=== PATIENT | female | born 1935 | race Caucasian/White ===

== ENCOUNTER 2023-12-31 06:58 | Day surgery (SDC) | payer MEDICARE, SELFPAY ==
--- NOTE | 2023-12-30 | HP_ITS ---
PREOPERATIVE HISTORY AND PHYSICAL Date:? 12/30/2023 HISTORY:? Patient is an 88-year-old, white female with complaints of declining vision out of her right eye.? She states that she believes this has occurred over the last 2-3 years, gradually worsening.? It has affected her distance/near vision, and examples of this are items such as watching television and working on the computer.? She states it is constant in nature, and has difficulty at night time with headlights creating glare and halos. PAST OCULAR HISTORY:? 1.? 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 2.? History of central retinal vein occlusion right eye. PAST MEDICAL HISTORY: 1.? Recurrent UTIs. 2.? Obesity. 3.? Arthritis. 4.? Total knee replacements bilaterally. SOCIAL HISTORY:? Denies tobacco, alcohol or recreational drug abuse.? SYSTEMIC MEDICATIONS:? Include cholecalciferol, albuterol, tamsulosin. ALLERGIES:? Denies. REVIEW OF SYSTEMS:? No pertinent positives. PHYSICAL EXAM:? GENERAL:? She is awake, alert and oriented x3, well developed, well nourished, in no acute distress.? HEART:? Regular rate and rhythm. LUNGS:? Clear bilaterally. ABDOMEN:? Soft, non-tender, non-distended. EXTREMITIES:? No pitting edema. OPHTHALMIC EXAM:? Revealed a visual acuity of 20/100 in the right and 20/400 in the left.?? Pupils motility, muscle balance, confrontational visual marte within normal limits bilaterally.? Pressures were measured at 16 bilaterally.? Slit lamp exam revealed blepharitis with a severe decrease in tear film bilaterally.? Conjunctiva, cornea, anterior chamber and iris were within normal limits bilaterally.? Lens status demonstrated 2+ nuclear sclerosis, 3+ cortical changes and 2+ PSC bilaterally. FUNDUS EXAM:? Revealed a good view with good dilation bilaterally.? Optic discs, vessels, periphery and vitreous were within normal limits bilaterally.? Macula demonstrated RPE changes with atrophy and < > in the right eye, and a large area of RPE atrophy with < > in the left eye.? ASSESSMENT AND PLAN:? Visually significant cataract, right eye. After risks, benefits, alternatives, as well as expectations were delivered to the patient, she elected to go forward with cataract removal.? She understands the risks include but not limited to infection, bleeding, loss of vision, loss of the eye itself.? Secondly, she understands postoperatively she is likely to require spectacle correction for best visual acuity.? Finally, a complete ophthalmic exam was performed, and she shows macular degeneration that I understood to be limiting her vision; however, the cataracts at this time are felt to be significant enough to contribute as well. After understanding all the risks as well as expectations, she elected to go forward with procedure as listed above and will be doing so in the near future. ALFA
--- NOTE | 2023-12-31 | OP_ITS ---
OP Note OPERATION DATE: ??12/31/2023 SURGEON:? Ovidio Mitchell M.D. PREOPERATIVE DIAGNOSIS:? Nuclear sclerotic cataract right eye. POSTOPERATIVE DIAGNOSIS:? Nuclear sclerotic cataract right eye. PROCEDURE NAME:? Cataract extraction with intraocular lens placement for the right eye. ANESTHESIA:? Topical. ESTIMATED BLOOD LOSS:? Zero. COMPLICATIONS:? None. PROCEDURE:? The patient was brought to the Operating Room in supine position.? After proper identification, the right eye was prepped and draped in a sterile ophthalmic fashion.? A paracentesis created at the 11 o'clock position.? Approximately 1 cc of unpreserved Xylocaine was injected into the anterior chamber followed by Amvisc Plus.? Using a 2.6 mm Keratome blade, a clear corneal incision was created at the 9 o'clock limbus.? A cystotome was then used to begin a curvilinear capsulorrhexis that was continued for 360 degrees with the Utrata forceps.? BSS on a 26 gauge cannula was injected beneath the anterior capsule to hydrodissect as well as hydrodelineate the lens.? After ensuring mobility, phacoemulsification was performed in a [id number]-type fashion.? After all nuclear material had been removed from the eye, IA was introduced and all residual cortical material was cleaned up.? Additional Amvisc Plus was injected into the posterior bag and a lens model MX60, 20.0 diopters was injected and dialed into position.? After ensuring centration, IA was re- introduced into the anterior chamber and all residual Amvisc Plus removed from the eye.? BSS on a 30 gauge cannula was injected into the stroma of both the clear corneal incision as well as paracentesis to hydrate the wounds.? Additional BSS was injected into the anterior chamber to pressurize the eye at approximately 20 to 22 mmHg by finger tension.? 0.1 cc of antibiotic was injected into the anterior chamber and Weck-Yelena sponges were used to check the wounds to be watertight.? One drop of apraclonidine and one drop of prednisolone acetate were placed into the eye and a shield was placed over top. The patient was sent to the postoperative area in satisfactory condition to follow up the following day for postoperative care. ALFA
[2023-12-31] MEDS: PHENYLEPHRINE HCL 2.5% OP SOL 40 DROP/2 ML BOTTLE OP ×4 (07:19→07:45)
[2023-12-31] MEDS: DIAZEPAM 5 MG TABLET PO (07:19)
[2023-12-31] MEDS: TROPICAMIDE 1% OP SOL 300 DROP/15 ML BOTTLE OP ×4 (07:20→07:46)
[2023-12-31] MEDS: CYCLOPENTOLATE HCL 1% OP SOL 40 DROP/2 ML BOTTLE OP ×4 (07:20→07:46)
[2023-12-31] MEDS: BESIFLOXACIN HCL 100 DROP DROPS.SUSP OP ×4 (07:20→07:46)
[2023-12-31 07:34] VITALS: BP 140/90; PULSE 76; TEMP 36.3; O2SAT 95
[2023-12-31] MEDS: PROPARACAINE HCL 0.5% 300 DROP/15 ML BOTTLE OP (08:31)
[2023-12-31 08:36] VITALS: BP 154/95; PULSE 66; O2SAT 96
[2023-12-31] MEDS: HYALURONATE SODIUM 16 MG/ML SYRINGE OP (08:38)
[2023-12-31] MEDS: LIDOCAINE 2% JELLY 10 ML TOPICAL (08:38)
[2023-12-31] MEDS: APRACLONIDINE HCL 0.5% SOL 100 DROP/5 ML BOTTLE OP (08:38)
[2023-12-31] MEDS: LIDOCAINE HCL 1% PF 20 MG/2 ML VIAL INJ (08:39)
[2023-12-31] MEDS: PHENYLEPHRINE/KETOROLAC 1-0.3% ML VIAL 4 ML IRR (08:39)
[2023-12-31] MEDS: BETADINE POVIDONE-IODINE 5% OP SOL 30 ML BOTTLE OP (08:39)
[2023-12-31] MEDS: TETRACAINE HCL 0.5% OP SOL 80 DROP/4 ML BOTTLE OP (08:40)
[2023-12-31] MEDS: PREDNISOLONE ACETATE OP 1% SUSP 100 DROPS/5 ML 1 DROP OP (08:40)
[2023-12-31 08:41] VITALS: BP 156/85; PULSE 66; O2SAT 96
[2023-12-31] MEDS: CEFUROXIME SODIUM 750 MG, 0.9 % SODIUM CHLORIDE 16.3 ML OP (08:41)
== END 2023-12-31 09:03 | disposition home or self-care (01) ==
LOC: SURGOUT 07:01
PROVIDERS: Visit Provider Ophthalmology
PROC: (CPT 66984; principal; 2023-12-31 08:20)
DX: H25.11 Age-related nuclear cataract, right eye (principal)
CPT/HCPCS: 66984; V2630

== ENCOUNTER 2024-02-04 06:39 | Day surgery (SDC) | payer MEDICARE, SELFPAY ==
--- NOTE | 2024-02-03 | HP_ITS ---
PREOPERATIVE HISTORY AND PHYSICAL Date:? 02/03/2024 HISTORY:? The patient is an 88-year-old white female with complaints of declining vision out of her left eye.? She believes that the onset of this has been gradual over the last 1-2 years.? Affects of distance vision such as road signs and the television.? She also states having night time difficulty with glare and halos.? Additionally, she states having difficulty reading. PAST OCULAR HISTORY / PAST MEDICAL HISTORY / SOCIAL HISTORY / MEDICATIONS / ALLERGIES TO MEDICATIONS / REVIEW OF SYSTEMS / PHYSICAL EXAM:? Unchanged from previously dictated. ASSESSMENT AND PLAN:? Visually significant cataract, left eye.? After risks, benefits, alternatives, as well as expectations were delivered to the patient, she elected to go forward with cataract removal.? She understands the risks include but not limited to infection, bleeding, loss of vision, loss of the eye itself.? Secondly, she understands postoperatively she is likely to require spectacle correction for best visual acuity.? Finally, a complete ophthalmic exam was performed, there is not determined to be any other source of visual decline other than that of the cataract.? After understanding all the risks as well as expectations, she elected to go forward with the procedure as listed above and will be doing so in the near future. ALFA
[2024-02-04] MEDS: CYCLOPENTOLATE HCL 1% OP SOL 40 DROP/2 ML BOTTLE OP ×4 (06:58→07:27)
[2024-02-04] MEDS: TROPICAMIDE 1% OP SOL 300 DROP/15 ML BOTTLE OP ×4 (06:58→07:27)
[2024-02-04] MEDS: PHENYLEPHRINE HCL 2.5% OP SOL 40 DROP/2 ML BOTTLE OP ×4 (06:59→07:27)
[2024-02-04] MEDS: BESIFLOXACIN HCL 100 DROP DROPS.SUSP OP ×4 (07:00→07:27)
[2024-02-04] MEDS: DIAZEPAM 5 MG TABLET PO (07:03)
[2024-02-04 07:07] VITALS: BP 159/95; PULSE 71; TEMP 35.8; O2SAT 95
[2024-02-04] MEDS: PROPARACAINE HCL 0.5% 300 DROP/15 ML BOTTLE OP (07:33)
[2024-02-04] MEDS: BETADINE POVIDONE-IODINE 5% OP SOL 30 ML BOTTLE OP (07:34)
[2024-02-04 07:40] VITALS: BP 148/90; PULSE 64; O2SAT 97
[2024-02-04] MEDS: APRACLONIDINE HCL 0.5% SOL 100 DROP/5 ML BOTTLE OP (07:44)
[2024-02-04] MEDS: LIDOCAINE 2% JELLY 10 ML TOPICAL (07:44)
[2024-02-04] MEDS: HYALURONATE SODIUM 16 MG/ML SYRINGE OP (07:44)
--- NOTE | 2024-02-04 07:44 | OP_ITS ---
OP Note OPERATION DATE: ??02/04/2024 SURGEON:? Ovidio Mitchell M.D. PREOPERATIVE DIAGNOSIS:? Nuclear sclerotic cataract left eye. POSTOPERATIVE DIAGNOSIS:? Nuclear sclerotic cataract left eye. PROCEDURE:? Cataract extraction with intraocular lens placed for the left eye. ANESTHESIA:? Topical ESTIMATED BLOOD LOSS:? Zero. COMPLICATIONS:? None. PROCEDURE:? The patient was brought to the Operating Room in supine position.? After proper identification, the left eye was prepped and draped in a sterile ophthalmic fashion.? A paracentesis created at the 5 o'clock position.? Approximately 1 cc of unpreserved Xylocaine was injected into the anterior chamber followed by Amvisc Plus.? Using a 2.6 mm Keratome blade, a clear corneal incision was created at the 2 o'clock limbus.? A cystotome was then used to begin a curvilinear capsulorrhexis that was continued for 360 degrees with the Utrata forceps.? BSS on a 26 gauge cannula was injected beneath the anterior capsule to hydrodissect as well as hydrodelineate the lens.? After ensuring mobility, phacoemulsification was performed in a [id number]-type fashion.? After all nuclear material had been removed from the eye, IA was introduced and all residual cortical material was cleaned up.? Additional Amvisc Plus was injected into the posterior bag and a lens model MX60, 18.0 diopters was injected and dialed into position.? After ensuring centration, IA was reintroduced into the anterior chamber and all residual Amvisc Plus was removed from the eye.? BSS on a 30 gauge cannula was injected into the stroma of both the clear corneal incision as well as paracentesis to hydrate the wounds.? Additional BSS was injected into the anterior chamber to pressurize the eye at approximately 20 to 22 mmHg by finger tension.? 0.1 cc of antibiotic was injected into the anterior chamber.? Weck-Yelena sponges were used to check the wounds to be watertight.? One drop of apraclonidine and one drop of prednisolone acetate placed into the eye and a shield was placed over top. The patient was sent to the postoperative area in satisfactory condition to follow up the following day for postoperative care. ALFA
[2024-02-04] MEDS: LIDOCAINE HCL 1% PF 20 MG/2 ML VIAL INJ (07:45)
[2024-02-04] MEDS: PREDNISOLONE ACETATE OP 1% SUSP 100 DROPS/5 ML 1 DROP OP (07:45)
[2024-02-04] MEDS: TETRACAINE HCL 0.5% OP SOL 80 DROP/4 ML BOTTLE OP (07:45)
[2024-02-04] MEDS: PHENYLEPHRINE/KETOROLAC 1-0.3% ML VIAL 4 ML IRR (07:45)
[2024-02-04] MEDS: CEFUROXIME SODIUM 750 MG, 0.9 % SODIUM CHLORIDE 16.3 ML OP (07:46)
[2024-02-04 07:49] VITALS: BP 160/88; PULSE 68; O2SAT 98
== END 2024-02-04 08:07 | disposition home or self-care (01) ==
LOC: SURGOUT 06:40
PROVIDERS: Visit Provider Ophthalmology
PROC: (CPT 66984; principal; 2024-02-04 07:30)
DX: H25.12 Age-related nuclear cataract, left eye (principal)
CPT/HCPCS: 66984; J0697; V2630

== ENCOUNTER 2024-02-04 07:33 | Outpatient (OUT) | payer MEDICARE, SELFPAY | END 2024-02-04 07:34 | disposition home or self-care (01) | LOC: PST 07:33 | PROVIDERS: Visit Provider Ophthalmology | DX: Z01.818 Encounter for other preprocedural examination (principal); H25.12 Age-related nuclear cataract, left eye ==

== ENCOUNTER 2024-08-17 15:19 | Outpatient (OUT) | payer MEDICARE, SELFPAY | END 2024-08-17 15:20 | disposition home or self-care (01) | LOC: WC 15:20 | PROVIDERS: Visit Provider Physician Assistant | DX: L97.919 Non-pressure chronic ulcer of unspecified part of right lower leg with unspecified severity (principal) | CPT/HCPCS: G0463 ==

== ENCOUNTER 2024-08-24 13:10 | Outpatient (RCR) | payer MEDICARE, SELFPAY | END 2024-09-28 14:00 | disposition home or self-care (01) | LOC: PT 13:10 | PROVIDERS: Visit Provider Neurological Surgery | DX: M48.00 Spinal stenosis, site unspecified (principal) | CPT/HCPCS: 97010; 97012; 97110; 97112; 97162; G0283 ==

== ENCOUNTER 2024-09-07 15:39 | Outpatient (OUT) | payer MEDICARE, SELFPAY | END 2024-09-07 15:40 | disposition home or self-care (01) | LOC: WC 15:39 | PROVIDERS: Visit Provider Physician Assistant | DX: L97.918 Non-pressure chronic ulcer of unspecified part of right lower leg with other specified severity (principal); L97.919 Non-pressure chronic ulcer of unspecified part of right lower leg with unspecified severity | CPT/HCPCS: 11042 ==

== ENCOUNTER 2024-09-28 11:03 | Outpatient (OUT) | payer MEDICARE, SELFPAY | END 2024-09-28 11:04 | disposition home or self-care (01) | LOC: WC 11:03 | PROVIDERS: Visit Provider Physician Assistant | DX: L97.812 Non-pressure chronic ulcer of other part of right lower leg with fat layer exposed (principal) | CPT/HCPCS: G0463 ==

== ENCOUNTER 2024-10-19 13:38 | Outpatient (OUT) | payer MEDICARE, SELFPAY | END 2024-10-19 13:39 | disposition home or self-care (01) | LOC: WC 13:38 | PROVIDERS: Visit Provider Physician Assistant | DX: L97.812 Non-pressure chronic ulcer of other part of right lower leg with fat layer exposed (principal) | CPT/HCPCS: G0463 ==

== ENCOUNTER 2024-11-09 11:15 | Outpatient (OUT) | payer MEDICARE, SELFPAY | END 2024-11-09 11:16 | disposition home or self-care (01) | LOC: WC 11:15 | PROVIDERS: Visit Provider Physician Assistant | DX: L97.812 Non-pressure chronic ulcer of other part of right lower leg with fat layer exposed (principal) | CPT/HCPCS: G0463 ==

== ENCOUNTER 2024-11-23 16:00 | Outpatient (OUT) | payer MEDICARE, SELFPAY | END 2024-11-23 16:01 | disposition home or self-care (01) | LOC: WC 16:01 | PROVIDERS: Visit Provider Physician Assistant | DX: L97.812 Non-pressure chronic ulcer of other part of right lower leg with fat layer exposed (principal) | CPT/HCPCS: A6213; G0463 ==

== ENCOUNTER 2024-12-07 14:36 | Outpatient (OUT) | payer MEDICARE, SELFPAY | END 2024-12-07 14:37 | disposition home or self-care (01) | LOC: WC 14:36 | PROVIDERS: Visit Provider Physician Assistant | DX: L97.812 Non-pressure chronic ulcer of other part of right lower leg with fat layer exposed (principal) | CPT/HCPCS: G0463 ==

== ENCOUNTER 2025-02-18 12:54 | Outpatient (OUT) | payer MEDICARE, SELFPAY ==
--- NOTE | 2025-02-18 | XR_ITS ---
[facility] [place] [id number] Patient Name: JERRICA ROCK MRN: [id number] date: 1935 Sex: F Assigned Patient Location: [facility] Current Patient Location: [facility] Accession/Order Number: [id number] Exam Date: 02/18/2025 13:18 Report Date: 02/18/2025 13:19 At the request of: CORAZON PIEDRA Procedure: XR abdomen 1V KUB: CLINICAL INFORMATION: Kidney stone follow-up COMPARISON: CT abdomen and pelvis 07/22/2022 FINDINGS: No suspicious urinary tract calculus. No bowel obstruction or free air. Osseous structures demonstrate degenerative change. XR/XR abdomen 1V IMPRESSION: NO SUSPICIOUS OR URINARY TRACT CALCULUS. Impression dictated by: Samina Coreas Jr.ORacheal 02/18/2025 1:19 PM Dictation Location: [place] [id number] Electronically authenticated by: [id number] Y Date: 02/18/2025 13:19
--- OUTSIDE RECORDS SUMMARY | 2025-02-18 13:01 | XMS_ITS | CCD ---
Author Organization [facility] Inform ion Partnership [facility] Care Team Providers Care Commercial Helicopter Pilot Name Role Phone Hollie, Julius Unavailable Unavailable Family Physician Unavailable Unavailable Hanna vailable Hollie, Julius Unavailable Unavailable Hollie, Julius Unavailable Unavailable Family Physician Unavailable Unavailable Hanna vailable Hollie, Julius Unavailable Unavailable Yelena MICHELLE Primary Care Physician [phone] Jhon Cartwright Unavailable Andi Asher Unavailable Nazia Haney Unavailable DR YELENA MICHELLE Primary Care Unavailable ARIAN MEDINA Admitting Unavailable ARIAN MEDINA Attending Unavailable PAY, DR ALEXANDRA Consulting Unavailable SHAIKH Oscar MCCALL Consulting Unavailable BETH TURCIOS Consulting Unavailable HAYLEY DE DIOS Consulting Unavailable Unavailable Primary Care Provider UnavailYelena Mcguire MD Primary Care Provider [phone] YELENA MICHELLE Primary Care Unavailable RODY, ZAINULABEDIN Referring Unavailable YELENA MICHELLE Primary Care Unavailable ALY MONROE JR Admitting Unavailable ALY MONROE JR Attending Unavailable RODY, ZAINULABEDIN Attending Unavailable HENRY HARMON Consulting Unavailable RODY, ZAINULABEDIN Admitting Unavailable RODY, ZAINULABEDIN Consulting Unavailable MD Yelena Michelle Primary Care Provider MD Dallin Contreras II Attending Provider Dallin Contreras II Unavailable [phone] MD Yelena Michelle Primary Care Provider [phone] DO Avel Mcghee Attending Provider [phone] MD Roque Renee Attending Provider MD Regina Nick Referring Provider Yelena Michelle MD Primary Care Provider MICHAEL CRESPO Attending Unavailable MICHAEL CRESPO Attending Unavailable COLLEEN RAY Attending Unavailable COLLEEN RAY Attending Unavailable ORIANA MORRISON Attending Unavailable TANIKA WIN Referring Unavailable Yelena Michelle MD Primary Care Provider [phone] Matthew Bravo DO Attending Provider [phone] Regina Nick Attending Unavailabl e David-Malena, Regina Yaser Admitting Unavailabl e Yelena MICHELLE Attending Unavailable David-Malena, Regina He Attending Unavailabl e Al-Malena, Regina Yaser Referring Unavailabl e Al-Malena, Regina He Attending Unavailabl e David-Malena, Regina He Admitting Unavailabl Yelena Dupree MD Primary Care Provider Matthew Bravo DO Attending Provider Rex London MD Attending Provider [phone] Radha Waters Attending Unavailable Radha Waters Attending Unavailable Yelena MICHELLE Attending Unavailable Yelena MICHELLE Attending Unavailable Yelena MICHELLE Attending Unavailable Yelena Osorio Attending Unavailable Edmond Vidal Admitting Unavailable Edmond Vidal Attending Unavailable NONE, XXXX Referring Unavailable COLE FRANCIS Admitting Unavailab COLE Hdz Attending Unavailab Yelena Castelan Admitting Unavailable Yelena MICHELLE Attending Unavailable Radha Waters Attending Unavailable Yelena MICHELLE Attending Unavailable Yelena MICHELLE Admitting Unavailable Yelena Osorio Attending Unavailable Yelena MICHELLE Attending Unavailable Yelena Osorio Attending Unavailable Yelena MICHELLE Attending Unavailable Yelena MICHELLE Admitting Unavailable Rex London Attending Unavailable Rex London Admitting Unavailable Yelena Michelle Primary Care Unavailable Matthew Bravo Admitting Unavailable Yelena Michelle Primary Care Unavailable Matthew Bravo Attending Unavailable Yelena Michelle MD Primary Care Provider [phone] Yelena MICHELLE Attending Unavailable Yelena MICHELLE Attending Unavailable Yelena MICHELLE Attending Unavailable Yelena Osorio Attending Unavailable CORAZON FRANCIS Attending Unavailable Al-Maralfonso, Regina He Attending Unavailabl e COLE Vidal Admitting Unavailable COLE Vidal Attending Unavailable NONE, XXXX Referring Unavailable Al-Marrawi, Regina Yaser Attending Unavailabl e Al-Marrawi, Regina Yaser Referring Unavailabl e Al-Marrawi, Mhd Yaser Admitting Unavailabl e Al-Marrawi, Arelid Yaser Attending Unavailabl e Al-Marrawi, Arelid Yaser Admitting Unavailabl e Radha Waters Attending Unavailable Edmond Vidal Admitting Unavailable Edmond Vidal Attending Unavailable NONE, XXXX Referring Unavailable Edmond Vidal Admitting Unavailable Edmond Vidal Attending Unavailable Edmond Vidal Referring Unavailable Al-Maralfonso, Regina He Admitting Unavailabl e Al-Maralfonso, Regina He Attending Unavailabl Yelena Dupree Admitting Unavailable Yelena MICHELLE Attending Unavailable Yelena MICHELLE Attending Unavailable Yelena MICHELLE Attending Unavailable WAYNE, Yelena Howard Attending Unavailable WAYNE, Yelena Howard Attending Unavailable Yelena MICHELLE Attending Unavailable Al-Malena, Regina He Attending Unavailabl e Al-Marrawi, Regina He Admitting Unavailabl e Yelena MICHELLE Admitting Unavailable Yelena MICHELLE Attending Unavailable Yelena MICHELLE Attending Unavailable Yelena Michelle MD Primary Care Provider [phone] Rex London MD Attending Provider Matthew Bravo DO Attending Provider Amberly Ortega NP Attending Provider [phone] Yelena MICHELLE Attending Unavailable Yelena MICHELLE Admitting Unavailable David-Malena, Regian He Attending Unavailabl e Al-Marradevin, Regina He Admitting Unavailabl e CORAZON FRANCIS Attending Unavailable Medications Current Medications Medication Drug Class(es) Dates Sig (Normalized) Sig (Original) Acetaminophen (20 sources) Start: 07-23-2022 acetaminophen (TYLENOL) tablet 650 mg Start: 02-06-2022 Tylenol 8 Hour Caplet 650 mg oral tablet, extended release 1,300 mg = 2 tab(s), Oral, BID, Refills(s) 0 Start Date: 02/06/22 Status: Ordered Start: 10-30-2021 take 650 mg by mouth every four hours Tylenol 650 mg, Oral, q4hr, Refills(s) 0 Start Date: 10/30/21 Status: Ordered Start: 06-25-2020 End: 07-17-2020 take 2 tablets by mouth once as needed for pain Acetaminophen (Tylenol) 325 mg Tablet Discontinued 650 MG PO Once as needed for Pain June 25, 2020 1:00am July 17, 2020 12:31pm [id number] 200 actuat albuterol 0.09 mg/actuat metered dose inhaler (14 sources) beta2-Adrenergic Agonist Start: 06-10-2022 take 2 puff(s) by mouth every four hours as needed albuterol HFA 90 mcg/act inhaler INHALE 2 PUFFS BY MOUTH EVERY 4 HOURS NEEDED FOR 14 DAYS 06/10/2022 Active Start: 06-10-2022 take 2 puff(s) by in halation every four hours as needed Albuterol Sulfate HFA 108 (90 Base) MCG/ACT 2 puffs as needed Inhalation every 4 hours for 14 days May, Active alendronic acid 70 mg oral tablet (18 sources) Bisphosphonate Start: 09-23-2024 take 1 tablet by mouth every week Alendronate 70 mg tablet Active 70 MG PO every week September 23, 2024 1:00am Complies with drug therapy Start: 08-29-2024 take 6-8 [oz_av] by mouth once daily Fosamax 70 mg Tab 70 mg = 1 tab(s), Oral, q7day, Take 1 tablet once a week, with 6-8 oz plain water, at least 30 minutes before first food, beverage, or medication of the day. Remain in upright position for at least 30 min. after taking tablet., # 12 tab(s), Refills(s) 2, Pharmacy: [facility]/pharmacy #[id number], 162, cm, 08/29/24 11:15:00 EST, Height/Length Dosing, 82.1, kg, 08/29/24 11:15:00 EST, Weight Dosing Start Date: 08/29/24 Status: Ordered Quantity: 12.0 Unit: tab(s) Repeat number: 3 Indications: Monoclonal gammopathy; Personal history of malignant neoplasm of breast; Other specified disorders of bone density and structure, unspecified site; Start: 08-04-2023 Fosamax 70 mg Tab 70 mg = 1 tab(s), Oral, q7day, # 12 tab(s), Refills(s) 3, Pharmacy: [facility]/pharmacy #[id number], 162, cm, 08/03/23 9:39:00 EST, Height/Length Dosing, 84.7, kg, 08/03/23 9:39:00 EST, Weight Dosing Start Date: 08/04/23 Status: Ordered amoxicillin 500 mg / clavulanate 125 mg oral tablet (1 source) Penicillin-class Antibacterial Start: 07-23-2022 End: 07-28-2022 take 1 tablet by mouth once at bedtime amoxicillin-clavulanate (AUGMENTIN) 500-125 MG per tablet Take 1 tablet by mouth in the morning and at bedtime for 5 days 10 tablet 0 07/23/2022 07/28/2022 Active Areds 2 (17 sources) Start: 06-25-2020 take 1 tablet by mouth twice daily Areds 2 Active 1 TAB PO Twice daily June 25, 2020 1:00am Complies with drug therapy Start: 06-25-2020 take 1 tablet by koffi th twice daily Areds 2 Active 1 TAB PO Twice daily June 25, 2020 12:00am Start: 06-25-2020 take 1 tablet by koffi th twice daily Areds 2 Active 1 TAB PO Twice daily June 25, 2020 1:00am ascorbic acid 500 mg oral tablet (20 sources) Vitamin C Start: 10-16-2020 take 500 mg by mouth once daily Vitamin C 500 mg, Oral, Daily, Refills(s) 0, Prophylaxis Start Date: 10/16/20 Status: Ordered Vitamin C Active Aspir-81 81 MG (2 sources) take 1 tablet by mouth once daily Aspir-81 81 MG 1 tablet Orally Once a day Active aspirin 81 mg delayed release oral tablet (20 sources) Platelet Aggregation Inhibitor, Nonsteroidal Anti-inflammatory Drug Start: 10-03-2023 take 1 tablet by mouth once daily ASPIRIN 81 PO TAKE 1 TABLET BY MOUTH EVERY DAY 10/03/2023 Active Start: 10-03-2023 take 1 tablet by mouth once As pirin 81 mg tablet,delayed release (DR/EC) Active 81 MG PO Once December 12, 2024 2:30pm Complies with drug therapy Start: 07-10-2020 End: 12-12-2024 take 1 tablet by mouth twice daily Aspirin 81 mg Tablet,Delayed Release (Dr/Ec) Discontinued 81 MG PO Twice daily 40 July 17, 2020 1:00am December 12, 2024 2:31pm Start: 08-05-2017 End: 06-25-2020 take 1 tablet by mouth once daily Aspirin 81 mg Tablet,Chewable Discontinued 1 TAB PO Daily August 05, 2017 1:00am June 25, 2020 2:57pm azithromycin 500 mg oral tablet (2 sources) Macrolide Antimicrobial Start: 10-03-2023 End: 10-05-2023 take 1 tablet by mouth once daily azithromycin 500 mg oral tablet 500 mg = 1 tab(s), Oral, Daily, X 2 day(s), # 2 tab(s), Refills(s) 0, Pharmacy: [facility]/pharmacy #[id number], 162, cm, 09/30/23 16:48:00 EST, Height/Length Dosing, 88.7, kg, 09/30/23 16:48:00 EST, Weight Dosing Start Date: 10/03/23 Stop Date: 10/05/23 Status: Ordered Start: 06-10-2022 Azithromycin 2 50 MG 2 tablet on the first day, then 1 tablet daily for 4 days Orally Once a day for 5 day(s) May, Active B-12 (20 sources) Start: 01-02-2020 B-12 1,000 microgram, Oral, Daily, Refills(s) 0, Prophylaxis Start Date: 01/02/20 Status: Ordered benzonatate 100 mg oral capsule (1 source) Non-narcotic Antitussive Start: 06-10-2022 take 1 capsule by mouth every eight hours Tessalon Perles 100 MG 1 capsule as needed Orally Three times a day for 7 days May, Active Calcium (20 sources) Phosphate Binder, Calcium Start: 03-30-2015 Calcium 500+D 1 tab(s), Chewed, Daily, Refill(s) 0, Prophylaxis Start Date: 03/30/15 Status: Ordered calcium 200 MG t ablet 1 tab Oral Active Calcium + D Acti ve calcium carbonate 1250 mg / cholecalciferol 200 unt oral tablet (20 sources) Vitamin D Start: 08-24-2017 End: 07-17-2020 take 1 tablet by mouth once daily Calcium Carbonate-Vitamin D3 (Oyster Shell Calcium-Vit D3) 500 mg(1,250mg) -200 unit Tablet Active 1 TAB PO Daily July 17, 2020 1:00am Complies with drug therapy Calcium Carbonate-Vitamin D3 (Oyster Shell Calcium-Vit D3) 500 mg(1,250mg) -200 unit Tablet (7 sources) Start: 07-17-2020 take 1 tablet by mouth once daily Calcium Carbonate-Vitamin D3 (Oyster Shell Calcium-Vit D3) 500 mg(1,250mg) -200 unit Tablet Active 1 TAB PO Daily July 17, 2020 1:00am Calcium Plus Vitamin D3 (20 sources) Start: 04-10-2023 take 1 tablet by mouth twice daily Calcium Plus Vitamin D3 1 tab, Oral, BID, Refill(s) 0, Prophylaxis Start Date: 04/10/23 Status: Ordered Repeat number: 1 Start: 04-10-2023 take 1 tablet by koffi twice daily Calcium Plus Vitamin D3 1 tab, Oral, BID, Refill(s) 0, Prophylaxis Start Date: 04/10/23 Status: Ordered cefTRIAXone (ROCEPHIN) 1,000 mg in sterile water 10 mL IV syringe (1 source) Start: 07-23-2022 cefTRIAXone (ROCEPHIN) 1,000 mg in sterile water 10 mL IV syringe ciclopirox 7.7 mg/ml topical cream (8 sources) Start: 03-29-2024 ciclopirox (Lo prox) 0.77 % cream Indications: Erythema intertrigo Apply thin layer to affected area once a day, 30 day supply 30 g 11 03/29/2024 Active colesevelam hydrochloride 625 mg oral tablet (20 sources) Bile Acid Sequestrant Start: 09-23-2024 Coleseve cortes 625 mg tablet Active MG PO September 23, 2024 1:00am Start: 06-15-2024 take 3 tablets by mo [facility] twice daily Colesevelam 625 mg tablet Active 1875 MG PO Twice daily September 23, 2024 1:00am Complies with drug therapy cyclobenzaprine hydrochloride 10 mg oral tablet (1 source) Muscle Relaxant Start: 11-24-2021 End: 11-29-2021 take 1 tablet by mouth three times daily cyclobenzaprine 10 mg Tab 10 mg = 1 tab(s), Oral, TID, X 5 day(s), # 15 tab(s), Refills(s) 0, Pharmacy: [facility]/pharmacy #[id number], 165, cm, 11/24/21 8:54:00 EDT, Height/Length Dosing, 92.1, kg, 11/24/21 8:54:00 EDT, Weight Dosing Start Date: 11/24/21 Stop Date: 11/29/21 Status: Ordered diclofenac sodium 0.01 mg/mg topical gel (15 sources) Nonsteroidal Anti-inflammatory Drug Start: 11-27-2022 diclofenac sodium 1 % gel Apply topically 3 (three) times a day. 11/27/2022 Active Start: 10-30-2022 Voltaren 1 % A pply 1-2 grams to the affected area Externally 4-5 times a day for 30 days Oct, Active diphenhydrAMINE hydrochloride 25 mg oral capsule (20 sources) Histamine-1 Receptor Antagonist Start: 09-23-2024 take 1 capsule by mouth once daily at bedtime as needed Diphenhydramine Hcl (Benadryl) 25 mg capsule Active 25 MG PO Daily at bedtime as needed for insomnia September 23, 2024 1:00am Complies with drug therapy Start: 12-09-2018 take 25 mg by mouth once daily at bedtime Benadryl 25 mg, Oral, Once a day (at bedtime), takes OTC rx, Allergy symptoms Start Date: 12/09/18 Status: Ordered Repeat number: 1 Start: 08-24-2017 End: 07-17-2020 take 1 tablet by mouth every four to six hours as needed Diphenhydramine Hcl (Benadryl Allergy) 25 mg Tablet Discontinued 25 MG PO EVERY 4-6 HOURS as needed for Allergy Symptoms August 24, 2017 1:00am July 17, 2020 12:31pm diphenhydrAMINE (BENADryl) 25 MG capsule Take 25 mg by mouth as needed at bedtime. Active Benadryl Active 0.4 ml enoxaparin sodium 100 mg/ml prefilled syringe (1 source) Low Molecular Weight Heparin Start: 07-23-2022 enoxaparin (LOVENOX) injection 40 mg 12 hr guaiFENesin 600 mg extended release oral tablet (1 source) Start: 10-03-2023 End: 10-08-2023 take 2 tablets by mouth twice daily Mucinex 600 mg Tab-ER 1,200 mg = 2 tab(s), Oral, BID, X 5 day(s), # 20 tab(s), Refills(s) 0, Pharmacy: [facility]/pharmacy #[id number], 162, cm, 09/30/23 16:48:00 EST, Height/Length Dosing, 88.7, kg, 09/30/23 16:48:00 EST, Weight Dosing Start Date: 10/03/23 Stop Date: 10/08/23 Status: Ordered Handicap Parking Permit (7 sources) Start: 03-20-2023 Handicap Parking Permit Handicap Parking Permit, See Instructions, 1 EA, 0, One placard for 5 years., Supply Start Date: 03/20/23 Status: Ordered hydroCHLOROthiazide 25 mg / triamterene 37.5 mg oral tablet (20 sources) Potassium-spari ng Diuretic, Thiazide Diuretic Start: 11-22-2024 hydrochlorothiaz frantz-triamterene 25 mg-37.5 mg Tab See Instructions, 90 tab(s), Refill(s) 3, TAKE 1 TABLET BY MOUTH DAILY NEEDED FOR LEG SWELLING, [id number], 162, cm, 10/26/24 10:12:00 EDT, Height/Length Dosing, 80.5, kg, 10/26/24 10:12:00 EDT, Weight Dosing Start Date: 11/22/24 Status: Ordered Quantity: 90.0 Unit: tab(s) Repeat number: 1 Start: 05-07-2021 take 1 tablet by mouth once daily hydrochlorothiazide-triamterene 25 mg-37 .5 mg Tab 1 tab(s), Oral, Daily leg swelling, 30 tab(s), Refill(s) 5, [facility]/pharmacy #[id number], 162, cm, 04/05/24 13:53:00 EDT, Height/Length Dosing, 85.7, kg, 04/05/24 13:53:00 EDT, Weight Dosing Start Date: 04/05/24 Status: Ordered ibuprofen 800 mg oral tablet (20 sources) Nonsteroidal Anti-inflammatory Drug Start: 02-06-2022 take 800 mg by mouth every eight hours ibuprofen 800 mg, Oral, q8hr, Refills(s) 0 Start Date: 02/06/22 Status: Ordered Start: 08-24-2017 End: 06-25-2020 take 1 capsule by mouth every six hours as needed for pain Ibuprofen 200 mg Capsule Discontinued 200 MG PO Q6H as needed for Pain August 24, 2017 1:00am June 25, 2020 2:59pm letrozole 2.5 mg oral tablet (20 sources) Aromatase Inhibitor Start: 05-25-2023 End: 04-20-2025 take 1 tablet by mouth once daily Letrozole 2.5 mg tablet Active 2.5 MG PO Daily September 23, 2024 1:00am Complies with drug therapy lidocaine 0.05 mg/mg medicated patch (12 sources) Antiarrhythmic, Amide Local Anesthetic Start: 11-24-2021 Lidoderm 5% Patch 1 patch(es), Topical, Daily, 7 EA, Refill(s) 0, apply 12 hours on and 12 hours off daily, [facility]/pharmacy #[id number], 165, cm, 11/24/21 8:54:00 EDT, Height/Length Dosing, 92.1, kg, 11/24/21 8:54:00 EDT, Weight Dosing Start Date: 11/24/21 Status: Ordered Start: 11-24-2021 Lidoderm 5% Pa tch 1 patch(es), Topical, Daily, 7 EA, Refill(s) 0, apply 12 hours on and 12 hours off daily, [facility]/pharmacy #[id number], 165, cm, 11/24/21 8:54:00 EDT, Height/Length Dosing, 92.1, kg, 11/24/21 8:54:00 EDT, Weight Dosing Start Date: 11/24/21 Status: Ordered Loperamide (20 sources) Opioid Agonist Start: 07-15-2023 loperamide PRN as needed for loose stool, Refills(s) 0 Start Date: 07/15/23 Status: Ordered Repeat number: 1 Start: 07-15-2023 loperamide PRN as needed for loose stool, Refills(s) 0 Start Date: 07/15/23 Status: Ordered Start: 07-15-2023 loperamide Ref ills(s) 0 Start Date: 07/15/23 Status: Ordered Start: 04-29-2017 End: 07-17-2020 take 1 tablet by mouth every three hours as needed for diarrhea Loperamide 2 mg Tablet Discontinued 1 TAB PO Q3H as needed for Diarrhea April 29, 2017 12:00am July 17, 2020 12:31pm Start: 03-29-2015 take 2 mg by mouth t wice daily as needed Imodium A-D 2 mg, Oral, BID, PRN Loose stool, and prn, Refills(s) 0 Start Date: 03/29/15 Status: Ordered take 1 tablet by koffi th every six hours loperamide (Imodium A-D) 2 MG tablet Take 2 mg by mouth every 6 (six) hours. Active Loperamide / Simethicone (2 sources) Opioid Agonist Imodium Advanced 2-125 MG as directed Orally Active magnesium hydroxide 80 mg/ml oral suspension (1 source) Start: 07-23-2022 magnesium hydroxide (MILK OF MAGNESIA) 400 MG/5ML suspension 30 mL mecobalamin 1 mg chewable tablet (20 sources) Start: 05-25-2023 take 1 tablet by mouth once daily Mecobalamin (Vitamin B12) (B12 Active) 1,000 mcg Tablet,Chewable Active 1000 MCG PO Daily May 25, 2023 12:00am Complies with drug therapy Start: 06-25-2020 End: 07-17-2020 take 1 tablet by mouth once daily Mecobalamin (Vitamin B12) (B12 Active) 1,000 mcg Tablet,Chewable Discontinued 1000 MCG PO Daily June 25, 2020 1:00am July 17, 2020 12:31pm Start: 06-25-2020 End: 07-17-2020 take 1 tablet by mouth once daily Mecobalamin (Vitamin B12) (B12 Active) 1,000 mcg Tablet,Chewable Discontinued 1000 MCG PO Daily June 25, 2020 12:00am July 17, 2020 11:31am Start: 06-25-2020 End: 07-17-2020 take 1 tablet by mouth once daily Mecobalamin (Vitamin B12) (B12 Active) 1,000 mcg Tablet,Chewable Discontinued 1000 MCG PO Daily June 25, 2020 1:00am July 17, 2020 12:31pm Medrol Dosepack 4 mg Tab (1 source) Start: 11-24-2021 End: 11-30-2021 Medrol Dosepack 4 mg Tab = 1 packet(s), Oral, As Directed, as directed on package labeling, X 6 day(s), # 21 tab(s), Refills(s) 0, Pharmacy: [facility]/pharmacy #[id number], 165, cm, 11/24/21 8:54:00 EDT, Height/Length Dosing, 92.1, kg, 11/24/21 8:54:00 EDT, Weight Dosing Start Date: 11/24/21 Stop Date: 11/30/21 Status: Ordered methylPREDNISolone 4 mg oral tablet (5 sources) Corticosteroid Start: 10-30-2022 Medrol 4 MG as directed Orally as directed for 6 days Oct, Active Start: 06-10-2022 methylPREDNISo lone 4 MG as directed Orally for daily dose take half with breakfast, half with dinner for 6 days May, Active Start: 11-21-2015 Depo-Medrol 80 mg Oct, 80 mg 24 hr metoprolol succinate 50 mg extended release oral tablet (20 sources) beta-Adrenergic Dawood Start: 09-23-2024 take 1 tablet by mouth every twenty-four hours Metoprolol Succinate 50 mg tablet extended release 24 hr Active MG PO September 23, 2024 1:00am Start: 07-18-2024 take 1 tablet by koffi th once daily Metoprolol Succinate 50 mg tablet extended release 24 hr Active 50 MG PO Daily September 23, 2024 1:00am Complies with drug therapy Start: 12-16-2023 take 1 tablet by koffi th once daily Toprol XL 50 mg Tab-ER 50 mg = 1 tab(s), Oral, Daily, # 30 tab(s), Refills(s) 5, Pharmacy: [facility]/pharmacy #[id number], 162, cm, 12/16/23 13:49:00 EDT, Height/Length Dosing, 84.6, kg, 12/16/23 13:49:00 EDT, Weight Dosing Start Date: 12/16/23 Status: Ordered Start: 09-17-2023 End: 10-03-2023 take 1 tablet by mouth once daily Toprol XL 25 mg Tab-ER 25 mg = 1 tab(s), Oral, Daily, # 30 tab(s), Refills(s) 6, Pharmacy: [facility]/pharmacy #[id number], 162, cm, 09/17/23 13:16:00 EST, Height/Length Dosing, 88.7, kg, 09/17/23 13:16:00 EST, Weight Dosing Start Date: 09/17/23 Status: Ordered Start: 07-23-2022 metoprolol (LO PRESSOR) injection 5 mg Start: 07-23-2022 End: 08-22-2022 take 1 tablet by mouth twice daily metoprolol tartrate (LOPRESSOR) 25 MG tablet Take 1 tablet by mouth 2 times daily 60 tablet 0 07/23/2022 Active metroNIDAZOLE 500 mg oral tablet (2 sources) Nitroimidazole Antimicrobial take 1 tablet by mouth every eight hours metroNIDAZOLE 500 MG 1 tablet Orally Three times a day Active 24 hr mirabegron 25 mg extended release oral tablet (1 source) beta3-Adrenergic Agonist Start: End: take 1 tablet by mouth once daily Myrbetriq 25 mg oral tablet, extended release 25 mg = 1 tab(s), Oral, Daily, X 30 day(s), # 30 tab(s), Refills(s) 11, [id number], 165, cm, 10/27/22 14:19:00 EDT, Height/Length Dosing, 83, kg, 10/27/22 14:19:00 EDT, Weight Dosing Start Date: 10/27/22 Stop Date: 10/22/23 Status: Ordered Misc Medication (1 source) Start: Misc Medication See Instructions, AERDS one tablet BID Start Date: 10/30/21 Status: Ordered Multiple Vitamins-Minerals (ICAPS AREDS FORMULA PO) (13 sources) Multiple Vitamins-Minerals (ICAPS AREDS FORMULA PO) Take by mouth Daily. Active omeprazole 40 mg delayed release oral capsule (20 sources) Proton Pump Inhibitor Start: End: take 1 capsule by mouth before mealtime omeprazole (PriLOSEC) [address] capsule Take 40 mg by mouth in the morning. Take before meals. 12/25/2022 Active take 1 capsule by mouth once xochilt ly Omeprazole 40 MG TAKE 1 CAPSULE BY MOUTH EVERY DAY Oral for 90 Not-Taking ondansetron (ZOFRAN-ODT) disintegrating tablet 4 mg (1 source) Start: 07-23-2022 ondansetron (ZOFRAN-ODT) disintegrating tablet 4 mg pantoprazole 40 mg delayed release oral tablet (20 sources) Proton Pump Inhibitor Start: 06-15-2024 Pantoprazole 40 mg D R Tab Refills(s) 0 Start Date: 06/15/24 Status: Ordered Repeat number: 1 Start: 12-14-2023 End: 06-11-2024 take 1 tablet by mouth once daily Pantoprazole [address] Tab 40 mg = 1 tab(s), Oral, Daily, X 90 day(s), # 90 tab(s), Refills(s) 1, Pharmacy: [facility]/pharmacy #[id number], 162, cm, 12/14/23 14:01:00 EDT, Height/Length Dosing, 84.3, kg, 12/14/23 14:01:00 EDT, Weight Dosing Start Date: 12/14/23 Stop Date: 06/11/24 Status: Ordered Start: 07-15-2023 End: 10-13-2023 take 1 tablet by mouth once daily Pantoprazole [address] Tab 40 mg = 1 tab(s), Oral, Daily, X 90 day(s), # 90 tab(s), Refills(s) 0, Pharmacy: [facility]/pharmacy #[id number], 162, cm, 07/15/23 13:58:00 EST, Height/Length Dosing, 83.9, kg, 07/15/23 13:58:00 EST, Weight Dosing Start Date: 07/15/23 Stop Date: 10/13/23 Status: Ordered predniSONE 10 mg oral tablet (2 sources) Start: 10-03-2023 predniSONE 10 mg Tab = 1 -, Oral, As Directed, Take 3 tabs by mouth daily x3 days, then 2 tabs daily x3 days, then 1 tab daily x3 days., # 18 tab(s), Refills(s) 0, Pharmacy: [facility]/pharmacy #[id number], 162, cm, 09/30/23 16:48:00 EST, Height/Length Dosing, 88.7, kg, 09/30/23 16:48:00 EST, Weight Dosing Start Date: 10/03/23 Status: Ordered PreserVision AREDS 2 (20 sources) Start: 03-29-2015 take 1 capsule by mouth twice daily PreserVision AREDS 2 1 cap(s), Oral, BID, Refill(s) 0, Prophylaxis Start Date: 03/29/15 Status: Ordered PreserVision AREDS 2 oral capsule (20 sources) Start: 12-18-2022 take 1 tablet by mouth twice daily PreserVision AREDS 2 oral capsule 1 tab, Oral, BID, Prophylaxis Start Date: 12/18/22 Status: Ordered Start: 12-18-2022 take 1 tablet by koffi th twice daily PreserVision AREDS 2 oral capsule 1 tab, Oral, BID Start Date: 12/18/22 Status: Ordered Start: 12-18-2022 PreserVision A REDS 2 oral capsule See Instructions Start Date: 12/18/22 Status: Ordered Psyllium (20 sources) Start: 01-13-2023 take 1.7 g by mouth once daily Metamucil 1.7 gm, Oral, Daily, Refills(s) 0, Constipation Start Date: 01/13/23 Status: Ordered Repeat number: 1 Start: 01-13-2023 take 1.7 g by mouth once daily Metamucil 1.7 gm, Oral, Daily, Refills(s) 0, Constipation Start Date: 01/13/23 Status: Ordered Start: 01-13-2023 Metamucil Oral , Daily, Refills(s) 0 Start Date: 01/13/23 Status: Ordered Start: 01-13-2023 Metamucil Oral , Refills(s) 0 Start Date: 01/13/23 Status: Ordered psyllium (Metamu cil) 0.52 g capsule Take 0.52 g by mouth. Active risedronate sodium 35 mg oral tablet (1 source) Start: 08-03-2023 take 1 tablet by mouth every week Actonel 35 mg oral tablet 35 mg = 1 tab(s), Oral, qWeek, # 12 tab(s), Refills(s) 3, Pharmacy: [facility]/pharmacy #[id number], 162, cm, 08/03/23 9:39:00 EST, Height/Length Dosing, 84.7, kg, 08/03/23 9:39:00 EST, Weight Dosing Start Date: 08/03/23 Status: Ordered 5 ml sodium chloride 9 mg/ml injection (3 sources) Start: 07-23-2022 0.9 % sodium c hloride infusion Start: 07-23-2022 sodium chlorid e flush 0.9 % injection 5-40 mL sucralfate 1000 mg oral tablet (2 sources) Aluminum Complex take 1 tablet by mouth four times daily Sucralfate 1 GM TAKE 1 TABLET BY MOUTH FOUR TIMES A DAY Oral for 30 Active Vitamin B-1 (2 sources) Vitamin B-1 Acti ve Vitamin B12 1000 mcg Tab (1 source) Start: 10-26-2024 take 1 tablet by mouth once daily Vitamin B12 1000 mcg Tab 1,000 mcg = 1 tab(s), Oral, Daily Start Date: 10/26/24 Status: Ordered Repeat number: 1 Vitamin D 1000 UNIT (2 sources) take 1 tablet by mouth once daily Vitamin D 1000 UNIT 1 tablet Orally Once a day Active Vitamin D3 1000 intl units (25 mcg) Tab (20 sources) Start: 06-01-2023 take 1 tablet by mouth once daily Vitamin D3 1000 intl units (25 mcg) Tab 25 mcg = 1 tab(s), Oral, Daily Start Date: 06/01/23 Status: Ordered Repeat number: 1 Start: 06-01-2023 take 1 tablet by mouth once da kevan Vitamin D3 1000 intl units (25 mcg) Tab 25 mcg = 1 tab(s), Oral, Daily Start Date: 06/01/23 Status: Ordered Completed/Discontinued Medications Medication Drug Class(es) Dates Sig (Normalized) Sig (Original) acetaminophen 325 mg / oxyCODONE hydrochloride 5 mg oral tablet (20 sources) Opioid Agonist Start: 07-17-2020 End: 08-08-2024 take 1 tablet by mouth every six hours as needed for pain Oxycodone-Acetamino phen 5-325 mg Tablet Discontinued 1 TAB PO Q6H as needed for pain 7-10 28 July 17, 2020 August 08, 2024 3:14pm Start: 07-10-2020 End: 07-17-2020 take 1 tablet by mouth every four to six hours as needed for pain Oxycodone-Acetaminophen (Percocet) 5-325 mg tablet Discontinued 1 - 2 TAB PO EVERY 4-6 HOURS as needed for pain 40 7 July 10, 2020 July 17, 2020 12:31pm calcium chloride 0.0014 meq/ml / potassium chloride 0.004 meq/ml / sodium chloride 0.103 meq/ml / sodium lactate 0.028 meq/ml injectable solution (1 source) Start: 07-23-2022 End: 07-23-2022 lactated ringers infusion ceFAZolin 2000 mg in 20 mL SWFI IV Syringe IV syringe (1 source) Start: 07-23-2022 End: 07-23-2022 ceFAZolin 2000 mg in 20 mL SWFI IV Syringe IV syringe cephalexin 500 mg oral capsule (10 sources) Cephalosporin Antibacterial Start: 03-15-2024 End: 05-30-2024 take 1 capsule by mouth twice daily cephalexin (Keflex) 500 MG capsule Indications: Impetigo Take 1 capsule, by mouth, bid, 10 days 20 capsule 03/15/2024 05/30/2024 Discontinued (Therapy completed) Start: 02-14-2023 End: 02-19-2023 take 1 capsule by mouth four times daily Keflex 500 mg Cap 500 mg = 1 cap(s), Oral, QID, X 5 day(s), # 20 cap(s), Refills(s) 0, Pharmacy: [facility]/pharmacy #[id number], 160, cm, 02/14/23 10:51:00 EDT, Height/Length Dosing, 85.1, kg, 02/14/23 10:51:00 EDT, Weight Dosing Start Date: 02/14/23 Stop Date: 02/19/23 Status: Ordered cholecalciferol 0.025 mg oral capsule (20 sources) Vitamin D Start: 08-24-2017 End: 07-17-2020 take 1 capsule by mouth once daily Cholecalciferol (Vitamin D3) (Vitamin D3) 1,000 unit Capsule Discontinued 1000 UNITS PO Daily August 24, 2017 1:00am July 17, 2020 12:31pm take 1 tablet by mouth in the mo rning cholecalciferol (D3-5) 5,000 Units tablet Take 5,000 Units by mouth in the morning. Active docusate sodium 100 mg oral capsule (17 sources) Start: 07-10-2020 End: 07-17-2020 take 1 capsule by mouth twice daily Docusate Sodium (Dok) 100 mg Capsule Discontinued 100 MG PO Twice daily 0 July 10, 2020 1:00am July 17, 2020 12:31pm 4 ml furosemide 10 mg/ml injection (1 source) Loop Diuretic Start: 07-23-2022 End: 07-23-2022 furosemide (LASIX) injection 10 mg hyaluronate (18 sources) Start: 03-16-2017 Euflexxa 21 Au g, 2016 2 mL Start: 03-09-2017 Euflexxa 14 Au g, 2016 2 mL Start: 03-02-2017 Euflexxa 07 Au g, 2016 2 mL hydrOXYzine pamoate 50 mg oral capsule (20 sources) Antihistamine Start: 07-10-2020 End: 07-17-2020 take 1 capsule by mouth every three hours as needed for muscle spasms Hydroxyzine Pamoate 25 mg Capsule Discontinued 25 MG PO Q3H as needed for Muscle Spasm 0 July 10, 2020 1:00am July 17, 2020 12:31pm Start: 07-10-2020 End: 07-17-2020 take 1 capsule by mouth every three hours as needed for muscle spasms Hydroxyzine Pamoate 50 mg Capsule Discontinued 50 MG PO Q3H as needed for Muscle Spasm 0 July 10, 2020 1:00am July 17, 2020 12:31pm Hymovis (9 sources) Start: 05-17-2020 Hymovis Apr 24 mg Start: 05-09-2020 Hymovis Apr 24 mg 50 ml magnesium sulfate 40 mg/ml injection (2 sources) Start: 07-23-2022 End: 07-24-2022 magnesium sulfate 2000 mg in 50 mL IVPB premix metoprolol 1 mg/mL Inj (1 source) Start: 10-02-2023 End: 10-02-2023 inject 2.5 mg intravenously once metoprolol 1 mg/mL Inj 2.5 mg = 2.5 mL, Injection, IV Push, Once, Stop date 10/02/23 11:27:23 AM EST, Routine, Start date 10/02/23 11:00:00 AM EST, Hold for sbp 110 or less, 10/02/23 10:45:00 EST Start Date: 10/02/23 Stop Date: 10/02/23 Status: Completed mometasone furoate 1 mg/ml topical cream (20 sources) Corticosteroid Start: 10-02-2023 apply 15 g topically once mometasone Top 0.1% Crm 15 gram See Instructions, Refill(s) 0, APPLY POST RADIATION 1X A DAY Start Date: 10/02/23 Status: Ordered Start: 05-28-2023 mometasone (El cynthia) 0.1 % cream APPLY TO RADIATION SITE ONCE A DAY AFTER RADIATION TREATMENTS 05/28/2023 Active Start: 05-28-2023 End: 10-12-2024 Mometasone 0.1 % Cream Disco ntinued 1 APPLIC TOPICAL Daily 60 May 28, 2023 12:00am October 12, 2024 9:18am Apply to radiation site, once a day, AFTER radiation treatments. Multivitamin With Folic Acid (Thera) 400 mcg Tablet (17 sources) Start: 07-17-2020 End: 10-12-2024 take 1 tablet by mouth once daily Multivitamin With Folic Acid (Thera) 400 mcg Tablet Discontinued 1 TAB PO Daily July 17, 2020 1:00am October 12, 2024 9:19am Start: 07-17-2020 take 1 tablet by koffi once daily Multivitamin With Folic Acid (Thera) 400 mcg Tablet Active 1 TAB PO Daily July 17, 2020 12:00am Start: 07-17-2020 take 1 tablet by koffi th once daily Multivitamin With Folic Acid (Thera) 400 mcg Tablet Active 1 TAB PO Daily July 17, 2020 1:00am naproxen 500 mg oral tablet (20 sources) Nonsteroidal Anti-inflammatory Drug Start: 05-25-2023 End: 08-08-2024 Naproxen 500 mg Tablet Discontinued MG May 25, 2023 12:00am August 08, 2024 3:14pm Start: 05-25-2023 Naproxen Activ e MG TABLET May 25, 2023 12:00am Start: 12-18-2022 take 2 tablets by mo [facility] twice daily as needed for pain naproxen 250 mg Tab 500 mg = 2 tab(s), Oral, BID, PRN as needed for pain Start Date: 12/18/22 Status: Ordered Start: 12-05-2021 take 1 tablet by koffi th twice daily as needed for pain naproxen 500 mg Tab 500 mg = 1 tab(s), Oral, BID, PRN for pain, # 60 tab(s), Refills(s) 1, Pharmacy: [facility]/pharmacy #[id number], 165, cm, 12/05/21 11:48:00 EDT, Height/Length Dosing, 88, kg, 12/05/21 11:48:00 EDT, Weight Dosing Start Date: 12/05/21 Status: Ordered Start: 11-24-2021 take 1 tablet by koffi th twice daily as needed for pain naproxen 500 mg Tab 500 mg = 1 tab(s), Oral, BID, PRN for pain, # 20 tab(s), Refills(s) 0, Pharmacy: [facility]/pharmacy #[id number], 165, cm, 11/24/21 8:54:00 EDT, Height/Length Dosing, 92.1, kg, 11/24/21 8:54:00 EDT, Weight Dosing Start Date: 11/24/21 Status: Ordered take 1 tablet by koffi th in the morning naproxen sodium (Aleve) 220 MG tablet Take 220 mg by mouth in the morning and 220 mg in the evening. Take with meals. Active take 1 tablet by koffi th every twelve hours Naproxen 250 MG 1 tablet with food or milk Orally Twice a day Active 24 hr oxybutynin chloride 5 mg extended release oral tablet (20 sources) Cholinergic Muscarinic Antagonist Start: 10-28-2022 End: 05-30-2024 take 1 tablet by mouth every twenty-four hours in the morning oxybutynin XL (Ditropan-XL) 5 MG 24 hr tablet Take 5 mg by mouth in the morning. 10/28/2022 05/30/2024 Discontinued (Therapy completed) Start: 08-08-2022 take 1 tablet by koffi th once daily oxybutynin 5 mg ER Tab 5 mg = 1 tab(s), Oral, Daily, # 30 tab(s), Refills(s) 0, Pharmacy: [facility]/pharmacy #[id number], 165, cm, 10/27/22 14:19:00 EDT, Height/Length Dosing, 83, kg, 10/27/22 14:19:00 EDT, Weight Dosing Start Date: 10/28/22 Status: Ordered phenazopyridine hydrochloride 200 mg delayed release oral tablet (13 sources) Start: 09-18-2022 End: 05-30-2024 take 1 tablet by mouth three times daily as needed phenazopyridine (Pyridium) 200 MG tablet Take 200 mg by mouth 3 (three) times a day as needed. 09/18/2022 05/30/2024 Discontinued (Therapy completed) Start: 09-18-2022 take 1 tablet by koffi th three times daily as needed phenazopyridine 200 mg Tab 200 mg = 1 tab(s), Oral, TID, prn, # 6 tab(s), Refills(s) 0, Pharmacy: [facility]/pharmacy #[id number], 162, cm, 09/18/22 11:55:00 EST, Height/Length Dosing, 84.9, kg, 09/18/22 11:55:00 EST, Weight Dosing Start Date: 09/18/22 Status: Ordered microencapsulated potassium chloride 20 meq extended release oral tablet (2 sources) Start: 07-24-2022 End: 07-24-2022 potassium chloride (KLOR-CON M) extended release tablet 40 mEq Start: 07-23-2022 potassium chlo ride (KLOR-CON M) extended release tablet 40 mEq raNITIdine 75 mg oral tablet (20 sources) Histamine-2 Receptor Antagonist Start: 04-29-2017 End: 06-25-2020 take 1 tablet by mouth twice daily as needed Ranitidine Hcl 75 mg Tablet Discontinued 1 TAB PO Twice daily as needed for Acid Reflux April 29, 2017 12:00am June 25, 2020 3:00pm End: 05-30-2024 take 1 capsule by mouth in the morning raNITIdine (Zantac) 150 MG capsule Take 150 mg by mouth in the morning and 150 mg in the evening. 05/30/2024 Discontinued (Therapy completed) sulfamethoxazole 800 mg / trimethoprim 160 mg oral tablet (18 sources) Dihydrofolate Reductase Inhibitor Antibacterial, Sulfonamide Antimicrobial Start: 09-18-2022 End: 05-30-2024 take 1 tablet by mouth once in the morning, then take 1 tablet by mouth once at bedtime sulfamethoxazole-trimethoprim (Bactrim DS) 800-160 MG per tablet Take 1 tablet by mouth in the morning and 1 tablet before bedtime. 09/18/2022 05/30/2024 Discontinued (Therapy completed) Start: 09-18-2022 End: 09-23-2022 Bactrim D.S. 800 mg-160 mg T ab 1 tab(s), Oral, BID for 5 day(s), 10 tab(s), Refill(s) 0, [id number], 162, cm, 09/18/22 11:55:00 EST, Height/Length Dosing, 84.9, kg, 09/18/22 11:55:00 EST, Weight Dosing Start Date: 09/18/22 Stop Date: 09/23/22 Status: Ordered Start: 05-19-2022 Bactrim DS 800 mg-160 mg Tab 1 tab(s), Oral, BID, 14 tab(s), Refill(s) 1, [id number], 162.9, cm, 05/19/22 10:38:00 EDT, Height/Length Dosing, 87.9, kg, 05/19/22 10:38:00 EDT, Weight Dosing Start Date: 05/19/22 Status: Ordered Start: 05-19-2022 Bactrim DS 800 mg-160 mg Tab 1 tab(s), Oral, BID, 14 tab(s), Refill(s) 1, [id number], 162.9, cm, 05/19/22 10:38:00 EDT, Height/Length Dosing, 87.9, kg, 05/19/22 10:38:00 EDT, Weight Dosing Start Date: 05/19/22 Status: Ordered Start: 03-26-2022 End: 03-31-2022 Bactrim DS 800 mg-160 mg Tab 1 tab(s), Oral, BID for 5 day(s), 10 tab(s), Refill(s) 0, [id number], 162, cm, 03/26/22 12:16:00 EDT, Height/Length Dosing, 87, kg, 03/26/22 12:16:00 EDT, Weight Dosing Start Date: 03/26/22 Stop Date: 03/31/22 Status: Ordered tamsulosin hydrochloride 0.4 mg oral capsule (11 sources) alpha-Adrenergic Dawood Start: 09-05-2022 End: 05-30-2024 take 1 capsule by mouth every twenty-four hours in the morning tamsulosin (Flomax) 0.4 MG 24 hr capsule Take 0.4 mg by mouth in the morning. 09/05/2022 05/30/2024 Discontinued (Therapy completed) Start: 08-08-2022 take 1 capsule by mo uth once daily tamsulosin (FLOMAX) 0.4 MG capsule Take 1 capsule by mouth daily 30 capsule 0 08/08/2022 Active Triamcinolone (18 sources) Corticosteroid Start: 01-25-2019 Kenalog -40 mg Jan, 40 mg Start: 01-12-2018 Kenalog -40 mg Dec, 10 mg Start: 09-30-2016 Kenalog -40 mg Sep, 3 mL Tylenol 8 Hour Arthritis Pain (5 sources) Tylenol 8 Hour A rthritis Pain Not-Taking Vitamin D 1000 intl units Tab (20 sources) Start: 07-22-2018 take 1 tablet by mouth once daily Vitamin D 1000 intl units Tab 1,000 International_Unit = 1 tab(s), Oral, Daily, Prophylaxis Start Date: 07/22/18 Status: Ordered vitamin e 100 unt oral tablet (20 sources) Start: 09-19-2021 take 1 tablet by mouth once daily vitamin E 100 intl units oral tablet 100 International_Unit = 1 tab(s), Oral, Daily, Refills(s) 0 Start Date: 09/19/21 Status: Ordered Vitamin E Active Problems Active Problems Problem Classification Problem Date Documented Da te Episodic/Chronic Abdominal pain (3 sources) Upper abdominal pain, unspecified; Translations: [UPPER ABDOMINAL PAIN, UNSPECIFIED] Onset: 2 Episodic Acute bronchitis (1 source) Acute bronchitis; Translations: [Acute bronchitis, unspecified] Onset: 4 Episodic Administrative/social admission (17 sources) Other reduced mobility; Translations: [Impaired mobility and activities of daily living] 07-11-2020 Episodic Calculus of urinary tract (20 sources) Kidney stone; Translations: [Calculus of kidney] Onset: 2 Episodic Cancer of breast (20 sources) Malignant neoplasm of unspecified site of right female breast; Translations: [Infiltrating lobular carcinoma of right female breast] Onset: 3 Chronic Comment on above: right Cancer of breast (20 sources) History of malignant neoplasm of breast; Translations: [Personal history of malignant neoplasm of breast] Onset: 4 07-24-2023 Episodic Cardiac dysrhythmias (5 sources) Paroxysmal tachycardia; Translations: [Paroxysmal tachycardia, unspecified] Onset: 2 Chronic Cardiac dysrhythmias (20 sources) Palpitations; Translations: [Palpitations] Onset: 4 Episodic Cataract (13 sources) Bilateral age-related nuclear cataracts; Translations: [Age-related nuclear cataract, bilateral] Onset: 4 12-03-2023 Chronic Chronic kidney disease (20 sources) Chronic kidney disease stage 2; Translations: [Chronic kidney disease stage 3] Onset: 2 09-19-2021 Chronic Chronic ulcer of skin (2 sources) Superficial skin ulcer of lower limb; Translations: [Non-pressure chronic ulcer of unspecified part of right lower leg limited to breakdown of skin] 05-30-2024 Chronic Coagulation and hemorrhagic disorders (1 source) Thrombocytopenic disorder; Translations: [Thrombocytopenia, unspecified] Onset: 4 Chronic Conditions associated with dizziness or vertigo (1 source) Vertigo Onset: 8 Episodic Developmental disorders (13 sources) Word finding difficulty 09-18-2022 Chronic Diabetes mellitus without complication (20 sources) Hyperglycemia; Translations: [Hyperglycemia, unspecified] Onset: 2 09-17-2020 Episodic Diseases of white blood cells (17 sources) Leukocytosis; Translations: [Elevated white blood cell count, unspecified] 07-11-2020 Chronic Disorders of lipid metabolism (20 sources) Hyperlipidemia; Translations: [Hyperlipidemia, unspecified] Onset: 2 09-17-2020 Chronic Esophageal disorders (20 sources) Gastroesophageal reflux disease; Translations: [Gastroesophageal reflux disease without esophagitis] Onset: 3 06-29-2020 Chronic Essential hypertension (20 sources) Hypertensive disorder; Translations: [Essential hypertension] Onset: 2 09-17-2020 Chronic Comment on above: Linked per outpatien t [facility] policy. Fluid and electrolyte disorders (20 sources) Hypokalemia; Translations: [Dehydration] Onset: 4 09-17-2020 Episodic Gastroduodenal ulcer (except hemorrhage) (17 sources) Gastric ulcer; Translations: [Gastric ulcer, unspecified as acute or chronic, without hemorrhage or perforation] 07-11-2020 Chronic Gastroduodenal ulcer (except hemorrhage) (20 sources) H/O: peptic ulcer; Translations: [Personal history of peptic ulcer disease] Onset: 3 Episodic Genitourinary symptoms and ill-defined conditions (20 sources) Urge incontinence; Translations: [Urge incontinence of urine] Onset: 3 Chronic Genitourinary symptoms and ill-defined conditions (20 sources) Personal history of urinary (tract) infections; Translations: [Nocturia] Onset: 2 Episodic Heart valve disorders (20 sources) Heart murmur 09-13-2019 Episodic Hypertension with complications and secondary hypertension (2 sources) Chronic kidney disease due to hypertension; Translations: [Hypertensive chronic kidney disease with stage 1 through stage 4 chronic kidney disease, or unspecified chronic kidney disease] Onset: 4 Chronic Immunizations and screening for infectious disease (1 source) Vaccination given; Translations: [Encounter for immunization] Onset: 4 Episodic Influenza (2 sources) Influenza; Translations: [Influenza due to other identified influenza virus with other respiratory manifestations] Onset: 4 Episodic Malaise and fatigue (1 source) Asthenia; Translations: [Weakness] Onset: 4 Episodic Menopausal disorders (5 sources) Menopause ovarian failure 01-14-2024 Chronic Miscellaneous mental health disorders (13 sources) Confusional state 09-18-2022 Chronic Neoplasms of unspecified nature or uncertain behavior (1 source) Monoclonal gammopathy (clinical); Translations: [Monoclonal gammopathy] Onset: 5 Chronic Neoplasms of unspecified nature or uncertain behavior (2 sources) Neoplastic disease; Translations: [Neoplasm of unspecified behavior of bone, soft tissue, and skin] 07-12-2024 Episodic Nutritional deficiencies (20 sources) Vitamin D deficiency; Translations: [Vitamin D deficiency, unspecified] Onset: 2 09-17-2020 Chronic Open wounds of extremities (1 source) Open wound of lower leg; Translations: [Unspecified open wound, unspecified lower leg, initial encounter] Onset: 4 Episodic Osteoarthritis (20 sources) Bilateral osteoarthritis of knees; Translations: [Osteoarthritis of knee] Onset: 3 07-30-2020 Chronic Other acquired deformities (10 sources) Lumbar spondylolisthesis; Translations: [Spondylolisthesis, lumbar region] Episodic Other aftercare (5 sources) Surgical follow-up; Translations: [Encounter for removal of sutures] Episodic Other aftercare (1 source) nursing home (current) use of aspirin; Translations: [MEDICAL AIDE CURRENT USE OF ASPIRIN] Onset: 2 Episodic Other aftercare (1 source) Other intermediate manager (current) drug therapy; Translations: [OTH MEDICAL AIDE CURRENT DRUG THERAPY] Onset: 2 Episodic Other aftercare (4 sources) Follow-up status; Translations: [Encounter for follow-up examination after completed treatment for malignant neoplasm] Onset: 4 Episodic Other and unspecified benign neoplasm (20 sources) History of polyp of colon; Translations: [Personal history of colonic polyps] Onset: 2 Episodic Other bone disease and musculoskeletal deformities (20 sources) Osteopenia 12-09-2018 Episodic Other bone disease and musculoskeletal deformities (2 sources) Disorder of bone; Translations: [Other specified disorders of bone density and structure, unspecified site] Onset: 2 Episodic Other circulatory disease (20 sources) 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 Other circulatory disease (3 sources) Stricture of artery; Translations: [Stricture of artery] Onset: 3 Chronic Other connective tissue disease (20 sources) History of total knee arthroplasty; Translations: [Presence of artificial knee joint, bilateral] 07-10-2020 Chronic Other connective tissue disease (3 sources) Presence of artificial knee joint, bilateral Onset: 1 Resolved: 1 Chronic Other connective tissue disease (2 sources) History of bilateral total knee replacement; Translations: [Presence of artificial knee joint, bilateral] Chronic Other connective tissue disease (1 source) Pain in right lower limb; Translations: [Pain in right leg] Episodic Other diseases of kidney and ureters (1 source) Obstruction of ureter; Translations: [Crossing vessel and stricture of ureter without hydronephrosis] Episodic Other diseases of kidney and ureters (1 source) Crossing vessel and stricture of ureter without hydronephrosis; Translations: [Crossing vessel and stricture of ureter without hydronephrosis] Onset: 2 Episodic Other gastrointestinal disorders (7 sources) Alteration in bowel elimination 05-19-2022 Episodic Other gastrointestinal disorders (1 source) Altered bowel function; Translations: [Change in bowel habit] Onset: 2 Episodic Other gastrointestinal disorders (20 sources) Incontinence of feces; Translations: [Full incontinence of feces] Onset: 2 Episodic Other gastrointestinal disorders (9 sources) Digestive system finding; Translations: [Other specified symptoms and signs involving the digestive system and abdomen] Onset: 3 Episodic Other gastrointestinal disorders (20 sources) Irregular bowel habits 09-24-2022 Episodic Other gastrointestinal disorders (17 sources) Diarrhea; Translations: [Diarrhea, unspecified] 07-11-2020 Episodic Other gastrointestinal disorders (20 sources) Abnormal defecation 07-15-2023 Episodic Other gastrointestinal disorders (20 sources) Dysphagia 07-15-2023 Episodic Other gastrointestinal disorders (5 sources) Constipation by outlet obstruction; Translations: [Outlet dysfunction constipation] Onset: 4 Episodic Other liver diseases (2 sources) Enzyme level - finding; Translations: [Abnormal levels of other serum enzymes] Onset: 3 Episodic Other liver diseases (20 sources) Alkaline phosphatase raised 04-14-2023 Episodic Other lower respiratory disease (1 source) Unspecified acute lower respiratory infection Episodic Other lower respiratory disease (17 sources) Hypoxia; Translations: [Hypoxemia] 07-11-2020 Episodic Other nervous system disorders (19 sources) Chronic pain; Translations: [Other chronic pain] Onset: 2 Chronic Other nervous system disorders (20 sources) Other chronic pain; Translations: [Other chronic pain] Onset: 5 10-03-2024 Chronic Other nervous system disorders (1 source) Other acute postprocedural pain; Translations: [Other acute postprocedural pain] Onset: 3 Episodic Other nervous system disorders (2 sources) Disturbance in speech; Translations: [Other speech disturbances] Onset: 3 Episodic Other nervous system disorders (17 sources) Postoperative pain ; Translations: [Other acute postprocedural pain] 07-11-2020 Episodic Other nervous system disorders (20 sources) Unsteady when standing 10-15-2023 Episodic Other nervous system disorders (1 source) Incoordination; Translations: [Unspecified lack of coordination] Episodic Other non-traumatic joint disorders (10 sources) Knee pain; Translations: [Pain in left knee] Episodic Other non-traumatic joint disorders (5 sources) Pain in right hip joint; Translations: [Pain in right hip] Episodic Other nutritional; endocrine; and metabolic disorders (20 sources) Body mass index 30+ - obesity 07-30-2020 Chronic Other nutritional; endocrine; and metabolic disorders (20 sources) Obesity; Translations: [Other obesity] Onset: 2 Chronic Other nutritional; endocrine; and metabolic disorders (1 source) Obese class II; Translations: [Body mass index (BMI) 35.0-35.9, adult] Onset: 2 Chronic Other nutritional; endocrine; and metabolic disorders (15 sources) Obese class I; Translations: [Body mass index (BMI) 33.0-33.9, adult] Onset: 2 Chronic Other nutritional; endocrine; and metabolic disorders (3 sources) Disorder of protein metabolism; Translations: [Other disorders of plasma-protein metabolism, not elsewhere classified] Onset: 3 Chronic Other nutritional; endocrine; and metabolic disorders (20 sources) Hyperproteinemia 10-21-2022 Chronic Other nutritional; endocrine; and metabolic disorders (2 sources) Adult-onset obesity; Translations: [Other obesity not elsewhere classified] Onset: 4 Chronic Other screening for suspected conditions (not mental disorders or infectious disease) (20 sources) Procedure carried out on subject; Translations: [Encounter for screening for other disorder] Onset: 2 Episodic Other skin disorders (2 sources) Disorder of skin; Translations: [Disorder of the skin and subcutaneous tissue, unspecified] Onset: 4 Episodic Other skin disorders (20 sources) Mass of skin of right lower limb 02-29-2024 Episodic Other upper respiratory disease (20 sources) Hoarse 07-30-2020 Episodic Prolapse of female genital organs (20 sources) Cystocele; Translations: [Cystocele, unspecified] Onset: 3 Chronic Residual codes; unclassified (20 sources) Amnesia; Translations: [Other amnesia] Onset: 2 05-11-2019 Episodic Residual codes; unclassified (20 sources) Chronic back pain 05-21-2020 Episodic Residual codes; unclassified (20 sources) Swelling - edema - symptom 02-06-2020 Episodic Residual codes; unclassified (2 sources) Disorientated; Translations: [Disorientation, unspecified] Onset: 3 Episodic Residual codes; unclassified (17 sources) Patient encounter status; Translations: [Encounter for prophylactic measures, unspecified] 07-11-2020 Episodic Residual codes; unclassified (1 source) Menopause present; Translations: [Asymptomatic menopausal state] Onset: 4 Episodic Residual codes; unclassified (1 source) Edema; Translations: [Edema, unspecified] Onset: 4 Episodic Respiratory failure; insufficiency; arrest (adult) (2 sources) Acute respiratory failure; Translations: [Acute respiratory failure with hypoxia] Onset: 4 Episodic Retinal detachments; defects; vascular occlusion; and retinopathy (20 sources) Degenerative disorder of macula ; Translations: [Age related macular degeneration] Onset: 2 05-21-2020 Chronic Spondylosis; intervertebral disc disorders; other back problems (20 sources) Spondylosis; Translations: [Other spondylosis, lumbar region] Onset: 2 Resolved: 2 Chronic Spondylosis; intervertebral disc disorders; other back problems (20 sources) Spinal stenosis; Translations: [Low back pain] Onset: 2 Resolved: 2 02-09-2014 Episodic Unclassified (1 source) Unknown / UNK(Unknown) Onset: 8 Unclassified (20 sources) Long-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 Onset: 2 02-06-2022 Comment on above: Added secondary to c urrent Opioid Treatment Agreement Unclassified (1 source) CONTACT W/AND (SUSP) EXPOS COVID-19; Translations: [CONTACT W/AND (SUSP) EXPOS COVID-19] Onset: 2 Unclassified (5 sources) Patient encounter status 01-14-2024 Unclassified (1 source) Injury of right leg 10-26-2024 Urinary tract infections (20 sources) Urinary tract infectious disease; Translations: [Urinary tract infection, site not specified] Onset: 2 Episodic Past or Other Problems Problem Classification Problem Date Documented Date Episodic/Chronic Other acquired deformities (1 source) Spondylolisthesis, lumbar region Onset: 07-09-2021 Resolved: 07-09-2021 Episodic Other connective tissue disease (1 source) Other bursitis of knee, left knee Onset: 07-09-2021 Resolved: 07-09-2021 Episodic Other diseases of veins and lymphatics (2 sources) Disorder of vein of lower extremity; Translations: [Venous insufficiency (chronic) (peripheral)] 03-29-2024 Episodic Other inflammatory condition of skin (2 sources) Intertrigo; Translations: [Erythema intertrigo] 03-29-2024 Episodic Other non-traumatic joint disorders (2 sources) Pain in left knee Onset: 09-03-2021 Resolved: 09-03-2021 Episodic Skin and subcutaneous tissue infections (4 sources) Impetigo; Translations: [Impetigo, unspecified] 03-15-2024 Episodic Unclassified (5 sources) Wound finding; Translations: [Visit for wound check] Unclassified (1 source) Cough R05.9 Results Test Name Value Interpretation Reference Range [facility] 02-16 IgA Quant Duplicate Invalid Interpretation Code [facility] Comment on above: Performed By: #### 1 [id number] #### [facility] [address] [place] [address] IgG Quant Duplicate Invalid Interpretation Code [facility] Comment on above: Performed By: #### 1 [id number] #### [facility] [address] [place] [address] IgM Quant Duplicate Invalid Interpretation Code [facility] Comment on above: Performed By: #### 1 [id number] #### [facility] [address] [place] [address] Free K+L Lt Chains,Qn,Son Free Briggs Lt Chains,S 78.6 mg/L High 3.3-19.4 [facility] Comment on above: Performed By: #### 2 [id number] #### [facility] [address] [place] [address] Free Lambda Lt Chains,S 42.1 mg/L High 5.7-26.3 [facility] Comment on above: Performed By: #### 2 [id number] #### [facility] [address] [place] [address] Briggs/Lambda Ratio,S 1.87 High 0.26-1.65 [facility] Comment on above: Result Comment: Perf ormed at: [facility] [address] [place], [place] [id number] PhD Daniel Potter Performed By: #### 2 [id number] #### [facility] [address] [place] [address] YAJAIRA and PE, Serumon 02-15-20 25 Albumin [Mass/Vol] 3.2 g/dL Invalid Interpretation Code 2.9-4.4 [facility] Comment on above: Performed By: #### 1 [id number] #### [facility] [address] [place] [address] Albumin/Globulin [Mass ratio] 0.9 {ratio} Invalid Interpretation Code 0.7-1.7 [facility] Comment on above: Performed By: #### 1 [id number] #### [facility] [address] [place] [address] Alpha 1 Glob 0.3 gm/dL Invalid Interpretation Code 0.0-0.4 [facility] Comment on above: Performed By: #### 1 [id number] #### [facility] [address] [place] [address] Alpha 2 Glob 1.0 gm/dL Invalid Interpretation Code 0.4-1.0 [facility] Comment on above: Performed By: #### 1 [id number] #### [facility] [address] [place] [address] Beta Glob 1.2 gm/dL Invalid Interpretation Code 0.7-1.3 [facility] Comment on above: Performed By: #### 1 [id number] #### [facility] [address] [place] [address] Gamma Glob 1.4 gm/dL Invalid Interpretation Code 0.4-1.8 [facility] Comment on above: Performed By: #### 1 [id number] #### [facility] [address] [place] [address] Globulin (S) [Mass/Vol] 4.0 g/dL High 2.2-3.9 [facility] Comment on above: Performed By: #### 1 [id number] #### [facility] [address] [place] [address] IgA Quant 526 mg/dL High 64-422 [facility] Comment on above: Performed By: #### 1 [id number] #### [facility] [address] [place] [address] IgG Quant 1393 mg/dL Invalid Interpretation Code 586-1602 [facility] Comment on above: Performed By: #### 1 [id number] #### [facility] [address] [place] [address] IgM Quant 56 mg/dL Invalid Interpretation Code 26-217 [facility] Comment on above: Performed By: #### 1 [id number] #### [facility] [address] [place] [address] Immunofix. 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 PLEASE NOTE: Samples from patients receiving DARZALEX(R) (daratumumab) or SARCLISA(R)(isatuximab-irfc) treatment can appear as an IgG kappa and mask a complete response (CR). If this patient is receiving these therapies, this YAJAIRA assay interference can be removed by ordering test number [id number] Immunofixation, Daratumumab-Specific, Serum or [id number]- Immunofixation, Isatuximab-Specific, Serum and submitting a new sample for testing or by calling the lab to add this test to the current sample. Performed By: #### 1 [id number] #### [facility] [address] [place] [address] M-Fuad 0.5 gm/dL High Not Observed [facility] Comment on above: Performed By: #### 1 [id number] #### [facility] [address] [place] [address] Note Comment Invalid Interpretation Code [facility] Comment on above: Result Comment: Prot ein electrophoresis scan will follow via computer, mail, or newscast director delivery. Performed at: [facility] [address] [id number] PhD Daniel Potter Performed By: #### 1 [id number] #### [facility] [address] [place] [address] Protein [Mass/Vol] 7.2 g/dL Invalid Interpretation Code 6.0-8.5 [facility] Comment on above: Performed By: #### 1 [id number] #### [facility] [address] [place] [address] Immunoglobs. A/E/G/Mon 02-14 IgE Quant 337 International_Unit/mL Invali d Interpretation Code 6-495 [facility] Comment on above: Result Comment: Perf ormed at: [facility] [address] [id number] MD Sunny Brown Performed By: #### 1 [id number] #### [facility] [address] [place] [address] CBC w/ Auto Diffon 5 Basophil Absolute 0.1 E9/L Normal 0.0-0.2 [facility] Comment on above: Performed By: #### 2 [id number] #### [facility] [address] [place] [address] Basophils/100 WBC (Bld) 0.6 % Normal 0.0-2.0 [facility] Comment on above: Performed By: #### 2 [id number] #### [facility] [address] [place] [address] Eos Absolute 0.6 E9/L High 0.0-0.5 [facility] Comment on above: Performed By: #### 2 [id number] #### [facility] [address] [place] [address] Eosinophils/100 WBC (Bld) 6.7 % Normal 0.0-8.0 [facility] Comment on above: Performed By: #### 2 [id number] #### [facility] [address] [place] [address] Erythrocyte distribution width (RBC) [Ratio] 14.6 % High 10.9-14.2 [facility] Comment on above: Performed By: #### 2 [id number] #### [facility] [address] [place] [address] Hematocrit (Bld) [Volume fraction] 39.6 % Normal 34.0-46.0 [facility] Comment on above: Performed By: #### 2 [id number] #### [facility] [address] [place] [address] Hemoglobin (Bld) [Mass/Vol] 13.2 g/dL Normal 12.0-16.0 [facility] Comment on above: Performed By: #### 2 [id number] #### [facility] [address] [place] [address] Lymph Absolute 2.2 E9/L Normal 1.0-4.0 [facility] Comment on above: Performed By: #### 2 [id number] #### [facility] [address] [place] [address] Lymphocytes/100 WBC (Bld) 25.3 % Normal 14.0-50.0 [facility] Comment on above: Performed By: #### 2 [id number] #### [facility] [address] [place] [address] MCH (RBC) [Entitic mass] 28.4 pg Normal 27.0-34.0 [facility] Comment on above: Performed By: #### 2 [id number] #### [facility] [address] [place] [address] MCHC (RBC) [Mass/Vol] 33.2 g/dL Normal 31.4-36.0 [facility] Comment on above: Performed By: #### 2 [id number] #### [facility] [address] [place] [address] MCV (RBC) [Entitic vol] 85.6 fL Normal 80.0-100.0 [facility] Comment on above: Performed By: #### 2 [id number] #### [facility] [address] [place] [address] [place] Absolute 0.9 E9/L Normal 0.2-1.0 [facility] Comment on above: Performed By: #### 2 [id number] #### [facility] [address] [place] [address] Monocytes/100 WBC (Bld) 10.5 % Normal 4.0-14.0 [facility] Comment on above: Performed By: #### 2 [id number] #### [facility] [address] [place] [address] Neutro Absolute 5.0 E9/L Normal 2.0-7.5 [facility] Comment on above: Performed By: #### 2 [id number] #### [facility] [address] [place] [address] Neutro Auto 56.9 % Normal 36.0-75.0 [facility] Comment on above: Performed By: #### 2 [id number] #### [facility] [address] [place] [address] Platelet 288.0 E9/L Normal 150.0-500. 0 [facility] Comment on above: Performed By: #### 2 [id number] #### [facility] [address] [place] [address] Platelet mean volume (Bld) [Entitic vol] 10.1 fL Normal 6.4-10.8 [facility] Comment on above: Performed By: #### 2 [id number] #### [facility] [address] [place] [address] RBC 4.6 E12/L Normal 4.3-5.9 [facility] Comment on above: Performed By: #### 2 [id number] #### [facility] [address] [place] [address] WBC 8.8 E9/L Normal 4.0-11.0 [facility] Comment on above: Performed By: #### 2 [id number] #### [facility] [address] [place] [address] CMPon 02-09-2025 Albumin [Mass/Vol] 3.8 g/dL Normal 3.3-5.0 [facility] Comment on above: Performed By: #### 2 [id number] #### [facility] [address] [place] [address] Albumin/Globulin [Mass ratio] 1.0 {ratio} Low 1.1-2.2 [facility] Comment on above: Performed By: #### 2 [id number] #### [facility] [address] [place] [address] Alk Phos 112 Int._Unit/L High 21-98 [facility] Comment on above: Performed By: #### 2 [id number] #### [facility] [address] [place] [address] ALT 11 Int._Unit/L Normal 6-46 [facility] Comment on above: Performed By: #### 2 [id number] #### [facility] [address] [place] [address] Anion gap [Moles/Vol] 12 mmol/L Normal 6-16 [facility] Comment on above: Performed By: #### 2 [id number] #### [facility] [address] [place] [address] AST 18 Int._Unit/L Normal 5-43 [facility] Comment on above: Performed By: #### 2 [id number] #### [facility] [address] [place] [address] Bili Total 0.6 mg/dL Normal 0.0-1.1 [facility] Comment on above: Performed By: #### 2 [id number] #### [facility] [address] [place] [address] BUN/Creat Ratio 21 No Units High 10-20 [facility] Comment on above: Performed By: #### 2 [id number] #### [facility] [address] [place] [address] Calcium [Mass/Vol] 9.4 mg/dL Normal 8.9-11.1 [facility] Comment on above: Performed By: #### 2 [id number] #### [facility] [address] [place] [address] Chloride [Moles/Vol] 103 mmol/L Normal 101-111 [facility] Comment on above: Performed By: #### 2 [id number] #### [facility] [address] [place] [address] CO2 [Moles/Vol] 27 mmol/L Normal 21-31 [facility] Comment on above: Performed By: #### 2 [id number] #### [facility] [address] [place] [address] Creatinine [Mass/Vol] 1.2 mg/dL Normal 0.5-1.3 [facility] Comment on above: Performed By: #### 2 [id number] #### [facility] [address] [place] [address] Globulin (S) [Mass/Vol] 3.9 g/dL Normal 1.4-4.0 [facility] Comment on above: Performed By: #### 2 [id number] #### [facility] [address] [place] [address] Glucose [Mass/Vol] 101 mg/dL Normal 55-199 [facility] Comment on above: Performed By: #### 2 [id number] #### [facility] [address] [place] [address] Potassium [Moles/Vol] 3.4 mmol/L Low 3.5-5.3 [facility] Comment on above: Performed By: #### 2 [id number] #### [facility] [address] [place] [address] Protein [Mass/Vol] 7.7 g/dL Normal 6.0-7.8 [facility] Comment on above: Performed By: #### 2 [id number] #### [facility] [address] [place] [address] Sodium [Moles/Vol] 139 mmol/L Normal 135-145 [facility] Comment on above: Performed By: #### 2 [id number] #### [facility] [address] [place] [address] Urea nitrogen [Mass/Vol] 25 mg/dL High 5-21 [facility] Comment on above: Performed By: #### 2 [id number] #### [facility] [address] [place] [address] [id number] 02-09-2025 HbA1c (Bld) [Mass fraction] 5.9 % Normal <=5.9 [facility] Comment on above: Performed By: #### 7 [id number] #### [facility] [address] [place] [address] Lipid Panelon 02-09-2025 Cholesterol [Mass/Vol] 168 mg/dL Normal 120-200 [facility] Comment on above: Performed By: #### 2 [id number] #### [facility] [address] [place] [address] Cholesterol in HDL [Mass/Vol] 37 mg/dL Invalid Interpretation Code [facility] Comment on above: Result Comment: '>= 60 LOW RISK' '<= 40 HIGH RISK' Performed By: #### 2 [id number] #### [facility] [address] [place] [address] Cholesterol in LDL [Mass/Vol] 119 mg/dL Normal <=129 [facility] Comment on above: Performed By: #### 2 [id number] #### [facility] [address] [place] [address] Cholesterol in VLDL [Mass/Vol] 20 mg/dL Normal 7-40 [facility] Comment on above: Performed By: #### 2 [id number] #### [facility] [address] [place] [address] Triglyceride [Mass/Vol] 101 mg/dL Normal <=149 [facility] Comment on above: Performed By: #### 2 [id number] #### [facility] [address] [place] [address] Vitamin D 25 Hydroxyon 02-09 Vitamin D 25 Hydroxy 37.7 ng/mL Normal 30.0-100.0 [facility] Comment on above: Performed By: #### 5 [id number] #### [facility] [address] [place] [address] eGFRon 02-09-2025 eGFR 43 mL/min/1.73 m2 Low >=59 [facility] Comment on above: Performed By: #### 1 [id number] #### [facility] [address] [place] [address] Heart and Vascular Office/Cl inic Noteon 01-25-2025 Heart and Vascular Office/Clinic Note Heart and Vascular Office/Clinic Note Chief Complaint 6 month follow up HTN tachycardia History of Present Illness Patient is a 89-year-old female with past medical history history of hypertension, CKD, history of heart murmur, hyperlipidemia, hypertension, history of tachycardia. Lexiscan stress test from 10/2023 came back negative for ischemia or infarction and was a low risk study. Echo from 10/2023 showed normal EF of 55-60%, proximal septal thickening noted, mild mitral valve sclerosis, mild tricuspid regurgitation. Patient comes in for 6-month follow-up today. Reviewed prior PVRs lower extremities, Holter monitor, echo, nuc med stress test. At last visit, I saw patient which time she was continue with current medications. Patient reports that she has been compliant with this metoprolol 50 mg daily dose since last visit. Her heart rate in the office is 84 BPM today. Patient reports that she does have occasional heart palpitations that she gets anxious or stressed at times, which is not very often. She states that is the only time she feels her heart beating. Patient does not have any associated lightheadedness, shortness of breath with heart palpitations. Patient has well-controlled blood pressure in the office today. She is currently taking hydrochlorothiazide-triamter francesca 25-37.5 mg daily along with metoprolol 50 mg ER daily. BP is usually well controlled. Patient knows reports that she has some chest pain as there is on the right side of her chest and can sometimes radiate to the left. She states that this has occurred intermittently ever since she had lumpectomy for breast cancer. Patient reports that she does not feel like it is any significantly different. She states it does not always come on with activity. She did have a normal stress test in 10/2023 Patient denies shortness of breath, heart palpitations, dizziness/lightheadedness, and swelling in lower legs. REVIEWED PRIOR NOTE FROM 07/28/2024: Patient comes in for 6-week follow-up today. At last visit, I saw patient at which time PVRs of both lower extremities were ordered for patient. This test came back showing no significant stenosis in lower extremities bilaterally. Patient reports that she still does have this same wound on her right ankle. She does have a follow-up with wound clinic in the near future. Patient reports that she has been compliant with this metoprolol 50 mg daily dose since last visit. However, patient reports that she was out of the medication for a week or 2 prior to her visit with Dr. Michelle and at that visit, he felt some skipped heartbeats and heard a heart murmur. Her heart rate in the office is 72 BPM today. Patient reports that she does have occasional heart palpitations that she gets anxious or stressed at times, which is not very often. She states that is the only time she feels her heart beating. Patient does not have any associated lightheadedness, shortness of breath with heart palpitations. Patient has slightly elevated blood pressure in the office today. She is currently taking hydrochlorothiazide-triamter francesca 25-37.5 mg daily along with metoprolol 50 mg ER daily. BP is usually well controlled. Patient denies chest pain, shortness of breath, heart palpitations, dizziness/lightheadedness, and swelling in lower legs. Review of Systems ROS - Clinical Support GI Symptoms: None Cardiopulmonary Symptoms: Chest pain/pressure at rest PHQ Score Initial Depression Screen Score: 0 SCORE ROS - Provider Constitutional: no fever, no chills, no sweats, no weakness Respiratory: no shortness of breath, no cough Cardiovascular: no chest pain Neuro: no dizziness. no loss of consciousness Physical Exam Vitals & Measurements HR: 84(Peripheral) RR: 16 BP: 114/72 SpO2: 95% HT: 162 cm HT: 64 in WT: 80.8 kg WT: 178.133 lb BMI: 30.79 General: alert, no acute distress Cardiovascular: regular rate and rhythm, no murmur normal peripheral perfusion Respiratory: Lungs CTAB, respirations non labored Extremities: no edema left lower extremity. Trace edema right lower extremity. Neurological: oriented x 4, LOC appropriate for age, speech normal Skin: Warm, dry, intact- no rash or concerning lesions Cardiac Diagnostics (06/24/2024 10:33 EST US PVR Lower EXT Complete Bilat) IMPRESSION: NO EVIDENCE OF SIGNIFICANT ARTERIAL STENOTIC DISEASE INVOLVING THE RIGHT AND LEFT LEGS. [1] Holter monitor from 11/26/2023: PROCEDURE DETAILS: The patient was recorded for two days capturing an average heart rate of 91 beats per minute, minimum heart rate of 52 beats per minute, and maximum heart rate of 139 beats per minute. The patient was in tachycardia 21.7% of the time. There was no atrial fibrillation. There were ventricular premature beats, supraventricular premature beats, and premature ventricular contractions and couplets. CONCLUSIONS: Abnormal Holter for premature ventricular contractions and couplets. Clinical correlation suggested. [2] (11/10/2023 10:59 EDT Echo [facility] (more content not included)... Normal [facility] Comment on above: Result Comment: Elec tronically Signed By: Young GALVAN, Edmond Rojo\\.br\\Date and Time Signed: 01/25/25 12:46 EDT [facility] 01-18-20 [facility] Case Information Case Priority: None Programs: -- Referral Source: [employer] Referral Reason: Disease management Case Type: Chronic Care Management Risk Score: -- Case Status: Active (December 25, 2022) Date Assigned: December 11, 2022 Assigned By: Sofie Pop RN Date Enrolled: December 18, 2022 Assigned Primary Personnel: Sofie Pop RN Assigned Secondary Personnel: -- Case Physician: Yelena MICHELLE MD Problems Ongoing Back pain, 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 Breast cancer, right Chronic kidney disease, stage 3a Cystocele with rectocele DDD (degenerative disc disease), lumbar Dyssynergic defecation Edema Encounter for follow-up surveillance of breast cancer Fecal incontinence GERD (gastroesophageal reflux disease) Heart murmur History of colon polyps History of gastric ulcer History of kidney stones Hoarseness Hyperglycemia Hyperlipidemia Hypertension Leg wound, right Long-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 Macular degeneration Memory loss Osteoarthritis of knees, bilateral Osteopenia Recurrent UTI Skin lesion of right leg Tachycardia Tortuous aorta Unsteadiness Urge incontinence Vitamin D deficiency Historical Breast cancer Dysphagia Elevated alkaline phosphatase level Spinal stenosis NOS Procedure/Surgical History Lumpectomy of right breast (04/15/2023), Cystoscopic laser lithotripsy of ureteric calculus (09/05/2022), Cystoscopic insertion of ureteric stent (07/23/2022), Injection of nerve root of lumbar spine using fluoroscopic guidance (03/19/2022), Nerve blocks in lower limb (11/13/2021), Injection of nerve root of lumbar spine using fluoroscopic guidance (10/30/2021), Injection of facet joint using fluoroscopic guidance (12/26/2020), Esophagogastroduodenoscopy (11/07/2020), Knee replacement (07/09/2020), Colonoscopy (03/30/2015), Block, Cataract extraction and implantation of intraocular lens. Home Medications aspirin 81 mg Oral EC Tab, 81 mg= 1 tab(s), Oral, Daily Benadryl, 25 mg, Oral, Once a day (at bedtime) Calcium Plus Vitamin D3, 1 tab, Oral, BID Fosamax 70 mg Tab, 70 mg= 1 tab(s), Oral, q7day, 2 refills hydrochlorothiazide-triamter francesca 25 mg-37.5 mg Tab, See Instructions letrozole 2.5 mg Tab, 2.5 mg= 1 tab(s), Oral, Daily, 3 refills loperamide, PRN Metamucil, 1.7 gm, Oral, Daily Pantoprazole [address] Tab Toprol XL 50 mg Tab-ER, 50 mg= 1 tab(s), Oral, Daily, 11 refills Vitamin B12 1000 mcg Tab, 1000 mcg= 1 tab(s), Oral, Daily Vitamin D3 1000 intl units (25 mcg) Tab, 25 mcg= 1 tab(s), Oral, Daily Welchol 625 mg Tab, 1875 mg= 3 tab(s), Oral, BID, 5 refills Allergies No Known Allergies Social History Alcohol - Low Risk, 01/09/2021 Never., 07/13/2024 Current, Liquor, burbon or citizen of [place] whiskey, 3-5 times per week, 1 drinks/episode average. 1.00 drinks/episode maximum. Previous treatment: None. Alcohol use interferes with work or home: No. Drinks more than intended: No. Others hurt by drinking: No. Ready to change: No. Household alcohol concerns: No., 01/13/2023 Exercise Substance Abuse - Denies Substance Abuse, 09/07/2011 Never., 06/10/2024 Tobacco - Denies Tobacco Use, 09/07/2011 Never (less than 100 in lifetime) Tobacco Use:. Never Smokeless Tobacco Use:. Household tobacco concerns: No., 10/26/2024 Family History Acute myocardial infarction: Brother. COPD: Mother. Diabetes mellitus type 1: Brother. Heart failure: Brother. Primary malignant neoplasm of female breast: Aunt. Screenings and Assessments 02/10/23 10:07:00 Result Name Value Comment Phone Call Monitoring Consent Agreed to continue call Phone Verification Patient Information Full name, street address and date of verified CM Program Enrollment Provides verbal consent for enrollment CCM Program Enrollment Verbally agreed to receive CCM services CCM Written Consent Written consent obtained CCM Verbal Consent By Self 12/18/22 10:00:00 Result Name Value Comment HIPPA Verified Type of Contact Telephone CM Preferred Spoken Language Zimbabwean CM Preferred Written Language Zimbabwean Preferred Communication Mode Verbal Ability to Read/Write Able to read, Able to write Best Time to Visit or Contact 10-1 pm Best Day to Visit or Contact Thursday, Thursday, Appointment Reminders Phone Preferred Way to Send PHI Standard mail Able to Read Zimbabwean Able to read Zimbabwean Learning Style Pref Patient None Learning Style Pref Parent/Guardian None Teaching Method Printed materials Barriers to Learning None evident Cognitive Deficit No Response to Current Year Correct Response to Edvin (more content not included)... Normal [facility] 11-11-19 [facility] Case Information Case Priority: None Programs: -- Referral Source: [employer] Referral Reason: Disease management Case Type: Chronic Care Management Risk Score: -- Case Status: Active (December 25, 2022) Date Assigned: December 11, 2022 Assigned By: Sofie Pop RN Date Enrolled: December 18, 2022 Assigned Primary Personnel: Sofie Pop RN Assigned Secondary Personnel: -- Case Physician: WAYNE CHERY, Yelena Quach Ongoing Back pain, 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 Breast cancer, right Chronic kidney disease, stage 3a Cystocele with rectocele DDD (degenerative disc disease), lumbar Dyssynergic defecation Edema Encounter for follow-up surveillance of breast cancer Fecal incontinence GERD (gastroesophageal reflux disease) Heart murmur History of colon polyps History of gastric ulcer History of kidney stones Hoarseness Hyperglycemia Hyperlipidemia Hypertension Leg wound, right Long-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 Macular degeneration Memory loss Osteoarthritis of knees, bilateral Osteopenia Recurrent UTI Skin lesion of right leg Tachycardia Tortuous aorta Unsteadiness Urge incontinence Vitamin D deficiency Historical Breast cancer Dysphagia Elevated alkaline phosphatase level Spinal stenosis NOS Procedure/Surgical History Lumpectomy of right breast (04/15/2023), Cystoscopic laser lithotripsy of ureteric calculus (09/05/2022), Cystoscopic insertion of ureteric stent (07/23/2022), Injection of nerve root of lumbar spine using fluoroscopic guidance (03/19/2022), Nerve blocks in lower limb (11/13/2021), Injection of nerve root of lumbar spine using fluoroscopic guidance (10/30/2021), Injection of facet joint using fluoroscopic guidance (12/26/2020), Esophagogastroduodenoscopy (11/07/2020), Knee replacement (07/09/2020), Colonoscopy (03/30/2015), Block, Cataract extraction and implantation of intraocular lens. Home Medications aspirin 81 mg Oral EC Tab, 81 mg= 1 tab(s), Oral, Daily Benadryl, 25 mg, Oral, Once a day (at bedtime) Calcium Plus Vitamin D3, 1 tab, Oral, BID Fosamax 70 mg Tab, 70 mg= 1 tab(s), Oral, q7day, 2 refills hydrochlorothiazide-triamter francesca 25 mg-37.5 mg Tab, 1 tab(s), Oral, Daily, PRN, 5 refills letrozole 2.5 mg Tab, 2.5 mg= 1 tab(s), Oral, Daily, 3 refills loperamide, PRN Metamucil, 1.7 gm, Oral, Daily Pantoprazole [address] Tab Toprol XL 50 mg Tab-ER, 50 mg= 1 tab(s), Oral, Daily, 11 refills Vitamin B12 1000 mcg Tab, 1000 mcg= 1 tab(s), Oral, Daily Vitamin D3 1000 intl units (25 mcg) Tab, 25 mcg= 1 tab(s), Oral, Daily Welchol 625 mg Tab, 1875 mg= 3 tab(s), Oral, BID, 5 refills Allergies No Known Allergies Social History Alcohol - Low Risk, 01/09/2021 Never., 07/13/2024 Current, Liquor, burbon or citizen of [place] whiskey, 3-5 times per week, 1 drinks/episode average. 1.00 drinks/episode maximum. Previous treatment: None. Alcohol use interferes with work or home: No. Drinks more than intended: No. Others hurt by drinking: No. Ready to change: No. Household alcohol concerns: No., 01/13/2023 Exercise Substance Abuse - Denies Substance Abuse, 09/07/2011 Never., 06/10/2024 Tobacco - Denies Tobacco Use, 09/07/2011 Never (less than 100 in lifetime) Tobacco Use:. Never Smokeless Tobacco Use:. Household tobacco concerns: No., 10/26/2024 Family History Acute myocardial infarction: Brother. COPD: Mother. Diabetes mellitus type 1: Brother. Heart failure: Brother. Primary malignant neoplasm of female breast: Aunt. Screenings and Assessments 02/10/23 10:07:00 Result Name Value Comment Phone Call Monitoring Consent Agreed to continue call Phone Verification Patient Information Full name, street address and date of verified Program Enrollment Provides verbal consent for enrollment [facility] Program Enrollment Verbally agreed to receive [facility] services [facility] Written Consent Written consent obtained [facility] Verbal Consent By Self 12/18/22 10:00:00 Result Name Value Comment HIPPA Verified Type of Contact Telephone Preferred Spoken Language Zimbabwean Preferred Written Language Zimbabwean Preferred Communication Mode Verbal Ability to Read/Write Able to read, Able to write Best Time to Visit or Contact 10-1 pm Best Day to Visit or Contact Thursday, Thursday, Appointment Reminders Phone Preferred Way to Send PHI Standard mail Able to Read Zimbabwean Able to read Zimbabwean Learning Style Pref Patient None Learning Style Pref Parent/Guardian None Teaching Method Printed materials Barriers to Learning None evident Cognitive Deficit No Response to Current Year Correct (more content not included)... Normal [facility] Ambulatory Visit Summaryon 0 10-26-2024 Ambulatory Visit Summary Ambulatory Visit Summary JERRICA ROCK :1935 Visit Date:10/26/2024 Ambulatory Visit Instructions Your Diagnosis Hypertension Hyperlipidemia Hyperglycemia Chronic kidney disease, stage 3a Breast cancer, right Memory loss Vitamin D deficiency Back pain, chronic Adult BMI 30.0-30.9 kg/sq m Other obesity not elsewhere classified Leg wound, right GERD (gastroesophageal reflux disease) These Are Your Goals Hyperglycemia:Maintain Hem A1C below 5.9% 09/10/2022 - Progressing Interventions: Complete lab work as ordered - Progressing Eat a balanced diet - Progressing Maintain an active lifestyle - Progressing Review education material - Done Hypertension:Maintain BP within a therapeutic range Interventions: Maintain an active lifestyle - Progressing Monitor BP as needed - Progressing Monitor sodium intake - Progressing Review education material - Done Hyperlipidemia: Maintain lipid profile within a therapeutic range - Progressing Interventions: Avoid foods high in saturated fats/fried foods - Progressing Complete lab work as ordered - Progressing Increase fruits and vegetables in diet - Progressing Maintain an active lifestyle - Progressing Review education material - Done Vitamin D deficiency:Maintain therapeutic levels - Progressing Interventions: Complete lab work as ordered - Progressing Monitor for symptoms(Bone/muscle pain, frequent falls and broken bones by minor injuries - Progressing Perform low impact exercises daily - Progressing Review education material - Done Your Care Team Attending Physician - Yelena MICHELLE MD Primary Care Physician - Yelena MICHELLE MD This Is Your Medications List Contact prescribing physician if questions or concerns alendronate (Fosamax 70 mg Tab) aspirin (aspirin 81 mg Oral EC Tab) calcium-vitamin D (Calcium Plus Vitamin D3) cholecalciferol (Vitamin D3 1000 intl units (25 mcg) Tab) colesevelam (Welchol 625 mg Tab) cyanocobalamin (Vitamin B12 1000 mcg Tab) diphenhydrAMINE (Benadryl) hydrochlorothiazide-triamter francesca (hydrochlorothiazide-triamte iris 25 mg-37.5 mg Tab) letrozole (letrozole 2.5 mg Tab) loperamide metoprolol (Toprol XL 50 mg Tab-ER) pantoprazole (Pantoprazole [address] Tab) psyllium (Metamucil) Procedures Performed Lumpectomy of right breast (04/15/2023), Cystoscopic laser lithotripsy of ureteric calculus (09/05/2022), Cystoscopic insertion of ureteric stent (07/23/2022), Injection of nerve root of lumbar spine using fluoroscopic guidance (03/19/2022), Nerve blocks in lower limb (11/13/2021), Injection of nerve root of lumbar spine using fluoroscopic guidance (10/30/2021), Injection of facet joint using fluoroscopic guidance (12/26/2020), Esophagogastroduodenoscopy (11/07/2020), Knee replacement (07/09/2020), Colonoscopy (03/30/2015), Block, Cataract extraction and implantation of intraocular lens. Discharge Vitals Temperature (Oral) 36.4 ???C Heart Rate (Peripheral) 84 Blood Pressure 128/78 Height 162 cm Height 64 in Weight 80.5 kg Weight 177.472 lb BMI 30.67 What to do next Scheduled Follow-Up Appointments Thursday 2:30 PM EDT With: Where: [facility] [address] [place] [address]- Thursday 11:15 AM EDT With: Edmond Vidal PA-C Where: Cardiology Clinic Thursday 10:40 AM EDT With: Sandoval CHERY, trevor He Where: Oncology Thursday 11:00 AM EDT With: Yelena MICHELLE MD Where: [facility] [address] [place] [address]- Thursday 11:00 AM EDT With: Yelena Osorio MD Where: [facility] [place] [address], [address] [place] [address]- You Need to Schedule the Following Appointments Follow Up with WAYNE CHERY, Yelena Howard, MED When: In 4 months Where: [facility] [address] [place] [address]- You Need to Complete the Following CBC w/ Auto Diff, Blood, Routine collect, 10/26/24, Order for future visit, Lab Collect, Hypertension, Print Label By Order Location Comprehensive Metabolic Panel, Blood, Routine collect, 10/26/24, Order for future visit, Lab Collect, Hypertension, Print Label By Order Location HgbA1c, Blood, Routine collect, 10/26/24, Order for future visit, Lab Collect, Hyperglycemia, Print Label By Order Location Lipid Panel, Blood, Routine collect, 10/26/24, Order for future visit, Lab Collect, Hyperlipidemia, Print Label By Order Location Vitamin D 25 Hydroxy, Blood, Routine collect, 10/26/24, Order for future visit, Lab Collect, Chronic kidney disease, stage 3a, Print Label By Order Location Medications What How Much When Why Instructions Unchanged alendronate (Fosamax 70 mg Tab) 1 Tablets By Mouth Every 7 days MGUS (monoclonal gammopat (more content not included)... Normal [facility] Family Medicine Office/Clini c Noteon 10-26-2024 Family Medicine Office/Clinic Note Family Medicine Office/Clinic Note Chief Complaint Patient here for 4 month f/u on htn, gerd--had labs done. HPI Staff Last colonoscopy 01-13-2020 Last mammogram 02-17-2024 AWV scheduled 01-16-2025 History of Present Illness Here for med follow up. She has been feeling ok She does have chronic back pain and is going to [facility] and pain management. Plan is for another ablation. She has htn. She denies CP or SOB. She is going to wound clinic in [place] for a wound on her R leg Review of Systems PHQ Score Initial Depression Screen Score: 0 SCORE Physical Exam Vitals & Measurements T: 36.4 ???C(Oral) HR: 84(Peripheral) BP: 128/78 SpO2: 94% HT: 162 cm HT: 64 in WT: 80.5 kg WT: 177.472 lb BMI: 30.67 General: Well developed, well nourished, in no acute distress Eyes: Pupils equal, round, and reactive to light. Conjunctivae and sclerae normal, and extraocular movements intact Ears: _Mild [place] Nose: No deformity, discharge, inflammation, or lesions Mouth: MMM. Oropharynx and posterior pharynx without lesions or exudates. Tongue WNL Neck: _supple, no bruit Lungs: Normal respiratory effort and clear to auscultation Cardio: irregular rhythm, normal rate, 2/6 murmur Abdomen: Soft, non-distended, non-tender Musculoskeletal: No joint swelling or synovitis noted Extremity: Trace edema Neurologic: _no focal deficits, good recall of recent events. Occasional mild delay in word recall. Skin: _wound Medial R lower leg about 1cm in diameter. Mental Status: Alert and oriented x3. Normal mood and affec Assessment/Plan 1. Hypertension (I10: Essential (primary) hypertension) stay on metoprolol and Maxzide Ordered: CBC w/ Auto Diff Comprehensive Metabolic Panel 2. Hyperlipidemia (E78.5: Hyperlipidemia, unspecified) Chol: 178 mg/dL (06/21/24 11:03:00) HDL: 43 mg/dL (06/21/24 11:03:00) LDL Direct: 116 mg/dL (06/21/24 11:03:00) Tri mg/dL (06/21/24 11:03:00) VLDL: 28 mg/dL (06/21/24 11:03:00) Keep on diet Ordered: Lipid Panel 3. Hyperglycemia (R73.9: Hyperglycemia, unspecified) Hgb A1C %: 6.1 % High (06/21/24 11:03:00) Keep on diet Ordered: HgbA1c 4. Chronic kidney disease, stage 3a (N18.31: Chronic kidney disease, stage 3a) eGFR: 48 mL/min/1.73 m2 Low (10/21/24 10:27:00) Creatinine: 1.1 mg/dL (10/21/24 10:27:00) Ordered: Vitamin D 25 Hydroxy 5. Breast cancer, right (C50.911: Malignant neoplasm of unspecified site of right female breast) she is on letrozole sees surgery and oncology 6. Memory loss (R41.3: Other amnesia) mild 7. Vitamin D deficiency (E55.9: Vitamin D deficiency, unspecified) stay on D 3 8. Back pain, chronic (M54.9: Dorsalgia, unspecified) She has been to NS and pain management Plan is for an ablation. 9. Adult BMI 30.0-30.9 kg/sq m (Z68.30: Body mass index [BMI] 30.0-30.9, adult) The standard range for ages 18 and older is >=18.5 and < 25 kg/m2. Your BMI today was above this range, this falls in the overweight to obese category and there are medical benefits to weight loss. We can offer counselling, referral, and/or medical support in addressing this problem. Your BMI and weight management will be followed at subsequent visits. 10. Other obesity not elsewhere classified (E66.89: Other obesity not elsewhere classified) 11. Leg wound, right (S81.801A: Unspecified open wound, right lower leg, initial encounter) She is going to the wound clinic in [place]. 12. GERD (gastroesophageal reflux disease) (K21.9: Gastro-esophageal reflux disease without esophagitis) controlled on pantoprazole Follow-up With When Contact Information WAYNE CHERY, Yelena Howard, CHRISTIE In 4 months [facility] [address], [place] [address]- Additional Instructions: Patient Education Hypertension, Adult, [id number] Problem List/Past Medical History Ongoing Back pain, 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 Breast cancer, right Chronic kidney disease, stage 3a Cystocele with rectocele DDD (degenerative disc disease), lumbar Dyssynergic defecation Edema Encounter for follow-up surveillance of breast cancer Fecal incontinence GERD (gastroesophageal reflux disease) Heart murmur History of colon polyps History of gastric ulcer History of kidney stones Hoarseness Hyperglycemia Hyperlipidemia Hypertension Leg wound, right Long-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 Macular degeneration Memory loss Osteoarthritis of knees, bilateral Osteopenia Recurrent UTI Skin lesion of right leg Tachycardia Tortuous aorta Unsteadiness Urge incontinence Vitamin D deficiency Historical Breast cancer Dysphagia Elevated alkaline phosphatase level Spinal stenosis NOS Procedure/Surgical History Lumpectomy of right breast (04/15/2023), Cystoscopic laser lithotripsy of ureteric calculus (09/05/2022), Cystoscopic insertion of ureteric stent (07/23/2022), Injection of nerve root (more content not included)... Normal [facility] Comment on above: Result Comment: Elec tronically Signed By: WAYNE CHERY, Yelena Howard\\.br\\Date and Time Signed: 10/26/24 10:38 EDT [facility] [place] 10-23-2024 Parathyrin.intact [Mass/Vol] 37 pg/mL Invalid Interpretation Code 15-65 [facility] Comment on above: Result Comment: Perf ormed at: [facility] [address] [id number] PhD Daniel Potter Performed By: #### 1 [id number] #### [facility] [address] [place] [address] CBC w/ Auto Diffon 5 Basophils/100 WBC (Bld) 0.3 % Normal 0.0-2.0 [facility] Comment on above: Performed By: #### 2 [id number] #### [facility] [address] [place] [address] Basophils/Leukocyte s Auto (Bld) [Pure # fraction] 0.0 E9/L Normal 0.0-0.2 [facility] Comment on above: Performed By: #### 2 [id number] #### [facility] [address] [place] [address] Eosinophils (Bld) [#/Vol] 0.5 E9/L Normal 0.0-0.5 [facility] Comment on above: Performed By: #### 2 [id number] #### [facility] [address] [place] [address] Eosinophils/100 WBC (Bld) 3.5 % Normal 0.0-8.0 [facility] Comment on above: Performed By: #### 2 [id number] #### [facility] [address] [place] [address] Erythrocyte distribution width (RBC) [Ratio] 15.1 % High 10.9-14.2 [facility] Comment on above: Performed By: #### 2 [id number] #### [facility] [address] [place] [address] Hematocrit (Bld) [Volume fraction] 44.3 % Normal 34.0-46.0 [facility] Comment on above: Performed By: #### 2 [id number] #### [facility] [address] [place] [address] Hemoglobin (Bld) [Mass/Vol] 14.6 g/dL Normal 12.0-16.0 [facility] Comment on above: Performed By: #### 2 [id number] #### [facility] [address] [place] [address] Lymphocytes (Bld) [#/Vol] 2.7 E9/L Normal 1.0-4.0 [facility] Comment on above: Performed By: #### 2 [id number] #### [facility] [address] [place] [address] Lymphocytes/100 WBC (Bld) 19.1 % Normal 14.0-50.0 [facility] Comment on above: Performed By: #### 2 [id number] #### [facility] [address] [place] [address] MCH (RBC) [Entitic mass] 28.9 pg Normal 27.0-34.0 [facility] Comment on above: Performed By: #### 2 [id number] #### [facility] [address] [place] [address] MCHC (RBC) [Mass/Vol] 33.0 g/dL Normal 31.4-36.0 [facility] Comment on above: Performed By: #### 2 [id number] #### [facility] [address] [place] [address]888 MCV (RBC) [Entitic vol] 87.7 fL Normal 80.0-100.0 [facility] Comment on above: Performed By: #### 2 [id number] #### [facility] [address] [place] [address] Monocytes (Bld) [#/Vol] 1.1 E9/L High 0.2-1.0 [facility] Comment on above: Performed By: #### 2 [id number] #### [facility] [address] [place] [address] Neutrophils (Bld) [#/Vol] 10.0 E9/L High 2.0-7.5 [facility] Comment on above: Performed By: #### 2 [id number] #### [facility] [address] [place] [address] Neutrophils/100 WBC (Bld) 69.2 % Normal 36.0-75.0 [facility] Comment on above: Performed By: #### 2 [id number] #### [facility] [address] [place] [address] Platelet mean volume (Bld) [Entitic vol] 9.9 fL Normal 6.4-10.8 [facility] Comment on above: Performed By: #### 2 [id number] #### [facility] [address] [place] [address] Platelets (Bld) [#/Vol] 277.0 E9/L Normal 150.0-500. 0 [facility] Comment on above: Performed By: #### 2 [id number] #### [facility] [address] [place] [address] RBC (Bld) [#/Vol] 5.1 E12/L Normal 4.3-5.9 [facility] Comment on above: Performed By: #### 2 [id number] #### [facility] [address] [place] [address] WBC corrected for nucl RBC Auto (Bld) [#/Vol] 14.4 E9/L High 4.0-11.0 [facility] Comment on above: Performed By: #### 2 [id number] #### [facility] [address] [place] [address] CHEMISTRYOrdered By: SYSTEM SYSTEM on 10-21-2024 25-hydroxyvitamin D3 [Mass/Vol] 49.1 ng/mL Normal 30.0 - 100.0 ng/mL Remisol Chem Albumin [Mass/Vol] 4.2 g/dL Normal 3.3 - 5.0 gm/dL Remisol Chem Albumin/Globulin [Mass ratio] 1.1 {ratio} Normal 1.1 - 2.2 Rem[facility] Chem ALP [Catalytic activity/Vol] 108 [iU]/d High 21 - 98 Int._Unit/ L Remisol Chem ALT No additional P-5'-P [Catalytic activity/Vol] 11 [iU]/d Normal 6 - 46 Int._Unit/ L [facility] Anion gap [Moles/Vol] 13 mmol/L Normal 6 - 16 mEq/L [facility] Chem AST [Catalytic activity/Vol] 15 [iU]/d Normal 5 - 43 Int._Unit/ L [facility] Bilirubin [Mass/Vol] 0.7 mg/dL Normal 0.0 - 1.1 mg/dL Rem[facility] Chem Calcium [Mass/Vol] 9.4 mg/dL Normal 8.9 - 11. 1 mg/dL [facility] Chem Chloride [Moles/Vol] 105 mmol/L Normal 101 - 111 mmol/L [facility] CO2 [Moles/Vol] 25 mmol/L Normal 21 - 31 mmol/L [facility] Creatinine [Mass/Vol] 1.1 mg/dL Normal 0.5 - 1.3 mg/dL Remisol Chem eGFR 48 mL/min/1.73 m2 Low >=59mL/min /1.73 m2 Remisol Chem Globulin (S) [Mass/Vol] 3.9 g/dL Normal 1.4 - 4.0 gm/dL Rem[facility] Chem Glucose [Mass/Vol] 93 mg/dL Normal 55 - 199 mg/dL Rem[facility] Chem Potassium [Moles/Vol] 4.1 mmol/L Normal 3.5 - 5.3 mmol/L Remisol Chem Protein [Mass/Vol] 8.1 g/dL High 6.0 - 7.8 gm/dL Remisol Chem Sodium [Moles/Vol] 139 mmol/L Normal 135 - 145 mmol/L Remisol Chem Urea nitrogen [Mass/Vol] 27 mg/dL High 5 - 21 mg/dL Remisol Chem Urea nitrogen/Creatinine [Mass ratio] 24 mg/mg High 10 - 20 Remisol Chem CMPon 10-21-2024 Albumin [Mass/Vol] 4.2 g/dL Normal 3.3-5.0 [facility] Comment on above: Performed By: #### 2 [id number] #### [facility] [address] [place] [address] Albumin/Globulin (S) [Mass conc ratio] 1.1 Normal 1.1-2.2 [facility] Comment on above: Performed By: #### 2 [id number] #### [facility] [address] [place] [address] ALP [Catalytic activity/Vol] 108 Int._Unit/L High 21-98 [facility] Comment on above: Performed By: #### 2 [id number] #### [facility] [address] [place] [address] ALT No additional P-5'-P [Catalytic activity/Vol] 11 Int._Unit/L Normal 6-46 [facility] Comment on above: Performed By: #### 2 [id number] #### [facility] [address] [place] [address] Anion gap [Moles/Vol] 13 mmol/L Normal 6-16 [facility] Comment on above: Performed By: #### 2 [id number] #### [facility] [address] [place] [address] AST [Catalytic activity/Vol] 15 Int._Unit/L Normal 5-43 [facility] Comment on above: Performed By: #### 2 [id number] #### [facility] [address] [place] [address] Bilirubin [Mass/Vol] 0.7 mg/dL Normal 0.0-1.1 [facility] Comment on above: Performed By: #### 2 [id number] #### [facility] [address] [place] [address] Calcium [Mass/Vol] 9.4 mg/dL Normal 8.9-11.1 [facility] Comment on above: Performed By: #### 2 [id number] #### [facility] [address] [place] [address] Chloride [Moles/Vol] 105 mmol/L Normal 101-111 [facility] Comment on above: Performed By: #### 2 [id number] #### [facility] [address] [place] [address] CO2 [Moles/Vol] 25 mmol/L Normal 21-31 [facility] Comment on above: Performed By: #### 2 [id number] #### [facility] [address] [place] [address] Creatinine [Mass/Vol] 1.1 mg/dL Normal 0.5-1.3 [facility] Comment on above: Performed By: #### 2 [id number] #### [facility] [address] [place] [address] Globulin (S) [Mass/Vol] 3.9 g/dL Normal 1.4-4.0 [facility] Comment on above: Performed By: #### 2 [id number] #### [facility] [address] [place] [address] Glucose [Mass/Vol] 93 mg/dL Normal 55-199 [facility] Comment on above: Performed By: #### 2 [id number] #### [facility] [address] [place] [address] Potassium [Moles/Vol] 4.1 mmol/L Normal 3.5-5.3 [facility] Comment on above: Performed By: #### 2 [id number] #### [facility] [address] [place] [address] Protein [Mass/Vol] 8.1 g/dL High 6.0-7.8 [facility] Comment on above: Performed By: #### 2 [id number] #### [facility] [address] [place] [address] Sodium [Moles/Vol] 139 mmol/L Normal 135-145 [facility] Comment on above: Performed By: #### 2 [id number] #### [facility] [address] [place] [address] Urea nitrogen [Mass/Vol] 27 mg/dL High 5-21 [facility] Comment on above: Performed By: #### 2 [id number] #### [facility] [address] [place] [address] Urea nitrogen/Creatinine [Mass ratio] 24 No Units High 10-20 [facility] Comment on above: Performed By: #### 2 [id number] #### [facility] [address] [place] [address] General Surgery Office/Clini c Noteon 10-21-2024 General Surgery Office/Clinic Note General Surgery Office/Clinic Note Chief Complaint 6 month follow up HPI Staff Jerrica Pat is a an 88 y.o. 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 Last seen by general surgery April 11, 2024. Last mammogram January 2024 BI-RADS 2. Physical Exam Vitals & Measurements HR: 83(Peripheral) BP: 148/80 HT: 64 in HT: 162 cm WT: 80.5 kg WT: 177.472 lb BMI: 30.67 Left breast exam: Nipple areolar complex is within normal limits, there is no nipple retraction or nipple inversion. There is no nipple discharge noted on examination. There is no palpable mass noted on examination. There is no skin thickening or peau d'orange noted on examination. Right breast exam: Nipple areolar complex is within normal limits, there is no nipple retraction or nipple inversion. There is no nipple discharge noted on examination. There is no palpable mass noted on examination. There is no skin thickening or peau d'orange noted on examination. Right breast incision is clean dry intact and is healed well Lymph node: Bilateral axillary exam is within normal limits with no enlarged lymph nodes or masses noted on exam, no evidence of supraclavicular lymphadenopathy noted on examination Assessment/Plan 1. Encounter for follow-up surveillance of breast cancer (Z08: Encounter for follow-up examination after completed treatment for malignant neoplasm) Follow-up with repeat mammogram in 6 months Ordered: E&M of Est. Patient Low 20-29 Min 64100 2. Breast cancer, right (C50.911: Malignant neoplasm of unspecified site of right female breast) As above Ordered: E&M of Est. Patient Low 20-29 Min 67581 Personal history of malignant neoplasm of breast (Z85.3: Personal history of malignant neoplasm of breast) Portions of this record may have been created with voice recognition artificial intelligence software, specifically [employer], Language [employer] and or [employer]. Substitutions may have occurred due to the inherent limitations of voice recognition and artificial intelligence software. Follow-up No qualifying data available Problem List/Past Medical History Ongoing Back pain, 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 Breast cancer, right Chronic kidney disease, stage 3a Cystocele with rectocele DDD (degenerative disc disease), lumbar Dyssynergic defecation Edema Encounter for follow-up surveillance of breast cancer Fecal incontinence GERD (gastroesophageal reflux disease) Heart murmur History of colon polyps History of gastric ulcer History of kidney stones Hoarseness Hyperglycemia Hyperlipidemia Hypertension Long-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 Macular degeneration Memory loss Osteoarthritis of knees, bilateral Osteopenia Recurrent UTI Skin lesion of right leg Tachycardia Tortuous aorta Unsteadiness Urge incontinence Vitamin D deficiency Historical Breast cancer Dysphagia Elevated alkaline phosphatase level Spinal stenosis NOS Procedure/Surgical History Lumpectomy of right breast (04/15/2023), Cystoscopic laser lithotripsy of ureteric calculus (09/05/2022), Cystoscopic insertion of ureteric stent (07/23/2022), Injection of nerve root of lumbar spine using fluoroscopic guidance (03/19/2022), Nerve blocks in lower limb (11/13/2021), Injection of nerve root of lumbar spine using fluoroscopic guidance (10/30/2021), Injection of facet joint using fluoroscopic guidance (12/26/2020), Esophagogastroduodenoscopy (11/07/2020), Knee replacement (07/09/2020), Colonoscopy (03/30/2015), Block, Cataract extraction and implantation of intraocular lens. Medications aspirin 81 mg Oral EC Tab, 81 mg= 1 tab(s), Oral, Daily Benadryl, 25 mg, Oral, Once a day (at bedtime) Calcium Plus Vitamin D3, 1 tab, Oral, BID Fosamax 70 mg Tab, 70 mg= 1 tab(s), Oral, q7day, 2 refills hydrochlorothiazide-triamter francesca 25 mg-37.5 mg Tab, 1 tab(s), Oral, Daily, PRN, 5 refills letrozole 2.5 mg Tab, 2.5 mg= 1 tab(s), Oral, Daily, 3 refills loperamide, PRN Metamucil, 1.7 gm, Oral, Daily Pantoprazole [address] Tab Toprol XL 50 mg Tab-ER, 50 mg= 1 tab(s), Oral, Daily, 11 refills Vitamin D3 1000 intl units (25 mcg) Tab, 25 mcg= 1 tab(s), Oral, Daily Welchol 625 mg Tab, 1875 mg= 3 tab(s), Oral, BID, 5 refills Allergies No Known Allergies Social History Alcohol - Low Risk, 01/09/2021 Never., 07/13/2024 Current, Liquor, burbon or citizen of [place] whiskey, 3-5 times per week, 1 drinks/episode average. 1.00 drinks/episode maximum. Previous treatment: None. Alcohol use interferes with work or (more content not included)... Normal [facility] Comment on above: Result Comment: Elec tronically Signed By: Jo CHERY, Yelena Sybr\\Date and Time Signed: 10/21/24 11:32 EDT HEMATOLOGYOrdered By: SYSTEM SYSTEM on 10-21-2024 Basophils/100 WBC (Bld) 0.3 % Normal 0.0 - 2.0 % Remisol Heme Basophils/Leukocyte s Auto (Bld) [Pure # fraction] 0.0 E9/L Normal 0.0 - 0.2 E9/L Rem[facility] Heme Eosinophils (Bld) [#/Vol] 0.5 E9/L Normal 0.0 - 0.5 E9/L [facility] Eosinophils/100 WBC (Bld) 3.5 % Normal 0.0 - 8.0 % Remisol Heme Erythrocyte distribution width (RBC) [Ratio] 15.1 % High 10.9 - 14.2 % Remisol Heme Hematocrit (Bld) [Volume fraction] 44.3 % Normal 34.0 - 46.0 % Remisol Heme Hemoglobin (Bld) [Mass/Vol] 14.6 g/dL Normal 12.0 - 16.0 gm/dL Remisol Heme Lymphocytes (Bld) [#/Vol] 2.7 E9/L Normal 1.0 - 4.0 E9/L Rem[facility] Heme Lymphocytes/100 WBC (Bld) 19.1 % Normal 14.0 - 50.0 % Remisol Heme MCH (RBC) [Entitic mass] 28.9 pg Normal 27.0 - 34.0 pg Remisol Heme MCHC (RBC) [Mass/Vol] 33.0 g/dL Normal 31.4 - 36.0 gm/dL Remisol Heme MCV (RBC) [Entitic vol] 87.7 fL Normal 80.0 - 100.0 fL Remisol Heme Monocytes (Bld) [#/Vol] 1.1 E9/L High 0.2 - 1.0 E9/L Remisol Heme Monocytes/100 WBC (Bld) 7.9 % Normal 4.0 - 14.0 % Remisol Heme Neutrophils (Bld) [#/Vol] 10.0 E9/L High 2.0 - 7.5 E9/L Remisol Heme Neutrophils/100 WBC (Bld) 69.2 % Normal 36.0 - 75.0 % Remisol Heme Platelet mean volume (Bld) [Entitic vol] 9.9 fL Normal 6.4 - 10.8 fL Remisol Heme Platelets (Bld) [#/Vol] 277.0 E9/L Normal 150.0 - 500.0 E9/L Remisol Heme RBC (Bld) [#/Vol] 5.1 E12/L Normal 4.3 - 5.9 E12/L [facility] Heme WBC corrected for nucl RBC Auto (Bld) [#/Vol] 14.4 E9/L High 4.0 - 11.0 E9/L Remisol Heme Vitamin D 25 Hydroxyon 10-21 25-hydroxyvitamin D3 [Mass/Vol] 49.1 ng/mL Normal 30.0-100.0 [facility] Comment on above: Performed By: #### [id number] #### [facility] [address] [place] [address] eGFRon 10-21-2024 eGFR 48 mL/min/1.73 m2 Low >=59 [facility] Comment on above: Performed By: #### 1 [id number] #### [facility] [address] [place] [address] Population Health 09-21-19 25 [facility] Case Information Case Priority: None Programs: -- Referral Source: [employer] Referral Reason: Disease management Case Type: Chronic Care Management Risk Score: -- Case Status: Active (December 25, 2022) Date Assigned: December 11, 2022 Assigned By: Sofie Pop RN Date Enrolled: December 18, 2022 Assigned Primary Personnel: Sofie Pop RN Assigned Secondary Personnel: -- Case Physician: Yelena MICHELLE MD Ongoing Back pain, 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 Breast cancer, right Chronic kidney disease, stage 3a Cystocele with rectocele DDD (degenerative disc disease), lumbar Dyssynergic defecation Edema Encounter for follow-up surveillance of breast cancer Fecal incontinence GERD (gastroesophageal reflux disease) Heart murmur History of colon polyps History of gastric ulcer History of kidney stones Hoarseness Hyperglycemia Hyperlipidemia Hypertension Long-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 Macular degeneration Memory loss Osteoarthritis of knees, bilateral Osteopenia Recurrent UTI Skin lesion of right leg Tachycardia Tortuous aorta Unsteadiness Urge incontinence Vitamin D deficiency Historical Breast cancer Dysphagia Elevated alkaline phosphatase level Spinal stenosis NOS Procedure/Surgical History Lumpectomy of right breast (04/15/2023), Cystoscopic laser lithotripsy of ureteric calculus (09/05/2022), Cystoscopic insertion of ureteric stent (07/23/2022), Injection of nerve root of lumbar spine using fluoroscopic guidance (03/19/2022), Nerve blocks in lower limb (11/13/2021), Injection of nerve root of lumbar spine using fluoroscopic guidance (10/30/2021), Injection of facet joint using fluoroscopic guidance (12/26/2020), Esophagogastroduodenoscopy (11/07/2020), Knee replacement (07/09/2020), Colonoscopy (03/30/2015), Block, Cataract extraction and implantation of intraocular lens. Home Medications aspirin 81 mg Oral EC Tab, 81 mg= 1 tab(s), Oral, Daily Benadryl, 25 mg, Oral, Once a day (at bedtime) Calcium Plus Vitamin D3, 1 tab, Oral, BID Fosamax 70 mg Tab, 70 mg= 1 tab(s), Oral, q7day, 2 refills hydrochlorothiazide-triamter francesca 25 mg-37.5 mg Tab, 1 tab(s), Oral, Daily, PRN, 5 refills letrozole 2.5 mg Tab, 2.5 mg= 1 tab(s), Oral, Daily, 3 refills loperamide, PRN Metamucil, 1.7 gm, Oral, Daily Pantoprazole [address] Atkinson Toprol XL 50 mg Tab-ER, 50 mg= 1 tab(s), Oral, Daily, 11 refills Vitamin D3 1000 intl units (25 mcg) Tab, 25 mcg= 1 tab(s), Oral, Daily Welchol 625 mg Tab, 1875 mg= 3 tab(s), Oral, BID, 5 refills Allergies No Known Allergies Social History Alcohol - Low Risk, 01/09/2021 Never., 07/13/2024 Current, Liquor, burbon or citizen of [place] whiskey, 3-5 times per week, 1 drinks/episode average. 1.00 drinks/episode maximum. Previous treatment: None. Alcohol use interferes with work or home: No. Drinks more than intended: No. Others hurt by drinking: No. Ready to change: No. Household alcohol concerns: No., 01/13/2023 Exercise Substance Abuse - Denies Substance Abuse, 09/07/2011 Never., 06/10/2024 Tobacco - Denies Tobacco Use, 09/07/2011 Never (less than 100 in lifetime) Tobacco Use:. Never Smokeless Tobacco Use:. Household tobacco concerns: No., 09/09/2024 Family History Acute myocardial infarction: Brother. COPD: Mother. Diabetes mellitus type 1: Brother. Heart failure: Brother. Primary malignant neoplasm of female breast: Aunt. Screenings and Assessments 02/10/23 10:07:00 Result Name Value Comment Phone Call Monitoring Consent Agreed to continue call Phone Verification Patient Information Full name, street address and date of verified Program Enrollment Provides verbal consent for enrollment [facility] Program Enrollment Verbally agreed to receive [facility] services [facility] Written Consent Written consent obtained [facility] Verbal Consent By Self 12/18/22 10:00:00 Result Name Value Comment HIPPA Verified Type of Contact Telephone CM Preferred Spoken Language [place]an CM Preferred Written Language Zimbabwean Preferred Communication Mode Verbal Ability to Read/Write Able to read, Able to write Best Time to Visit or Contact 10-1 pm Best Day to Visit or Contact Thursday, Thursday, Appointment Reminders Phone Preferred Way to Send PHI Standard mail Able to Read Zimbabwean Able to read Zimbabwean Learning Style Pref Patient None Learning Style Pref Parent/Guardian None Teaching Method Printed materials Barriers to Learning None evident Cognitive Deficit No Response to Current Year Correct Response to Current Month Correct Response to Current Time C (more content not included)... Normal [facility] Ambulatory Visit Summaryon 0 09-09-2024 Ambulatory Visit Summary Ambulatory Visit Summary JERRICA ROCK :1935 Visit Date:09/09/2024 Ambulatory Visit Instructions Your Diagnosis Dyssynergic defecation Irregular bowel habits GERD (gastroesophageal reflux disease) History of colon polyps These Are Your Goals Hyperglycemia:Maintain Hem A1C below 5.9% 09/10/2022 - Progressing Interventions: Complete lab work as ordered - Progressing Eat a balanced diet - Progressing Maintain an active lifestyle - Progressing Review education material - Done Hypertension:Maintain BP within a therapeutic range Interventions: Maintain an active lifestyle - Progressing Monitor BP as needed - Progressing Monitor sodium intake - Progressing Review education material - Done Hyperlipidemia: Maintain lipid profile within a therapeutic range - Progressing Interventions: Avoid foods high in saturated fats/fried foods - Progressing Complete lab work as ordered - Progressing Increase fruits and vegetables in diet - Progressing Maintain an active lifestyle - Progressing Review education material - Done Vitamin D deficiency:Maintain therapeutic levels - Progressing Interventions: Complete lab work as ordered - Progressing Monitor for symptoms(Bone/muscle pain, frequent falls and broken bones by minor injuries - Progressing Perform low impact exercises daily - Progressing Review education material - Done Your Care Team Attending Physician - Jt CHERY, Radha Kim Primary Care Physician - WAYNE CHERY, Yelena Howard This Is Your Medications List Contact prescribing physician if questions or concerns alendronate (Fosamax 70 mg Tab) aspirin (aspirin 81 mg Oral EC Tab) calcium-vitamin D (Calcium Plus Vitamin D3) cholecalciferol (Vitamin D3 1000 intl units (25 mcg) Tab) colesevelam (Welchol 625 mg Tab) diphenhydrAMINE (Benadryl) hydrochlorothiazide-triamter francesca (hydrochlorothiazide-triamte iris 25 mg-37.5 mg Tab) letrozole (letrozole 2.5 mg Tab) loperamide metoprolol (Toprol XL 50 mg Tab-ER) pantoprazole (Pantoprazole [address] Tab) psyllium (Metamucil) Procedures Performed Lumpectomy of right breast (04/15/2023), Cystoscopic laser lithotripsy of ureteric calculus (09/05/2022), Cystoscopic insertion of ureteric stent (07/23/2022), Injection of nerve root of lumbar spine using fluoroscopic guidance (03/19/2022), Nerve blocks in lower limb (11/13/2021), Injection of nerve root of lumbar spine using fluoroscopic guidance (10/30/2021), Injection of facet joint using fluoroscopic guidance (12/26/2020), Esophagogastroduodenoscopy (11/07/2020), Knee replacement (07/09/2020), Colonoscopy (03/30/2015), Block, Cataract extraction and implantation of intraocular lens. Discharge Vitals Heart Rate (Peripheral) 75 Respiratory Rate 16 Blood Pressure 110/70 Height 162 cm Height 64 in What to do next Scheduled Follow-Up Appointments Thursday 10:40 AM EDT With: Jo CHERY, Yelena Seo Where: [facility] [place] [address] [place] [address]- Thursday 10:00 AM EDT With: Yelena MICHELLE MD Where: [facility] [address] [place] [address]- Thursday 2:30 PM EDT With: Where: [facility] [address] [place] [address]- Thursday 11:15 AM EDT With: Edmond Vidal PA-C Where: [facility] Thursday 10:40 AM EDT With: Sandoval CHERY, Regina He Where: [facility] Medications What How Much When Why Instructions Unchanged alendronate (Fosamax 70 mg Tab) 1 Tablets By Mouth Every 7 days MGUS (monoclonal gammopathy of unknown significance) HX: breast cancer Osteopenia Take 1 tablet once a week, with 6-8 oz plain water, at least 30 minutes before first food, beverage, or medication of the day. Remain in upright position for at least 30 min. after taking tablet. Contact prescribing physician if questions or concerns Unchanged aspirin (aspirin 81 mg Oral EC Tab) 1 Tablets By Mouth Every day Contact prescribing physician if questions or concerns Unchanged calcium-vitamin D (Calcium Plus Vitamin D3) 1 tab By Mouth 2 times a day Contact prescribing physician if questions or concerns Unchanged cholecalciferol (Vitamin D3 1000 intl units (25 mcg) Tab) 1 Tablets By Mouth Every day Contact prescribing physician if questions or concerns Unchanged colesevelam (Welchol 625 mg Tab) 3 Tablets By Mouth 2 times a day Dyssynergic defecation Irregular bowel habits GERD (gastroesophageal reflux disease) History of colon polyps Contact prescribing physician if questions or concerns Unchanged diphenhydrAMINE (Benadryl) 25 Milligram By Mouth Once a day (at bedtime) takes OTC rx Contact prescribing physician if questions or concerns Unchanged hydrochlorothiazide-triamter francesca (hydrochlorothiazide-triamte iris 25 mg-37.5 (more content not included)... Normal [facility] Gastroenterology Office/Clin ic Noteon 09-09-2024 Gastroenterology Office/Clinic Note Gastroenterology Office/Clinic Note Chief Complaint 8 week follow up HPI Staff EST, 88 year old female who presents today for a 8 week follow up. Bowels were moving well until about 3 weeks ago. She states it takes a lot of effort to have a BM She is having anal leakage even when she is constipated Last visit w/ Dr Waters History of Present Illness pt has issues with bowels for ages pt was taking Imodium as needed bad urge and might have issues with urge not going away greasy burger - spent all night in the bathroom Assessment/Plan 1. 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 Irregular bowel habits (R19.8: Other specified symptoms and signs involving the digestive system and abdomen) 3. GERD (gastroesophageal reflux disease) (K21.9: Gastro-esophageal reflux disease without esophagitis) 4. History of colon polyps (Z86.0100: Personal history of colon polyps, unspecified) Will start WelChol 1875 mg twice daily since symptoms are likely secondary to bile acid diarrhea If she does not respond, we will plan to start a course of rifaximin versus treat with pancreatic enzymes if stool elastase is low Might benefit from neuromodulators and low FODMAP diet in the future Continue PPI for now but might stop in the future since patient does not have significant symptoms No repeat colonoscopy per Dr. Gasca recommendations the past EGD w/ Dr Ga 11/07/20 Impression and Plan Normal EGD, the previously seen gastric ulcer has resolved completely Colonoscopy w/ Dr Ga 01/13/20 Impression and Plan 1. Flat polyp, 10 mm, in the ascending, with a mucous cap, removed completely with hot snare after submucosal lifting, 1 clip placed at the polypectomy site 2. Sessile polyp, 5 mmt, in the ascending, removed completely with cold snare 3. Sessile polyp, 5 mm, in the descending, removed completely with cold snare 4. Small nonbleeding internal hemorrhoids 5. Moderate diverticular disease throughout the colon Recommendations: Repeat colonoscopy:: None, Pending pathology results. Final Diagnosis (Verified) A: GASTRIC BODY ULCER, BIOPSY: ??? GASTRIC ULCER WITH MODERATE CHRONIC ACTIVE INFLAMMATION AND REGENERATIVE CHANGES. ??? NO INTESTINAL METAPLASIA OR DYSPLASIA. ??? NO H. PYLORI MICROORGANISMS IDENTIFIED WITH IMMUNOSTAIN. B: STOMACH, BIOPSY: ??? GASTRIC MUCOSA WITH MILD CHRONIC INFLAMMATION AND REGENERATIVE CHANGES. C: RECTUM, BIOPSY: ??? COLONIC MUCOSA WITHIN NORMAL LIMITS. D: ASCENDING COLON, BIOPSY: ??? COLONIC MUCOSA WITHIN NORMAL LIMITS. E: POLYPS, ASCENDING COLON, POLYPECTOMY: ??? TUBULAR ADENOMA. ??? HYPERPLASTIC POLYP. F. DESCENDING COLON POLYP, POLYPECTOMY: ??? TUBULAR ADENOMA. Review of Systems PHQ Score Initial Depression Screen Score: 0 SCORE All systems reviewed, negative except as mentioned above Physical Exam Vitals & Measurements HR: 75(Peripheral) RR: 16 BP: 110/70 HT: 64 in HT: 162 cm I have reviewed HPI staff note, most recent labs and imaging, I agree with the above documentation with the following additions/exceptions : used to have 1-2 BMs a day still with leakage now with difficulties evacuating stool General: alert, no acute distress HEENT: atraumatic normocephalic Cardiovascular: regular rate and rhythm, normal peripheral perfusion Respiratory: Lungs CTA, respirations non labored Extremities: no deformity, no trauma Abdomen: Benign, soft, nontender nondistended Assessment/Plan 1. 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 Irregular bowel habits (R19.8: Other specified symptoms and signs involving the digestive system and abdomen) 3. GERD (gastroesophageal reflux disease) (K21.9: Gastro-esophageal reflux disease without esophagitis) 4. History of colon polyps (Z86.0100: Personal history of colon polyps, unspecified) Continue all: 1875 mg twice daily Advised to increase the frequency of Imodium to 3 times a day before meals Advised to go to [facility] for biofeedback therapy but the patient declined Might benefit from rifaximin in the future or Viberzi Follow-up No qualifying data available Problem List/Past Medical History Ongoing Back pain, 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 Breast cancer, right Chronic kidney disease, stage 3a Cystocele with rectocele DDD (degenerative disc disease), lumbar Dyssynergic defecation Edema Encounter for follow-up surveillance of breast cancer Fecal incontinence GERD (gastroesophageal reflux disease) Heart murmur History of colon polyps History of gastric ulcer History of kidney stones Hoarseness Hyperglycemia Hyperlipidemia Hypertension Long-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 Macular degeneration Memory loss Osteoarthritis of knees, bilateral Osteopenia Recurrent UTI Skin lesion of right leg Tachycardia Tortuous aorta Unsteadiness Urge incontinence Vitamin D deficiency His (more content not included)... Normal [facility] Comment on above: Result Comment: Elec tronically Signed By: Jt CHERY, Radha Kim\\.br\\Date and Time Signed: 09/09/24 10:17 EST Ambulatory Visit Summaryon 0 08-29-2024 Ambulatory Visit Summary Ambulatory Visit Summary JERRICA ROCK Jo :1935 Visit Date:08/29/2024 Ambulatory Visit Instructions Your Diagnosis MGUS (monoclonal gammopathy of unknown significance) These Are Your Goals Hyperglycemia:Maintain Hem A1C below 5.9% 09/10/2022 - Progressing Interventions: Complete lab work as ordered - Progressing Eat a balanced diet - Progressing Maintain an active lifestyle - Progressing Review education material - Done Hypertension:Maintain BP within a therapeutic range - Progressing Interventions: Maintain an active lifestyle - Progressing Monitor BP as needed - Progressing Monitor sodium intake - Progressing Review education material - Done Hyperlipidemia: Maintain lipid profile within a therapeutic range - Progressing Interventions: Avoid foods high in saturated fats/fried foods - Progressing Complete lab work as ordered - Progressing Increase fruits and vegetables in diet - Progressing Maintain an active lifestyle - Progressing Review education material - Done Vitamin D deficiency:Maintain therapeutic levels - Progressing Interventions: Complete lab work as ordered - Progressing Monitor for symptoms(Bone/muscle pain, frequent falls and broken bones by minor injuries - Progressing Perform low impact exercises daily - Progressing Review education material - Done Your Care Team Attending Physician - Sandoval CHERY, Regina eH Primary Care Physician - Yelena MICHELLE MD Referring Physician - Sandoval CHERY, Regina He This Is Your Medications List aspirin (aspirin 81 mg Oral EC Tab) calcium-vitamin D (Calcium Plus Vitamin D3) cholecalciferol (Vitamin D3 1000 intl units (25 mcg) Tab) colesevelam (Welchol 625 mg Tab) diphenhydrAMINE (Benadryl) hydrochlorothiazide-triamter francesca (hydrochlorothiazide-triamte iris 25 mg-37.5 mg Tab) letrozole (letrozole 2.5 mg Tab) loperamide metoprolol (Toprol XL 50 mg Tab-ER) multivitamin with minerals (PreserVision AREDS 2 oral capsule) pantoprazole (Pantoprazole [address] Tab) psyllium (Metamucil) Procedures Performed Lumpectomy of right breast (04/15/2023), Cystoscopic laser lithotripsy of ureteric calculus (09/05/2022), Cystoscopic insertion of ureteric stent (07/23/2022), Injection of nerve root of lumbar spine using fluoroscopic guidance (03/19/2022), Nerve blocks in lower limb (11/13/2021), Injection of nerve root of lumbar spine using fluoroscopic guidance (10/30/2021), Injection of facet joint using fluoroscopic guidance (12/26/2020), Esophagogastroduodenoscopy (11/07/2020), Knee replacement (07/09/2020), Colonoscopy (03/30/2015), Block, Cataract extraction and implantation of intraocular lens. Discharge Vitals Temperature (Oral) 36.4 ???C Heart Rate (Peripheral) 74 Respiratory Rate 16 Blood Pressure 123/75 Height 162.0 cm Weight 82.1 kg Weight 82.1 kg BMI 31.28 What to do next Scheduled Follow-Up Appointments 2024 9:45 AM EST With: Jt CHERY, Radha Kim Where: [facility] [address] [place] [address] [place] [address]- Thursday 10:40 AM EDT With: Jo CHERY, Yelena Seo Where: [facility] [place] [address], [address] [place] [address]- Thursday 10:00 AM EDT With: Yelena MICHELLE MD Where: [facility] [address], [place] [address]- Thursday 2:30 PM EDT With: Where: [facility] [address], [place] [address]- Thursday 11:15 AM EDT With: Edmond Vidal PA-C Where: [facility] You Need to Complete the Following *Follow up with Dr. Hernandez in 6 m.o (Feb 2025)-Complete blood work 2 weeks prior to apt *Screening Mamm in January 2025 *Bone Density Screening April 2025 *Continue Femara daily, Calcium w/ Vit. D twice a day, Vit D 1000 units daily *Start Alendronate (Fosamax) 70 mg once a week(for bone strength) *Ask PCP about sleep study to rule out sleep apnea (symptoms of falling asleep sitting up) Medications What How Much When Why Instructions Unchanged aspirin (aspirin 81 mg Oral EC Tab) 1 Tablets By Mouth Every day Unchanged calcium-vitamin D (Calcium Plus Vitamin D3) 1 tab By Mouth 2 times a day Unchanged cholecalciferol (Vitamin D3 1000 intl units (25 mcg) Tab) 1 Tablets By Mouth Every day Unchanged colesevelam (Welchol 625 mg Tab) 3 Tablets By Mouth 2 times a day Dyssynergic defecation Irregular bowel habits GERD (gastroesophageal reflux disease) History of colon polyps Unchanged diphenhydrAMINE (Benadryl) 25 Milligram By Mouth Once a day (at bedtime) takes OTC rx Unchanged hydrochlorothiazide-triamter francesca (hydrochlorothiazide-triamte iris 25 mg-37.5 mg Tab) 1 Tablets By Mouth Every day as needed for leg swelling Edema Unchanged letrozol (more content not included)... Normal [facility] Ambulatory Visit Summary Ambulatory Visit Summary JERRICA ROCK :1935 Visit Date:08/29/2024 Ambulatory Visit Instructions Your Diagnosis MGUS (monoclonal gammopathy of unknown significance) These Are Your Goals Hyperglycemia:Maintain Hem A1C below 5.9% 09/10/2022 - Progressing Interventions: Complete lab work as ordered - Progressing Eat a balanced diet - Progressing Maintain an active lifestyle - Progressing Review education material - Done Hypertension:Maintain BP within a therapeutic range - Progressing Interventions: Maintain an active lifestyle - Progressing Monitor BP as needed - Progressing Monitor sodium intake - Progressing Review education material - Done Hyperlipidemia: Maintain lipid profile within a therapeutic range - Progressing Interventions: Avoid foods high in saturated fats/fried foods - Progressing Complete lab work as ordered - Progressing Increase fruits and vegetables in diet - Progressing Maintain an active lifestyle - Progressing Review education material - Done Vitamin D deficiency:Maintain therapeutic levels - Progressing Interventions: Complete lab work as ordered - Progressing Monitor for symptoms(Bone/muscle pain, frequent falls and broken bones by minor injuries - Progressing Perform low impact exercises daily - Progressing Review education material - Done Your Care Team Attending Physician - Sandoval CHERY, Regina He Primary Care Physician - Yelena MICHELLE MD Referring Physician - Sandoval CHERY, Regina He This Is Your Medications List aspirin (aspirin 81 mg Oral EC Tab) calcium-vitamin D (Calcium Plus Vitamin D3) cholecalciferol (Vitamin D3 1000 intl units (25 mcg) Tab) colesevelam (Welchol 625 mg Tab) diphenhydrAMINE (Benadryl) hydrochlorothiazide-triamter francesca (hydrochlorothiazide-triamte iris 25 mg-37.5 mg Tab) letrozole (letrozole 2.5 mg Tab) loperamide metoprolol (Toprol XL 50 mg Tab-ER) multivitamin with minerals (PreserVision AREDS 2 oral capsule) pantoprazole (Pantoprazole [address] Tab) psyllium (Metamucil) Procedures Performed Lumpectomy of right breast (04/15/2023), Cystoscopic laser lithotripsy of ureteric calculus (09/05/2022), Cystoscopic insertion of ureteric stent (07/23/2022), Injection of nerve root of lumbar spine using fluoroscopic guidance (03/19/2022), Nerve blocks in lower limb (11/13/2021), Injection of nerve root of lumbar spine using fluoroscopic guidance (10/30/2021), Injection of facet joint using fluoroscopic guidance (12/26/2020), Esophagogastroduodenoscopy (11/07/2020), Knee replacement (07/09/2020), Colonoscopy (03/30/2015), Block, Cataract extraction and implantation of intraocular lens. Discharge Vitals Temperature (Oral) 36.4 ???C Heart Rate (Peripheral) 74 Respiratory Rate 16 Blood Pressure 123/75 Height 162.0 cm Weight 82.1 kg Weight 82.1 kg BMI 31.28 What to do next Scheduled Follow-Up Appointments 2024 9:45 AM EST With: Jt CHERY, Radha Kim Where: [facility] [address] [facility] [address] [place] [address]- Thursday 10:40 AM EDT With: Yelena Osorio MD Where: [facility] [place] [address], [address] [place] [address]- Thursday 10:00 AM EDT With: Yelena MICHELLE MD Where: [facility] [address] [place] [address]- Thursday 2:30 PM EDT With: Where: [facility] [address] [place] [address]- Thursday 11:15 AM EDT With: Young GALVAN, Edmond Rojo Where: [facility] You Need to Complete the Following Screening Mamm in January 2025 Cont. Femara, Actonel, Calcium w/ vit D, & Vit. D 1000 unit Follow up w/ Dr. Hernandez in 6 m.o-Please complete blood work 2 weeks prior Medications What How Much When Why Instructions Unchanged aspirin (aspirin 81 mg Oral EC Tab) 1 Tablets By Mouth Every day Unchanged calcium-vitamin D (Calcium Plus Vitamin D3) 1 tab By Mouth 2 times a day Unchanged cholecalciferol (Vitamin D3 1000 intl units (25 mcg) Tab) 1 Tablets By Mouth Every day Unchanged colesevelam (Welchol 625 mg Tab) 3 Tablets By Mouth 2 times a day Dyssynergic defecation Irregular bowel habits GERD (gastroesophageal reflux disease) History of colon polyps Unchanged diphenhydrAMINE (Benadryl) 25 Milligram By Mouth Once a day (at bedtime) takes OTC rx Unchanged hydrochlorothiazide-triamter francesca (hydrochlorothiazide-triamte iris 25 mg-37.5 mg Tab) 1 Tablets By Mouth Every day as needed for leg swelling Edema Unchanged letrozole (letrozole 2.5 mg Tab) 1 Tablets By Mouth Every day Duration: 90 Days Unchanged loperamide As needed for as needed for loose stool Unchanged metoprolol (Toprol XL 50 mg Tab-ER) 1 Tablets By Mouth Every day Unchanged multivitami (more content not included)... [facility] Monoclonal Gammopathy of Undetermined Significance Monoclonal gammopathy of undetermined significance (MGUS) is a condition in which there is too much of a protein called monoclonal protein, or M protein, in the blood. MGUS can cause you to have too many cells in your blood and not enough space for healthy cells. This condition may not have any symptoms, but it may increase your risk of developing multiple myeloma or other blood disorders in the future. What are the causes? The cause of this condition is not known. Genetics and the environment may play a role. What increases the risk? You are more likely to develop this condition if: ??? You are . ??? You are age 50 or older. ??? You are male. ??? You have an autoimmune disease. ??? You have been exposed to radiation. ??? You have a family history of MGUS. What are the signs or symptoms? There are usually no symptoms of this condition. In rare cases, some people may have: ??? Numbness or tingling in the hands, lower legs, or feet. ??? Bone problems. ??? Frequent infections. How is this diagnosed? This condition may be diagnosed with tests that check for the M protein, such as: ??? A blood test. ??? A urine test. How is this treated? Treatment may involve monitoring your condition. This may include: ??? Having regular exams. This will allow your health care provider to monitor your health. ??? Having tests done regularly, such as: ? Blood tests to check for M protein in your body. ? Imaging tests, such as a CT scan. ? A bone marrow biopsy. This test involves taking a sample of bone marrow from your body so it can be checked under a microscope. Follow these instructions at home: ??? Take xzqu-ymk-ecsvhwe and prescription medicines only as told by your health care provider. ??? Keep all follow-up visits. Where to find more information ??? International Myeloma Foundation: myeloma.org Contact a health care provider if: ??? You have trouble swallowing. ??? You have pain in your back or ribs. ??? You have numbness or tingling in your hands, lower legs, or feet. ??? You have a fever. ??? You are bruising easily. Get help right away if: ??? You break a bone. ??? You have trouble breathing. Summary ??? Monoclonal gammopathy of undetermined significance (MGUS) is a condition in which there is too much of a protein called monoclonal protein, or M protein, in the blood. ??? This condition may be diagnosed with a blood test that checks for M protein. ??? Treatment for this condition may involve having tests done regularly. Tests may include blood tests, imaging tests, and a bone marrow biopsy. This information is not intended to replace advice given to you by your health care provider. Make sure you discuss any questions you have with your health care provider. Document Revised: 08/20/2022 Document Reviewed: 08/20/2022 [employer] Patient Education ? 2023 [employer] alendronate (a WOODY sienna joanne) Binosto Fosamax What is the most important information I should know about alendronate? You should not take alendronate if you have problems with your esophagus, or low levels of calcium in your blood. Do not take alendronate if you cannot sit upright or stand for at least 30 minutes after taking the medicine. Alendronate can cause serious problems in the stomach or esophagus. Stop using alendronate and call your doctor at once if you have chest pain, new or worsening heartburn, or pain when swallowing. Also call your doctor if you have muscle spasms, numbness or tingling (in hands and feet or around the mouth), new or unusual hip pain, or severe pain in your joints, bones, or muscles. What is alendronate? Alendronate is used to treat osteoporosis caused by menopause, steroid use, or gonadal failure. This medicine is for use when you have a high risk of bone fracture due to osteoporosis. Alendronate is also used to treat Paget's disease of bone. Alendronate may also be used for purposes not listed in this medication guide. What should I discuss with my healthcare provider before taking alendronate? You should not take alendronate if you are allergic to it, or if you have: ? low levels of calcium in your blood (hypocalcemia); or ??? problems with the muscles in your esophagus (the tube that connects your mouth and stomach). Do not take alendronate if you cannot sit upright or stand for at least 30 minutes. Alendronate can cause serious problems in the stomach or esophagus. You must stay upright for at least 30 minutes after taking this medicine. Tell your doctor if you have ever had: ? trouble swallowing; ??? problems with your stomach or digestion; ??? hypocalcemia; ??? a dental problem (you may need a dental exam before you begin taking alendronate); ??? kidney disease; or ??? any condition that makes it hard for your body to absorb nutrients from fo (more content not included)... Normal [facility] Monoclonal Gammopathy of Undetermined Significance Monoclonal gammopathy of undetermined significance (MGUS) is a condition in which there is too much of a protein called monoclonal protein, or M protein, in the blood. MGUS can cause you to have too many cells in your blood and not enough space for healthy cells. This condition may not have any symptoms, but it may increase your risk of developing multiple myeloma or other blood disorders in the future. What are the causes? The cause of this condition is not known. Genetics and the environment may play a role. What increases the risk? You are more likely to develop this condition if: ??? You are . ??? You are age 50 or older. ??? You are male. ??? You have an autoimmune disease. ??? You have been exposed to radiation. ??? You have a family history of MGUS. What are the signs or symptoms? There are usually no symptoms of this condition. In rare cases, some people may have: ??? Numbness or tingling in the hands, lower legs, or feet. ??? Bone problems. ??? Frequent infections. How is this diagnosed? This condition may be diagnosed with tests that check for the M protein, such as: ??? A blood test. ??? A urine test. How is this treated? Treatment may involve monitoring your condition. This may include: ??? Having regular exams. This will allow your health care provider to monitor your health. ??? Having tests done regularly, such as: ? Blood tests to check for M protein in your body. ? Imaging tests, such as a CT scan. ? A bone marrow biopsy. This test involves taking a sample of bone marrow from your body so it can be checked under a microscope. Follow these instructions at home: ??? Take arkh-ktc-iohhjza and prescription medicines only as told by your health care provider. ??? Keep all follow-up visits. Where to find more information ??? International Myeloma Foundation: myeloma.org Contact a health care provider if: ??? You have trouble swallowing. ??? You have pain in your back or ribs. ??? You have numbness or tingling in your hands, lower legs, or feet. ??? You have a fever. ??? You are bruising easily. Get help right away if: ??? You break a bone. ??? You have trouble breathing. Summary ??? Monoclonal gammopathy of undetermined significance (MGUS) is a condition in which there is too much of a protein called monoclonal protein, or M protein, in the blood. ??? This condition may be diagnosed with a blood test that checks for M protein. ??? Treatment for this condition may involve having tests done regularly. Tests may include blood tests, imaging tests, and a bone marrow biopsy. This information is not intended to replace advice given to you by your health care provider. Make sure you discuss any questions you have with your health care provider. Document Revised: 08/20/2022 Document Reviewed: 08/20/2022 [employer] Patient Education ? 2023 [employer] Normal [facility] Free K+L Lt Chains,Natalie,Son Immunoglobulin light chains.kappa.free (S) [Mass/Vol] 65.4 mg/L High 3.3-19.4 [facility] Comment on above: Performed By: #### 2 [id number] #### [facility] [address] [place] [address] Immunoglobulin light chains.kappa.free/I mmunoglobulin light chains.lambda.free (S) [Mass ratio] 2.06 High 0.26-1.65 [facility] Comment on above: Result Comment: Perf ormed at: [facility] [address] [id number] PhD Daniel Potter Performed By: #### 2 [id number] #### [facility] [address] [place] [address] Immunoglobulin light chains.lambda.free [Mass/Vol] 31.8 mg/L High 5.7-26.3 [facility] Comment on above: Performed By: #### 2 [id number] #### [facility] [address] [place] [address] YAJAIRA and PE, Serumon 08-26-19 25 Albumin [Mass/Vol] 3.3 g/dL Invalid Interpretation Code 2.9-4.4 [facility] Comment on above: Performed By: #### 1 [id number] #### [facility] [address] [place] [address] Albumin/Globulin [Mass ratio] 0.9 {ratio} Invalid Interpretation Code 0.7-1.7 [facility] Comment on above: Performed By: #### 1 [id number] #### [facility] [address] [place] [address] Alpha 1 globulin Elph [Mass/Vol] 0.3 g/dL Invalid Interpretation Code 0.0-0.4 [facility] Comment on above: Performed By: #### 1 [id number] #### [facility] [address] [place] [address] Alpha 2 globulin Elph [Mass/Vol] 1.0 g/dL Invalid Interpretation Code 0.4-1.0 [facility] Comment on above: Performed By: #### 1 [id number] #### [facility] [address] [place] [address] Beta globulin Elph [Mass/Vol] 1.3 g/dL Invalid Interpretation Code 0.7-1.3 [facility] Comment on above: Performed By: #### 1 [id number] #### [facility] [address] [place] [address] Gamma globulin Elph [Mass/Vol] 1.4 g/dL Invalid Interpretation Code 0.4-1.8 [facility] Comment on above: Performed By: #### 1 [id number] #### [facility] [address] [place] [address] Globulin (S) [Mass/Vol] 4.0 g/dL High 2.2-3.9 [facility] Comment on above: Performed By: #### 1 [id number] #### [facility] [address] [place] [address] IgA [Mass/Vol] 499 mg/dL High 64-422 [facility] Comment on above: Performed By: #### 1 [id number] #### [facility] [address] [place] [address] IgG [Mass/Vol] 1356 mg/dL Invalid Interpretation Code 586-1602 [facility] Comment on above: Performed By: #### 1 [id number] #### [facility] [address] [place] [address] IgM [Mass/Vol] 59 mg/dL Invalid Interpretation Code 26-217 [facility] Comment on above: Performed By: #### 1 [id number] #### [facility] [address] [place] [address] Interpretation IEP [Interp] Comment Abnormal [facility] Comment on above: Result Comment: 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 PLEASE NOTE: Samples from patients receiving DARZALEX(R) (daratumumab) or SARCLISA(R)(isatuximab-irfc) treatment can appear as an IgG kappa and mask a complete response (CR). If this patient is receiving these therapies, this YAJAIRA assay interference can be removed by ordering test number 461126- Immunofixation, Daratumumab-Specific, Serum or [id number]- Immunofixation, Isatuximab-Specific, Serum and submitting a new sample for testing or by calling the lab to add this test to the current sample. Performed By: #### 1 [id number] #### [facility] [address] [place] [address] Laboratory comment Francisco (Report) Comment Invalid Interpretation Code [facility] Comment on above: Result Comment: Prot ein electrophoresis scan will follow via computer, mail, or newscast director delivery. Performed at: [address] [id number] PhD Daniel Potter Performed By: #### 1 [id number] #### [facility] [address] [place] [address] Protein [Mass/Vol] 7.3 g/dL Invalid Interpretation Code 6.0-8.5 [facility] Comment on above: Performed By: #### 1 [id number] #### [facility] [address] [place] [address] Protein.monoclonal Elph [Mass/Vol] 0.7 gm/dL High Not Observed [facility] Comment on above: Performed By: #### 1 [id number] #### [facility] [address] [place] [address] CBC w/ Auto Diffon 5 Basophils/100 WBC (Bld) 0.7 % Normal 0.0-2.0 [facility] Comment on above: Performed By: #### 2 [id number] #### [facility] [address] [place] [address] Basophils/Leukocyte s Auto (Bld) [Pure # fraction] 0.1 E9/L Normal 0.0-0.2 [facility] Comment on above: Performed By: #### 2 [id number] #### [facility] [address] [place] [address] Eosinophils (Bld) [#/Vol] 0.3 E9/L Normal 0.0-0.5 [facility] Comment on above: Performed By: #### 2 [id number] #### [facility] [address] [place] [address] Eosinophils/100 WBC (Bld) 2.9 % Normal 0.0-8.0 [facility] Comment on above: Performed By: #### 2 [id number] #### [facility] [address] [place] [address] Erythrocyte distribution width (RBC) [Ratio] 14.6 % High 10.9-14.2 [facility] Comment on above: Performed By: #### 2 [id number] #### [facility] [address] [place] [address] Hematocrit (Bld) [Volume fraction] 44.1 % Normal 34.0-46.0 [facility] Comment on above: Performed By: #### 2 [id number] #### [facility] [address] [place] [address] Hemoglobin (Bld) [Mass/Vol] 15.0 g/dL Normal 12.0-16.0 [facility] Comment on above: Performed By: #### 2 [id number] #### [facility] [address] [place] [address] Lymphocytes (Bld) [#/Vol] 2.8 E9/L Normal 1.0-4.0 [facility] Comment on above: Performed By: #### 2 [id number] #### [facility] [address] [place] [address] Lymphocytes/100 WBC (Bld) 26.7 % Normal 14.0-50.0 [facility] Comment on above: Performed By: #### 2 [id number] #### [facility] [address] [place] [address] [place] [address] MCH (RBC) [Entitic mass] 29.2 pg Normal 27.0-34.0 [facility] Comment on above: Performed By: #### 2 [id number] #### [facility] [address] [place] [address] MCHC (RBC) [Mass/Vol] 34.1 g/dL Normal 31.4-36.0 [facility] Comment on above: Performed By: #### 2 [id number] #### [facility] [address] [place] [address] MCV (RBC) [Entitic vol] 85.7 fL Normal 80.0-100.0 [facility] Comment on above: Performed By: #### 2 [id number] #### [facility] [address] [place] [address] Monocytes (Bld) [#/Vol] 1.0 E9/L Normal 0.2-1.0 [facility] Comment on above: Performed By: #### 2 [id number] #### [facility] [address] [place] [address] Neutrophils (Bld) [#/Vol] 6.2 E9/L Normal 2.0-7.5 [facility] Comment on above: Performed By: #### 2 [id number] #### [facility] [address] [place] [address] Neutrophils/100 WBC (Bld) 60.3 % Normal 36.0-75.0 [facility] Comment on above: Performed By: #### 2 [id number] #### [facility] [address] [place] [address] Platelet 272.0 E9/L Normal 150.0-500. 0 [facility] Comment on above: Performed By: #### 2 [id number] #### [facility] [address] [place] [address] Platelet mean volume (Bld) [Entitic vol] 10.3 fL Normal 6.4-10.8 [facility] Comment on above: Performed By: #### 2 [id number] #### [facility] [address] [place] [address] RBC (Bld) [#/Vol] 5.1 E12/L Normal 4.3-5.9 [facility] Comment on above: Performed By: #### 2 [id number] #### [facility] [address] [place] [address] WBC corrected for nucl RBC Auto (Bld) [#/Vol] 10.3 E9/L Normal 4.0-11.0 [facility] Comment on above: Performed By: #### 2 [id number] #### [facility] [address] [place] [address] CHEMISTRYOrdered By: SYSTEM SYSTEM on 08-24-2024 Albumin [Mass/Vol] 4.1 g/dL Normal 3.3 - 5.0 gm/dL Rem[facility] Chem Albumin/Globulin [Mass ratio] 1.1 {ratio} Normal 1.1 - 2.2 [facility] Chem ALP [Catalytic activity/Vol] 128 [iU]/d High 21 - 98 Int._Unit/ L [facility] Chem ALT No additional P-5'-P [Catalytic activity/Vol] 13 [iU]/d Normal 6 - 46 Int._Unit/ L [facility] Chem Anion gap [Moles/Vol] 13 mmol/L Normal 6 - 16 mEq/L [facility] Chem AST [Catalytic activity/Vol] 19 [iU]/d Normal 5 - 43 Int._Unit/ L [facility] Chem Bilirubin [Mass/Vol] 0.8 mg/dL Normal 0.0 - 1.1 mg/dL [facility] Chem Calcium [Mass/Vol] 10.1 mg/dL Normal 8.9 - 11. 1 mg/dL [facility] Chloride [Moles/Vol] 107 mmol/L Normal 101 - 111 mmol/L [facility] Chem CO2 [Moles/Vol] 24 mmol/L Normal 21 - 31 mmol/L [facility] Creatinine [Mass/Vol] 1.1 mg/dL Normal 0.5 - 1.3 mg/dL [facility] Chem eGFR 48 mL/min/1.73 m2 Low >=59mL/min /1.73 m2 [facility] Chem Globulin (S) [Mass/Vol] 3.8 g/dL Normal 1.4 - 4.0 gm/dL [facility] Glucose [Mass/Vol] 119 mg/dL Normal 55 - 199 mg/dL [facility] Chem Potassium [Moles/Vol] 3.8 mmol/L Normal 3.5 - 5.3 mmol/L [facility] Chem Protein [Mass/Vol] 7.9 g/dL High 6.0 - 7.8 gm/dL [facility] Chem Sodium [Moles/Vol] 140 mmol/L Normal 135 - 145 mmol/L [facility] Chem Urea nitrogen [Mass/Vol] 20 mg/dL Normal 5 - 21 mg/dL [facility] Chem Urea nitrogen/Creatinine [Mass ratio] 18 mg/mg Normal 10 - 20 [facility] Chem CMPon 08-24-2024 Albumin [Mass/Vol] 4.1 g/dL Normal 3.3-5.0 [facility] Comment on above: Performed By: #### 2 [id number] #### [facility] [address] [place] [address] Albumin/Globulin (S) [Mass conc ratio] 1.1 Normal 1.1-2.2 [facility] Comment on above: Performed By: #### 2 [id number] #### [facility] [address] [place] [address] ALP [Catalytic activity/Vol] 128 Int._Unit/L High 21-98 [facility] Comment on above: Performed By: #### 2 [id number] #### [facility] [address] [place] [address] ALT No additional P-5'-P [Catalytic activity/Vol] 13 Int._Unit/L Normal 6-46 [facility] Comment on above: Performed By: #### 2 [id number] #### [facility] [address] [place] [address] Anion gap [Moles/Vol] 13 mmol/L Normal 6-16 [facility] Comment on above: Performed By: #### 2 [id number] #### [facility] [address] [place] [address] AST [Catalytic activity/Vol] 19 Int._Unit/L Normal 5-43 [facility] Comment on above: Performed By: #### 2 [id number] #### [facility] [address] [place] [address] Bilirubin [Mass/Vol] 0.8 mg/dL Normal 0.0-1.1 [facility] Comment on above: Performed By: #### 2 [id number] #### [facility] [address] [place] [address] Calcium [Mass/Vol] 10.1 mg/dL Normal 8.9-11.1 [facility] Comment on above: Performed By: #### 2 [id number] #### [facility] [address] [place] [address] Chloride [Moles/Vol] 107 mmol/L Normal 101-111 [facility] Comment on above: Performed By: #### 2 [id number] #### [facility] [address] [place] [address] CO2 [Moles/Vol] 24 mmol/L Normal 21-31 [facility] Comment on above: Performed By: #### 2 [id number] #### [facility] [address] [place] [address] Creatinine [Mass/Vol] 1.1 mg/dL Normal 0.5-1.3 [facility] Comment on above: Performed By: #### 2 [id number] #### [facility] [address] [place] [address] Globulin (S) [Mass/Vol] 3.8 g/dL Normal 1.4-4.0 [facility] Comment on above: Performed By: #### 2 [id number] #### [facility] [address] [place] [address] Glucose [Mass/Vol] 119 mg/dL Normal 55-199 [facility] Comment on above: Performed By: #### 2 [id number] #### [facility] [address] [place] [address] Potassium [Moles/Vol] 3.8 mmol/L Normal 3.5-5.3 [facility] Comment on above: Performed By: #### 2 [id number] #### [facility] [address] [place] [address] Protein [Mass/Vol] 7.9 g/dL High 6.0-7.8 [facility] Comment on above: Performed By: #### 2 [id number] #### [facility] [address] [place] [address] Sodium [Moles/Vol] 140 mmol/L Normal 135-145 [facility] Comment on above: Performed By: #### 2 [id number] #### [facility] [address] [place] [address] Urea nitrogen [Mass/Vol] 20 mg/dL Normal 5-21 [facility] Comment on above: Performed By: #### 2 [id number] #### [facility] [address] [place] [address] Urea nitrogen/Creatinine [Mass ratio] 18 No Units Normal 10-20 [facility] Comment on above: Performed By: #### 2 [id number] #### [facility] [address] [place] [address] HEMATOLOGYOrdered By: SYSTEM SYSTEM on 08-24-2024 Basophils/100 WBC (Bld) 0.7 % Normal 0.0 - 2.0 % [facility] Basophils/Leukocyte s Auto (Bld) [Pure # fraction] 0.1 E9/L Normal 0.0 - 0.2 E9/L [facility] Eosinophils (Bld) [#/Vol] 0.3 E9/L Normal 0.0 - 0.5 E9/L [facility] Eosinophils/100 WBC (Bld) 2.9 % Normal 0.0 - 8.0 % [facility] Erythrocyte distribution width (RBC) [Ratio] 14.6 % High 10.9 - 14.2 % [facility] Hematocrit (Bld) [Volume fraction] 44.1 % Normal 34.0 - 46.0 % [facility] Hemoglobin (Bld) [Mass/Vol] 15.0 g/dL Normal 12.0 - 16.0 gm/dL [facility] Lymphocytes (Bld) [#/Vol] 2.8 E9/L Normal 1.0 - 4.0 E9/L [facility] Lymphocytes/100 WBC (Bld) 26.7 % Normal 14.0 - 50.0 % [facility] MCH (RBC) [Entitic mass] 29.2 pg Normal 27.0 - 34.0 pg [facility] MCHC (RBC) [Mass/Vol] 34.1 g/dL Normal 31.4 - 36.0 gm/dL [facility] MCV (RBC) [Entitic vol] 85.7 fL Normal 80.0 - 100.0 fL [facility] Monocytes (Bld) [#/Vol] 1.0 E9/L Normal 0.2 - 1.0 E9/L [facility] Monocytes/100 WBC (Bld) 9.4 % Normal 4.0 - 14.0 % [facility] Neutrophils (Bld) [#/Vol] 6.2 E9/L Normal 2.0 - 7.5 E9/L [facility] Neutrophils/100 WBC (Bld) 60.3 % Normal 36.0 - 75.0 % [facility] Platelet 272.0 E9/L Normal 150.0 - 500.0 E9/L [facility] Platelet mean volume (Bld) [Entitic vol] 10.3 fL Normal 6.4 - 10.8 fL [facility] RBC (Bld) [#/Vol] 5.1 E12/L Normal 4.3 - 5.9 E12/L [facility] WBC corrected for nucl RBC Auto (Bld) [#/Vol] 10.3 E9/L Normal 4.0 - 11.0 E9/L [facility] eGFRon 08-24-2024 eGFR 48 mL/min/1.73 m2 Low >=59 [facility] Comment on above: Performed By: #### 1 [id number] #### [facility] [address] [place] [address] MR lumbar spine wo [facility] MR lumbar spine wo [facility] Main [address] [address] MRI Report Signed Patient: Jerrica Rock MR#: [id number] : 1935 Acct:[id number] Age/Sex: 88 / F ADM Date: 08/18/24 Loc: [facility] Room: Type: REG CLI Attending Dr: Matthew Bravo DO Copies to: Matthew Bravo DO Ordering Provider: Matthew Bravo DO Date of Service: 08/18/24 MR/MR lumbar spine wo con: M48.00 - Spinal stenosis, site unspecified MR lumbar spine wo con 08/18/2024 9:54 AM SIGNS AND SYMPTOMS: Chronic nonradiating low back pain with bilateral lower extremity weakness and heaviness PROTOCOL: Multiplanar multisequence MR images of the lumbar spine without IV contrast COMPARISON: 04/13/2023 FINDINGS: There is 3 mm of retrolisthesis of L2 upon L3. There is 3 mm of anterolisthesis of L3 upon L4. There is 5 mm of anterolisthesis of L4 upon L5. There is 4 mm of retrolisthesis of L5 upon S1. This is similar to the prior exam. There is preservation of vertebral body heights. There is severe disc height loss at L1-L2 and L5-S1 with moderate disc height loss throughout otherwise. There is Modic type II fatty endplate degenerative change at L1-L2, L3-L4, and L4-L5. There is accompanying Modic type I endplate edema at L3-L4 on the right. This extends into the right L4 pedicle and facet. Benign-appearing hemangiomas are present at T12 and L4. The conus terminates at the superior endplate of the L1 vertebral body level. No epidural or paraspinous fluid collection is appreciated. At T12-L1: There is endplate osteophyte formation with a focal right foraminal disc protrusion. There is facet hypertrophy right greater than left. There is mild spinal canal stenosis with moderate to severe right and mild left neural foraminal stenosis. This is similar to the prior exam. At L1-L2: There is a broad-based disc bulge with endplate osteophyte formation and facet hypertrophy. There is mild spinal canal stenosis with moderate bilateral neural foraminal narrowing. This is unchanged. At L2-L3: There is a broad-based disc bulge with facet hypertrophy and ligamentum flavum thickening. There is mild spinal canal stenosis with moderate bilateral neural foraminal narrowing. This is similar to the prior exam. At L3-L4: There is a circumferential disc bulge with facet hypertrophy, ligament flavum thickening, and a small right-sided facet effusion. There is mild spinal canal narrowing with moderate left and severe right neural foraminal stenosis. There is mass effect on the exiting right L3 nerve roots. This is similar to the prior exam. At L4-L5: There is a circumferential disc bulge with facet hypertrophy and ligament flavum thickening. There is mild to moderate spinal canal narrowing with moderate bilateral neural foraminal stenosis. This is similar to the prior exam. At L5-S1: There is a circumferential disc bulge with endplate osteophyte formation. There is facet hypertrophy. There is severe bilateral neural foraminal narrowing right greater than left with mass effect on the exiting L5 nerve roots bilaterally. This is similar to the prior exam. MR/MR lumbar spine wo con IMPRESSION: At L3-L4: There is a circumferential disc bulge with facet hypertrophy, ligament flavum thickening, and a small right-sided facet effusion. There is mild spinal canal narrowing with moderate left and severe right neural foraminal stenosis. There is mass effect on the exiting right L3 nerve roots. This is similar to the prior exam. At L5-S1: There is a circumferential disc bulge with endplate osteophyte formation. There is facet hypertrophy. There is severe bilateral neural foraminal narrowing right greater than left with mass effect on the exiting L5 nerve roots bilaterally. This is similar to the prior exam. Additional but lesser degrees of degenerative changes are noted throughout with multilevel listhesis. This is unchanged when compared to the prior exam. Impression dictated by: Tanika Isidro M.D.08/18/2024 3:41 PM Dictation Location: [place] [address] Transcribed By: [facility] 08/18/24 1541 Dictated By: Tanika Isidro II, MD 08/18/24 1525 Signed By: 08/18/24 1541 Normal [facility] Magnetic resonance imaging r eportOrdered By: Tanika Isidro on 08-18-2024 Study report [facility] [place] [address] MRI Report Signed Patient: Jerrica Rock MR#: [id number] : 1935 Acct:[id number] Age/Sex: 88 / F ADM Date: 5 Loc: [facility] Room: Type: REG CLI Attending Dr: Matthew Bravo DO Copies to: Matthew Bravo DO~ Ordering Provider: Matthew Bravo DO Date of Service: 08/18/24 MR/MR lumbar spine wo con: M48.00 - Spinal stenosis, site unspecified MR lumbar spine wo con 08/18/2024 9:54 AM SIGNS AND SYMPTOMS: Chronic nonradiating low back pain with bilateral lower extremity weakness and heaviness PROTOCOL: Multiplanar multisequence MR images of the lumbar spine without IV contrast COMPARISON: 04/13/2023 FINDINGS: There is 3 mm of retrolisthesis of L2 upon L3. There is 3 mm of anterolisthesis of L3 upon L4. There is 5 mm of anterolisthesis of L4 upon L5. There is 4 mm of retrolisthesis of L5 upon S1. This is similar to the prior exam. There is preservation of vertebral body heights. There is severe disc height loss at L1-L2 and L5-S1 with moderate disc height loss throughout otherwise. There is Modic type II fatty endplate degenerative change at L1-L2, L3-L4, and L4-L5. There is accompanying Modic type I endplate edema at L3-L4 onthe right. This extends into the right L4 pedicle and facet. Benign-appearing hemangiomas are present at T12 and L4. The conus terminates at the superior endplate of the L1 vertebral body level. No epidural or paraspinous fluid collection is appreciated. At T12-L1: There is endplate osteophyte formation with a focal right foraminal disc protrusion. There is facet hypertrophy right greater than left. There is mild spinal canal stenosis with moderate to severe right and mild left neural foraminal stenosis. This is similar to the prior exam. At L1-L2: There is a broad-based disc bulge with endplate osteophyte formation and facet hypertrophy. There is mild spinal canal stenosis with moderate bilateral neural foraminal narrowing. This is unchanged. At L2-L3: There is a broad-based disc bulge with facet hypertrophy and ligamentum flavum thickening. There is mild spinal canal stenosis with moderatebilateral neural foraminal narrowing. This is similar to the prior exam. At L3-L4: There is a circumferential disc bulge with facet hypertrophy, ligamentflavum thickening, and a small right-sided facet effusion. There is mild spinalcanal narrowing with moderate left and severe right neural foraminal stenosis. There is mass effect on the exiting right L3 nerve roots. This is similar to the prior exam. At L4-L5: There is a circumferential disc bulge with facet hypertrophy and ligament flavum thickening. There is mild to moderate spinal canal narrowing with moderate bilateral neural foraminal stenosis. This is similar to the priorexam. At L5-S1: There is a circumferential disc bulge with endplate osteophyte formation. There is facet hypertrophy. There is severe bilateral neural foraminal narrowing right greater than left with mass effect on the exiting L5 nerve roots bilaterally. This is similar to the prior exam. MR/MR lumbar spine wo con IMPRESSION: At L3-L4: There is a circumferential disc bulge with facet hypertrophy, ligamentflavum thickening, and a small right-sided facet effusion. There is mild spinalcanal narrowing with moderate left and severe right neural foraminal stenosis. There is mass effect on the exiting right L3 nerve roots. This is similar to the prior exam. At L5-S1: There is a circumferential disc bulge with endplate osteophyte formation. There is facet hypertrophy. There is severe bilateral neural foraminal narrowing right greater than left with mass effect on the exiting L5 nerve roots bilaterally. This is similar to the prior exam. Additional but lesser degrees of degenerative changes are noted throughout with multilevel listhesis. This is unchanged when compared to the prior exam. Impression dictated by: Tanika Isidro M.D.08/18/2024 3:41 PM Dictation Location: [place] [address] Transcribed By: [facility] 08/18/24 1541 Dictated By: Tanika Isidro II, MD 08/18/24 1525 Signed By: 08/18/24 1541 [facility] Work Phone: X-ray reportOrdered By: Tanika Isidro on 08-18-2024 Study report [facility] Main [place] [address] [place] [address] XRay Report Signed Patient: Jerrica Rock MR#: [id number] : 1935 Acct:[id number] Age/Sex: 88 / F ADM Date: 5 Loc: [facility] Room: Type: REG CLI Attending Dr: Matthew Bravo DO Copies to: Matthew Bravo DO~ Ordering Provider: Matthew Bravo DO Date of Service: 08/18/24 XR/XR lumbar spine 6V w bending: M48.00 - Spinal stenosis, site unspecified XR lumbar spine 6V w bending 08/18/2024 9:54 AM SIGNS AND SYMPTOMS: Back pain, bilateral lower extremity radiculopathy with difficulty walking PROTOCOLS: Frontal, lateral, and flexion-extension views of the lumbar spine COMPARISON: 04/13/2023 FINDINGS: There is 3 mm of retrolisthesis of L2 upon L3. There is 3 mm of anterolisthesisof L3 upon L4. There is 5 mm of anterolisthesis of L4 upon L5. There is 4 mm of retrolisthesis of L5 upon S1. This is similar to the prior exam. There is no pathologic movement on flexion or extension. There is preservation of vertebral body heights. There is severe disc height loss at L1-L2 and L5-S1 with moderate disc height loss throughout otherwise. Mild asymmetric degenerative changes are noted in the sacroiliac joints, right greater than left. Atherosclerotic changes are present in the thoracic aorta. XR/XR lumbar spine 6V w bending IMPRESSION: No acute bony injury. There is 3 mm of retrolisthesis of L2 upon L3. There is 3 mm of anterolisthesisof L3 upon L4. There is 5 mm of anterolisthesis of L4 upon L5. There is 4 mm of retrolisthesis of L5 upon S1. This is similar to the prior exam. There is no pathologic movement on flexion or extension. Degenerative changes are noted in the sacroiliac joints right greater than left. Impression dictated by: Tanika Isidro M.D.08/18/2024 3:50 PM Dictation Location: [place] [address] Transcribed By: [facility] 08/18/24 3223 Dictated By: Tanika Isidro II, MD 08/18/24 2252 Signed By: 08/18/24 1970 [facility] Work Phone: XR lumbar spine 6V w bending on 08-18-2024 XR lumbar spine 6V w bending [facility] Main [place] [address] [place] [address] XRay Report Signed Patient: Jerrica Rock MR#: [id number] : 1935 Acct:[id number] Age/Sex: 88 / F ADM Date: 08/18/24 [facility] Room: Type: [facility] CLI Attending Dr: Matthew Bravo DO Copies to: Matthew Bravo DO Ordering Provider: Matthew Bravo DO Date of Service: 08/18/24 XR/XR lumbar spine 6V w bending: M48.00 - Spinal stenosis, site unspecified XR lumbar spine 6V w bending 08/18/2024 9:54 AM SIGNS AND SYMPTOMS: Back pain, bilateral lower extremity radiculopathy with difficulty walking PROTOCOLS: Frontal, lateral, and flexion-extension views of the lumbar spine COMPARISON: 04/13/2023 FINDINGS: There is 3 mm of retrolisthesis of L2 upon L3. There is 3 mm of anterolisthesis of L3 upon L4. There is 5 mm of anterolisthesis of L4 upon L5. There is 4 mm of retrolisthesis of L5 upon S1. This is similar to the prior exam. There is no pathologic movement on flexion or extension. There is preservation of vertebral body heights. There is severe disc height loss at L1-L2 and L5-S1 with moderate disc height loss throughout otherwise. Mild asymmetric degenerative changes are noted in the sacroiliac joints, right greater than left. Atherosclerotic changes are present in the thoracic aorta. XR/XR lumbar spine 6V w bending IMPRESSION: No acute bony injury. There is 3 mm of retrolisthesis of L2 upon L3. There is 3 mm of anterolisthesis of L3 upon L4. There is 5 mm of anterolisthesis of L4 upon L5. There is 4 mm of retrolisthesis of L5 upon S1. This is similar to the prior exam. There is no pathologic movement on flexion or extension. Degenerative changes are noted in the sacroiliac joints right greater than left. Impression dictated by: Tanika Isidro M.D.08/18/2024 3:50 PM Dictation Location: [facility] Transcribed By: GISELLE 08/18/24 2580 Dictated By: Tanika Isidro II, MD 08/18/24 1541 Signed By: 08/18/24 6915 Normal [facility] Heart and Vascular Office/Cl in Noteon 07-28-2024 Heart and Vascular Office/Clinic Note Heart and Vascular Office/Clinic Note Chief Complaint Testing F/U History of Present Illness Patient is a 88-year-old female with past medical history history of hypertension, CKD, history of heart murmur, hyperlipidemia, hypertension, history of tachycardia. Lexiscan stress test from 10/2023 came back negative for ischemia or infarction and was a low risk study. Echo from 10/2023 showed normal EF of 55-60%, proximal septal thickening noted, mild mitral valve sclerosis, mild tricuspid regurgitation. Patient comes in for 6-week follow-up today. At last visit, I saw patient at which time PVRs of both lower extremities were ordered for patient. This test came back showing no significant stenosis in lower extremities bilaterally. Patient reports that she still does have this same wound on her right ankle. She does have a follow-up with wound clinic in the near future. Patient reports that she has been compliant with this metoprolol 50 mg daily dose since last visit. However, patient reports that she was out of the medication for a week or 2 prior to her visit with Dr. Michelle and at that visit, he felt some skipped heartbeats and heard a heart murmur. Her heart rate in the office is 72 BPM today. Patient reports that she does have occasional heart palpitations that she gets anxious or stressed at times, which is not very often. She states that is the only time she feels her heart beating. Patient does not have any associated lightheadedness, shortness of breath with heart palpitations. Patient has slightly elevated blood pressure in the office today. She is currently taking hydrochlorothiazide-triamter francesca 25-37.5 mg daily along with metoprolol 50 mg ER daily. BP is usually well controlled. Patient denies chest pain, shortness of breath, heart palpitations, dizziness/lightheadedness, and swelling in lower legs. NOTE FROM 06/16/2024: Patient comes in for 6-month follow-up today. At last visit, patient saw Dr. Goodwin at which time he increased patient's metoprolol from 25 mg ER daily to 50 mg ER daily. Patient reports that she has been compliant with this higher metoprolol dose since last visit. Her heart rate in the office is 82 BPM. Patient reports that she does have occasional heart palpitations that she gets anxious or stressed at times, which is not very often. She states that is the only time she feels her heart beating. Patient does not have any associated lightheadedness, shortness of breath with heart palpitations. Patient mentions that she has had a wound on her right inner lower leg for about 8 months now. She states that she hit it on the [employer] deck in 09/2023 and has not healed. Patient reports that she has been to dermatology a couple different times and they gave her a cream to apply to it, yet it is still there and painful to patient. Patient denies chest pain, shortness of breath, dizziness/lightheadedness, and swelling in lower legs. Review of Systems PHQ Score Initial Depression Screen Score: 0 SCORE ROS - Provider Constitutional: no fever, no chills, no sweats, no weakness Respiratory: no shortness of breath, no cough Cardiovascular: no chest pain Neuro: no dizziness. no loss of consciousness Physical Exam Vitals & Measurements HR: 72(Peripheral) RR: 18 BP: 140/82 SpO2: 96% HT: 64 in HT: 162 cm WT: 82.5 kg WT: 181.881 lb BMI: 31.44 General: alert, no acute distress Cardiovascular: regular rate and rhythm, no murmur normal peripheral perfusion Respiratory: Lungs CTAB, respirations non labored Extremities: Trace edema left lower extremity. Trace edema right lower extremity. Neurological: oriented x 4, LOC appropriate for age, speech normal Skin: Warm, dry, intact- no rash or concerning lesions Cardiac Diagnostics (06/24/2024 10:33 EST US PVR Lower EXT Complete Bilat) IMPRESSION: NO EVIDENCE OF SIGNIFICANT ARTERIAL STENOTIC DISEASE INVOLVING THE RIGHT AND LEFT LEGS. [1] Holter monitor from 11/26/2023: PROCEDURE DETAILS: The patient was recorded for two days capturing an average heart rate of 91 beats per minute, minimum heart rate of 52 beats per minute, and maximum heart rate of 139 beats per minute. The patient was in tachycardia 21.7% of the time. There was no atrial fibrillation. There were ventricular premature beats, supraventricular premature beats, and premature ventricular contractions and couplets. CONCLUSIONS: Abnormal Holter for premature ventricular contractions and couplets. Clinical correlation suggested. [2] (11/10/2023 10:59 EDT Echo Transthoracic Complete) Interpretation Summary Proximal septal thickening noted. Left ventricular systolic function is normal. Ejection Fraction = 55-60%. Grade I diastolic dysfunction, (abnormal relaxation pattern). Mild mitral valve sclerosis. There is mild tricuspid regurgitation. Mean PA pressure estimate is normal. (11/10/2023 15:22 EDT NM Myocardial Spect Rest/Stress 1 Day) NUCLEAR FINDINGS: Uptake of the tracer was homogeneous with no identifia (more content not included)... Normal [facility] Comment on above: Result Comment: Elec tronically Signed By: Young GALVAN, Edmond Rojo\\.felton\\Date and Time Signed: 07/28/24 11:29 EST Family Medicine Office/Clini c Noteon 07-18-2024 Family Medicine Office/Clinic Note Family Medicine Office/Clinic Note Chief Complaint Patient here with son (Mio) for referral to neurosurgeon d/t back pain--Dr. Asher. History of Present Illness Here for her chronic back pain. She wants to go back to Dr. Asher. He wants her to have an MRI. She has been out of her Toprol She does not note any palpitations. Review of Systems PHQ Score Initial Depression Screen Score: 0 SCORE Physical Exam Vitals & Measurements T: 36.3 ???C(Oral) HR: 122(Peripheral) BP: 116/78 SpO2: 96% HT: 64 in HT: 162 cm WT: 82.55 kg WT: 181.991 lb BMI: 31.45 General: Well developed, well nourished, in no acute distress Eyes: Pupils equal, round, and reactive to light. Conjunctivae and sclerae normal, and extraocular movements intact Ears: _Mild [place] Nose: No deformity, discharge, inflammation, or lesions Mouth: MMM. Oropharynx and posterior pharynx without lesions or exudates. Tongue WNL Neck: _supple, no bruit Lungs: Normal respiratory effort and clear to auscultation Cardio: irregular rhythm, tachycardic, 2/6 murmur Abdomen: Soft, non-distended, non-tender Musculoskeletal: No joint swelling or synovitis noted Extremity: Trace edema Neurologic: _no focal deficits, good recall of recent events. Occasional mild delay in word recall. Skin: _ Mental Status: Alert and oriented x3. Normal mood and affect Assessment/Plan 1. Back pain, chronic (M54.9: Dorsalgia, unspecified) will refer back to NS at her request Ordered: [facility] [place] External Ambulatory Referral MRI Spine Lumbar w/o Contrast 2. DDD (degenerative disc disease), lumbar (M51.369: Other intervertebral disc degeneration, lumbar region without mention of lumbar back pain or lower extremity pain) as above will get MRI per NS request They want it at [facility] Ordered: [facility] [place] External Ambulatory Referral MRI Spine Lumbar w/o Contrast 3. Adult BMI 31.0-31.9 kg/sq m (Z68.31: Body mass index [BMI] 31.0-31.9, adult) The standard range for ages 18 and older is >=18.5 and < 25 kg/m2. Your BMI today was above this range, this falls in the overweight to obese category and there are medical benefits to weight loss. We can offer counselling, referral, and/or medical support in addressing this problem. Your BMI and weight management will be followed at subsequent visits. 4. Other obesity not elsewhere classified (E66.89: Other obesity not elsewhere classified) 5. Tachycardia (R00.0: Tachycardia, unspecified) get back on Toprol Orders: metoprolol, 50 mg = 1 tab(s), Oral, Daily, # 30 tab(s), Refills(s) 11, Pharmacy: [facility]/pharmacy #[id number], 162, cm, 07/18/24 14:07:00 EST, Height/Length Dosing, 82.5, kg, 07/18/24 14:07:00 EST, Weight Dosing Follow-up With When Contact Information WAYNE CHERY, CHRISTIE Elizondo [facility] [address], [place] [address]- Additional Instructions: at regular appt but sooner if needed. Patient Education Back Exercises, [id number] Problem List/Past Medical History Ongoing Back pain, 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 Breast cancer, right Chronic kidney disease, stage 3a Cystocele with rectocele DDD (degenerative disc disease), lumbar Dyssynergic defecation Edema Encounter for follow-up surveillance of breast cancer Fecal incontinence GERD (gastroesophageal reflux disease) Heart murmur History of colon polyps History of gastric ulcer History of kidney stones Hoarseness Hyperglycemia Hyperlipidemia Hypertension Long-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 Macular degeneration Memory loss Osteoarthritis of knees, bilateral Osteopenia Recurrent UTI Skin lesion of right leg Tachycardia Tortuous aorta Unsteadiness Urge incontinence Vitamin D deficiency Historical Breast cancer Dysphagia Elevated alkaline phosphatase level Spinal stenosis NOS Procedure/Surgical History Lumpectomy of right breast (04/15/2023), Cystoscopic laser lithotripsy of ureteric calculus (09/05/2022), Cystoscopic insertion of ureteric stent (07/23/2022), Injection of nerve root of lumbar spine using fluoroscopic guidance (03/19/2022), Nerve blocks in lower limb (11/13/2021), Injection of nerve root of lumbar spine using fluoroscopic guidance (10/30/2021), Injection of facet joint using fluoroscopic guidance (12/26/2020), Esophagogastroduodenoscopy (11/07/2020), Knee replacement (07/09/2020), Colonoscopy (03/30/2015), Block, Cataract extraction and implantation of intraocular lens. Medications aspirin 81 mg Oral EC Tab, 81 mg= 1 tab(s), Oral, Daily Benadryl, 25 mg, Oral, Once a day (at bedtime) Calcium Plus Vitamin D3, 1 tab, Oral, BID hydrochlorothiazide-triamter francesca 25 mg-37.5 mg Tab, 1 tab(s), Oral, Daily, PRN, 5 refills letrozole 2.5 mg Tab, 2.5 mg= 1 tab(s), Oral, Daily, 3 refills loperamide, PRN Metamucil, 1.7 gm, Oral, Daily Pantoprazole [address] Tab PreserVision AREDS 2 oral capsule, 1 tab, Oral, BID Toprol XL 50 mg Tab-ER, 50 mg= 1 tab( (more content not included)... Normal [facility] Comment on above: Result Comment: Elec tronically Signed By: WAYNE CHERY, Yelena Howard\\.felton\\Date and Time Signed: 07/18/24 14:23 EST No Panel Informationon 07-12 Type of biopsy: amaro ential Informed consent: discussed and consent obtained Informed consent comment: The risks and benefits of the biopsy were discussed. Risks include but are not limited to bleeding, infection, scarring, pain, and nerve damage. An opportunity to ask questions prior to the procedure was permitted and all questions were answered. Patient was prepped and draped in usual sterile fashion: area cleansed with alcohol. Anesthesia: the lesion was anesthetized in a standard fashion Anesthetic: 1% lidocaine w/ epinephrine 1-100,000 buffered w/ 8.4% NaHCO3 Instrument used: DermaBlade Hemostasis achieved with: electrodesiccation Outcome: patient tolerated procedure well Outcome comment: The specimen was placed in a prelabeled formalin container to be sent for pathology Post-procedure details: sterile dressing applied and wound care instructions given Post-procedure details comment: Emphasized need to contact clinic for any signs of infection, uncontrollable bleeding, or complications. Dressing type: bandage Additional details: Photo taken yes Amount of lidocaine used: 0.5 cc [facility] [employer] No Panel InformationOrdered By: Radha Hernandez on 07-12-2024 [facility] [employer] [facility] Case Information Case Priority: None Programs: -- Referral Source: [employer] Referral Reason: Disease management Case Type: Chronic Care Management Risk Score: -- Case Status: Active (December 25, 2022) Date Assigned: December 11, 2022 Assigned By: Sofie Pop RN Date Enrolled: December 18, 2022 Assigned Primary Personnel: Sofie Pop RN Assigned Secondary Personnel: -- Case Physician: Yelena MICHELLE MD Ongoing Back pain, 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 Breast cancer, right Chronic kidney disease, stage 3a Cystocele with rectocele Dyssynergic defecation Edema Encounter for follow-up surveillance of breast cancer Fecal incontinence GERD (gastroesophageal reflux disease) Heart murmur History of colon polyps History of gastric ulcer History of kidney stones Hoarseness Hyperglycemia Hyperlipidemia Hypertension Long-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 Macular degeneration Memory loss Osteoarthritis of knees, bilateral Osteopenia Recurrent UTI Skin lesion of right leg Tachycardia Tortuous aorta Unsteadiness Urge incontinence Vitamin D deficiency Historical Breast cancer Dysphagia Elevated alkaline phosphatase level Spinal stenosis NOS Procedure/Surgical History Lumpectomy of right breast (04/15/2023), Cystoscopic laser lithotripsy of ureteric calculus (09/05/2022), Cystoscopic insertion of ureteric stent (07/23/2022), Injection of nerve root of lumbar spine using fluoroscopic guidance (03/19/2022), Nerve blocks in lower limb (11/13/2021), Injection of nerve root of lumbar spine using fluoroscopic guidance (10/30/2021), Injection of facet joint using fluoroscopic guidance (12/26/2020), Esophagogastroduodenoscopy (11/07/2020), Knee replacement (07/09/2020), Colonoscopy (03/30/2015), Block, Cataract extraction and implantation of intraocular lens. Home Medications aspirin 81 mg Oral EC Tab, 81 mg= 1 tab(s), Oral, Daily Benadryl, 25 mg, Oral, Once a day (at bedtime) Calcium Plus Vitamin D3, 1 tab, Oral, BID hydrochlorothiazide-triamter francesca 25 mg-37.5 mg Tab, 1 tab(s), Oral, Daily, PRN, 5 refills letrozole 2.5 mg Tab, 2.5 mg= 1 tab(s), Oral, Daily, 3 refills loperamide, PRN Metamucil, 1.7 gm, Oral, Daily Pantoprazole [address] Tab PreserVision AREDS 2 oral capsule, 1 tab, Oral, BID Toprol XL 50 mg Tab-ER, 50 mg= 1 tab(s), Oral, Daily, 5 refills Vitamin D3 1000 intl units (25 mcg) Tab, 25 mcg= 1 tab(s), Oral, Daily Welchol 625 mg Tab, 1875 mg= 3 tab(s), Oral, BID, 5 refills Allergies No Known Allergies Social History Alcohol - Low Risk, 01/09/2021 1-2 times per month., 06/10/2024 Current, Liquor, burbon or citizen of [place] whiskey, 3-5 times per week, 1 drinks/episode average. 1.00 drinks/episode maximum. Previous treatment: None. Alcohol use interferes with work or home: No. Drinks more than intended: No. Others hurt by drinking: No. Ready to change: No. Household alcohol concerns: No., 01/13/2023 Exercise Substance Abuse - Denies Substance Abuse, 09/07/2011 Never., 06/10/2024 Tobacco - Denies Tobacco Use, 09/07/2011 Never (less than 100 in lifetime) Tobacco Use:. Never Smokeless Tobacco Use:., 06/27/2024 Family History Acute myocardial infarction: Brother. COPD: Mother. Diabetes mellitus type 1: Brother. Heart failure: Brother. Primary malignant neoplasm of female breast: Aunt. Screenings and Assessments 02/10/23 10:07:00 Result Name Value Comment Phone Call Monitoring Consent Agreed to continue call Phone Verification Patient Information Full name, street address and date of verified CM Program Enrollment Provides verbal consent for enrollment CCM Program Enrollment Verbally agreed to receive CCM services CCM Written Consent Written consent obtained CCM Verbal Consent By Self 12/18/22 10:00:00 Result Name Value Comment HIPPA Verified Type of Contact Telephone CM Preferred Spoken Language [place]an CM Preferred Written Language [place]an Preferred Communication Mode Verbal Ability to Read/Write Able to read, Able to write Best Time to Visit or Contact 10-1 pm Best Day to Visit or Contact Thursday, Thursday, Appointment Reminders Phone Preferred Way to Send PHI Standard mail Able to Read [place]an Able to read Zimbabwean Learning Style Pref Patient None Learning Style Pref Parent/Guardian None Teaching Method Printed materials Barriers to Learning None evident Cognitive Deficit No Response to Current Year Correct Response to Current Month Correct Response to Current Time Correct Count Backward 20 to 1 Correct [facility] Test S (more content not included)... Normal [facility] US PVR Lower EXT Complete Bi laton 06-29-2024 US PVR Lower EXT Complete Bilat Exam Date/Time: 06/24/2024 10:33 EST Reason for Exam: long standing wound;Other (please specify) Report IMPRESSION: NO EVIDENCE OF SIGNIFICANT ARTERIAL STENOTIC DISEASE INVOLVING THE RIGHT AND LEFT LEGS. CLINICAL HISTORY: long standing wound. COMPARISON: None available. FINDINGS: On the right, the brachial systolic pressure is 129 the high thigh pressure is 152 , index 1.18 the low thigh pressure is 149 , index 1.16 the calf pressure is 156 , index 1.21 the posterior tibial ankle pressure is 163 , index 1.26 the dorsalis pedis ankle pressure is 169 , index 1.31 and the digit pressure is 136 , index 1.05 (with normal 0.7 or greater). The plethysmography waveforms are normal. On the left, the brachial systolic pressure is 127 the high thigh pressure is 164 , index 1.27 the low thigh pressure is 161 , index 1.25 the calf pressure is 196 , index 1.5 to the posterior tibial ankle pressure is 170 , index 1.32 the dorsalis pedis ankle pressure is 166 , index 1.29 and the digit pressure is 132 , index 1.02 (with normal 0.7 or greater). The plethysmography waveforms are normal. Ordering Provider: Edmond Vidal FINAL REPORT Dictated: 06/29/2024 12:26 pm Erich Feliciano MD Signed (Electronic Signature): 06/29/2024 12:26 pm Signed by: Erich Feliciano MD Transcribed by: SHILPA Technologist: ABHIJEET Pike [facility] Ambulatory Visit Summaryon 1 08-28-2023 Ambulatory Visit Summary Ambulatory Visit Summary JERRICA ROCK :1935 Visit Date:06/27/2024 Ambulatory Visit Instructions Your Diagnosis Hypertension Chronic kidney disease, stage 3a Hyperlipidemia Hyperglycemia Vitamin D deficiency Encounter for follow-up surveillance of breast cancer GERD (gastroesophageal reflux disease) Adult BMI 32.0-32.9 kg/sq m Other obesity not elsewhere classified Personal history of malignant neoplasm of breast Skin lesion of right leg Macular degeneration These Are Your Goals Hyperglycemia:Maintain Hem A1C below 5.9% 09/10/2022 - Progressing Interventions: Complete lab work as ordered - Progressing Eat a balanced diet - Progressing Maintain an active lifestyle - Progressing Review education material - Done Hypertension:Maintain BP within a therapeutic range Interventions: Maintain an active lifestyle - Progressing Monitor BP as needed - Progressing Monitor sodium intake - Progressing Review education material - Done Hyperlipidemia: Maintain lipid profile within a therapeutic range - Progressing Interventions: Avoid foods high in saturated fats/fried foods - Progressing Complete lab work as ordered - Progressing Increase fruits and vegetables in diet - Progressing Maintain an active lifestyle - Progressing Review education material - Done Vitamin D deficiency:Maintain therapeutic levels - Progressing Interventions: Complete lab work as ordered - Progressing Monitor for symptoms(Bone/muscle pain, frequent falls and broken bones by minor injuries - Progressing Perform low impact exercises daily - Progressing Review education material - Done Your Care Team Attending Physician - Yelena MICHELLE MD Primary Care Physician - Yelena MICHELLE MD This Is Your Medications List Contact prescribing physician if questions or concerns aspirin (aspirin 81 mg Oral EC Tab) calcium-vitamin D (Calcium Plus Vitamin D3) cholecalciferol (Vitamin D3 1000 intl units (25 mcg) Tab) colesevelam (Welchol 625 mg Tab) diphenhydrAMINE (Benadryl) hydrochlorothiazide-triamter francesca (hydrochlorothiazide-triamte iris 25 mg-37.5 mg Tab) letrozole (letrozole 2.5 mg Tab) loperamide metoprolol (Toprol XL 50 mg Tab-ER) multivitamin with minerals (PreserVision AREDS 2 oral capsule) pantoprazole (Pantoprazole [address] Tab) psyllium (Metamucil) Procedures Performed Lumpectomy of right breast (04/15/2023), Cystoscopic laser lithotripsy of ureteric calculus (09/05/2022), Cystoscopic insertion of ureteric stent (07/23/2022), Injection of nerve root of lumbar spine using fluoroscopic guidance (03/19/2022), Nerve blocks in lower limb (11/13/2021), Injection of nerve root of lumbar spine using fluoroscopic guidance (10/30/2021), Injection of facet joint using fluoroscopic guidance (12/26/2020), Esophagogastroduodenoscopy (11/07/2020), Knee replacement (07/09/2020), Colonoscopy (03/30/2015), Block, Cataract extraction and implantation of intraocular lens. Discharge Vitals Temperature (Oral) 36.5 ???C Heart Rate (Peripheral) 88 Blood Pressure 122/68 Height 162 cm Height 64 in Weight 84.45 kg Weight 186.18 lb BMI 32.18 What to do next Scheduled Follow-Up Appointments 2024 10:45 AM EST With: Edmond Vidal PA-C Where: [facility] 2024 9:45 AM EST With: Jt CHERY, Radha Kim Where: [facility] [address] [place] [address] [place] [id number]- Thursday 11:00 AM EST With: Sandoval CHERY, Regina He Where: [facility] Thursday 10:40 AM EDT With: Yelena Osorio MD Where: [facility] [place] [address], [address] [place] [address]- Thursday 2:30 PM EDT With: Where: [facility] [address] [place] [address]- You Need to Schedule the Following Appointments Follow Up with WAYNE CHERY, Yelena Howard, MED When: In 4 months Where: [facility] [address] [place] [address]- You Need to Complete the Following CBC w/ Auto Diff, Blood, Routine collect, 06/27/24, Order for future visit, Lab Collect, Hypertension, Not Required, Print Label By Order Location Comprehensive Metabolic Panel, Blood, Routine collect, 06/27/24, Order for future visit, Lab Collect, Hypertension Chronic kidney disease, stage 3a, Not Required, Print Label By Order Location PTH Intact, Blood, Routine collect, 06/27/24, Order for future visit, Lab Collect, Chronic kidney disease, stage 3a, Not Required, Print Label By Order Location Vitamin D 25 Hydroxy, Blood, Routine collect, 06/27/24, Order for future visit, Lab Collect, Vitamin D deficiency, Not Required, Print Label By Order Location Medications What How Much When Why Instructions Unchanged aspirin (aspirin 81 mg Oral (more content not included)... Normal [facility] Family Medicine Office/Clini c Noteon 06-27-2024 Family Medicine Office/Clinic Note Family Medicine Office/Clinic Note Chief Complaint Patient here for 4 month f/u on htn, gerd--had labs done. History of Present Illness Here for med follow up She has htn. She denies CP or SOB. She has GERD and is controlled on Pantoprazole She has breast cancer and follows with surgery and oncology. She has been going to derm for the wound on her leg still Review of Systems PHQ Score Initial Depression Screen Score: 0 SCORE Physical Exam Vitals & Measurements T: 36.5 ???C(Oral) HR: 88(Peripheral) BP: 122/68 SpO2: 97% HT: 64 in HT: 162 cm WT: 84.45 kg WT: 186.18 lb BMI: 32.18 General: Well developed, well nourished, in no acute distress Eyes: Pupils equal, round, and reactive to light. Conjunctivae and sclerae normal, and extraocular movements intact Ears: _Mild [place] Nose: No deformity, discharge, inflammation, or lesions Mouth: MMM. Oropharynx and posterior pharynx without lesions or exudates. Tongue WNL Neck: _supple, no bruit Lungs: Normal respiratory effort and clear to auscultation Cardio: irregular rhythm, normal rate, 2/6 murmur Abdomen: Soft, non-distended, non-tender Musculoskeletal: No joint swelling or synovitis noted Extremity: Trace edema Neurologic: _no focal deficits, good recall of recent events. Occasional mild delay in word recall. Skin: _wound Medial R lower leg Mental Status: Alert and oriented x3. Normal mood and affect Assessment/Plan 1. Hypertension (I10: Essential (primary) hypertension) stay on Maxzide, metoprolol Ordered: CBC w/ Auto Diff Comprehensive Metabolic Panel 2. Chronic kidney disease, stage 3a (N18.31: Chronic kidney disease, stage 3a) eGFR: 44 mL/min/1.73 m2 Low (06/21/24 11:03:00) Creatinine: 1.2 mg/dL (06/21/24 11:03:00) lab is stable Ordered: Comprehensive Metabolic Panel PTH Intact 3. Hyperlipidemia (E78.5: Hyperlipidemia, unspecified) Chol: 178 mg/dL (06/21/24 11:03:00) HDL: 43 mg/dL (06/21/24 11:03:00) LDL Direct: 116 mg/dL (06/21/24 11:03:00) Tri mg/dL (06/21/24 11:03:00) VLDL: 28 mg/dL (06/21/24 11:03:00) stay on Welchol- she is on it from GI for her bowels 4. Hyperglycemia (R73.9: Hyperglycemia, unspecified) Hgb A1C %: 6.1 % High (06/21/24 11:03:00) Keep on diet 5. Vitamin D deficiency (E55.9: Vitamin D deficiency, unspecified) Vitamin D 25 Hydroxy: 38.6 ng/mL (09/29/23 08:23:00) Ordered: Vitamin D 25 Hydroxy 6. Encounter for follow-up surveillance of breast cancer (Z08: Encounter for follow-up examination after completed treatment for malignant neoplasm) stay on Letrozole 7. GERD (gastroesophageal reflux disease) (K21.9: Gastro-esophageal reflux disease without esophagitis) stay on pantoprazole 8. Adult BMI 32.0-32.9 kg/sq m (Z68.32: Body mass index [BMI] 32.0-32.9, adult) The standard range for ages 18 and older is >=18.5 and < 25 kg/m2. Your BMI today was above this range, this falls in the overweight to obese category and there are medical benefits to weight loss. We can offer counselling, referral, and/or medical support in addressing this problem. Your BMI and weight management will be followed at subsequent visits. 9. Other obesity not elsewhere classified (E66.89: Other obesity not elsewhere classified) 10. Personal history of malignant neoplasm of breast (Z85.3: Personal history of malignant neoplasm of breast) 11. Skin lesion of right leg (L98.9: Disorder of the skin and subcutaneous tissue, unspecified) She has been to derm a few times 12. Macular degeneration (H35.30: Unspecified macular degeneration) Follow-up With When Contact Information WAYNE CHERY, CHRISTIE Elizondo In 4 months [facility] [address], [place] [address]- Additional Instructions: Patient Education Chronic Kidney Disease, Adult, [id number] Problem List/Past Medical History Ongoing Back pain, 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 Breast cancer, right Chronic kidney disease, stage 3a Cystocele with rectocele Dyssynergic defecation Edema Encounter for follow-up surveillance of breast cancer Fecal incontinence GERD (gastroesophageal reflux disease) Heart murmur History of colon polyps History of gastric ulcer History of kidney stones Hoarseness Hyperglycemia Hyperlipidemia Hypertension Long-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 Macular degeneration Memory loss Osteoarthritis of knees, bilateral Osteopenia Recurrent UTI Skin lesion of right leg Tachycardia Tortuous aorta Unsteadiness Urge incontinence Vitamin D deficiency Historical Breast cancer Dysphagia Elevated alkaline phosphatase level Spinal stenosis NOS Procedure/Surgical History Lumpectomy of right breast (04/15/2023), Cystoscopic laser lithotripsy of ureteric calculus (09/05/2022), Cystoscopic insertion of ureteric stent (07/23/2022), Injection of nerve root of lumbar spine using fluoroscopic guidance (03/19/2022), Nerve blocks in (more content not included)... Normal [facility] Comment on above: Result Comment: Elec tronically Signed By: WAYNE CHERY, Yelena Alicea\\Date and Time Signed: 06/27/24 12:01 EST CBC w/ Auto Diffon 4 Basophils/100 WBC (Bld) 0.3 % Normal 0.0-2.0 [facility] Comment on above: Performed By: #### 2 [id number] #### [facility] [address] [place] [id number] Basophils/Leukocyte s Auto (Bld) [Pure # fraction] 0.0 E9/L Normal 0.0-0.2 [facility] Comment on above: Performed By: #### 2 [id number] #### [facility] [address] [place] [address] Eosinophils (Bld) [#/Vol] 0.4 E9/L Normal 0.0-0.5 [facility] Comment on above: Performed By: #### 2 [id number] #### [facility] [address] [place] [address] Eosinophils/100 WBC (Bld) 4.5 % Normal 0.0-8.0 [facility] Comment on above: Performed By: #### 2 [id number] #### [facility] [address] [place] [address] Erythrocyte distribution width (RBC) [Ratio] 13.6 % Normal 10.9-14.2 [facility] [facility] Comment on above: Performed By: #### 2 [id number] #### [facility] [address] [place] [address] Hematocrit (Bld) [Volume fraction] 42.2 % Normal 34.0-46.0 [facility] Comment on above: Performed By: #### 2 [id number] #### [facility] [address] [place] [address] Hemoglobin (Bld) [Mass/Vol] 14.2 g/dL Normal 12.0-16.0 [facility] Comment on above: Performed By: #### 2 [id number] #### [facility] [address] [place] [address] Lymphocytes (Bld) [#/Vol] 2.5 E9/L Normal 1.0-4.0 [facility] Comment on above: Performed By: #### 2 [id number] #### [facility] [address] [place] [address] Lymphocytes/100 WBC (Bld) 27.5 % Normal 14.0-50.0 [facility] Comment on above: Performed By: #### 2 [id number] #### [facility] [address] [place] [address] MCH (RBC) [Entitic mass] 29.4 pg Normal 27.0-34.0 [facility] Comment on above: Performed By: #### 2 [id number] #### [facility] [address] [place] [address] MCHC (RBC) [Mass/Vol] 33.6 g/dL Normal 31.4-36.0 [facility] Comment on above: Performed By: #### 2 [id number] #### [facility] [address] [place] [address] MCV (RBC) [Entitic vol] 87.6 fL Normal 80.0-100.0 [facility] Comment on above: Performed By: #### 2 [id number] #### [facility] [address] [place] [address] Monocytes (Bld) [#/Vol] 0.8 E9/L Normal 0.2-1.0 [facility] Comment on above: Performed By: #### 2 [id number] #### [facility] [address] [place] [address] Neutrophils (Bld) [#/Vol] 5.4 E9/L Normal 2.0-7.5 [facility] Comment on above: Performed By: #### 2 [id number] #### [facility] [address] [place] [address] Neutrophils/100 WBC (Bld) 58.6 % Normal 36.0-75.0 [facility] Comment on above: Performed By: #### 2 [id number] #### [facility] [address] [place] [address] Platelet 255.0 E9/L Normal 150.0-500. 0 [facility] Comment on above: Performed By: #### 2 [id number] #### [facility] [address] [place] [address] Platelet mean volume (Bld) [Entitic vol] 9.7 fL Normal 6.4-10.8 [facility] Comment on above: Performed By: #### 2 [id number] #### [facility] [address] [place] [address] RBC (Bld) [#/Vol] 4.8 E12/L Normal 4.3-5.9 [facility] Comment on above: Performed By: #### 2 [id number] #### [facility] [address] [place] [address] WBC corrected for nucl RBC Auto (Bld) [#/Vol] 9.2 E9/L Normal 4.0-11.0 [facility] Comment on above: Performed By: #### 2 [id number] #### [facility] [address] [place] [address] CHEMISTRYOrdered By: SYSTEM SYSTEM on 06-21-2024 Albumin [Mass/Vol] 4.0 g/dL Normal 3.3 - 5.0 gm/dL [facility] Albumin/Globulin [Mass ratio] 1.1 {ratio} Normal 1.1 - 2.2 [facility] ALP [Catalytic activity/Vol] 107 [iU]/d High 21 - 98 Int._Unit/ L [facility] ALT No additional P-5'-P [Catalytic activity/Vol] 11 [iU]/d Normal 6 - 46 Int._Unit/ L [facility] Anion gap [Moles/Vol] 12 mmol/L Normal 6 - 16 mEq/L [facility] AST [Catalytic activity/Vol] 19 [iU]/d Normal 5 - 43 Int._Unit/ L [facility] Bilirubin [Mass/Vol] 0.6 mg/dL Normal 0.0 - 1.1 mg/dL [facility] Calcium [Mass/Vol] 9.6 mg/dL Normal 8.9 - 11. 1 mg/dL [facility] Chloride [Moles/Vol] 106 mmol/L Normal 101 - 111 mmol/L [facility] Cholesterol [Mass/Vol] 178 mg/dL Normal 120 - 200 mg/dL [facility] Cholesterol in HDL [Mass/Vol] 43 mg/dL Invalid Interpretation Code [facility] Comment on above: Result Comment: '>= 60 LOW RISK' '<= 40 HIGH RISK' Cholesterol in LDL [Mass/Vol] 116 mg/dL Normal <=129mg/dL [facility] Cholesterol in VLDL [Mass/Vol] 28 mg/dL Normal 7 - 40 mg/dL [facility] CO2 [Moles/Vol] 26 mmol/L Normal 21 - 31 mmol/L [facility] Creatinine [Mass/Vol] 1.2 mg/dL Normal 0.5 - 1.3 mg/dL [facility] eGFR 44 mL/min/1.73 m2 Low >=59mL/min /1.73 m2 [facility] Globulin (S) [Mass/Vol] 3.7 g/dL Normal 1.4 - 4.0 gm/dL [facility] Glucose [Mass/Vol] 100 mg/dL Normal 55 - 199 mg/dL [facility] Potassium [Moles/Vol] 3.9 mmol/L Normal 3.5 - 5.3 mmol/L [facility] Protein [Mass/Vol] 7.7 g/dL Normal 6.0 - 7.8 gm/dL [facility] Sodium [Moles/Vol] 140 mmol/L Normal 135 - 145 mmol/L [facility] Triglyceride [Mass/Vol] 138 mg/dL Normal <=149mg/dL [facility] Urea nitrogen [Mass/Vol] 24 mg/dL High 5 - 21 mg/dL [facility] Urea nitrogen/Creatinine [Mass ratio] 20 mg/mg Normal 10 - 20 [facility] CHEMISTRYOrdered By: Maxine East se on 06-21-2024 HbA1c (Bld) [Mass fraction] 6.1 % High <=5.9% [facility] [place] ChemAutoSS CMPon 06-21-2024 Albumin [Mass/Vol] 4.0 g/dL Normal 3.3-5.0 [facility] Comment on above: Performed By: #### 2 [id number] #### [facility] [address] [place] [address] Albumin/Globulin (S) [Mass conc ratio] 1.1 Normal 1.1-2.2 [facility] Comment on above: Performed By: #### 2 [id number] #### [facility] [address] [place] [address] ALP [Catalytic activity/Vol] 107 Int._Unit/L High 21-98 [facility] Comment on above: Performed By: #### 2 [id number] #### [facility] [address] [place] [address] ALT No additional P-5'-P [Catalytic activity/Vol] 11 Int._Unit/L Normal 6-46 [facility] Comment on above: Performed By: #### 2 [id number] #### [facility] [address] [place] [address] Anion gap [Moles/Vol] 12 mmol/L Normal 6-16 [facility] Comment on above: Performed By: #### 2 [id number] #### [facility] [address] [place] [address] AST [Catalytic activity/Vol] 19 Int._Unit/L Normal 5-43 [facility] Comment on above: Performed By: #### 2 [id number] #### [facility] [address] [place] [address] Bilirubin [Mass/Vol] 0.6 mg/dL Normal 0.0-1.1 [facility] Comment on above: Performed By: #### 2 [id number] #### [facility] [address] [place] [address] Calcium [Mass/Vol] 9.6 mg/dL Normal 8.9-11.1 [facility] Comment on above: Performed By: #### 2 [id number] #### [facility] [address] [place] [address] Chloride [Moles/Vol] 106 mmol/L Normal 101-111 [facility] Comment on above: Performed By: #### 2 [id number] #### [facility] [address] [place] [address] CO2 [Moles/Vol] 26 mmol/L Normal 21-31 [facility] Comment on above: Performed By: #### 2 [id number] #### [facility] [address] [place] [address] Creatinine [Mass/Vol] 1.2 mg/dL Normal 0.5-1.3 [facility] Comment on above: Performed By: #### 2 [id number] #### [facility] [address] [place] [address] Globulin (S) [Mass/Vol] 3.7 g/dL Normal 1.4-4.0 [facility] Comment on above: Performed By: #### 2 [id number] #### [facility] [address] [place] [address] Glucose [Mass/Vol] 100 mg/dL Normal 55-199 [facility] Comment on above: Performed By: #### 2 [id number] #### [facility] [address] [place] [address] Potassium [Moles/Vol] 3.9 mmol/L Normal 3.5-5.3 [facility] Comment on above: Performed By: #### 2 [id number] #### [facility] [address] [place] [address] Protein [Mass/Vol] 7.7 g/dL Normal 6.0-7.8 [facility] Comment on above: Performed By: #### 2 [id number] #### [facility] [address] [place] [address] Sodium [Moles/Vol] 140 mmol/L Normal 135-145 [facility] Comment on above: Performed By: #### 2 [id number] #### [facility] [address] [place] [address] Urea nitrogen [Mass/Vol] 24 mg/dL High 5-21 [facility] Comment on above: Performed By: #### 2 [id number] #### [facility] [address] [place] [address] Urea nitrogen/Creatinine [Mass ratio] 20 No Units Normal 10-20 [facility] Comment on above: Performed By: #### 2 [id number] #### [facility] [address] [place] [address] HEMATOLOGYOrdered By: SYSTEM SYSTEM on 06-21-2024 Basophils/100 WBC (Bld) 0.3 % Normal 0.0 - 2.0 % [facility] Basophils/Leukocyte s Auto (Bld) [Pure # fraction] 0.0 E9/L Normal 0.0 - 0.2 E9/L [facility] Eosinophils (Bld) [#/Vol] 0.4 E9/L Normal 0.0 - 0.5 E9/L [facility] Eosinophils/100 WBC (Bld) 4.5 % Normal 0.0 - 8.0 % [facility] Erythrocyte distribution width (RBC) [Ratio] 13.6 % Normal 10.9 - 14.2 % [facility] Hematocrit (Bld) [Volume fraction] 42.2 % Normal 34.0 - 46.0 % [facility] Hemoglobin (Bld) [Mass/Vol] 14.2 g/dL Normal 12.0 - 16.0 gm/dL [facility] Lymphocytes (Bld) [#/Vol] 2.5 E9/L Normal 1.0 - 4.0 E9/L [facility] Lymphocytes/100 WBC (Bld) 27.5 % Normal 14.0 - 50.0 % [facility] MCH (RBC) [Entitic mass] 29.4 pg Normal 27.0 - 34.0 pg [facility] MCHC (RBC) [Mass/Vol] 33.6 g/dL Normal 31.4 - 36.0 gm/dL [facility] MCV (RBC) [Entitic vol] 87.6 fL Normal 80.0 - 100.0 fL [facility] Monocytes (Bld) [#/Vol] 0.8 E9/L Normal 0.2 - 1.0 E9/L [facility] Monocytes/100 WBC (Bld) 9.1 % Normal 4.0 - 14.0 % [facility] Neutrophils (Bld) [#/Vol] 5.4 E9/L Normal 2.0 - 7.5 E9/L [facility] Neutrophils/100 WBC (Bld) 58.6 % Normal 36.0 - 75.0 % [facility] Platelet 255.0 E9/L Normal 150.0 - 500.0 E9/L [facility] Platelet mean volume (Bld) [Entitic vol] 9.7 fL Normal 6.4 - 10.8 fL [facility] RBC (Bld) [#/Vol] 4.8 E12/L Normal 4.3 - 5.9 E12/L [facility] WBC corrected for nucl RBC Auto (Bld) [#/Vol] 9.2 E9/L Normal 4.0 - 11.0 E9/L [facility] [id number] 06-21-2024 HbA1c (Bld) [Mass fraction] 6.1 % High <=5.9 [facility] Comment on above: Performed By: #### 7 [id number] #### [facility] [address] [place] [address] Lipid Panelon 06-21-2024 Cholesterol [Mass/Vol] 178 mg/dL Normal 120-200 [facility] Comment on above: Performed By: #### 2 [id number] #### [facility] [address] [place] [address] Cholesterol in HDL [Mass/Vol] 43 mg/dL Invalid Interpretation Code [facility] Comment on above: Result Comment: '>= 60 LOW RISK' '<= 40 HIGH RISK' Performed By: #### 2 [id number] #### [facility] [address] [place] [address] Cholesterol in LDL [Mass/Vol] 116 mg/dL Normal <=129 [facility] Comment on above: Performed By: #### 2 [id number] #### [facility] [address] [place] [address] Cholesterol in VLDL [Mass/Vol] 28 mg/dL Normal 7-40 [facility] Comment on above: Performed By: #### 2 [id number] #### [facility] [address] [place] [address] Triglyceride [Mass/Vol] 138 mg/dL Normal <=149 [facility] Comment on above: Performed By: #### 2 [id number] #### [facility] [address] [place] [address] eGFRon 06-21-2024 eGFR 44 mL/min/1.73 m2 Low >=59 [facility] Comment on above: Performed By: #### 1 [id number] #### [facility] [address] [place] [address] Heart and Vascular Office/Cl inic Noteon 06-16-2024 Heart and Vascular Office/Clinic Note Heart and Vascular Office/Clinic Note Chief Complaint 6 mo f/u htn History of Present Illness Patient is a 88-year-old female with past medical history history of hypertension, CKD, history of heart murmur, hyperlipidemia, hypertension, history of tachycardia. Lexiscan stress test from 10/2023 came back negative for ischemia or infarction and was a low risk study. Echo from 10/2023 showed normal EF of 55-60%, proximal septal thickening noted, mild mitral valve sclerosis, mild tricuspid regurgitation. Patient comes in for 6-month follow-up today. At last visit, patient saw Dr. Goodwin at which time he increased patient's metoprolol from 25 mg ER daily to 50 mg ER daily. Patient reports that she has been compliant with this higher metoprolol dose since last visit. Her heart rate in the office is 82 BPM. Patient reports that she does have occasional heart palpitations that she gets anxious or stressed at times, which is not very often. She states that is the only time she feels her heart beating. Patient does not have any associated lightheadedness, shortness of breath with heart palpitations. Patient mentions that she has had a wound on her right inner lower leg for about 8 months now. She states that she hit it on the mower deck in 09/2023 and has not healed. Patient reports that she has been to dermatology a couple different times and they gave her a cream to apply to it, yet it is still there and painful to patient. Patient denies chest pain, shortness of breath, dizziness/lightheadedness, and swelling in lower legs. Review of Systems PHQ Score Initial Depression Screen Score: 0 SCORE ROS - Provider Constitutional: no fever, no chills, no sweats, no weakness Respiratory: no shortness of breath, no cough Cardiovascular: no chest pain Neuro: no dizziness. no loss of consciousness Physical Exam Vitals & Measurements HR: 82(Peripheral) RR: 16 BP: 124/72 SpO2: 96% HT: 64 in HT: 162 cm WT: 83.9 kg WT: 184.968 lb BMI: 31.97 General: alert, no acute distress Cardiovascular: regular rate and rhythm, no murmur normal peripheral perfusion Respiratory: Lungs CTAB, respirations non labored Extremities: Trace edema left lower extremity. Trace edema right lower extremity. Patient has a small 1.5 cm in diameter wound on her right medial ankle. No current drainage, mild surrounding erythema. Does appear ulcerative at this time, although not deep .about 1-2 mm deep. Neurological: oriented x 4, LOC appropriate for age, speech normal Skin: Warm, dry, intact- no rash or concerning lesions Cardiac Diagnostics Holter monitor from 11/26/2023: PROCEDURE DETAILS: The patient was recorded for two days capturing an average heart rate of 91 beats per minute, minimum heart rate of 52 beats per minute, and maximum heart rate of 139 beats per minute. The patient was in tachycardia 21.7% of the time. There was no atrial fibrillation. There were ventricular premature beats, supraventricular premature beats, and premature ventricular contractions and couplets. CONCLUSIONS: Abnormal Holter for premature ventricular contractions and couplets. Clinical correlation suggested. [2] (11/10/2023 10:59 EDT Echo Transthoracic Complete) Interpretation Summary Proximal septal thickening noted. Left ventricular systolic function is normal. Ejection Fraction = 55-60%. Grade I diastolic dysfunction, (abnormal relaxation pattern). Mild mitral valve sclerosis. There is mild tricuspid regurgitation. Mean PA pressure estimate is normal. (11/10/2023 15:22 EDT NM Myocardial Spect Rest/Stress 1 Day) NUCLEAR FINDINGS: Uptake of the tracer was homogeneous with no identifiable ischemia or infarction. The TID ratio was 0.76. The ejection fraction was 62%. End-diastolic volume was 38 mL. CONCLUSIONS: Negative Lexiscan nuclear stress test, overall low-risk stress. [1] Assessment/Plan 1. Hypertension (I10: Essential (primary) hypertension) Patient has history of hypertension. Blood pressure is well-controlled the office today. Patient is currently taking HCTZ-triamterene 25-37.5 mg daily. This also has helped with her swelling to lower extremities. Patient is also taking metoprolol 50 mg ER daily which would affect her blood pressure. Continue with current medications 2. Tachycardia (R00.0: Tachycardia, unspecified) Patient has a history of tachycardia and was tachycardic for 21% of the time when she had her most recent heart monitor in 11/2023. Patient is currently taking metoprolol 50 mg ER daily and her heart rate is 82 bpm in the office today. Continue with current medication 3. Wound of lower extremity (S81.809A: Unspecified open wound, unspecified lower leg, initial encounter) Patient has a wound to her lower right extremity that has been there since 09/2023. Patient has had a little bit of swelling that has come down since the wound. Patient has seen dermatology and they have not been able to clear the wound. Want to check the patient's blood flow to lower ext (more content not included)... Normal [facility] Comment on above: Result Comment: Elec tronically Signed By: Young GALVAN, Edmond Rojo\\.br\\Date and Time Signed: 06/16/24 11:19 EST Gastroenterology Office/Clin ic Noteon 06-15-2024 Gastroenterology Office/Clinic Note Gastroenterology Office/Clinic Note Chief Complaint Urgency, orange stool, loose stool, leakage, constipation. HPI Staff This is a 88 year old female who presents today for a 6 month follow up. Any issues?? Yes - multiple- Seen KARON Munoz in the past and never improved. Leakage- wears pads, constipation, gas, loose stool, urgency and orange stools. Patient is house bound due too bowel issues. Imodium Last visit w/ Dr Waters Assessment/Plan 1. 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 taking metamucil 1 tablespoon daily Is currently having 1 formed BM every other day. Dr. Ga recommended no repeat colonoscopies. Continue kegel exercises. Continue fiber supplementation daily. 2. Irregular bowel habits (R19.8: Other specified symptoms and signs involving the digestive system and abdomen) Improved. 3. GERD (gastroesophageal reflux disease) (K21.9: Gastro-esophageal reflux disease without esophagitis) Hx. gastric ulcer. Controlled. 4. History of colon polyps (Z86.010: Personal history of colonic polyps) Dr. Ga recommended no repeat colonoscopies. EGD w/ Dr Ga 11/07/20 Impression and Plan Normal EGD, the previously seen gastric ulcer has resolved completely Colonoscopy w/ Dr Ga 01/13/20 Impression and Plan 1. Flat polyp, 10 mm, in the ascending, with a mucous cap, removed completely with hot snare after submucosal lifting, 1 clip placed at the polypectomy site 2. Sessile polyp, 5 mmt, in the ascending, removed completely with cold snare 3. Sessile polyp, 5 mm, in the descending, removed completely with cold snare 4. Small nonbleeding internal hemorrhoids 5. Moderate diverticular disease throughout the colon Recommendations: Repeat colonoscopy:: None, Pending pathology results. Final Diagnosis (Verified) A: GASTRIC BODY ULCER, BIOPSY: ??? GASTRIC ULCER WITH MODERATE CHRONIC ACTIVE INFLAMMATION AND REGENERATIVE CHANGES. ??? NO INTESTINAL METAPLASIA OR DYSPLASIA. ??? NO H. PYLORI MICROORGANISMS IDENTIFIED WITH IMMUNOSTAIN. B: STOMACH, BIOPSY: ??? GASTRIC MUCOSA WITH MILD CHRONIC INFLAMMATION AND REGENERATIVE CHANGES. C: RECTUM, BIOPSY: ??? COLONIC MUCOSA WITHIN NORMAL LIMITS. D: ASCENDING COLON, BIOPSY: ??? COLONIC MUCOSA WITHIN NORMAL LIMITS. E: POLYPS, ASCENDING COLON, POLYPECTOMY: ??? TUBULAR ADENOMA. ??? HYPERPLASTIC POLYP. F. DESCENDING COLON POLYP, POLYPECTOMY: ??? TUBULAR ADENOMA. Laboratory Results CBC CMP PT PTT Basophil Absolute: 0.1 E9/L (02/25/24) A/G Ratio: 1.1 (02/25/24) INR: 1.26 (09/30/23) PTT: 33.4 second(s) (09/30/23) Basophil Auto: 0.6 % (02/25/24) A/G Ratio: 1.2 (02/25/24) PT: 14.2 second(s) High (09/30/23) Eos Absolute: 0.6 E9/L High (02/25/24) AGAP: 12 mEq/L (02/25/24) Eos Auto: 7.1 % (02/25/24) Albumin Lvl: 4 gm/dL (02/25/24) Hct: 41.6 % (02/25/24) Alk Phos: 105 Int._Unit/L High (02/25/24) HGB: 14.1 gm/dL (02/25/24) ALT: 11 Int._Unit/L (02/25/24) Lymph Absolute: 2.7 E9/L (02/25/24) AST: 16 Int._Unit/L (02/25/24) Lymph Auto: 31.2 % (02/25/24) Bili Total: 0.5 mg/dL (02/25/24) MCH: 29.6 pg (02/25/24) BUN: 18 mg/dL (02/25/24) MCHC: 34 gm/dL (02/25/24) BUN/Creat Ratio: 18 (02/25/24) MCV: 87 fL (02/25/24) Calcium Lvl: 9.8 mg/dL (02/25/24) [place] Absolute: 0.8 E9/L (02/25/24) Chloride: 109 mmol/L (02/25/24) [place] Auto: 9.2 % (02/25/24) CO2: 23 mmol/L (02/25/24) MPV: 10.5 fL (02/25/24) Creatinine: 1 mg/dL (02/25/24) Neutro Absolute: 4.5 E9/L (02/25/24) Globulin: 3.4 (02/25/24) Neutro Auto: 51.9 % (02/25/24) Globulin: 3.3 gm/dL (02/25/24) Platelet: 209 E9/L (02/25/24) Glucose Lvl: 104 mg/dL (02/25/24) RBC: 4.8 E12/L (02/25/24) Potassium Lvl: 3.8 mmol/L (02/25/24) RDW: 14.5 % High (02/25/24) Sodium Lvl: 140 mmol/L (02/25/24) WBC: 8.8 E9/L (02/25/24) Total Protein: 7.3 gm/dL (02/25/24) Liver Studies Ferritin Lvl: 60 ng/mL (07/14/23) HCV Ab: Non Reactive (07/14/23) Hep A IgM: Negative (07/14/23) Hep B Core IgM: Negative (07/14/23) Hep Bs Ag: Negative (07/14/23) Iron: 122 mcg/dL (07/14/23) TIBC: 318 mcg/dL (07/14/23) Celiac Panel IgA Quant: duplicate (02/25/24) IgA Quant: 415 (02/25/24) History of Present Illness I have reviewed HPI staff note, most recent labs and imaging, I agree with the above documentation with the following additions/exceptions : pt has issues with bowels for ages pt was taking Imodium as needed bad urge and might have issues with urge not going away greasy burger - spent all night in the bathroom Review of Systems PHQ Score Initial Depression Screen Score: 0 SCORE All systems reviewed, negative except as mentioned above Physical Exam Vitals & Measurements HR: 84(Peripheral) BP: 116/72 HT: 64 in HT: 162 cm WT: 83.9 kg WT: 184.968 lb BMI: 31.97 General: alert, no acute distress HEENT: atraumatic normocephalic Cardiovascular (more content not included)... Normal [facility] Comment on above: Result Comment: Elec tronically Signed By: Jt CHERY, Radha Kim\\.br\\Date and Time Signed: 06/15/24 13:16 [facility] 05-06-20 [facility] Case Information Case Priority: None Programs: -- Referral Source: [employer] Referral Reason: Disease management Case Type: Chronic Care Management Risk Score: -- Case Status: Active (December 25, 2022) Date Assigned: December 11, 2022 Assigned By: Sofie Pop RN Date Enrolled: December 18, 2022 Assigned Primary Personnel: Sofie Pop RN Assigned Secondary Personnel: -- Case Physician: Yelena MICHELLE MD Ongoing Back pain, 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 Breast cancer, right Chronic kidney disease, stage 3a Cystocele with rectocele Dyssynergic defecation Edema Encounter for follow-up surveillance of breast cancer Fecal incontinence GERD (gastroesophageal reflux disease) Heart murmur History of colon polyps History of gastric ulcer History of kidney stones Hoarseness Hyperglycemia Hyperlipidemia Hypertension Long-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 Macular degeneration Memory loss Osteoarthritis of knees, bilateral Osteopenia Recurrent UTI Skin lesion of right leg Tachycardia Tortuous aorta Unsteadiness Urge incontinence Vitamin D deficiency Historical Breast cancer Dysphagia Elevated alkaline phosphatase level Spinal stenosis NOS Procedure/Surgical History Lumpectomy of right breast (04/15/2023), Cystoscopic laser lithotripsy of ureteric calculus (09/05/2022), Cystoscopic insertion of ureteric stent (07/23/2022), Injection of nerve root of lumbar spine using fluoroscopic guidance (03/19/2022), Nerve blocks in lower limb (11/13/2021), Injection of nerve root of lumbar spine using fluoroscopic guidance (10/30/2021), Injection of facet joint using fluoroscopic guidance (12/26/2020), Esophagogastroduodenoscopy (11/07/2020), Knee replacement (07/09/2020), Colonoscopy (03/30/2015), Block, Cataract extraction and implantation of intraocular lens. Home Medications aspirin 81 mg Oral EC Tab, 81 mg= 1 tab(s), Oral, Daily Benadryl, 25 mg, Oral, Once a day (at bedtime) Calcium Plus Vitamin D3, 1 tab, Oral, BID hydrochlorothiazide-triamter francesca 25 mg-37.5 mg Tab, 1 tab(s), Oral, Daily, PRN, 5 refills letrozole 2.5 mg Tab, 2.5 mg= 1 tab(s), Oral, Daily, 3 refills loperamide, PRN Metamucil, 1.7 gm, Oral, Daily Pantoprazole [address] Tab, 40 mg= 1 tab(s), Oral, Daily, 1 refills PreserVision AREDS 2 oral capsule, 1 tab, Oral, BID Toprol XL 50 mg Tab-ER, 50 mg= 1 tab(s), Oral, Daily, 5 refills Vitamin D3 1000 intl units (25 mcg) Tab, 25 mcg= 1 tab(s), Oral, Daily Allergies No Known Allergies Social History Alcohol - Low Risk, 01/09/2021 Current, 1-2 times per month, 04/10/2023 Current, Liquor, burbon or citizen of [place] whiskey, 3-5 times per week, 1 drinks/episode average. 1.00 drinks/episode maximum. Previous treatment: None. Alcohol use interferes with work or home: No. Drinks more than intended: No. Others hurt by drinking: No. Ready to change: No. Household alcohol concerns: No., 01/13/2023 Exercise Substance Abuse - Denies Substance Abuse, 09/07/2011 Household substance abuse concerns: No., 01/13/2023 Tobacco - Denies Tobacco Use, 09/07/2011 Never (less than 100 in lifetime) Tobacco Use:. Never Smokeless Tobacco Use:. Household tobacco concerns: No., 04/26/2024 Family History Acute myocardial infarction: Brother. COPD: Mother. Diabetes mellitus type 1: Brother. Heart failure: Brother. Primary malignant neoplasm of female breast: Aunt. Screenings and Assessments 02/10/23 10:07:00 Result Name Value Comment Phone Call Monitoring Consent Agreed to continue call Phone Verification Patient Information Full name, street address and date of verified Program Enrollment Provides verbal consent for enrollment CCM Program Enrollment Verbally agreed to receive [facility] services CCM Written Consent Written consent obtained CCM Verbal Consent By Self 12/18/22 10:00:00 Result Name Value Comment HIPPA Verified Type of Contact Telephone CM Preferred Spoken Language Zimbabwean CM Preferred Written Language Zimbabwean Preferred Communication Mode Verbal Ability to Read/Write Able to read, Able to write Best Time to Visit or Contact 10-1 pm Best Day to Visit or Contact Thursday, Thursday, Appointment Reminders Phone Preferred Way to Send PHI Standard mail Able to Read Zimbabwean Able to read Zimbabwean Learning Style Pref Patient None Learning Style Pref Parent/Guardian None Teaching Method Printed materials Barriers to Learning None evident Cognitive Deficit No Response to Current Year Correct Response to Current Month Correct Response to Current Time Correct C (more content not included)... 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 had 5 radiation treatments) and back pain. KUB done 04/25/24 Dysuria: no Incomplete bladder emptying: no, Pt. states she will sit a while to make sure she is empty, PVR 37mL Hematuria: no Frequency: 3-4x's a day, Pt. taking water pill due to legs swelling Urgency: yes Nocturia: 1-2x's Stream:strong steam Post void dripping: Wearing pads/ Depends: yes, Pt. wears pads and will use 1-2 a day Urge incontinence: yes Stress incontinence: yes Incontinence without Sensory Awareness: no Abdominal pain: no Flank pain: Pt. states always has back pain Review of Systems PHQ Score Initial Depression Screen Score: 0 SCORE no fever, chills, malaise, myalgia. no rash/lesions. no chest pain, palpitations, or SOB. no abdominal pain, nausea, vomiting. 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 Son lives with her. 1. History of kidney stones (Z87.442: Personal history of urinary calculi) S/p R HLL Aug [address]22 Dr Weldon. This was the pt's first stone event. No recent signs of stone passage. Consumes 6-8 cups of water a day. KUB 04/25/24 - no obvious stones. -Discussed stone prevention diet. Check KUB in 1 yr (not ordered today). Ordered: Complex E&M Add on G2211 E&M of Est. Patient Moderate 30-39 Min 21015 Urnls Dip Stick Auto w/o Microscopy POC 15942 2. Urge incontinence (N39.41: Urge incontinence) Myrbetriq rx'd Oct 2022 but it was cost prohibitive failed Oxybutynin 5mg ER PNE via Dr Darden Jan 2023 w success. Pt didn't move fwd w permanent placement of device. PVR 37ml today Continues to have bothersome UUI, YASMINE, nocturia x 3, severe urgency. Daytime frequency q3-4h. Does not wish to try any other tx options at this time. -Did recommend timed void q2h. Ordered: Complex E&M Add on G2211 E&M of Est. Patient Moderate 30-39 Min 02646 3. Fecal incontinence (R15.9: Full incontinence of feces) Chronic. Primary complaint. Follows w GI. Had some improvement w PFPT but says she's not able to keep up with it. Has upcoming appt w different GI and hoping they'll have some answers. Says FI is really keeping her in her home/limiting activity as she is so afraid to have an accident. Ordered: Complex E&M Add on G2211 E&M of Est. Patient Moderate 30-39 Min 82615 4. Recurrent UTI (N39.0: Urinary tract infection, site not specified) None in the past year. UA shows small leuks only. Denies current UTI sx. No indication to send for cx. Ordered: Complex E&M Add on G2211 E&M of Est. Patient Moderate 30-39 Min 14492 Rectocele (N81.6: Rectocele) Orders: XR Abdomen 1 View Offered 1 yr or 6 mo f/u, pt prefers the latter. Follow-up With When Contact Information PENNY GALVAN, CORAZON Jay, URL Within 6 months [address] [place] [address] [facility] (1) Additional Instructions: Patient Education Overactive Bladder, Adult Problem List/Past Medical History Ongoing Back pain, 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 Breast cancer, right Chronic kidney disease, stage 3a Cystocele with rectocele Dyssynergic defecation Edema Encounter for follow-up surveillance of breast cancer Fecal incontinence GERD (gastroesophageal reflux disease) Heart murmur History of colon polyps History of gastric ulcer History of kidney stones Hoarseness Hyperglycemia Hyperlipidemia Hypertension Long-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 Macular degeneration Memory loss Osteoarthritis of knees, bilateral Osteopenia Recurrent UTI Skin lesion of right leg Tachycardia Tortuous aorta Unsteadiness Urge incontinence Vitamin D deficiency Historical Breast cancer Dysphagia Elevated alkaline phosphatase level Spinal stenosis NOS Procedure/Surgical History Lumpectomy of right breast (04/15/2023), Cystoscopic laser lithotripsy of ureteric calculus (09/05/2022), Cystoscopic insertion of ureteric stent (07/23/2022), Injection of nerve root of lumbar spine using fluoroscopic guidance (03/19/2022), Nerve blocks in lower limb (11/13/2021), Injection of nerve root of lumbar spine using fluoroscopic guidance (10/30/2021), Injection of facet joint using fluoroscopic guidance (12/26/2020), Esophagogastroduodenoscopy (11/07/2020), (more content not included)... [facility] Comment on above: Result Comment: Elec tronically Signed By: CORAZON FRANCIS PA-C\\.br\\Date and Time Signed: 04/28/24 15:51 EDT XR Abdomen 1 Viewon 04-28-20 24 XR Abdomen 1 View Exam Date/Time: 04/25/2024 14:48 EDT Reason for Exam: N20.0;Kidney stone Report IMPRESSION: NO URINARY TRACT CALCULI IDENTIFIED BY RADIOGRAPHY. EXAMINATION: XR Abdomen 1 View HISTORY: Kidney stone TECHNIQUE: Frontal view of the abdomen and pelvis COMPARISON: None available FINDINGS: No calcifications identified over the bilateral renal shadows or expected course of the ureters. Nonobstructive bowel gas pattern. No evidence of free air. No acute osseous abnormality. Scoliosis and degenerative changes of the thoracolumbar spine. Degenerative changes of both hips. Ordering Provider: , FINAL REPORT Dictated: 04/28/2024 10:39 am Dallin Avila DO Signed (Electronic Signature): 04/28/2024 10:39 am Signed by: Dallin Avila DO Transcribed by: SHILPA Technologist: DAVINA Technical Comments Radiation Dose: Ka,r in mGy = na DAP = na [facility] Ambulatory Visit Summaryon 1 Ambulatory Visit Summary Ambulatory Visit Summary JERRICA ROCK :1935 Visit Date:04/26/2024 Ambulatory Visit Instructions Your Diagnosis History of kidney stones Your Care Team Attending Physician - CORAZON FRANCIS PA-C Primary Care Physician - Yelena MICHELLE MD This Is Your Medications List aspirin (aspirin 81 mg Oral EC Tab) calcium-vitamin D (Calcium Plus Vitamin D3) cholecalciferol (Vitamin D3 1000 intl units (25 mcg) Tab) diphenhydrAMINE (Benadryl) hydrochlorothiazide-triamter francesca (hydrochlorothiazide-triamte iris 25 mg-37.5 mg Tab) letrozole (letrozole 2.5 mg Tab) loperamide metoprolol (Toprol XL 50 mg Tab-ER) multivitamin with minerals (PreserVision AREDS 2 oral capsule) pantoprazole (Pantoprazole [address] Tab) psyllium (Metamucil) Procedures Performed Lumpectomy of right breast (04/15/2023), Cystoscopic laser lithotripsy of ureteric calculus (09/05/2022), Cystoscopic insertion of ureteric stent (07/23/2022), Injection of nerve root of lumbar spine using fluoroscopic guidance (03/19/2022), Nerve blocks in lower limb (11/13/2021), Injection of nerve root of lumbar spine using fluoroscopic guidance (10/30/2021), Injection of facet joint using fluoroscopic guidance (12/26/2020), Esophagogastroduodenoscopy (11/07/2020), Knee replacement (07/09/2020), Colonoscopy (03/30/2015), Block, Cataract extraction and implantation of intraocular lens. Discharge Vitals Heart Rate (Peripheral) 129 Respiratory Rate 19 Blood Pressure 127/84 Height 165 cm Height 65 in Weight 83 kg Weight 182.6 lb BMI 30.49 What to do next Scheduled Follow-Up Appointments Thursday 12:15 PM EST With: Jt CHERY, Radha Kim Where: [facility] [address] [facility] [address] [place] [address]23 10:45 AM EST With: Trever CHERY, Jan Haas Where: Cardiology Clinic Thursday 11:20 AM EST With: Yelena IMCHELLE MD Where: [facility] [address] [place] [address]- Thursday 11:00 AM EST With: Sandoval CHERY, Regina He Where: [facility] Thursday 10:40 AM EDT With: Yelena Osorio MD Where: [facility] [place] [address] [place] [address]- Thursday 2:30 PM EDT With: Where: [facility] [address] [place] [address]- Medications What How Much When Why Instructions Unchanged aspirin (aspirin 81 mg Oral EC Tab) 1 Tablets By Mouth Every day Unchanged calcium-vitamin D (Calcium Plus Vitamin D3) 1 tab By Mouth 2 times a day Unchanged cholecalciferol (Vitamin D3 1000 intl units (25 mcg) Tab) 1 Tablets By Mouth Every day Unchanged diphenhydrAMINE (Benadryl) 25 Milligram By Mouth Once a day (at bedtime) takes OTC rx Unchanged hydrochlorothiazide-triamter francesca (hydrochlorothiazide-triamte iris 25 mg-37.5 mg Tab) 1 Tablets By Mouth Every day as needed for leg swelling Edema Unchanged letrozole (letrozole 2.5 mg Tab) 1 Tablets By Mouth Every day Duration: 90 Days Unchanged loperamide As needed for as needed for loose stool Unchanged metoprolol (Toprol XL 50 mg Tab-ER) 1 Tablets By Mouth Every day Unchanged multivitamin with minerals (PreserVision AREDS 2 oral capsule) 1 tab By Mouth 2 times a day Unchanged pantoprazole (Pantoprazole [address] Tab) 1 Tablets By Mouth Every day GERD (gastroesophageal reflux disease) Duration: 90 Days Unchanged psyllium (Metamucil) 1.7 Gram By Mouth Every day Allergies No Known Allergies Problems Ongoing - Any problem that you are currently receiving treatment for. Back pain, 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 Breast cancer, right Chronic kidney disease, stage 3a Cystocele with rectocele Dyssynergic defecation Edema Encounter for follow-up surveillance of breast cancer Fecal incontinence GERD (gastroesophageal reflux disease) Heart murmur History of colon polyps History of gastric ulcer History of kidney stones Hoarseness Hyperglycemia Hyperlipidemia Hypertension Long-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 Macular degeneration Memory loss Osteoarthritis of knees, bilateral Osteopenia Recurrent UTI Skin lesion of right leg Tachycardia Tortuous aorta Unsteadiness Urge incontinence Vitamin D deficiency Historical - Any problem that you are no longer receiving treatment for. Breast cancer Dysphagia Elevated alkaline phosphatase level Spinal stenosis NOS Patient Survey You may receive a survey via text or e-mail asking about your office visit. Please share your experience with us by completing your survey. We appreciate your feedback and thank you for choosing us for your care. [facility] Reminderson 04-26-2024 Reminders Reminders From: Thelma Yanez To: EU - Administrative; Sent: 04/26/2024 11:36:37 EDT Show up: 07/27/2024 11:36:00 EST Subject: Ambulatory Reminder Due Date/Time: 10/25/2024 11:36:00 EDT Reminder/Recall Patient needs scheduled with STEPHANI in 6 months, no labs or imaging needed [facility] General Surgery Office/Clini c Noteon 04-11-2024 General Surgery Office/Clinic Note General Surgery Office/Clinic Note Chief Complaint 3 month follow up HPI Staff Jerrica Jamia is a an 88 y.o. female here for 3 month follow up She has a hx of right breast cancer-03/2023 s/p right breast lumpectomy done 04/15/2023 Oncotype done 05/13/2023 Denies breast changes Last mammogram done 02/17/2024 History of Present Illness 88-year-old female here for 3-month follow-up following right for grade 1 invasive lobular carcinoma. Needle localized lumpectomy for performed April 2023. Most recent mammogram was performed January 2024 it was a BI-RADS 2. Review of Systems PHQ Score Initial Depression Screen Score: 0 SCORE Physical Exam Vitals & Measurements HR: 72(Peripheral) BP: 176/80 HT: 64 in HT: 162 cm WT: 85.72 kg WT: 188.584 lb BMI: 32.66 Right breast exam incision is well-healed no mass skin abnormality abnormality nipple areolar complex peau d'orange or dimpling is noted, left breast exam normal Bilateral axillary exams normal Assessment/Plan 88-year-old female hormone positive breast cancer here for surveillance follow-up 1. Encounter for follow-up surveillance of breast cancer (Z08: Encounter for follow-up examination after completed treatment for malignant neoplasm) Follow-up 6 months continue hormone therapy per medical oncology 2. Breast cancer, right (C50.911: Malignant neoplasm of unspecified site of right female breast) As above Personal history of malignant neoplasm of breast (Z85.3: Personal history of malignant neoplasm of breast) Portions of this record may have been created with voice recognition artificial intelligence software, specifically [employer], Language Learning Class and or [employer]. Substitutions may have occurred due to the inherent limitations of voice recognition and artificial intelligence software. Follow-up No qualifying data available Problem List/Past Medical History Ongoing Back pain, 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 Breast cancer, right Chronic kidney disease, stage 3a Cystocele with rectocele Dyssynergic defecation Edema Encounter for follow-up surveillance of breast cancer Fecal incontinence GERD (gastroesophageal reflux disease) Heart murmur History of colon polyps History of gastric ulcer History of kidney stones Hoarseness Hyperglycemia Hyperlipidemia Hypertension Long-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 Macular degeneration Memory loss Osteoarthritis of knees, bilateral Osteopenia Recurrent UTI Skin lesion of right leg Tachycardia Tortuous aorta Unsteadiness Urge incontinence Vitamin D deficiency Historical Breast cancer Dysphagia Elevated alkaline phosphatase level Spinal stenosis NOS Procedure/Surgical History Lumpectomy of right breast (04/15/2023), Cystoscopic laser lithotripsy of ureteric calculus (09/05/2022), Cystoscopic insertion of ureteric stent (07/23/2022), Injection of nerve root of lumbar spine using fluoroscopic guidance (03/19/2022), Nerve blocks in lower limb (11/13/2021), Injection of nerve root of lumbar spine using fluoroscopic guidance (10/30/2021), Injection of facet joint using fluoroscopic guidance (12/26/2020), Esophagogastroduodenoscopy (11/07/2020), Knee replacement (07/09/2020), Colonoscopy (03/30/2015), Block, Cataract extraction and implantation of intraocular lens. Medications aspirin 81 mg Oral EC Tab, 81 mg= 1 tab(s), Oral, Daily Benadryl, 25 mg, Oral, Once a day (at bedtime) Calcium Plus Vitamin D3, 1 tab, Oral, BID hydrochlorothiazide-triamter francesca 25 mg-37.5 mg Tab, 1 tab(s), Oral, Daily, PRN, 5 refills loperamide, PRN Metamucil, 1.7 gm, Oral, Daily Pantoprazole [address] Tab, 40 mg= 1 tab(s), Oral, Daily, 1 refills PreserVision AREDS 2 oral capsule, 1 tab, Oral, BID Toprol XL 50 mg Tab-ER, 50 mg= 1 tab(s), Oral, Daily, 5 refills Vitamin D3 1000 intl units (25 mcg) Tab, 25 mcg= 1 tab(s), Oral, Daily Allergies No Known Allergies Social History Alcohol - Low Risk, 01/09/2021 Current, 1-2 times per month, 04/10/2023 Current, Liquor, burbon or citizen of [place] whiskey, 3-5 times per week, 1 drinks/episode average. 1.00 drinks/episode maximum. Previous treatment: None. Alcohol use interferes with work or home: No. Drinks more than intended: No. Others hurt by drinking: No. Ready to change: No. Household alcohol concerns: No., 01/13/2023 Exercise Substance Abuse - Denies Substance Abuse, 09/07/2011 Household substance abuse concerns: No., 01/13/2023 Tobacco - Denies Tobacco Use, 09/07/2011 Never (less than 100 in lifetime) Tobacco Use:. Never Smokeless Tobacco Use:. Household tobacco concerns: No., 04/05/2024 Family History Acute myocardial infarction: Brother. COPD: Mother. Diabetes mellitus type 1: Brother. Heart failure: Brother. Primary malignant neoplasm of female breast: Aunt. Immunizations Vaccine Date Status Comments influenza virus vaccine, inactivated 04/05/2024 Given influenza virus vaccine, (more content not included)... [facility] Comment on above: Result Comment: Elec tronically Signed By: Jo CHERY, Yelena Johnson\\Date and Time Signed: 04/11/24 14:36 EDT Ambulatory Visit Summaryon 0 04-05-2024 Ambulatory Visit Summary Ambulatory Visit Summary JERRICA ROCK :1935 Visit Date:04/05/2024 Ambulatory Visit Instructions Your Diagnosis Edema Adult BMI 32.0-32.9 kg/sq m Other obesity These Are Your Goals Hyperglycemia:Maintain Hem A1C below 5.9% 09/10/2022 - Progressing Interventions: Complete lab work as ordered - Progressing Eat a balanced diet - Progressing Maintain an active lifestyle - Progressing Review education material - Done Hypertension:Maintain BP within a therapeutic range Interventions: Maintain an active lifestyle - Progressing Monitor BP as needed - Progressing Monitor sodium intake - Progressing Review education material - Done Hyperlipidemia: Maintain lipid profile within a therapeutic range - Progressing Interventions: Avoid foods high in saturated fats/fried foods - Progressing Complete lab work as ordered - Progressing Increase fruits and vegetables in diet - Progressing Maintain an active lifestyle - Progressing Review education material - Done Vitamin D deficiency:Maintain therapeutic levels - Progressing Interventions: Complete lab work as ordered - Progressing Monitor for symptoms(Bone/muscle pain, frequent falls and broken bones by minor injuries - Progressing Perform low impact exercises daily - Progressing Review education material - Done Your Care Team Attending Physician - Yelena MICHELLE MD Primary Care Physician - Yelena MICHELLE MD This Is Your Medications List hydrochlorothiazide-triamter francesca (hydrochlorothiazide-triamte iris 25 mg-37.5 mg Tab) Contact prescribing physician if questions or concerns aspirin (aspirin 81 mg Oral EC Tab) calcium-vitamin D (Calcium Plus Vitamin D3) cholecalciferol (Vitamin D3 1000 intl units (25 mcg) Tab) diphenhydrAMINE (Benadryl) loperamide metoprolol (Toprol XL 50 mg Tab-ER) multivitamin with minerals (PreserVision AREDS 2 oral capsule) pantoprazole (Pantoprazole [address] Tab) psyllium (Metamucil) Procedures Performed Lumpectomy of right breast (04/15/2023), Cystoscopic laser lithotripsy of ureteric calculus (09/05/2022), Cystoscopic insertion of ureteric stent (07/23/2022), Injection of nerve root of lumbar spine using fluoroscopic guidance (03/19/2022), Nerve blocks in lower limb (11/13/2021), Injection of nerve root of lumbar spine using fluoroscopic guidance (10/30/2021), Injection of facet joint using fluoroscopic guidance (12/26/2020), Esophagogastroduodenoscopy (11/07/2020), Knee replacement (07/09/2020), Colonoscopy (03/30/2015), Block, Cataract extraction and implantation of intraocular lens. Discharge Vitals Temperature (Oral) 36.7 ?C Heart Rate (Peripheral) 80 Blood Pressure 144/78 Height 64 in Height 162 cm Weight 188.584 lb Weight 85.72 kg BMI 32.66 What to do next Scheduled Follow-Up Appointments Thursday 1:40 PM EDT With: Yelena Osorio MD Where: [facility] [place] [address] [place] [address]- Thursday 10:00 AM EDT With: CORAZON FRANCIS PA-C Where: [facility] [place] [facility] [address] [place] [address] [place] [address]- Thursday 12:15 PM EST With: Jt CHERY, Radha Kim Where: [facility] [address] [facility] [place] [address] [place] [address] 10:45 AM EST With: Trever CHERY, Jan Haas Where: [facility] Thursday 11:20 AM EST With: Yelena MICHELLE MD Where: [facility] [address] [place] [address]- Thursday 11:00 AM EST With: Sandoval CHERY, Regina He Where: [facility] Thursday 2:30 PM EDT With: Where: [facility] [address] [place] [address]- You Need to Schedule the Following Appointments Follow Up with WAYNE CHERY, Yelena Howard, MED When: Comments: at regular appt but sooner if needed. Where: [facility] [address] [place] [address]- Medications What How Much When Why Instructions New hydrochlorothiazide-triamter francesca (hydrochlorothiazide-triamte iris 25 mg-37.5 mg Tab) 1 Tablets By Mouth Every day as needed for leg swelling Edema Refills: 5 Pickup at [facility]/pharmacy #[id number] Unchanged aspirin (aspirin 81 mg Oral EC Tab) 1 Tablets By Mouth Every day Contact prescribing physician if questions or concerns Unchanged calcium-vitamin D (Calcium Plus Vitamin D3) 1 tab By Mouth 2 times a day Contact prescribing physician if questions or concerns Unchanged cholecalciferol (Vitamin D3 1000 intl units (25 mcg) Tab) 1 Tablets By Mouth Every day Contact prescribing physician if questions or concerns Unchanged diphenhydrAMINE (Benadryl) 25 Milligram By Mouth Once a day (at bedtime) takes OTC rx Contact p (more content not included)... [facility] Family Medicine Office/Clini c Noteon 04-05-2024 Family Medicine Office/Clinic Note Family Medicine Office/Clinic Note Chief Complaint Patient saw dermatology for lesion on right lower leg & given abx--finished a week ago. Concerned with swelling in lower legs & ankles. History of Present Illness Here with c/o swelling in both lower legs. Dermatology wanted her to get checked. She denies any CP or SOB. she has compression hose but does not wear them often. she has a sore on the R medial ankle Physical Exam Vitals & Measurements T: 36.7 ?C(Oral) HR: 80(Peripheral) BP: 144/78 SpO2: 95% HT: 64 in HT: 162 cm WT: 85.72 kg WT: 188.584 lb BMI: 32.66 General: Well developed, well nourished, in no acute distress Eyes: Pupils equal, round, and reactive to light. Conjunctivae and sclerae normal, and extraocular movements intact Ears: not assessed Nose: not addressed Mouth: MMM. Oropharynx and posterior pharynx without lesions or exudates. Tongue WNL Neck: _supple Lungs: Normal respiratory effort and clear to auscultation Cardio: Regular rate and rhythm, normal S1 and S2, no murmur, no rub Abdomen: Soft, non-distended, non-tender Musculoskeletal: not assessed Extremity: No clubbing, cyanosis or edema. Neurologic: _no focal deficits noted. Skin: _LLE has 1 cm scab above medial ankle, mild tenderness, mild redness. Mental Status: Alert and oriented x3. Normal mood and affect Assessment/Plan 1. Edema (R60.9: Edema, unspecified) will put on Maxzide prn use compression hose if able keep legs elevated when resting. Ordered: hydrochlorothiazide-triamter francesca, 1 tab(s), Oral, Daily leg swelling, 30 tab(s), Refill(s) 5, [facility]/pharmacy #[id number], 162, cm, 04/05/24 13:53:00 EDT, Height/Length Dosing, 85.7, kg, 04/05/24 13:53:00 EDT, Weight Dosing 2. Adult BMI 32.0-32.9 kg/sq m (Z68.32: Body mass index [BMI] 32.0-32.9, adult) The standard range for ages 18 and older is >=18.5 and < 25 kg/m2. Your BMI today was above this range, this falls in the overweight to obese category and there are medical benefits to weight loss. We can offer counselling, referral, and/or medical support in addressing this problem. Your BMI and weight management will be followed at subsequent visits. 3. Other obesity (E66.8: Other obesity) Follow-up With When Contact Information WAYNE CHERY, [facility] [address] [place] [address], [place] [address]- Additional Instructions: at regular appt but sooner if needed. Patient Education Edema, [id number] Problem List/Past Medical History Ongoing Back pain, 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 Breast cancer, right Chronic kidney disease, stage 3a Cystocele with rectocele Dyssynergic defecation Edema Encounter for follow-up surveillance of breast cancer Fecal incontinence GERD (gastroesophageal reflux disease) Heart murmur History of colon polyps History of gastric ulcer History of kidney stones Hoarseness Hyperglycemia Hyperlipidemia Hypertension Long-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 Macular degeneration Memory loss Osteoarthritis of knees, bilateral Osteopenia Recurrent UTI Skin lesion of right leg Tachycardia Tortuous aorta Unsteadiness Urge incontinence Vitamin D deficiency Historical Breast cancer Dysphagia Elevated alkaline phosphatase level Spinal stenosis NOS Procedure/Surgical History Lumpectomy of right breast (04/15/2023), Cystoscopic laser lithotripsy of ureteric calculus (09/05/2022), Cystoscopic insertion of ureteric stent (07/23/2022), Injection of nerve root of lumbar spine using fluoroscopic guidance (03/19/2022), Nerve blocks in lower limb (11/13/2021), Injection of nerve root of lumbar spine using fluoroscopic guidance (10/30/2021), Injection of facet joint using fluoroscopic guidance (12/26/2020), Esophagogastroduodenoscopy (11/07/2020), Knee replacement (07/09/2020), Colonoscopy (03/30/2015), Block, Cataract extraction and implantation of intraocular lens. Medications aspirin 81 mg Oral EC Tab, 81 mg= 1 tab(s), Oral, Daily Benadryl, 25 mg, Oral, Once a day (at bedtime) Calcium Plus Vitamin D3, 1 tab, Oral, BID hydrochlorothiazide-triamter francesca 25 mg-37.5 mg Tab, 1 tab(s), Oral, Daily, PRN, 5 refills loperamide, PRN Metamucil, 1.7 gm, Oral, Daily Pantoprazole [address] Tab, 40 mg= 1 tab(s), Oral, Daily, 1 refills PreserVision AREDS 2 oral capsule, 1 tab, Oral, BID Toprol XL 50 mg Tab-ER, 50 mg= 1 tab(s), Oral, Daily, 5 refills Vitamin D3 1000 intl units (25 mcg) Tab, 25 mcg= 1 tab(s), Oral, Daily Allergies No Known Allergies Social History Alcohol - Low Risk, 01/09/2021 Current, 1-2 times per month, 04/10/2023 Current, Liquor, burbon or citizen of [place] whiskey, 3-5 times per week, 1 drinks/episode average. 1.00 drinks/episode maximum. Previous treatment: None. Alcohol use interferes with work or home: No. Drinks more than intended: No. Others hurt by drinking: No. Ready to change: No. Household alcohol concerns: No., 01/13/2023 Exercise Subst (more content not included)... Normal [facility] Comment on above: Result Comment: Elec tronically Signed By: WAYNE CHERY, Yelena K\\.br\\Date and Time Signed: 04/05/24 14:14 EDT Immunoglobs. A/E/G/Mon 03-08 IgA Quant duplicate Invalid Interpretation Code [facility] Comment on above: Performed By: #### 1 [id number] #### [facility] [address] [place] [address] IgG Quant duplicate Invalid Interpretation Code [facility] Comment on above: Performed By: #### 1 [id number] #### [facility] [address] [place] [address] IgM Quant duplicate Invalid Interpretation Code [facility] Comment on above: Performed By: #### 1 [id number] #### [facility] [address] [place] [address] [facility] 03-08-20 [facility] Case Information Case Priority: None Programs: -- Referral Source: [employer] Referral Reason: Disease management Case Type: Chronic Care Management Risk Score: -- Case Status: Active (December 25, 2022) Date Assigned: December 11, 2022 Assigned By: Sofie Pop RN Date Enrolled: December 18, 2022 Assigned Primary Personnel: Sofie Pop RN Assigned Secondary Personnel: -- Case Physician: Yelena MICHELLE MD Ongoing Back pain, 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 Breast cancer, right Chronic kidney disease, stage 3a Cystocele with rectocele Dyssynergic defecation Edema Encounter for follow-up surveillance of breast cancer Fecal incontinence GERD (gastroesophageal reflux disease) Heart murmur History of colon polyps History of gastric ulcer History of kidney stones Hoarseness Hyperglycemia Hyperlipidemia Hypertension Long-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 Macular degeneration Memory loss Osteoarthritis of knees, bilateral Osteopenia Recurrent UTI Skin lesion of right leg Tachycardia Tortuous aorta Unsteadiness Urge incontinence Vitamin D deficiency Historical Breast cancer Dysphagia Elevated alkaline phosphatase level Spinal stenosis NOS Procedure/Surgical History Lumpectomy of right breast (04/15/2023), Cystoscopic laser lithotripsy of ureteric calculus (09/05/2022), Cystoscopic insertion of ureteric stent (07/23/2022), Injection of nerve root of lumbar spine using fluoroscopic guidance (03/19/2022), Nerve blocks in lower limb (11/13/2021), Injection of nerve root of lumbar spine using fluoroscopic guidance (10/30/2021), Injection of facet joint using fluoroscopic guidance (12/26/2020), Esophagogastroduodenoscopy (11/07/2020), Knee replacement (07/09/2020), Colonoscopy (03/30/2015), Block, Cataract extraction and implantation of intraocular lens. Home Medications aspirin 81 mg Oral EC Tab, 81 mg= 1 tab(s), Oral, Daily Benadryl, 25 mg, Oral, Once a day (at bedtime) Calcium Plus Vitamin D3, 1 tab, Oral, BID Femara 2.5 mg Tab, 2.5 mg= 1 tab(s), Oral, Daily, 1 refills loperamide, PRN Metamucil, 1.7 gm, Oral, Daily Pantoprazole [address] Tab, 40 mg= 1 tab(s), Oral, Daily, 1 refills PreserVision AREDS 2 oral capsule, 1 tab, Oral, BID Toprol XL 50 mg Tab-ER, 50 mg= 1 tab(s), Oral, Daily, 5 refills Vitamin D3 1000 intl units (25 mcg) Tab, 25 mcg= 1 tab(s), Oral, Daily Allergies No Known Allergies Social History Alcohol - Low Risk, 01/09/2021 Current, 1-2 times per month, 04/10/2023 Current, Liquor, burbon or citizen of [place] whiskey, 3-5 times per week, 1 drinks/episode average. 1.00 drinks/episode maximum. Previous treatment: None. Alcohol use interferes with work or home: No. Drinks more than intended: No. Others hurt by drinking: No. Ready to change: No. Household alcohol concerns: No., 01/13/2023 Exercise Substance Abuse - Denies Substance Abuse, 09/07/2011 Household substance abuse concerns: No., 01/13/2023 Tobacco - Denies Tobacco Use, 09/07/2011 Never (less than 100 in lifetime) Tobacco Use:. Never Smokeless Tobacco Use:. Household tobacco concerns: No., 02/29/2024 Family History Acute myocardial infarction: Brother. COPD: Mother. Diabetes mellitus type 1: Brother. Heart failure: Brother. Primary malignant neoplasm of female breast: Aunt. Screenings and Assessments 02/10/23 10:07:00 Result Name Value Comment Phone Call Monitoring Consent Agreed to continue call Phone Verification Patient Information Full name, street address and date of verified CM Program Enrollment Provides verbal consent for enrollment CCM Program Enrollment Verbally agreed to receive CCM services CCM Written Consent Written consent obtained CCM Verbal Consent By Self 12/18/22 10:00:00 Result Name Value Comment HIPPA Verified Type of Contact Telephone CM Preferred Spoken Language Zimbabwean CM Preferred Written Language Zimbabwean Preferred Communication Mode Verbal Ability to Read/Write Able to read, Able to write Best Time to Visit or Contact 10-1 pm Best Day to Visit or Contact Thursday, Thursday, Appointment Reminders Phone Preferred Way to Send PHI Standard mail Able to Read Zimbabwean Able to read Zimbabwean Learning Style Pref Patient None Learning Style Pref Parent/Guardian None Teaching Method Printed materials Barriers to Learning None evident Cognitive Deficit No Response to Current Year Correct Response to Current Month Correct Response to Current Time Correct Count Backward 20 to 1 Correct [facility] Test Score Indication None or no significant (more content not included)... Normal [facility] Free K+L Lt Chains,Qn,Son Immunoglobulin light chains.kappa.free (S) [Mass/Vol] 50.2 mg/L High 3.3-19.4 [facility] Comment on above: Performed By: #### 2 [id number] #### [facility] [address] [place] [address] Immunoglobulin light chains.kappa.free/I mmunoglobulin light chains.lambda.free (S) [Mass ratio] 1.77 High 0.26-1.65 [facility] Comment on above: Result Comment: Perf ormed at: [facility] [address] [id number] PhD Daniel Potter Performed By: #### 2 [id number] #### [facility] [address] [place] [address] Immunoglobulin light chains.lambda.free [Mass/Vol] 28.4 mg/L High 5.7-26.3 [facility] Comment on above: Performed By: #### 2 [id number] #### [facility] [address] [place] [address] YAJAIRA and PE, Serumon 03-01-20 24 Albumin [Mass/Vol] 3.5 g/dL Invalid Interpretation Code 2.9-4.4 [facility] Comment on above: Performed By: #### 1 [id number] #### [facility] [address] [place] [address] Albumin/Globulin [Mass ratio] 1.1 {ratio} Invalid Interpretation Code 0.7-1.7 [facility] Comment on above: Performed By: #### 1 [id number] #### [facility] [address] [place] [address] Alpha 1 globulin Elph [Mass/Vol] 0.3 g/dL Invalid Interpretation Code 0.0-0.4 [facility] Comment on above: Performed By: #### 1 [id number] #### [facility] [address] [place] [address] Alpha 2 globulin Elph [Mass/Vol] 0.9 g/dL Invalid Interpretation Code 0.4-1.0 [facility] Comment on above: Performed By: #### 1 [id number] #### [facility] [address] [place] [address] Beta globulin Elph [Mass/Vol] 1.1 g/dL Invalid Interpretation Code 0.7-1.3 [facility] Comment on above: Performed By: #### 1 [id number] #### [facility] [address] [place] [address] Gamma globulin Elph [Mass/Vol] 1.2 g/dL Invalid Interpretation Code 0.4-1.8 [facility] Comment on above: Performed By: #### 1 [id number] #### [facility] [address] [place] [address] Globulin (S) [Mass/Vol] 3.4 g/dL Invalid Interpretation Code 2.2-3.9 [facility] Comment on above: Performed By: #### 1 [id number] #### [facility] [address] [place] [address] IgA [Mass/Vol] 415 mg/dL Invalid Interpretation Code 64-422 [facility] Comment on above: Performed By: #### 1 [id number] #### [facility] [address] [place] [address] IgG [Mass/Vol] 1263 mg/dL Invalid Interpretation Code [id number] [facility] Comment on above: Performed By: #### 1 [id number] #### [facility] [address] [place] [address] IgM [Mass/Vol] 55 mg/dL Invalid Interpretation Code 26-217 [facility] Comment on above: Performed By: #### 1 [id number] #### [facility] [address] [place] [address] Interpretation IEP [Interp] Comment Abnormal [facility] Comment on above: Result Comment: 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 PLEASE NOTE: Samples from patients receiving DARZALEX(R) (daratumumab) or SARCLISA(R)(isatuximab-irfc) treatment can appear as an IgG kappa and mask a complete response (CR). If this patient is receiving these therapies, this YAJAIRA assay interference can be removed by ordering test number [id number]- Immunofixation, Daratumumab-Specific, Serum or [id number]- Immunofixation, Isatuximab-Specific, Serum and submitting a new sample for testing or by calling the lab to add this test to the current sample. Performed By: #### 1 [id number] #### [facility] [address] [place] [address] Laboratory comment Francisco (Report) Comment Invalid Interpretation Code [facility] Comment on above: Result Comment: Prot ein electrophoresis scan will follow via computer, mail, or newscast director delivery. Performed at: [address] [id number] PhD Daniel Potter Performed By: #### 1 [id number] #### [facility] [address] [place] [address] Protein [Mass/Vol] 6.9 g/dL Invalid Interpretation Code 6.0-8.5 [facility] Comment on above: Performed By: #### 1 [id number] #### [facility] [address] [place] [address] Protein.monoclonal Elph [Mass/Vol] 0.6 gm/dL High Not Observed [facility] Comment on above: Performed By: #### 1 [id number] #### [facility] [address] [place] [address] Immunoglobs. A/E/G/Mon 03-01 IgE Qn 234 International_Unit/mL Invali d Interpretation Code 6-823 [facility] Comment on above: Result Comment: Perf ormed at: [facility] [address] [id number] MD Sunny Brown Performed By: #### 1 [id number] #### [facility] [address] [place] [address] Ambulatory Visit Summaryon 0 02-29-2024 Ambulatory Visit Summary Ambulatory Visit Summary JERRICA ROCK Jo :1935 Visit Date:02/29/2024 Ambulatory Visit Instructions Your Diagnosis Benign hypertension with chronic kidney disease Chronic kidney disease, stage 3a Hyperlipidemia Hyperglycemia Memory loss Back pain, chronic Vitamin D deficiency GERD (gastroesophageal reflux disease) Adult BMI 33.0-33.9 kg/sq m Other obesity Macular degeneration Skin lesion of right leg These Are Your Goals Hyperglycemia:Maintain Hem A1C below 5.9% 09/10/2022 - Progressing Interventions: Complete lab work as ordered - Progressing Eat a balanced diet - Progressing Maintain an active lifestyle - Progressing Review education material - Done Hypertension:Maintain BP within a therapeutic range Interventions: Maintain an active lifestyle - Progressing Monitor BP as needed - Progressing Monitor sodium intake - Progressing Review education material - Done Hyperlipidemia: Maintain lipid profile within a therapeutic range - Progressing Interventions: Avoid foods high in saturated fats/fried foods - Progressing Complete lab work as ordered - Progressing Increase fruits and vegetables in diet - Progressing Maintain an active lifestyle - Progressing Review education material - Done Vitamin D deficiency:Maintain therapeutic levels - Progressing Interventions: Complete lab work as ordered - Progressing Monitor for symptoms(Bone/muscle pain, frequent falls and broken bones by minor injuries - Progressing Perform low impact exercises daily - Progressing Review education material - Done Your Care Team Attending Physician - Yelena MICHELLE MD Primary Care Physician - Yelena MICHELLE MD This Is Your Medications List Contact prescribing physician if questions or concerns aspirin (aspirin 81 mg Oral EC Tab) calcium-vitamin D (Calcium Plus Vitamin D3) cholecalciferol (Vitamin D3 1000 intl units (25 mcg) Tab) diphenhydrAMINE (Benadryl) letrozole (Femara 2.5 mg Tab) loperamide metoprolol (Toprol XL 50 mg Tab-ER) multivitamin with minerals (PreserVision AREDS 2 oral capsule) pantoprazole (Pantoprazole [address] Tab) psyllium (Metamucil) Procedures Performed Lumpectomy of right breast (04/15/2023), Cystoscopic laser lithotripsy of ureteric calculus (09/05/2022), Cystoscopic insertion of ureteric stent (07/23/2022), Injection of nerve root of lumbar spine using fluoroscopic guidance (03/19/2022), Nerve blocks in lower limb (11/13/2021), Injection of nerve root of lumbar spine using fluoroscopic guidance (10/30/2021), Injection of facet joint using fluoroscopic guidance (12/26/2020), Esophagogastroduodenoscopy (11/07/2020), Knee replacement (07/09/2020), Colonoscopy (03/30/2015), Block, Cataract extraction and implantation of intraocular lens. Discharge Vitals Temperature (Oral) 36.7 ?C Heart Rate (Peripheral) 80 Blood Pressure 138/84 Height 64 in Height 162 cm Weight 192.94 lb Weight 87.7 kg BMI 33.42 What to do next Scheduled Follow-Up Appointments Thursday 3:00 PM EDT With: Sandoval CHERY, Regina He Where: [facility] Thursday 1:40 PM EDT With: Yelena Osorio MD Where: [facility] [address], [address] [place] [address]- Thursday 10:00 AM EDT With: CORAZON FRANCIS PA-C Where: [facility] [place] [address] [place] [address]- Thursday 12:15 PM EST With: Jt CHERY, Radha Kim Where: [facility] [address] [place] [address]- 2023 10:45 AM EST With: Trever CHERY, Jan Haas Where: Cardiology Clinic Thursday 2:30 PM EDT With: Where: [facility] [address], [place] [address]- You Need to Schedule the Following Appointments Follow Up with WAYNE CHERY, CHRISTIE Elizondo When: In 4 months Where: [facility] [address], [place] [address]- You Need to Complete the Following CBC w/ Auto Diff, Blood, Routine collect, 02/29/24, Order for future visit, Lab Collect, Benign hypertension with chronic kidney disease, Not Required, Print Label By Order Location Comprehensive Metabolic Panel, Blood, Routine collect, 02/29/24, Order for future visit, Lab Collect, Chronic kidney disease, stage 3a Hyperlipidemia, Not Required, Print Label By Order Location HgbA1c, Blood, Routine collect, 02/29/24, Order for future visit, Lab Collect, Hyperglycemia, Required & Missing, Print Label By Order Location Lipid Panel, Blood, Routine collect, 02/29/24, Order for future visit, Lab Collect, Hyperlipidemia, Not Required, Print Label By Order Location Someone Will Contact You Regarding These Appointments [facility] [place] [place] External Am (more content not included)... Normal [facility] ED Pat Eduon 02-29-2024 [facility] ED [facility] Oncology Monoclonal Gammopathy of Undetermined Significance Monoclonal gammopathy of undetermined significance (MGUS) is a condition in which there is too much of a protein called monoclonal protein, or M protein, in the blood. MGUS can cause you to have too many cells in your blood and not enough space for healthy cells. This condition may not have any symptoms, but it may increase your risk of developing multiple myeloma or other blood disorders in the future. What are the causes? The cause of this condition is not known. Genetics and the environment may play a role. What increases the risk? You are more likely to develop this condition if: ? You are . ? You are age 50 or older. ? You are male. ? You have an autoimmune disease. ? You have been exposed to radiation. ? You have a family history of MGUS. What are the signs or symptoms? There are usually no symptoms of this condition. In rare cases, some people may have: ? Numbness or tingling in the hands, lower legs, or feet. ? Bone problems. ? Frequent infections. How is this diagnosed? This condition may be diagnosed with tests that check for the M protein, such as: ? A blood test. ? A urine test. How is this treated? Treatment may involve monitoring your condition. This may include: ? Having regular exams. This will allow your health care provider to monitor your health. ? Having tests done regularly, such as: ? Blood tests to check for M protein in your body. ? Imaging tests, such as a CT scan. ? A bone marrow biopsy. This test involves taking a sample of bone marrow from your body so it can be checked under a microscope. Follow these instructions at home: ? Take sboz-jtc-rzeyfmy and prescription medicines only as told by your health care provider. ? Keep all follow-up visits. Where to find more information ? International Myeloma Foundation: myeloma.org Contact a health care provider if: ? You have trouble swallowing. ? You have pain in your back or ribs. ? You have numbness or tingling in your hands, lower legs, or feet. ? You have a fever. ? You are bruising easily. Get help right away if: ? You break a bone. ? You have trouble breathing. Summary ? Monoclonal gammopathy of undetermined significance (MGUS) is a condition in which there is too much of a protein called monoclonal protein, or M protein, in the blood. ? This condition may be diagnosed with a blood test that checks for M protein. ? Treatment for this condition may involve having tests done regularly. Tests may include blood tests, imaging tests, and a bone marrow biopsy. This information is not intended to replace advice given to you by your health care provider. Make sure you discuss any questions you have with your health care provider. Document Revised: 08/20/2022 Document Reviewed: 08/20/2022 [employer] Patient Education ? 2022 [employer] Shahzad Hong [facility] Family Medicine Office/Clini c Noteon 02-29-2024 Family Medicine Office/Clinic Note Family Medicine Office/Clinic Note Chief Complaint Patient here for 3 month f/u on htn. C/o sore on right lower leg since September--scab keeps falling off but never heals. History of Present Illness Here for med follow up. She has been feeling ok. She has htn. She denies CP or SOB. She has a hx of breast cancer and sees surgery and oncology. She spends a long time complaining about her retina doctor. She states at the last appt she thinks they were about to give her the wrong medication. I asked her to talk with her usual ophtho Dr. Morrison. She has had a sore on her R lower leg that scabs up then comes off but keeps recurring. She states she cut it 4 months ago and it will not heal. Review of Systems PHQ Score Initial Depression Screen Score: 0 SCORE Physical Exam Vitals & Measurements T: 36.7 ?C(Oral) HR: 80(Peripheral) BP: 138/84 SpO2: 96% HT: 64 in HT: 162 cm WT: 87.7 kg WT: 192.94 lb BMI: 33.42 General: Well developed, well nourished, in no acute distress Eyes: Pupils equal, round, and reactive to light. Conjunctivae and sclerae normal, and extraocular movements intact Ears: _supple Nose: No deformity, discharge, inflammation, or lesions Mouth: MMM. Oropharynx and posterior pharynx without lesions or exudates. Tongue WNL Neck: _supple, no bruit Lungs: Normal respiratory effort and clear to auscultation Cardio: RRR, 2/6 murmur Abdomen: Soft, non-distended, non-tender Musculoskeletal: No joint swelling or synovitis noted Extremity: No clubbing, cyanosis or edema. Neurologic: CN 2-12 intact, no focal motor or sensory defects noted.Good recall of recent events. Skin: _R lower leg above her R medial ankle with 8 mm scab. Mild tenderness. Mental Status: Alert and oriented x3. Normal mood and affect Assessment/Plan 1. Benign hypertension with chronic kidney disease (I12.9: Hypertensive chronic kidney disease with stage 1 through stage 4 chronic kidney disease, or unspecified chronic kidney disease) stay on metoprolol Ordered: CBC w/ Auto Diff 2. Chronic kidney disease, stage 3a (N18.31: Chronic kidney disease, stage 3a) eGFR: 54 mL/min/1.73 m2 Low (02/25/24 11:19:00) Creatinine: 1 mg/dL (02/25/24 11:19:00) lab is stable Ordered: Comprehensive Metabolic Panel 3. Hyperlipidemia (E78.5: Hyperlipidemia, unspecified) Chol: 179 mg/dL (09/29/23 08:23:00) HDL: 43 mg/dL (09/29/23 08:23:00) LDL Direct: 117 mg/dL (09/29/23 08:23:00) Tri mg/dL (09/29/23 08:23:00) VLDL: 25 mg/dL (09/29/23 08:23:00) keep on diet Ordered: Comprehensive Metabolic Panel Lipid Panel 4. Hyperglycemia (R73.9: Hyperglycemia, unspecified) Hgb A1C %: 6 % High (09/29/23 08:23:00) Ordered: HgbA1c 5. Memory loss (R41.3: Other amnesia) mild will monitor 6. Back pain, chronic (M54.9: Dorsalgia, unspecified) no change 7. Vitamin D deficiency (E55.9: Vitamin D deficiency, unspecified) Vitamin D 25 Hydroxy: 38.6 ng/mL (09/29/23 08:23:00) 8. GERD (gastroesophageal reflux disease) (K21.9: Gastro-esophageal reflux disease without esophagitis) controlled on pantoprazole 9. Adult BMI 33.0-33.9 kg/sq m (Z68.33: Body mass index [BMI] 33.0-33.9, adult) The standard range for ages 18 and older is >=18.5 and < 25 kg/m2. Your BMI today was above this range, this falls in the overweight to obese category and there are medical benefits to weight loss. We can offer counselling, referral, and/or medical support in addressing this problem. Your BMI and weight management will be followed at subsequent visits. 10. Other obesity (E66.8: Other obesity) 11. 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 Morrison. 12. Skin lesion of right leg (L98.9: Disorder of the skin and subcutaneous tissue, unspecified) Ordered: [facility] [place] External Ambulatory Referral Orders: metoprolol, 25 mg = 1 tab(s), Oral, Daily, # 30 tab(s), Refills(s) 6, Pharmacy: [facility]/pharmacy #[id number], 162, cm, 09/17/23 13:16:00 EST, Height/Length Dosing, 88.7, kg, 09/17/23 13:16:00 EST, Weight Dosing Follow-up With When Contact Information WAYNE CHERY, CHRISTIE Elizondo In 4 months [facility] [place] Med [place] [address], [place] [address]- Additional Instructions: Patient Education Chronic Kidney Disease, Adult, [id number] Problem List/Past Medical History Ongoing Back pain, 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 Breast cancer, right Chronic kidney disease, stage 3a Cystocele with rectocele Dyssynergic defecation Edema Encounter for follow-up surveillance of breast cancer Fecal incontinence GERD (gastroesophageal reflux disease) Heart murmur History of colon polyps History of gastric ulcer History of kidney stones Hoarseness Hyperglycemia Hyperlipidemia Hypertension Long-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 Macular degeneration Memory loss Osteoarth (more content not included)... Normal [facility] Comment on above: Result Comment: Elec tronically Signed By: Yelena MICHELLE MD\\.br\\Date and Time Signed: 02/29/24 09:39 EDT CBC w/ Auto Diffon 4 Basophils/100 WBC (Bld) 0.6 % Normal 0.0-2.0 [facility] Comment on above: Performed By: #### 2 [id number] #### [facility] [address] [place] [address] Basophils/Leukocyte s Auto (Bld) [Pure # fraction] 0.1 E9/L Normal 0.0-0.2 [facility] Comment on above: Performed By: #### 2 [id number] #### [facility] [address] [place] [address] Eosinophils (Bld) [#/Vol] 0.6 E9/L High 0.0-0.5 [facility] Comment on above: Performed By: #### 2 [id number] #### [facility] [address] [place] [address] Eosinophils/100 WBC (Bld) 7.1 % Normal 0.0-8.0 [facility] Comment on above: Performed By: #### 2 [id number] #### [facility] [address] [place] [address] Erythrocyte distribution width (RBC) [Ratio] 14.5 % High 10.9-14.2 [facility] Comment on above: Performed By: #### 2 [id number] #### [facility] [address] [place] [address] Hematocrit (Bld) [Volume fraction] 41.6 % Normal 34.0-46.0 [facility] Comment on above: Performed By: #### 2 [id number] #### [facility] [address] [place] [address] Hemoglobin (Bld) [Mass/Vol] 14.1 g/dL Normal 12.0-16.0 [facility] Comment on above: Performed By: #### 2 [id number] #### [facility] [address] [place] [address] Lymphocytes (Bld) [#/Vol] 2.7 E9/L Normal 1.0-4.0 [facility] Comment on above: Performed By: #### 2 [id number] #### [facility] [address] [place] [address] Lymphocytes/100 WBC (Bld) 31.2 % Normal 14.0-50.0 [facility] Comment on above: Performed By: #### 2 [id number] #### [facility] [address] [place] [address] MCH (RBC) [Entitic mass] 29.6 pg Normal 27.0-34.0 [facility] Comment on above: Performed By: #### 2 [id number] #### [facility] [address] [place] [address] MCHC (RBC) [Mass/Vol] 34.0 g/dL Normal 31.4-36.0 [facility] Comment on above: Performed By: #### 2 [id number] #### [facility] [address] [place] [address] MCV (RBC) [Entitic vol] 87.0 fL Normal 80.0-100.0 [facility] Comment on above: Performed By: #### 2 [id number] #### [facility] [address] [place] [address] Monocytes (Bld) [#/Vol] 0.8 E9/L Normal 0.2-1.0 [facility] Comment on above: Performed By: #### 2 [id number] #### [facility] [address] [place] [address] Neutrophils (Bld) [#/Vol] 4.5 E9/L Normal 2.0-7.5 [facility] Comment on above: Performed By: #### 2 [id number] #### [facility] [address] [place] [address] Neutrophils/100 WBC (Bld) 51.9 % Normal 36.0-75.0 [facility] Comment on above: Performed By: #### 2 [id number] #### [facility] [address] [place] [address] Platelet 209.0 E9/L Normal 150.0-500. 0 [facility] Comment on above: Performed By: #### 2 [id number] #### [facility] [address] [place] [address] Platelet mean volume (Bld) [Entitic vol] 10.5 fL Normal 6.4-10.8 [facility] Comment on above: Performed By: #### 2 [id number] #### [facility] [address] [place] [address] RBC (Bld) [#/Vol] 4.8 E12/L Normal 4.3-5.9 [facility] Comment on above: Performed By: #### 2 [id number] #### [facility] [address] [place] [address] WBC corrected for nucl RBC Auto (Bld) [#/Vol] 8.8 E9/L Normal 4.0-11.0 [facility] Comment on above: Performed By: #### 2 [id number] #### [facility] [address] [place] [address] CMPon 02-25-2024 Albumin [Mass/Vol] 4.0 g/dL Normal 3.3-5.0 [facility] Comment on above: Performed By: #### 2 [id number] #### [facility] [address] [place] [address] Albumin/Globulin (S) [Mass conc ratio] 1.2 Normal 1.1-2.2 [facility] Comment on above: Performed By: #### 2 [id number] #### [facility] [address] [place] [address] ALP [Catalytic activity/Vol] 105 Int._Unit/L High 21-98 [facility] Comment on above: Performed By: #### 2 [id number] #### [facility] [address] [place] [address] ALT No additional P-5'-P [Catalytic activity/Vol] 11 Int._Unit/L Normal 6-46 [facility] Comment on above: Performed By: #### 2 198705 #### [facility] [address] [place] [address] Anion gap [Moles/Vol] 12 mmol/L Normal 6-16 [facility] Comment on above: Performed By: #### 2 555143 #### [facility] [address] [place] [address] AST [Catalytic activity/Vol] 16 Int._Unit/L Normal 5-43 [facility] Comment on above: Performed By: #### 2 158312 #### [facility] [address] [place] [address] Bilirubin [Mass/Vol] 0.5 mg/dL Normal 0.0-1.1 [facility] Comment on above: Performed By: #### 2 [id number] #### [facility] [address] [place] [address] Calcium [Mass/Vol] 9.8 mg/dL Normal 8.9-11.1 [facility] Comment on above: Performed By: #### 2 [id number] #### [facility] [address] [place] [address] Chloride [Moles/Vol] 109 mmol/L Normal 101-111 [facility] Comment on above: Performed By: #### 2 [id number] #### [facility] [address] [place] [address] CO2 [Moles/Vol] 23 mmol/L Normal 21-31 [facility] Comment on above: Performed By: #### 2 [id number] #### [facility] [address] [place] [address] Creatinine [Mass/Vol] 1.0 mg/dL Normal 0.5-1.3 [facility] Comment on above: Performed By: #### 2 048093 #### [facility] [address] [place] [address] Globulin (S) [Mass/Vol] 3.3 g/dL Normal 1.4-4.0 [facility] Comment on above: Performed By: #### 2 [id number] #### [facility] [address] [place] [address] Glucose [Mass/Vol] 104 mg/dL Normal 55-199 [facility] Comment on above: Performed By: #### 2 [id number] #### [facility] [address] [place] [address] Potassium [Moles/Vol] 3.8 mmol/L Normal 3.5-5.3 [facility] Comment on above: Performed By: #### 2 [id number] #### [facility] [address] [place] [address] Protein [Mass/Vol] 7.3 g/dL Normal 6.0-7.8 [facility] Comment on above: Performed By: #### 2 068738 #### [facility] [address] [place] [address] Sodium [Moles/Vol] 140 mmol/L Normal 135-145 [facility] Comment on above: Performed By: #### 2 482656 #### [facility] [address] [place] [address] Urea nitrogen [Mass/Vol] 18 mg/dL Normal 5-21 [facility] Comment on above: Performed By: #### 2 [id number] #### [facility] [address] [place] [address] Urea nitrogen/Creatinine [Mass ratio] 18 No Units Normal 10-20 [facility] Comment on above: Performed By: #### 2 [id number] #### [facility] [address] [place] [address] eGFRon 02-25-2024 eGFR 54 mL/min/1.73 m2 Low >=59 [facility] Comment on above: Order Comment: Order added by Discern Expert. Performed By: #### 1 [id number] #### [facility] [address] [place] [address] MA Mamm Diag w/CAD if perf a nd 3D Bilon 02-17-2024 MA Mamm Diag w/CAD if perf and 3D Azeem Exam Date/Time: 02/17/2024 10:32 EDT Reason for Exam: Z85.3;Breast Cancer, personal history of Report IMPRESSION: BIRADS 2 BENIGN FINDINGS, NORMAL INTERVAL FOLLOW-UP. CLINICAL HISTORY: Breast Cancer, personal history of, Z85.3. First mammogram since right lumpectomy in March 2023 for invasive lobular carcinoma, with 5 rounds of radiation. Also on letrozole. COMPARISON: Priors from 2022, 2021, 2019. RESULT: Digital mammography and 3D tomosynthesis of bilateral breasts was performed. Scattered areas of fibroglandular density. Interval postsurgical changes within the right breast upper outer quadrant from lumpectomy with increased density of the right upper quadrant likely postsurgical. Skin thickening from interval radiation. Coarse calcifications including vascular calcifications. Vascular calcifications: Present. CAD analysis was performed and used in the interpretation. Dense Breast: No Follow-up: 12 MONTH RECALL. Board Certified Radiologists. Accredited by the ACR and FDA. MAMMOGRAPHY IS VERY IMPORTANT TO YOUR HEALTH. THE [employer] GUIDELINES RECOMMEND THAT WOMEN 40 YEARS OF AGE AND OLDER SHOULD HAVE A MAMMOGRAM EVERY YEAR. A REMINDER LETTER WILL BE SENT AT THE APPROPRIATE TIME. THIS FACILITY UTILIZES A REMINDER SYSTEM TO ENSURE ALL PATIENTS RECEIVE REMINDER NOTIFICATIONS AT THE APPROPRIATE TIME BASED ON THE RECOMMENDATIONS OF THIS EXAM. THIS INCLUDES REMINDERS FOR ROUTINE SCREENING MAMMOGRAMS, DIAGNOSTIC MAMMOGRAMS IN WHICH THE PATIENT IS ASKED TO RETURN FOR ADDITIONAL VIEWS, OR OTHER BREAST IMAGING INTERVENTIONS WHEN APPROPRIATE. THE PATIENT WILL BE PLACED IN THE APPROPRIATE REMINDER SYSTEM INCLUDING A REMINDER AT THE APPROPRIATE TIME FOR ANY PENDING ADDITIONAL VIEWS. Report Ordering Provider: Regina Nick FINAL REPORT Dictated: 02/17/2024 10:54 am Aly Butler MD Signed (Electronic Signature): 02/17/2024 10:54 am Signed by: Aly Butler MD Transcribed by: SHILPA Technologist: KERRI Assessment: BI-RADS Category 2-Benign finding Recommendation: Normal interval follow-up Normal [facility] 02-04-20 [facility] Case Information Case Priority: None Programs: -- Referral Source: [employer] Referral Reason: Disease management Case Type: Chronic Care Management Risk Score: -- Case Status: Active (December 25, 2022) Date Assigned: December 11, 2022 Assigned By: Sofie Pop RN Date Enrolled: December 18, 2022 Assigned Primary Personnel: Sofie Pop RN Assigned Secondary Personnel: -- Case Physician: Yelena MICHELLE MD Problems Ongoing Abnormal CBC Back pain, 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 Breast cancer, right Chronic kidney disease, 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 Edema Encounter for annual wellness visit (AWV) in Medicare patient Encounter for follow-up surveillance of breast cancer Fecal incontinence GERD (gastroesophageal reflux disease) Heart murmur History of colon polyps History of gastric ulcer History of kidney stones Hoarseness Hyperglycemia Hyperlipidemia Hyperproteinemia Hypertension Irregular bowel habits Long-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 Macular degeneration Memory loss Nocturia Osteoarthritis of knees, bilateral Osteopenia Ovarian failure due to menopause Recurrent UTI Tachycardia Tortuous aorta Unsteadiness Urge incontinence Vitamin D deficiency Historical Breast cancer Dysphagia Elevated alkaline phosphatase level Spinal stenosis NOS Procedure/Surgical History Lumpectomy of right breast (04/15/2023), Cystoscopic laser lithotripsy of ureteric calculus (09/05/2022), Cystoscopic insertion of ureteric stent (07/23/2022), Injection of nerve root of lumbar spine using fluoroscopic guidance (03/19/2022), Nerve blocks in lower limb (11/13/2021), Injection of nerve root of lumbar spine using fluoroscopic guidance (10/30/2021), Injection of facet joint using fluoroscopic guidance (12/26/2020), Esophagogastroduodenoscopy (11/07/2020), Knee replacement (07/09/2020), Colonoscopy (03/30/2015), Block, Cataract extraction and implantation of intraocular lens. Home Medications aspirin 81 mg Oral EC Tab, 81 mg= 1 tab(s), Oral, Daily Benadryl, 25 mg, Oral, Once a day (at bedtime) Calcium Plus Vitamin D3, 1 tab, Oral, BID Femara 2.5 mg Tab, 2.5 mg= 1 tab(s), Oral, Daily, 1 refills loperamide, PRN Metamucil, 1.7 gm, Oral, Daily Pantoprazole [address] Tab, 40 mg= 1 tab(s), Oral, Daily, 1 refills PreserVision AREDS 2 oral capsule, 1 tab, Oral, BID Toprol XL 25 mg Tab-ER, 25 mg= 1 tab(s), Oral, Daily, 6 refills, Not taking: dosage increased to 50 mg tablet once a day Toprol XL 50 mg Tab-ER, 50 mg= 1 tab(s), Oral, Daily, 5 refills Vitamin D3 1000 intl units (25 mcg) Tab, 25 mcg= 1 tab(s), Oral, Daily Allergies No Known Allergies Social History Alcohol - Low Risk, 01/09/2021 Current, 1-2 times per month, 04/10/2023 Current, Liquor, burbon or citizen of [place] whiskey, 3-5 times per week, 1 drinks/episode average. 1.00 drinks/episode maximum. Previous treatment: None. Alcohol use interferes with work or home: No. Drinks more than intended: No. Others hurt by drinking: No. Ready to change: No. Household alcohol concerns: No., 01/13/2023 Exercise Substance Abuse - Denies Substance Abuse, 09/07/2011 Household substance abuse concerns: No., 01/13/2023 Tobacco - Denies Tobacco Use, 09/07/2011 Never (less than 100 in lifetime) Tobacco Use:. Never Smokeless Tobacco Use:. Household tobacco concerns: No., 01/11/2024 Family History Acute myocardial infarction: Brother. COPD: Mother. Diabetes mellitus type 1: Brother. Heart failure: Brother. Primary malignant neoplasm of female breast: Aunt. Screenings and Assessments 02/10/23 10:07:00 Result Name Value Comment Phone Call Monitoring Consent Agreed to continue call Phone Verification Patient Information Full name, street address and date of verified CM Program Enrollment Provides verbal consent for enrollment CCM Program Enrollment Verbally agreed to receive CCM services CCM Written Consent Written consent obtained CCM Verbal Consent By Self 12/18/22 10:00:00 Result Name Value Comment HIPPA Verified Type of Contact Telephone CM Preferred Spoken Language Zimbabwean CM Preferred Written Language [place]an Preferred Communication Mode Verbal Ability to Read/Write Able to read, Able to write Best Time to Visit or Contact 10-1 pm Best Day to Visit or Contact Thursday, Thursday, Appointment Reminders Phone Preferred Way to Send PHI Standard mail Able to Read Zimbabwean Able to read Zimbabwean Learning Style Pref Patient None Learning Style Pref Parent/Guardian None Teaching Method Printed materials Barriers to Learning None evident (more content not included)... Normal [facility] CHEMISTRYOrdered By: SYSTEM SYSTEM on 10-03-2023 Potassium [Moles/Vol] 4.4 mmol/L Normal 3.5 - 5.3 mmol/L [facility] CHEMISTRYOrdered By: SYSTEM SYSTEM on 10-02-2023 Anion gap [Moles/Vol] 11 mmol/L Normal 6 - 16 mEq/L [facility] Calcium [Mass/Vol] 8.6 mg/dL Low 8.9 - 11. 1 mg/dL [facility] Chloride [Moles/Vol] 110 mmol/L Normal 101 - 111 mmol/L [facility] CO2 [Moles/Vol] 23 mmol/L Normal 21 - 31 mmol/L [facility] Creatinine [Mass/Vol] 0.8 mg/dL Normal 0.5 - 1.3 mg/dL [facility] eGFR 71 mL/min/1.73 m2 Normal >=59mL/min /1.73 m2 [facility] Glucose [Mass/Vol] 93 mg/dL Normal 55 - 199 mg/dL [facility] Potassium [Moles/Vol] 3.6 mmol/L Normal 3.5 - 5.3 mmol/L [facility] Sodium [Moles/Vol] 140 mmol/L Normal 135 - 145 mmol/L [facility] Urea nitrogen [Mass/Vol] 24 mg/dL High 5 - 21 mg/dL [facility] Urea nitrogen/Creatinine [Mass ratio] 30 mg/mg High 10 - 20 [facility] CHEMISTRYOrdered By: SYSTEM SYSTEM on 10-01-2023 Anion gap [Moles/Vol] 12 mmol/L Normal 6 - 16 mEq/L [facility] Calcium [Mass/Vol] 8.9 mg/dL Normal 8.9 - 11. 1 mg/dL [facility] Chloride [Moles/Vol] 106 mmol/L Normal 101 - 111 mmol/L [facility] CO2 [Moles/Vol] 24 mmol/L Normal 21 - 31 mmol/L [facility] Creatinine [Mass/Vol] 1.0 mg/dL Normal 0.5 - 1.3 mg/dL [facility] CRP [Mass/Vol] 11.0 mg/dL High <=1.9mg/dL [facility] em eGFR 55 mL/min/1.73 m2 Low >=59mL/min /1.73 m2 [facility] Glucose [Mass/Vol] 97 mg/dL Normal 55 - 199 mg/dL [facility] Magnesium [Mass/Vol] 2.0 mg/dL Normal 1.3 - 2.4 mg/dL [facility] Potassium [Moles/Vol] 3.8 mmol/L Normal 3.5 - 5.3 mmol/L [facility] Sodium [Moles/Vol] 138 mmol/L Normal 135 - 145 mmol/L [facility] Total CK 92 [iU]/d Normal 14 - 261 Int._Unit/ L [facility] TSH Qn 2.33 m[IU]/L Normal 0.34 - 5.60 mcIU/mL [facility] Urea nitrogen [Mass/Vol] 26 mg/dL High 5 - 21 mg/dL [facility] Urea nitrogen/Creatinine [Mass ratio] 26 mg/mg High 10 - 20 [facility] Troponin 27.90 pg/mL High 10.10 - 27.10 pg/mL [facility] Comment on above: Interpretive Data: T he 95% CI (Confidence Interval) PPV (Positive Predictive Value) for myocardial infarction in females is 38 pg/mL, in males 51 pg/mL. The results should be used in conjunction with clinical conditions of myocardial infarction. (Access High Sensitivity Troponin I Instructions For Use, [employer], February 2018) Troponin 28.40 pg/mL High 10.10 - 27.10 pg/mL [facility] Comment on above: Interpretive Data: T he 95% CI (Confidence Interval) PPV (Positive Predictive Value) for myocardial infarction in females is 38 pg/mL, in males 51 pg/mL. The results should be used in conjunction with clinical conditions of myocardial infarction. (Access High Sensitivity Troponin I Instructions For Use, [employer], February 2018) HEMATOLOGYOrdered By: SYSTEM SYSTEM on 10-01-2023 Band form neutrophils/100 WBC (Bld) 1 % Normal 0 - 6 % [facility] Basophils (Bld) [#/Vol] 0.0 E9/L Normal 0.0 - 0.2 E9/L [facility] Basophils/100 WBC (Bld) 0.0 % Normal 0.0 - 2.0 % [facility] Basophils/100 WBC (Bld) 0.3 % Normal 0.0 - 2.0 % [facility] Basophils/Leukocyte s Auto (Bld) [Pure # fraction] 0.0 E9/L Normal 0.0 - 0.2 E9/L [facility] Erythrocyte distribution width (RBC) [Ratio] 15.8 % High 10.9 - 14.2 % [facility] Hematocrit (Bld) [Volume fraction] 42.0 % Normal 34.0 - 46.0 % [facility] Hemoglobin (Bld) [Mass/Vol] 13.7 g/dL Normal 12.0 - 16.0 gm/dL [facility] Lymphocytes (Bld) [#/Vol] 1.2 E9/L Normal 1.0 - 4.0 E9/L [facility] Lymphocytes (Bld) [#/Vol] 1.4 E9/L Normal 1.0 - 4.0 E9/L [facility] Lymphocytes/100 WBC (Bld) 19.0 % Normal 14.0 - 50.0 % [facility] Lymphocytes/100 WBC (Bld) 21.0 % Normal 14.0 - 50.0 % [facility] MCH (RBC) [Entitic mass] 28.3 pg Normal 27.0 - 34.0 pg [facility] MCHC (RBC) [Mass/Vol] 32.7 g/dL Normal 31.4 - 36.0 gm/dL [facility] MCV (RBC) [Entitic vol] 86.4 fL Normal 80.0 - 100.0 fL [facility] Monocytes (Bld) [#/Vol] 1.2 E9/L High 0.2 - 1.0 E9/L [facility] Monocytes (Bld) [#/Vol] 1.1 E9/L High 0.2 - 1.0 E9/L [facility] Monocytes/100 WBC (Bld) 19.0 % High 4.0 - 14.0 % [facility] Monocytes/100 WBC (Bld) 16.3 % High 4.0 - 14.0 % [facility] Neutrophils (Bld) [#/Vol] 4.0 E9/L Invalid Interpretation Code [facility] Neutrophils (Bld) [#/Vol] 4.1 E9/L Normal 2.0 - 7.5 E9/L [facility] Neutrophils/100 WBC (Bld) 62.4 % Normal 36.0 - 75.0 % [facility] Platelet mean volume (Bld) [Entitic vol] 10.5 fL Normal 6.4 - 10.8 fL [facility] Platelets (Bld) [#/Vol] 140.0 E9/L Low 150.0 - 500.0 E9/L [facility] RBC (Bld) [#/Vol] 4.9 E12/L Normal 4.3 - 5.9 E12/L [facility] RBC size Nom (Bld) NORMAL *NA* (10/01/23 6:27 AM) Invalid Interpretation Code [facility] Segmented neutrophils/100 WBC (Bld) 61 % Normal 50 - 70 % [facility] WBC corrected for nucl RBC Auto (Bld) [#/Vol] 6.5 E9/L Normal 4.0 - 11.0 E9/L [facility] HEMATOLOGYOrdered By: Fatoumata Garcia on 10-01-2023 Path Review Reactive monocytes s een.CPT [id number] Invalid Interpretation Code [facility] - Hematology and Cell countsOrdered By: SYSTEM SYSTEM on 10-01-2023 Eosinophils (Bld) [#/Vol] 0.0 E9/L Normal 0.0 - 0.5 E9/L [facility] Eosinophils/100 WBC (Bld) 0.0 % Normal 0.0 - 8.0 % [facility] CHEMISTRYOrdered By: SYSTEM SYSTEM on 09-30-2023 Anion gap [Moles/Vol] 14 mmol/L Normal 6 - 16 mEq/L [facility] Calcium [Mass/Vol] 8.9 mg/dL Normal 8.9 - 11. 1 mg/dL [facility] Chloride [Moles/Vol] 103 mmol/L Normal 101 - 111 mmol/L [facility] CO2 [Moles/Vol] 25 mmol/L Normal 21 - 31 mmol/L [facility] Creatinine [Mass/Vol] 1.1 mg/dL Normal 0.5 - 1.3 mg/dL [facility] eGFR 49 mL/min/1.73 m2 Low >=59mL/min /1.73 m2 [facility] Glucose [Mass/Vol] 113 mg/dL Normal 55 - 199 mg/dL [facility] Sodium [Moles/Vol] 138 mmol/L Normal 135 - 145 mmol/L [facility] Troponin 30.10 pg/mL High 10.10 - 27.10 pg/mL [facility] Comment on above: Interpretive Data: T he 95% CI (Confidence Interval) PPV (Positive Predictive Value) for myocardial infarction in females is 38 pg/mL, in males 51 pg/mL. The results should be used in conjunction with clinical conditions of myocardial infarction. (Access High Sensitivity Troponin I Instructions For Use, [employer] [place], February 2018) Urea nitrogen [Mass/Vol] 22 mg/dL High 5 - 21 mg/dL [facility] Urea nitrogen/Creatinine [Mass ratio] 20 mg/mg Normal 10 - 20 [facility] Lactic Acid Lvl 0.9 mmol/L Normal 0.5 - 2.2 mmol/L [facility] Albumin [Mass/Vol] 4.0 g/dL Normal 3.3 - 5.0 gm/dL [facility] Albumin/Globulin [Mass ratio] 1.1 {ratio} Normal 1.1 - 2.2 [facility] ALP [Catalytic activity/Vol] 98 [iU]/d Normal 21 - 98 Int._Unit/ L [facility] ALT No additional P-5'-P [Catalytic activity/Vol] 14 [iU]/d Normal 6 - 46 Int._Unit/ L [facility] AST [Catalytic activity/Vol] 21 [iU]/d Normal 5 - 43 Int._Unit/ L [facility] Bilirubin [Mass/Vol] 0.6 mg/dL Normal 0.0 - 1.1 mg/dL [facility] Globulin (S) [Mass/Vol] 3.8 g/dL Normal 1.4 - 4.0 gm/dL [facility] Magnesium [Mass/Vol] 1.9 mg/dL Normal 1.3 - 2.4 mg/dL [facility] Protein [Mass/Vol] 7.8 g/dL Normal 6.0 - 7.8 gm/dL [facility] CHEMISTRYOrdered By: Carlos watkins on 09-30-2023 Natriuretic peptide B (Bld) [Mass/Vol] 711 pg/mL High 5 - 80 pg/mL [facility] [place] HemeManSS CHEMISTRYOrdered By: Rafael ROP User on 09-30-2023 Glucose [Mass/Vol] 110 mg/dL High 55 - 99 mg/dL [facility] [place] POC Subsection POC Device SN [id number] Invalid Interpretation Code [facility] [place] POC Subsection POC User ID [id number] 1 Invalid Interpretation Code [facility] [place] POC Subsection POC Username CATHY CONNER Invalid Interpretation Code [facility] [place] POC Subsection COAGULATIONOrdered By: Spencer Alba on 09-30-2023 aPTT Coag (PPP) [Time] 33.4 s Normal 25.1 - 36.5 second(s) [facility] [place] Auto Coag Comment on above: Interpretive Data: P arameter 15 days - 4 weeks 1 - 5 months 6 - 11 months 1 - 5 years 6 - 10 years 11 - 17 years PTT Mean: 35.4 (27.6-45.6) Mean: 33.5 (24.8-40.7) Mean: 32.4 (25.1-40.7) Mean: 31.6 (24.0-39.2) Mean: 31.6 (26.9-38.7) Mean: 31.0 (24.6-38.4) Pediatric Reference ranges were obtained from a study by Mario Jacobo et al. prepared from 1437 samples obtained at 7 different centers using the same coagulation reagent and instrumentation as [facility] [facility] [place]. Currently there are no coagulation studies available worldwide for children to 14 days, and no normal ranges. Heparin therapeutic range (represented by Anti-Factor Xa activity of 0.2 - 0.4 U/mL) corresponds to PTT of 56.6 - 109.0 sec. INR Coag (PPP) [Relative time] 1.26 {INR} Invalid Interpretation Code [facility] [place] Auto Coag Comment on above: Interpretive Data: I NR results are specifically intended to assess patients stabilized on long-term Anticoagulation therapy suggested INR s Less Intensive Anticoagulation 2.0 3.0 Conventional Range 3.0 4.5 PT Coag (PPP) [Time] 14.2 s High 9.4 - 12.5 second(s) [facility] [place] Auto Coag Comment on above: Interpretive Data: 1 5 days - 4 weeks 1 - 5 months 6 -11 months 1 5 years 6 10 years 11 -17 years Mean: 11.2 (9.5 12.6) Mean: 11.0 (9.7 12.8) Mean: 11.0 (9.8 13.0) Mean: 11.3 (9.9 13.4) Mean: 11.7 (10.0 14.6) Mean: 11.8 (10.0 - 14.1) Pediatric Reference ranges were obtained from a study by Mario Jacobo et al. prepared from 1437 samples obtained at 7 different centers using the same coagulation reagent and instrumentation as [facility] [place]. Currently there are no coagulation studies available worldwide for children to 14 days, and no normal ranges. HEMATOLOGYOrdered By: SYSTEM SYSTEM on 09-30-2023 Basophils/100 WBC (Bld) 0.4 % Normal 0.0 - 2.0 % [facility] Basophils/Leukocyte s Auto (Bld) [Pure # fraction] 0.0 E9/L Normal 0.0 - 0.2 E9/L [facility] Eosinophils (Bld) [#/Vol] 0.0 E9/L Normal 0.0 - 0.5 E9/L [facility] Eosinophils/100 WBC (Bld) 0.0 % Normal 0.0 - 8.0 % [facility] Erythrocyte distribution width (RBC) [Ratio] 15.5 % High 10.9 - 14.2 % [facility] Hematocrit (Bld) [Volume fraction] 43.4 % Normal 34.0 - 46.0 % [facility] Hemoglobin (Bld) [Mass/Vol] 14.5 g/dL Normal 12.0 - 16.0 gm/dL [facility] Lymphocytes (Bld) [#/Vol] 1.3 E9/L Normal 1.0 - 4.0 E9/L [facility] Lymphocytes/100 WBC (Bld) 14.5 % Normal 14.0 - 50.0 % [facility] MCH (RBC) [Entitic mass] 28.7 pg Normal 27.0 - 34.0 pg [facility] MCHC (RBC) [Mass/Vol] 33.4 g/dL Normal 31.4 - 36.0 gm/dL [facility] MCV (RBC) [Entitic vol] 85.9 fL Normal 80.0 - 100.0 fL [facility] Monocytes (Bld) [#/Vol] 1.0 E9/L Normal 0.2 - 1.0 E9/L [facility] Monocytes/100 WBC (Bld) 10.7 % Normal 4.0 - 14.0 % [facility] Neutrophils (Bld) [#/Vol] 6.8 E9/L Normal 2.0 - 7.5 E9/L [facility] Neutrophils/100 WBC (Bld) 74.4 % Normal 36.0 - 75.0 % [facility] Platelet mean volume (Bld) [Entitic vol] 10.5 fL Normal 6.4 - 10.8 fL [facility] Platelets (Bld) [#/Vol] 152.0 E9/L Normal 150.0 - 500.0 E9/L [facility] RBC (Bld) [#/Vol] 5.1 E12/L Normal 4.3 - 5.9 E12/L [facility] WBC corrected for nucl RBC Auto (Bld) [#/Vol] 9.1 E9/L Normal 4.0 - 11.0 E9/L [facility] MICRO OTHER TESTSOrdered By: Spencer Alba on 09-30-2023 Influenzae A Ag Positive *ABN* (09/30/23 6:38 PM) Invalid Interpretation Code Negative [facility] [place] Duy Sero Influenzae B Ag Negative 1 (09/30/23 6:38 PM) Normal Negative [facility] Comment on above: Interpretive Data: T est sensitivity and specificity vary for age group, specimen type, antigen types, and prevalence of disease. Test results must be evaluated in conjunction with other clinical data available to the physician. Individuals who received nasally administered Influenza A vaccine may have positive test results up to 3 days after vaccination. Rapid COV Int NEG Ctl Pass (09/30/23 6:38 PM) Normal [facility] Rapid COV Int POS Ctl Pass (09/30/23 6:38 PM) Normal [facility] SARS-CoV+SARS-CoV-2 (COVID-19) Ag IA.rapid Ql (Resp) Not Detected 8 (09/30/23 6:38 PM) Normal Not Detected [facility] Comment on above: Interpretive Data: T he [employer] Veritor System for Rapid Detection of SARS-CoV-2 is a chromatographic digital immunoassay intended for the direct and qualitative detection of SARS-CoV-2 nucleocapsid antigens in nasal swabs from individuals who are suspected of COVID-19 by their healthcare provider within the first five days of the onset of symptoms. Negative results should be treated as presumptive, do not rule out SARS-CoV-2 infection and should not be used as the sole basis for treatment or patient management decisions, including infection control decisions. Negative results should be considered in the context of a patient s recent exposures, history and the presence of clinical signs and symptoms consistent with COVID-19, and confirmed with a molecular assay, if necessary, for patient management. For in vitro diagnostic use. In the [place], only for use under an Emergency Use Authorization. In the [place], this test has not been FDA cleared or approved; this test has been authorized by FDA under an EUA for use by authorized laboratories; use by laboratories certified under the CLIA, 42 U.S.C. 263a, that meet requirements to perform moderate, high, or waived complexity tests and at the Point of Care (POC), i.e., in patient care settings operating under a CLIA Certificate of Waiver, Certificate of Compliance, or Certificate of Accreditation. This test has been authorized only for the detection of proteins from SARS-CoV-2, not for any other viruses or pathogens; and, in the [place], this test is only authorized for the duration of the declaration that circumstances exist justifying the authorization of emergency use of in vitro diagnostics for detection and/or diagnosis of the virus that causes COVID-19 under Section 564(b)(1) of the Act, 21 U.S.C. 360bbb-3(b)(1), unless the authorization is terminated or revoked sooner. No Panel InformationOrdered By: [facility] on 09-30-2023 Blood Culture Charcoal No growth at 2 days. Final to follow at 7 days. [facility] Blood Culture Charcoal No growth at 2 days. Final to follow at 7 days. [facility] URINALYSISOrdered By: Spencer Alba on 09-30-2023 Bilirubin Ql (U) Negative (09/30/23 6:09 PM) Normal Negative [facility] UA Auto SS Clarity (U) Clear (09/30/23 6:09 PM) Normal Clear [facility] UA Auto SS Color (U) Yellow (09/30/23 6:09 PM) Normal Yellow [facility] UA Auto SS Epithelial cells.squamous LM.HPF (Urine sed) [#/Area] 3-4 /HPF Normal 0-2/HPF [facility] UA Auto SS Glucose Test strip (U) [Mass/Vol] Negative (09/30/23 6:09 PM) Normal Negative [facility] UA Auto SS Hemoglobin Ql (U) 1+ *ABN* (09/30/23 6:09 PM) Invalid Interpretation Code Negative [facility] UA Auto SS Ketones (U) [Mass/Vol] Trace *NA* (09/30/23 6:09 PM) Invalid Interpretation Code Negative [facility] UA Auto SS [place].plasma/Lith ium.RBC (Bld) [Mass ratio] 4-20 /HPF Normal 0-3/HPF [facility] UA Auto SS Mucus Ql (Urine sed) 2+ (09/30/23 6:09 PM) Normal [facility] UA Auto SS Nitrite Ql (U) Negative (09/30/23 6:09 PM) Normal Negative [facility] UA Auto SS pH (U) 6.0 *NA* (09/30/23 6:09 PM) Invalid Interpretation Code 5.0 - 9.0 [facility] [place] UA Auto SS Protein (U) [Mass/Vol] 3+ *ABN* (09/30/23 6:09 PM) Invalid Interpretation Code Negative [facility] [place] UA Auto SS Specific gravity (U) [Rel density] >=1.030 *NA* (09/30/23 6:09 PM) Invalid Interpretation Code 1.005 - 1.030 [facility] [place] UA Auto SS UA Spec Desc Clean Catch (09/30/23 6:09 PM) Normal [facility] [place] UA Auto SS Urobilinogen Qn (U) [id number] {Adrienne'U}/dL Normal 0.0 - 1.0 EU/dL [facility] [place] UA Auto SS WBC Auto Ql (U) Negative (09/30/23 6:09 PM) Normal Negative [facility] [place] UA Auto SS WBC LM.HPF (Urine sed) [#/Area] 0-5 /HPF Normal 0-5/HPF [facility] [place] UA Auto SS CHEMISTRYOrdered By: SYSTEM SYSTEM on 09-16-2023 Troponin 5.60 pg/mL Low 10.10 - 27.10 pg/mL [facility] Comment on above: Interpretive Data: T he 95% CI (Confidence Interval) PPV (Positive Predictive Value) for myocardial infarction in females is 38 pg/mL, in males 51 pg/mL. The results should be used in conjunction with clinical conditions of myocardial infarction. (Access High Sensitivity Troponin I Instructions For Use, [place], February 2018) Anion gap [Moles/Vol] 12 mmol/L Normal 6 - 16 mEq/L [facility] Calcium [Mass/Vol] 9.6 mg/dL Normal 8.9 - 11. 1 mg/dL [facility] Chloride [Moles/Vol] 107 mmol/L Normal 101 - 111 mmol/L [facility] CO2 [Moles/Vol] 28 mmol/L Normal 21 - 31 mmol/L [facility] Creatinine [Mass/Vol] 1.1 mg/dL Normal 0.5 - 1.3 mg/dL [facility] eGFR 49 mL/min/1.73 m2 Low >=59mL/min /1.73 m2 [facility] Glucose [Mass/Vol] 97 mg/dL Normal 55 - 199 mg/dL [facility] Potassium [Moles/Vol] 4.6 mmol/L Normal 3.5 - 5.3 mmol/L [facility] Sodium [Moles/Vol] 142 mmol/L Normal 135 - 145 mmol/L [facility] Troponin 5.90 pg/mL Low 10.10 - 27.10 pg/mL [facility] Comment on above: Interpretive Data: T he 95% CI (Confidence Interval) PPV (Positive Predictive Value) for myocardial infarction in females is 38 pg/mL, in males 51 pg/mL. The results should be used in conjunction with clinical conditions of myocardial infarction. (Access High Sensitivity Troponin I Instructions For Use, [place], February 2018) Urea nitrogen [Mass/Vol] 25 mg/dL High 5 - 21 mg/dL [facility] Urea nitrogen/Creatinine [Mass ratio] 23 mg/mg High 10 - 20 [facility] COAGULATIONOrdered By: Madai Wyman on 09-16-2023 aPTT Coag (PPP) [Time] 33.8 s Normal 25.1 - 36.5 second(s) [facility] [place] Auto Coag Comment on above: Interpretive Data: P rudy 15 days - 4 weeks 1 - 5 months 6 - 11 months 1 - 5 years 6 - 10 years 11 - 17 years PTT Mean: 35.4 (27.6-45.6) Mean: 33.5 (24.8-40.7) Mean: 32.4 (25.1-40.7) Mean: 31.6 (24.0-39.2) Mean: 31.6 (26.9-38.7) Mean: 31.0 (24.6-38.4) Pediatric Reference ranges were obtained from a study by Mario Jacobo et al. prepared from 1437 samples obtained at 7 different centers using the same coagulation reagent and instrumentation as [facility] [place]. Currently there are no coagulation studies available worldwide for children to 14 days, and no normal ranges. Heparin therapeutic range (represented by Anti-Factor Xa activity of 0.2 - 0.4 U/mL) corresponds to PTT of 56.6 - 109.0 sec. INR Coag (PPP) [Relative time] 1.01 {INR} Invalid Interpretation Code [facility] [place] Auto Coag Comment on above: Interpretive Data: I NR results are specifically intended to assess patients stabilized on long-term Anticoagulation therapy suggested INR s Less Intensive Anticoagulation 2.0 3.0 Conventional Range 3.0 4.5 PT Coag (PPP) [Time] 11.2 s Normal 9.4 - 12.5 second(s) [facility] [place] Auto Coag Comment on above: Interpretive Data: 1 5 days - 4 weeks 1 - 5 months 6 -11 months 1 5 years 6 10 years 11 -17 years Mean: 11.2 (9.5 12.6) Mean: 11.0 (9.7 12.8) Mean: 11.0 (9.8 13.0) Mean: 11.3 (9.9 13.4) Mean: 11.7 (10.0 14.6) Mean: 11.8 (10.0 - 14.1) Pediatric Reference ranges were obtained from a study by Mario Jacobo et al. prepared from 1437 samples obtained at 7 different centers using the same coagulation reagent and instrumentation as [facility] [place]. Currently there are no coagulation studies available worldwide for children to 14 days, and no normal ranges. HEMATOLOGYOrdered By: SYSTEM SYSTEM on 09-16-2023 Basophil Absolute 0.0 E9/L Normal 0.0 - 0.2 E9/L [facility] Basophils/100 WBC (Bld) 0.7 % Normal 0.0 - 2.0 % [facility] Eos Absolute 0.4 E9/L Normal 0.0 - 0.5 E9/L [facility] Eosinophils/100 WBC (Bld) 5.8 % Normal 0.0 - 8.0 % [facility] Erythrocyte distribution width (RBC) [Ratio] 15.2 % High 10.9 - 14.2 % [facility] Hematocrit (Bld) [Volume fraction] 42.0 % Normal 34.0 - 46.0 % [facility] Hemoglobin (Bld) [Mass/Vol] 14.0 g/dL Normal 12.0 - 16.0 gm/dL [facility] Lymph Absolute 2.2 E9/L Normal 1.0 - 4.0 E9/L [facility] Lymphocytes/100 WBC (Bld) 32.3 % Normal 14.0 - 50.0 % [facility] MCH (RBC) [Entitic mass] 28.7 pg Normal 27.0 - 34.0 pg [facility] MCHC (RBC) [Mass/Vol] 33.5 g/dL Normal 31.4 - 36.0 gm/dL [facility] MCV (RBC) [Entitic vol] 85.7 fL Normal 80.0 - 100.0 fL [facility] [place] Absolute 0.7 E9/L Normal 0.2 - 1.0 E9/L [facility] Monocytes/100 WBC (Bld) 10.7 % Normal 4.0 - 14.0 % [facility] Neutro Absolute 3.5 E9/L Normal 2.0 - 7.5 E9/L [facility] Neutro Auto 50.5 % Normal 36.0 - 75.0 % [facility] Platelet 196.0 E9/L Normal 150.0 - 500.0 E9/L [facility] Platelet mean volume (Bld) [Entitic vol] 9.5 fL Normal 6.4 - 10.8 fL [facility] RBC 4.9 E12/L Normal 4.3 - 5.9 E12/L [facility] WBC 6.9 E9/L Normal 4.0 - 11.0 E9/L [facility] CHEMISTRYOrdered By: SYSTEM SYSTEM on 07-29-2023 Albumin [Mass/Vol] 4.0 g/dL Normal 3.3 - 5.0 gm/dL [facility] Albumin/Globulin [Mass ratio] 1.1 {ratio} Normal 1.1 - 2.2 [facility] Alk Phos 100 [iU]/d High 21 - 98 Int._Unit/ L [facility] ALT 11 [iU]/d Normal 6 - 46 Int._Unit/ L [facility] AST 16 [iU]/d Normal 5 - 43 Int._Unit/ L [facility] Bili Direct 0.1 mg/dL Normal 0.0 - 0.4 mg/dL [facility] Bili Indirect 0.3 mg/dL Normal 0.1 - 0.9 mg/dL [facility] Bili Total 0.4 mg/dL Normal 0.0 - 1.1 mg/dL [facility] Globulin (S) [Mass/Vol] 3.5 g/dL Normal 1.4 - 4.0 gm/dL [facility] Protein [Mass/Vol] 7.5 g/dL Normal 6.0 - 7.8 gm/dL [facility] CHEMISTRYOrdered By: SYSTEM SYSTEM on 07-14-2023 Albumin [Mass/Vol] 3.8 g/dL Normal 3.3 - 5.0 gm/dL [facility] Albumin/Globulin [Mass ratio] 1.1 {ratio} Normal 1.1 - 2.2 [facility] Alk Phos 110 [iU]/d High 21 - 98 Int._Unit/ L [facility] ALT 13 [iU]/d Normal 6 - 46 Int._Unit/ L [facility] Anion gap [Moles/Vol] 11 mmol/L Normal 6 - 16 mEq/L [facility] AST 17 [iU]/d Normal 5 - 43 Int._Unit/ L [facility] Bili Total 0.5 mg/dL Normal 0.0 - 1.1 mg/dL [facility] Calcium [Mass/Vol] 9.6 mg/dL Normal 8.9 - 11. 1 mg/dL [facility] Chloride [Moles/Vol] 107 mmol/L Normal 101 - 111 mmol/L [facility] CO2 [Moles/Vol] 28 mmol/L Normal 21 - 31 mmol/L [facility] Creatinine [Mass/Vol] 1.0 mg/dL Normal 0.5 - 1.3 mg/dL [facility] eGFR 55 mL/min/1.73 m2 Low >=59mL/min /1.73 m2 [facility] Ferritin Lvl 60 ng/mL Normal 11 - 307 ng/mL [facility] Folate Lvl 18.3 ng/mL Normal >=6.7ng/mL [facility] Globulin (S) [Mass/Vol] 3.4 g/dL Normal 1.4 - 4.0 gm/dL [facility] Glucose [Mass/Vol] 87 mg/dL Normal 55 - 199 mg/dL [facility] Iron [Mass/Vol] 122 ug/dL Normal 35 - 153 mcg/dL [facility] Iron Sat 38 % Normal 20 - 50 % [facility] Potassium [Moles/Vol] 3.9 mmol/L Normal 3.5 - 5.3 mmol/L [facility] Protein [Mass/Vol] 7.2 g/dL Normal 6.0 - 7.8 gm/dL [facility] Sodium [Moles/Vol] 142 mmol/L Normal 135 - 145 mmol/L [facility] TIBC 318 ug/dL Normal 250 - 400 mcg/dL [facility] Transferrin [Mass/Vol] 227 mg/dL Normal 200 - 370 mg/dL [facility] Urea nitrogen [Mass/Vol] 19 mg/dL Normal 5 - 21 mg/dL [facility] Urea nitrogen/Creatinine [Mass ratio] 19 mg/mg Normal 10 - 20 [facility] HEMATOLOGYOrdered By: SYSTEM SYSTEM on 07-14-2023 Basophils/100 WBC (Bld) 0.6 % Normal 0.0 - 2.0 % [facility] HemeAutoSS Basophils/Leukocyte s Auto (Bld) [Pure # fraction] 0.0 E9/L Normal 0.0 - 0.2 E9/L [facility] HemeAutoSS Eosinophils/100 WBC (Bld) 4.8 % Normal 0.0 - 8.0 % [facility] HemeAutoSS Eosinophils/Leukocy yifan Auto (Bld) [Pure # fraction] 0.3 E9/L Normal 0.0 - 0.5 E9/L [facility] HemeAutoSS Lymphocytes/100 WBC (Bld) 29.2 % Normal 14.0 - 50.0 % [facility] HemeAutoSS Lymphocytes/Leukocy yifan Auto (Bld) [Pure # fraction] 1.8 E9/L Normal 1.0 - 4.0 E9/L [facility] HemeAutoSS Monocytes/100 WBC (Bld) 9.9 % Normal 4.0 - 14.0 % [facility] HemeAutoSS Monocytes/Leukocyte s Auto (Bld) [Pure # fraction] 0.6 E9/L Normal 0.2 - 1.0 E9/L [facility]eAutoSS Neutrophils/100 WBC (Bld) 55.5 % Normal 36.0 - 75.0 % [facility]eAutoSS Neutrophils/Leukocy yifan Auto (Bld) [Pure # fraction] 3.5 E9/L Normal 2.0 - 7.5 E9/L [facility] HemeAutoSS HEMATOLOGYOrdered By: Spencer Alba on 07-14-2023 Erythrocyte distribution width (RBC) [Ratio] 15.4 % High 10.9 - 14.2 % [facility]eAutoSS Hematocrit (Bld) [Volume fraction] 42.1 % Normal 34.0 - 46.0 % [facility]eAutoSS Hemoglobin (Bld) [Mass/Vol] 13.9 g/dL Normal 12.0 - 16.0 gm/dL [facility]eAutoSS MCH (RBC) [Entitic mass] 28.3 pg Normal 27.0 - 34.0 pg FT HemeAutoSS MCHC (RBC) [Mass/Vol] 33.1 g/dL Normal 31.4 - 36.0 gm/dL [facility] HemeAutoSS MCV (RBC) [Entitic vol] 85.4 fL Normal 80.0 - 100.0 fL [facility] HemeAutoSS Platelet mean volume (Bld) [Entitic vol] 10.5 fL Normal 6.4 - 10.8 fL [facility] HemeAutoSS Platelets (Bld) [#/Vol] 195.0 E9/L Normal 150.0 - 500.0 E9/L [facility] HemeAutoSS RBC (Bld) [#/Vol] 4.9 E12/L Normal 4.3 - 5.9 E12/L [facility] [place] HemeAutoSS WBC corrected for nucl RBC Auto (Bld) [#/Vol] 6.3 E9/L Normal 4.0 - 11.0 E9/L [facility] [place] HemeAutoSS Creatinine (Bld) [Mass/Vol]O rdered By: Avel Mcghee on 04-13-2023 Creatinine [Mass/Vol] 1.1 mg/dL 0.6-1.3 [facility] Comment on above: ER/ESD physician is notified/shown all ISTAT results.Critical values may be confirmed by laboratory testing ifdeemed necessary by ER attending doctor. No Panel InformationOrdered By: Avel Mcghee on 04-13-2023 Bedside Estimated GFR (eGFR) 48.936 [facility] CHEMISTRYOrdered By: SYSTEM SYSTEM on 03-03-2023 LDH [Catalytic activity/Vol] 123 [iU]/d Normal 93 - 218 Int._Unit/ L [facility] [place] Remisol HEMATOLOGYOrdered By: SYSTEM SYSTEM on 03-03-2023 Basophils/100 WBC (Bld) 0.6 % Normal 0.0 - 2.0 % [facility] HemeAutoSS Basophils/Leukocyte s Auto (Bld) [Pure # fraction] 0.1 E9/L Normal 0.0 - 0.2 E9/L [facility] [place] HemeAutoSS Eosinophils/100 WBC (Bld) 9.3 % High 0.0 - 8.0 % [facility] HemeAutoSS Eosinophils/Leukocy yifan Auto (Bld) [Pure # fraction] 0.8 E9/L High 0.0 - 0.5 E9/L [facility]eAutoSS Lymphocytes/100 WBC (Bld) 30.3 % Normal 14.0 - 50.0 % [facility] HemeAutoSS Lymphocytes/Leukocy yifan Auto (Bld) [Pure # fraction] 2.8 E9/L Normal 1.0 - 4.0 E9/L [facility]eAutoSS Monocytes/100 WBC (Bld) 10.1 % Normal 4.0 - 14.0 % [facility]eAutoSS Monocytes/Leukocyte s Auto (Bld) [Pure # fraction] 0.9 E9/L Normal 0.2 - 1.0 E9/L [facility]eAutoSS Neutrophils/100 WBC (Bld) 49.7 % Normal 36.0 - 75.0 % [facility]eAutoSS Neutrophils/Leukocy yifan Auto (Bld) [Pure # fraction] 4.5 E9/L Normal 2.0 - 7.5 E9/L [facility]SS HEMATOLOGYOrdered By: Deepa Miranda on 03-03-2023 Erythrocyte distribution width (RBC) [Ratio] 15.3 % High 10.9 - 14.2 % [facility]eAutoSS Hematocrit (Bld) [Volume fraction] 41.1 % Normal 34.0 - 46.0 % [facility]eAutoSS Hemoglobin (Bld) [Mass/Vol] 13.8 g/dL Normal 12.0 - 16.0 gm/dL [facility] MCH (RBC) [Entitic mass] 28.3 pg Normal 27.0 - 34.0 pg [facility]SS MCHC (RBC) [Mass/Vol] 33.5 g/dL Normal 31.4 - 36.0 gm/dL [facility] MCV (RBC) [Entitic vol] 84.3 fL Normal 80.0 - 100.0 fL [facility]eAutoSS Platelet mean volume (Bld) [Entitic vol] 10.9 fL High 6.4 - 10.8 fL [facility]eAutoSS Platelets (Bld) [#/Vol] 243.0 E9/L Normal 150.0 - 500.0 E9/L [facility] RBC (Bld) [#/Vol] 4.9 E12/L Normal 4.3 - 5.9 E12/L [facility]eAutoSS WBC corrected for nucl RBC Auto (Bld) [#/Vol] 9.2 E9/L Normal 4.0 - 11.0 E9/L [facility] [place] HemeAutoSS CHEMISTRYOrdered By: SYSTEM SYSTEM on 02-18-2023 Albumin [Mass/Vol] 3.5 g/dL Normal 3.3 - 5.0 gm/dL [facility] Remisol Albumin/Globulin [Mass ratio] 0.8 {ratio} Low 1.1 - 2.2 [facility] Remisol ALP [Catalytic activity/Vol] 122 [iU]/d High 21 - 98 Int._Unit/ L [facility] Remisol ALT No additional P-5'-P [Catalytic activity/Vol] 16 [iU]/d Normal 6 - 46 Int._Unit/ L [facility] Remisol Anion gap [Moles/Vol] 11 mmol/L Normal 6 - 16 mEq/L [facility] Remisol AST [Catalytic activity/Vol] 22 [iU]/d Normal 5 - 43 Int._Unit/ L [facility] Remisol Bilirubin [Mass/Vol] 0.5 mg/dL Normal 0.0 - 1.1 mg/dL [facility] Remisol Calcium [Mass/Vol] 9.3 mg/dL Normal 8.9 - 11. 1 mg/dL [facility] Remisol Chloride [Moles/Vol] 110 mmol/L Normal 101 - 111 mmol/L [facility] Remisol CO2 [Moles/Vol] 25 mmol/L Normal 21 - 31 mmol/L [facility] Remisol Creatinine [Mass/Vol] 0.9 mg/dL Normal 0.5 - 1.3 mg/dL [facility] Remisol GFR/1.73 sq M.predicted among non-blacks MDRD (S/P/Bld) [Vol rate/Area] 62 mL/min/1.73 m2 Normal >=59mL/min /1.73 m2 [facility] [place] Chem S Globulin (S) [Mass/Vol] 4.1 g/dL High 1.4 - 4.0 gm/dL [facility] Remisol Glucose [Mass/Vol] 102 mg/dL Normal 55 - 199 mg/dL [facility] Remisol Potassium [Moles/Vol] 4.3 mmol/L Normal 3.5 - 5.3 mmol/L [facility] Remisol Protein [Mass/Vol] 7.6 g/dL Normal 6.0 - 7.8 gm/dL [facility]isol Sodium [Moles/Vol] 142 mmol/L Normal 135 - 145 mmol/L [facility] [place] Remisol Urea nitrogen [Mass/Vol] 19 mg/dL Normal 5 - 21 mg/dL [facility] [place] Remisol Urea nitrogen/Creatinine [Mass ratio] 21 mg/mg High 10 - 20 [facility] [place] Remisol XR knee BI 3Von 10-30-2022 XR knee BI 3V [facility] [employer] Other XR knee BI 3V [facility] [employer] Other XR knee BI 3V [address] [place] [address] [employer] Other XR knee BI 3V [address] [employer] Other XR knee BI 3V [facility] Report [facility] Other XR knee BI 3V Signed [employer] Other XR knee BI 3V Patient: Chiquis Rock cia MR#: [id number] [facility] [employer] Other XR knee BI 3V 1190 [employer] Other XR knee BI 3V : 1935 Acct:[id number] [employer] Other XR knee BI 3V Age/Sex: 86 / F ADM Date: 10/30/22 [employer] Other XR knee BI 3V Loc: SOXD Room: Type : REG CLI [employer] Other XR knee BI 3V Attending Dr: Dallin Contreras II, MD [employer] Other XR knee BI 3V Copies to: Dallin Contreras MD [employer] Other XR knee BI 3V Ordering Provider: Santi Contreras MD [employer] Other XR knee BI 3V Date of Service: 10/30/22 [employer] Other XR knee BI 3V [id number]) XR/XR knee BI 3V - NOT FOR ER USE: History of total bilateral knee [employer] Other XR knee BI 3V replacement [employer] Other XR knee BI 3V ([id number]) XR/XR pelvis 1-2V: History of total bilateral knee replacement [employer] Other XR knee BI 3V AP PELVIS: Bilateral knee series 3views each [employer] Other XR knee BI 3V CLINICAL HISTORY: Bi lateral knee pain for 4 years [employer] Other XR knee BI 3V COMPARISON: None [employer] Other XR knee BI 3V Pelvis: Mild degener ative changes of both hips without acute bony process. [employer] Other XR knee BI 3V Bilateral knee serie s: Bilateral knee prostheses are in place without acute bony process or hardware [employer] Other XR knee BI 3V complication. 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 [employer] Other XR knee BI 3V Impression dictated by: Alfonso Martinez Jr. DRachealORacheal10/30/2022 2:00 PM [employer] Other XR knee BI 3V Dictation Location: [place] [id number] [employer] Other XR knee BI 3V Transcribed By: GISELLE 10/30/[address] [facility] [employer] Other XR knee BI 3V Dictated By: Alfonso Martinez Jr, DO 10/30/22 1358 [employer] Other XR knee BI 3V Signed By: [employer] Other XR knee BI 3V 10/30/22 1400 [facility] [id number] | [employer] Other [employer] ESon 09-05-2022 [employer] Radiology exam is complete. No Radiologist dictation. Please follow up with ordering provider. Final result Normal [facility] [id number] COMPLETEon [facility] Transthoracic Echocardiography Report (TTE) Patient Name SHWETA Date of Study 08/29/2022 JERRICA Osorio Date of 1935 Gender Female Age 86 year(s) Race Room Number Height: 65 inch, 165.1 cm Corporate ID [id number] Weight: 189 pounds, 85.7 kg # Patient Acct [id number] BSA: 1.93 m^2 BMI: 31.45 # kg/m^2 MR # [id number] 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 Procedure Date Date: 08/29/2022 Start: 10:06 AM Study Location: [facility] Indications:Hypertension and Tachycardia. History / Tech. Comments: Dx: tachycardia, HTN Patient Status: Outpatient Height: 65 inches Weight: 189 pounds BSA: 1.93 m^2 BMI: 31.45 kg/m^2 BP: 155/88 mmHg CONCLUSIONS Summary Global left ventricular systolic function appears preserved with an estimated ejection fraction of >60%. The left ventricular cavity size is within normal limits and the left ventricular wall thickness is mildly increased. No definite specific wall motion abnormalities were identified. No significant valvular abnormalities. Evidence of mild diastolic dysfunction is seen. No prior studies were available for comparison. Signature FINDINGS Left Atrium Left atrium is normal in size. Left Ventricle Global left ventricular systolic function appears preserved with an estimated ejection fraction of >60%. The left ventricular cavity size is within normal limits and the left ventricular wall thickness is mildly increased. No definite specific wall motion abnormalities were identified. Right Atrium Right atrium is normal in size. Right Ventricle Normal right ventricular size and function. Mitral Valve Normal mitral valve structure and function. Aortic Valve Normal aortic valve structure and function without stenosis or regurgitation. Tricuspid Valve Normal tricuspid valve structure with trivial tricuspid regurgitation. Pulmonic Valve The pulmonic valve is normal in structure. Pericardial Effusion No significant pericardial effusion is seen. Miscellaneous Evidence of mild diastolic dysfunction is seen. Normal aortic root dimension. M-mode / 2D Measurements & Calculations: LVIDd:3.48 cm(3.7 - 5.6 cm) Diastolic Volume:41.335 ml LVIDs:2.43 cm(2.2 - 4.0 cm) Systolic Volume:14.94 ml IVSd:1.23 cm(0.6 - 1.1 cm) Aortic Root:3.36 cm(2.0 - 3.7 cm) LVPWd:1.03 cm(0.6 - 1.1 cm) LA Dimension: 3.72 cm(1.9 - 4.0 cm) Fractional Shortenin.17 % LA volume/Index: 43.9 ml /23m^2 Calculated LVEF (%): 63.86 % AV Cusp Separation: 1.44 cm Mitral: Aortic Valve Area (P1/2-Time): 3.01 cm^2 Peak Velocity: 1.39 m/s Peak E-Wave: 0.53 m/s Mean Velocity: 1.03 m/s Peak A-Wave: 0.95 m/s Peak Gradient: 7.77 mmHg E/A Ratio: 0.56 Mean Gradient: 4.58 mmHg Peak Gradient: 1.12 mmHg Acceleration Time: 82.88 msec P1/2t: 73.17 msec AV VTI: 24.58 cm Tricuspid: Peak TR Velocity: 2.16 m/s Peak TR Gradient: 18.25769 mmHg Diastology / Tissue Doppler Lateral Wall E' velocity:0.10 m/s Lateral Wall E/E':5.71 [facility] Tony Damon MD - 08/29/2022 [facility] Transthoracic Echocardiography Report (TTE) Patient Name SHWETA Date of Study 08/29/2022 JERRICA Osorio Date of 1935 Gender Female Age 86 year(s) Race Room Number Height: 65 inch, 165.1 cm Corporate ID [id number] Weight: 189 pounds, 85.7 kg # Patient Acct [id number] BSA: 1.93 m^2 BMI: 31.45 # kg/m^2 MR # 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 Procedure Date Date: 08/29/2022 Start: 10:06 AM Study Location: [facility] Indications:Hypertension and Tachycardia. History / Tech. Comments: Dx: tachycardia, HTN Patient Status: Outpatient Height: 65 inches Weight: 189 pounds BSA: 1.93 m^2 BMI: 31.45 kg/m^2 BP: 155/88 mmHg CONCLUSIONS Summary Global left ventricular systolic function appears preserved with an estimated ejection fraction of >60%. The left ventricular cavity size is within normal limits and the left ventricular wall thickness is mildly increased. No definite specific wall motion abnormalities were identified. No significant valvular abnormalities. Evidence of mild diastolic dysfunction is seen. No prior studies were available for comparison. Signature - - - - FINDINGS Left Atrium Left atrium is normal in size. Left Ventricle Global left ventricular systolic function appears preserved with an estimated ejection fraction of >60%. The left ventricular cavity size is within normal limits and the left ventricular wall thickness is mildly increased. No definite specific wall motion abnormalities were identified. Right Atrium Right atrium is normal in size. Right Ventricle Normal right ventricular size and function. Mitral Valve Normal mitral valve structure and function. Aortic Valve Normal aortic valve structure and function without stenosis or regurgitation. Tricuspid Valve Normal tricuspid valve structure with trivial tricuspid regurgitation. Pulmonic Valve The pulmonic valve is normal in structure. Pericardial Effusion No significant pericardial effusion is seen. Miscellaneous Evidence of mild diastolic dysfunction is seen. Normal aortic root dimension. M-mode / 2D Measurements & Calculations: LVIDd:3.48 cm(3.7 - 5.6 cm) Diastolic Volume:41.335 ml LVIDs:2.43 cm(2.2 - 4.0 cm) Systolic Volume:14.94 ml IVSd:1.23 cm(0.6 - 1.1 cm) Aortic Root:3.36 cm(2.0 - 3.7 cm) LVPWd:1.03 cm(0.6 - 1.1 cm) LA Dimension: 3.72 cm(1.9 - 4.0 cm) Fractional Shortenin.17 % LA volume/Index: 43.9 ml /23m^2 Calculated LVEF (%): 63.86 % AV Cusp Separation: 1.44 cm Mitral: Aortic Valve Area (P1/2-Time): 3.01 cm^2 Peak Velocity: 1.39 m/s Peak E-Wave: 0.53 m/s Mean Velocity: 1.03 m/s Peak A-Wave: 0.95 m/s Peak Gradient: 7.77 mmHg E/A Ratio: 0.56 Mean Gradient: 4.58 mmHg Peak Gradient: 1.12 mmHg Acceleration Time: 82.88 msec P1/2t: 73.17 msec AV VTI: 24.58 cm Tricuspid: Peak TR Velocity: 2.16 m/s Peak TR Gradient: 18.64755 mmHg Diastology / Tissue Doppler Lateral Wall E' velocity:0.10 m/s Lateral Wall E/E':5.71 [facility] [employer] Work Phone: [id number] COMPLETEOrder ed By: Tony Damon on 08-29-2022 CARMEN D[employer] Work Phone: Cult,Urineon 07-25-2022 Cult,Urine Specimen Description .BLADDER URINE FROM CYSTOSCOPY Culture ESCHERICHIA COLI 50 to 100,000 CFU/ML Report Status FINAL 07/24/2022 SUSCEPTIBILITY Organism ESCHERICHIA COLI Method BIRD Ampicillin 4 SUSCEPTIBLE Aztreonam <=1 SUSCEPTIBLE Cefazolin <=4 SUSCEPTIBLE Cefazolin sensitivity results can be used to predict the effectiveness of oral cephalosporins (eg. Cephalexin) in uncomplicated Urinary Tract Infections due to E. coli, K. pneumoniae, and P. mirabilis Ceftriaxone <=1 SUSCEPTIBLE Ciprofloxacin <=0.25 SUSCEPTIBLE ESBL NEGATIVE Gentamicin <=1 SUSCEPTIBLE Nitrofurantoin <=16 SUSCEPTIBLE Tobramycin <=1 SUSCEPTIBLE Trimethoprim/Sulfa <=20 SUSCEPTIBLE Piperacillin/Tazobactam <=4 SUSCEPTIBLE Susceptible [facility] Comment on above: Performed By: #### U RC #### [facility] [address] [place] [address] Stock Handler: Rock eHrnandez MD Basic Metab w/rfx MGon 07-24 Anion gap [Moles/Vol] 12 mmol/L Normal 9-17 [facility] Comment on above: Performed By: #### B MPX, CDP, IPF ####[employer] [address] [place] [address] Lab Director: Rock Hernandez MD Calcium [Mass/Vol] 8.4 mg/dL Low 8.6-10.4 [facility] Comment on above: Performed By: #### B MPX, CDP, IPF ####[employer] [address] [place] [address] Lab Director: Rock Hernandez MD Chloride [Moles/Vol] 107 mmol/L Normal 98-107 [facility] Comment on above: Performed By: #### B MPX, CDP, IPF ####[employer] [address] [place] [address] Lab Director: Rock Hernandez MD CO2 [Moles/Vol] 21 mmol/L Normal 20-31 [facility] Comment on above: Performed By: #### B PHYLICIA ANDERSEN, IPF ####[facility] [address] [place] [address] Lab Director: Rock Hernandez MD Creatinine [Mass/Vol] 0.76 mg/dL Normal 0.50-0.90 [facility] Comment on above: Performed By: #### B MPX CDP, IPF ####[facility] [address] [place] [address] Lab Director: Rock Hernandez MD GFR/1.73 sq M.predicted among non-blacks MDRD (S/P/Bld) [Vol rate/Area] mL/min/{1.73_m2} Normal >60 [facility] Comment on above: Result Comment: Effective Apr 28, 2022 These results are not intended for use in patients <18 years of age. eGFR results are calculated without a race factor using the 2020 CKD-EPI equation. Careful clinical correlation is recommended, particularly when comparing to results calculated using previous equations. The CKD-EPI equation is less accurate in patients with extremes of muscle mass, extra-renal metabolism of creatine, excessive creatine ingestion, or following therapy that affects renal tubular secretion. Performed By: #### B PHYLICIA ANDERSEN, IPF ####[facility] [address] [place] [address] Lab Director: Rock Hernandez MD Glucose [Mass/Vol] 97 mg/dL Normal 70-99 [facility] Comment on above: Performed By: #### B ALFREDOX CDP, IPF ####[facility] [address] [place] [address] Lab Director: Rock Hernandez MD Potassium [Moles/Vol] 3.6 mmol/L Low 3.7-5.3 [facility] Comment on above: Performed By: #### B ALFREDOX CDP, IPF ####[facility] [address]yam[address] [place], [place] [id number] lab Director: Rock Hernandez MD Sodium [Moles/Vol] 140 mmol/L Normal 135-144 [facility] Comment on above: Performed By: #### B MPX, CDP, IPF ####[facility] [address] [place], [place] [id number] lab Director: Rock Hernandez MD Urea nitrogen [Mass/Vol] 16 mg/dL Normal 8-23 [facility] Comment on above: Performed By: #### B MPX, CDP, IPF ####[facility] [address] [place] [address] lab Director: Rock Hernandez MD Basic Metabolic Panel w/ Ref jud to MGon 07-24-2022 Anion gap [Moles/Vol] 12 mmol/L 9 - 17 mmol/L [facility] [employer] Calcium [Mass/Vol] 8.4 mg/dL Low 8.6 - 10. 4 mg/dL [facility] [employer] Chloride [Moles/Vol] 107 mmol/L 98 - 107 mmol/L [facility] [employer] CO2 [Moles/Vol] 21 mmol/L 20 - 31 mmol/L [facility]io[facility] Creatinine [Mass/Vol] 0.76 mg/dL 0.50 - 0.90 mg/dL [facility] GFR/1.73 sq M.predicted MDRD (S/P/Bld) [Vol rate/Area] - PINF [facility] Comment on above: Effective Apr 28, 2022 These results are not intended for use in patients <18 years of age. eGFR results are calculated without a race factor using the 2020 CKD-EPI equation. Careful clinical correlation is recommended, particularly when comparing to results calculated using previous equations. The CKD-EPI equation is less accurate in patients with extremes of muscle mass, extra-renal metabolism of creatine, excessive creatine ingestion, or following therapy that affects renal tubular secretion. Glucose [Mass/Vol] 97 mg/dL 70 - 99 mg/dL [facility] Interpretation and review of laboratory results Abnormal [facility] [employer] Potassium [Moles/Vol] 3.6 mmol/L Low 3.7 - 5.3 mmol/L [facility] Sodium [Moles/Vol] 140 mmol/L 135 - 144 mmol/L [facility] Urea nitrogen (BldV) [Mass/Vol] 16 mg/dL 8 - 23 mg/dL [facility] CBC with Auto Differentialon 07-24-2022 Absolute Eos # 0.17 [facility] Absolute Immature Granulocyte 0.[address] [facility] Absolute Lymph # 1.30 [facility] Absolute [place] # 1.11 [facility] Basophils (Bld) [#/Vol] 0.04 10*3/uL [facility] Basophils/100 WBC (Bld) 0 % 0 - 2 % [facility] Eosinophils/100 WBC (Bld) 1 % 1 - 4 % [facility] Hematocrit (Bld) [Volume fraction] 37.6 % 36.3 - 47.1 % [facility] Hemoglobin (Bld) [Mass/Vol] 12.0 g/dL 11.9 - 15.1 g/dL [facility] Immature granulocytes/100 WBC (Bld) 1 % High [address] [facility] Interpretation and review of laboratory results Abnormal [facility] Lymphocytes/100 WBC (Bld) 6 % Low 24 - 43 % [facility] MCH (RBC) [Entitic mass] 28.5 pg 25.2 - 33.[address] [facility] MCHC (RBC) [Mass/Vol] 31.9 g/dL 28.4 - 34.8 g/dL [facility] MCV (RBC) [Entitic vol] 89.3 fL 82.6 - 102.[address] [facility] Monocytes/100 WBC (Bld) 5 % 3 - 12 % [facility] NRBC Automated 0.0 0.0 per [address] [facility] Platelet distribution width (Bld) [Ratio] 15.3 % High 11.8 - 14.4 % [facility] Platelets (Bld) [#/Vol] See Reflexed IPF Result [facility] RBC (Bld) [#/Vol] 4.21 10*6/uL 3.95 - 5.11 m/uL [facility] RBC (Bld) [#/Vol] ANISOCYTOSIS PRESENT [facility] Segmented neutrophils/100 WBC (Bld) 87 % High 36 - 65 % [facility] Segs Absolute 18.[address] [facility] WBC (Bld) [#/Vol] 21.2 10*3/uL High [facility] CBC with Diffon 07-24-2022 Abs. Basophil 0.04 k/uL Normal 0.00-0.20 [facility] Comment on above: Performed By: #### B MPX, CDP, IPF ####[facility] [address] [place], [place] [address])[phone] Director: Rock Hernandez MD Abs.Imm.Granulocyte 0.17 k/uL Normal 0.00-0.30 [facility] Comment on above: Performed By: #### B MPX, CDP, IPF ####[facility] [address] [place], [place] [address])[phone] Director: Rock Hernandez MD Abs.Neutrophil (Seg) 18.43 k/uL High 1.50-8.10 [facility] Comment on above: Performed By: #### B MPX, CDP, IPF ####[facility] [address] [place], [place] [address])[phone] Director: Rock Hernandez MD Basophils/100 WBC (Bld) 0 % Normal 0-2 [facility] Comment on above: Performed By: #### B MPX, CDP, IPF ####[facility] [address] [place], [place] [address])[phone] Director: Rock Hernandez MD Eosinophils (Bld) [#/Vol] 0.17 10*3/uL Normal 0.00-0.44 [facility] Comment on above: Performed By: #### B MPX, CDP, IPF ####[facility] [address] [place], [place] [address])[phone] Director: Rock Hernandez MD Eosinophils/100 WBC (Bld) 1 % Normal 1-4 [facility] Comment on above: Performed By: #### B MPX, CDP, IPF ####[facility] [address] [place], [place] [phone])[phone] Director: Rock Hernandez MD Erythrocyte distribution width (RBC) [Ratio] 15.3 % High 11.8-14.4 [facility] Comment on above: Performed By: #### B MPX, CDP, IPF ####[facility] [address] [place], [place] [id number])[phone] Director: Rock Hernandez MD Hematocrit (Bld) [Volume fraction] 37.6 % Normal 36.3-47.1 [facility] Comment on above: Performed By: #### B MPX, CDP, IPF ####[facility] [address]cp[address] [place], [place] [address])[phone] Director: Rock Hernandez MD Hemoglobin (Bld) [Mass/Vol] 12.0 g/dL Normal 11.9-15.1 [facility] Comment on above: Performed By: #### B MPX, CDP, IPF ####[facility] [address]izj[address] [place], [place] [id number])[phone] Director: Rock Hernandez MD Immature granulocytes/100 WBC (Bld) 1 % High 0 [facility] Comment on above: Performed By: #### B MPX, CDP, IPF ####[facility] [address] [place], [place] [phone])[phone] Director: Rock Hernandez MD Lymphocytes (Bld) [#/Vol] 1.30 10*3/uL Normal 1.10-3.70 [facility] Comment on above: Performed By: #### B MPX, CDP, IPF ####[facility] [address] [place], [place] [id number])[phone] Director: Rock Hernandez MD Lymphocytes/100 WBC (Bld) 6 % Low 24-43 [facility] Comment on above: Performed By: #### B MPX, CDP, IPF ####[facility] [address] [place], [place] [phone])[phone] Director: Rock Hernandez MD MCH (RBC) [Entitic mass] 28.5 pg Normal 25.2-33.5 [facility] Comment on above: Performed By: #### B MPX, CDP, IPF ####[facility] [address] [place], [place] [phone])[phone] Director: Rock Hernandez MD MCHC (RBC) [Mass/Vol] 31.9 g/dL Normal 28.4-34.8 [facility] Comment on above: Performed By: #### B MPX, CDP, IPF ####[facility] [address] [place] [address] [phone])[phone] Director: Rock Hernandez MD MCV (RBC) [Entitic vol] 89.3 fL Normal 82.6-102.9 [facility] Comment on above: Performed By: #### B MPX, CDP, IPF ####[facility] [address] [place] [address] [phone] Director: Rock Hernandez MD Monocytes (Bld) [#/Vol] 1.11 10*3/uL Normal 0.10-1.20 [facility] Comment on above: Performed By: #### B MPX, CDP, IPF ####[facility] [address] [place], [place] [phone] Director: Rock Hernandez MD Monocytes/100 WBC (Bld) 5 % Normal 3-12 [facility] Comment on above: Performed By: #### B MPX, CDP, IPF ####[facility] [address] [place], [place] [phone] Director: Rock Hernandez MD Neutrophil (Seg) 87 % High 36-65 [facility] Comment on above: Performed By: #### B MPX, CDP, IPF ####[facility] [address] [place] [address] Lab Director: Rock Hernandez MD NRBC Automated 0.0 per 100 WBC Normal 0.0 [facility] Comment on above: Performed By: #### B MPX, CDP, IPF ####[facility] [address] [place] [address] Lab Director: Rock Hernandez MD Platelet Count See Reflexed IPF Result Normal 138-453 [facility] Comment on above: Performed By: #### B MPX, CDP, IPF ####[facility] [address] [place] [address] Lab Director: Rock Hernandez MD RBC (Bld) [#/Vol] 4.21 10*6/uL Normal 3.95-5.11 [facility] Comment on above: Performed By: #### B MPX, CDP, IPF ####[facility] [address] [place] [address] Lab Director: Rock Hernandez MD RBC morphology finding Nom (Bld) ANISOCYTOSIS PRESENT Normal [facility] Comment on above: Performed By: #### B MPX, CDP, IPF ####[facility] [address] [place] [address] Lab Director: Rock Hernandez MD WBC (Bld) [#/Vol] 21.2 10*3/uL High 3.5-11.3 [facility] Comment on above: Performed By: #### B MPX, CDP, IPF ####[facility] [address]ws[address] [place] [address] Lab Director: Rock Hernandez MD CULTURE URINEon 07-24-2022 CULTURE URINE Isolate 1 Escherichia coli >100,000 cfu/mL of ORGANISM 1 Escherichia coli ANTIBIOTIC M.I.C RX STATUS Ampicillin 4 S F Ampicillin/Sulbactam <=2 S F Piperacillin/Tazobactam <=4 S F Cefazolin <=4 S F Ceftazidime <=1 S F Ceftriaxone <=1 S F Ertapenem <=0.5 S F Imipenem <=0.25 S F Amikacin <=2 S F Gentamicin <=1 S F Tobramycin <=1 S F Ciprofloxacin <=0.25 S F Levofloxacin <=0.12 S F Nitrofurantoin <=16 S F Trimethoprim/Sulfamethoxazol e <=20 S F Normal [facility] Comment on above: Performed By: #### U RCX #### [facility] [address] [place] [address] Dr. Fatoumata Garcia Immature Platelet Fractionon 07-24-2022 Interpretation and review of laboratory results Abnormal [facility] Platelet, Fluorescence 130 Low [facility] [employer] Comment on above: ORDERED BY LAB Platelet, Immature Fraction 9.3 % 1.1 - 10.3 % [facility] [employer] Comment on above: ORDERED BY LAB [facility] [employer] PLT, Immature Fract.on 07-24 Platelet, Fluoresc. 130 k/uL Low 138-453 [facility] Comment on above: Result Comment: ORDE RED BY LAB Performed By: #### B MPX, CDP, IPF ####[facility] [address] [place], [place] [id number] Lab Director: Rock Hernandez MD PLT, Immature Fract. 9.3 % Normal 1.1-10.3 [facility] Comment on above: Result Comment: ORDE RED BY LAB Performed By: #### B MPX, CDP, IPF ####[employer] [address] [place], [place] [id number] lab Director: Rock Hernandez MD APTTon 07-23-2022 aPTT Coag (Bld) [Time] 25.8 s Normal 20.5-30.5 [facility] Comment on above: Result Comment: IV Heparin Therapy Range: 48.6-77.8 Performed By: #### P TT, PT, CP, MG, BNP #### [facility] [address] [place], [place] [id number] Stock Handler: Rock Hernandez MD aPTT Coag (Bld) [Time] 25.[address] [facility] Comment on above: IV Heparin Therapy Range: 48.6-77.8 Brain Natri. Peptideon 07-23 Natriuretic peptide B (Bld) [Mass/Vol] 4418 pg/mL High <300 [facility] Comment on above: Result Comment: An age-independent cutoff point of 300 pg/ml has a 98% negative predictive value excluding acute heart failure. Performed By: #### P TT, PT, CP, MG, BNP #### [address] [place], [place] [id number] Stock Handler: Rock Hernandez MD Brain Natriuretic Peptideon 07-23-2022 Interpretation and review of laboratory results Abnormal [facility] Natriuretic peptide B (Bld) [Mass/Vol] 4418 pg/mL High NINF - 300 pg/mL [facility] Comment on above: An age-independent cutoff point of 300 pg/ml has a 98% negative predictive value excluding acute heart failure. [facility] CBC AUTO DIFFon 07-23-2022 BASO # 0.1 103/ul Normal 0.0-0.[address] [facility] Comment on above: Performed By: #### C BC #### [facility] [address] [address] [address] Fatoumata Garcia Basophils/100 WBC (Bld) 0.3 % Normal 0.2-2.[address] [facility] Comment on above: Performed By: #### C BC #### [facility] [address] [address] [address] Fatoumata Garcia EO # 0.0 103/ul Normal 0.0-0.[address] [facility] Comment on above: Performed By: #### C BC #### [facility] [address] [address] [address] Fatoumata Garcia Eosinophils/100 WBC (Bld) 0.0 % Critically low 0.9-7.0 [facility] Comment on above: Performed By: #### C BC #### [facility] [address] [place] [address] Dr. Fatoumata Garcia Erythrocyte distribution width (RBC) [Ratio] 15.0 % Normal 11.0-15.0 [facility] Comment on above: Performed By: #### C BC #### [facility] [address] [place] [address] Dr. Fatoumata Garcia Hematocrit (Bld) [Volume fraction] 34.6 % Critically low 36.0-48.0 [facility] Comment on above: Performed By: #### C BC #### [facility] [address] [place] [address] Dr. Fatoumata Garcia Hemoglobin (Bld) [Mass/Vol] 11.4 g/dL Critically low 12.0-16.0 [facility] Comment on above: Performed By: #### C BC #### [facility] [address] [place] [address] Dr. Fatoumata Garcia IG # 0.59 10e3/ul Critically high 0.00-0.03 [facility] Comment on above: Performed By: #### C BC #### [facility] [address] [place] [address] Dr. Fatoumata Garcia IG % 1.6 % Critically high 0.0-0.5 [facility] [place] [facility] Comment on above: Performed By: #### C BC #### [facility] [address] [place] [address] Dr. Fatoumata Garcia LYMPH # 1.7 103/ul Normal 1.2-3.8 [facility] Comment on above: Performed By: #### C BC #### [facility] [address] [place] [address] Dr. Fatoumata Garcia Lymphocytes/100 WBC (Bld) 4.6 % Critically low 20.5-60.0 [facility] Comment on above: Performed By: #### C BC #### [facility] [address] [place] [address] Dr. Fatoumata Garcia MANUAL DIFF REQ NO Normal [facility] [place] [facility] Comment on above: Performed By: #### C BC #### [facility] [address] [address] [address] Fatoumata Garcia MCH (RBC) [Entitic mass] 28.9 pg Normal 26.7-34.0 [facility] Comment on above: Performed By: #### C BC #### [facility] [address] [address] [address] Fatoumata Garcia MCHC (RBC) [Mass/Vol] 32.9 g/dL Normal 29.9-35.2 [facility] Comment on above: Performed By: #### C BC #### [facility] [address] [address] [address] Fatoumata Garcia MCV (RBC) [Entitic vol] 87.6 fL Normal 81.0-99.[address] [facility] Comment on above: Performed By: #### C BC #### [facility] [address] [place] [address] Dr. Fatoumata Garcia MONO # 1.9 103/ul Critically high 0.3-0.8 [facility] Comment on above: Performed By: #### C BC #### [facility] [address] [place] [address] Dr. Fatoumata Garcia Monocytes/100 WBC (Bld) 5.1 % Normal 1.7-12.[address] [facility] Comment on above: Performed By: #### C BC #### [facility] [address] [address] [address] Fatoumata Garcia NEUT # 33.6 103/ul Critically high 1.4-6.5 [facility] Comment on above: Performed By: #### C BC #### [facility] [address] [address] [address] Fatoumata Garcia Neutrophils/100 WBC (Bld) 88.4 % Critically high 43.0-75.[address] [facility] Comment on above: Performed By: #### C BC #### [facility] [address] [place] [address] Dr. Fatoumata Garcia Platelet mean volume (Bld) [Entitic vol] 12.2 fL Normal 9.5-13.[address] [facility] Comment on above: Performed By: #### C BC #### [facility] [address] [place] [address] Dr. Fatoumata Garcia PLT 137 103/ul Critically low 150-450 [facility] Comment on above: Performed By: #### C BC #### [facility] [address] [place] [address] Dr. Fatoumata Garcia RBC 3.95 106/ul Critically low 4.20-5.40 [facility] Comment on above: Performed By: #### C BC #### [facility] [address] [place] [address] Dr. Fatoumata Garcia WBC 38.0 103/ul Critically high 4.0-11.0 [facility] Comment on above: Performed By: #### C BC #### [facility] [address] [place] [address] Dr. Fatoumata Garcia CBC W MANUAL DIFFon 07-23-20 22 ATYPICAL LYMPH # Normal [facility] Comment on above: Performed By: #### U RCX #### [facility] [address] [place] [address] Dr. Fatoumata Garcia ATYPICAL LYMPH % Normal [facility] Comment on above: Performed By: #### U RCX #### [facility] [address] [place] [address] Dr. Fatoumata Garcia BAND # 1.2 103/ul Critically high 0.0-0.3 [facility] Comment on above: Performed By: #### U RCX #### [facility] [address] [place] [address] Dr. Fatoumata Garcia BAND % 3 % Normal 0-[address] [facility] Comment on above: Performed By: #### U RCX #### [facility] [address] [place] [address] Dr. Fatoumata Garcia BASOM # 0.00 103/ul Normal 0.00-0.[address] [facility] Comment on above: Performed By: #### U RCX #### [facility] [address] [place] [address] Dr. Fatoumata Garcia BASOM % 0.0 % Critically low 0.2-2.0 [facility] Comment on above: Performed By: #### U RCX #### [facility] [address] [address] [address] Fatoumata Garcia BLAST # Normal [facility] Comment on above: Performed By: #### U RCX #### [facility] [address] [address] [address] Fatoumata Garcia BLAST % Normal [facility] Comment on above: Performed By: #### U RCX #### [facility] [address] [place] [address] Dr. Fatoumata Garcia CORRECTED WBC Normal 4.0-11.0 [facility] Comment on above: Performed By: #### U RCX #### [facility] [address] [place] [address] Dr. Fatoumata Garcia EOS # 0.39 103/ul Normal 0.00-0.70 [facility] Comment on above: Performed By: #### U RCX #### [facility] [address] [place] [address] Dr. Fatoumata Garcia EOS% 1.0 % Normal 0.9-7.0 [facility] Comment on above: Performed By: #### U RCX #### [facility] [address] [place] [address] Dr. Fatoumata Garcia HCT 34.8 % Critically low 36.0-48.0 [facility] Comment on above: Performed By: #### U RCX #### [facility] [address] [place] [address] Dr. Fatoumata Garcia HGB 11.4 g/dl Critically low 12.0-16.0 [facility] Comment on above: Performed By: #### U RCX #### [facility] [address] [place] [address] Dr. Fatoumata Garcia LYMPHM # 0.00 103/ul Critically low 1.20-3.80 [facility] Comment on above: Performed By: #### U RCX #### [facility] [address] [place] [address] Dr. Fatoumata Garcia LYMPHM% 0.0 % Critically low 20.5-60.0 [facility] Comment on above: Performed By: #### U RCX #### [facility] [address] [place] [address] Dr. Fatoumata Garcia MCH 28.7 pg Normal 26.7-34.[address] [facility] Comment on above: Performed By: #### U RCX #### [facility] [address] [place] [address] Dr. Fatoumata Garcia MCHC 32.8 g/dl Normal 29.9-35.2 [facility] Comment on above: Performed By: #### U RCX #### [facility] [address] [place] [address] Dr. Fatoumata Garcia MCV 87.7 fL Normal 81.0-99.0 [facility] Comment on above: Performed By: #### U RCX #### [facility] [address] [place] [address] Dr. Fatoumata Garcia METAMYELOCYTE # Normal [facility] Comment on above: Performed By: #### U RCX #### [facility] [address] [place] [address] Dr. Fatoumata Garcia METAMYELOCYTE % Normal [facility] Comment on above: Performed By: #### U RCX #### [facility] [address] [place] [address] Dr. Fatoumata Garcia MONOM# 1.18 103/ul Critically high 0.30-0.80 [facility] Comment on above: Performed By: #### U RCX #### [facility] [address] [place] [address] Dr. Fatoumata Garcia MONOM% 3.0 % Normal 1.7-12.[address] [facility] Comment on above: Performed By: #### U RCX #### [facility] [address] [place] [address] Dr. Fatoumata Garcia MPV 12.0 fL Normal 9.5-13.[address] [facility] Comment on above: Performed By: #### U RCX #### [facility] [address] [address] [address] Fatoumata Garcia MYELOCYTE # Normal [facility] Comment on above: Performed By: #### U RCX #### [facility] [address] [address] [address] Fatoumata Garcia MYELOCYTE % Normal [facility] Comment on above: Performed By: #### U RCX #### [facility] [address] [address] [address] Fatoumata Garcia NRBC Normal [facility] Comment on above: Performed By: #### U RCX #### [facility] [address] [address] [address] Fatoumata Garcia PLT 151 103/ul Normal 150-450 [facility] Comment on above: Performed By: #### U RCX #### [facility] [address] [address] [address] Fatoumata Garcia RBC 3.97 106/ul Critically low 4.20-5.40 [facility] Comment on above: Performed By: #### U RCX #### [facility] [address] [address] [address] Fatoumata Garcia RDW 14.9 % Normal 11.0-15.0 [facility] Comment on above: Performed By: #### U RCX #### [facility] [address] [address] [address] Fatoumata Garcia SEG # 36.64 103/ul Critically high 1.40-6.50 [facility] Comment on above: Performed By: #### U RCX #### [facility] [address] [address] [address] Fatoumata Garcia SEG % 93.0 % Critically high 43.0-75.0 [facility] Comment on above: Performed By: #### U RCX #### [facility] [address] [address] [address] Fatoumata Garcia WBC 39.4 103/ul Critically high 4.0-11.0 [facility] Comment on above: Performed By: #### U RCX #### [facility] [address] [place], [place] [address] Dr. Fatoumata Garcia CBC with Auto Differentialon 07-23-2022 Absolute Eos # 0.33 [facility] Absolute Immature Granulocyte 0.00 [facility] Absolute Lymph # 1.67 [facility] Absolute [place] # 2.00 High [facility] Basophils (Bld) [#/Vol] 0.00 10*3/uL [facility] Basophils/100 WBC (Bld) 0 % 0 - 2 % [facility] Eosinophils/100 WBC (Bld) 1 % 1 - 4 % [facility] Hematocrit (Bld) [Volume fraction] 36.4 % 36.3 - 47.1 % [facility] Hemoglobin (Bld) [Mass/Vol] 11.6 g/dL Low 11.9 - 15.1 g/dL [facility] Immature granulocytes/100 WBC (Bld) 0 % [address] [facility] Interpretation and review of laboratory results Abnormal [facility] Lymphocytes/100 WBC (Bld) 5 % Low 24 - 44 % [facility] MCH (RBC) [Entitic mass] 28.9 pg 25.2 - 33.[address] [facility] MCHC (RBC) [Mass/Vol] 31.9 g/dL 28.4 - 34.8 g/dL [facility] MCV (RBC) [Entitic vol] 90.5 fL 82.6 - 102.9 fL [facility] Monocytes/100 WBC (Bld) 6 % 1 - 7 % [facility] Morphology [place] (Bld) [Interp] ANISOCYTOSIS PRESENT [facility] NRBC Automated 0.0 0.0 per 100 WBC [facility] Platelet distribution width (Bld) [Ratio] 15.4 % High 11.8 - 14.4 % [facility] Platelets (Bld) [#/Vol] See Reflexed IPF Result [facility] RBC (Bld) [#/Vol] 4.02 10*6/uL 3.95 - 5.11 m/uL [facility] Segmented neutrophils/100 WBC (Bld) 88 % High 36 - 66 % [facility] Segs Absolute 29.[address] [facility] WBC (Bld) [#/Vol] 33.4 10*3/uL Critically high [facility] CBC with Diffon 07-23-2022 Abs. Basophil 0.00 k/uL Normal 0.0-0.2 [facility] Comment on above: Performed By: #### C DP, IPF #### [facility] [address] [place] [phone] Stock Handler: Rock Hernandez MD Abs.Imm.Granulocyte 0.00 k/uL Normal 0.00-0.30 [facility] Comment on above: Performed By: #### C DP, IPF #### [facility] [employer] [address] [place] [address] Stock Handler: Rock Hernandez MD Abs.Neutrophil (Seg) 29.40 k/uL High 1.8-7.7 [facility] Comment on above: Performed By: #### C DP, IPF #### [facility] [employer] [address] [place] [phone] Stock Handler: Rock Hernandez MD Basophils/100 WBC (Bld) 0 % Normal 0-2 [facility] Comment on above: Performed By: #### C DP, IPF #### [facility] [employer] [address] [place] [phone] Stock Handler: Rock Hernandez MD Eosinophils (Bld) [#/Vol] 0.33 10*3/uL Normal 0.0-0.4 [facility] Comment on above: Performed By: #### C DP, IPF #### [facility] [employer] [address] [place] [phone] Stock Handler: Rokc Hernandez MD Eosinophils/100 WBC (Bld) 1 % Normal 1-4 [facility] Comment on above: Performed By: #### C DP, IPF #### [address] [phone] Stock Handler: Rock Hernandez MD Immature granulocytes/100 WBC (Bld) 0 % Normal 0 [facility] Comment on above: Performed By: #### C DP, IPF #### [address] [phone] Stock Handler: Rock Hernandez MD Lymphocytes (Bld) [#/Vol] 1.67 10*3/uL Normal 1.0-4.8 [facility] Comment on above: Performed By: #### C DP, IPF #### [address] [phone] Stock Handler: Rock Hernandez MD Lymphocytes/100 WBC (Bld) 5 % Low 24-44 [facility] Comment on above: Performed By: #### C DP, IPF #### [address] [phone] Stock Handler: Rock Hernandez MD Monocytes (Bld) [#/Vol] 2.00 10*3/uL High 0.1-0.8 [facility] Comment on above: Performed By: #### C DP, IPF #### [address] [address] Stock Handler: Rock Hernandez MD Monocytes/100 WBC (Bld) 6 % Normal 1-7 [facility] Comment on above: Performed By: #### C DP, IPF #### [address] [phone] Stock Handler: Rock Hernandez MD Morphology [place] (Bld) [Interp] ANISOCYTOSIS PRESENT Normal [facility] Comment on above: Performed By: #### C DP, IPF #### [address] [phone] Stock Handler: Rock Hernandez MD Neutrophil (Seg) 88 % High 36-66 [facility] [place] [facility] Comment on above: Performed By: #### C DP, IPF #### [address] [phone] Stock Handler: Rock Hernandez MD Erythrocyte distribution width (RBC) [Ratio] 15.4 % High 11.8-14.4 [facility] Comment on above: Performed By: #### C DP, IPF #### [address] [address] Stock Handler: Rock Hernandez MD Hematocrit (Bld) [Volume fraction] 36.4 % Normal 36.3-47.1 [facility] Comment on above: Performed By: #### C DP, IPF #### [address] [phone] Stock Handler: Rock Hernandez MD Hemoglobin (Bld) [Mass/Vol] 11.6 g/dL Low 11.9-15.1 [facility] Comment on above: Performed By: #### C DP, IPF #### [address] [phone] Stock Handler: Rock Hernandez MD MCH (RBC) [Entitic mass] 28.9 pg Normal 25.2-33.5 [facility] Comment on above: Performed By: #### C DP, IPF #### [address] [phone] Stock Handler: Rock Hernandez MD MCHC (RBC) [Mass/Vol] 31.9 g/dL Normal 28.4-34.8 [facility] Comment on above: Performed By: #### C DP, IPF #### [address] [phone] Stock Handler: Rock Hernandez MD MCV (RBC) [Entitic vol] 90.5 fL Normal 82.6-102.9 [facility] Comment on above: Performed By: #### C DP, IPF #### [address] [phone] Stock Handler: Rock Hernandez MD NRBC Automated 0.0 per 100 WBC Normal 0.0 [facility] Comment on above: Performed By: #### C DP, IPF #### [address] [phone] Stock Handler: Rock Hernandez MD Platelet Count See Reflexed IPF Result Normal 138-453 [facility] Comment on above: Performed By: #### C DP, IPF #### [address] [phone] Stock Handler: Rock Hernandez MD RBC (Bld) [#/Vol] 4.02 10*6/uL Normal 3.95-5.11 [facility] Comment on above: Performed By: #### C DP, IPF #### [facility] [employer] [address] [place] [address] Stock Handler: Rock Hernandez MD WBC (Bld) [#/Vol] 33.4 10*3/uL Critically high 3.5-11.3 [facility] Comment on above: Performed By: #### C DP, IPF #### [address] [phone] Stock Handler: Rcok Hernandez MD Comp Metabolic Profon 2021 AST [Catalytic activity/Vol] 29 U/L Normal <32 [facility] Comment on above: Performed By: #### P TT, PT, CP, MG, BNP #### [address] [address] Stock Handler: Rock Hernandez MD Albumin [Mass/Vol] 3.0 g/dL Low 3.5-5.2 [facility] Comment on above: Performed By: #### P TT, PT, CP, MG, BNP #### [address] [address] Stock Handler: Rock Hernandez MD Albumin/Glob Ratio 1.0 Normal 1.0-2.5 [facility] Comment on above: Performed By: #### P TT, PT, CP, MG, BNP #### [address] [address] Stock Handler: Rock Hernandez MD Alkaline Phos 120 U/L High 35-104 [facility] Comment on above: Performed By: #### P TT, PT, CP, MG, BNP #### [address] [phone] Stock Handler: Rock Hernandez MD ALT [Catalytic activity/Vol] 17 U/L Normal 5-33 [facility] Comment on above: Performed By: #### P TT, PT, CP, MG, BNP #### [address] [phone] Stock Handler: Rock Hernandez MD Anion gap [Moles/Vol] 9 mmol/L Normal 9-17 [facility] Comment on above: Performed By: #### P TT, PT, CP, MG, BNP #### [address] [address] Stock Handler: Rock Hernandez MD Bilirubin [Mass/Vol] 0.4 mg/dL Normal 0.3-1.2 [facility] Comment on above: Performed By: #### P TT, PT, CP, MG, BNP #### [address] [address] Stock Handler: Rock Hernandez MD Calcium [Mass/Vol] 7.9 mg/dL Low 8.6-10.4 [facility] Comment on above: Performed By: #### P TT, PT, CP, MG, BNP #### [address] [phone] Stock Handler: Rock Hernandez MD Chloride [Moles/Vol] 109 mmol/L High 98-107 [facility] Comment on above: Performed By: #### P TT, PT, CP, MG, BNP #### [address] [phone] Stock Handler: Rock Hernandez MD CO2 [Moles/Vol] 21 mmol/L Normal 20-31 [facility] Comment on above: Performed By: #### P TT, PT, CP, MG, BNP #### [address] [phone] Stock Handler: Rock Hernandez MD Creatinine [Mass/Vol] 0.87 mg/dL Normal 0.50-0.90 [facility] Comment on above: Performed By: #### P TT, PT, CP, MG, BNP #### [address] [address] Stock Handler: Rock Hernandez MD GFR/1.73 sq M.predicted among non-blacks MDRD (S/P/Bld) [Vol rate/Area] mL/min/{1.73_m2} Normal >60 [facility] Comment on above: Result Comment: Effective Apr 28, 2022 These results are not intended for use in patients <18 years of age. eGFR results are calculated without a race factor using the 2020 CKD-EPI equation. Careful clinical correlation is recommended, particularly when comparing to results calculated using previous equations. The CKD-EPI equation is less accurate in patients with extremes of muscle mass, extra-renal metabolism of creatine, excessive creatine ingestion, or following therapy that affects renal tubular secretion. Performed By: #### P TT, PT, CP, MG, BNP #### [address] [phone] Stock Handler: Rock Hernandez MD Glucose [Mass/Vol] 94 mg/dL Normal 70-99 [facility] Comment on above: Performed By: #### P TT, PT, CP, MG, BNP #### [facility] [employer] [address] [place] [phone] Stock Handler: Rock Hernandez MD Potassium [Moles/Vol] 4.3 mmol/L Normal 3.7-5.3 [facility] Comment on above: Performed By: #### P TT, PT, CP, MG, BNP #### [facility] [employer] [address] [place] [phone] Stock Handler: Rock Hernandez MD Protein [Mass/Vol] 6.0 g/dL Low 6.4-8.3 [facility] Comment on above: Performed By: #### P TT, PT, CP, MG, BNP #### [facility] [employer] [address] [place] [phone] Stock Handler: Rock Hernandez MD Sodium [Moles/Vol] 139 mmol/L Normal 135-144 [facility] Comment on above: Performed By: #### P TT, PT, CP, MG, BNP #### [facility] [employer] [address] [place] [phone] Stock Handler: Rock Hernandez MD Urea nitrogen [Mass/Vol] 19 mg/dL Normal 8-23 [facility] Comment on above: Performed By: #### P TT, PT, CP, MG, BNP #### [facility] [employer] [address] [place] [phone] Stock Handler: Rock Hernandez MD Comprehensive Metabolic Pane [facility] 07-23-2022 Albumin [Mass/Vol] 3 g/dL Low 3.5 - 5.2 g/dL [facility] Albumin/Globulin [Mass ratio] 1.0 {ratio} 1.0 - 2.[address] [facility] ALP (Bld) [Catalytic activity/Vol] 120 U/L High 35 - 104 U/L [facility] ALT [Catalytic activity/Vol] 17 U/L 5 - 33 U/L [facility] Anion gap [Moles/Vol] 9 mmol/L 9 - 17 mmol/L [facility] AST [Catalytic activity/Vol] 29 U/L NINF - 32 U/L [facility] Bilirubin [Mass/Vol] 0.4 mg/dL 0.3 - 1.2 mg/dL [facility] Calcium [Mass/Vol] 7.9 mg/dL Low 8.6 - 10. 4 mg/dL [facility] Chloride [Moles/Vol] 109 mmol/L High 98 - 107 mmol/L [facility] CO2 [Moles/Vol] 21 mmol/L 20 - 31 mmol/L [facility] Creatinine [Mass/Vol] 0.87 mg/dL 0.50 - 0.90 mg/dL [facility] GFR/1.73 sq M.predicted MDRD (S/P/Bld) [Vol rate/Area] - PINF [facility] Comment on above: Effective Apr 28, 2022 These results are not intended for use in patients <18 years of age. eGFR results are calculated without a race factor using the 2020 CKD-EPI equation. Careful clinical correlation is recommended, particularly when comparing to results calculated using previous equations. The CKD-EPI equation is less accurate in patients with extremes of muscle mass, extra-renal metabolism of creatine, excessive creatine ingestion, or following therapy that affects renal tubular secretion. Glucose [Mass/Vol] 94 mg/dL 70 - 99 mg/dL [facility] Interpretation and review of laboratory results Abnormal [facility] Potassium [Moles/Vol] 4.3 mmol/L 3.7 - 5.3 mmol/L [facility] Protein [Mass/Vol] 6.0 g/dL Low 6.4 - 8.3 g/dL [facility] Sodium [Moles/Vol] 139 mmol/L 135 - 144 mmol/L [facility] Urea nitrogen (BldV) [Mass/Vol] 19 mg/dL 8 - 23 mg/dL [facility] FLUORO FOR SURGICAL PROCEDUR ESon 07-23-2022 FLUORO FOR SURGICAL PROCEDURES Radiology exam is complete. No Radiologist dictation. Please follow up with ordering provider. Final result Normal [facility] Radiology exam is co mplete. No Radiologist dictation. Please follow up with ordering provider. [facility]SOLID[facility] Immature Platelet Fractionon 07-23-2022 Platelet, Fluorescence Platelet clumps present, count appears decreased. [facility] LACTATE/LACTIC ACIDon 2021 Lactate [Moles/Vol] 1.8 mmol/L Normal 0.4-1.9 [facility] Comment on above: Performed By: #### L ACT #### [facility] [address] [address] [address] Fatoumata Garcia Lactate [Moles/Vol] 2.1 mmol/L Critically high 0.4-1.9 [facility] Comment on above: Performed By: #### L ACT #### [facility] [address] [address] [address] Fatoumata Garcia Magnesiumon 07-23-2022 Magnesium [Mass/Vol] 1.6 mg/dL Normal 1.6-2.6 [facility] Comment on above: Performed By: #### P TT, PT, CP, MG, BNP #### [facility] [employer] [address] [place], [place] [id number] Stock Handler: Rock Hernandez MD Magnesium [Mass/Vol] 1.6 mg/dL 1.6 - 2.6 mg/dL [facility] No Panel Informationon 07-[address] [facility] PH VENOUS BLOODon 07-23-2022 PCO2 VENOUS 41.6 mmHg Normal 40.0-52.0 [facility] Comment on above: Performed By: #### P HVEN #### [facility] [address] [address] [address] Fatoumata Garcia pH VENOUS 7.374 Normal 7.330-7.43 0 [facility] Comment on above: Performed By: #### P HVEN #### [facility] [address] [place] [address] Dr. Fatoumata Garcia PLT, Immature Fract.on 07-23 Platelet, Fluoresc. Platelet clumps pres ent, count appears decreased. Normal 138-453 [facility] Comment on above: Performed By: #### C DP, IPF #### [employer] [address] [id number] Stock Handler: Rock Hernandez MD PROF CHEM 8 (BAS METB)on Anion gap [Moles/Vol] 12.9 mmol/L Normal [facility] Comment on above: Performed By: #### U RCX #### [facility] [address] [address] [address] Fatoumata Garcia Calcium [Mass/Vol] 7.9 mg/dL Critically low 8.5-10.[address] [facility] Comment on above: Performed By: #### U RCX #### [facility] [address] [address] [address] Fatoumata Garcia Chloride [Moles/Vol] 106 mmol/L Normal 98-107 [facility] Comment on above: Performed By: #### U RCX #### [facility] [address] [address] [address] Fatoumata Garcia CO2 [Moles/Vol] 25.3 mmol/L Normal 21.0-32.0 [facility] Comment on above: Performed By: #### U RCX #### [facility] [address] [address] [address] Fatoumata Garcia Creatinine [Mass/Vol] 1.10 mg/dL Critically high 0.55-1.02 [facility] Comment on above: Performed By: #### U RCX #### [facility] [address] [address] [address] Fatoumata Garcia EGFR-AF NICARAGUAN 57 mL/min/1.73m2 Critically low >=60 [facility] Comment on above: Performed By: #### U RCX #### [facility] [address] [address] [address] Fatoumata Garcia EGFR-NON AF NICARAGUAN 47 mL/min/1.73m2 Critically low >=60 [facility] Comment on above: Performed By: #### U RCX #### [facility] [address] [address] [address] Fatoumata Garcia Glucose [Mass/Vol] 104 mg/dL Normal 74-106 [facility] Comment on above: Performed By: #### U RCX #### [facility] [address] [address] [address] Fatoumata Garcia Potassium [Moles/Vol] 4.2 mmol/L Normal 3.5-5.1 [facility] Comment on above: Performed By: #### U RCX #### [facility] [address] [address] [address] Fatoumata Garcia Sodium [Moles/Vol] 140 mmol/L Normal 136-145 [facility] Comment on above: Performed By: #### U RCX #### [facility] [address] [place] [address] Dr. Fatoumata Garcia Urea nitrogen [Mass/Vol] 22.0 mg/dL Critically high 7.0-18.0 [facility] Comment on above: Performed By: #### U RCX #### [facility] [address] [address] [address] Fatoumata Garcia Urea nitrogen/Creatinine [Mass ratio] 20.0 mg/mg Normal [facility] Comment on above: Performed By: #### U RCX #### [facility] [address] [place] [address] Dr. Fatoumata Garcia PTon 07-23-2022 INR Coag (PPP) [Relative time] 1.3 {INR} Normal [facility] Comment on above: Result Comment: Therapeutic Range: Moderate Anticoagulant Intensity: INR = 2.0-3.0 High Anticoagulant Intensity: INR = 2.5-3.5 Performed By: #### P TT, PT, CP, MG, BNP #### [facility] [employer] [address] [place] [id number] Stock Handler: Rock Hernandez MD PT Coag (PPP) [Time] 13.2 s High 9.1-12.3 [facility] Comment on above: Performed By: #### P TT, PT, CP, MG, BNP #### [employer] [address] [place] [address] Stock Handler: Rock Hernandez MD Protime-INRon 07-23-2022 INR Coag (Bld) [Relative time] 1.3 {INR} [facility] Comment on above: Therapeutic Range: Moderate Anticoagulant Intensity: INR = 2.0-3.0 High Anticoagulant Intensity: INR = 2.5-3.5 Interpretation and review of laboratory results Abnormal [facility] PT Coag (PPP) [Time] 13.[address] [facility] XR CHEST PORTABLEon 07-23-20 XR CHEST PORTABLE EXAMINATION: ONE XRAY VIEW OF THE CHEST 07/23/2022 10:26 am COMPARISON: None. HISTORY: ORDERING SYSTEM PROVIDED HISTORY: possible pneumonia TECHNOLOGIST PROVIDED HISTORY: possible pneumonia FINDINGS: Shallow inflation. The cardiomediastinal silhouette appears at the upper limits of normal. Linear opacities in the lung bases are noted. There is no consolidation, pneumothorax or evidence for edema. No evidence for effusion. No acute osseous abnormality is identified. IMPRESSION: Shallow inflation with findings favoring subsegmental atelectasis versus developing consolidation. Interpreted by: Javad Montoya MD Signed by: Javad Montoya MD 07/23/22 Final result Normal [facility] Shallow inflation wi th findings favoring subsegmental atelectasis versus developing consolidation. [facility] EXAMINATION: ONE XRAY VIEW OF THE CHEST 07/23/2022 10:26 am COMPARISON: None. HISTORY: ORDERING SYSTEM PROVIDED HISTORY: possible pneumonia TECHNOLOGIST PROVIDED HISTORY: possible pneumonia FINDINGS: Shallow inflation. The cardiomediastinal silhouette appears at the upper limits of normal. Linear opacities in the lung bases are noted. There is no consolidation, pneumothorax or evidence for edema. No evidence for effusion. No acute osseous abnormality is identified. [facility] Javad Montoya MD - 07/23/2022 EXAMINATION: ONE XRAY VIEW OF THE CHEST 07/23/2022 10:26 am COMPARISON: None. HISTORY: ORDERING SYSTEM PROVIDED HISTORY: possible pneumonia TECHNOLOGIST PROVIDED HISTORY: possible pneumonia FINDINGS: Shallow inflation. The cardiomediastinal silhouette appears at the upper limits of normal. Linear opacities in the lung bases are noted. There is no consolidation, pneumothorax or evidence for edema. No evidence for effusion. No acute osseous abnormality is identified. IMPRESSION: Shallow inflation with findings favoring subsegmental atelectasis versus developing consolidation. [facility] Work Phone: Radiology Study observation (narrative) [facility] Phone: XR CHEST PORTABLEOrdered By: Javad Montoya on 07-23-2022 [facility] Phone: CBC W MANUAL DIFFon 07-22-20 22 ATYPICAL LYMPH # Normal [facility] Comment on above: Performed By: #### U RCX #### [facility] [address] [place] [address] Dr. Fatoumata Garcia ATYPICAL LYMPH % Normal [facility] Comment on above: Performed By: #### U RCX #### [facility] [address] [place] [address] Dr. Fatoumata Garcia BAND # 0.2 103/ul Normal 0.0-0.[address] [facility] Comment on above: Performed By: #### U RCX #### [facility] [address] [place] [address] Dr. Fatoumata Garcia BAND % 4 % Normal 0-[address] [facility] Comment on above: Performed By: #### U RCX #### [facility] [address] [place] [address] Dr. Fatoumata Garcia BASOM # 0.00 103/ul Normal 0.00-0.[address] [facility] Comment on above: Performed By: #### U RCX #### [facility] [address] [place] [address] Dr. Fatoumata Garcia BASOM % 0.0 % Critically low 0.2-2.0 [facility] Comment on above: Performed By: #### U RCX #### [facility] [address] [place] [address] Dr. Fatoumata Garcia BLAST # Normal [facility] Comment on above: Performed By: #### U RCX #### [facility] [address] [place] [address] Dr. Fatoumata Garcia BLAST % Normal [facility] Comment on above: Performed By: #### U RCX #### [facility] [address] [address] [address] Fatoumata Garcia CORRECTED WBC Normal 4.0-11.0 [facility] Comment on above: Performed By: #### U RCX #### [facility] [address] [address] [address] Fatoumata Garcia EOS # 0.09 103/ul Normal 0.00-0.70 [facility] Comment on above: Performed By: #### U RCX #### [facility] [address] [address] [address] Fatoumata Garcia EOS% 2.0 % Normal 0.9-7.0 [facility] Comment on above: Performed By: #### U RCX #### [facility] [address] [place] [address] Dr. Fatoumata Garcia HCT 45.4 % Normal 36.0-48.0 [facility] Comment on above: Performed By: #### U RCX #### [facility] [address] [place] [address] Dr. Fatoumata Garcia HGB 14.5 g/dl Normal 12.0-16.0 [facility] Comment on above: Performed By: #### U RCX #### [facility] [address] [place] [address] Dr. Fatoumata Garcia LYMPHM # 0.35 103/ul Critically low 1.20-3.80 [facility] Comment on above: Performed By: #### U RCX #### [facility] [address] [address] [address] Fatoumata Garcia LYMPHM% 8.0 % Critically low 20.5-60.0 [facility] Comment on above: Performed By: #### U RCX #### [facility] [address] [address] [address] Fatoumata Garcia MCH 27.7 pg Normal 26.7-34.0 [facility] Comment on above: Performed By: #### U RCX #### [facility] [address] [address] [address] Fatoumata Garcia MCHC 31.9 g/dl Normal 29.9-35.2 [facility] Comment on above: Performed By: #### U RCX #### [facility] [address] [place] [address] Dr. Fatoumata Garcia MCV 86.8 fL Normal 81.0-99.0 [facility] Comment on above: Performed By: #### U RCX #### [facility] [address] [address] [address] Fatoumata Garcia METAMYELOCYTE # Normal [facility] Comment on above: Performed By: #### U RCX #### [facility] [address] [place] [address] Dr. Fatoumata Gracia METAMYELOCYTE % Normal [facility] Comment on above: Performed By: #### U RCX #### [facility] [address] [place] [address] Dr. Fatoumata Garcia MONOM# 0.04 103/ul Critically low 0.30-0.80 [facility] Comment on above: Performed By: #### U RCX #### [facility] [address] [place] [address] Dr. Fatoumata Garcia MONOM% 1.0 % Critically low 1.7-12.0 [facility] Comment on above: Performed By: #### U RCX #### [facility] [address] [address] [address] Fatoumata Garcia MPV 12.3 fL Normal 9.5-13.5 [facility] Comment on above: Performed By: #### U RCX #### [facility] [address] [place] [address] Dr. Fatoumata Garcia MYELOCYTE # Normal [facility] Comment on above: Performed By: #### U RCX #### [facility] [address] [place] [address] Dr. Fatoumata Garcia MYELOCYTE % Normal [facility] Comment on above: Performed By: #### U RCX #### [facility] [address] [address] [address] Fatoumata Garcia NRBC Normal [facility] Comment on above: Performed By: #### U RCX #### [facility] [address] [address] [address] Fatoumata Garcia PLT 134 103/ul Critically low 150-450 [facility] Comment on above: Performed By: #### U RCX #### [facility] [address] [address] [address] Fatoumata Garcia RBC 5.23 106/ul Normal 4.20-5.40 [facility] Comment on above: Performed By: #### U RCX #### [facility] [address] [address] [address] Fatoumata Garcia RDW 14.6 % Normal 11.0-15.0 [facility] Comment on above: Performed By: #### U RCX #### [facility] [address] [place] [address] Dr. Fatoumata Garcia SEG # 3.74 103/ul Normal 1.40-6.50 [facility] Comment on above: Performed By: #### U RCX #### [facility] [address] [place] [address] Dr. Fatoumata Garcia SEG % 85.0 % Critically high 43.0-75.0 [facility] Comment on above: Performed By: #### U RCX #### [facility] [address] [place] [address] Dr. Fatoumata Garcia WBC 4.4 103/ul Normal 4.0-11.0 [facility] Comment on above: Performed By: #### U RCX #### [facility] [address] [place] [address] ABD/PELV W CONon 07-22-20 CT ABD/PELV W CON CT ABDOMEN AND PELVI S WITH CONTRAST: INDICATION: UNSPECIFIED ABDOMINAL PAIN. COMPARISON: No previous abdomen and pelvis CT scans for comparison. There is a CT chest dated 10/09/2017 available for correlation.. TECHNIQUE:Multiple thin section transaxial slices were acquired through the abdomen and pelvis with intravenous contrast. Coronal and sagittal reconstructed images were reviewed. Oral contrastWas not administered. FINDINGS: LOWER CHEST: Peripheral patchy airspace densities are present within each lower lobe, lingula and right middle lobe. The imaging features are worrisome for an infectious process. This was not present on the older chest CT. LIVER: The liver is unremarkable. GALLBLADDER AND BILIARY SYSTEM: No obvious ductal dilation. No calcified stones. SPLEEN: The spleen is unremarkable. PANCREAS: The pancreas is unremarkable. ADRENAL GLANDS: The adrenal glands are unremarkable. KIDNEYS AND URETERS: There is moderate right-sided hydronephrosis and moderate right-sided proximal hydroureter secondary to a 5 mm sized distal right ureteral calculus. There is significant right-sided asymmetric perinephric fat stranding.There is no left-sided hydronephrosis. The left ureter is within normal limits. VASCULATURE: There is mild atherosclerotic plaque in the abdominal aorta without aneurysmal dilation. PERITONEUM/RETROPERITONEUM: Peritoneum/retroperitoneum is unremarkable. LYMPH NODES: No suspicious lymphadenopathy. GASTROINTESTINAL TRACT: The bowel is normal in caliber.There is chronic colonic diverticulosis of the colon without acute inflammation.The appendix is visualized and is not inflamed. BLADDER: The urinary bladder is unremarkable. REPRODUCTIVE SYSTEM: Reproductive system is unremarkable. BODY WALL: There is a tiny fat-containing umbilical hernia. 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 There is minimal anterolisthesis of L4-L5. IMPRESSION: 1. There is moderate right-sided hydronephrosis and proximal hydroureter secondary to a 5 mm sized distal right ureteral calculus. There is associated perinephric fat stranding of the right kidney. 2. There is patchy airspace disease present throughout each lower lobe, right middle lobe and lingula in the lung bases concerning for an infectious process. Electronically authenticated by: BETH TURCIOS Date: 2022-07-22 16:44 Normal [facility] Covid-19 PCR (CVDTB)on 06-27 SARS-CoV-2 (COVID-19) RNA JOANN+probe Ql (Unsp spec) Not detected Normal NOT DETECTED [facility] Comment on above: Result Comment: When diagnostic testing is negative, the possibility of a false negative should be considered in the context of a patient's recent exposures and the presence of clinical signs and symptoms consistent with SARS-CoV-2. This test is not yet approved or cleared by the [place] FDA. When there are no FDA-approved or cleared tests available, and other criteria are met, FDA can make tests available under an emergency access mechanism called an Emergency Use Authorization (EUA). The EUA for this test is supported by the Sr Vice President of Health and Human Service's declaration that circumstances exist to justify the emergency use of in vitro diagnostics for the detection and/or diagnosis of the virus that causes COVID-19. This EUA will remain in effect for the duration of the COVID-19 declaration justifying emergency of IVDs, unless it is terminated or revoked by the FDA (after which the test may no longer be used). Performed By: #### C VDTBH #### [facility] [address] [place] [address] Dr. Fatoumata Garcia ER URINE PROFILEon 2 Bilirubin Ql (U) Negative Normal NEGATIVE [facility] Comment on above: Performed By: #### U MICRO, ERUR #### [facility] [address] [place] [address] Dr. Fatoumata Garcia Clarity (U) SL CLOUDY Abnormal CLEAR [facility] Comment on above: Performed By: #### U MICRO, ERUR #### [facility] [address] [place] [address] Dr. Fatoumata Garcia Color (U) LT. YELLOW Normal YELLOW [facility] Comment on above: Performed By: #### U MICRO, ERUR #### [facility] [address] [place] [address] Dr. Fatoumata Garcia ERUAHD A micrscopic examina tion will be performed if indicated. Normal [facility] Comment on above: Performed By: #### U MICRO, ERUR #### [facility] [address] [place] [address] Dr. Fatoumata Garcia Glucose Ql (U) Negative Normal NEGATIVE [facility] Comment on above: Performed By: #### U MICRO, ERUR #### [facility] [address] [place] [address] Dr. Fatoumata Garcia Hemoglobin Ql (U) LARGE Abnormal NEGATIVE [facility] Comment on above: Performed By: #### U MICRO, ERUR #### [facility] [address] [place] [address] Dr. Fatoumata Garcia Ketones Ql (U) Negative Normal NEGATIVE [facility] Comment on above: Performed By: #### U MICRO, ERUR #### [facility] [address] [place] [address] Dr. Fatoumata Garcia LEUKOCYTES MODERATE Abnormal NEGATIVE [facility] Comment on above: Performed By: #### U MICRO, ERUR #### [facility] [address] [address] [address] Fatoumata Garcia Nitrite Ql (U) Positive Abnormal NEGATIVE [facility] Comment on above: Performed By: #### U MICRO, ERUR #### [facility] [address] [place] [address] Dr. Fatoumata Garcia pH (U) 6.0 [pH] Normal 5-9 [facility] Comment on above: Performed By: #### U MICRO, ERUR #### [facility] [address] [place] [address] Dr. Fatoumata Garcia Protein (U) [Mass/Vol] 30 mg/dL Abnormal NEGATIVE/ TRACE [facility] Comment on above: Performed By: #### U MICRO, ERUR #### [facility] [address] [place] [address] Dr. Fatoumata Garcia SPEC GRAVITY 1.020 Normal 1.005-<=1. 025 [facility] Comment on above: Performed By: #### U MICRO, ERUR #### [facility] [address] [place] [address] Dr. Fatoumata Garcia UR MICRO IND INDICATED Normal [facility] Comment on above: Performed By: #### U MICRO, ERUR #### [facility] [address] [place] [address] Dr. Fatoumata Garcia Urobilinogen Qn (U) 0.2 {Adrienne'U}/dL Normal 0.2 - 1. 0 [facility] Comment on above: Performed By: #### U MICRO, ERUR #### [facility] [address] [place] [address] Dr. Fatoumata Garcia LIPASEon 07-22-2022 Lipase [Catalytic activity/Vol] 82.0 U/L Normal 73.0-393.0 [facility] Comment on above: Performed By: #### C MP, LIPA #### [facility] [address] [place] [address] Dr. Fatoumata Garcia PROF 14(COMP METB)on 022 Albumin [Mass/Vol] 3.1 g/dL Critically low 3.4-5.0 [facility] Comment on above: Performed By: #### C MP, LIPA #### [facility] [address] [place] [address] Dr. Fatoumata Garcia Albumin/Globulin [Mass ratio] 0.8 {ratio} Normal [facility] Comment on above: Performed By: #### C MP, LIPA #### [facility] [address] [place] [address] Dr. Fatoumata Garcia ALP [Catalytic activity/Vol] 126 U/L Critically high 46-116 [facility] Comment on above: Performed By: #### C MP, LIPA #### [facility] [address] [place] [address] Dr. Fatoumata Garcia ALT [Catalytic activity/Vol] 16 U/L Normal 14-59 [facility] Comment on above: Performed By: #### C MP, LIPA #### [facility] [address] [place] [address] Dr. Fatoumata Garcia Anion gap [Moles/Vol] 14.4 mmol/L Normal [facility] Comment on above: Performed By: #### C MP, LIPA #### [facility] [address] [place] [address] Dr. Fatoumata Garcia AST [Catalytic activity/Vol] 22 U/L Normal 15-37 [facility] Comment on above: Performed By: #### C MP, LIPA #### [facility] [address] [place] [address] Dr. Fatoumata Garcia Bilirubin [Mass/Vol] 0.8 mg/dL Normal 0.2-1.0 [facility] Comment on above: Performed By: #### C MP, LIPA #### [facility] [address] [address] [address] Fatoumata Garcia Calcium [Mass/Vol] 8.5 mg/dL Normal 8.5-10.1 [facility] Comment on above: Performed By: #### C MP, LIPA #### [facility] [address] [address] [address] Fatoumata Garcia Chloride [Moles/Vol] 106 mmol/L Normal 98-[address] [facility] Comment on above: Performed By: #### C MP, LIPA #### [facility] [address] [address] [address] Fatoumata Garcia CO2 [Moles/Vol] 22.0 mmol/L Normal 21.0-32.0 [facility] Comment on above: Performed By: #### C MP, LIPA #### [facility] [address] [place] [address] Dr. Fatoumata Garcia Creatinine [Mass/Vol] 0.82 mg/dL Normal 0.55-1.[address] [facility] Comment on above: Performed By: #### C MP, LIPA #### [facility] [address] [place] [address] Dr. Fatoumata Garcia EGFR-AF NICARAGUAN >60 Normal >=60 [facility] Comment on above: Performed By: #### C MP, LIPA #### [facility] [address] [place] [address] Dr. Fatoumata Garcia EGFR-NON AF NICARAGUAN >60 Normal >=[address] [facility] Comment on above: Performed By: #### C MP, LIPA #### [facility] [address] [address] [address] Fatoumata Garcia Globulin (S) [Mass/Vol] 3.7 g/dL Normal [facility] Comment on above: Performed By: #### C MP, LIPA #### [facility] [address] [place] [address] Dr. Fatoumata Garcia Glucose [Mass/Vol] 100 mg/dL Normal 74-106 [facility] Comment on above: Performed By: #### C MP, LIPA #### [facility] [address] [address] [address] Fatoumata Garcia Potassium [Moles/Vol] 3.6 mmol/L Normal 3.5-5.[address] [facility] Comment on above: Performed By: #### C MP, LIPA #### [facility] [address] [place] [address] Dr. Fatoumata Garcia Protein [Mass/Vol] 6.8 g/dL Normal 6.4-8.2 [facility] Comment on above: Performed By: #### C MP, LIPA #### [facility] [address] [place] [address] Dr. Fatoumata Garcia Sodium [Moles/Vol] 139 mmol/L Normal 136-145 [facility] Comment on above: Performed By: #### C MP, LIPA #### [facility] [address] [place] [address] Dr. Fatoumata Garcia Urea nitrogen [Mass/Vol] 18.0 mg/dL Normal 7.0-18.0 [facility] Comment on above: Performed By: #### C MP, LIPA #### [facility] [address] [place] [address] Dr. Fatoumata Garcia Urea nitrogen/Creatinine [Mass ratio] 22.0 mg/mg Normal [facility] Comment on above: Performed By: #### C MP, LIPA #### [facility] [address] [place] [address] Dr. Fatoumata Garcia URINE MICROSCOPIC ONLYon BACTERIA LARGE Abnormal NONE SEEN The [facility] Comment on above: Performed By: #### U MICRO, ERUR #### [facility] [address] [place] [address] Dr. Fatoumata Garcia Bacteria identified Cx Nom (U) INDICATED Normal [facility] Comment on above: Performed By: #### U MICRO, ERUR #### [facility] [address] [place] [address] Dr. Fatoumata Garcia CAST NONE SEEN Normal NONE SEEN The [facility] Comment on above: Performed By: #### U MICRO, ERUR #### [facility] [address] [place], [place] [id number] Dr. Fatoumata Garcia Crystals LM Nom (Urine sed) NONE SEEN Normal NONE SEEN The [facility] Comment on above: Performed By: #### U MICRO, ERUR #### [facility] [address] [place] [address] Dr. Fatoumata Garcia Epithelial cells LM Ql (Urine sed) FEW Abnormal NONE SEEN /RARE [facility] Comment on above: Performed By: #### U MICRO, ERUR #### [facility] [address] [place] [address] Dr. Fatoumata Garcia MUCOUS NONE SEEN Normal NONE SEEN The [facility] Comment on above: Performed By: #### U MICRO, ERUR #### [facility] [address] [place] [address] Dr. Fatoumata Garcia RBC (U) [#/Vol] /uL Abnormal 0-2 The [facility] Comment on above: Performed By: #### U MICRO, ERUR #### [facility] [address] [place] [address] Dr. Fatoumata Garcia WBC 50-75 Abnormal NONE SEEN The [facility] Comment on above: Performed By: #### U MICRO, ERUR #### [facility] [address] [place] [address] Dr. Fatoumata Garcia Quick Fluon 06-10-2022 FLUAV Ab CF (S) [Titer] Negative [employer] [facility] [place] Other FLUBV Ab CF (S) [Titer] Negative [employer] Other SARS-CoV-2 (COVID-19) RNA NA A+probe Ql (Resp)on 06-10-2022 SARS-CoV-2 (COVID-19) RNA JOANN+probe Ql (Unsp spec) Negative [employer] [facility] [place] Other CHEMISTRYOrdered By: SYSTEM SYSTEM on 01-15-2022 Albumin [Mass/Vol] 3.6 g/dL Normal 3.3 - 5.0 gm/dL [facility] Albumin/Globulin [Mass ratio] 1.0 {ratio} Low 1.1 - 2.2 [facility] ALP [Catalytic activity/Vol] 89 [iU]/d Normal 21 - 98 Int._Unit/ L [facility] ALT No additional P-5'-P [Catalytic activity/Vol] 15 [iU]/d Normal 6 - 46 Int._Unit/ L [facility] Anion gap [Moles/Vol] 12 mmol/L Normal 6 - 16 mEq/L [facility] AST [Catalytic activity/Vol] 17 [iU]/d Normal 5 - 43 Int._Unit/ L [facility] Bilirubin [Mass/Vol] 0.4 mg/dL Normal 0.0 - 1.1 mg/dL [facility] Calcium [Mass/Vol] 9.1 mg/dL Normal 8.9 - 11. 1 mg/dL [facility] Chloride [Moles/Vol] 105 mmol/L Normal 101 - 111 mmol/L [facility] CO2 [Moles/Vol] 26 mmol/L Normal 21 - 31 mmol/L [facility] Creatinine [Mass/Vol] 0.8 mg/dL Normal 0.5 - 1.3 mg/dL [facility] Globulin (S) [Mass/Vol] 3.8 g/dL Normal 1.4 - 4.0 gm/dL [facility] Glucose [Mass/Vol] 100 mg/dL Normal 55 - 199 mg/dL [facility] Potassium [Moles/Vol] 3.8 mmol/L Normal 3.5 - 5.3 mmol/L [facility] Protein [Mass/Vol] 7.4 g/dL Normal 6.0 - 7.8 gm/dL [facility] Sodium [Moles/Vol] 139 mmol/L Normal 135 - 145 mmol/L [facility] Urea nitrogen [Mass/Vol] 20 mg/dL Normal 5 - 21 mg/dL [facility] Urea nitrogen/Creatinine [Mass ratio] 25 mg/mg High 10 - 20 [facility] HEMATOLOGYOrdered By: SYSTEM SYSTEM on 01-15-2022 Basophils/100 WBC (Bld) 0.6 % Normal 0.0 - 2.0 % [facility] Basophils/Leukocyte s Auto (Bld) [Pure # fraction] 0.0 E9/L Normal 0.0 - 0.2 E9/L [facility] Eosinophils/100 WBC (Bld) 2.9 % Normal 0.0 - 8.0 % [facility] Eosinophils/Leukocy yifan Auto (Bld) [Pure # fraction] 0.2 E9/L Normal 0.0 - 0.5 E9/L [facility] Lymphocytes/100 WBC (Bld) 26.8 % Normal 14.0 - 50.0 % [facility] Lymphocytes/Leukocy yifan Auto (Bld) [Pure # fraction] 2.1 E9/L Normal 1.0 - 4.0 E9/L [facility] Monocytes/100 WBC (Bld) 9.5 % Normal 4.0 - 14.0 % [facility] Monocytes/Leukocyte s Auto (Bld) [Pure # fraction] 0.7 E9/L Normal 0.2 - 1.0 E9/L [facility] Neutrophils/100 WBC (Bld) 60.2 % Normal 36.0 - 75.0 % [facility] Neutrophils/Leukocy yifan Auto (Bld) [Pure # fraction] 4.8 E9/L Normal 2.0 - 7.5 E9/L [facility] HEMATOLOGYOrdered By: Maxine daily on 01-15-2022 Erythrocyte distribution width (RBC) [Ratio] 15.1 % High 10.9 - 14.2 % [facility] Hematocrit (Bld) [Volume fraction] 39.6 % Normal 34.0 - 46.0 % [facility] Hemoglobin (Bld) [Mass/Vol] 13.3 g/dL Normal 12.0 - 16.0 gm/dL [facility] MCH (RBC) [Entitic mass] 29.9 pg Normal 27.0 - 34.0 pg [facility] MCHC (RBC) [Mass/Vol] 33.6 g/dL Normal 31.4 - 36.0 gm/dL [facility] MCV (RBC) [Entitic vol] 88.8 fL Normal 80.0 - 100.0 fL [facility] Platelet mean volume (Bld) [Entitic vol] 10.3 fL Normal 6.4 - 10.8 fL [facility] Platelets (Bld) [#/Vol] 251.0 E9/L Normal 150.0 - 500.0 E9/L [facility] RBC (Bld) [#/Vol] 4.4 E12/L Normal 4.3 - 5.9 E12/L [facility]eAutoSS WBC corrected for nucl RBC Auto (Bld) [#/Vol] 7.9 E9/L Normal 4.0 - 11.0 E9/L [facility] Audiology Evaluationon 06-03 Audiology Evaluation [facility]ERRICA [facility] [employer] [id number] [facility] : [address], [place] [address]Kdlxwejky EvaluationAudiology HPIDate of Iaxdxgg07/08/18Referring Keo Hale Diagnosis/ICD [id number] ComplaintThe patient is an 82 year old Female who presents with concerns regarding balance,dizziness and hearing loss. The patient reported history of dizziness and balanceconcerns, for which she had received medical care and vestibular rehabilitation at [facility] in [place]. She feels her symptoms have reduced, but are still persistent.The patient was referred for audiological evaluation in conjunction with today's officevisit with Dr. Browne.Audiology PMH/PSHPast Medical/Surgical HistoryReason For TestingDecreased Hearing, dizziness and balanceMedicationsMedication sPlease see chartAudiology Asmt/PlanAudiological FindingsAudiogramAudiometric testing indicated mild to severe sensorineural hearing loss bilaterally, withmoderate loss at 250Hz in the right ear. Word discrimination scores were excellentbilaterally. Tympanometric testing revealed normal middle ear pressure and staticcompliance bilaterally.Otoscopic ExamYesRight EarImpaction, removed by ENT prior to testingLeft EarImpaction, removed by ENT prior to testingReliabilityExcellentI mpressions/RecommendationsMi ld to severe sensorineural hearing loss bilaterally, with moderate loss at 250Hz in theright earExcellent word discrimination scoresNormal tympanogramsThe test results were discussed with the patient and she was returned to Dr. Browne forcompletion of her office visit.Test ReliabilityTest ReliabilityExcellentPatient/ Family EducationEducation TopicsResults of EvaluationEducation Given ToPatientOutcome of EducationVerbalizes UnderstandingBarriers to CareNoneCommentsMallory Pedersen M.A.Clinical AudiologistReport Date 06/03/18Electronically Signed Esig Date Esig Mallory HawthorneRacheal 06/03/18 1504 Normal [facility] Vital Signs Date Time Vital Sign Value Performing Clinician Nichole méndez 02-13-2025 11:12-0400 Body height 165.1 cm Yelena Michelle MD Work Phone: [facility] 02-13-2025 11:12-0400 Body mass index (BMI) [Ratio] 28.6 kg/m2 Yelena Michelle MD Work Phone: [facility] 02-13-2025 11:12-0400 Body weight 78.01 kg Yelena Michelle MD Work Phone: [facility] 02-13-2025 11:12-0400 Diastolic blood pressure 80 mm[Hg] Yelena Michelle MD Work Phone: [facility] 02-13-2025 11:12-0400 Heart rate 85 /min Yelena Michelle MD Work Phone: [facility] 02-13-2025 11:12-0400 SaO2% (BldA) [Mass fraction] 95 % Yelena Michelle MD Work Phone: [facility] 02-13-2025 11:12-0400 Systolic blood pressure 140 mm[Hg] Yelena Michelle MD Work Phone: [facility] 01-11-2025 11:17-0400 Body height 165.1 cm Yelena Michelle MD Work Phone: [facility] 01-11-2025 11:17-0400 Diastolic blood pressure 72 mm[Hg] Yelena Michelle MD Work Phone: [facility] 01-11-2025 11:17-0400 Heart rate 80 /min Yelena Michelle MD Work Phone: [facility] 01-11-2025 11:17-0400 SaO2% (BldA) [Mass fraction] 96 % Yelena Michelle MD Work Phone: [facility] 01-11-2025 11:17-0400 Systolic blood pressure 126 mm[Hg] Yelena Michelle MD Work Phone: [facility] 12-21-2024 10:20-0400 Body weight 79.83 kg Yelena Michelle MD Work Phone: [facility] 12-12-2024 14:27-0400 Body height 165.1 cm Yelena Michelle MD Work Phone: [phone] [place] [address] 12-12-2024 14:27-0400 Body mass index (BMI) [Ratio] 29.3 kg/m2 Yelena Michelle MD Work Phone: [phone] [place] [address] 12-12-2024 14:27-0400 Body weight 80 kg Yelena Michelle MD Work Phone: [phone] [place] [address] 12-12-2024 14:27-0400 Diastolic blood pressure 80 mm[Hg] Yelena Michelle MD Work Phone: [phone] [place] [address] 12-12-2024 14:27-0400 Heart rate 80 /min Yelena Michelle MD Work Phone: [facility] 12-12-2024 14:27-0400 Respiratory rate 18 /min Yelena Michelle MD Work Phone: [facility] 12-12-2024 14:27-0400 SaO2% (BldA) [Mass fraction] 96 % Yelena Michelle MD Work Phone: [facility] 12-12-2024 14:27-0400 Systolic blood pressure 130 mm[Hg] Yelena Michelle MD Work Phone: [facility] 11-09-2024 15:17-0400 Diastolic blood pressure 70 mm[Hg] Yelena Michelle MD Work Phone: [facility] 11-09-2024 15:17-0400 Heart rate 84 /min Yelena Michelle MD Work Phone: [facility] 11-09-2024 15:17-0400 SaO2% (BldA) [Mass fraction] 96 % Yelena Michelle MD Work Phone: [facility] 11-09-2024 15:17-0400 Systolic blood pressure 124 mm[Hg] Yelena Michelle MD Work Phone: [facility] 10-19-2024 14:46-0400 Body weight 80.28 kg Yelena Michelle MD Work Phone: [facility] 10-19-2024 14:46-0400 Diastolic blood pressure 80 mm[Hg] Yelena Michelle MD Work Phone: [facility] 10-19-2024 14:46-0400 Heart rate 100 /min Yelena Michelle MD Work Phone: [facility] 10-19-2024 14:46-0400 SaO2% (BldA) [Mass fraction] 94 % Yelena Michelle MD Work Phone: [facility] 10-19-2024 14:46-0400 Systolic blood pressure 150 mm[Hg] Yelena Michelle MD Work Phone: [facility] 10-12-2024 11:30-0400 Diastolic blood pressure 67 mm[Hg] Yelena Michelle MD Work Phone: [facility] 10-12-2024 11:30-0400 Heart rate 57 /min Yelena Michelle MD Work Phone: [facility] 10-12-2024 11:30-0400 Respiratory rate 20 /min Yelena Michelle MD Work Phone: [facility] 10-12-2024 11:30-0400 SaO2% (BldA) [Mass fraction] 94 % Yelena Michelle MD Work Phone: [facility] 10-12-2024 11:30-0400 Systolic blood pressure 164 mm[Hg] Yelena Michelle MD Work Phone: [facility] 10-12-2024 09:25-0400 Body height 165.1 cm Yelena Michelle MD Work Phone: [facility] 10-12-2024 09:25-0400 Body weight 81.64 kg Yelena Michelle MD Work Phone: [facility] 10-03-2024 14:14-0400 Body weight 81.64 kg Yelena Michelle MD Work Phone: [facility] 10-03-2024 14:14-0400 Diastolic blood pressure 70 mm[Hg] Yelena Michelle MD Work Phone: [facility] 10-03-2024 14:14-0400 Heart rate 132 /min Yelena Michelle MD Work Phone: [facility] 10-03-2024 14:14-0400 SaO2% (BldA) [Mass fraction] 96 % Yelena Michelle MD Work Phone: [facility] 10-03-2024 14:14-0400 Systolic blood pressure 118 mm[Hg] Yelena Michelle MD Work Phone: [facility] 09-23-2024 09:40-0500 Body height 165.1 cm Yelena Michelle MD Work Phone: [facility] 09-23-2024 09:40-0500 Body mass index (BMI) [Ratio] 29.9 kg/m2 Yelena Michelle MD Work Phone: [facility] 09-23-2024 09:40-0500 Body weight 81.64 kg Yelena Michelle MD Work Phone: [facility] 09-09-2024 09:21-0500 Blood Pressure Location Radha Waters [facility] 09-09-2024 09:21-0500 Diastolic blood pressure 70 mm[Hg] Radha Waters [facility] 09-09-2024 09:21-0500 Heart rate 75 /min Radha Waters [facility] 09-09-2024 09:21-0500 Respiratory rate 16 /min Mohamad Mouchli [facility] 09-09-2024 09:21-0500 Systolic blood pressure 110 mm[Hg] Mohamad Mouchli [facility] 08-29-2024 11:05-0500 Body temperature 97.52 [degF] Mhd Al-Marrawi [facility] 08-29-2024 11:05-0500 Diastolic blood pressure 75 mm[Hg] Mhd Al-Marrawi [facility] 08-29-2024 11:05-0500 Heart rate 74 /min d Al-Marrawi [facility] 08-29-2024 11:05-0500 Mean blood pressure 91 mm[Hg] d Al-Marrawi [facility] 08-29-2024 11:05-0500 Respiratory rate 16 /min Mhd Al-Marrawi [facility] 08-29-2024 11:05-0500 SaO2% (BldA) [Mass fraction] 95 % d Al-Marrawi [facility] 08-29-2024 11:05-0500 Systolic blood pressure 123 mm[Hg] d Ar-Marrawi [facility] 08-08-2024 14:10-0500 Body height 165.1 cm [facility] 08-08-2024 14:10-0500 Body mass index (BMI) [Ratio] 30.3 kg/m2 [facility] 08-08-2024 14:10-0500 Body weight 82.63 kg [facility] 07-28-2024 10:50-0500 Diastolic blood pressure 82 mm[Hg] Edmond Vidal [facility] 01-02-2025 10:50-0500 Mean blood pressure 101 mm[Hg] Edmond Vidal [facility] 07-28-2024 10:50-0500 Systolic blood pressure 140 mm[Hg] Edmond Vidal [facility] 07-28-2024 10:37-0500 Blood Pressure Location Edmond Vidal [facility] 07-28-2024 10:37-0500 Diastolic blood pressure 88 mm[Hg] Edmond Vidal [facility] 07-28-2024 10:37-0500 Heart rate 72 /min Edmond Vidal [facility] 07-28-2024 10:37-0500 Respiratory rate 18 /min Edmond Vidal [facility] 07-28-2024 10:37-0500 SaO2% (BldA) [Mass fraction] 96 % Edmond Vidal [facility] 07-28-2024 10:37-0500 Systolic blood pressure 150 mm[Hg] Edmond Vidal [facility] 07-18-2024 13:47-0500 Blood Pressure Location Yelena WAYNE [facility] 07-18-2024 13:47-0500 Body temperature 97.34 [degF] Yelena MICHELLE [facility] 07-18-2024 13:47-0500 Diastolic blood pressure 78 mm[Hg] Yelena MICHELLE [facility] 07-18-2024 13:47-0500 Heart rate 122 /min Yelena MICHELLE [facility] 07-18-2024 13:47-0500 SaO2% (BldA) [Mass fraction] 96 % Yelena MICHELLE [facility] 07-18-2024 13:47-0500 Systolic blood pressure 116 mm[Hg] Yelena MICHELLE [facility] 06-27-2024 11:18-0500 Blood Pressure Location Yelena MICHELLE [facility] 06-27-2024 11:18-0500 Body temperature 97.7 [degF] Yelena MICHELLE [facility] 06-27-2024 11:18-0500 Diastolic blood pressure 68 mm[Hg] Yelena MICHELLE [facility] 06-27-2024 11:18-0500 Heart rate 88 /min Yelena MICHELLE [facility] 06-27-2024 11:18-0500 SaO2% (BldA) [Mass fraction] 97 % Yelena MICHELLE [facility] 06-27-2024 11:18-0500 Systolic blood pressure 122 mm[Hg] Yelena MICHELLE [facility] 06-16-2024 10:32-0500 Blood Pressure Location Edmond Vidal [facility] 06-16-2024 10:32-0500 Diastolic blood pressure 72 mm[Hg] Edmond Vidal [facility] 06-16-2024 10:32-0500 Heart rate 82 /min Edmond Vidal [facility] 06-16-2024 10:32-0500 Respiratory rate 16 /min Edmond Vidal [facility] 06-16-2024 10:32-0500 SaO2% (BldA) [Mass fraction] 96 % Edmond Vidal [facility] 06-16-2024 10:32-0500 Systolic blood pressure 124 mm[Hg] Edmond Vidal [facility] 06-15-2024 12:37-0500 Blood Pressure Location Mohamad Mouchli [facility] 06-15-2024 12:37-0500 Diastolic blood pressure 72 mm[Hg] Mohamad Mouchli [facility] 06-15-2024 12:37-0500 Heart rate 84 /min Mohamad Mouchli [facility] 06-15-2024 12:37-0500 Systolic blood pressure 116 mm[Hg] Mohamad Mouchli [facility] 04-26-2024 10:01-0400 Blood Pressure Location CORAZON PENNY [facility] 04-26-2024 10:01-0400 Diastolic blood pressure 84 mm[Hg] CORAZON PENNY [facility] 04-26-2024 10:01-0400 Heart rate 129 /min CORAZON PENNY [facility] 04-26-2024 10:01-0400 Respiratory rate 19 /min CORAZON PENNY [facility] 04-26-2024 10:01-0400 Systolic blood pressure 127 mm[Hg] CORAZON PENNY [facility] 04-11-2024 13:44-0400 Diastolic blood pressure 80 mm[Hg] Yelena Osorio [facility] 04-11-2024 13:44-0400 Heart rate 72 /min Yelena Osorio [facility] 04-11-2024 13:44-0400 Systolic blood pressure 176 mm[Hg] Yelena Osorio [facility] 04-05-2024 13:56-0400 Diastolic blood pressure 78 mm[Hg] Yelena MICHELLE [facility] 04-05-2024 13:56-0400 Mean blood pressure 100 mm[Hg] Yelena MICHELLE [facility] 04-05-2024 13:56-0400 Systolic blood pressure 144 mm[Hg] Yelena MICHELLE [facility] 04-05-2024 13:36-0400 Blood Pressure Location Yelena MICHELLE [facility] 04-05-2024 13:36-0400 Body temperature 98.06 [degF] Yelena MICHELLE [facility] 04-05-2024 13:36-0400 Diastolic blood pressure 80 mm[Hg] Yelena MICHELLE [facility] 04-05-2024 13:36-0400 Heart rate 80 /min Yelena MICHELLE [facility] 04-05-2024 13:36-0400 SaO2% (BldA) [Mass fraction] 95 % Yelena MICHELLE [facility] 04-05-2024 13:36-0400 Systolic blood pressure 144 mm[Hg] Yelena MICHELLE [facility] 02-29-2024 15:03-0400 Body temperature 98.24 [degF] Mhd Al-Marrawi [facility] 02-29-2024 15:03-0400 Diastolic blood pressure 78 mm[Hg] Mhd Al-Marrawi [facility] 02-29-2024 15:03-0400 Heart rate 79 /min d Al-Marrawi [facility] 02-29-2024 15:03-0400 Mean blood pressure 92 mm[Hg] d Al-Marrawi [facility] 02-29-2024 15:03-0400 Respiratory rate 16 /min [facility] Al-Marrawi [facility] 02-29-2024 15:03-0400 SaO2% (BldA) [Mass fraction] 96 % [facility] Al-Marrawi [facility] 02-29-2024 15:03-0400 Systolic blood pressure 121 mm[Hg] [facility] Al-Marrawi [facility] 02-29-2024 09:15-0400 Diastolic blood pressure 84 mm[Hg] Yelena MICHELLE [facility] 02-29-2024 09:15-0400 Mean blood pressure 102 mm[Hg] Yelena MICHELLE [facility] 02-29-2024 09:15-0400 Systolic blood pressure 138 mm[Hg] Yelena MICHELLE [facility] 02-29-2024 09:02-0400 Blood Pressure Location Yelena MICHELLE [facility] 02-29-2024 09:02-0400 Body temperature 98.06 [degF] Yelena MICHELLE [facility] 02-29-2024 09:02-0400 Diastolic blood pressure 92 mm[Hg] Yelena MICHELLE [facility] 02-29-2024 09:02-0400 Heart rate 80 /min Yelena MICHELLE [facility] 02-29-2024 09:02-0400 SaO2% (BldA) [Mass fraction] 96 % Yelena MICHELLE [facility] 02-29-2024 09:02-0400 Systolic blood pressure 138 mm[Hg] Yelena MICHELLE [facility] 01-14-2024 11:07-0400 Blood Pressure Location Yelena MICHELLE [facility] 01-14-2024 11:07-0400 Diastolic blood pressure 70 mm[Hg] Yelena MICHELLE [facility] 01-14-2024 11:07-0400 Heart rate 73 /min Yelena MICHELLE [facility] 01-14-2024 11:07-0400 SaO2% (BldA) [Mass fraction] 97 % Yelena MICHELLE [facility] 01-14-2024 11:07-0400 Systolic blood pressure 128 mm[Hg] Yelena MICHELLE [facility] 01-11-2024 13:02-0400 Blood Pressure Location Yelena Osorio [facility] 01-11-2024 13:02-0400 Diastolic blood pressure 86 mm[Hg] Yelena Osorio [facility] 01-11-2024 13:02-0400 Heart rate 74 /min Yelena Osorio [facility] 01-11-2024 13:02-0400 Systolic blood pressure 136 mm[Hg] Yelena Osorio [facility] 12-16-2023 13:44-0400 Blood Pressure Location Jan Perera [facility] 12-16-2023 13:44-0400 Diastolic blood pressure 78 mm[Hg] Jan Perera [facility] 12-16-2023 13:44-0400 Heart rate 80 /min Jan Munozerson [facility] 12-16-2023 13:44-0400 SaO2% (BldA) [Mass fraction] 96 % Jan Munozerson [facility] 12-16-2023 13:44-0400 Systolic blood pressure 130 mm[Hg] Jan Perera [facility] 12-14-2023 13:50-0400 Blood Pressure Location Tammy Winstonz [facility] 12-14-2023 13:50-0400 Body temperature 96.8 [degF] Tammy Cantu [facility] 12-14-2023 13:50-0400 Diastolic blood pressure 73 mm[Hg] Tammy Cantu [facility] 12-14-2023 13:50-0400 Heart rate 75 /min Tammy Cantu [facility] 12-14-2023 13:50-0400 Systolic blood pressure 137 mm[Hg] Tammy Cantu [facility] 10-16-2023 13:24-0400 Diastolic blood pressure 72 mm[Hg] Jan Perera [facility] 10-16-2023 13:24-0400 Heart rate 80 /min Jan Perera [facility] 10-16-2023 13:24-0400 SaO2% (BldA) [Mass fraction] 96 % Jan Perera [facility] 10-16-2023 13:24-0400 Systolic blood pressure 126 mm[Hg] Jan Perera [facility] 10-12-2023 15:47-0400 Blood Pressure Location Yelena MICHELLE [facility] 10-12-2023 15:47-0400 Body temperature 98.06 [degF] Yelena MICHELLE [facility] 10-12-2023 15:47-0400 Diastolic blood pressure 78 mm[Hg] Yelena MICHELLE [facility] 10-12-2023 15:47-0400 Heart rate 60 /min Yelena MICHELLE [facility] 10-12-2023 15:47-0400 SaO2% (BldA) [Mass fraction] 96 % Yelena MICHELLE [facility] 10-12-2023 15:47-0400 Systolic blood pressure 126 mm[Hg] Yelena MICHELLE [facility] 10-09-2023 11:08-0400 Diastolic blood pressure 86 mm[Hg] Yelena Osorio [facility] 10-09-2023 11:08-0400 Mean blood pressure 108 mm[Hg] Yelena Osorio [facility] 10-09-2023 11:08-0400 Systolic blood pressure 151 mm[Hg] Yelena Osorio [facility] 10-09-2023 11:05-0400 Blood Pressure Location Yelena Osorio [facility] 10-09-2023 11:05-0400 Diastolic blood pressure 99 mm[Hg] Yelena Osorio [facility] 10-09-2023 11:05-0400 Heart rate 76 /min Yelena Yeboahy [facility] 10-09-2023 11:05-0400 Respiratory rate 16 /min Yelena Jamesurany [facility] 10-09-2023 11:05-0400 Systolic blood pressure 170 mm[Hg] Yelena Yeboahy [facility] 10-03-2023 16:18-0500 Hourly Rounding Chalo ENRIKE [facility] 10-03-2023 16:18-0500 Promise to Return Chalo ENRIKE [facility] 10-03-2023 15:50-0500 Heart rate 58 /min Chalo ENRIKE [facility] 10-03-2023 15:50-0500 Respiratory rate 18 /min Chalo ENRIKE [facility] 10-03-2023 15:47-0500 Hourly Rounding Chalo ENRIKE [facility] 10-03-2023 15:47-0500 Promise to Return Chalo ENRIKE [facility] 10-03-2023 15:43-0500 SaO2% (BldA) [Mass fraction] 95 % Chalo ENRIKE [facility] 10-03-2023 15:39-0500 Heart rate 69 /min Chalo ENRIKE [facility] 10-03-2023 15:39-0500 Respiratory rate 18 /min Chalo ENRIKE [facility] 10-03-2023 15:05-0500 Heart rate 61 /min Chalo ENRIKE [facility] 10-03-2023 15:05-0500 SaO2% (BldA) [Mass fraction] 95 % Chalobetty SUTHERLANDSLIN [facility] 10-03-2023 15:04-0500 Diastolic blood pressure 58 mm[Hg] Chalo ENRIKE [facility] 10-03-2023 15:04-0500 Mean blood pressure 73 mm[Hg] Chalobetty SUTHERLANDSLIN [facility] 10-03-2023 15:04-0500 Systolic blood pressure 102 mm[Hg] Chalo ENRIKE [facility] 10-03-2023 15:04-0500 Body temperature 97.52 [degF] Chalobetty SUTHERLANDSLIN [facility] 10-03-2023 14:40-0500 Hourly Rounding Chalo SUTHERLANDSLIN [facility] 10-03-2023 14:40-0500 Promise to Return Chalobetty SUTHERLANDSLIN [facility] 10-03-2023 12:13-0500 SaO2% (BldA) [Mass fraction] 92 % Chalo SUTHERLANDSLIN [facility] 10-03-2023 12:12-0500 Body temperature 97.34 [degF] Chalobetty SUTHERLANDSLIN [facility] 10-03-2023 12:10-0500 Diastolic blood pressure 77 mm[Hg] Chalo ENRIKE [facility] 10-03-2023 12:10-0500 Mean blood pressure 93 mm[Hg] Chalo ENRIKE [facility] 10-03-2023 12:10-0500 Systolic blood pressure 126 mm[Hg] Chalo ENRIKE [facility] 10-03-2023 11:54-0500 Respiratory rate 18 /min Chalo ENRIKE [facility] 10-03-2023 09:50-0500 Diastolic blood pressure 72 mm[Hg] Chalo ENRIKE [facility] 10-03-2023 09:50-0500 Heart rate 63 /min Chalo ENRIKE [facility] 10-03-2023 09:50-0500 Systolic blood pressure 134 mm[Hg] Chalo ENRIKE [facility] 10-03-2023 07:37-0500 Mean blood pressure 93 mm[Hg] Chalo ENRIKE [facility] 10-03-2023 07:37-0500 Body temperature 98.24 [degF] Chalo ENRIKE [facility] 10-02-2023 15:24-0500 Heart rate 90 /min Chalo ENRIKE [facility] 10-02-2023 11:17-0500 Heart rate 110 /min Chalo ENRIKE [facility] 10-02-2023 10:00-0500 Blood Pressure Location Chalo ENRIKE [facility] 10-02-2023 10:00-0500 Mean blood pressure 90 mm[Hg] Chalo ENRIKE [facility] 10-01-2023 09:11-0500 Heart rate 80 /min Chalo ENRIKE [facility] 10-01-2023 05:31-0500 Blood Pressure Location Chalo ENRIKE [facility] 10-01-2023 05:31-0500 Mean blood pressure 88 mm[Hg] Chalo ENRIKE [facility] 10-01-2023 04:31-0500 Heart rate 112 /min Chalo ENRIKE [facility] 09-30-2023 23:11-0500 Blood Pressure Location Chalo ENRIKE [facility] 09-30-2023 23:11-0500 Heart rate 135 /min Chalo ENRIKE [facility] 09-30-2023 22:00-0500 Mean blood pressure 100 mm[Hg] Cahlo ENRIKE [facility] 09-30-2023 22:00-0500 Respiratory rate 24 /min Chalo NERIKE [facility] 09-30-2023 21:00-0500 Respiratory rate 48 /min Chalo ENRIKE [facility] 09-30-2023 20:30-0500 Respiratory rate 52 /min Chalo ENRIKE [facility] 09-30-2023 17:00-0500 Mean blood pressure 98 mm[Hg] Chalo ENRIKE [facility] 09-30-2023 16:58-0500 gluc 110 mg/dL Chalo ENRIKE [facility] 09-30-2023 16:58-0500 gluc Chalo ENRIKE [facility] 09-30-2023 16:51-0500 Diastolic Blood Pressure Invasive 70 mm[Hg] Chalo ENRIKE [facility] 09-30-2023 16:51-0500 Systolic blood pressure 155 mm[Hg] Chalo ENRIKE [facility] 09-17-2023 13:18-0500 Diastolic blood pressure 86 mm[Hg] Yelena MICHELLE [facility] 09-17-2023 13:18-0500 Mean blood pressure 106 mm[Hg] Yelena MICHELLE [facility] 09-17-2023 13:18-0500 Systolic blood pressure 146 mm[Hg] Yelena MICHELLE [facility] 09-17-2023 13:06-0500 Blood Pressure Location Yelena MICHELLE [facility] 09-17-2023 13:06-0500 Body temperature 98.06 [degF] Yelena WAYNE [facility] 09-17-2023 13:06-0500 Diastolic blood pressure 88 mm[Hg] Yelena WAYNE [facility] 09-17-2023 13:06-0500 Heart rate 120 /min Yelena MICHELLE [facility] Comment on above: Result Comment: irregular 09-17-2023 13:06-0500 SaO2% (BldA) [Mass fraction] 97 % Yelena MICHELLE [facility] 09-17-2023 13:06-0500 Systolic blood pressure 144 mm[Hg] Yelena MICHELLE [facility] 09-16-2023 15:00-0500 Diastolic blood pressure 88 mm[Hg] Cale Hoover [facility] 09-16-2023 15:00-0500 Heart rate 77 /min Cale Hoover [facility] 09-16-2023 15:00-0500 Mean blood pressure 115 mm[Hg] Cale Hoover [facility] 09-16-2023 15:00-0500 Respiratory rate 20 /min Cale Kiko [facility] 09-16-2023 15:00-0500 SaO2% (BldA) [Mass fraction] 97 % Cale Kiko [facility] 09-16-2023 15:00-0500 Systolic blood pressure 169 mm[Hg] Cale Kiko [facility] 09-16-2023 14:30-0500 Diastolic blood pressure 87 mm[Hg] Cale Kiko [facility] 09-16-2023 14:30-0500 Heart rate 72 /min Cale Kiko [facility] 09-16-2023 14:30-0500 Mean blood pressure 116 mm[Hg] Cale Kiko [facility] 09-16-2023 14:30-0500 Respiratory rate 22 /min Cale Kiko [facility] 09-16-2023 14:30-0500 SaO2% (BldA) [Mass fraction] 93 % Cale Kiko [facility] 09-16-2023 14:30-0500 Systolic blood pressure 175 mm[Hg] Cale Kiko [facility] 09-16-2023 14:00-0500 Diastolic blood pressure 138 mm[Hg] Cale Kiko [facility] 09-16-2023 14:00-0500 Heart rate 73 /min Cale Kiko [facility] 09-16-2023 14:00-0500 Mean blood pressure 146 mm[Hg] Cale Kiko [facility] 09-16-2023 14:00-0500 Respiratory rate 24 /min Cale Hoover [facility] 09-16-2023 14:00-0500 Systolic blood pressure 162 mm[Hg] Cale Hoover [facility] 09-16-2023 11:01-0500 Body temperature 98.06 [degF] Cale Hoover [facility] 09-16-2023 11:01-0500 Heart rate 120 /min Cale Hoover [facility] 09-16-2023 11:01-0500 Respiratory rate 18 /min Cale Hoover [facility] 09-15-2023 14:25-0500 Diastolic blood pressure 80 mm[Hg] Tammy Pepe [facility] 09-15-2023 14:25-0500 Heart rate 78 /min Tammy Pepe [facility] 09-15-2023 14:25-0500 Mean blood pressure 110 mm[Hg] Tammy Pepe [facility] 09-15-2023 14:25-0500 Systolic blood pressure 170 mm[Hg] Tammy Pepe [facility] 09-15-2023 13:56-0500 Diastolic blood pressure 76 mm[Hg] Tammy Pepe [facility] 09-15-2023 13:56-0500 Mean blood pressure 114 mm[Hg] Tammy Pepe [facility] 09-15-2023 13:56-0500 Systolic blood pressure 190 mm[Hg] Tammy Pepe [facility] 09-15-2023 13:46-0500 Blood Pressure Location Tammy Pepe [facility] 09-15-2023 13:46-0500 Diastolic blood pressure 80 mm[Hg] Tammy Cantu [facility] 09-15-2023 13:46-0500 Heart rate 49 /min Tammy Cantu [facility] 09-15-2023 13:46-0500 Respiratory rate 16 /min Tammy Cantu [facility] 09-15-2023 13:46-0500 Systolic blood pressure 160 mm[Hg] Tammy Cantu [facility] 08-03-2023 09:34-0500 Body temperature 97.52 [degF] Mhd Al-Marrawi [facility] 08-03-2023 09:34-0500 Diastolic blood pressure 101 mm[Hg] Mhd Al-Marrawi [facility] 08-03-2023 09:34-0500 Heart rate 122 /min Mhd Al-Marrawi [facility] 08-03-2023 09:34-0500 Respiratory rate 18 /min Mhd Al-Marrawi [facility] 08-03-2023 09:34-0500 SaO2% (BldA) [Mass fraction] 95 % Mhd Al-Marrawi [facility] 08-03-2023 09:34-0500 Systolic blood pressure 147 mm[Hg] Mhd Al-Marrawi [facility] 06-01-2023 13:21-0500 Diastolic blood pressure 90 mm[Hg] Yelena MICHELLE [facility] 06-01-2023 13:21-0500 Mean blood pressure 105 mm[Hg] Yelena MICHELLE [facility] 06-01-2023 13:21-0500 Systolic blood pressure 136 mm[Hg] Yelena MICHELLE [facility] 06-01-2023 13:09-0500 Blood Pressure Location Yelena MICHELLE [facility] 06-01-2023 13:09-0500 Body temperature 97.88 [degF] Yelena MICHELLE [facility] 06-01-2023 13:09-0500 Diastolic blood pressure 92 mm[Hg] Yelena MICHELLE [facility] 06-01-2023 13:09-0500 Heart rate 128 /min Yelena MICHELLE [facility] 06-01-2023 13:09-0500 SaO2% (BldA) [Mass fraction] 95 % Yelena MICHELLE [facility] 06-01-2023 13:09-0500 Systolic blood pressure 136 mm[Hg] Yelena MICHELLE [facility] 05-25-2023 14:00-0400 Blood Pressure Location Mhd Al-Marrawi [facility] 05-25-2023 14:00-0400 Body temperature 96.98 [degF] Mhd Al-Marrawi [facility] 05-25-2023 14:00-0400 Diastolic blood pressure 90 mm[Hg] Mhd Al-Marrawi [facility] 05-25-2023 14:00-0400 Heart rate 50 /min Mhd Al-Marrawi [facility] 05-25-2023 14:00-0400 Respiratory rate 14 /min Mhd Al-Marrawi [facility] 05-25-2023 14:00-0400 Systolic blood pressure 140 mm[Hg] Mhd Al-Marrawi [facility] 05-25-2023 11:02-0400 Body height 165.1 cm MD Yelena Michelle Work Phone: [facility] 05-25-2023 11:02-0400 Body weight 86.18 kg MD Yelena Michelle Work Phone: [facility] 05-25-2023 11:02-0400 Diastolic blood pressure 74 mm[Hg] MD Yelena Michelle Work Phone: [facility] 05-25-2023 11:02-0400 Heart rate 90 /min MD Yelena Michelle Work Phone: [facility] 05-25-2023 11:02-0400 Respiratory rate 18 /min MD Yelena Michelle Work Phone: [facility] 05-25-2023 11:02-0400 SaO2% (BldA) [Mass fraction] 96 % Mhd Al-Marrawi [facility] 05-25-2023 11:02-0400 Systolic blood pressure 154 mm[Hg] MD Yelena Michelle Work Phone: [facility] 04-14-2023 09:24-0400 Blood Pressure Location Tammy Cantu [facility] 04-14-2023 09:24-0400 Body temperature 96.98 [degF] Tammy Cantu [facility] 04-14-2023 09:24-0400 Diastolic blood pressure 83 mm[Hg] Tammy Cantu [facility] 04-14-2023 09:24-0400 Heart rate 79 /min Tammy Cantu [facility] 04-14-2023 09:24-0400 Systolic blood pressure 121 mm[Hg] Tammy Cantu [facility] 04-10-2023 09:23-0400 Diastolic blood pressure 80 mm[Hg] Yelena Osorio [facility] 04-10-2023 09:23-0400 Heart rate 73 /min Yelena Yeboahy [facility] 04-10-2023 09:23-0400 Mean blood pressure 100 mm[Hg] Yelena Yeboahy [facility] 04-10-2023 09:23-0400 Systolic blood pressure 142 mm[Hg] Yelena Yeboahy [facility] 04-10-2023 09:23-0400 Blood Pressure Location Yelena Yeboahy [facility] 04-10-2023 09:22-0400 Heart rate 75 /min Yelena Jamesurany [facility] 04-10-2023 09:22-0400 SaO2% (BldA) [Mass fraction] 93 % Yelena Yeboahy [facility] 04-10-2023 09:21-0400 Respiratory rate 18 /min Yelena Yeboahy [facility] 04-10-2023 09:21-0400 Body temperature 97.52 [degF] Yelena Yeboahy [facility] 04-10-2023 09:21-0400 Blood Pressure Location Yelena Jamesurany [facility] 04-10-2023 09:21-0400 Diastolic blood pressure 86 mm[Hg] Yelena Yeboahy [facility] 04-10-2023 09:21-0400 Mean blood pressure 105 mm[Hg] Yelena Mourany [facility] 04-10-2023 09:21-0400 Systolic blood pressure 144 mm[Hg] Yelena Mourany [facility] 03-13-2023 11:44-0400 Diastolic blood pressure 80 mm[Hg] Yelena Mourany [facility] 03-13-2023 11:44-0400 Mean blood pressure 102 mm[Hg] Yelena Mourany [facility] 03-13-2023 11:44-0400 Systolic blood pressure 146 mm[Hg] Yelena Mourany [facility] 03-13-2023 11:40-0400 Blood Pressure Location Yelena Obinnay [facility] 03-13-2023 11:40-0400 Diastolic blood pressure 80 mm[Hg] Yelena Mourany [facility] 03-13-2023 11:40-0400 Heart rate 80 /min Yelena Jamesurany [facility] 03-13-2023 11:40-0400 Respiratory rate 16 /min Yelena Mourany [facility] 03-13-2023 11:40-0400 Systolic blood pressure 153 mm[Hg] Yelena Yeboahy [facility] 02-20-2023 12:07-0400 Blood Pressure Location Yelena MICHELLE [facility] 02-20-2023 12:07-0400 Body temperature 97.7 [degF] Yelena MICHELLE [facility] 02-20-2023 12:07-0400 Diastolic blood pressure 72 mm[Hg] Yelena MICHELLE [facility] 02-20-2023 12:07-0400 Heart rate 86 /min Yelena MICHELLE [facility] 02-20-2023 12:07-0400 SaO2% (BldA) [Mass fraction] 95 % Yelena MICHELLE [facility] 02-20-2023 12:07-0400 Systolic blood pressure 128 mm[Hg] Yelena MICHELLE [facility] 01-13-2023 11:06-0400 Blood Pressure Location Yelena MICHELLE [facility] 01-13-2023 11:06-0400 Body temperature 97.88 [degF] Yelena MICHELLE [facility] 01-13-2023 11:06-0400 Diastolic blood pressure 80 mm[Hg] Yelena MICHELLE [facility] 01-13-2023 11:06-0400 Heart rate 73 /min Yelena MICHELLE [facility] 01-13-2023 11:06-0400 SaO2% (BldA) [Mass fraction] 97 % Yelena MICHELLE [facility] 01-13-2023 11:06-0400 Systolic blood pressure 130 mm[Hg] Yelena MICHELLE [facility] 12-25-2022 10:43-0400 Blood Pressure Location Tammy Cantu [facility] 12-25-2022 10:43-0400 Body temperature 96.98 [degF] Tammy Cantu [facility] 12-25-2022 10:43-0400 Diastolic blood pressure 78 mm[Hg] Tammy Cantu [facility] 12-25-2022 10:43-0400 Heart rate 81 /min Tammy Cantu [facility] 12-25-2022 10:43-0400 Systolic blood pressure 123 mm[Hg] Tammy Cantu [facility] 12-02-2022 13:12-0400 Blood Pressure Location CORAZON PENNY [facility] 12-02-2022 13:12-0400 Diastolic blood pressure 70 mm[Hg] CORAZON PENNY [facility] 12-02-2022 13:12-0400 Heart rate 68 /min CORAZON PENNY [facility] 12-02-2022 13:12-0400 Respiratory rate 16 /min CORAZON PENNY [facility] 12-02-2022 13:12-0400 Systolic blood pressure 128 mm[Hg] CORAZON PENNY [facility] 11-27-2022 11:15-0400 Body height 166.37 cm Dallin Contreras II Other [employer] Other 11-27-2022 11:15-0400 Body mass index (BMI) [Ratio] 30.15 kg/m2 Dallin Sharmaisle II Other [employer] Other 11-27-2022 11:15-0400 Body weight 83.46 kg Dallin Contreras II Other [employer] Other 10-30-2022 11:30-0400 Body height 166.37 cm Dallin Contreras II Other [employer] Other 10-30-2022 11:30-0400 Body mass index (BMI) [Ratio] 30.15 kg/m2 Dallin Contreras II Other [employer] Other 10-30-2022 11:30-0400 Body weight 83.46 kg Dallin Contreras II Other [employer] Other 10-21-2022 11:55-0400 Blood Pressure Location Yelena MICHELLE [facility] 10-21-2022 11:55-0400 Body temperature 97.52 [degF] Yelena MICHELLE [facility] 10-21-2022 11:55-0400 Diastolic blood pressure 64 mm[Hg] Yelena WAYNE [facility] 10-21-2022 11:55-0400 Heart rate 84 /min Yelena MICHELLE [facility] 10-21-2022 11:55-0400 SaO2% (BldA) [Mass fraction] 96 % Yel[facility] MICHELLE [facility] [facility] 10-21-2022 11:55-0400 Systolic blood pressure 126 mm[Hg] Yelena MICHELLE [facility] 09-24-2022 10:25-0500 Blood Pressure Location Tammy Cantu [facility] 09-24-2022 10:25-0500 Body temperature 97.34 [degF] Tammy Cantu [facility] 09-24-2022 10:25-0500 Diastolic blood pressure 70 mm[Hg] Tammy Cantu [facility] 09-24-2022 10:25-0500 Heart rate 85 /min Tammy Cantu [facility] 09-24-2022 10:25-0500 Systolic blood pressure 114 mm[Hg] Tammy Cantu [facility] 09-18-2022 11:48-0500 Blood Pressure Location Yelena MICHELLE [facility] 09-18-2022 11:48-0500 Body temperature 97.7 [degF] Yelena MICHELLE [facility] 09-18-2022 11:48-0500 Diastolic blood pressure 70 mm[Hg] Yelena MICHELLE [facility] 09-18-2022 11:48-0500 Heart rate 90 /min Yelena MICHELLE [facility] 09-18-2022 11:48-0500 SaO2% (BldA) [Mass fraction] 97 % Yelena MICHELLE [facility] 09-18-2022 11:48-0500 Systolic blood pressure 132 mm[Hg] Yelena MICHELLE [facility] 07-24-2022 08:28-0500 Body temperature 98.2 [degF] Cristiane Chang DO Work Phone: [facility] 07-24-2022 08:28-0500 Diastolic blood pressure 86 mm[Hg] Cristiane Chang DO Work Phone: [facility] 07-24-2022 08:28-0500 Heart rate 87 /min Cristiane Chang DO Work Phone: [facility] 07-24-2022 08:28-0500 Respiratory rate 26 /min Cristiane Chang DO Work Phone: [facility] 07-24-2022 08:28-0500 SaO2% (BldA) [Mass fraction] 97 % Cristiane Chang DO Work Phone: [facility] [employer] 07-24-2022 08:28-0500 Systolic blood pressure 156 mm[Hg] Cristiane Chang DO Work Phone: [facility] [employer] 07-23-2022 09:59-0500 Body weight 85.73 kg Cristiane Chang DO Work Phone: [facility] 06-23-2022 09:07-0500 Blood Pressure Location Tammy Cantu [facility] 06-23-2022 09:07-0500 Body temperature 97.7 [degF] Tammy Cantu [facility] 06-23-2022 09:07-0500 Diastolic blood pressure 83 mm[Hg] Tammy Cantu [facility] 06-23-2022 09:07-0500 Heart rate 94 /min Tammy Cantu [facility] 06-23-2022 09:07-0500 Systolic blood pressure 136 mm[Hg] Tammy Cantu [facility] 06-10-2022 10:30-0500 Body height 166.37 cm Nazia Haney Other [employer] Other 06-10-2022 10:30-0500 Body mass index (BMI) [Ratio] 30.97 kg/m2 Nazia Haney Other [employer] Other 06-10-2022 10:30-0500 Body temperature 97.9 [degF] Nazia Haney Other [employer] Other 06-10-2022 10:30-0500 Body weight 85.73 kg Nazia Haney Other [employer] Other 06-10-2022 10:30-0500 Respiratory rate 18 /min Nazia Haney Other [employer] Other 06-10-2022 10:30-0500 SaO2% (BldA) [Mass fraction] 94 % Nazia Haney Other [employer] Other 04-17-2022 10:10-0400 Diastolic blood pressure 92 mm[Hg] Jeffrey Zumbar [facility] 04-17-2022 10:10-0400 Heart rate 70 /min Jeffrey Zumbar [facility] 04-17-2022 10:10-0400 Mean blood pressure 112 mm[Hg] Jeffrey Zumbar [facility] 04-17-2022 10:10-0400 Respiratory rate 14 /min Jeffrey Zumbar [facility] 04-17-2022 10:10-0400 Systolic blood pressure 152 mm[Hg] Jeffrey Zumbar [facility] 03-26-2022 12:17-0400 Diastolic blood pressure 82 mm[Hg] Yelena MICHELLE [facility] 03-26-2022 12:17-0400 Mean blood pressure 103 mm[Hg] Yelena MICHELLE [facility] 03-26-2022 12:17-0400 Systolic blood pressure 144 mm[Hg] Yelena MICHELLE [facility] 03-26-2022 12:03-0400 Blood Pressure Location Yelena MICHELLE [facility] 03-26-2022 12:03-0400 Body temperature 97.88 [degF] Yelena MICHELLE [facility] 03-26-2022 12:03-0400 Diastolic blood pressure 82 mm[Hg] Yelena MICHELLE [facility] 03-26-2022 12:03-0400 Heart rate 83 /min Yelena MICHELLE [facility] 03-26-2022 12:03-0400 SaO2% (BldA) [Mass fraction] 96 % Yelena MICHELLE [facility] 03-26-2022 12:03-0400 Systolic blood pressure 146 mm[Hg] Yelena MICHELLE [facility] 03-19-2022 14:23-0400 Diastolic blood pressure 61 mm[Hg] Jeffrey Zumbar [facility] 03-19-2022 14:23-0400 Heart rate 79 /min Jeffrey Zumbar [facility] 03-19-2022 14:23-0400 Mean blood pressure 76 mm[Hg] Jeffrey Zumbar [facility] 03-19-2022 14:23-0400 SaO2% (BldA) [Mass fraction] 96 % Jeffrey Zumbar [facility] 03-19-2022 14:23-0400 Systolic blood pressure 108 mm[Hg] Jeffrey Zumbar [facility] 03-19-2022 14:23-0400 Respiratory rate 16 /min Jeffrey Zumbar [facility] 03-19-2022 14:15-0400 Diastolic blood pressure 110 mm[Hg] Jeffrey Zumbar [facility] 03-19-2022 14:15-0400 Heart rate 83 /min Jeffrey Zumbar [facility] 03-19-2022 14:15-0400 Respiratory rate 14 /min Jeffrey Zumbar [facility] 03-19-2022 14:15-0400 SaO2% (BldA) [Mass fraction] 96 % Jeffrey Zumbar [facility] 03-19-2022 14:15-0400 Systolic blood pressure 192 mm[Hg] Jeffrey Zumbar [facility] 03-19-2022 13:44-0400 Body temperature 98.06 [degF] Jeffrey Zumbar [facility] 03-19-2022 13:44-0400 Diastolic blood pressure 92 mm[Hg] Jeffrey Zumbar [facility] 03-19-2022 13:44-0400 Heart rate 80 /min Jeffrey Zumbar [facility] 03-19-2022 13:44-0400 Mean blood pressure 112 mm[Hg] Jeffrey Zumbar [facility] 03-19-2022 13:44-0400 Respiratory rate 12 /min Jeffrey Zumbar [facility] 03-19-2022 13:44-0400 SaO2% (BldA) [Mass fraction] 95 % Jeffrey Zumbar [facility] 03-19-2022 13:44-0400 Systolic blood pressure 154 mm[Hg] Jeffrey Zumbar [facility] 02-06-2022 11:20-0400 Diastolic blood pressure 86 mm[Hg] Jeffrey Shawumbar [facility] 02-06-2022 11:20-0400 Heart rate 69 /min Jeffrey Gongoraar [facility] 02-06-2022 11:20-0400 Mean blood pressure 108 mm[Hg] Jeffrey Gongoraar [facility] 02-06-2022 11:20-0400 Respiratory rate 16 /min Jeffrey Chacon [facility] 02-06-2022 11:20-0400 Systolic blood pressure 153 mm[Hg] Jeffrey Gongoraar [facility] 01-21-2022 10:48-0400 Blood Pressure Location Yelena MICHELLE [facility] 01-21-2022 10:48-0400 Body temperature 97.88 [degF] Yelena MICHELLE [facility] 01-21-2022 10:48-0400 Diastolic blood pressure 78 mm[Hg] Yelena MICHELLE [facility] 01-21-2022 10:48-0400 Heart rate 75 /min Yelena MICHELLE [facility] 01-21-2022 10:48-0400 SaO2% (BldA) [Mass fraction] 95 % Yelena MICHELLE [facility] 01-21-2022 10:48-0400 Systolic blood pressure 132 mm[Hg] Yelena MICHELLE [facility] 01-17-2022 11:18-0400 Blood Pressure Location Yelena MICHELLE [facility] 01-17-2022 11:18-0400 Body temperature 97.7 [degF] Yelena MICHELLE [facility] 01-17-2022 11:18-0400 Diastolic blood pressure 74 mm[Hg] Yelena MICHELLE [facility] 01-17-2022 11:18-0400 Heart rate 78 /min Yelena MICHELLE [facility] 01-17-2022 11:18-0400 SaO2% (BldA) [Mass fraction] 96 % Yelena MICHELLE [facility] 01-17-2022 11:18-0400 Systolic blood pressure 134 mm[Hg] Yelena MICHELLE [facility] 12-12-2021 10:34-0400 Blood Pressure Location Yelena MICHELLE [facility] 12-12-2021 10:34-0400 Body temperature 97.7 [degF] Yelena MICHELLE [facility] 12-12-2021 10:34-0400 Diastolic blood pressure 80 mm[Hg] Yelena MICHELLE [facility] 12-12-2021 10:34-0400 Heart rate 89 /min Yelena MICHELLE [facility] 12-12-2021 10:34-0400 SaO2% (BldA) [Mass fraction] 97 % Yelena MICHELLE [facility] 12-12-2021 10:34-0400 Systolic blood pressure 130 mm[Hg] Yelena MICHELLE [facility] 12-05-2021 11:28-0400 Diastolic blood pressure 84 mm[Hg] Jeffrey Zumbar [facility] 12-05-2021 11:28-0400 Heart rate 78 /min Jeffrey Zumbar [facility] 12-05-2021 11:28-0400 Mean blood pressure 100 mm[Hg] Jeffrey Zumbar [facility] 12-05-2021 11:28-0400 Respiratory rate 20 /min Jeffrey Zumbar [facility] 12-05-2021 11:28-0400 Systolic blood pressure 133 mm[Hg] Jeffrey Zumbar [facility] 11-24-2021 08:48-0400 Body temperature 97.88 [degF] Cale Hoover [facility] 11-24-2021 08:48-0400 Diastolic blood pressure 82 mm[Hg] Cale Hoover [facility] 11-24-2021 08:48-0400 Heart rate 87 /min Cale Hoover [facility] 11-24-2021 08:48-0400 Respiratory rate 20 /min Cale Hoover [facility] 11-24-2021 08:48-0400 SaO2% (BldA) [Mass fraction] 97 % Cale Hoover [facility] 11-24-2021 08:48-0400 Systolic blood pressure 165 mm[Hg] Cale Hoover [facility] 11-13-2021 12:19-0400 Diastolic blood pressure 85 mm[Hg] Jeffrey Zumbar [facility] 11-13-2021 12:19-0400 Heart rate 70 /min Jeffery Zumbar [facility] 11-13-2021 12:19-0400 Mean blood pressure 112 mm[Hg] Jeffrey Zumbar [facility] 11-13-2021 12:19-0400 SaO2% (BldA) [Mass fraction] 97 % Jeffrey Zumbar [facility] 11-13-2021 12:19-0400 Systolic blood pressure 168 mm[Hg] Jeffrey Zumbar [facility] 11-13-2021 12:19-0400 Diastolic blood pressure 85 mm[Hg] Jeffrey Zumbar [facility] 11-13-2021 12:19-0400 Systolic blood pressure 168 mm[Hg] Jeffrey Zumbar [facility] 11-13-2021 12:17-0400 Diastolic blood pressure 102 mm[Hg] Jeffrey Zumbar [facility] 11-13-2021 12:17-0400 Heart rate 69 /min Jeffrey Zumbar [facility] 11-13-2021 12:17-0400 Mean blood pressure 123 mm[Hg] Jeffrey Zumbar [facility] 11-13-2021 12:17-0400 Systolic blood pressure 167 mm[Hg] Jeffrey Zumbar [facility] 11-13-2021 12:04-0400 Heart rate 73 /min Jeffrey Zumbar [facility] 11-13-2021 12:04-0400 Respiratory rate 16 /min Jeffrey Zumbar [facility] 11-13-2021 12:04-0400 SaO2% (BldA) [Mass fraction] 99 % Jeffrey Zumbar [facility] 11-13-2021 11:03-0400 Body temperature 97.88 [degF] Jeffrey Zumbar [facility] 11-13-2021 11:03-0400 Respiratory rate 16 /min Jeffrey Zumbar [facility] 11-13-2021 11:03-0400 SaO2% (BldA) [Mass fraction] 96 % Jeffrey Zumbar [facility] 10-30-2021 12:32-0400 Diastolic blood pressure 67 mm[Hg] Jeffrey Zumbar [facility] 10-30-2021 12:32-0400 Heart rate 60 /min Jeffrey Zumbar [facility] 10-30-2021 12:32-0400 Mean blood pressure 108 mm[Hg] Jeffrey Zumbar [facility] 10-30-2021 12:32-0400 SaO2% (BldA) [Mass fraction] 97 % Jeffrey Zumbar [facility] 10-30-2021 12:32-0400 Systolic blood pressure 192 mm[Hg] Jeffrey Zumbar [facility] 10-30-2021 12:12-0400 Diastolic blood pressure 89 mm[Hg] Jeffrey Zumbar [facility] 10-30-2021 12:12-0400 Heart rate 84 /min Jeffrey Zumbar [facility] 10-30-2021 12:12-0400 Respiratory rate 16 /min Jeffrey Zumbar [facility] 10-30-2021 12:12-0400 SaO2% (BldA) [Mass fraction] 95 % Jeffrey Zumbar [facility] 10-30-2021 12:12-0400 Systolic blood pressure 133 mm[Hg] Jeffrey Zumbar [facility] 10-30-2021 11:29-0400 Body temperature 97.7 [degF] Jeffrey Zumbar [facility] 10-30-2021 11:29-0400 Diastolic blood pressure 84 mm[Hg] Jeffrey Zumbar [facility] 10-30-2021 11:29-0400 Heart rate 78 /min Jeffrey Zumbar [facility] 10-30-2021 11:29-0400 Mean blood pressure 113 mm[Hg] Jeffrey Zumbar [facility] 10-30-2021 11:29-0400 Respiratory rate 16 /min Jeffrey Zumbar [facility] 10-30-2021 11:29-0400 SaO2% (BldA) [Mass fraction] 94 % Jeffrey Zumbar [facility] 10-30-2021 11:29-0400 Systolic blood pressure 170 mm[Hg] Jeffrey Zumbar [facility] 09-03-2021 16:20-0500 Body height 166.37 cm Andi Asher Other [employer] Other 09-03-2021 16:20-0500 Body mass index (BMI) [Ratio] 31.3 kg/m2 Andi Asher Other [employer] Other 09-03-2021 16:20-0500 Body weight 86.64 kg Andi Asher Other [employer] Other 07-09-2021 11:00-0500 Body height 166.37 cm Jhon Cartwright Other [employer] Other 07-09-2021 11:00-0500 Body mass index (BMI) [Ratio] 31.3 kg/m2 Jhon Chay Other [employer] Other 07-09-2021 11:00-0500 Body weight 86.64 kg Jhon Cartwright Other [employer] Other Encounters Encounter Date Encounter Type Care Provider Facility Start: 04-07-2025 ambulatory Yelena Moeller y:[facility] Start: 03-01-2025 ambulatory Yelena MICHELLE Facility: [facility] Start: 02-21-2025 ambulatory CORAZON Zafar ty:BOBBY Pickering Start: 02-13-2025 End: 02-13-2025 ambulatory Yelena Michelle MD Work Phone: [facility] Work Phone: Start: 02-13-2025 End: 02-13-2025 Patient encounter procedure Rex London MD -[facility] Work Phone: Start: 02-09-2025 End: 02-09-2025 ambulatory Regina Nick Facility:[facility] Start: 01-25-2025 ambulatory Edmond Viadl Facility :[facility] Start: 01-11-2025 End: 01-11-2025 Patient encounter procedure Amberly Ortega NP -[facility] Work Phone: Start: 12-27-2024 Non-patient / Non-visit Rex valadez MD -[facility] Work Phone: Start: 12-27-2024 End: 12-27-2024 ambulatory Yelena Michelle MD Work Phone: [facility] Work Phone: Start: 12-27-2024 End: 12-27-2024 Patient encounter procedure Yelena Michelle MD Work Phone: [facility] Physician [facility] Work Phone: Start: 12-25-2024 End: 01-17-2025 ambulatory Yelena MICHELLE Facility:[facility] Start: 12-25-2024 End: 01-17-2025 Off-Site Yelena MICHELLE [facility] Start: 12-21-2024 End: 12-21-2024 ambulatory Yelena Michelle MD Work Phone: [facility] Work Phone: Start: 12-21-2024 End: 12-21-2024 Patient encounter procedure Yelena Michelle MD Work Phone: [facility] Physician [facility] Work Phone: Start: 12-12-2024 End: 12-12-2024 Patient encounter procedure Yelena Michelle MD Work Phone: [facility] Physician [facility] Work Phone: Start: 12-06-2024 Non-patient / Non-visit Yelena mistry MD Work Phone: [facility] Work Phone: Start: 12-06-2024 End: 12-06-2024 ambulatory Yelena Michelle MD Work Phone: [facility] Work Phone: Start: 12-06-2024 End: 12-06-2024 Patient encounter procedure Yelena Michelle MD Work Phone: [facility] Work Phone: Start: 11-09-2024 End: 11-09-2024 ambulatory Yelena Michelle MD Work Phone: [facility] Work Phone: Start: 11-09-2024 End: 11-09-2024 Patient encounter procedure Yelena Michelle MD Work Phone: [facility] Physician [facility] Work Phone: Start: 11-01-2024 End: 11-01-2024 ambulatory Yelena Michelle MD Work Phone: [facility] Work Phone: Start: 11-01-2024 End: 11-01-2024 Patient encounter procedure Yelena Michelle MD Work Phone: [facility] Work Phone: Start: 11-01-2024 Non-patient / Non-visit Yelena mistry MD Work Phone: [facility] Work Phone: Start: 10-26-2024 End: 10-26-2024 ambulatory Yelena MICHELLE Facility:[facility] Start: 10-25-2024 End: 11-22-2024 ambulatory Yelena MICHELLE Facility:[facility] Start: 10-21-2024 End: 10-22-2024 ambulatory Yelena Osorio Facility:[facility] Start: 10-21-2024 End: 10-22-2024 Patient encounter procedure Yelena MICHELLE [facility] Start: 10-19-2024 End: 10-19-2024 ambulatory Yelena Michelle MD Work Phone: [facility] Work Phone: Start: 10-19-2024 End: 10-19-2024 Patient encounter procedure Yelena Michelle MD Work Phone: [facility] Physician [facility] Work Phone: Start: 10-14-2024 End: 10-14-2024 ambulatory Yelena Osorio Facility:[facility] Start: 10-12-2024 Non-patient / Non-visit Yelena mistry MD Work Phone: [facility] Work Phone: Start: 10-12-2024 End: 10-12-2024 Admission to same day surgery center Yelena Michelle MD Work Phone: [facility] Work Phone: Start: 10-12-2024 End: 10-12-2024 ambulatory Yelena Michelle MD Work Phone: [facility] Work Phone: Start: 10-03-2024 End: 10-03-2024 ambulatory Yelena Michelle MD Work Phone: [facility] Work Phone: Start: 10-03-2024 End: 10-03-2024 Patient encounter procedure Yelena Michelle MD Work Phone: [facility] Physician [facility] Work Phone: Start: 09-23-2024 End: 09-23-2024 ambulatory Yelena Michelle MD Work Phone: [facility] Work Phone: Start: 09-23-2024 End: 09-23-2024 Patient encounter procedure Yelena Michelle MD Work Phone: [facility] Physician [facility] Work Phone: Start: 09-09-2024 End: 09-09-2024 ambulatory Neerajd Alia. Jacobcody Facility:[facility] Start: 09-09-2024 End: 09-09-2024 Patient encounter procedure Radha Rojo. Jacobcody [facility] Start: 09-01-2024 End: 09-01-2024 ambulatory Neerajd AliaRacheal [facility]cody [facility] Start: 09-01-2024 End: 09-01-2024 Patient encounter procedure Radha Rojo. Jt [facility] Start: 08-29-2024 End: 08-29-2024 ambulatory Mhd Yaser Al-Marrawi Facility:[facility] Start: 08-29-2024 End: 08-29-2024 Patient encounter procedure Mhd Yaser Al-Marrawi [facility] Start: 08-27-2024 End: 09-22-2024 ambulatory Yelena MICHELLE Facility:[facility] Start: 08-27-2024 End: 09-22-2024 Off-Site Yelena MICHELLE [facility] Start: 08-24-2024 End: 08-24-2024 ambulatory Mhd Yaser Al-Marrawi Facility:[facility] Start: 08-24-2024 End: 08-24-2024 Patient encounter procedure Mhd Yaser Al-Marrawi [facility] Start: 08-18-2024 End: 08-18-2024 Patient encounter procedure Yelena Michelle MD Work Phone: [facility] [address] [facility] Work Phone: Start: 08-18-2024 End: 08-18-2024 ambulatory Yelena Michelle MD Work Phone: [facility] Work Phone: Start: 08-08-2024 End: 08-08-2024 ambulatory [facility] Work Phone: Start: 08-08-2024 End: 08-08-2024 Patient encounter procedure [facility] Physician [facility] Work Phone: Start: 07-28-2024 End: 07-28-2024 ambulatory Edmond Vidal Facility:[facility] Start: 07-28-2024 End: 07-28-2024 Patient encounter procedure Edmond Vidal [facility] Start: 07-18-2024 End: 07-18-2024 ambulatory Yelena MICHELLE Facility:[facility] Start: 07-18-2024 End: 07-18-2024 Patient encounter procedure Yelena MICHELLE [facility] Start: 07-12-2024 End: 07-12-2024 Bamboo flowsheet Michael Crespo MD Work Phone: [facility] Start: 07-12-2024 End: 07-12-2024 Bamboo flowsheet Michael Crespo MD Work Phone: [facility] Start: 07-12-2024 End: 07-12-2024 Patient encounter procedure Michael Crespo MD Work Phone: [facility] Comment on above: Neoplasm of unspecif ied behavior of bone, soft tissue, and skin (Primary Dx) Start: 07-12-2024 End: 07-12-2024 ambulatory MICHAEL CRESPO Not Available Start: 06-27-2024 End: 06-27-2024 ambulatory Yelena MICHELLE Facility:[facility] Start: 06-27-2024 End: 06-27-2024 Patient encounter procedure Yelena MICHELLE [facility] Start: 06-26-2024 End: 07-14-2024 ambulatory Yelena MICHELLE Facility:[facility] Start: 06-26-2024 End: 07-14-2024 Off-Site Yelena MICHELLE [facility] Start: 06-24-2024 End: 06-24-2024 ambulatory Edmond Vidal Facility:[facility] Start: 06-24-2024 End: 06-24-2024 Patient encounter procedure Edmond Vidal [facility] Start: 06-21-2024 End: 06-21-2024 ambulatory Yelena MICHELLE Facility:[facility] Start: 06-21-2024 End: 06-21-2024 Patient encounter procedure Yelena MICHELLE [facility] Start: 06-16-2024 End: 06-16-2024 ambulatory COLE Vidal Facility:[facility] Start: 06-16-2024 End: 06-16-2024 Patient encounter procedure Edmond Vidal [facility] Start: 06-15-2024 End: 06-15-2024 ambulatory Radha Waters Facility:[facility] Start: 06-15-2024 End: 06-15-2024 Patient encounter procedure Radha Waters [facility] Start: 05-30-2024 End: 05-30-2024 Bamboo flowswesley Crespo MD Work Phone: [facility] Start: 05-30-2024 End: 05-30-2024 Bamboo flowswesley Crespo MD Work Phone: [facility] Start: 05-30-2024 End: 05-30-2024 ambulatory MICHAEL CRESPO Not Available Start: 05-30-2024 End: 05-30-2024 Office outpatient visit 10 minutes Michael Crespo MD Work Phone: [facility] Comment on above: Leg ulcer, right, li mited to breakdown of skin ([facility]) (Primary Dx) Start: 04-26-2024 End: 04-26-2024 ambulatory CORAZON MARTINEZRY Facility:[facility] Start: 04-26-2024 End: 04-26-2024 Patient encounter procedure CORAZON FRANCIS [facility] Start: 04-26-2024 End: 05-23-2024 Off-Site Yelena MICHELLE [facility] Start: 04-25-2024 End: 05-23-2024 ambulatory Yelena MICHELLE Facility:[facility] Start: 04-25-2024 End: 04-25-2024 Patient encounter procedure CORAZON Pierre FRANCIS [facility] Start: 04-11-2024 End: 04-11-2024 ambulatory Yelena Osorio Facility:[facility] Start: 04-11-2024 End: 04-11-2024 Patient encounter procedure Yelena Osorio [facility] Start: 04-05-2024 End: 04-05-2024 ambulatory Yelena MICHELLE Facility:[facility] Start: 04-05-2024 End: 04-05-2024 Patient encounter procedure Yelena MICHELLE [facility] Start: 03-29-2024 End: 03-29-2024 Bamboo flowsheet Colleen Ray [employer] Work Phone: [facility] DERM Start: 03-29-2024 End: 03-29-2024 Bamboo flowsheet Colleen A Felter FINISHER PLATE-COMPUTER INSTRUCTOR Work Phone: [facility] Start: 03-29-2024 End: 03-29-2024 Office outpatient visit 15 minutes Colleen A Felter FINISHER PLATE-COMPUTER INSTRUCTOR Work Phone: [facility] Comment on above: Impetigo (Primary Dx ); Stasis dermatitis of both legs; Erythema intertrigo Start: 03-29-2024 End: 03-29-2024 ambulatory COLLEEN A FELTER Not Available Start: 03-15-2024 End: 03-15-2024 Bamboo flowsheet Colleen A Felter FINISHER PLATE-COMPUTER INSTRUCTOR Work Phone: [facility] Start: 03-15-2024 End: 03-18-2024 External Result Encounter Colleen A Felter FINISHER PLATE-COMPUTER INSTRUCTOR Work Phone: [facility] External Department Unsolicited Start: 03-15-2024 End: 03-18-2024 External Result Encounter Colleen A Felter FINISHER PLATE-COMPUTER INSTRUCTOR Work Phone: [facility] External Department Unsolicited Start: 03-15-2024 End: 03-15-2024 ambulatory COLLEEN A FELTER Not Available Start: 03-15-2024 End: 03-15-2024 Office outpatient new 45 minutes Colleen A Felter FINISHER PLATE-COMPUTER INSTRUCTOR Work Phone: [facility] Comment on above: Impetigo Start: 02-29-2024 End: 02-29-2024 ambulatory Mhd Ying Nick Facility:[facility] [place] Start: 02-29-2024 End: 02-29-2024 Patient encounter procedure Arelid Ying Nick [facility] Start: 02-29-2024 End: 02-29-2024 ambulatory Yelena MICHELLE Facility:[facility] Start: 02-29-2024 End: 02-29-2024 Patient encounter procedure Yelena MICHELLE [facility] Start: 02-25-2024 End: 02-25-2024 ambulatory Mhd Yaser Al-Marrawi Facility:[facility] [facility] Start: 02-25-2024 End: 03-22-2024 ambulatory Yelena MICHELLE Facility:[facility] Start: 02-25-2024 End: 03-22-2024 Off-Site Yelena MICHELLE [facility] Start: 02-17-2024 End: 02-17-2024 ambulatory Mhd Yaser Al-Marrawi Facility:[facility] [place] Start: 02-17-2024 End: 02-17-2024 Patient encounter procedure Mhd Yaser Al-Marrawi [facility] Start: 01-25-2024 End: 02-16-2024 ambulatory Yelena MICHELLE Facility:[facility] Start: 01-25-2024 End: 02-16-2024 Off-Site Yelena MICHELLE [facility] Start: 01-14-2024 End: 01-14-2024 Patient encounter procedure Yelena MICHELLE [facility] Start: 01-14-2024 End: 01-14-2024 Well adult monitoring check done Yelena MICHELLE [facility] Start: 01-11-2024 End: 01-11-2024 Patient encounter procedure Yelena Osorio [facility] Start: 12-26-2023 End: 01-18-2024 Off-Site Yelena MICHELLE [facility] Start: 12-16-2023 End: 12-16-2023 Patient encounter procedure Jan Perera [facility] Start: 12-14-2023 End: 12-14-2023 Patient encounter procedure Tammy Cantu [facility] Start: 12-03-2023 End: 12-04-2023 ambulatory ORIANA MORRISON Not Available Start: 11-25-2023 End: 12-25-2023 Off-Site Yelena MICHELLE [facility] Start: 11-10-2023 End: 11-10-2023 Patient encounter procedure Jan Perera [facility] Start: 11-04-2023 End: 02-25-2024 Coordination of care plan Yelena MICHELLE [facility] Start: 10-22-2023 End: 10-22-2023 Off-Site Yelena MICHELLE [facility] Start: 10-16-2023 End: 10-16-2023 Patient encounter procedure Jan Perera [facility] Start: 10-12-2023 End: 10-12-2023 Patient encounter procedure Yelena MICHELLE [facility] Start: 10-09-2023 End: 10-09-2023 Patient encounter procedure Yelena Osorio [facility] Start: 09-30-2023 End: 10-03-2023 Evaluation and management of inpatient Chalo RODRIGUEZLIN [facility] Start: 09-17-2023 End: 09-17-2023 Patient encounter procedure Yelena MICHELLE [facility] Start: 09-16-2023 End: 09-16-2023 Emergency department patient visit Cale Hoover [facility] Start: 09-15-2023 End: 09-15-2023 Patient encounter procedure Tammy Cantu [facility] Start: 08-27-2023 End: 09-22-2023 Off-Site Yelena MICHELLE [facility] Start: 08-03-2023 End: 08-03-2023 Patient encounter procedure Mhd Yaser Al-Maralfonso [facility] Start: 07-29-2023 End: 07-29-2023 Patient encounter procedure Mhd Yaser Al-Marrawi [facility] Start: 07-29-2023 End: 01-12-2024 Recurring Tammy Cantu [facility] Start: 07-27-2023 End: 08-21-2023 Off-Site Yelena MICHELLE [facility] Start: 07-14-2023 End: 07-14-2023 Patient encounter procedure Tammy Winstonz [facility] Start: 06-26-2023 End: 07-23-2023 Off-Site Yelena MICHELLE [facility] Start: 06-22-2023 End: 06-22-2023 Patient encounter procedure Tammy Cantu [facility] Start: 06-01-2023 End: 06-01-2023 Patient encounter procedure Yelena MICHELLE [facility] Start: 05-28-2023 End: 05-28-2023 ambulatory MD Yelena Michelle Work Phone: [facility] Work Phone: Start: 05-28-2023 End: 05-28-2023 Registered Recurring MD Yelena Michelle Work Phone: [facility] Work Phone: Start: 05-27-2023 End: 06-16-2023 Off-Site Yelena MICHELLE [facility] Start: 05-25-2023 End: 05-25-2023 Patient encounter procedure Mhd Yaser Al-Marrawi [facility] Start: 05-20-2023 End: 05-20-2023 Patient encounter procedure Mhd Yaser Al-Marrawi [facility] Start: 04-26-2023 End: 05-21-2023 Off-Site Yelena MICHELLE [facility] Start: 04-24-2023 End: 04-24-2023 Patient encounter procedure Yelena Osorio [facility] Start: 04-14-2023 End: 04-14-2023 Patient encounter procedure Tammy Cantu [facility] Start: 04-13-2023 End: 04-13-2023 ambulatory MD Yelena Michelle Work Phone: [facility] Work Phone: Start: 04-13-2023 End: 04-13-2023 Patient encounter procedure MD Yelena Michelle Work Phone: [facility] [place] Work Phone: Start: 04-10-2023 End: 04-10-2023 Patient encounter procedure Yelena Osorio [facility] Start: 03-27-2023 End: 04-20-2023 Off-Site Yelena MICHELLE [facility] Start: 03-13-2023 End: 03-13-2023 Patient encounter procedure Yelena Osorio [facility] Start: 03-09-2023 End: 03-09-2023 Patient encounter procedure Yelena MICHELLE [facility] Start: 03-05-2023 End: 03-05-2023 Patient encounter procedure Yelena Osorio [facility] Start: 03-03-2023 End: 03-03-2023 Patient encounter procedure Mhd Ying Nick [facility] Start: 02-20-2023 End: 02-20-2023 Patient encounter procedure Yelena MICHELLE [facility] Start: 02-19-2023 End: 02-19-2023 Patient encounter procedure Yelena MICHELLE [facility] Start: 02-18-2023 End: 02-18-2023 Patient encounter procedure Yelena MICHELLE [facility] Start: 02-05-2023 End: 02-05-2023 Patient encounter procedure SELF REFERRAL [facility] Start: 01-13-2023 End: 01-13-2023 Patient encounter procedure Yelena MICHELLE [facility] Start: 01-13-2023 End: 01-13-2023 Well adult monitoring check done Yelena MICHELLE [facility] Start: 12-25-2022 End: 12-25-2022 Patient encounter procedure Tammy Cantu [facility] Start: 12-25-2022 End: 01-23-2023 Off-Site Yelena MICHELLE [facility] Start: 12-02-2022 End: 12-02-2022 Patient encounter procedure CORAZON FRANCIS [facility] Start: 11-27-2022 End: 11-27-2022 ambulatory Dallin Ben II Other [employer] Other Start: 11-27-2022 Office outpatient vi sit 15 minutes Dallin Mcclain II [facility] Start: 11-24-2022 End: 12-23-2022 Off-Site Yelena MICHELLE [facility] Start: 10-30-2022 Office outpatient ne w 45 minutes Dallin Ben II [facility] Start: 10-30-2022 End: 10-30-2022 ambulatory MD Yelena Michelle Work Phone: [facility] Work Phone: Start: 10-30-2022 End: 10-30-2022 Patient encounter procedure MD Yelena Michelle Work Phone: [facility] [place] [facility] Start: 10-27-2022 End: 10-27-2022 Patient encounter procedure Chalo KOENIG [facility] Start: 10-21-2022 End: 10-21-2022 Patient encounter procedure Yelena MICHELLE [facility] Start: 09-24-2022 End: 09-24-2022 Patient encounter procedure Tammy Cantu [facility] Start: 09-18-2022 End: 09-18-2022 Lab Drop off Yelena MICHELLE [facility] Start: 09-18-2022 End: 09-18-2022 Patient encounter procedure Yelena MICHELLE [facility] Start: 09-05-2022 End: 09-05-2022 ambulatory YELENA SIERRA WAYNE [facility] Start: 08-29-2022 End: 08-30-2022 ambulatory [facility] Start: 08-29-2022 End: 08-29-2022 Subsequent hospital visit by physician [facility] Echo Room [facility] Echocardiography Comment on above: Primary hypertension ; Tachycardia, paroxysmal (HCC) Start: 07-23-2022 End: 07-24-2022 Evaluation and management of inpatient LUIS MANUEL SAM [facility] Start: 07-23-2022 End: 07-24-2022 Evaluation and management of inpatient Cristiane Chang DO Work Phone: [id number] Comment on above: Nephrolithiasis (Sonya inga Dx); Obstruction of right ureter; Primary hypertension; Tachycardia, paroxysmal (HCC) Start: 07-22-2022 End: 07-23-[address] YELENA MICHELLE Facility: Start: 07-02-2022 End: 07-02-2022 Patient encounter procedure Oriana Morrison [facility] Start: 06-23-2022 End: 06-23-2022 Patient encounter procedure Tammy Cantu [facility] Start: 06-10-2022 End: 06-10-2022 ambulatory Nazia Haney Other [employer] Other Start: 06-10-2022 Office outpatient vi sit 25 minutes Nazia Haney [facility] Start: 05-19-2022 End: 05-19-2022 Lab Drop off Yelena MICHELLE [facility] Start: 04-17-2022 End: 04-17-2022 Pain Management Jeffrey Zumbar [facility] Start: 03-26-2022 End: 03-26-2022 Lab Drop off Yelena MICHELLE [facility] Start: 03-26-2022 End: 03-26-2022 Patient encounter procedure Yelena MICHELLE [facility] Start: 03-19-2022 End: 03-19-2022 Pain Management Jeffrey Zumbar [facility] Start: 03-03-2022 End: 06-19-2022 Recurring Yelena MICHELLE [facility] Start: 02-06-2022 End: 02-19-2022 Pre-admission assessment Yelena MICHELLE [facility] Start: 02-06-2022 End: 02-06-2022 Pain Management Jeffrey Gongoraar [facility] Start: 01-21-2022 End: 01-21-2022 Patient encounter procedure Yelena MICHELLE [facility] Start: 01-21-2022 End: 01-21-2022 Well adult monitoring check done Yelena MICHELLE [facility] Start: 01-17-2022 End: 01-17-2022 Patient encounter procedure Yelena MICHELLE [facility] Start: 01-15-2022 End: 01-15-2022 Patient encounter procedure Yelena MICHELLE [facility] Start: 12-12-2021 End: 12-12-2021 Patient encounter procedure Yelena MICHELLE [facility] Start: 12-05-2021 End: 12-05-2021 Pain Management Jeffrey Valeriaumbar [facility] Start: 11-24-2021 End: 11-24-2021 Emergency department patient visit Cale Hoover [facility] Start: 11-13-2021 End: 11-13-2021 Pain Management Jeffrey Zumbar [facility] Start: 10-30-2021 End: 10-30-2021 Pain Management Jeffrey Zumbar [facility] Start: 09-03-2021 End: 09-03-2021 ambulatory Andi Asher Other [facility] [place] Other Start: 09-03-2021 Office outpatient vi sit 15 minutes Andi Asher [facility] Start: 07-09-2021 End: 07-09-2021 ambulatory Jhon Cartwright Other [facility] Other Start: 07-09-2021 Office outpatient vi sit 15 minutes Jhon Cartwright [facility] Start: 06-26-2018 Patient encounter procedure Julius Hollie Facility:[facility] Start: 06-03-2018 End: 06-25-2018 Patient encounter procedure [facility] Facility:[facility] Procedures Date Procedure Procedure Detail Performing Clinician Start: 10-12-2024 Injection of local anesthetic into sacroiliac joint Yelena Michelle MD Work Phone: Start: 08-18-2024 MR lumbar spine wo con Yelena Michelle MD Work Phone: Start: 08-18-2024 X-ray of lumbar spine, six views including bending views Yelena Michelle MD Work Phone: Start: 07-12-2024 SKIN / NAIL BIOPSY Michael Crespo MD Work Phone: Start: 03-15-2024 Cul bact xcpt urine blood/stool aerobic isol Colleen Ray FINISHER PLATE-COMPUTER INSTRUCTOR Work Phone: Start: 04-15-2023 Lumpectomy of right breast Yelena MICHELLE Start: 04-13-2023 MRI of lumbar spine with contrast MD Jairo Michelle Work Phone: Start: 10-30-2022 Pelvis X-ray MD Yelena Michelle Work Phone: Start: 10-30-2022 X-ray of both knees MD Yelena Michelle Work Phone: Start: 09-05-2022 Cystoscopic laser lithotripsy of ureteric calculus Chalo ARYA Start: 08-29-2022 Echo tthrc r-t 2d w/wom-mode compl spec&colr d Luis Manuel Sam MD Work Phone: Start: 07-24-2022 BASIC METABOLIC PANEL W/ REFLEX TO MG FOR LOW K Berlin Curran MD Work Phone: Start: 07-24-2022 Blood count complete auto&auto difrntl wbc Berlin Curran MD Work Phone: Start: 07-24-2022 IMMATURE PLATELET FRACTION Berlin mitchell MD Work Phone: Start: 07-23-2022 Ecg routine ecg w/least 12 lds w/i&r Luis Manuel Sam MD Work Phone: Start: 07-23-2022 Fluoroscopy during operation Tylor bermudez MD Work Phone: Start: 07-23-2022 Culture bacterial quanttative colony count urine Tylor Delcid MD Work Phone: Start: 07-23-2022 End: 07-23-2022 CYSTOSCOPY URETERAL STENT INSERTION Tylor Delcid MD Work Phone: Start: 07-23-2022 Ecg routine ecg w/least 12 lds w/i&r Cale Rutledge MD Work Phone: Start: 07-23-2022 Radiologic exam chest single view Taylor Woodruff DO Work Phone: Start: 07-23-2022 IMMATURE PLATELET FRACTION Andriy Herman tristin DO Work Phone: Start: 07-23-2022 End: 07-23-2022 Comprehensive metabolic panel Andriy Woodruff DO Work Phone: Start: 07-23-2022 Cystoscopic insertion of ureteric stent Chalo KOENIG Start: 03-19-2022 Injection of nerve root of lumbar spine using fluoroscopic guidance [employer] Comment on above: Right Sciatic nerve 90% relief x one thu Start: 11-13-2021 Local anesthetic nerve block in lower limb Jeffrey Pushkartar Comment on above: Bilateral Genicular nerve Block- 95% rel ief Start: 10-30-2021 Injection of nerve root of lumbar spine using fluoroscopic guidance [facility] Comment on above: bilat L5 TFESI- 80% relief for few weeks . Start: 12-26-2020 Injection of facet joint using fluoroscopic guidance [facility] Comment on above: L3-L5 80% relief Start: 11-07-2020 Esophagogastroduodenoscopy Jeffrey Wayne r Start: 07-09-2020 Arthroplasty of knee Jeffrey Neocraftsmikael Start: 03-30-2015 Colonoscopy Jeffrey Chacon Comment on above: due again 5 years. Cataract extraction and insertion of intraocular lens Yelena MICHELLE Comment on above: Right 01/07/24 History of operative procedure on knee Jhon Cartwright Other Obstruction (morphol ogic abnormality) Jeffrey Chacon Comment on above: B/l L3-5 MBB 80% relief for the first se veral hours Plan of Treatment Date Care Activity Detail Author Start: 03-01-2025 ambulatory Ambulatory Facility:[facility] Start: 10-12-2024 [facility] Start: 09-23-2024 Patient referral [facility] Work Phone: Start: 08-08-2024 Patient referral [facility] Work Phone: Start: 07-12-2024 End: 07-12-2024 Patient encounter procedure 07/12/2024 1:00 PM EST Office Visit [facility] [address] [place] [address] Michael Crespo MD [address] [place] [address] Arrived [facility] Comment on above: Arrived Start: 06-27-2024 End: 06-27-2024 Patient encounter procedure 06/27/2024 10:00 AM EST Office Visit [facility] [address] [place] [address] Michael Crespo MD [address] [place] [address] [facility] Start: 05-30-2024 End: 05-30-2024 Patient encounter procedure 05/30/2024 9:40 AM EST Office Visit [facility] [address] [place] [address] Felter, Colleen A, FINISHER PLATE-COMPUTER INSTRUCTOR [address] [place] [address] [facility] Start: 03-29-2024 End: 03-29-2024 Patient encounter procedure [facility] Comment on above: Arrived Start: 03-27-2024 Influenza vaccination Influenza Vaccine (#1) [facility] Start: 09-05-2022 End: 09-05-2022 Admission to same day surgery center 09/05/2022 Surgery IP Unit Aly Monroe Jr., MD [address] [place] [address] [id number] HOLMIUM LASER CYSTOSCOPY, LITHOTRIPSY, URETEROSCOPY, URETERAL STENT EXCHANGE [facility] Comment on above: HOLMIUM LASER CYSTOSCOPY, LITHOTRIPSY, U RETEROSCOPY, URETERAL STENT EXCHANGE Start: 09-05-2022 Subsequent hospital visit by physician 09/05/2022 Hospital Encounter IP Unit Aly Monroe Jr., MD [address] [place] [id number] [facility] Start: 09-05-2022 End: 09-05-2022 URETEROSCOPY STONE REMOVAL LASER URETEROSCOPY STONE REMOVAL LASER Right ureteral stone 09/05/2022 7:30 AM [facility] Start: 08-26-2022 Annual Wellness Visit (AWV) Annual Wellness Visit (AWV) [facility] Start: 07-31-2022 End: 07-24-2023 Basic metabolic 2000 panel - Serum or Plasma Basic Metabolic Panel Lab Routine Primary hypertension Expected: 07/31/2022 (Approximate), Expires: 07/24/[address] [facility] Work Phone: Comment on above: Expected: 07/31/2022 (Approximate), Expi res: 07/24/2023 Start: 03-27-2022 COVID-19 Vaccine (5 - Booster for Pfizer series) COVID-19 Vaccine (5 - Booster for Pfizer series) [facility] Start: 08-01-2022 Influenza vaccination Flu vaccine (#1) [facility] [employer] Start: 2001 Pneumococcal 65+ years Vaccine (1 - PCV) Pneumococcal 65+ years Vaccine (1 - PCV) [facility] [employer] Start: 12-20-1991 Screening for osteoporosis DEXA (modify frequency per FRAX score) [facility] [employer] Start: 1986 Shingles vaccine (1 of 2) Shingles vaccine (1 of 2) [facility] [employer] Start: 12-20-1955 DTaP/Tdap/Td vaccine (1 - Tdap) DTaP/Tdap/Td vaccine (1 - Tdap) [facility] [employer] Start: 1948 Depression Screen Depression Screen [facility] [employer] Start: 06-21-1937 COVID-19 Vaccine (#1) COVID-19 Vaccine (#1) [facility] [employer] Aerobic culture Aerobic culture Microbiology Timed Impetigo Release Upon Ordering for 1 Occurrences starting 03/15/2024 [employer] Work Phone: Comment on above: Release Upon Ordering for 1 Occurrences starting 03/15/2024 Aerobic culture Aerobic culture Microbiology Routine 03/15/2024 12:00 AM EDT [employer] Work Phone: Computed tomography for radiotherapy planning [facility] End: 07-23-2022 Culture, Urine [facility] [employer] Work Phone: Comment on above: One Time for 1 Occurrences starting 06/27 until 07/23/2022 Dermatopathology exam Dermatopat hology exam Pathology and Cytology Timed Neoplasm of unspecified behavior of bone, soft tissue, and skin Release Upon Ordering for 1 Occurrences starting 07/12/2024 [employer] Work Phone: Comment on above: Release Upon Ordering for 1 Occurrences starting 07/12/2024 End: 07-24-2023 ECHO 2D WO Color Doppler Complete ECHO 2D WO Color Doppler Complete Echocardiography Routine Primary hypertension Tachycardia, paroxysmal (HCC) 1 Occurrences starting 07/24/2022 until 07/24/2023 [facility]: Comment on above: 1 Occurrences starting 07/24/2022 until 07/24/2023 End: 08-29-2022 ECHO 2D WO Color Doppler Complete ECHO 2D WO Color Doppler Complete Echocardiography Routine Primary hypertension Tachycardia, paroxysmal (HCC) 1 Occurrences starting 08/29/2022 until 08/29/2022 [employer] Work Phone: Comment on above: 1 Occurrences starting 08/29/2022 until 08/29/2022 EKG 12 Lead EKG 12 Lead ECG STAT 07/23/2022 12:57 PM EST [employer] Work Phone: EKG 12 Lead EKG 12 Lead ECG Routine 07/23/2022 6:23 PM EST [employer] Work Phone: End: 07-24-2022 Home O2 eval (desaturation screen) Home O2 eval (desaturation screen) Respiratory Care Routine One Time for 1 Occurrences starting 07/24/2022 until 07/24/2022 [employer] Phone: Comment on above: One Time for 1 Occurrences starting 06/27 until 07/24/2022 MR Lumbar spine WO contrast [facility] Oxygen therapy [[facility] Data Set] Initiate Oxygen Therapy Protocol Respiratory Care Routine Daily until discontinued starting 07/23/2022 [employer] Work Phone: Comment on above: Daily until discontinued starting 2021 Patient Education [facility] Work Phone: Patient referral [facility] Work Phone: Spirometry panel Incentive carmel metry RT Respiratory Care Routine Every 2hr while awake until discontinued starting 07/24/2022 [employer] Work Phone: Comment on above: Every 2hr while awake until discontinued starting 07/24/2022 End: 07-23-2022 Urinalysis with Microscopic Urinalysis with Microscopic Lab STAT One Time for 1 Occurrences starting 07/23/2022 until 07/23/2022 [employer] Phone: Comment on above: One Time for 1 Occurrences starting 06/27 until 07/23/2022 XR Lumbar spine Views [facility] Immunizations Immunization Date Immunization Notes Care Provider Fa cility 04-05-2024 influenza, high dose seasonal, preservative-free; Translations: [Fluzone High Dose Vaccine] Yelena MICHELLE [facility] 05-19-2022 influenza, high dose seasonal, preservative-free Yelena MICHELLE [facility] 05-19-2022 influenza virus vaccine, unspecified formulation Colleen Ray FINISHER PLATE-COMPUTER INSTRUCTOR Work Phone: [facility] 01-30-2022 COVID-19 Comirnaty (Pfizer) Tri-Sucrose 12+ Yelena Michelle MD Work Phone: [facility] 01-30-2022 SARS-CoV-2 mRNA ([id number] crose) vaccine Jeffrey Zumbar [facility] 05-07-2021 influenza, high dose seasonal, preservative-free Jeffrey Zumbar [facility] 04-23-2021 SARS-CoV-2 (COVID-19) mRNA BNT-162b2 vax Jeffrey Zumbar [facility] 09-16-2020 SARS-CoV-2 (COVID-19) mRNA BNT-162b2 vax Jeffrey Zumbar [facility] Comment on above: Result Comment: dupl icate 09-16-2020 SARS-CoV-2 (COVID-19) mRNA-1273 vaccine Jeffrey Zumbar [facility] Comment on above: Result Comment: [facility] 08-26-2020 COVID-19 mRNA, Comirnaty (Pfizer) Yelena Michelle MD Work Phone: [facility] 08-26-2020 SARS-CoV-2 (COVID-19) mRNA-1273 vaccine Jeffrey Zumbar [facility] Comment on above: Result Comment: [facility] [place] 05-27-2020 influenza virus vaccine, unspecified formulation Yelena MICHELLE [facility] 05-21-2020 influenza, high dose seasonal, preservative-free [facility] [facility] 05-[facility]-2019 influenza, high dose seasonal, preservative-free Jeffrey Zumbar [facility] 02-04-2019 pneumococcal polysaccharide vaccine, 23 valent Jeffrey Zumbar [facility] Comment on above: Result Comment: Dupl icate 07-27-2018 pneumococcal polysaccharide vaccine, 23 valent Jeffrey Zumbar [facility] 05-17-2018 influenza virus vaccine, unspecified formulation Jeffrey Zumbar [facility] 05-17-2018 influenza, injectable, quadrivalent, preservative free Yelena Michelle MD Work Phone: [facility] 02-03-2018 pneumococcal conjugate vaccine, 13 valent Jeffrey Zumbar [facility] 05-27-2017 influenza virus vaccine, unspecified formulation Yelena MICHELLE [facility] 05-27-2017 influenza, seasonal, injectable, preservative free Jhon Cartwright Other [employer] Other 05-01-2017 influenza virus vaccine, unspecified formulation Yelena MICHELLE [facility] 05-01-2017 influenza, high dose seasonal, preservative-free Yelena Michelle MD Work Phone: [facility] NEGATED: Highlighted row has not occurred! 4 influenza virus vaccine, unspecified formulation Tammy Cantu [facility] NEGATED: Highlighted row has not occurred! 3 influenza virus vaccine, unspecified formulation Tammy Cantu [facility] NEGATED: Highlighted row has not occurred! 3 influenza virus vaccine, unspecified formulation Yelena Osorio [facility] NEGATED: Highlighted row has not occurred! 7 pneumococcal polysaccharide vaccine, 23 valent Patient Objection Jhon Cartwright Other [facility] Payers Date Payer Category Payer Self-pay [id number] 2024 Medicare [id number] 2023 Medicare [id number] 2022 Private Health Insurance 1.2 .840.602720.1.13.693.2.7.9 .[id number] 2022 Private Health Insurance CLI [id number] 1.2.840.440623.1.13.239.2.7.3 .[id number] 2017 Private Health Insurance [facility] [id number] 2004 Medicare [id number]. 1.13.693.2.7.9 .[id number] 1959 Medicare [id number] 2.16.840.1.032043.19 1936 Unknown [id number] 2.16.840.1.855784.3.579.2.593 1936 Unknown [id number] 2.16.840.1.605661.3.579.2.173 1936 Unknown [id number] 2.16.840.1.359973.3.579.2.175 1936 Unknown [id number] 2.16.840.1.713835.3.579.2.175 1936 Unknown [id number] 2.16.840.1.005738.3.579.2.125 9 1936 Unknown [id number] 2.16.840.1.995020.3.579.2.125 9 1936 Unknown [id number] 2.16.840.1.854987.3.579.2.125 9 1936 Unknown [id number] 2.16.840.1.886789.3.579.2.125 9 1936 Unknown [id number] 2.16.840.1.325165.3.579.2.125 9 1936 Unknown [id number] 2.16.840.1.700961.3.579.2. 1936 Unknown [id number] 2.16.840.1.395080.3.579.2. 1936 Unknown [id number] 2.16.840.1.548356.3.579.2. 1936 Unknown [id number] 2.16.840.1.134115.3.579.2. 1936 Unknown [id number] 2.16.840.1.314329.3.579.2. 1936 Unknown [id number] 2.16.840.1.437743.3.579.2. 1936 Unknown [id number] 2.16.840.1.115576.3.579.2. 1936 Unknown [id number] 2.16.840.1.135148.3.579.2. 1936 Unknown [id number] 2.16.840.1.403884.3.579.2. 1936 Unknown [id number] 2.16.840.1.706055.3.579.2. 1936 Unknown [id number] 2.16.840.1.411328.3.579.2 1936 Unknown [id number] 2.16.840.1.831474.3.579.2 1936 Unknown [id number] 2.16.840.1.720217.3.579.2 1936 Unknown [id number] 2.16.840.1.725635.3.579.2 1936 Unknown [id number] 2.16.840.1.464951.3.579.2 1936 Unknown [id number] 2.16.840.1.600913.3.579.2 1936 Unknown [id number] 2.16.840.1.941470.3.579.2 1936 Unknown [id number] 2.16.840.1.335508.3.579.2 1936 Unknown [id number] 2.16.840.1.608245.3.579.2 1936 Unknown [id number] 2.16.840.1.780260.3.579.2 1936 Unknown [id number] 2.16.840.1.689944.3.579.2 1936 Unknown [id number] 2.16.840.1.476155.3.579.2 1936 Unknown [id number] 2.16.840.1.610321.3.579.2 1936 Unknown [id number] 2.16.840.1.056627.3.579.2 1936 Unknown [id number] 2.16.840.1.585095.3.579.2. 1936 Unknown [id number] 2.16.840.1.422666.3.579.2 1936 Unknown [id number] 2.16.840.1.267998.3.579.2 1936 Unknown [id number] 2.16.840.1.709551.3.579.2 1936 Unknown [id number] 2.16.840.1.237323.3.579.2 1936 Unknown [id number] 2.16.840.1.067731.3.579.2 1936 Unknown [id number] 2.16.840.1.543879.3.579.2 1936 Unknown [id number] 2.16.840.1.399196.3.579. 1936 Unknown [id number] 2.16.840.1.190565.3.579.2 1936 Unknown [id number] 2.16.840.1.752311.3.579.2 1936 Unknown [id number] 2.16.840.1.557901.3.579.2 1936 Unknown [id number] 2.16.840.1.451651.3.579.2 1936 Unknown [id number] 2.16.840.1.776427.3.579.2 1936 Unknown [id number] 2.16.840.1.579602.3.579.2 1936 Unknown [id number] 2.16.840.1.847377.3.579.2 1936 Unknown [id number] 2.16.840.1.739248.3.579.2 Medicare [id number] Private Health Insurance [employer] [facility] M [id number] Unknown [id number] 2.16.840.1.506534.3.579.2.243 Unknown [id number] 2.16.840.1.019203.3.579.2.243 Unknown HCAP/HFA/FAP Active [id number] Unknown [id number] 2.16.840.1.266862.3.579.2.531 Unknown [id number] 2.16.840.1.282411.3.579.2.531 Social History Date Type Detail Facility Start: 09-19-2021 End: 02-13-2025 Tobacco smoking status Never smoked tobacco (finding) [employer] Other Comment on above: denies denies use Tobacco smoking status Never [facility] Comment on above: denies denies use Start: 12-17-2022 End: 02-11-2023 Sex Assigned At Female [employer] Other Start: 07-23-2022 End: 12-17-2022 Tobacco use and exposure Smokeless tobacco non-user [employer] Phone: Start: 07-24-2022 End: 08-08-2022 Alcohol intake Current drinker of alcohol (finding) [employer] Phone: Start: 07-24-2022 End: 02-11-2023 Alcohol intake [employer] Phone: Start: 07-23-2022 Alcohol Comment Drinks once i n a while [employer] Phone: Start: 1935 Sex Assigned At Not on file [employer] Phone: Start: 07-13-2022 End: 07-23-2022 Exposure to SARS-CoV-2 (event) Not sure [employer] Work Phone: Start: 1935 Sex Assigned At Female F [facility] Start: 03-15-2024 End: 03-29-2024 Alcoholic beverage intake Lifetime non-drinker (finding) [facility] How often to you hav e a drink containing alcohol? Monthly or less [facility] How many standard drinks containing alcohol do you have on a typical day? 1 or 2 [facility] How often do you hav e 6 or more drinks on 1 occasion? Less than monthly [facility] Start: 02-11-2023 Alcohol Comment caffeine intak e: 2-3 cups per day [facility] Start: 10-15-2018 End: 08-08-2024 Sex Female (finding) [facility] Sexual Orientation [facility] NEGATED: Highlighted rowStart: NINF History of tobacco use Passive smoker [facility] [employer] Work Phone: Medical Equipment Procedure Code Equipment Code Equipment Origin al Text Equipment Identifier Dates Arthroplasty, knee, bilateral, total Orthopaedic cement, non-medicated [id number] FDA Start: 07-09-2020 Arthroplasty, knee, bilateral, total Uncoated knee tibia prosthesis, metallic ()[id number] FDA Start: 07-09-2020 Arthroplasty, knee, bilateral, total Uncoated knee femur prosthesis, metallic ()[id number] FDA Start: 07-09-2020 Arthroplasty, knee, bilateral, total Uncoated knee femur prosthesis, metallic ()[id number] FDA Start: 07-09-2020 Arthroplasty, knee, bilateral, total Tibial insert ()[id number] FDA Start: 07-09-2020 Arthroplasty, knee, bilateral, total Tibial insert ()[id number] FDA Start: 07-09-2020 Arthroplasty, knee, bilateral, total Uncoated knee tibia prosthesis, metallic ()[id number] FDA Start: 07-09-2020 Arthroplasty, knee, bilateral, total Polyethylene patella prosthesis ()[id number] FDA Start: 07-09-2020 Arthroplasty, knee, bilateral, total Polyethylene patella prosthesis ()[id number] FDA Start: 07-09-2020 Stent Uret L26cm Od4.8fr Hydr+ Dbl Pgtl Flx Tapr Tip Thrd - [id number] Start: 07-23-2022 Goals Date Patient Goal Desired Activity /State 12-18-2022 Functional Status Date Assessment Result Facility 09-09-2024 Functional Status N/A [facility] 07-28-2024 Functional Status N/A [facility] 07-18-2024 Functional Status N/A [facility] 06-27-2024 Functional Status N/A [facility] 06-16-2024 Functional Status N/A [facility] 06-15-2024 Functional Status N/A [facility] 04-26-2024 Functional Status N/A [facility] 04-05-2024 Functional Status N/A [facility] 02-29-2024 Functional Status N/A [facility] 01-14-2024 Functional Status N/A [facility] 12-16-2023 Functional Status No [facility] 12-14-2023 Functional Status N/A [facility] 10-16-2023 Functional Status N/A [facility] 10-12-2023 Functional Status N/A [facility] 10-09-2023 Functional Status N/A [facility] 09-30-2023 Functional Status N/A [facility] 09-30-2023 Functional Status [facility] 09-17-2023 Functional Status N/A [facility] 09-16-2023 Functional Status N/A [facility] 09-15-2023 Functional Status N/A [facility] 06-01-2023 Functional Status N/A [facility] 04-14-2023 Functional Status N/A [facility] 04-10-2023 Functional Status No [facility] 03-13-2023 Functional Status N/A [facility] 02-20-2023 Functional Status N/A [facility] 01-13-2023 Functional Status N/A [facility] 12-25-2022 Functional Status N/A [facility] 12-02-2022 Functional Status N/A [facility] 10-27-2022 Functional Status N/A [facility] 10-21-2022 Functional Status N/A [facility] 09-24-2022 Functional Status N/A [facility] 09-18-2022 Functional Status N/A [facility] 06-23-2022 Functional Status N/A [facility] 04-17-2022 Functional Status N/A [facility] 03-26-2022 Functional Status N/A [facility] 03-19-2022 Functional Status N/A [facility] 02-06-2022 Functional Status N/A [facility] 01-21-2022 Functional Status N/A [facility] 01-17-2022 Functional Status N/A [facility] Clinical Notes 06-26-2020 to 12-12-2024 Note Date & Type Note Facility 12-12-2024 Evaluation note Diagnosis Onset Date Resolution Lumbosacral spondylosis acute M ay 2024 2:27pm Other chronic pain acute December 122024 2:27pm Sacroiliitis acute December 12 2:27pm Lumbosacral spondylosis acute M ay 2024 10:18am Lumbosacral spondylosis acute J une 2024 10:58am Other chronic pain acute December 252024 10:58am Sacroiliitis acute January 11 10:58am Lumbar radiculopathy acute February 13, 2025 11:01am Lumbosacral spondylosis acute J aliza2024 11:01am Neurogenic claudication due to lumbar spinal stenosis acute February 13, 2025 11:01am Other chronic pain acute January 252024 11:01am Sacroiliitis acute February 13 11:01am [facility] Work Phone: 1(611) 703-711904-02-2025 NotePatient Education Cardiovascular Hypertension, Adult Hypertension is another name for high blood pressure. High blood pressure forces your heart to workharder to pump blood. This can cause problems over time. There are two numbers in a blood pressure reading. There is a top number (systolic) over a bottom number (diastolic). It is best to have a blood pressure that is below 120/80. What are the causes? The cause of this condition is not known. Some other conditions can lead to high blood pressure. What increases the risk? Some lifestyle factors can make you more likely to develop high blood pressure: ??? Smoking. ??? Not getting enough exercise or physical activity. ??? Being overweight. ??? Having too much fat, sugar, calories, or salt (sodium) in your diet. ??? Drinking too much alcohol. Other risk factors include: ??? Having any of these conditions: ? Heart disease. ? Diabetes. ? High cholesterol. ? Kidney disease. ? Obstructive sleep apnea. ??? Having a family history of high blood pressure and high cholesterol. ??? Age. The risk increases with age. ??? Stress. What are the signs or symptoms? High blood pressure may not cause symptoms. Very high blood pressure (hypertensive crisis) may cause: ??? Headache. ??? Fast or uneven heartbeats (palpitations). ??? Shortness of breath. ??? Nosebleed. ??? Vomiting or feeling like you may vomit (nauseous). ??? Changes in how you see. ??? Very bad chest pain. ??? Feeling dizzy. ??? Seizures. How is this treated? This condition is treated by making healthy lifestyle changes, such as: ? Eating healthy foods. ? Exercising more. ? Drinking less alcohol. ??? Your doctor may prescribe medicine if lifestyle changes do not help enough and if: ? Your top number is above 130. ? Your bottom number is above 80. ??? Your personal target blood pressure may vary. Follow these instructions at home: Eating and drinking ??? If told, follow the DASH eating plan. To follow this plan: ? Fill one half of your plate at each meal with fruits and vegetables. ? Fill one fourth of your plate at each meal with whole grains. Whole grains include whole-wheat pasta, brown rice, and whole-grain bread. ? Eat or drink low-fat dairy products, such as skim milk or low-fat yogurt. ? Fill one fourth of your plate at each meal with low-fat (lean) proteins. Low- fat proteins includefish, chicken without skin, eggs, beans, and tofu. ? Avoid fatty meat, cured and processed meat, or chicken with skin. ? Avoid pre-made or processed food. ??? Limit the amount of salt in your diet to less than 1,500 mg each day. ??? Do not drink alcohol if: ? Your doctor tells you not to drink. ? You are , may be , or are planning to become . ??? If you drink alcohol: ? Limit how much you have to: ? 0?1 drink a day for women. ? 0?2 drinks a day for men. ? Know how much alcohol is in your drink. In the [place] one drink equals one 12 oz bottle of beer (355 mL), one 5 oz glass of wine (148 mL), or one 1? oz glass of hard liquor (44 mL). Lifestyle ??? Work with your doctor to stay at a healthy weight or to lose weight. Ask your doctor what the best weight is for you. ??? Get at least 30 minutes of exercise that causes your heart to beat faster (aerobic exercise) most days of the week. This may include walking, swimming, or biking. ??? Get at least 30 minutes of exercise that strengthens your muscles (resistance exercise) at least 3 days a week. This may include lifting weights or doing Pilates. ??? Do not smoke or use any products that contain nicotine or tobacco. If you need help quitting, ask your doctor. ??? Check your blood pressure at home as told by your doctor. ??? Keep all follow-up visits. Medicines ??? Take wnfg-ogz-btephiv and prescription medicines only as told by your doctor. Follow directionscarefully. ??? Do not skip doses of blood pressure medicine. The medicine does not work as well if you skip doses. Skipping doses also puts you at risk for problems. ??? Ask your doctor about side effects or reactions to medicines that you should watch for. Contact a doctor if: ??? You think you are having a reaction to the medicine you are taking. ??? You have headaches that keep coming back. ??? You feel dizzy. ??? You have swelling in your ankles. ??? You have trouble with your vision. Get help right away if: ??? You get a very bad headache. ??? You start to feel mixed up (confused). ??? You feel weak or numb. ??? You feel faint. ??? You have very bad pain in your: ? Chest. ? Belly (abdomen). ??? You vomit more than once. ??? You have trouble breathing. These symptoms may be an emergency. Get help right away. Call 911. ??? Do not wait to see if the symptoms will go away. ??? Do not drive yourself to the hospital. Summary ??? Hypertension is a (more content not included)...[facility] 10-12-2024 [place] [address] Pain Management Procedure Note Signed Patient: Jerrica Rock MR#: [id number] : 1935 Acct:[id number] Age/Sex: 88 / F Adm Date: 5 Loc: Room: Type: [facility] Attending Dr: Rex London MD Copies to: MD Rex Nguyen MD~ Pain Procedure PROCEDURE PERFORMED BY: Rex London PROCEDURE DATE: 10/12/2024 PREPROCEDURE DIAGNOSIS: Bilateral sacroiliitis. Lumbosacral spondylosis. Chronic pain. POSTPROCEDURE DIAGNOSIS: Bilateral sacroiliitis. Lumbosacral spondylosis. Chronic pain. PROCEDURE: Bilateral sacroiliac joint injection under fluoroscopic guidance. COMPLICATIONS: None. ANESTHESIA: Local. CLINICAL NOTE: The patient has a history of low back pain. The patient requests the injection in an attempt to improve the pain. The risks, benefits, and alternatives of theprocedure were explained to the patient. The patient wishes to proceed. PROCEDURE NOTE: The patient was brought to the procedure room and placed in the prone position. The skin was prepped and draped with ChloraPrep and sterile towels. 6 mL of 1% lidocaine, in divided doses, were injected through a 27-gauge needle for local anesthesia. 23-gauge spinal needle was guided to the left sacroiliac joint under fluoroscopic guidance. Contrast dye was used to confirm proper needle position in the sacroiliac joint. After negative aspiration, 30 mg of triamcinolone and 2 mL of 0.25% bupivacaine were injected through the needle. The same steps were repeated to the right sacroiliac joint. The needles were removed and band-aids were applied. Patient tolerated the procedure well and wastransferred to recovery in a stable condition. PLAN: The patient was instructed to call the clinic in 1 week to inform us of any progress. The patient was encouraged to call at any time with any questions or concerns. Documented By: Rex London MD 10/12/24 1108 Signed By: 10/12/24 1227 [facility]03-10-2025 Evaluation note* Diagnosis Onset Date Resolution Status Admit Date Lumbosacral spondylosis acute M arch 2024 1:52pm Other chronic pain acute October 03, 2024 1:52pm Sacroiliitis acute October 03, 2024 1:52pm Lumbosacral spondylosis acute M arch 2024 2:38pm Other chronic pain acute October 19, 2024 2:38pm Sacroiliitis acute October 19, 2024 2:38pm Lumbosacral spondylosis acute A pril 2024 2:47pm Other chronic pain acute November 09, 2024 2:47pm Sacroiliitis acute November 09, 2024 2:47pm Lumbosacral spondylosis acute M ay 2024 2:27pm Other chronic pain acute December 122024 2:27pm Sacroiliitis acute December 12 2:27pm [facility] Work Phone: 1(385) 579-297703-10-2025 Evaluation note* Diagnosis Onset Date Resolution Status Admit Date Lumbosacral spondylosis acute M arch 2024 1:52pm Other chronic pain acute October 03, 2024 1:52pm Sacroiliitis acute October 03, 2024 1:52pm Lumbosacral spondylosis acute M arch 2024 2:38pm Other chronic pain acute October 19, 2024 2:38pm Sacroiliitis acute October 19, 2024 2:38pm Lumbosacral spondylosis acute A pril 2024 2:47pm Other chronic pain acute November 09, 2024 2:47pm Sacroiliitis acute November 09, 2024 2:47pm Lumbosacral spondylosis acute M ay 2024 2:27pm Other chronic pain acute December 122024 2:27pm Sacroiliitis acute December 12 2:27pm Lumbosacral spondylosis acute ay 2024 10:18am [facility] Work Phone: 1(935) 594-129902-28-2025 Evaluation note* Diagnosis Onset Date Resolution Status Admit Date Lumbar back pain acute September 23, 2024 9:30am Lumbosacral spondylosis acute M arch 2024 1:52pm Other chronic pain acute October 03, 2024 1:52pm Sacroiliitis acute October 03, 2024 1:52pm Lumbosacral spondylosis acute M arch 2024 2:38pm Other chronic pain acute October 19, 2024 2:38pm Sacroiliitis acute October 19, 2024 2:38pm Lumbosacral spondylosis acute A pril 2024 2:47pm Other chronic pain acute November 09, 2024 2:47pm Sacroiliitis acute November 09, 2024 2:47pm [facility] Work Phone: 1(878) 396-709702-03-2025 Hospital Discharge instructions Patient Education 08/29/2024 11:39:37 Monoclonal Gammopathy of Undetermined Significance Monoclonal Gammopathy of Undetermined Significance Monoclonal gammopathy of undetermined significance (MGUS) is a condition in which there is too muchof a protein called monoclonal protein, or M protein, in the blood. MGUS can cause you to have too many cells in your blood and not enough space for healthy cells. This condition may not have any symptoms, but it may increase your risk of developing multiple myeloma or other blood disorders in the future. What are the causes? The cause of this condition is not known. Genetics and the environment may play a role. What increases the risk? You are more likely to develop this condition if: You are . You are age 50 or older. You are male. You have an autoimmune disease. You have been exposed to radiation. You have a family history of MGUS. What are the signs or symptoms? There are usually no symptoms of this condition. In rare cases, some people may have: Numbness or tingling in the hands, lower legs, or feet. Bone problems. Frequent infections. How is this diagnosed? This condition may be diagnosed with tests that check for the M protein, such as: A blood test. A urine test. How is this treated? Treatment may involve monitoring your condition. This may include: Having regular exams. This will allow your health care provider to monitor your health. Having tests done regularly, such as: ?Blood tests to check for M protein in your body. ?Imaging tests, such as a CT scan. ?A bone marrow biopsy. This test involves taking a sample of bone marrow from your body so it can be checked under a microscope. Follow these instructions at home: Take ojxu-hky-eujiwhi and prescription medicines only as told by your health care provider. Keep all follow-up visits. Where to find more information [employer]: [email or web address].org Contact a health care provider if: You have trouble swallowing. You have pain in your back or ribs. You have numbness or tingling in your hands, lower legs, or feet. You have a fever. You are bruising easily. Get help right away if: You break a bone. You have trouble breathing. Summary Monoclonal gammopathy of undetermined significance (MGUS) is a condition in which there is too muchof a protein called monoclonal protein, or M protein, in the blood. This condition may be diagnosed with a blood test that checks for M protein. Treatment for this condition may involve having tests done regularly. Tests may include blood tests, imaging tests, and a bone marrow biopsy. This information is not intended to replace advice given to you by your health care provider. Make sure you discuss any questions you have with your health care provider. Document Revised: 08/20/2022 Document Reviewed: 08/20/2022 [place] Patient Education 2023 [employer]. Follow Up Care 02/29/2024 16:21:33 With:Sandoval CHERY, CHRISTIE Cornelius, ONC Address: When: Unknown Comments:Screening mammogram in January 2025.Labs CBCD, CMP and myeloma labs in 6 months.RTC in 6 months. [facility] 02-03-2025 NoteOncology Progress Note Chief Complaint Follow up on MGUS and lab results, no questions or concerns today. Oncological History/ROS/PE/Assessment and Plan Diagnoses 1. Right breast multifocal invasive lobular carcinoma (right breast mass at 9:00), ER 95%, WV 60-70%, Her2 was 1+ by IHC Ki 67 <1%. 2. 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 3. Osteopenia Oncological History/ROS/PE/Assessment and Plan History of Present Illness Jerrica is a 87-year-old nice lady was referred by Dr. Yelena Michelle to our oncology clinic to be evaluated for abnormal mammogram in the right side with suspicious BI-RADS 4 abnormalities or lesion at 9:00 on the right breast. She saw general surgery 03/03/23 and was scheduled for core biopsy of the right breast. She denied any previous history of breast cancer in the past however she has a historyof gastric cancer many years ago. On the other hand Dr. Michelle referred her to our hematology clinic for paraproteinemia with positive serum protein immunofixation and urine protein immunofixation both for IgG kappa. She denies any new bone pain. No prior history of MGUS or multiple myeloma. 03/17/23: She is here for 3 weeks follow up for results of the myeloma labs, skeletal bone survey and for 03/05/23 right breast core biopsy results. Skeletal bone survey was negative for lytic lesions. Myeloma labs confirmed Elevated K and L light chains with elevated K/L ration and elevated IgA level. Breastcore biopsy done on 03/05/23 revealed: Final Diagnosis RIGHT BREAST NODULE, 9 O'CLOCK, ULTRASOUND-GUIDED CORE BIOPSY: ??? INVASIVE LOBULAR CARCINOMA, GRADE 1. ??? ATYPICAL LOBULAR HYPERPLASIA. Note: Invasive carcinoma cells are negative for beta-catenin and E-cadherin, compatible with rendered diagnosis. Clinical Information Right breast nodule 9:00 Pre-Op Diagnosis: Right breast nodule 9:00 Procedure: US guided core biopsy right breast Specimen(s) Received Right breast nodule 9:00 Gross Description Received in formalin labeled with patient name, number, and right breast nodule 9 o'clock are approximately 15 light yellow almodovar pink core biopsies measuring from 0.8 cm up to 1.9 cm long and up to 0.3 cm in diameter measuring in aggregate 3.5 x 3.4 x 0.5 cm. The core biopsies are submitted in cassettes 1-4. Also received in the container are fragments of light yellow almodovar soft tissue measuring in aggregate 2.7 x 1 x 0.2 cm. These fragments are submitted in cassette #5, total of 5 cassettes. Specimen collected at 10:32 and placed in 10% neutral buffered formalin at 10:41 and fixed approximately 8 hrs. (DC) Microscopic Description Microscopic examination performed unless gross only specified. Invasive carcinoma involves most of the biopsy fragments, which measure up to 1.9 cm in length and 3.5 cm in aggregate. Histologic grade of invasive carcinoma: Tubule formation score: 3 Nuclear pleomorphism score: 1 Mitotic count score: 1 Kirby Grade: 1 , total score 5 Supplemental IHC report : Estrogen receptor: Positive ( >95 % of tumor cells, strong intensity) Progesterone receptor: Positive ( 60-70% of tumor cells, strong intensity) Ki-67 index of invasive tumor cells: <1 % HER 2 at lab shola by IHC 1+. 05/04/23: She underwent right breast lumpectomy on 04/15/23 and surgical path results revealed: Procedure: Right breast needle localized lumpectomy Post-Op Diagnosis: Invasive cancer Diagnosis Comment (Verified) A: Breast Invasive Carcinoma - Resection Specimen Procedure: Needle Guided Lumpectomy Specimen Laterality: Right Tumor Tumor Site: Not specified Histologic Type: Invasive lobular carcinoma Histologic Type Comment: Infiltrative; usual type Histologic Grade ([place] Histologic Score): Glandular (Acinar) / Tubular Differentiation: Score 2 Nuclear Pleomorphism: Score 1 Mitotic Rate: Score 1 Overall Grade: Grade 1 (scores of 3, 4 or 5) Tumor Size: 25 Millimeters (mm) Tumor Focality: Multiple foci of invasive carcinoma Number of Foci: At least 10 Sizes of Individual Foci in Millimeters (mm): 1 to 25 mm Ductal Carcinoma In Situ (DCIS): Not identified Lobular Carcinoma In Situ (LCIS): Not identified Lymphatic and / or Vascular Invasion: Not identified Dermal Lymphovascular Invasion: No skin present Microcalcifications: Present in non-neoplastic tissue Treatment Effect in the Breast: No known presurgical therapy Margins Margin Status for Invasive Carcinoma: All margins negative for invasive carcinoma Distance from Invasive Carcinoma to Closest Margin: 2 mm Closest Margin(s) to Invasive Carcinoma: Superior Margin Comment: Tumor closely approximates (1-2mm) the superior margin in the lumpectomy specimen. The tumor distribution within the specimen is multifocal and random. The distance to other margins is greater but the tumor distribution is random, with normal breast tissue between tumor foci. In theextra margin tissue( (more content not included)...[facility]01-13-2025 Evaluation note* Diagnosis Onset Date Resolution Status Admit Date Lumbar back pain acute August 08, 2024 1:55pm [facility] Work Phone: 1(702) 494-444201-13-2025 Evaluation note* Diagnosis Onset Date Resolution Status Admit Date Lumbar back pain acute August 08, 2024 1:55pm Lumbar back pain acute September 23, 2024 9:30am Lumbosacral spondylosis acute 2024 1:52pm Other chronic pain acute October 03, 2024 1:52pm Sacroiliitis acute October 03, 2024 1:52pm [facility] [place] Work Phone: 1(780) 888-958001-13-2025 Evaluation note* Diagnosis Onset Date Resolution Status Admit Date Lumbar back pain acute August 08, 2024 1:55pm Lumbar back pain acute September 23, 2024 9:30am Lumbosacral spondylosis acute M arch 2024 1:52pm Other chronic pain acute October 03, 2024 1:52pm Sacroiliitis acute October 03, 2024 1:52pm Lumbosacral spondylosis acute M arch 2024 2:38pm Other chronic pain acute October 19, 2024 2:38pm Sacroiliitis acute October 19, 2024 2:38pm [facility] Work Phone: 1(120) 598-844912-23-2024 Hospital Discharge instructions Patient Education 07/18/2024 14:22:08 Back Exercises, [id number] Back Exercises These exercises help to make your trunk and back strong. They also help to keep the lower back flexible. Doing these exercises can help to prevent or lessen pain in your lower back. If you have back pain, try to do these exercises 2 3 times each day or as told by your doctor. As you get better, do the exercises once each day. Repeat the exercises more often as told by your doctor. To stop back pain from coming back, do the exercises once each day, or as told by your doctor. Do exercises exactly as told by your doctor. Stop right away if you feel sudden pain or your pain gets worse. Exercises Single knee to chest Do these steps 3 5 times in a row for each le.Lie on your back on a firm bed or the floor with your legs stretched out. 2.Bring one knee to your chest. 3.Grab your knee or thigh with both hands and hold it in place. 4.Pull on your knee until you feel a gentle stretch in your lower back or butt. 5.Keep doing the stretch for 10 30 seconds. 6.Slowly let go of your leg and straighten it. Pelvic tilt Do these steps 5 10 times in a row: 1.Lie on your back on a firm bed or the floor with your legs stretched out. 2.Bend your knees so they point up to the ceiling. Your feet should be flat on the floor. 3.Tighten your lower belly (abdomen) muscles to press your lower back against the floor. This will make your tailbone point up to the ceiling instead of pointing down to your feet or the floor. 4.Stay in this position for 5 10 seconds while you gently tighten your muscles and breathe evenly. Cat cow Do these steps until your lower back bends more easily: 1.Get on your hands and knees on a firm bed or the floor. Keep your hands under your shoulders, andkeep your knees under your hips. You may put padding under your knees. 2.Let your head hang down toward your chest. Tighten (contract) the muscles in your belly. Point your tailbone toward the floor so your lower back becomes rounded like the back of a cat. 3.Stay in this position for 5 seconds. 4.Slowly lift your head. Let the muscles of your belly relax. Point your tailbone up toward the ceiling so your back forms a sagging arch like the back of a cow. 5.Stay in this position for 5 seconds. Press-ups Do these steps 5 10 times in a row: 1.Lie on your belly (face-down) on a firm bed or the floor. 2.Place your hands near your head, about shoulder-width apart. 3.While you keep your back relaxed and keep your hips on the floor, slowly straighten your arms to raise the top half of your body and lift your shoulders. Do not use your back muscles. You may change where you place your hands to make yourself more comfortable. 4.Stay in this position for 5 seconds. Keep your back relaxed. 5.Slowly return to lying flat on the floor. Bridges Do these steps 10 times in a row: 1.Lie on your back on a firm bed or the floor. 2.Bend your knees so they point up to the ceiling. Your feet should be flat on the floor. Your armsshould be flat at your sides, next to your body. 3.Tighten your butt muscles and lift your butt off the floor until your waist is almost as high as your knees. If you do not feel the muscles working in your butt and the back of your thighs, slide your feet 1 2 inches (2.5 5 cm) farther away from your butt. 4.Stay in this position for 3 5 seconds. 5.Slowly lower your butt to the floor, and let your butt muscles relax. If this exercise is too easy, try doing it with your arms crossed over your chest. Belly crunches Do these steps 5 10 times in a row: 1.Lie on your back on a firm bed or the floor with your legs stretched out. 2.Bend your knees so they point up to the ceiling. Your feet should be flat on the floor. 3.Cross your arms over your chest. 4.Tip your chin a little bit toward your chest, but do not bend your neck. 5.Tighten your belly muscles and slowly raise your chest just enough to lift your shoulder blades atiny bit off the floor. Avoid raising your body higher than that because it can put too much stresson your lower back. 6.Slowly lower your chest and your head to the floor. Back lifts Do these steps 5 10 times in a row: 1.Lie on your belly (face-down) with your arms at your sides, and rest your forehead on the floor. 2.Tighten the muscles in your legs and your butt. 3.Slowly lift your chest off the floor while you keep your hips on the floor. Keep the back of yourhead in line with the curve in your back. Look at the floor while you do this. 4.Stay in this position for 3 5 seconds. 5.Slowly lower your chest and your face to the floor. Contact a doctor if: Your back pain gets a lot worse when you do an exercise. Your back pain does not get better within 2 hours after you exercise. If you have any of these problems, stop doing the exercises. Do not do them again unless your doctor says it is okay. Get help right away if: You have sudden, very bad back pain. If this happens, stop doing the exercises. Do not do them again unless your doctor says it is okay. This information is not intended to replace advice given to you by your health care provider. Make sure you discuss any questions you have with your health care provider. Document Revised: 09/25/2021 Document Reviewed: 09/25/2021 [place] Patient Education 2023 [employer]. Follow Up Care 07/13/2024 11:52:38 With:WAYNE CHERY, Yelena Howard, [facility] Address: [facility] [address], [place] [address]- When: Unknown Comments:at regular appt but sooner if needed. [facility] 12-23-2024 NotePatient Education Orthopedics Back Exercises These exercises help to make your trunk and back strong. They also help to keep the lower back flexible. Doing these exercises can help to prevent or lessen pain in your lower back. ??? If you have back pain, try to do these exercises 2?3 times each day or as told by your doctor. ??? As you get better, do the exercises once each day. Repeat the exercises more often as told by your doctor. ??? To stop back pain from coming back, do the exercises once each day, or as told by your doctor. Do exercises exactly as told by your doctor. Stop right away if you feel sudden pain or your pain gets worse. Exercises Single knee to chest Do these steps 3?5 times in a row for each le. Lie on your back on a firm bed or the floor with your legs stretched out. 2. Bring one knee to your chest. 3. Grab your knee or thigh with both hands and hold it in place. 4. Pull on your knee until you feel a gentle stretch in your lower back or butt. 5. Keep doing the stretch for 10?30 seconds. 6. Slowly let go of your leg and straighten it. Pelvic tilt Do these steps 5?10 times in a row: 1. Lie on your back on a firm bed or the floor with your legs stretched out. 2. Bend your knees so they point up to the ceiling. Your feet should be flat on the floor. 3. Tighten your lower belly (abdomen) muscles to press your lower back against the floor. This willmake your tailbone point up to the ceiling instead of pointing down to your feet or the floor. 4. Stay in this position for 5?10 seconds while you gently tighten your muscles and breathe evenly. Cat?cow Do these steps until your lower back bends more easily: 1. Get on your hands and knees on a firm bed or the floor. Keep your hands under your shoulders, and keep your knees under your hips. You may put padding under your knees. 2. Let your head hang down toward your chest. Tighten (contract) the muscles in your belly. Point your tailbone toward the floor so your lower back becomes rounded like the back of a cat. 3. Stay in this position for 5 seconds. 4. Slowly lift your head. Let the muscles of your belly relax. Point your tailbone up toward the ceiling so your back forms a sagging arch like the back of a cow. 5. Stay in this position for 5 seconds. Press-ups Do these steps 5?10 times in a row: 1. Lie on your belly (face-down) on a firm bed or the floor. 2. Place your hands near your head, about shoulder-width apart. 3. While you keep your back relaxed and keep your hips on the floor, slowly straighten your arms toraise the top half of your body and lift your shoulders. Do not use your back muscles. You may change where you place your hands to make yourself more comfortable. 4. Stay in this position for 5 seconds. Keep your back relaxed. 5. Slowly return to lying flat on the floor. Bridges Do these steps 10 times in a row: 1. Lie on your back on a firm bed or the floor. 2. Bend your knees so they point up to the ceiling. Your feet should be flat on the floor. Your arms should be flat at your sides, next to your body. 3. Tighten your butt muscles and lift your butt off the floor until your waist is almost as high asyour knees. If you do not feel the muscles working in your butt and the back of your thighs, slide your feet 1?2 inches (2.5?5 cm) farther away from your butt. 4. Stay in this position for 3?5 seconds. 5. Slowly lower your butt to the floor, and let your butt muscles relax. If this exercise is too easy, try doing it with your arms crossed over your chest. Belly crunches Do these steps 5?10 times in a row: 1. Lie on your back on a firm bed or the floor with your legs stretched out. 2. Bend your knees so they point up to the ceiling. Your feet should be flat on the floor. 3. Cross your arms over your chest. 4. Tip your chin a little bit toward your chest, but do not bend your neck. 5. Tighten your belly muscles and slowly raise your chest just enough to lift your shoulder blades a tiny bit off the floor. Avoid raising your body higher than that because it can put too much stress on your lower back. 6. Slowly lower your chest and your head to the floor. Back lifts Do these steps 5?10 times in a row: 1. Lie on your belly (face-down) with your arms at your sides, and rest your forehead on the floor. 2. Tighten the muscles in your legs and your butt. 3. Slowly lift your chest off the floor while you keep your hips on the floor. Keep the back of your head in line with the curve in your back. Look at the floor while you do this. 4. Stay in this position for 3?5 seconds. 5. Slowly lower your chest and your face to the floor. Contact a doctor if: ??? Your back pain gets a lot worse when you do an exercise. ??? Your back pain does not get better within 2 hours after you exercise. If you have any of these pro (more content not included)...[facility]12-17-2024 History of Present illness Narrative* Michael Crespo MD - 07/12/2024 1:00 PM EST Images from the original note were not included. Follow up Diagnosis: Open wound after trauma Location: right medial lower leg Last visit: 2 months ago Symptoms: still sore, it's healing but still oozing a little Current treatment: daily wound care All pertinent medical history, medications, and allergies were reviewed. General Exam: alert, oriented to person, place, and time, normal affect, well appearing Unaccompanied A focused exam completed based on patient reported problems, see below: 1. Neoplasm of unspecified behavior of bone, soft tissue, and skin Right Lower Leg - Anterior Nonhealing ulcer with fibrinous base Lesion biopsy Type of biopsy: tangential Informed consent: discussed and consent obtained Informed consent comment: The risks and benefits of the biopsy were discussed. Risks include but are not limited to bleeding, infection, scarring, pain, and nerve damage. An opportunity to ask questions prior to the procedure was permitted and all questions were answered. Patient was prepped and draped in usual sterile fashion: area cleansed with alcohol. Anesthesia: the lesion was anesthetized in a standard fashion Anesthetic: 1% lidocaine w/ epinephrine 1-100,000 buffered w/ 8.4% NaHCO3 Instrument used: DermaBlade Hemostasis achieved with: electrodesiccation Outcome: patient tolerated procedure well Outcome comment: The specimen was placed in a prelabeled formalin container to be sent for pathology Post-procedure details: sterile dressing applied and wound care instructions given Post-procedure details comment: Emphasized need to contact clinic for any signs of infection, uncontrollable bleeding, or complications. Dressing type: bandage Additional details: Photo taken yes Amount of lidocaine used: 0.5 cc Specimen A - Dermatopathology exam Differential Diagnosis: non healing ulcer - favor traumatic ulcer with stasis derm, doubt SCC Check Margins: No Size of lesion: 1.5 x 1.0 cm If biopsy comes back benign, refer patient to wound clinic. Next Visit: pending biopsy results documented in this encounterSaint Louis University [id number] Hospital Discharge instructions Patient Education 06/27/2024 11:42:47 Chronic Kidney Disease, Adult, [id number] Chronic Kidney Disease, Adult Chronic kidney disease is when lasting damage happens to the kidneys slowly over a long time. The kidneys help to: Make pee (urine). Make hormones. Keep the right amount of fluids and chemicals in the body. Most often, this disease does not go away. You must take steps to help keep the kidney damage from getting worse. If steps are not taken, the kidneys might stop working forever. What are the causes? Diabetes. High blood pressure. Diseases that affect the heart and blood vessels. Other kidney diseases. Diseases of the body's disease-fighting system. A problem with the flow of pee. Infections of the organs that make pee, store it, and take it out of the body. Swelling or irritation of your blood vessels. What increases the risk? Getting older. Having someone in your family who has kidney disease or kidney failure. Having a disease caused by genes. Taking medicines often that harm the kidneys. Being near or having contact with harmful substances. Being very overweight. Using tobacco now or in the past. What are the signs or symptoms? Feeling very tired. Having a swollen face, legs, ankles, or feet. Feeling like you may vomit or vomiting. Not feeling hungry. Being confused or not able to focus. Twitches and cramps in the leg muscles or other muscles. Dry, itchy skin. A taste of metal in your mouth. Making less pee, or making more pee. Shortness of breath. Trouble sleeping. You may also become anemic or get weak bones. Anemic means there is not enough red blood cells or hemoglobin in your blood. You may get symptoms slowly. You may not notice them until the kidney damage gets very bad. How is this treated? Often, there is no cure for this disease. Treatment can help with symptoms and help keep the disease from getting worse. You may need to: Avoid alcohol. Avoid foods that are high in salt, potassium, phosphorous, and protein. Take medicines for symptoms and to help control other conditions. Have dialysis. This treatment gets harmful waste out of your body. Treat other problems that cause your kidney disease or make it worse. Follow these instructions at home: Medicines Take [id number] and prescription medicines only as told by your doctor. Do not take any new medicines, vitamins, or supplements unless your doctor says it is okay. Lifestyle Do not smoke or use any products that contain nicotine or tobacco. If you need help quitting, ask your doctor. If you drink alcohol: ?Limit how much you use to: ?0 1 drink a day for women who are not . ?0 2 drinks a day for men. ?Know how much alcohol is in your drink. In the [place] one drink equals one 12 oz bottle of beer (355 mL), one 5 oz glass of wine (148 mL), or one 1 oz glass of hard liquor (44 mL). Stay at a healthy weight. If you need help losing weight, ask your doctor. General instructions Follow instructions from your doctor about what you cannot eat or drink. Track your blood pressure at home. Tell your doctor about any changes. If you have diabetes, track your blood sugar. Exercise at least 30 minutes a day, 5 days a week. Keep your shots (vaccinations) up to date. Keep all follow-up visits. Where to find more information [place] [employer]: www.aakp.org National Kidney Foundation: www.kidney.org [employer]: www.akfinc.org Life Options: www.lifeoptions.org Kidney School: www.kidneyschool.org Contact a doctor if: Your symptoms get worse. You get new symptoms. Get help right away if: You get symptoms of end-stage kidney disease. These include: ?Headaches. ?Losing feeling in your hands or feet. ?Easy bruising. ?Having hiccups often. ?Chest pain. ?Shortness of breath. ?Lack of menstrual periods, in women. You have a fever. You make less pee than normal. You have pain or you bleed when you pee or poop. These symptoms may be an emergency. Get help right away. Call your local emergency services (911 inthe [place] Do not wait to see if the symptoms will go away. Do not drive yourself to the hospital. Summary Chronic kidney disease is when lasting damage happens to the kidneys slowly over a long time. Causes of this disease include diabetes and high blood pressure. Often, there is no cure for this disease. Treatment can help symptoms and help keep the disease from getting worse. Treatment may involve lifestyle changes, medicines, and dialysis. This information is not intended to replace advice given to you by your health care provider. Make sure you discuss any questions you have with your health care provider. Document Revised: 10/17/2020 Document Reviewed: 10/17/2020 [place] Patient Education 2023 [employer]. Follow Up Care 02/29/2024 09:46:40 With:WAYNE CHERY, Yelena Howard, CHRISTIE Address: [address], [place] [address]- When:Within 4 Month(s) [facility] 12-02-2024 NotePatient Education Nephrology Chronic Kidney Disease, Adult Chronic kidney disease is when lasting damage happens to the kidneys slowly over a long time. The kidneys help to: ??? Make pee (urine). ??? Make hormones. ??? Keep the right amount of fluids and chemicals in the body. Most often, this disease does not go away. You must take steps to help keep the kidney damage from getting worse. If steps are not taken, the kidneys might stop working forever. What are the causes? Diabetes. ??? High blood pressure. ??? Diseases that affect the heart and blood vessels. ??? Other kidney diseases. ??? Diseases of the body's disease-fighting system. ??? A problem with the flow of pee. ??? Infections of the organs that make pee, store it, and take it out of the body. ??? Swelling or irritation of your blood vessels. What increases the risk? Getting older. ??? Having someone in your family who has kidney disease or kidney failure. ??? Having a disease caused by genes. ??? Taking medicines often that harm the kidneys. ??? Being near or having contact with harmful substances. ??? Being very overweight. ??? Using tobacco now or in the past. What are the signs or symptoms? Feeling very tired. ??? Having a swollen face, legs, ankles, or feet. ??? Feeling like you may vomit or vomiting. ??? Not feeling hungry. ??? Being confused or not able to focus. ??? Twitches and cramps in the leg muscles or other muscles. ??? Dry, itchy skin. ??? A taste of metal in your mouth. ??? Making less pee, or making more pee. ??? Shortness of breath. ??? Trouble sleeping. You may also become anemic or get weak bones. Anemic means there is not enough red blood cells or hemoglobin in your blood. You may get symptoms slowly. You may not notice them until the kidney damage gets very bad. How is this treated? Often, there is no cure for this disease. Treatment can help with symptoms and help keep the disease from getting worse. You may need to: ??? Avoid alcohol. ??? Avoid foods that are high in salt, potassium, phosphorous, and protein. ??? Take medicines for symptoms and to help control other conditions. ??? Have dialysis. This treatment gets harmful waste out of your body. ??? Treat other problems that cause your kidney disease or make it worse. Follow these instructions at home: Medicines ??? Take spzw-kcc-uhbvtxj and prescription medicines only as told by your doctor. ??? Do not take any new medicines, vitamins, or supplements unless your doctor says it is okay. Lifestyle ??? Do not smoke or use any products that contain nicotine or tobacco. If you need help quitting, ask your doctor. ??? If you drink alcohol: ? Limit how much you use to: ? 0?1 drink a day for women who are not . ? 0?2 drinks a day for men. ? Know how much alcohol is in your drink. In the [place] one drink equals one 12 oz bottle of beer (355 mL), one 5 oz glass of wine (148 mL), or one 1? oz glass of hard liquor (44 mL). ??? Stay at a healthy weight. If you need help losing weight, ask your doctor. General instructions ??? Follow instructions from your doctor about what you cannot eat or drink. ??? Track your blood pressure at home. Tell your doctor about any changes. ??? If you have diabetes, track your blood sugar. ??? Exercise at least 30 minutes a day, 5 days a week. ??? Keep your shots (vaccinations) up to date. ??? Keep all follow-up visits. Where to find more information ??? [place] [employer]: www.aakp.org ??? National Kidney Foundation: www.kidney.org ??? [place]: www.akfinc.org ??? Life Options: www.lifeoptions.org ??? Kidney School: www.kidneyschool.org Contact a doctor if: ??? Your symptoms get worse. ??? You get new symptoms. Get help right away if: ??? You get symptoms of end-stage kidney disease. These include: ? Headaches. ? Losing feeling in your hands or feet. ? Easy bruising. ? Having hiccups often. ? Chest pain. ? Shortness of breath. ? Lack of menstrual periods, in women. ??? You have a fever. ??? You make less pee than normal. ??? You have pain or you bleed when you pee or poop. These symptoms may be an emergency. Get help right away. Call your local emergency services (911 int [place] ??? Do not wait to see if the symptoms will go away. ??? Do not drive yourself to the hospital. Summary ??? Chronic kidney disease is when lasting damage happens to the kidneys slowly over a long time. ??? Causes of this disease include diabetes and high blood pressure. ??? Often, there is no cure for this disease. Treatment can help symptoms and help keep the diseasefrom getting worse. ??? Treatment may involve lifestyle changes, medicines, and dialysis. This information is not intended to replace advice given to you by your (more content not included)...[facility]11-04-2024 History of Present illness Narrative* Michael Crespo MD - 05/30/2024 10:00 AM EST Images from the original note were not included. Follow up Diagnosis: Open wound after trauma Location: right medial lower leg Last visit: 2 months ago Symptoms: scabbed, sore Current treatment: Peroxide occasionally, was on Keflex 500 bid for 10 days in March. Whizzer Operator advised patient to wear compression stockings, but patient feels this irritated the skin more. All pertinent medical history, medications, and allergies were reviewed. General Exam: alert, oriented to person, place, and time, normal affect, well appearing Unaccompanied A focused exam completed based on patient reported problems, see below: 1. Leg ulcer, right, limited to breakdown of skin (CMS/HCC) Right Lower Leg - Anterior Wound with mild erythema surrounding site, hemorrhagic crust, no signs of infection Wound check/care today. See note: Wound Care Location: Right lower leg anterior Wound Care: Cleansed the site with Vashe wound wash, petroleum ointment was applied and covered with a sterile bandage Wound Debridement: Non-viable tissue was removed from the wound bed (without anesthesia) Instructions: Instructed to continue daily wound care Gentle debridement done today. Recommend open wound care daily to area and will recheck in 4-6 weeks. Reviewed signs/symptoms of infection, notify office if these occur. Biopsy in reserve if failing to improve. Next Visit: 4 weeks documented in this encounterSaint Louis University [id number] NotePatient Education Obstetrics and Gynecology Overactive Bladder, Adult Overactive bladder is a condition in which a person has a sudden and frequent need to urinate. A person might also leak urine if he or she cannot get to the bathroom fast enough (urinary incontinence). Sometimes, symptoms can interfere with work or social activities. What are the causes? Overactive bladder is associated with poor nerve signals between your bladder and your brain. Your bladder may get the signal to empty before it is full. You may also have very sensitive muscles thatmake your bladder squeeze too soon. This condition may also be caused by other factors, such as: ? Medical conditions: ? Urinary tract infection. ? Infection of nearby tissues. ? Prostate enlargement. ? Bladder stones, inflammation, or tumors. ? Diabetes. ? Muscle or nerve weakness, especially from these conditions: ? A spinal cord injury. ? Stroke. ? Multiple sclerosis. ? Parkinson's disease. ? Other causes: ? Surgery on the uterus or urethra. ? Drinking too much caffeine or alcohol. ? Certain medicines, especially those that eliminate extra fluid in the body (diuretics). ? Constipation. What increases the risk? You may be at greater risk for overactive bladder if you: ? Are an older adult. ? Smoke. ? Are going through menopause. ? Have prostate problems. ? Have a neurological disease, such as stroke, dementia, Parkinson's disease, or multiple sclerosis(MS). ? Eat or drink alcohol, spicy food, caffeine, and other things that irritate the bladder. ? Are overweight or obese. What are the signs or symptoms? Symptoms of this condition include a sudden, strong urge to urinate. Other symptoms include: ? Leaking urine. ? Urinating 8 or more times a day. ? Waking up to urinate 2 or more times overnight. How is this diagnosed? This condition may be diagnosed based on: ? Your symptoms and medical history. ? A physical exam. ? Blood or urine tests to check for possible causes, such as infection. You may also need to see a health care provider who specializes in urinary tract problems. This is called a urologist. How is this treated? Treatment for overactive bladder depends on the cause of your condition and whether it is mild or severe. Treatment may include: ? Bladder training, such as: ? Learning to control the urge to urinate by following a schedule to urinate at regular intervals. ? Doing Kegel exercises to strengthen the pelvic floor muscles that support your bladder. ? Special devices, such as: ? Biofeedback. This uses sensors to help you become aware of your body's signals. ? Electrical stimulation. This uses electrodes placed inside the body (implanted) or outside the body. These electrodes send gentle pulses of electricity to strengthen the nerves or muscles that control the bladder. ? Women may use a plastic device, called a pessary, that fits into the vagina and supports the bladder. ? Medicines, such as: ? Antibiotics to treat bladder infection. ? Antispasmodics to stop the bladder from releasing urine at the wrong time. ? Tricyclic antidepressants to relax bladder muscles. ? Injections of botulinum toxin type A directly into the bladder tissue to relax bladder muscles. ? Surgery, such as: ? A device may be implanted to help manage the nerve signals that control urination. ? An electrode may be implanted to stimulate electrical signals in the bladder. ? A procedure may be done to change the shape of the bladder. This is done only in very severe cases. Follow these instructions at home: Eating and drinking ? Make diet or lifestyle changes recommended by your health care provider. These may include: ? Drinking fluids throughout the day and not only with meals. ? Cutting down on caffeine or alcohol. ? Eating a healthy and balanced diet to prevent constipation. This may include: ? Choosing foods that are high in fiber, such as beans, whole grains, and fresh fruits and vegetables. ? Limiting foods that are high in fat and processed sugars, such as fried and sweet foods. Lifestyle ? Lose weight if needed. ? Do not use any products that contain nicotine or tobacco. These include cigarettes, chewing tobacco, and vaping devices, such as e-cigarettes. If you need help quitting, ask your health care provider. General instructions ? Take cqzv-bii-avueeoe and prescription medicines only as told by your health care provider. ? If you were prescribed an antibiotic medicine, take it as told by your health care provider. Do not stop taking the antibiotic even if you start to feel better. ? Use any implants or pessary as told by your health care provider. ? If needed, wear pads to absorb urine leakage. ? Keep a log to track how much and when you drink, and when you need to urinate. This will help your health care (more content not included)...[facility]09-10-2024 Hospital Discharge instructions Patient Education 04/05/2024 14:12:30 Edema, Frnh-zs-Fihg Edema Edema is when you have too much fluid in your body or under your skin. Edema may make your legs, feet, and ankles swell. Swelling often happens in looser tissues, such as around your eyes. This is a common condition. It gets more common as you get older. There are many possible causes of edema. These include: Eating too much salt (sodium). Being on your feet or sitting for a long time. Certain medical conditions, such as: ?. ?Heart failure. ?Liver disease. ?Kidney disease. ?Cancer. Hot weather may make edema worse. Edema is usually painless. Your skin may look swollen or shiny. Follow these instructions at home: Medicines Take uyyk-mqn-xdoehzr and prescription medicines only as told by your doctor. Your doctor may prescribe a medicine to help your body get rid of extra water (diuretic). Take thismedicine if you are told to take it. Eating and drinking Eat a low-salt (low-sodium) diet as told by your doctor. Sometimes, eating less salt may reduce swelling. Depending on the cause of your swelling, you may need to limit how much fluid you drink (fluid restriction). General instructions Raise the injured area above the level of your heart while you are sitting or lying down. Do not sit still or stand for a long time. Do not wear tight clothes. Do not wear garters on your upper legs. Exercise your legs. This can help the swelling go down. Wear compression stockings as told by your doctor. It is important that these are the right size. These should be prescribed by your doctor to prevent possible injuries. If elastic bandages or wraps are recommended, use them as told by your doctor. Contact a doctor if: Treatment is not working. You have heart, liver, or kidney disease and have symptoms of edema. You have sudden and unexplained weight gain. Get help right away if: You have shortness of breath or chest pain. You cannot breathe when you lie down. You have pain, redness, or warmth in the swollen areas. You have heart, liver, or kidney disease and get edema all of a sudden. You have a fever and your symptoms get worse all of a sudden. These symptoms may be an emergency. Get help right away. Call 911. Do not wait to see if the symptoms will go away. Do not drive yourself to the hospital. Summary Edema is when you have too much fluid in your body or under your skin. Edema may make your legs, feet, and ankles swell. Swelling often happens in looser tissues, such asaround your eyes. Raise the injured area above the level of your heart while you are sitting or lying down. Follow your doctor's instructions about diet and how much fluid you can drink. This information is not intended to replace advice given to you by your health care provider. Make sure you discuss any questions you have with your health care provider. Document Revised: 03/17/2022 Document Reviewed: 03/17/2022 [place] Patient Education 2023 [employer]. Follow Up Care 03/31/2024 11:36:56 With:WAYNE CHERY, Yelena Howard, [facility] Address: [facility] [address], [place] [address]- When: Unknown Comments:at regular appt but sooner if needed. [facility] 09-10-2024 NotePatient Education Obstetrics and Gynecology Edema Edema is when you have too much fluid in your body or under your skin. Edema may make your legs, feet, and ankles swell. Swelling often happens in looser tissues, such as around your eyes. This is a common condition. It gets more common as you get older. There are many possible causes of edema. These include: ? Eating too much salt (sodium). ? Being on your feet or sitting for a long time. ? Certain medical conditions, such as: ? . ? Heart failure. ? Liver disease. ? Kidney disease. ? Cancer. Hot weather may make edema worse. Edema is usually painless. Your skin may look swollen or shiny. Follow these instructions at home: Medicines ? Take bqut-sfr-bazwciq and prescription medicines only as told by your doctor. ? Your doctor may prescribe a medicine to help your body get rid of extra water (diuretic). Take this medicine if you are told to take it. Eating and drinking ? Eat a low-salt (low-sodium) diet as told by your doctor. Sometimes, eating less salt may reduce swelling. ? Depending on the cause of your swelling, you may need to limit how much fluid you drink (fluid restriction). General instructions ? Raise the injured area above the level of your heart while you are sitting or lying down. ? Do not sit still or stand for a long time. ? Do not wear tight clothes. Do not wear garters on your upper legs. ? Exercise your legs. This can help the swelling go down. ? Wear compression stockings as told by your doctor. It is important that these are the right size.These should be prescribed by your doctor to prevent possible injuries. ? If elastic bandages or wraps are recommended, use them as told by your doctor. Contact a doctor if: ? Treatment is not working. ? You have heart, liver, or kidney disease and have symptoms of edema. ? You have sudden and unexplained weight gain. Get help right away if: ? You have shortness of breath or chest pain. ? You cannot breathe when you lie down. ? You have pain, redness, or warmth in the swollen areas. ? You have heart, liver, or kidney disease and get edema all of a sudden. ? You have a fever and your symptoms get worse all of a sudden. These symptoms may be an emergency. Get help right away. Call 911. ? Do not wait to see if the symptoms will go away. ? Do not drive yourself to the hospital. Summary ? Edema is when you have too much fluid in your body or under your skin. ? Edema may make your legs, feet, and ankles swell. Swelling often happens in looser tissues, such as around your eyes. ? Raise the injured area above the level of your heart while you are sitting or lying down. ? Follow your doctor's instructions about diet and how much fluid you can drink. This information is not intended to replace advice given to you by your health care provider. Make sure you discuss any questions you have with your health care provider. Document Revised: 03/17/2022 Document Reviewed: 03/17/2022 [place] Patient Education ? 2023 [employer].[facility] 03-29-2024 History of Present illness Narrative* Colleen Ray, FINISHER PLATE-COMPUTER INSTRUCTOR - 03/29/2024 9:20 AM EDT Images from the original note were not included. Follow up Diagnosis: Impetigo Location: right medial lower leg Last visit: 2 weeks ago Symptoms: it's still painful and red and when I put hydrogen peroxide on it, it still bubbles up Status: still there Procedure performed: culture (negative) Date of procedure: 03/15/2024 Treatments tried and failed: Neosporin Current treatment: Keflex 500 mg bid x 10 days, pt instructed to clean wound with H202 daily All pertinent medical history, medications, and allergies were reviewed. General Exam: alert , oriented to person, place, and time , normal affect, well appearing Unaccompanied A focused exam completed based on patient reported problems, see below: 1. Impetigo Right Lower Leg - Anterior No signs of infection today Recommend patient continue wound care using saline wash, apply vaseline and then a bandage. Follow up in 2 months, will consider biopsy if no improvement. Related Medications cephalexin (Keflex) 500 MG capsule Take 1 capsule, by mouth, bid, 10 days 2. Stasis dermatitis of both legs Left Lower Leg - Anterior, Right Lower Leg - Anterior [place] scaly plaques in areas of edema +3 pitting edema of right lower leg. +1 Pitting edema on left lower leg The patient was informed that stasis dermatitis is a chronic rash on the lower legs due to swellingoften caused by poor circulation. The patient was instructed to keep the legs elevated when seated,avoid standing for long periods of time, and to wear compression stockings. Recommend patient follow up with PCP to determine cause of swelling. 3. Erythema intertrigo Left Inframammary Fold, Right Inframammary Fold [place] moist plaques. Flaring today Discussed that intertrigo is a chronic condition that can be controlled but not cured. Recommend keeping areas as dry as possible to avoid flares. Ciclopirox cream bid when flared, hold when clear. Related Medications ciclopirox (Loprox) 0.77 % cream Apply thin layer to affected area once a day, 30 day supply Next Visit: 2 months documented in this encounterSaint Louis University [id number] History of Present illness Narrative* ANETTE Mcneil - 03/15/2024 8:55 AM EDT Images from the original note were not included. Lesions: Location: Right medial lower leg Duration: September 2023, occurred after injury Quality: painful Modifying factors: swelling in her lower legs Associated symptoms: non-healing Treatments: Neosporin New patient All pertinent medical history, medications, and allergies were reviewed. General Exam: alert , oriented to person, place, and time , normal affect, well appearing Unaccompanied A focused exam completed based on patient reported problems, see below: 1. Impetigo Right medial lower leg Hemorrhagic crust with yellow drainage and moderate surrounding erythema Instructed patient to elevate legs through out the day and informed compression stockings would be helpful during wound healing. Instructed to cleanse wound daily H2O2 and apply bandage. Reviewed proper use of prescribed medication will call with results in 2-3 days and informed it may be necessaryto change antibiotic. Specimen 1 - Aerobic culture Account Name: Modesto Hamm NPI: Colleen Woodsonluis [id number] Related Medications cephalexin (Keflex) 500 MG capsule Take 1 capsule, by mouth, bid, 10 days Next Visit: 10 days documented in this encounterSaint Louis University [id number] Hospital Discharge instructions Patient Education 02/29/2024 15:57:38 Monoclonal Gammopathy of Undetermined Significance Monoclonal Gammopathy of Undetermined Significance Monoclonal gammopathy of undetermined significance (MGUS) is a condition in which there is too muchof a protein called monoclonal protein, or M protein, in the blood. MGUS can cause you to have too many cells in your blood and not enough space for healthy cells. This condition may not have any symptoms, but it may increase your risk of developing multiple myeloma or other blood disorders in the future. What are the causes? The cause of this condition is not known. Genetics and the environment may play a role. What increases the risk? You are more likely to develop this condition if: You are . You are age 50 or older. You are male. You have an autoimmune disease. You have been exposed to radiation. You have a family history of MGUS. What are the signs or symptoms? There are usually no symptoms of this condition. In rare cases, some people may have: Numbness or tingling in the hands, lower legs, or feet. Bone problems. Frequent infections. How is this diagnosed? This condition may be diagnosed with tests that check for the M protein, such as: A blood test. A urine test. How is this treated? Treatment may involve monitoring your condition. This may include: Having regular exams. This will allow your health care provider to monitor your health. Having tests done regularly, such as: ?Blood tests to check for M protein in your body. ?Imaging tests, such as a CT scan. ?A bone marrow biopsy. This test involves taking a sample of bone marrow from your body so it can be checked under a microscope. Follow these instructions at home: Take mvoe-hfg-koviexm and prescription medicines only as told by your health care provider. Keep all follow-up visits. Where to find more information International Myeloma Foundation: myeloma.org Contact a health care provider if: You have trouble swallowing. You have pain in your back or ribs. You have numbness or tingling in your hands, lower legs, or feet. You have a fever. You are bruising easily. Get help right away if: You break a bone. You have trouble breathing. Summary Monoclonal gammopathy of undetermined significance (MGUS) is a condition in which there is too muchof a protein called monoclonal protein, or M protein, in the blood. This condition may be diagnosed with a blood test that checks for M protein. Treatment for this condition may involve having tests done regularly. Tests may include blood tests, imaging tests, and a bone marrow biopsy. This information is not intended to replace advice given to you by your health care provider. Make sure you discuss any questions you have with your health care provider. Document Revised: 08/20/2022 Document Reviewed: 08/20/2022 [place] Patient Education 2022 [employer]. Follow Up Care 08/03/2023 10:46:18 With:Sandoval CHERY, CHRISTIE Cornelius, ONC Address: When: Unknown Comments:Continue Femara 2.5 mg once daily.Continue calcium plus vitamin D twice daily.Continue vitamin D 1000 unit daily in addition to the calcium and vitamin D.Continue Actonel 25 mg once a week. CBCD, CMPand myeloma labs in 6 months.RTC in 6 months. [facility] 08-05-2024 NoteOncology Progress Note Chief Complaint Follow up on Breast Ca, no questions or concerns at this time. Diagnoses 1. Right breast multifocal invasive lobular carcinoma (right breast mass at 9:00), ER 95%, W[place] 60-70%, Her2 was 1+ by IHC Ki 67 <1%. 2. 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 3. Osteopenia Oncological History/ROS/PE/Assessment and Plan History of Present Illness Jerrica is a 87-year-old nice lady was referred by Dr. Yelena Michelle to our oncology clinic to be evaluated for abnormal mammogram in the right side with suspicious BI-RADS 4 abnormalities or lesion at 9:00 on the right breast. She saw general surgery 03/03/23 and was scheduled for core biopsy of the right breast. She denied any previous history of breast cancer in the past however she has a historyof gastric cancer many years ago. On the other hand Dr. Michelle referred her to our hematology clinic for paraproteinemia with positive serum protein immunofixation and urine protein immunofixation both for IgG kappa. She denies any new bone pain. No prior history of MGUS or multiple myeloma. 03/17/23: She is here for 3 weeks follow up for results of the myeloma labs, skeletal bone survey and for 03/05/23 right breast core biopsy results. Skeletal bone survey was negative for lytic lesions. Myeloma labs confirmed Elevated K and L light chains with elevated K/L ration and elevated IgA level. Breastcore biopsy done on 03/05/23 revealed: Final Diagnosis RIGHT BREAST NODULE, 9 O'CLOCK, ULTRASOUND-GUIDED CORE BIOPSY: ? INVASIVE LOBULAR CARCINOMA, GRADE 1. ? ATYPICAL LOBULAR HYPERPLASIA. Note: Invasive carcinoma cells are negative for beta-catenin and E-cadherin, compatible with rendered diagnosis. Clinical Information Right breast nodule 9:00 Pre-Op Diagnosis: Right breast nodule 9:00 Procedure: US guided core biopsy right breast Specimen(s) Received Right breast nodule 9:00 Gross Description Received in formalin labeled with patient name, number, and right breast nodule 9 o'clock are approximately 15 light yellow almodovar pink core biopsies measuring from 0.8 cm up to 1.9 cm long and up to 0.3 cm in diameter measuring in aggregate 3.5 x 3.4 x 0.5 cm. The core biopsies are submitted in cassettes 1-4. Also received in the container are fragments of light yellow almodovar soft tissue measuring in aggregate 2.7 x 1 x 0.2 cm. These fragments are submitted in cassette #5, total of 5 cassettes. Specimen collected at 10:32 and placed in 10% neutral buffered formalin at 10:41 and fixed approximately 8 hrs. (DC) Microscopic Description Microscopic examination performed unless gross only specified. Invasive carcinoma involves most of the biopsy fragments, which measure up to 1.9 cm in length and 3.5 cm in aggregate. Histologic grade of invasive carcinoma: Tubule formation score: 3 Nuclear pleomorphism score: 1 Mitotic count score: 1 [place] Grade: 1 , total score 5 Supplemental IHC report : Estrogen receptor: Positive ( >95 % of tumor cells, strong intensity) Progesterone receptor: Positive ( 60-70% of tumor cells, strong intensity) Ki-67 index of invasive tumor cells: <1 % HER 2 at lab shola by IHC 1+. 05/04/23: She underwent right breast lumpectomy on 04/15/23 and surgical path results revealed: Procedure: Right breast needle localized lumpectomy Post-Op Diagnosis: Invasive cancer Diagnosis Comment (Verified) A: Breast Invasive Carcinoma - Resection Specimen Procedure: Needle Guided Lumpectomy Specimen Laterality: Right Tumor Tumor Site: Not specified Histologic Type: Invasive lobular carcinoma Histologic Type Comment: Infiltrative; usual type Histologic Grade (Salem Histologic Score): Glandular (Acinar) / Tubular Differentiation: Score 2 Nuclear Pleomorphism: Score 1 Mitotic Rate: Score 1 Overall Grade: Grade 1 (scores of 3, 4 or 5) Tumor Size: 25 Millimeters (mm) Tumor Focality: Multiple foci of invasive carcinoma Number of Foci: At least 10 Sizes of Individual Foci in Millimeters (mm): 1 to 25 mm Ductal Carcinoma In Situ (DCIS): Not identified Lobular Carcinoma In Situ (LCIS): Not identified Lymphatic and / or Vascular Invasion: Not identified Dermal Lymphovascular Invasion: No skin present Microcalcifications: Present in non-neoplastic tissue Treatment Effect in the Breast: No known presurgical therapy Margins Margin Status for Invasive Carcinoma: All margins negative for invasive carcinoma Distance from Invasive Carcinoma to Closest Margin: 2 mm Closest Margin(s) to Invasive Carcinoma: Superior Margin Comment: Tumor closely approximates (1-2mm) the superior margin in the lumpectomy specimen. The tumor distribution within the specimen is multifocal and random. The distance to other margins is greater but the tumor distribution is random, with normal breast tissue between tumor foci. In theextra margin tissue(Specimen B ) there is no identified tumor. Case final ma (more content not included)...[facility]08-05-2024 Hospital Discharge instructions Patient Education 02/29/2024 09:29:37 Chronic Kidney Disease, Adult, Yzih-ne-Zigk Chronic Kidney Disease, Adult Chronic kidney disease is when lasting damage happens to the kidneys slowly over a long time. The kidneys help to: Make pee (urine). Make hormones. Keep the right amount of fluids and chemicals in the body. Most often, this disease does not go away. You must take steps to help keep the kidney damage from getting worse. If steps are not taken, the kidneys might stop working forever. What are the causes? Diabetes. High blood pressure. Diseases that affect the heart and blood vessels. Other kidney diseases. Diseases of the body's disease-fighting system. A problem with the flow of pee. Infections of the organs that make pee, store it, and take it out of the body. Swelling or irritation of your blood vessels. What increases the risk? Getting older. Having someone in your family who has kidney disease or kidney failure. Having a disease caused by genes. Taking medicines often that harm the kidneys. Being near or having contact with harmful substances. Being very overweight. Using tobacco now or in the past. What are the signs or symptoms? Feeling very tired. Having a swollen face, legs, ankles, or feet. Feeling like you may vomit or vomiting. Not feeling hungry. Being confused or not able to focus. Twitches and cramps in the leg muscles or other muscles. Dry, itchy skin. A taste of metal in your mouth. Making less pee, or making more pee. Shortness of breath. Trouble sleeping. You may also become anemic or get weak bones. Anemic means there is not enough red blood cells or hemoglobin in your blood. You may get symptoms slowly. You may not notice them until the kidney damage gets very bad. How is this treated? Often, there is no cure for this disease. Treatment can help with symptoms and help keep the disease from getting worse. You may need to: Avoid alcohol. Avoid foods that are high in salt, potassium, phosphorous, and protein. Take medicines for symptoms and to help control other conditions. Have dialysis. This treatment gets harmful waste out of your body. Treat other problems that cause your kidney disease or make it worse. Follow these instructions at home: Medicines Take rafz-kuq-wfpdeqj and prescription medicines only as told by your doctor. Do not take any new medicines, vitamins, or supplements unless your doctor says it is okay. Lifestyle Do not smoke or use any products that contain nicotine or tobacco. If you need help quitting, ask your doctor. If you drink alcohol: ?Limit how much you use to: ?0 1 drink a day for women who are not . ?0 2 drinks a day for men. ?Know how much alcohol is in your drink. In the [place] one drink equals one 12 oz bottle of beer (355 mL), one 5 oz glass of wine (148 mL), or one 1 oz glass of hard liquor (44 mL). Stay at a healthy weight. If you need help losing weight, ask your doctor. General instructions Follow instructions from your doctor about what you cannot eat or drink. Track your blood pressure at home. Tell your doctor about any changes. If you have diabetes, track your blood sugar. Exercise at least 30 minutes a day, 5 days a week. Keep your shots (vaccinations) up to date. Keep all follow-up visits. Where to find more information [place] [employer]: www.aakp.org National Kidney Foundation: www.kidney.org [place]: www.akfinc.org Life Options: www.lifeoptions.org Kidney School: www.kidneyschool.org Contact a doctor if: Your symptoms get worse. You get new symptoms. Get help right away if: You get symptoms of end-stage kidney disease. These include: ?Headaches. ?Losing feeling in your hands or feet. ?Easy bruising. ?Having hiccups often. ?Chest pain. ?Shortness of breath. ?Lack of menstrual periods, in women. You have a fever. You make less pee than normal. You have pain or you bleed when you pee or poop. These symptoms may be an emergency. Get help right away. Call your local emergency services (911 int [place] Do not wait to see if the symptoms will go away. Do not drive yourself to the hospital. Summary Chronic kidney disease is when lasting damage happens to the kidneys slowly over a long time. Causes of this disease include diabetes and high blood pressure. Often, there is no cure for this disease. Treatment can help symptoms and help keep the disease from getting worse. Treatment may involve lifestyle changes, medicines, and dialysis. This information is not intended to replace advice given to you by your health care provider. Make sure you discuss any questions you have with your health care provider. Document Revised: 10/17/2020 Document Reviewed: 10/17/2020 [employer] Patient Education 2022 [employer] Follow Up Care 10/12/2023 16:28:58 With:WAYNE CHERY, Yelena Howard, [facility] Address: [facility] [address] [place] [address]- When:Within 4 Month(s) [facility] 08-05-2024 NotePatient Education Nephrology Chronic Kidney Disease, Adult Chronic kidney disease is when lasting damage happens to the kidneys slowly over a long time. The kidneys help to: ? Make pee (urine). ? Make hormones. ? Keep the right amount of fluids and chemicals in the body. Most often, this disease does not go away. You must take steps to help keep the kidney damage from getting worse. If steps are not taken, the kidneys might stop working forever. What are the causes? ? Diabetes. ? High blood pressure. ? Diseases that affect the heart and blood vessels. ? Other kidney diseases. ? Diseases of the body's disease-fighting system. ? A problem with the flow of pee. ? Infections of the organs that make pee, store it, and take it out of the body. ? Swelling or irritation of your blood vessels. What increases the risk? ? Getting older. ? Having someone in your family who has kidney disease or kidney failure. ? Having a disease caused by genes. ? Taking medicines often that harm the kidneys. ? Being near or having contact with harmful substances. ? Being very overweight. ? Using tobacco now or in the past. What are the signs or symptoms? ? Feeling very tired. ? Having a swollen face, legs, ankles, or feet. ? Feeling like you may vomit or vomiting. ? Not feeling hungry. ? Being confused or not able to focus. ? Twitches and cramps in the leg muscles or other muscles. ? Dry, itchy skin. ? A taste of metal in your mouth. ? Making less pee, or making more pee. ? Shortness of breath. ? Trouble sleeping. You may also become anemic or get weak bones. Anemic means there is not enough red blood cells or hemoglobin in your blood. You may get symptoms slowly. You may not notice them until the kidney damage gets very bad. How is this treated? Often, there is no cure for this disease. Treatment can help with symptoms and help keep the disease from getting worse. You may need to: ? Avoid alcohol. ? Avoid foods that are high in salt, potassium, phosphorous, and protein. ? Take medicines for symptoms and to help control other conditions. ? Have dialysis. This treatment gets harmful waste out of your body. ? Treat other problems that cause your kidney disease or make it worse. Follow these instructions at home: Medicines ? Take reyu-yhc-etoyevq and prescription medicines only as told by your doctor. ? Do not take any new medicines, vitamins, or supplements unless your doctor says it is okay. Lifestyle ? Do not smoke or use any products that contain nicotine or tobacco. If you need help quitting, askyour doctor. ? If you drink alcohol: ? Limit how much you use to: ? 0?1 drink a day for women who are not . ? 0?2 drinks a day for men. ? Know how much alcohol is in your drink. In the [place] one drink equals one 12 oz bottle of beer (355 mL), one 5 oz glass of wine (148 mL), or one 1? oz glass of hard liquor (44 mL). ? Stay at a healthy weight. If you need help losing weight, ask your doctor. General instructions ? Follow instructions from your doctor about what you cannot eat or drink. ? Track your blood pressure at home. Tell your doctor about any changes. ? If you have diabetes, track your blood sugar. ? Exercise at least 30 minutes a day, 5 days a week. ? Keep your shots (vaccinations) up to date. ? Keep all follow-up visits. Where to find more information ? [place] [employer] Patients: www.aakp.org ? National Kidney Foundation: www.kidney.org ? [place] [employer]: www.akfinc.org ? Life Options: www.lifeoptions.org ? Kidney School: www.kidneyschool.org Contact a doctor if: ? Your symptoms get worse. ? You get new symptoms. Get help right away if: ? You get symptoms of end-stage kidney disease. These include: ? Headaches. ? Losing feeling in your hands or feet. ? Easy bruising. ? Having hiccups often. ? Chest pain. ? Shortness of breath. ? Lack of menstrual periods, in women. ? You have a fever. ? You make less pee than normal. ? You have pain or you bleed when you pee or poop. These symptoms may be an emergency. Get help right away. Call your local emergency services (911 int [place] ? Do not wait to see if the symptoms will go away. ? Do not drive yourself to the hospital. Summary ? Chronic kidney disease is when lasting damage happens to the kidneys slowly over a long time. ? Causes of this disease include diabetes and high blood pressure. ? Often, there is no cure for this disease. Treatment can help symptoms and help keep the disease from getting worse. ? Treatment may involve lifestyle changes, medicines, and dialysis. This information is not intended to replace advice given to you by your health care provider. Make sure you discuss any questions you have with your health care provider. Document Revised: 10/17 (more content not included)...[facility]06-20-2024 Hospital Discharge instructions Patient Education 01/14/2024 18:15:08 Preventive Care 65 Years and Older, Female Preventive Care 65 Years and Older, Female Preventive care refers to lifestyle choices and visits with your health care provider that can promote health and wellness. Preventive care visits are also called wellness exams. What can I expect for my preventive care visit? Counseling Your health care provider may ask you questions about your: Medical history, including: ?Past medical problems. ?Family medical history. ? and menstrual history. ?History of falls. Current health, including: ?Memory and ability to understand (cognition). ?Emotional well-being. ?Home life and relationship well-being. ?Sexual activity and sexual health. Lifestyle, including: ?Alcohol, nicotine or tobacco, and drug use. ?Access to firearms. ?Diet, exercise, and sleep habits. ?Work and work environment. ?Sunscreen use. ?Safety issues such as seatbelt and bike helmet use. Physical exam Your health care provider will check your: Height and weight. These may be used to calculate your BMI (body mass index). BMI is a measurement that tells if you are at a healthy weight. Waist circumference. This measures the distance around your waistline. This measurement also tells if you are at a healthy weight and may help predict your risk of certain diseases, such as type 2 diabetes and high blood pressure. Heart rate and blood pressure. Body temperature. Skin for abnormal spots. What immunizations do I need? Vaccines are usually given at various ages, according to a schedule. Your health care provider willrecommend vaccines for you based on your age, medical history, and lifestyle or other factors, suchas travel or where you work. What tests do I need? Screening Your health care provider may recommend screening tests for certain conditions. This may include: Lipid and cholesterol levels. Hepatitis C test. Hepatitis B test. HIV (human immunodeficiency virus) test. STI (sexually transmitted infection) testing, if you are at risk. Lung cancer screening. Colorectal cancer screening. Diabetes screening. This is done by checking your blood sugar (glucose) after you have not eaten for a while (fasting). Mammogram. Talk with your health care provider about how often you should have regular mammograms. BRCA-related cancer screening. This may be done if you have a family history of breast, ovarian, tubal, or peritoneal cancers. Bone density scan. This is done to screen for osteoporosis. Talk with your health care provider about your test results, treatment options, and if necessary, the need for more tests. Follow these instructions at home: Eating and drinking Eat a diet that includes fresh fruits and vegetables, whole grains, lean protein, and low-fat dairyproducts. Limit your intake of foods with high amounts of sugar, saturated fats, and salt. Take vitamin and mineral supplements as recommended by your health care provider. Do not drink alcohol if your health care provider tells you not to drink. If you drink alcohol: ?Limit how much you have to 0 1 drink a day. ?Know how much alcohol is in your drink. In the [place] one drink equals one 12 oz bottle of beer (355 mL), one 5 oz glass of wine (148 mL), or one 1 oz glass of hard liquor (44 mL). Lifestyle [place] your teeth every morning and night with fluoride toothpaste. Floss one time each day. Exercise for at least 30 minutes 5 or more days each week. Do not use any products that contain nicotine or tobacco. These products include cigarettes, chewing tobacco, and vaping devices, such as e-cigarettes. If you need help quitting, ask your health careprovider. Do not use drugs. If you are sexually active, practice safe sex. Use a condom or other form of protection in order toprevent STIs. Take aspirin only as told by your health care provider. Make sure that you understand how much to take and what form to take. Work with your health care provider to find out whether it is safe and beneficial for you to take aspirin daily. Ask your health care provider if you need to take a cholesterol-lowering medicine (statin). Find healthy ways to manage stress, such as: ?Meditation, yoga, or listening to music. ?Journaling. ?Talking to a trusted person. ?Spending time with friends and family. Minimize exposure to UV radiation to reduce your risk of skin cancer. Safety Always wear your seat belt while driving or riding in a vehicle. Do not drive: ?If you have been drinking alcohol. Do not ride with someone who has been drinking. ?When you are tired or distracted. ?While texting. ?If you have been using any mind-altering substances or drugs. Wear a helmet and other protective equipment during sports activities. If you have firearms in your house, make sure you follow all gun safety procedures. What's next? Visit your health care provider once a year for an annual wellness visit. Ask your health care provider how often you should have your eyes and teeth checked. Stay up to date on all vaccines. This information is not intended to replace advice given to you by your health care provider. Make sure you discuss any questions you have with your health care provider. Document Revised: 01/08/2022 Document Reviewed: 01/08/2022 [employer] Patient Education 2022 [employer]. 01/14/2024 18:15:02 Food Basics for Chronic Kidney Disease Food Basics for Chronic Kidney Disease Chronic kidney disease (CKD) is when your kidneys are not working well. They cannot remove waste, fluids, and other substances from your blood the way they should. These substances can build up, which can worsen kidney damage and affect how your body works. Eating certain foods can lead to a buildup of these substances. Changing your diet can help prevent more kidney damage. Diet changes may also delay dialysis or even keep you from needing it. What nutrients should I limit? Work with your treatment team and a food expert (dietitian) to make a meal plan that's right for you. Foods you can eat and foods you should limit or avoid will depend on the stage of your kidney disease and any other health conditions you have. The items listed below are not a complete list. Talk with your dietitian to learn what is best for you. Potassium Potassium affects how steadily your heart beats. Too much potassium in your blood can cause an irregular heartbeat or even a heart attack. You may need to limit foods that are high in potassium, such as: Liquid milk and soy milk. Salt substitutes that contain potassium. Fruits like bananas, apricots, nectarines, melon, prunes, raisins, kiwi, and oranges. Vegetables, such as potatoes, sweet potatoes, yams, tomatoes, leafy greens, beets, avocado, pumpkin, and winter squash. Beans, like plaza beans. Nuts. Phosphorus Phosphorus is a mineral found in your bones. You need a balance between calcium and phosphorus to build and maintain healthy bones. Too much added phosphorus from the foods you eat can pull calcium from your bones. Losing calcium can make your bones weak and more likely to break. Too much phosphorus can also make your skin itch. You may need to limit foods that are high in phosphorus or that have added phosphorus, such as: Liquid milk and dairy products. Dark-colored sodas or soft drinks. Bran cereals and oatmeal. Protein Protein helps you make and keep muscle. Protein also helps to repair your body's cells and tissues.One of the natural breakdown products of protein is a waste product called urea. When your kidneys are not working well, they cannot remove types of waste like urea. Reducing protein in your diet canhelp keep urea from building up in your blood. Depending on your stage of kidney disease, you may need to eat smaller portions of foods that are high in protein. Sources of animal protein include: Meat (all types). Fish and seafood. Poultry. Eggs. Dairy. Other protein foods include: Beans and legumes. Nuts and nut butter. Soy, like tofu. Sodium Salt (sodium) helps to keep a healthy balance of fluids in your body. Too much salt can increase your blood pressure, which can harm your heart and lungs. Extra salt can also cause your body to keep too much fluid, making your kidneys work harder. You may need to limit or avoid foods that are high in salt, such as: Salt seasonings. Soy and teriyaki sauce. Packaged, precooked, cured, or processed meats, such as sausages or meat loaves. Sardines. Salted crackers and snack foods. Fast food. Canned soups and most canned foods. Pickled foods. Vegetable juice. Boxed mixes or rfsso-uw-nhs boxed meals and side dishes. Bottled dressings, sauces, and marinades. Talk with your dietitian about how much potassium, phosphorus, protein, and salt you may have each day. Helpful tips Read food labels Check the amount of salt in foods. Limit foods that have salt or sodium listed among the first fiveingredients. Try to eat low-salt foods. Check the ingredient list for added phosphorus or potassium. Phos in an ingredient is a sign thatphosphorus has been added. Do not buy foods that are calcium-enriched or that have calcium added to them (are fortified). Buy canned vegetables and beans that say no salt added and rinse them before eating. Lifestyle Limit the amount of protein you eat from animal sources each day. Focus on protein from plant sources, like tofu and dried beans, peas, and lentils. Do not add salt to food when cooking or before eating. Do not eat star fruit. It can be toxic for people with kidney problems. Talk with your health care provider before taking any vitamin or mineral supplements. If told by your health care provider, track how much liquid you drink so you can avoid drinking toomuch. You may need to include foods you eat that are made mostly from water, like gelatin, ice cream, soups, and juicy fruits and vegetables. If you have diabetes: If you have diabetes (diabetes mellitus) and CKD, you need to keep your blood sugar (glucose) in the target range recommended by your health care provider. Follow your diabetes management plan. This may include: Checking your blood glucose regularly. Taking medicines by mouth, or taking insulin, or both. Exercising for at least 30 minutes on 5 or more days each week, or as told by your health care provider. Tracking how many servings of carbohydrates you eat at each meal. Not using orange juice to treat low blood sugars. Instead, use apple juice, cranberry juice, or clear soda. You may be given guidelines on what foods and nutrients you may eat, and how much you can have eachday. This depends on your stage of kidney disease and whether you have high blood pressure (hypertension). Follow the meal plan your dietitian gives you. To learn more: National Prole of Diabetes and Digestive and Kidney Diseases: niddk.nih.gov National Kidney Foundation: kidney.org Summary Chronic kidney disease (CKD) is when your kidneys are not working well. They cannot remove waste, fluids, and other substances from your blood the way they should. These substances can build up, which can worsen kidney damage and affect how your body works. Changing your diet can help prevent more kidney damage. Diet changes may also delay dialysis or even keep you from needing it. Diet changes are different for each person with CKD. Work with a dietitian to set up a meal plan that is right for you. This information is not intended to replace advice given to you by your health care provider. Make sure you discuss any questions you have with your health care provider. Document Revised: 10/31/2022 Document Reviewed: 11/05/2020 [place] Patient Education 2022 [employer]. 01/14/2024 18:14:49 BMI for Adults BMI for Adults What is BMI? Body mass index (BMI) is a number that is calculated from a person's weight and height. BMI can help estimate how much of a person's weight is composed of fat. BMI does not measure body fat directly.Rather, it is an alternative to procedures that directly measure body fat, which can be difficult and expensive. BMI can help identify people who may be at higher risk for certain medical problems. What are BMI measurements used for? BMI is used as a screening tool to identify possible weight problems. It helps determine whether a person is obese, overweight, a healthy weight, or underweight. BMI is useful for: Identifying a weight problem that may be related to a medical condition or may increase the risk for medical problems. Promoting changes, such as changes in diet and exercise, to help reach a healthy weight. BMI screening can be repeated to see if these changes are working. How is BMI calculated? BMI involves measuring your weight in relation to your height. Both height and weight are measured,and the BMI is calculated from those numbers. This can be done either in [place] ([place] or metric measurements. Note that charts and online BMI calculators are available to help you find your BMI quickly and easily without having to do these calculations yourself. To calculate your BMI in [place] ([place] measurements: 1.Measure your weight in pounds (lb). 2.Multiply the number of pounds by 703. For example, for a person who weighs 180 lb, multiply that number by 703, which equals 126,540. 3.Measure your height in inches. Then multiply that number by itself to get a measurement called inches squared. For example, for a person who is 70 inches tall, the inches squared measurement is 70 inches x 70inches, which equals 4,900 inches squared. 4.Divide the total from step 2 (number of lb x 703) by the total from step 3 (inches squared): 126,540 4,900 = 25.8. This is your BMI. To calculate your BMI in metric measurements: 1.Measure your weight in kilograms (kg). 2.Measure your height in meters (m). Then multiply that number by itself to get a measurement called meters squared. For example, for a person who is 1.75 m tall, the meters squared measurement is 1.75 m x 1.75 m, which is equal to 3.1 meters squared. 3.Divide the number of kilograms (your weight) by the meters squared number. In this example: 70 3.1 = 22.6. This is your BMI. What do the results mean? BMI charts are used to identify whether you are underweight, normal weight, overweight, or obese. The following guidelines will be used: Underweight: BMI less than 18.5. Normal weight: BMI between 18.5 and 24.9. Overweight: BMI between 25 and 29.9. Obese: BMI of 30 or above. Keep these notes in mind: Weight includes both fat and muscle, so someone with a muscular build, such as an athlete, may havea BMI that is higher than 24.9. In cases like these, BMI is not an accurate measure of body fat. To determine if excess body fat is the cause of a BMI of 25 or higher, further assessments may needto be done by a health care provider. BMI is usually interpreted in the same way for men and women. Where to find more information For more information about BMI, including tools to quickly calculate your BMI, go to these websites: Centers for Disease Control and Prevention: www.cdc.gov [place] [employer]: www.heart.org National Heart, Lung, and Blood Prole: www.nhlbi.nih.gov Summary Body mass index (BMI) is a number that is calculated from a person's weight and height. BMI may help estimate how much of a person's weight is composed of fat. BMI can help identify thosewho may be at higher risk for certain medical problems. BMI can be measured using [place] measurements or metric measurements. BMI charts are used to identify whether you are underweight, normal weight, overweight, or obese. This information is not intended to replace advice given to you by your health care provider. Make sure you discuss any questions you have with your health care provider. Document Revised: 04/04/2020 Document Reviewed: 02/10/2020 [place] Patient Education 2022 [employer]. 01/14/2024 18:14:48 Bone Health Bone Health Bones protect organs, store calcium, anchor muscles, and support the whole body. Keeping your bonesstrong is important, especially as you get older. You can take actions to help keep your bones strong and healthy. Why is keeping my bones healthy important? Keeping your bones healthy is important because your body constantly replaces bone cells. Cells getold, and new cells take their place. As we age, we lose bone cells because the body may not be ableto make enough new cells to replace the old cells. The amount of bone cells and bone tissue you have is referred to as bone mass. The higher your bone mass, the stronger your bones. The aging process leads to an overall loss of bone mass in the body, which can increase the likelihood of: Broken bones. A condition in which the bones become weak and brittle (osteoporosis). A large decline in bone mass occurs in older adults. In women, it occurs about the time of menopause. What actions can I take to keep my bones healthy? Good health habits are important for maintaining healthy bones. This includes eating nutritious foods and exercising regularly. To have healthy bones, you need to get enough of the right minerals andvitamins. Most nutrition experts recommend getting these nutrients from the foods that you eat. In some cases, taking supplements may also be recommended. Doing certain types of exercise is also important for bone health. What are the nutritional recommendations for healthy bones? Eating a well-balanced diet with plenty of calcium and vitamin D will help to protect your bones. Nutritional recommendations vary from person to person. Ask your health care provider what is healthyfor you. Here are some general guidelines. Get enough calcium Calcium is the most important (essential) mineral for bone health. Most people can get enough calcium from their diet, but supplements may be recommended for people who are at risk for osteoporosis. Good sources of calcium include: Dairy products, such as low-fat or nonfat milk, cheese, and yogurt. Dark green leafy vegetables, such as bok johnny and broccoli. Foods that have calcium added to them (are fortified). Foods that may be fortified with calcium include orange juice, cereal, bread, soy beverages, and tofu products. Nuts, such as almonds. Follow these recommended amounts for daily calcium intake: Infants, 0 6 months: 200 mg. Infants, 6 12 months: 260 mg. Children, age 1 3: 700 mg. Children, age 4 8: 1,000 mg. Children, age 9 13: 1,300 mg. Teens, age 14 18: 1,300 mg. Adults, age 19 50: 1,000 mg. Adults, age 51 70: ?Men: 1,000 mg. ?Women: 1,200 mg. Adults, age 71 or older: 1,200 mg. and females: ?Teens: 1,300 mg. ?Adults: 1,000 mg. Get enough vitamin D Vitamin D is the most essential vitamin for bone health. It helps the body absorb calcium. Sunlightstimulates the skin to make vitamin D, so be sure to get enough sunlight. If you live in a cold climate or you do not get outside often, your health care provider may recommend that you take vitamin D supplements. Good sources of vitamin D in your diet include: Egg yolks. Saltwater fish. Milk and cereal fortified with vitamin D. Follow these recommended amounts for daily vitamin D intake: Infants, 0 12 months: 400 international units (IU). Children and teens, age 1 18: 600 international units. Adults, age 59 or younger: 600 international units. Adults, age 60 or older: 600 1,000 international units. Get other important nutrients Other nutrients that are important for bone health include: Phosphorus. This mineral is found in meat, poultry, dairy foods, nuts, and legumes. The recommendeddaily intake for adult men and adult women is 700 mg. Magnesium. This mineral is found in seeds, nuts, dark green vegetables, and legumes. The recommended daily intake for adult men is 400 420 mg. For adult women, it is 310 320 mg. Vitamin K. This vitamin is found in green leafy vegetables. The recommended daily intake is 120 mcgfor adult men and 90 mcg for adult women. What type of physical activity is best for building and maintaining healthy bones? Weight-bearing and strength-building activities are important for building and maintaining healthy bones. Weight-bearing activities cause muscles and bones to work against gravity. Strength-building activities increase the strength of the muscles that support bones. Weight-bearing and muscle-building activities include: Walking and hiking. Jogging and running. Dancing. Gym exercises. Lifting weights. Tennis and racquetball. Climbing stairs. Aerobics. Adults should get at least 30 minutes of moderate physical activity on most days. Children should get at least 60 minutes of moderate physical activity on most days. Ask your health care provider what type of exercise is best for you. How can I find out if my bone mass is low? Bone mass can be measured with an X-ray test called a bone mineral density (BMD) test. This test isrecommended for all women who are age 65 or older. It may also be recommended for: Men who are age 70 or older. People who are at risk for osteoporosis because of: ?Having a long-term disease that weakens bones, such as kidney disease or rheumatoid arthritis. ?Having menopause earlier than normal. ?Taking medicine that weakens bones, such as steroids, thyroid hormones, or hormone treatment for breast cancer or prostate cancer. ?Smoking. ?Drinking three or more alcoholic drinks a day. ?Being underweight. ?Sedentary lifestyle. If you find that you have a low bone mass, you may be able to prevent osteoporosis or further bone loss by changing your diet and lifestyle. Where can I find more information? Bone Health & Osteoporosis Foundation: www.nof.org/patients National Institutes of Health: www.bones.nih.gov International Osteoporosis Foundation: www.iofbonehealth.org Summary The aging process leads to an overall loss of bone mass in the body, which can increase the likelihood of broken bones and osteoporosis. Eating a well-balanced diet with plenty of calcium and vitamin D will help to protect your bones. Weight-bearing and strength-building activities are also important for building and maintaining strong bones. Bone mass can be measured with an X-ray test called a bone mineral density (BMD) test. This information is not intended to replace advice given to you by your health care provider. Make sure you discuss any questions you have with your health care provider. Document Revised: 12/25/2021 Document Reviewed: 12/25/2021 [employer] Patient Education 2022 [employer]. 01/14/2024 18:14:39 DASH Eating Plan DASH Eating Plan DASH stands for Dietary Approaches to Stop Hypertension. The DASH eating plan is a healthy eating plan that has been shown to: Reduce high blood pressure (hypertension). Reduce your risk for type 2 diabetes, heart disease, and stroke. Help with weight loss. What are tips for following this plan? Reading food labels Check food labels for the amount of salt (sodium) per serving. Choose foods with less than 5 percent of the Daily Value of sodium. Generally, foods with less than 300 milligrams (mg) of sodium per serving fit into this eating plan. To find whole grains, look for the word whole as the first word in the ingredient list. Shopping Buy products labeled as low-sodium or no salt added. Buy fresh foods. Avoid canned foods and pre-made or frozen meals. Cooking Avoid adding salt when cooking. Use salt-free seasonings or herbs instead of table salt or sea salt. Check with your health care provider or pharmacist before using salt substitutes. Do not grace foods. Cook foods using healthy methods such as baking, boiling, grilling, roasting, andbroiling instead. Cook with heart-healthy oils, such as olive, canola, avocado, soybean, or sunflower oil. Meal planning Eat a balanced diet that includes: ?4 or more servings of fruits and 4 or more servings of vegetables each day. Try to fill one-half of your plate with fruits and vegetables. ?6 8 servings of whole grains each day. ?Less than 6 oz (170 g) of lean meat, poultry, or fish each day. A 3-oz (85-g) serving of meat is about the same size as a deck of cards. One egg equals 1 oz (28 g). ?2 3 servings of low-fat dairy each day. One serving is 1 cup (237 mL). ?1 serving of nuts, seeds, or beans 5 times each week. ?2 3 servings of heart-healthy fats. Healthy fats called omega-3 fatty acids are found in foods such as walnuts, flaxseeds, fortified milks, and eggs. These fats are also found in cold-water fish, such as sardines, salmon, and mackerel. Limit how much you eat of: ?Canned or prepackaged foods. ?Food that is high in trans fat, such as some fried foods. ?Food that is high in saturated fat, such as fatty meat. ?Desserts and other sweets, sugary drinks, and other foods with added sugar. ?Full-fat dairy products. Do not salt foods before eating. Do not eat more than 4 egg yolks a week. Try to eat at least 2 vegetarian meals a week. Eat more home-cooked food and less restaurant, buffet, and fast food. Lifestyle When eating at a restaurant, ask that your food be prepared with less salt or no salt, if possible. If you drink alcohol: ?Limit how much you use to: ?0 1 drink a day for women who are not . ?0 2 drinks a day for men. ?Be aware of how much alcohol is in your drink. In the [place] one drink equals one 12 oz bottle of beer (355 mL), one 5 oz glass of wine (148 mL), or one 1 oz glass of hard liquor (44 mL). General information Avoid eating more than 2,300 mg of salt a day. If you have hypertension, you may need to reduce your sodium intake to 1,500 mg a day. Work with your health care provider to maintain a healthy body weight or to lose weight. Ask what an ideal weight is for you. Get at least 30 minutes of exercise that causes your heart to beat faster (aerobic exercise) most days of the week. Activities may include walking, swimming, or biking. Work with your health care provider or dietitian to adjust your eating plan to your individual calorie needs. What foods should I eat? Fruits All fresh, dried, or frozen fruit. Canned fruit in natural juice (without added sugar). Vegetables Fresh or frozen vegetables (raw, steamed, roasted, or grilled). Low-sodium or reduced-sodium tomatoand vegetable juice. Low-sodium or reduced-sodium tomato sauce and tomato paste. Low-sodium or reduced-sodium canned vegetables. Grains Whole-grain or whole-wheat bread. Whole-grain or whole-wheat pasta. Brown rice. Oatmeal. Quinoa. Bulgur. Whole-grain and low-sodium cereals. Aaliyah bread. Low- fat, low-sodium crackers. Whole-wheat flour tortillas. Meats and other proteins Skinless chicken or turkey. Ground chicken or turkey. Pork with fat trimmed off. Fish and seafood. Egg whites. Dried beans, peas, or lentils. Unsalted nuts, nut butters, and seeds. Unsalted canned beans. Lean cuts of beef with fat trimmed off. Low-sodium, lean precooked or cured meat, such as sausages or meat loaves. Dairy Low-fat (1%) or fat-free (skim) milk. Reduced-fat, low-fat, or fat-free cheeses. Nonfat, low-sodiumricotta or cottage cheese. Low-fat or nonfat yogurt. Low-fat, low-sodium cheese. Fats and oils Soft margarine without trans fats. Vegetable oil. Reduced-fat, low-fat, or light mayonnaise and salad dressings (reduced-sodium). Canola, safflower, olive, avocado, soybean, and sunflower oils. Avocado. Seasonings and condiments Herbs. Spices. Seasoning mixes without salt. Other foods Unsalted popcorn and pretzels. Fat-free sweets. The items listed above may not be a complete list of foods and beverages you can eat. Contact a dietitian for more information. What foods should I avoid? Fruits Canned fruit in a light or heavy syrup. Fried fruit. Fruit in cream or butter sauce. Vegetables Creamed or fried vegetables. Vegetables in a cheese sauce. Regular canned vegetables (not low-sodium or reduced-sodium). Regular canned tomato sauce and paste (not low-sodium or reduced-sodium). Regular tomato and vegetable juice (not low-sodium or reduced-sodium). Pickles. Olives. Grains Baked goods made with fat, such as croissants, muffins, or some breads. Dry pasta or rice meal packs. Meats and other proteins Fatty cuts of meat. Ribs. Fried meat. Davis. Bologna, salami, and other precooked or cured meats, such as sausages or meat loaves. Fat from the back of a pig (fatback). Bratwurst. Salted nuts and seeds. Canned beans with added salt. Canned or smoked fish. Whole eggs or egg yolks. Chicken or turkey with skin. Dairy Whole or 2% milk, cream, and [id number]. Whole or full-fat cream cheese. Whole-fat or sweetened yogurt. Full-fat cheese. Nondairy creamers. Whipped toppings. Processed cheese and cheese spreads. Fats and oils Butter. Stick margarine. Lard. Shortening. Ghee. Davis fat. Tropical oils, such as coconut, palm kernel, or palm oil. Seasonings and condiments Onion salt, garlic salt, seasoned salt, table salt, and sea salt. Worcestershire sauce. Tartar sauce. Barbecue sauce. Teriyaki sauce. Soy sauce, including reduced-sodium. Steak sauce. Canned and packaged gravies. Fish sauce. Oyster sauce. Cocktail sauce. Store-bought horseradish. Ketchup. Mustard. Meat flavorings and tenderizers. Bouillon cubes. Hot sauces. Pre-made or packaged marinades. Pre-made or packaged taco seasonings. Relishes. Regular salad dressings. Other foods Salted popcorn and pretzels. The items listed above may not be a complete list of foods and beverages you should avoid. Contact a dietitian for more information. Where to find more information National Heart, Lung, and Blood Prole: www.nhlbi.nih.gov [place] [employer]: www.heart.org Academy of Nutrition and Dietetics: www.eatright.org National Kidney Foundation: www.kidney.org Summary The DASH eating plan is a healthy eating plan that has been shown to reduce high blood pressure (hypertension). It may also reduce your risk for type 2 diabetes, heart disease, and stroke. When on the DASH eating plan, aim to eat more fresh fruits and vegetables, whole grains, lean proteins, low-fat dairy, and heart-healthy fats. With the DASH eating plan, you should limit salt (sodium) intake to 2,300 mg a day. If you have hypertension, you may need to reduce your sodium intake to 1,500 mg a day. Work with your health care provider or dietitian to adjust your eating plan to your individual calorie needs. This information is not intended to replace advice given to you by your health care provider. Make sure you discuss any questions you have with your health care provider. Document Revised: 06/15/2020 Document Reviewed: 06/15/2020 [employer] Patient Education 2022 [employer]. [facility] 05-20-2024 Hospital Discharge instructions Patient Education 12/14/2023 14:02:32 Food Choices for Gastroesophageal Reflux Disease, Adult Food Choices for Gastroesophageal Reflux Disease, Adult When you have gastroesophageal reflux disease (GERD), the foods you eat and your eating habits are very important. Choosing the right foods can help ease the discomfort of GERD. Consider working witha dietitian to help you make healthy food choices. What are tips for following this plan? Reading food labels Look for foods that are low in saturated fat. Foods that have less than 5% of daily value (DV) of fat and 0 g of trans fats may help with your symptoms. Cooking Cook foods using methods other than frying. This may include baking, steaming, grilling, or broiling. These are all methods that do not need a lot of fat for cooking. To add flavor, try to use herbs that are low in spice and acidity. Meal planning Choose healthy foods that are low in fat, such as fruits, vegetables, whole grains, low-fat dairy products, lean meats, fish, and poultry. Eat frequent, small meals instead of three large meals each day. Eat your meals slowly, in a relaxed setting. Avoid bending over or lying down until 2 3 hours after eating. Limit high-fat foods such as fatty meats or fried foods. Limit your intake of fatty foods, such as oils, butter, and shortening. Avoid the following as told by your health care provider: ?Foods that cause symptoms. These may be different for different people. Keep a food diary to keep track of foods that cause symptoms. ?Alcohol. ?Drinking large amounts of liquid with meals. ?Eating meals during the 2 3 hours before bed. Lifestyle Maintain a healthy weight. Ask your health care provider what weight is healthy for you. If you need to lose weight, work with your health care provider to do so safely. Exercise for at least 30 minutes on 5 or more days each week, or as told by your health care provider. Avoid wearing clothes that fit tightly around your waist and chest. Do not use any products that contain nicotine or tobacco. These products include cigarettes, chewing tobacco, and vaping devices, such as e-cigarettes. If you need help quitting, ask your health careprovider. Sleep with the head of your bed raised. Use a wedge under the mattress or blocks under the bed frame to raise the head of the bed. Chew sugar-free gum after mealtimes. What foods should I eat? Eat a healthy, well-balanced diet of fruits, vegetables, whole grains, low-fat dairy products, leanmeats, fish, and poultry. Each person is different. Foods that may trigger symptoms in one person may not trigger any symptoms in another person. Work with your health care provider to identify foodsthat are safe for you. The items listed above may not be a complete list of recommended foods and beverages. Contact a dietitian for more information. What foods should I avoid? Limiting some of these foods may help manage the symptoms of GERD. Everyone is different. Consult adietitian or your health care provider to help you identify the exact foods to avoid, if any. Fruits Any fruits prepared with added fat. Any fruits that cause symptoms. For some people this may include citrus fruits, such as oranges, grapefruit, pineapple, and alvarez. Vegetables Deep-fried vegetables. [place] fries. Any vegetables prepared with added fat. Any vegetables that cause symptoms. For some people, this may include tomatoes and tomato products, chili peppers, onions and garlic, and horseradish. Grains Pastries or quick breads with added fat. Meats and other proteins High-fat meats, such as fatty beef or pork, hot dogs, ribs, ham, sausage, salami, and daivs. Fried meat or protein, including fried fish and fried chicken. Nuts and nut butters, in large amounts. Dairy Whole milk and chocolate milk. Sour cream. Cream. Ice cream. Cream cheese. Milkshakes. Fats and oils Butter. Margarine. Shortening. Ghee. Beverages Coffee and tea, with or without caffeine. Carbonated beverages. Sodas. Energy drinks. Fruit juice made with acidic fruits, such as orange or grapefruit. Tomato juice. Alcoholic drinks. Sweets and desserts Chocolate and cocoa. Donuts. Seasonings and condiments Pepper. Peppermint and spearmint. Added salt. Any condiments, herbs, or seasonings that cause symptoms. For some people, this may include adames, hot sauce, or vinegar-based salad dressings. The items listed above may not be a complete list of foods and beverages to avoid. Contact a dietitian for more information. Questions to ask your health care provider Diet and lifestyle changes are usually the first steps that are taken to manage symptoms of GERD. If diet and lifestyle changes do not improve your symptoms, talk with your health care provider abouttaking medicines. Where to find more information [employer]: aboutgerd.org Summary When you have gastroesophageal reflux disease (GERD), food and lifestyle choices may be very helpful in easing the discomfort of GERD. Eat frequent, small meals instead of three large meals each day. Eat your meals slowly, in a relaxed setting. Avoid bending over or lying down until 2 3 hours after eating. Limit high-fat foods such as fatty meats or fried foods. This information is not intended to replace advice given to you by your health care provider. Make sure you discuss any questions you have with your health care provider. Document Revised: 01/21/2021 Document Reviewed: 01/21/2021 [place] Patient Education 2022 [employer]. Follow Up Care 09/15/2023 14:40:26 With:Tammy Cantu CNP Address: When:6 months Comments:Patient to follow-up with Dr. Waters or Dr. Robles. [facility] 03-18-2024 Hospital Discharge instructions Patient Education 10/12/2023 16:17:32 Influenza, Adult, Wtyv-sg-Qhsq Influenza, Adult Influenza is also called the flu. It is an infection in the lungs, nose, and throat (respiratory tract). It spreads easily from person to person (is contagious). The flu causes symptoms that are like a cold, along with high fever and body aches. What are the causes? This condition is caused by the influenza virus. You can get the virus by: Breathing in droplets that are in the air after a person infected with the flu coughed or sneezed. Touching something that has the virus on it and then touching your mouth, nose, or eyes. What increases the risk? Certain things may make you more likely to get the flu. These include: Not washing your hands often. Having close contact with many people during cold and flu season. Touching your mouth, eyes, or nose without first washing your hands. Not getting a flu shot every year. You may have a higher risk for the flu, and serious problems, such as a lung infection (pneumonia),if you: Are older than 65. Are . Have a weakened disease-fighting system (immune system) because of a disease or because you are taking certain medicines. Have a long-term (chronic) condition, such as: ?Heart, kidney, or lung disease. ?Diabetes. ?Asthma. Have a liver disorder. Are very overweight (morbidly obese). Have anemia. What are the signs or symptoms? Symptoms usually begin suddenly and last 4 14 days. They may include: Fever and chills. Headaches, body aches, or muscle aches. Sore throat. Cough. Runny or stuffy (congested) nose. Feeling discomfort in your chest. Not wanting to eat as much as normal. Feeling weak or tired. Feeling dizzy. Feeling sick to your stomach or throwing up. How is this treated? If the flu is found early, you can be treated with antiviral medicine. This can help to reduce how bad the illness is and how long it lasts. This may be given by mouth or through an IV tube. Taking care of yourself at home can help your symptoms get better. Your doctor may want you to: Take nswj-vnh-reimqnu medicines. Drink plenty of fluids. The flu often goes away on its own. If you have very bad symptoms or other problems, you may be treated in a hospital. Follow these instructions at home: Activity Rest as needed. Get plenty of sleep. Stay home from work or school as told by your doctor. ?Do not leave home until you do not have a fever for 24 hours without taking medicine. ?Leave home only to go to your doctor. Eating and drinking Take an ORS (oral rehydration solution). This is a drink that is sold at pharmacies and stores. Drink enough fluid to keep your pee pale yellow. Drink clear fluids in small amounts as you are able. Clear fluids include: ?Water. ?Ice chips. ?Fruit juice mixed with water. ?Low-calorie sports drinks. Eat bland foods that are easy to digest. Eat small amounts as you are able. These foods include: ?Bananas. ?Applesauce. ?Rice. ?Lean meats. ?[place]. ?Crackers. Do not eat or drink: ?Fluids that have a lot of sugar or caffeine. ?Alcohol. ?Spicy or fatty foods. General instructions Take xwwp-yms-kixqjjt and prescription medicines only as told by your doctor. Use a cool mist humidifier to add moisture to the air in your home. This can make it easier for youto breathe. ?When using a cool mist humidifier, clean it daily. Empty water and replace with clean water. Cover your mouth and nose when you cough or sneeze. Wash your hands with soap and water often and for at least 20 seconds. This is also important afteryou cough or sneeze. If you cannot use soap and water, use alcohol-based hand phlebotomy coordinator. Keep all follow-up visits. How is this prevented? Get a flu shot every year. You may get the flu shot in late summer, fall, or winter. Ask your doctor when you should get your flu shot. Avoid contact with people who are sick during fall and winter. This is cold and flu season. Contact a doctor if: You get new symptoms. You have: ?Chest pain. ?Watery poop (diarrhea). ?A fever. Your cough gets worse. You start to have more mucus. You feel sick to your stomach. You throw up. Get help right away if you: Have shortness of breath. Have trouble breathing. Have skin or nails that turn a bluish color. Have very bad pain or stiffness in your neck. Get a sudden headache. Get sudden pain in your face or ear. Cannot eat or drink without throwing up. These symptoms may represent a serious problem that is an emergency. Get medical help right away. Call your local emergency services (911 in the [place] Do not wait to see if the symptoms will go away. Do not drive yourself to the hospital. Summary Influenza is also called the flu. It is an infection in the lungs, nose, and throat. It spreads easily from person to person. Take cjzp-sul-jcniwtl and prescription medicines only as told by your doctor. Getting a flu shot every year is the best way to not get the flu. This information is not intended to replace advice given to you by your health care provider. Make sure you discuss any questions you have with your health care provider. Document Revised: 03/01/2021 Document Reviewed: 03/01/2021 [employer] Patient Education 2022 [employer]. Follow Up Care 10/02/2023 09:44:17 With:WAYNE CHERY, Yelena Howard, MED Address: [facility] [address], [place] [address]- When:Within 3 Month(s) [facility] 03-09-2024 Hospital Discharge instructions Patient Education 10/03/2023 13:16:46 Acute Respiratory Failure, Adult Acute Respiratory Failure, Adult Acute respiratory failure is when one or both of these things happen: Oxygen cannot pass from the lungs into the blood, causing the blood oxygen level to drop. Loss of blood oxygen means tissues and organs may not work well. A gas called carbon dioxide cannot pass from the blood into the lungs so the body can get rid of it. The buildup of carbon dioxide can damage the tissues and organs in the body. Acute respiratory failure happens fast. It is an emergency and needs to be treated right away. What are the causes? Common causes of respiratory failure that may cause low oxygen levels include: Trauma to the lung, chest, or ribs, or to the tissues around the lung. Lung conditions, such as pneumonia, asthma, or blood clots in the lungs (pulmonary embolism). Breathing in harmful chemicals, smoke, water, or vomit. A widespread infection (sepsis). Heart attack. Common causes of respiratory failure that cause a buildup of carbon dioxide include: Stroke. A spinal cord injury. Drug or alcohol overdose. Sepsis. The heart stopping all of a sudden (cardiac arrest). What increases the risk? This condition is more likely to develop in people who have: Known lung conditions, such as asthma or chronic obstructive pulmonary disease (COPD). A condition that damages or weakens the muscles, nerves, bones, or tissues that are involved in breathing, such as myasthenia gravis or Guillain Nicole syndrome. A health problem that blocks the unconscious reflex that is involved in breathing, such as hypothyroidism or sleep apnea. What are the signs or symptoms? Symptoms may depend on the cause and on the levels of oxygen and carbon dioxide in your blood. Trouble breathing is the main symptom of acute respiratory failure. Other symptoms may include: Fast breathing. Making high-pitched whistling sounds when you breathe (wheezing) and grunting. Confusion or changes in behavior. Feeling tired, sleeping more than normal, or being hard to wake. Skin, lips, or fingernails that look blue (cyanosis). Feeling restless or anxious. Fast or irregular heartbeats (palpitations). How is this diagnosed? This condition may be diagnosed based on: Your medical history and a physical exam. Your health care provider will listen to your heart and lungs to check for abnormal sounds. Tests to confirm the diagnosis and find the cause of respiratory failure. Tests may include: ?Measuring the amount of oxygen in your blood (pulse oximetry). This involves placing a small device on your finger, earlobe, or toe. ?Blood tests to measure levels of blood oxygen and carbon dioxide. ?Chest X-ray. How is this treated? Treatment for this condition usually takes place in a hospital intensive care unit (ICU). Treatmentdepends on the cause of the condition. Treatment may include one or more of these: Oxygen given through your nose or a face mask. A device to help you breathe, such as a continuous positive airway pressure (CPAP) machine or bilevel positive airway pressure (BIPAP) machine. The device gives you oxygen and pressure. Other breathing treatments, fluids, and medicines. A breathing machine called a ventilator. This gives you oxygen and pressure to help you breathe. A tube is put into your mouth and windpipe (trachea) and connects to the ventilator. Tracheostomy placement, if you are on a ventilator for a long time. A tracheostomy is a breathing tube put through your neck into your trachea. Follow these instructions at home: Medicines Take ruln-trt-pxfaxwp and prescription medicines only as told by your health care provider. If you were prescribed antibiotics, take them as told by your health care provider. Do not stop using the antibiotic even if you start to feel better. General instructions Return to your normal activities as told by your health care provider. Ask your health care provider what activities are safe for you. Do not use any products that contain nicotine or tobacco. These products include cigarettes, chewing tobacco, and vaping devices, such as e-cigarettes. If you need help quitting, ask your health careprovider. Keep all follow-up visits. Contact a health care provider if: Your symptoms do not improve or they get worse. Get help right away if: You are having trouble breathing. You lose consciousness. Your heart starts beating very fast. Your fingers, lips, or other areas of your body turn blue. You are confused. These symptoms may be an emergency. Get help right away. Call 911. Do not wait to see if the symptoms will go away. Do not drive yourself to the hospital. Summary Acute respiratory failure is a condition that develops fast and needs to be treated right away. The main symptom of this condition is trouble breathing. Treatment for this condition usually takes place in a hospital intensive care unit (ICU). Treatmentmay include oxygen, fluids, and medicines. A machine may be used to help you breathe, such as a ventilator. Contact a health care provider if your symptoms do not improve or if they get worse. This information is not intended to replace advice given to you by your health care provider. Make sure you discuss any questions you have with your health care provider. Document Revised: 09/19/2022 Document Reviewed: 09/19/2022 [place] Patient Education 2022 [employer]. 10/03/2023 13:16:46 Acute Bronchitis, Adult Acute Bronchitis, Adult Acute bronchitis is sudden inflammation of the main airways (bronchi) that come off the windpipe (trachea) in the lungs. The swelling causes the airways to get smaller and make more mucus than normal. This can make it hard to breathe and can cause coughing or noisy breathing (wheezing). Acute bronchitis may last several weeks. The cough may last longer. Allergies, asthma, and exposureto smoke may make the condition worse. What are the causes? This condition can be caused by germs and by substances that irritate the lungs, including: Cold and flu viruses. The most common cause of this condition is the virus that causes the common cold. Bacteria. This is less common. Breathing in substances that irritate the lungs, including: ?Smoke from cigarettes and other forms of tobacco. ?Dust and pollen. ?Fumes from household cleaning products, gases, or burned fuel. ?Indoor or outdoor air pollution. What increases the risk? The following factors may make you more likely to develop this condition: A weak body's defense system, also called the immune system. A condition that affects your lungs and breathing, such as asthma. What are the signs or symptoms? Common symptoms of this condition include: Coughing. This may bring up clear, yellow, or green mucus from your lungs (sputum). Wheezing. Runny or stuffy nose. Having too much mucus in your lungs (chest congestion). Shortness of breath. Aches and pains, including sore throat or chest. How is this diagnosed? This condition is usually diagnosed based on: Your symptoms and medical history. A physical exam. You may also have other tests, including tests to rule out other conditions, such as pneumonia. These tests include: A test of lung function. Test of a mucus sample to look for the presence of bacteria. Tests to check the oxygen level in your blood. Blood tests. Chest X-ray. How is this treated? Most cases of acute bronchitis clear up over time without treatment. Your health care provider may recommend: Drinking more fluids to help thin your mucus so it is easier to cough up. Taking inhaled medicine (inhaler) to improve air flow in and out of your lungs. Using a vaporizer or a humidifier. These are machines that add water to the air to help you breathebetter. Taking a medicine that thins mucus and clears congestion (expectorant). Taking a medicine that prevents or stops coughing (cough suppressant). It is not common to take an antibiotic medicine for this condition. Follow these instructions at home: Take gzsp-hlw-oqlyjgq and prescription medicines only as told by your health care provider. Use an inhaler, vaporizer, or humidifier as told by your health care provider. Take two teaspoons (10 mL) of honey at bedtime to lessen coughing at night. Drink enough fluid to keep your urine pale yellow. Do not use any products that contain nicotine or tobacco. These products include cigarettes, chewing tobacco, and vaping devices, such as e-cigarettes. If you need help quitting, ask your health careprovider. Get plenty of rest. Return to your normal activities as told by your health care provider. Ask your health care provider what activities are safe for you. Keep all follow-up visits. This is important. How is this prevented? To lower your risk of getting this condition again: Wash your hands often with soap and water for at least 20 seconds. If soap and water are not available, use hand phlebotomy coordinator. Avoid contact with people who have cold symptoms. Try not to touch your mouth, nose, or eyes with your hands. Avoid breathing in smoke or chemical fumes. Breathing smoke or chemical fumes will make your condition worse. Get the flu shot every year. Contact a health care provider if: Your symptoms do not improve after 2 weeks. You have trouble coughing up the mucus. Your cough keeps you awake at night. You have a fever. Get help right away if you: Cough up blood. Feel pain in your chest. Have severe shortness of breath. Faint or keep feeling like you are going to faint. Have a severe headache. Have a fever or chills that get worse. These symptoms may represent a serious problem that is an emergency. Do not wait to see if the symptoms will go away. Get medical help right away. Call your local emergency services (911 in the [place] Do not drive yourself to the hospital. Summary Acute bronchitis is inflammation of the main airways (bronchi) that come off the windpipe (trachea)in the lungs. The swelling causes the airways to get smaller and make more mucus than normal. Drinking more fluids can help thin your mucus so it is easier to cough up. Take yzzi-lgg-kywgfuc and prescription medicines only as told by your health care provider. Do not use any products that contain nicotine or tobacco. These products include cigarettes, chewing tobacco, and vaping devices, such as e-cigarettes. If you need help quitting, ask your health careprovider. Contact a health care provider if your symptoms do not improve after 2 weeks. This information is not intended to replace advice given to you by your health care provider. Make sure you discuss any questions you have with your health care provider. Document Revised: 10/23/2022 Document Reviewed: 11/13/2021 [place] Patient Education 2022 [employer]. 10/03/2023 13:16:46 Influenza, Adult Influenza, Adult Influenza, also called the flu, is a viral infection that mainly affects the respiratory tract. This includes the lungs, nose, and throat. The flu spreads easily from person to person (is contagious). It causes common cold symptoms, along with high fever and body aches. What are the causes? This condition is caused by the influenza virus. You can get the virus by: Breathing in droplets that are in the air from an infected person's cough or sneeze. Touching something that has the virus on it (has been contaminated) and then touching your mouth, nose, or eyes. What increases the risk? The following factors may make you more likely to get the flu: Not washing or sanitizing your hands often. Having close contact with many people during cold and flu season. Touching your mouth, eyes, or nose without first washing or sanitizing your hands. Not getting an annual flu shot. You may have a higher risk for the flu, including serious problems, such as a lung infection (pneumonia), if you: Are older than 65. Are . Have a weakened disease-fighting system (immune system). This includes people who have HIV or AIDS,are on chemotherapy, or are taking medicines that reduce (suppress) the immune system. Have a long-term (chronic) illness, such as heart disease, kidney disease, diabetes, or lung disease. Have a liver disorder. Are severely overweight (morbidly obese). Have anemia. Have asthma. What are the signs or symptoms? Symptoms of this condition usually begin suddenly and last 4 14 days. These may include: Fever and chills. Headaches, body aches, or muscle aches. Sore throat. Cough. Runny or stuffy (congested) nose. Chest discomfort. Poor appetite. Weakness or fatigue. Dizziness. Nausea or vomiting. How is this diagnosed? This condition may be diagnosed based on: Your symptoms and medical history. A physical exam. Swabbing your nose or throat and testing the fluid for the influenza virus. How is this treated? If the flu is diagnosed early, you can be treated with antiviral medicine that is given by mouth (orally) or through an IV. This can help reduce how severe the illness is and how long it lasts. Taking care of yourself at home can help relieve symptoms. Your health care provider may recommend: Taking dloz-cry-ycyfcfh medicines. Drinking plenty of fluids. In many cases, the flu goes away on its own. If you have severe symptoms or complications, you may be treated in a hospital. Follow these instructions at home: Activity Rest as needed and get plenty of sleep. Stay home from work or school as told by your health care provider. Unless you are visiting your health care provider, avoid leaving home until your fever has been gone for 24 hours without taking medicine. Eating and drinking Take an oral rehydration solution (ORS). This is a drink that is sold at pharmacies and retail stores. Drink enough fluid to keep your urine pale yellow. Drink clear fluids in small amounts as you are able. Clear fluids include water, ice chips, fruit juice mixed with water, and low-calorie sports drinks. Eat bland, yend-vu-ghyfew foods in small amounts as you are able. These foods include bananas, applesauce, rice, lean meats, toast, and crackers. Avoid drinking fluids that contain a lot of sugar or caffeine, such as energy drinks, regular sports drinks, and soda. Avoid alcohol. Avoid spicy or fatty foods. General instructions Take yaef-lrt-hmxodyz and prescription medicines only as told by your health care provider. Use a cool mist humidifier to add humidity to the air in your home. This can make it easier to breathe. ?When using a cool mist humidifier, clean it daily. Empty the water and replace it with clean water. Cover your mouth and nose when you cough or sneeze. Wash your hands with soap and water often and for at least 20 seconds, especially after you cough or sneeze. If soap and water are not available, use alcohol-based hand phlebotomy coordinator. Keep all follow-up visits. This is important. How is this prevented? Get an annual flu shot. This is usually available in late summer, fall, or winter. Ask your health care provider when you should get your flu shot. Avoid contact with people who are sick during cold and flu season. This is generally fall and winter. Contact a health care provider if: You develop new symptoms. You have: ?Chest pain. ?Diarrhea. ?A fever. Your cough gets worse. You produce more mucus. You feel nauseous or you vomit. Get help right away if you: Develop shortness of breath or have difficulty breathing. Have skin or nails that turn a bluish color. Have severe pain or stiffness in your neck. Develop a sudden headache or sudden pain in your face or ear. Cannot eat or drink without vomiting. These symptoms may represent a serious problem that is an emergency. Do not wait to see if the symptoms will go away. Get medical help right away. Call your local emergency services (911 in the [place] Do not drive yourself to the hospital. Summary Influenza, also called the flu, is a viral infection that primarily affects your respiratory tract. Symptoms of the flu usually begin suddenly and last 4 14 days. Getting an annual flu shot is the best way to prevent getting the flu. Stay home from work or school as told by your health care provider. Unless you are visiting your health care provider, avoid leaving home until your fever has been gone for 24 hours without taking medicine. Keep all follow-up visits. This is important. This information is not intended to replace advice given to you by your health care provider. Make sure you discuss any questions you have with your health care provider. Document Revised: 03/01/2021 Document Reviewed: 03/01/2021 [place] Patient Education 2022 [employer]. Follow Up Care 09/30/2023 16:42:57 With:Yelena MICHELLE Address: [address], [place] [address]- Business (1) When:10/12/2023 15:40:00 [facility]03-08-2024 Evaluation + Plan noteExtracted from: Title:APSO Note Author:Lorena FALCON ate:10/02/23 1. Acute hypoxic respiratory failure (J96.01: Acute respiratory failure with hypoxia) POA 85% on RA in ED -Denies home 02 use - currently on 3L -No ABG obtained in ED -COVID - neg -Supplemental 02 -Tx. as below -10/01: Desat study: no home 02 needs but HR 144 - see below 2. Acute bronchitis (J20.9: Acute bronchitis, unspecified) No wheezing this a.m. -Burst pred 40mg daily x 5 -IV azithro - 09/29 - for anti-inflamm properties -Med nebs, flutter, mucinex, supplemental 02 -Sputum cx. - pending 3. Influenza A (J10.1: Influenza due to other identified influenza virus with other respiratory manifestations) Symptoms 1-2 wks - outside of tamiflu tx. window -Supportive care - see above -See above 4. Elevated troponin (R79.89: Other specified abnormal findings of blood chemistry) Max trop 31 c/w HR of 130 range - denies CP, unclear significance - downtrending -Asa, metoprolol 5. Dehydration (E86.0: Dehydration) Resolved - pt. taking po this a.m. -1L to date - off at present -Trend labs 6. Thrombocytopenia (D69.6: Thrombocytopenia, unspecified) Baseline hgb. level - 150 -200 range - downtrending -Hold lovenox -No acute bleeding noted, hemodynamically stable -Trend labs 7. Weakness (R53.1: Weakness) Generalized weakness 2/2 above -Tx. as above -PT - OPPT 8. Atrial arrhythmia (I49.8: Other specified cardiac arrhythmias) Nursing concern for Afib HR 144 -> 12 lead ECG reviewed SA w/ 1st degree AVB and PAC -IV metoprolol x 1 dose -Resume po metoprolol 9. Chronic kidney disease (N18.9: Chronic kidney disease, unspecified) CKD stage III, Baseline Cr 1.0 -1.1 -UA - no infectious process -Renal US & PVR - if Cr worsens -Consult nephrology - if Cr worsens -Trend BMP -Avoid nephrotoxic medications as much as possible 10. Radiculopathy of lumbar region (M54.16: Radiculopathy, lumbar region) -Supportive care 11. Chronic GERD, (K21.9: Gastro-esophageal reflux disease without esophagitis)GERD (gastroesophageal reflux disease) -PPI Ordered: pantoprazole, 40 mg = 1 tab(s), Tab-DR, Oral, Daily, Routine, Start date 10/03/23 9:00:00 EST 12. History of cancer of right breast (Z85.3: Personal history of malignant neoplasm of breast) -Letrozole 13. Obesity (E66.9: Obesity, unspecified) BMI 30 -Educated on need for lifestyle modifications with goal of weight loss as obesity has a negative impact on co-morbid conditions. 14. Encounter for deep vein thrombosis (DVT) prophylaxis (Z29.9: Encounter for prophylactic measures, unspecified) -Hold lovenox 2/2 downtrending plt. count -SCDs, early ambulation Orders: azithromycin, 500 mg = 2 tab(s), Tab, Oral, Daily for 10 day(s), Stop date 10/12/23 9:08:00 EDT, NOW, Start date 10/02/23 9:09:00 EST, 10/02/23 9:09:00 EST calcium-vitamin D, 1 tab(s), Tab, Oral, BID, Routine, Start date 10/02/23 21:00:00 EST cholecalciferol, 25 mcg = 1 tab(s), Tab, Oral, Daily, Routine, Start date 10/03/23 9:00:00 EST, 10/02/23 12:02:00 EST enoxaparin, 40 mg = 0.4 mL, Injection, SubCutaneous, Daily for 30 day(s), Stop date 10/31/23 8:59:00 EDT, Routine, Start date 10/01/23 9:00:00 EST, 10/01/23 4:46:00 EST letrozole, 2.5 mg = 1 tab(s), Tab, Oral, Daily, Routine, Start date 10/03/23 9:00:00 EST, 10/02/23 12:02:00 EST metoprolol, 2.5 mg = 2.5 mL, Injection, IV Push, Once, Stop date 10/02/23 11:00:00 EST, Routine, Start date 10/02/23 11:00:00 EST, Hold for sbp 110 or less multivitamin with minerals, 1 tab(s), Tab, Oral, BID, Routine, Start date 10/02/23 21:00:00 EST potassium chloride, 20 mEq = 1 tab(s), Tab-ER, Oral, Once, Stop date 10/02/23 13:00:00 EST, Routine, Start date 10/02/23 13:00:00 EST, 10/02/23 12:51:00 EST Basic Metabolic Panel Communication Order Physician to Nursing Discharge Patient ECG 12 Lead Adult eGFR Extra Lav Tube Incentive Spirometry Oxygen Desaturation Study -Plan discussed w/ patient, nursing staff and CRM. This report was transcribed using voice recognition software. Every effort was made to ensure accuracy, however, inadvertently computerized medical appointment scheduler mistakes may be present. Extracted from: Title:APSO Note Author:Lorena FALCON ate:10/01/23 Awaiting med rec for all dx. - nrsng aware. 1. Acute hypoxic respiratory failure (J96.01: Acute respiratory failure with hypoxia) POA 85% on RA in ED -Denies home 02 use - currently on 3L -No ABG obtained in ED -COVID - neg -Supplemental 02 -Tx. as below 2. Acute bronchitis (J20.9: Acute bronchitis, unspecified) + wheezing this a.m. -Burst pred 40mg daily x 5 -IV azithro - 09/29 - for anti-inflamm properties -Med nebs, flutter, mucinex, supplemental 02 -Sputum cx. - pending 3. Influenza A (J10.1: Influenza due to other identified influenza virus with other respiratory manifestations) Symptoms 1-2 wks - outside of tamiflu tx. window -Supportive care - see above -See above 4. Elevated troponin (R79.89: Other specified abnormal findings of blood chemistry) Max trop 31 c/w HR of 130 range - denies CP, unclear significance - downtrending -Asa, -Awaiting med rec for all dx. 5. Dehydration (E86.0: Dehydration) Resolved - pt. taking po this a.m. -1L to date - off at present -Trend labs 6. Thrombocytopenia (D69.6: Thrombocytopenia, unspecified) Baseline hgb. level - 150 -200 range - downtrending -Hold lovenox -No acute bleeding noted, hemodynamically stable -Trend labs 7. Weakness (R53.1: Weakness) Generalized weakness 2/2 above -Tx. as above -PT/OT - pending 8. Atrial arrhythmia (I49.8: Other specified cardiac arrhythmias) -Awaiting med rec 9. Chronic kidney disease (N18.9: Chronic kidney disease, unspecified) CKD stage III, Baseline Cr 1.0 -1.1 -UA - no infectious process -Renal US & PVR - if Cr worsens -Consult nephrology - if Cr worsens -Trend BMP -Avoid nephrotoxic medications as much as possible 10. Radiculopathy of lumbar region (M54.16: Radiculopathy, lumbar region) -Supportive care 11. Chronic GERD (K21.9: Gastro-esophageal reflux disease without esophagitis) -PPI 12. History of cancer of right breast (Z85.3: Personal history of malignant neoplasm of breast) -Letrozole 13. Obesity (E66.9: Obesity, unspecified) BMI 30 -Educated on need for lifestyle modifications with goal of weight loss as obesity has a negative impact on co-morbid conditions. 14. Encounter for deep vein thrombosis (DVT) prophylaxis (Z29.9: Encounter for prophylactic measures, unspecified) -Hold lovenox 2/2 downtrending plt. count -SCDs, early ambulation Orders: aspirin, 81 mg = 1 tab(s), Tab-EC, Oral, Daily, Routine, Start date 10/02/23 9:00:00 EST, 10/01/23 9:08:00 EST azithromycin + Sodium Chloride 0.9% intravenous solution 250 mL, 500 mg = 1 EA, Injection, IV Piggyback, Daily, Routine, Start date 10/01/23 9:00:00 EST, 250 mL/hr, Infuse over 60 minute(s) guaifenesin, 1,200 mg = 2 tab(s), Tab-ER, Oral, BID, Routine, Start date 10/01/23 21:00:00 EST, 10/01/23 9:04:00 EST predniSONE, 40 mg = 2 tab(s), Tab, Oral, Daily for 5 day(s), Stop date 10/06/23 8:59:00 EDT, Routine, Start date 10/01/23 9:00:00 EST, 10/01/23 7:34:00 EST Below the Knee Intermittent Pneumatic Compression Device Communication Order Physician to Nursing Incentive Spirometry Physical Therapy Evaluate Patient, Develop a Plan of Care and Implement Plan Sputum Culture -Plan discussed w/ patient, nursing staff and CRM. This report was transcribed using voice recognition software. Every effort was made to ensure accuracy, however, inadvertently computerized medical appointment scheduler mistakes may be present. Extracted from: Title:Admission H & P Author:Chalo CALVERT DO Date:10/01/23 1. Acute hypoxic respiratory failure (J96.01: Acute respiratory failure with hypoxia) Secondary to below. Patient will be provided supplemental O2 will treat symptomatically for below Ordered: Initial Hospital Care/Day Moderate 55 Minutes 76211 2. Acute bronchitis (J20.9: Acute bronchitis, unspecified) Will hold on steroids for now but may reconsider if she does not have improvement in her respiratory status. She did not appear acutely distressed she did have a mild elevation in fasting blood sugar and though the chart suggest that history of diabetes she denies use of steroids theoretically could send to her weakness below but again if her respiratory status declines or does not improve on an acceptable timeframe may reconsider. For now we will continue albuterol treatments, Mucinex Ordered: guaifenesin, 1,200 mg = 2 tab(s), Tab-ER, Oral, BID, Routine, Start date 10/01/23 9:00:00 EST, 10/01/23 4:19:00 EST C-Reactive Protein Initial Hospital Care/Day Moderate 55 Minutes [id number] 3. Influenza A (J10.1: Influenza due to other identified influenza virus with other respiratory manifestations) Patient states she has been symptomatic for at least 1 if not 2 weeks. She does state 2 weeks ago that her son was real sick with a respiratory illness. She is beyond 48 to 72 hours do not feel she would benefit from Tamiflu consistent with that she has had weakness and myalgias stating she had mostly been bedridden. She has become dehydrated, she missed only mild shortness of breath note above, she had nausea with minimal vomiting Ordered: Initial Hospital Care/Day Moderate 55 Minutes [id number] 4. Weakness (R53.1: Weakness) Suspect due to dehydration in addition to acute inflammatory process associated with above. Be complete we will check thyroid function studies check CPK for weakness as well as inflammatory markers. As she recovers will consider consultation of physical and Occupational Therapy if nursing suggest her main significantly weakened. She was implying that within the past 2 days she was able to get up to go to the bathroom questioning improvement. Reported received from the emergency harbor department manager who received report from the daytime emergency harbor department manager was of weakness and cough for 2 days though when asking patient on 2 separate occasions she states she has been symptomatic for 1 if not 2 weeks. It is noted from reviewing the emergency room documents not offered during the interview that patient had a fall. CT of the head, cervical spine plain films lumbar spine demonstrated no acute traumatic injury Ordered: C-Reactive Protein Creatine Kinase Initial Hospital Care/Day Moderate 55 Minutes [id number] TSH With T4fr Reflex 5. Elevated troponin (R79.89: Other specified abnormal findings of blood chemistry) Troponin was minimally elevated but is flat. She denies any suspicious ischemic symptoms Ordered: Initial Hospital Care/Day Moderate 55 Minutes [id number] 6. Atrial arrhythmia (I49.8: Other specified cardiac arrhythmias) EKG demonstrates sinus tachycardia with supraventricular ectopic complexes in a bigeminal pattern. 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 Metoprolol was recently added as patient was having palpitations and noted to have arrhythmia when at the remote advisor office. Will monitor on telemetry as potassium is less than 4 we will give potassium supplementation. Will gently hydrate to assist with heart rate Ordered: Initial Hospital Care/Day Moderate 55 Minutes [id number] TSH With T4fr Reflex 7. Dehydration (E86.0: Dehydration) Patient is prerenal and does admit to decreased appetite I believe this is contributing to her weakness as well. Will hydrate but do so conservatively with her advanced age and elevation in BNP though I do not feel she is volume overloaded Ordered: Initial Hospital Care/Day Moderate 55 Minutes 96550 8. Chronic kidney disease (N18.9: Chronic kidney disease, unspecified) Stage III. Patient does have a GFR estimated approximately 49 to low 50s Ordered: Initial Hospital Care/Day Moderate 55 Minutes [id number] 9. Chronic GERD (K21.9: Gastro-esophageal reflux disease without esophagitis) Patient had a prior history of gastric ulcer. Awaiting reconciliation of home meds Ordered: Initial Hospital Care/Day Moderate 55 Minutes 98621 10. Radiculopathy of lumbar region (M54.16: Radiculopathy, lumbar region) No acute bony injury was noted in the emergency department Ordered: Initial Hospital Care/Day Moderate 55 Minutes [id number] 11. History of cancer of right breast (Z85.3: Personal history of malignant neoplasm of breast) Followed by oncology she had 5 cycles of radiation treatment she states the lumpectomy as well Ordered: Initial Hospital Care/Day Moderate 55 Minutes 93217 12. Obesity (E66.9: Obesity, unspecified) Ordered: Initial Hospital Care/Day Moderate 55 Minutes [id number] 13. Encounter for deep vein thrombosis (DVT) prophylaxis (Z29.9: Encounter for prophylactic measures, unspecified) Heparin subcutaneous Ordered: Initial Hospital Care/Day Moderate 55 Minutes [id number] Orders: acetaminophen, 650 mg = 2 tab(s), Tab, Oral, q6hr PRN Pain, Routine, Start date 10/01/23 4:21:00 EST, 10/01/23 4:21:00 EST enoxaparin, 30 mg = 0.3 mL, Injection, SubCutaneous, Daily for 30 day(s), Stop date 10/31/23 8:59:00 EDT, Routine, Start date 10/01/23 9:00:00 EST, 10/01/23 4:21:00 EST levalbuterol, 0.63 mg = 3 mL, Soln-Inh, Inhalation, QID, Routine, Start date 10/01/23 8:00:00 EST, 10/01/23 4:22:00 EST ondansetron, 4 mg = 2 mL, Injection, IV Push, q6hr PRN Nausea, Routine, Start date 10/01/23 4:21:00 EST, 10/01/23 4:21:00 EST Sodium Chloride 0.9% intravenous solution 1,000 mL, 1,000 mL, IV, 50 mL/hr, Routine, Start date 10/01/23 4:21:00 EST, 20 hour(s), Total volume (mL): 1,000, 88.7 kg, 2, m2 Ambulate with Assistance Basic Metabolic Panel Cardiac Monitoring CBC w/ Auto Diff Continuous Pulse Oximetry Magnesium Level Notify Provider Vital Signs Notify Provider Vital Signs Oxygen Protocol Place in Status Regular Diet Resuscitation Status - Full Vital Signs Weight Is admitted as general inpatient with the anticipation she will require greater than 2 midnight stay Addendum by Haylie CALVERT DO on October 01, 2023 04:24:58 EST Note I had been advised by patient's RN that patient is unfamiliar with the medications await conversations with family in the a.m. Extracted from: Title:ED Note Author:Edmond CHERY, Miguelangel Date: 4 1. Acute bronchitis (J20.9: Acute bronchitis, unspecified) 2. Nausea in adult (R11.0: Nausea) 3. Dehydration (E86.0: Dehydration) 4. Acute hypoxic respiratory failure (J96.01: Acute respiratory failure with hypoxia) 5. Elevated troponin (R79.89: Other specified abnormal findings of blood chemistry) 6. Weakness (R53.1: Weakness) 7. Influenza A (J10.1: Influenza due to other identified influenza virus with other respiratory manifestations) Orders: albuterol-ipratropium, 3 mL, Soln-Inh, Inhalation, Once, Stop date 09/30/23 20:40:00 EST, STAT, Start date 09/30/23 20:40:00 EST ED Physician consult Hospitalist for continued care Future Appointments Appointment Date:10/09/2023 11:00:00 AM Scheduled Provider:Yelena Osorio MD Location:[facility] Appointment Type:[place] [id number] Appointment Date:10/09/2023 01:00:00 PM Scheduled Provider: Location:.[place] [place] Appointment Type:PT 45 (FT) Appointment Date:10/12/2023 03:40:00 PM Scheduled Provider:Yelena MICHELLE MD Location:[facility] Appointment Type: Hospital Follow Up w/TCM Appointment Date:10/14/2023 09:15:00 AM Scheduled [facility]:PT Re-Eval 45 (FT) Appointment Date:10/16/2023 01:30:00 PM Scheduled Provider:[facility] [place] [facility] Type:Cardiology New Patient (FT) Appointment Date:10/22/2023 10:00:00 AM Scheduled Provider: Location:[facility] Appointment Type:Chronic Care Dietary Appointment Date:11/04/2023 09:15:00 AM Scheduled Provider: [facility] Type:PT 45 (FT) Appointment Date:11/11/2023 09:30:00 AM Scheduled Provider: Location:.[place] [place] Appointment Type:PT Re-Eval 60 (FT) Appointment Date:11/18/2023 09:30:00 AM Scheduled Provider: Location[facility] Appointment Type:PT 60 (FT) Appointment Date:11/25/2023 09:30:00 AM Scheduled Provider: [facility]:PT 60 (FT) Appointment Date:12/02/2023 09:30:00 AM Scheduled Provider: [facility] Type:PT 60 (FT) Appointment Date:12/09/2023 09:30:00 AM Scheduled Provider: [facility] Type:PT Re-Eval 60 (FT) Appointment Date:12/14/2023 01:40:00 PM Scheduled Provider:Tammy Cantu CNP Location:[facility] [place] [facility] Appointment Type:[facility] Follow Up Appointment Date:12/16/2023 11:30:00 AM Scheduled Provider: Location:.[place] [place] Appointment Type:PT 60 (FT) Appointment Date:12/23/2023 11:30:00 AM Scheduled Provider: [facility] [place] [facility] Type:PT Re-Eval 60 (FT) Appointment Date:01/14/2024 11:00:00 AM Scheduled Provider: Location:[facility] Appointment Type: Medicare Wellness Subsequent Appointment Date:02/29/2024 10:00:00 AM Scheduled Provider:Regina Nick MD Location:.ONCOLOGY Appointment Type:ONC Office Visit 30 (FT) Appointment Date:04/26/2024 10:00:00 AM Scheduled Provider:CORAZON FRANCIS PA-C Location:[facility] [place] [facility]ez[facility] Appointment Type:URO Office Visit Diagnostic Tests Pending * Sputum Culture 10/01/23 Future Scheduled Tests Laboratory* Fecal WBC Lactoferrin 09/15/23 * Giardia lamblia, Direct Detection EIA 09/15/23 * YAJAIRA and PE, Serum 02/16/24 * Immunoglobs. A/E/G/M 02/16/24 * O & P Exam, Routine 09/15/23 * Clostridium Difficile PCR 09/15/23 * Free K+L Lt Chains,Qn,S 02/16/24 * Enteric Panel by PCR 09/15/23 * CBC w/ Auto Diff 02/16/24 * Comprehensive Metabolic Panel 02/16/24 * Hepatic Function Panel 07/15/23 * Hepatic Function Panel 09/15/23 Radiology* XR Abdomen 1 View 04/21/23 * MA Mamm Diag w/CAD if perf and 3D RT 03/13/23 * MA Mamm Diag w/CAD if perf and 3D Azeem 02/16/24 [facility]02-22-2024 Hospital Discharge instructions Patient Education 09/17/2023 13:36:58 Hypertension, Adult, Srup-np-Pees Hypertension, Adult Hypertension is another name for high blood pressure. High blood pressure forces your heart to workharder to pump blood. This can cause problems over time. There are two numbers in a blood pressure reading. There is a top number (systolic) over a bottom number (diastolic). It is best to have a blood pressure that is below 120/80. What are the causes? The cause of this condition is not known. Some other conditions can lead to high blood pressure. What increases the risk? Some lifestyle factors can make you more likely to develop high blood pressure: Smoking. Not getting enough exercise or physical activity. Being overweight. Having too much fat, sugar, calories, or salt (sodium) in your diet. Drinking too much alcohol. Other risk factors include: Having any of these conditions: ?Heart disease. ?Diabetes. ? High cholesterol. ?Kidney disease. ?Obstructive sleep apnea. Having a family history of high blood pressure and high cholesterol. Age. The risk increases with age. Stress. What are the signs or symptoms? High blood pressure may not cause symptoms. Very high blood pressure (hypertensive crisis) may cause: Headache. Fast or uneven heartbeats (palpitations). Shortness of breath. Nosebleed. Vomiting or feeling like you may vomit (nauseous). Changes in how you see. Very bad chest pain. Feeling dizzy. Seizures. How is this treated? This condition is treated by making healthy lifestyle changes, such as: ?Eating healthy foods. ?Exercising more. ?Drinking less alcohol. Your doctor may prescribe medicine if lifestyle changes do not help enough and if: ?Your top number is above 130. ?Your bottom number is above 80. Your personal target blood pressure may vary. Follow these instructions at home: Eating and drinking If told, follow the DASH eating plan. To follow this plan: ?Fill one half of your plate at each meal with fruits and vegetables. ?Fill one fourth of your plate at each meal with whole grains. Whole grains include whole-wheat pasta, brown rice, and whole-grain bread. ?Eat or drink low-fat dairy products, such as skim milk or low-fat yogurt. ?Fill one fourth of your plate at each meal with low-fat (lean) proteins. Low- fat proteins include fish, chicken without skin, eggs, beans, and tofu. ?Avoid fatty meat, cured and processed meat, or chicken with skin. ?Avoid pre-made or processed food. Limit the amount of salt in your diet to less than 1,500 mg each day. Do not drink alcohol if: ?Your doctor tells you not to drink. ?You are , may be , or are planning to become . If you drink alcohol: ?Limit how much you have to: ?0 1 drink a day for women. ?0 2 drinks a day for men. ?Know how much alcohol is in your drink. In the [place] one drink equals one 12 oz bottle of beer (355 mL), one 5 oz glass of wine (148 mL), or one 1 oz glass of hard liquor (44 mL). Lifestyle Work with your doctor to stay at a healthy weight or to lose weight. Ask your doctor what the best weight is for you. Get at least 30 minutes of exercise that causes your heart to beat faster (aerobic exercise) most days of the week. This may include walking, swimming, or biking. Get at least 30 minutes of exercise that strengthens your muscles (resistance exercise) at least 3 days a week. This may include lifting weights or doing Pilates. Do not smoke or use any products that contain nicotine or tobacco. If you need help quitting, ask your doctor. Check your blood pressure at home as told by your doctor. Keep all follow-up visits. Medicines Take [id number]-dlv-[id number] and prescription medicines only as told by your doctor. Follow directions carefully. Do not skip doses of blood pressure medicine. The medicine does not work as well if you skip doses.Skipping doses also puts you at risk for problems. Ask your doctor about side effects or reactions to medicines that you should watch for. Contact a doctor if: You think you are having a reaction to the medicine you are taking. You have headaches that keep coming back. You feel dizzy. You have swelling in your ankles. You have trouble with your vision. Get help right away if: You get a very bad headache. You start to feel mixed up (confused). You feel weak or numb. You feel faint. You have very bad pain in your: ?Chest. ?Belly (abdomen). You vomit more than once. You have trouble breathing. These symptoms may be an emergency. Get help right away. Call 911. Do not wait to see if the symptoms will go away. Do not drive yourself to the hospital. Summary Hypertension is another name for high blood pressure. High blood pressure forces your heart to work harder to pump blood. For most people, a normal blood pressure is less than 120/80. Making healthy choices can help lower blood pressure. If your blood pressure does not get lower with healthy choices, you may need to take medicine. This information is not intended to replace advice given to you by your health care provider. Make sure you discuss any questions you have with your health care provider. Document Revised: 05/01/2022 Document Reviewed: 05/01/2022 [place] Patient Education 2022 [employer]. Follow Up Care 09/16/2023 16:09:46 With:WAYNE CHERY, Yelena Howard, MED Address: [place] [id number] [id number], [place] [address]- When: Unknown Comments:at regular appt but sooner if needed. [facility] 02-21-2024 Hospital Discharge instructions Patient Education 09/16/2023 14:45:31 Palpitations Palpitations Palpitations are feelings that your heartbeat is irregular or is faster than normal. It may feel like your heart is fluttering or skipping a beat. Palpitations may be caused by many things, includingsmoking, caffeine, alcohol, stress, and certain medicines or drugs. Most causes of palpitations arenot serious. However, some palpitations can be a sign of a serious problem. Further tests and a thorough medicalhistory will be done to find the cause of your palpitations. Your provider may order tests such as an ECG, labs, an echocardiogram, or an ambulatory continuous ECG monitor. Follow these instructions at home: Pay attention to any changes in your symptoms. Let your health care provider know about them. Take these actions to help manage your symptoms: Eating and drinking Follow instructions from your health care provider about eating or drinking restrictions. You may need to avoid foods and drinks that may cause palpitations. These may include: Caffeinated coffee, tea, soft drinks, and energy drinks. Chocolate. Alcohol. Diet pills. Lifestyle Take steps to reduce your stress and anxiety. Things that can help you relax include: ?Yoga. ?Mind-body activities, such as deep breathing, meditation, or using words and images to create positive thoughts (guided imagery). ?Physical activity, such as swimming, jogging, or walking. Tell your health care provider if your palpitations increase with activity. If you have chest pain or shortness of breath with activity, do not continue the activity until you are seen by your health care provider. ?Biofeedback. This is a method that helps you learn to use your mind to control things in your body, such as your heartbeat. Get plenty of rest and sleep. Keep a regular bed time. Do not use drugs, including cocaine or ecstasy. Do not use marijuana. Do not use any products that contain nicotine or tobacco. These products include cigarettes, chewing tobacco, and vaping devices, such as e-cigarettes. If you need help quitting, ask your health careprovider. General instructions Take jpfz-ptc-rogqvck and prescription medicines only as told by your health care provider. Keep all follow-up visits. This is important. These may include visits for further testing if palpitations do not go away or get worse. Contact a health care provider if: You continue to have a fast or irregular heartbeat for a long period of time. You notice that your palpitations occur more often. Get help right away if: You have chest pain or shortness of breath. You have a severe headache. You feel dizzy or you faint. These symptoms may represent a serious problem that is an emergency. Do not wait to see if the symptoms will go away. Get medical help right away. Call your local emergency services (911 in the [place] Do not drive yourself to the hospital. Summary Palpitations are feelings that your heartbeat is irregular or is faster than normal. It may feel like your heart is fluttering or skipping a beat. Palpitations may be caused by many things, including smoking, caffeine, alcohol, stress, certain medicines, and drugs. Further tests and a thorough medical history may be done to find the cause of your palpitations. Get help right away if you faint or have chest pain, shortness of breath, severe headache, or dizziness. This information is not intended to replace advice given to you by your health care provider. Make sure you discuss any questions you have with your health care provider. Document Revised: 12/04/2021 Document Reviewed: 12/04/2021 [place] Patient Education 2022 [employer]. Follow Up Care 09/16/2023 10:58:11 With:Jan Perera Address:Unknown When:09/19/2023 14:45:15 Comments:Obtain Holter monitor and follow-up with Dr. Goodwin. With:Yelena MICHELLE Address: [facility] [address] [place] [id number] [facility] (1) When:09/19/2023 14:44:50 Comments:Call the office of your primary care doctor to arrange for follow-up within the above-stated timeframe. Follow-up with your primary care doctor about this ED visit. You should review your labs, imaging, and diagnoses from this ED visit with your primary care physician. There are occasionally non-emergent findings that require additional follow-up after your ED visit. If you were prescribed medications you should discuss possible side-effects and drug interactions with your pharmacist. Call 911 or go to the nearest Emergency Department if you develop any new or worsening symptoms. [id number] immediate medical attention if you develop: worsening chest pain, new chest pain, nausea, vomiting, weakness, numbness, tingling, excessive sweating, shortness of breath, difficulty breathing, loss of motion in your arms or legs, or any new or worsening symptoms. [facility]02-21-2024 Evaluation + Plan noteExtracted from: Title:ED Note Author:Cale Hoover DO Date: Palpitations (R00.2: Palpita tions) Orders: Sodium Chloride 0.9% intravenous solution, 500 mL, Soln-IV, IV, Once, Stop date 09/16/23 11:14:00 EST, STAT, Start date 09/16/23 11:14:00 EST, 500 mL/hr, Infuse over 1, hour(s) ECG 12 Lead Adult ED Cardiac Monitoring Future Appointments Appointment Date:09/17/2023 01:00:00 PM Scheduled Provider:Yelena MICHELLE MD Location:[facility] Appointment Type: ER/Hospital Follow Up Appointment Date:09/18/2023 02:30:00 PM Scheduled Provider:[facility] [place] [facility] Type:Cardiology New Patient (FT) Appointment Date:09/23/2023 10:30:00 AM Scheduled Provider: [facility] [place] [facility] Type:PT Re-Eval 60 (FT) Appointment Date:09/30/2023 11:00:00 AM Scheduled Provider:Yelena MICHELLE MD Location:[facility] Appointment Type:FM Open Appointment Date:10/09/2023 11:00:00 AM Scheduled Provider:Yelena Osorio MD Location:[facility] Appointment Type:GS Established 15 Appointment Date:10/22/2023 10:00:00 AM Scheduled Provider: Location:[facility] Appointment Type:Chronic Care Dietary Appointment Date:12/14/2023 01:40:00 PM Scheduled Provider:Tammy Cantu CNP Location:[facility] [place] [facility] Appointment Type:BADH Follow Up Appointment Date:01/14/2024 11:00:00 AM Scheduled Provider: Location:[facility] Appointment Type:FM Medicare Wellness Subsequent Appointment Date:02/29/2024 10:00:00 AM Scheduled Provider:Regina Nick MD Location:.ONCOLOGY Appointment Type:ONC Office Visit 30 (FT) Appointment Date:04/26/2024 10:00:00 AM Scheduled Provider:CORAZON FRANCIS PA-C Location:[facility] EU Raheel Appointment Type:URO Office Visit Future Scheduled Tests Laboratory* Fecal WBC Lactoferrin 09/15/23 * HgbA1c 06/01/23 * Giardia lamblia, Direct Detection EIA 09/15/23 * YAJAIRA and PE, Serum 02/16/24 * Immunoglobs. A/E/G/M 02/16/24 * O & P Exam, Routine 09/15/23 * Clostridium Difficile PCR 09/15/23 * Free K+L Lt Chains,Qn,S 02/16/24 * Enteric Panel by PCR 09/15/23 * Vitamin D 25 Hydroxy 06/01/23 * CBC w/ Auto Diff 02/16/24 * CBC w/ Auto Diff 06/01/23 * Comprehensive Metabolic Panel 02/16/24 * Comprehensive Metabolic Panel 06/01/23 * Hepatic Function Panel 07/15/23 * Hepatic Function Panel 09/15/23 * Lipid Panel 06/01/23 Radiology* XR Abdomen 1 View 04/21/23 * MA Mamm Diag w/CAD if perf and 3D RT 03/13/23 * MA Mamm Diag w/CAD if perf and 3D Azeem 02/16/24 [facility]02-20-2024 Hospital Discharge instructions Patient Education 09/15/2023 13:59:31 Food Choices for Gastroesophageal Reflux Disease, Adult Food Choices for Gastroesophageal Reflux Disease, Adult When you have gastroesophageal reflux disease (GERD), the foods you eat and your eating habits are very important. Choosing the right foods can help ease the discomfort of GERD. Consider working witha dietitian to help you make healthy food choices. What are tips for following this plan? Reading food labels Look for foods that are low in saturated fat. Foods that have less than 5% of daily value (DV) of fat and 0 g of trans fats may help with your symptoms. Cooking Cook foods using methods other than frying. This may include baking, steaming, grilling, or broiling. These are all methods that do not need a lot of fat for cooking. To add flavor, try to use herbs that are low in spice and acidity. Meal planning Choose healthy foods that are low in fat, such as fruits, vegetables, whole grains, low-fat dairy products, lean meats, fish, and poultry. Eat frequent, small meals instead of three large meals each day. Eat your meals slowly, in a relaxed setting. Avoid bending over or lying down until 2 3 hours after eating. Limit high-fat foods such as fatty meats or fried foods. Limit your intake of fatty foods, such as oils, butter, and shortening. Avoid the following as told by your health care provider: ?Foods that cause symptoms. These may be different for different people. Keep a food diary to keep track of foods that cause symptoms. ?Alcohol. ?Drinking large amounts of liquid with meals. ?Eating meals during the 2 3 hours before bed. Lifestyle Maintain a healthy weight. Ask your health care provider what weight is healthy for you. If you need to lose weight, work with your health care provider to do so safely. Exercise for at least 30 minutes on 5 or more days each week, or as told by your health care provider. Avoid wearing clothes that fit tightly around your waist and chest. Do not use any products that contain nicotine or tobacco. These products include cigarettes, chewing tobacco, and vaping devices, such as e-cigarettes. If you need help quitting, ask your health careprovider. Sleep with the head of your bed raised. Use a wedge under the mattress or blocks under the bed frame to raise the head of the bed. Chew sugar-free gum after mealtimes. What foods should I eat? Eat a healthy, well-balanced diet of fruits, vegetables, whole grains, low-fat dairy products, leanmeats, fish, and poultry. Each person is different. Foods that may trigger symptoms in one person may not trigger any symptoms in another person. Work with your health care provider to identify foodsthat are safe for you. The items listed above may not be a complete list of recommended foods and beverages. Contact a dietitian for more information. What foods should I avoid? Limiting some of these foods may help manage the symptoms of GERD. Everyone is different. Consult adietitian or your health care provider to help you identify the exact foods to avoid, if any. Fruits Any fruits prepared with added fat. Any fruits that cause symptoms. For some people this may include citrus fruits, such as oranges, grapefruit, pineapple, and alvarez. Vegetables Deep-fried vegetables. Kittitian fries. Any vegetables prepared with added fat. Any vegetables that cause symptoms. For some people, this may include tomatoes and tomato products, chili peppers, onions and garlic, and horseradish. Grains Pastries or quick breads with added fat. Meats and other proteins High-fat meats, such as fatty beef or pork, hot dogs, ribs, ham, sausage, salami, and davis. Fried meat or protein, including fried fish and fried chicken. Nuts and nut butters, in large amounts. Dairy Whole milk and chocolate milk. Sour cream. Cream. Ice cream. Cream cheese. Milkshakes. Fats and oils Butter. Margarine. Shortening. Ghee. Beverages Coffee and tea, with or without caffeine. Carbonated beverages. Sodas. Energy drinks. Fruit juice made with acidic fruits, such as orange or grapefruit. Tomato juice. Alcoholic drinks. Sweets and desserts Chocolate and cocoa. Donuts. Seasonings and condiments Pepper. Peppermint and spearmint. Added salt. Any condiments, herbs, or seasonings that cause symptoms. For some people, this may include adames, hot sauce, or vinegar-based salad dressings. The items listed above may not be a complete list of foods and beverages to avoid. Contact a dietitian for more information. Questions to ask your health care provider Diet and lifestyle changes are usually the first steps that are taken to manage symptoms of GERD. If diet and lifestyle changes do not improve your symptoms, talk with your health care provider abouttaking medicines. Where to find more information [employer] G[employer]intestinal [employer]: aboutgerd.org Summary When you have gastroesophageal reflux disease (GERD), food and lifestyle choices may be very helpful in easing the discomfort of GERD. Eat frequent, small meals instead of three large meals each day. Eat your meals slowly, in a relaxed setting. Avoid bending over or lying down until 2 3 hours after eating. Limit high-fat foods such as fatty meats or fried foods. This information is not intended to replace advice given to you by your health care provider. Make sure you discuss any questions you have with your health care provider. Document Revised: 01/21/2021 Document Reviewed: 01/21/2021 [employer] Patient Education 2022 [employer]. Follow Up Care 07/15/2023 14:44:45 With:Tammy Cantu CNP Address: When:3 months [facility] 11-06-2023 Hospital Discharge instructions Patient Education 06/01/2023 13:35:09 Vitamin D Deficiency Vitamin D Deficiency Vitamin D deficiency is when your body does not have enough vitamin D. Vitamin D is important to your body because: It helps the body maintain calcium and phosphorus levels. These are important minerals. It plays a role in bone health. It reduces inflammation. It improves the body's defense system (immune system). If vitamin D deficiency is severe, it can cause a condition in which your bones become soft. In adults, this condition is called osteomalacia. In children, this condition is called rickets. What are the causes? This condition may be caused by: Not eating enough foods that contain vitamin D. Not getting enough natural sun exposure. Having certain digestive system diseases that make it difficult for your body to absorb vitamin D. These diseases include Crohn's disease, long-term (chronic) pancreatitis, and cystic fibrosis. Having had a surgery in which a part of the stomach or a part of the small intestine was removed. What increases the risk? You are more likely to develop this condition if you: Are an older adult. Do not spend much time outdoors. Live in a long-term care facility. Have dark skin. Take certain medicines, such as steroid medicines or certain seizure medicines. Are overweight or obese. Have chronic kidney or liver disease. What are the signs or symptoms? In mild cases of vitamin D deficiency, there may not be any symptoms. If the condition is severe, symptoms may include: Bone pain. Muscle pain. Not being able to walk normally (abnormal gait). Broken bones caused by a minor injury. Joint pain. How is this diagnosed? This condition may be diagnosed with blood tests. Imaging tests such as X-rays may also be done to look for changes in the bone. How is this treated? Treatment may include taking supplements as told by your health care provider. Your health care provider will tell you what dose is best for you. Supplements may include: Vitamin D. Calcium. Follow these instructions at home: Eating and drinking Eat foods that contain vitamin D, such as: Dairy products, cereals, or juices that have vitamin D added to them (are fortified). Check the label. Fish, such as salmon or trout. Eggs. The vitamin D is in the yolk. Mushrooms that were treated with UV light. Beef liver. The items listed above may not be a complete list of foods and beverages you can eat and drink. Contact a dietitian for more information. General instructions Take pfjk-nix-qfjqhob and prescription medicines only as told by your health care provider. Take supplements only as told by your health care provider. Get regular, safe exposure to natural sunlight. Do not use a tanning bed. Maintain a healthy weight. Lose weight if needed. Keep all follow-up visits. This is important. How is this prevented? You can get vitamin D by: Eating foods that naturally contain vitamin D. Eating or drinking products that have been fortified with vitamin D, such as cereals, juices, and dairy products, including milk. Taking a vitamin D supplement or a multivitamin that contains vitamin D. Being in the sun. Your body naturally makes vitamin D when your skin is exposed to sunlight. Your body changes the sunlight into a form of the vitamin that it can use. Contact a health care provider if: Your symptoms do not go away. You feel nauseous or you vomit. You have fewer bowel movements than usual or are constipated. Summary Vitamin D deficiency is when your body does not have enough vitamin D. Vitamin D helps to keep your bones healthy. Vitamin D deficiency is primarily treated by taking supplements. Your health care provider will suggest what dose is best for you. You can get vitamin D by eating foods that contain vitamin D, by being in the sun, and by taking a vitamin D supplement or a multivitamin that contains vitamin D. This information is not intended to replace advice given to you by your health care provider. Make sure you discuss any questions you have with your health care provider. Document Revised: 04/18/2022 Document Reviewed: 04/18/2022 [place] Patient Education 2022 [employer]. Follow Up Care 02/20/2023 12:51:52 With:WAYNE CHERY, Yelena Howard, MED Address: [facility] [address], [place] [address]- When:Within 4 Month(s) [facility] 10-30-2023 Consult note Author Roque Renee [facility] May 25, 2023 4:21pm Note Date/Time May 25, 2023 1 1:03am [facility] at [address] [address] Rad Onc Consult Note - OP Signed Patient: Jerrica Rock MR#: [id number] : 1935 Acct:[id number] Age/Sex: 87 / F Type: REG RCR Copies to: MD Regina Lua MD, MD~ Assessment & Plan (1) Breast cancer, right breast Plan: CT simulation for -partial breast irradiation, plan for 30 Garvin in 5 fractions delivered every other day. Assessment: 87-year-old female now presenting with pT2Nx invasive lobular carcinoma, grade 1, status postlumpectomy with pathology showing 2.5 cm 7 multiple foci of invasive lobular, clear margins, strongly ER/WV positive HER2 negative. I have asked to place her on the list for tumor board. It appears Oncotype DX was sentand returned to 8. She has been recommended for endocrine therapy. We had a long discussion with she and her son who accompanies her today. Patient was counseled on her favorable histology we discussed the importance of endocrine therapy. We reviewed the results of the PRIME II trial which looked at women with less than 3 cm ER positive tumors showing an ipsilateral breast recurrence rate of approximately 4% without radiation and 1% with radiation. Patient is a candidate for partial breast radiation to a dose of 30 Garvin in 5 fractions. She is uncertain of her tolerance of endocrine therapy and is overall quite healthy with expected longevity of greater than 10 years. Despiteoffering endocrine therapy alone she would like to proceed with radiation. I provided a general overview of radiation treatment planning and delivery. We discussed the need for immobilization and CT simulation. Short and long-term side effects were reviewed in detail and her questions were answered. She was consented to receive care. HPI Date of Service: 05/25/23 HPI: 87-year-old female who presented with an abnormal screening mammogram. February 05, 2023 screening mammogram showed a focal asymmetry upper outer quadrant of the right breast. February 19, 2023 diagnostic mammogram 5 mm diameter nodular mass with irregular margins and surrounding architectural distortion in the posterior lateral right breast. There were no calcifications noted. Ultrasound showed at 9:00 of focalhypoechoic lesion with ill-defined margin measuring 6 mm. This was corresponding to the mammographic abnormality. March 03, 2023 patient was evaluated by general surgery and scheduled for core biopsy. 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 March 05, 2023 patient underwent a core biopsy of the upper outer quadrant right breast which showed invasive lobular carcinoma grade 1 with atypical lobular hyperplasia. Strongly ER/WV positive HER2 1+ Ki-67 less than 1%. April 22, 2023 she underwent a right breast lumpectomy confirming grade 1 invasive lobular carcinoma. Primary measured 2.5 cm. There were least 10 foci oftumor. Multifocal tumor distributed present in 7 of 12 tissue blocks. Inked margins of excision free of tumor. pT2Nx Oncotype returned 8 Patient presents today with her son. She has been offered endocrine therapy with medical oncology. [facility] - Medical History Medical History: Medical History (Last Reviewed 07/11/20 @ 19:36 by AMELIA Boyle) Frequent loose stools Gastric ulcer Macular degeneration Osteoarthritis Spinal stenosis - Surgical History Surgical History: Surgical History (Last Reviewed 07/11/20 @ 19:36 by AMELIA Boyle) H/O colonoscopy - Family History Family History: Family History (Last Reviewed 07/11/20 @ 19:36 by AMELIA Boyle) Brother COPD (chronic obstructive pulmonary disease) Heart problem Mother COPD (chronic obstructive pulmonary disease) Brother Heart problem Father Brain tumor Grandparent Diabetes Family/Other Diabetes - Social History Smoking Status: Never smoker Substance Use Type: None Substance Abuse Comment: 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 Social History Comments: Son Aly currently living with pt to assist with pre and post op Home Medications & Allergies Allergies No Known Allergies Allergy (Verified 06/25/20 13:57) Home Medications Areds 2 1 tab PO BID Macular Degeneration 06/25/20 [History Confirmed 07/10/20] aspirin 81 mg tablet,delayed release 81 mg PO BID 20 days #40 tabs 07/17/20 [Rx] calcium carbonate 500 mg-vitamin D3 5 mcg (200 unit) tablet (Oyster Shell Calcium-Vitamin D3) 1 tab PO DAILY 30 days #30 tabs 07/17/20 [Rx] multivitamin with folic acid 400 mcg tablet (Thera) 1 tab PO DAILY 30 days #30 tabs 07/17/20 [Rx] oxycodone-acetaminophen 5 mg-325 mg tablet 1 tab PO Q6H PRN pain 7-10 7 days #28 tabs 07/17/20 [Rx] mecobalamin (vitamin B12) 1,000 mcg chewable tablet (B12 Active) mcg PO 05/25/23 [History] naproxen 500 mg tablet mg 05/25/23 [History] Subjective ROS: I reviewed the 12-point Review of Systems with the patient as per our standard questionnaire. Objective Pain: 0/10 Karnofsky Performance Scale: 90%: Can perform normal activity, minor signs of disease Physical Exam: Physical exam: KPS 90 General: Alert and oriented, no acute distress. HEENT: Normocephalic, extraocular movements intact Chest: Normal work of breathing on room air Breast: Treated breast shows surgical incisions healing well. No palpable mass or abnormality. Contralateral breast within normal limits. Lymph: No palpable cervical, supraclavicular, axillary lymphadenopathy bilaterally. Abdomen: Nonacute MSK: Extremities within normal limits Dictated By: Roque Renee MD DD/ [id number] Signed By: <Electronically signed by Roque Renee MD> 05/25/23 1621 [facility] Work Phone: [phone]) 382-484610-09-2023 Hospital Discharge instructions Follow Up Care 05/04/2023 15:32:33 With:Regina Nick Address: [facility] [facility] [address] [place] [phone] Business (1) When: Unknown Comments:start Calcium 500 mg bid and Vitamin D 2000 units daily now.Start Femara 2.5 mg once daily for 5 years.LFTs about 08/10/2023.RTC in 8 weeks for above results. [facility]09-19-2023 Hospital Discharge instructions Patient Education 04/14/2023 09:07:30 Fecal Incontinence Fecal Incontinence Fecal incontinence, also called accidental bowel leakage, is not being able to control your bowels.This condition happens because the nerves or muscles around the anus do not work the way they should. This affects their ability to hold stool (feces). What are the causes? This condition may be caused by: Damage to the muscles at the end of the rectum (sphincter). Damage to the nerves that control bowel movements. Diarrhea. Chronic constipation. Pelvic floor dysfunction. This means the muscles in the pelvis do not work well. Loss of bowel storage capacity. This occurs when the rectum can no longer stretch in size in order to store feces. Inflammatory bowel disease (IBD), such as Crohn's disease. Irritable bowel syndrome (IBS). What increases the risk? You are more likely to develop this condition if you: Were born with bowels or a pelvis that did not form correctly. Have had rectal surgery. Have had radiation treatment for certain cancers. Have been , had a vaginal delivery, or had surgery that damaged the pelvic floor muscles. Had a complicated childbirth, spinal cord injury, or other trauma that caused nerve damage. Have a condition that can affect nerve function, such as diabetes, Parkinson's disease, or multiplesclerosis. Have a condition where the rectum drops down into the anus or vagina (prolapse). Are 65 years of age or older. What are the signs or symptoms? The main symptom of this condition is not being able to control your bowels. You also might not be able to get to the bathroom before a bowel movement. How is this diagnosed? This condition is diagnosed with a medical history and physical exam. You may also have other tests, including: Blood tests. Urine tests. A rectal exam. Ultrasound. MRI. Colonoscopy. This is an exam that looks at your large intestine (colon). Anal manometry. This is a test that measures the strength of the anal sphincter. Anal electromyogram (EMG). This is a test that uses small electrodes to check for nerve damage. How is this treated? Treatment for this condition depends on the cause and severity. Treatment may also focus on addressing any underlying causes of this condition. Treatment may include: Medicines. This may include medicines to: ?Prevent diarrhea. ?Help with constipation (bulk-forming laxatives). ?Treat any underlying conditions. Biofeedback therapy. This can help to retrain muscles that are affected. Fiber supplements. These can help manage your bowel movements. Nerve stimulation. Injectable gel to promote tissue growth and better muscle control. Surgery. You may need: ?Sphincter repair surgery. ?Diversion surgery. This procedure lets feces pass out of your body through a hole in your abdomen. Follow these instructions at home: Eating and drinking Follow instructions from your health care provider about any eating or drinking restrictions. ?Work with a dietitian to come up with a healthy diet that will help you avoid the foods that can make your condition worse. ?Keep a diet diary to find out which foods or drinks could be making your condition worse. Drink enough fluid to keep your urine pale yellow. Lifestyle Do not use any products that contain nicotine or tobacco, such as cigarettes and e-cigarettes. If you need help quitting, ask your health care provider. This may help your condition. If you are overweight, talk with your health care provider about how to safely lose weight. This may help your condition. Increase your physical activity as told by your health care provider. This may help your condition.Always talk with your health care provider before starting a new exercise program. Carry a change of clothes and supplies to clean up quickly if you have an episode of fecal incontinence. Consider joining a fecal incontinence support group. You can find a support group online or in yourlocal community. General instructions Take qlcu-knl-tcaibwz and prescription medicines only as told by your health care provider. This includes any supplements. Apply a moisture barrier, such as petroleum jelly, to your rectum. This protects the skin from irritation caused by ongoing leaking or diarrhea. Tell your health care provider if you are upset or depressed about your condition. Keep all follow-up visits as told by your health care provider. This is important. Where to find more information [employer] Gastrointestinal Disorders: iffgd.org [employer]: patients.gi.org Contact a health care provider if: You have a fever. You have redness, swelling, or pain around your rectum. Your pain is getting worse or you lose feeling in your rectal area. You have blood in your stool. You feel sad or hopeless. You avoid social or work situations. Get help right away if: You stop having bowel movements. You cannot eat or drink without vomiting. You have rectal bleeding that does not stop. You have severe pain that is getting worse. You have symptoms of dehydration, including: ?Sleepiness or fatigue. ?Producing little or no urine, tears, or sweat. ?Dizziness. ?Dry mouth. ?Unusual irritability. ?Headache. ?Inability to think clearly. Summary Fecal incontinence, also called accidental bowel leakage, is not being able to control your bowels.This condition happens because the nerves or muscles around the anus do not work the way they should. Treatment varies depending on the cause and severity of your condition. Treatment may also focus onaddressing any underlying causes of this condition. Follow instructions from your health care provider about any eating or drinking restrictions, lifestyle changes, and skin care. Take mbux-wyf-dzpcrdf and prescription medicines only as told by your health care provider. This includes any supplements. Tell your health care provider if your symptoms worsen or if you are upset or depressed about your condition. This information is not intended to replace advice given to you by your health care provider. Make sure you discuss any questions you have with your health care provider. Document Revised: 01/21/2022 Document Reviewed: 01/22/2022 [place] Patient Education 2022 [employer]. Follow Up Care 12/25/2022 11:27:18 With:Tammy Cantu CNP Address: When:3 months [facility] 08-01-2023 Hospital Discharge instructions Follow Up Care 02/24/2023 16:24:50 With:Regina Nick Address: [facility] [address] [place] [address] [phone] Business (1) When: Unknown Comments:Patient saw general surgery this morning and will undergo right breast core biopsy on March 05, 2023.We will obtain a skeletal bone survey and also obtain free light chains and serum protein electrophoresis for M protein measurement.Return in 2 weeks for the results. [facility]07-28-2023 Hospital Discharge instructions Patient Education 02/20/2023 12:46:50 Gastroesophageal Reflux Disease, Adult, Zftm-ld-Cest Gastroesophageal Reflux Disease, Adult Gastroesophageal reflux (AKYLA) happens when acid from the stomach flows up into the tube that connects the mouth and the stomach (esophagus). Normally, food travels down the esophagus and stays in thestomach to be digested. With KAYLA, food and stomach acid sometimes move back up into the esophagus. You may have a disease called gastroesophageal reflux disease (GERD) if the reflux: Happens often. Causes frequent or very bad symptoms. Causes problems such as damage to the esophagus. When this happens, the esophagus becomes sore and swollen. Over time, GERD can make small holes (ulcers) in the lining of the esophagus. What are the causes? This condition is caused by a problem with the muscle between the esophagus and the stomach. When this muscle is weak or not normal, it does not close properly to keep food and acid from coming back up from the stomach. The muscle can be weak because of: Tobacco use. . Having a certain type of hernia (hiatal hernia). Alcohol use. Certain foods and drinks, such as coffee, chocolate, onions, and peppermint. What increases the risk? Being overweight. Having a disease that affects your connective tissue. Taking NSAIDs, such a ibuprofen. What are the signs or symptoms? Heartburn. Difficult or painful swallowing. The feeling of having a lump in the throat. A bitter taste in the mouth. Bad breath. Having a lot of saliva. Having an upset or bloated stomach. Burping. Chest pain. Different conditions can cause chest pain. Make sure you see your doctor if you have chest pain. Shortness of breath or wheezing. A long-term cough or a cough at night. Wearing away of the surface of teeth (tooth enamel). Weight loss. How is this treated? Making changes to your diet. Taking medicine. Having surgery. Treatment will depend on how bad your symptoms are. Follow these instructions at home: Eating and drinking Follow a diet as told by your doctor. You may need to avoid foods and drinks such as: ?Coffee and tea, with or without caffeine. ?Drinks that contain alcohol. ?Energy drinks and sports drinks. ?Bubbly (carbonated) drinks or sodas. ?Chocolate and cocoa. ?Peppermint and mint flavorings. ?Garlic and onions. ?Horseradish. ?Spicy and acidic foods. These include peppers, chili powder, adames powder, vinegar, hot sauces, and BBQ sauce. ?[place] fruit juices and citrus fruits, such as oranges, alvarez, and limes. ?Tomato-based foods. These include red sauce, chili, salsa, and pizza with red sauce. ?Fried and fatty foods. These include donuts, [place] fries, potato chips, and high-fat dressings. ?High-fat meats. These include hot dogs, rib eye steak, sausage, ham, and davis. ?High-fat dairy items, such as whole milk, butter, and cream cheese. Eat small meals often. Avoid eating large meals. Avoid drinking large amounts of liquid with your meals. Avoid eating meals during the 2 3 hours before bedtime. Avoid lying down right after you eat. Do not exercise right after you eat. Lifestyle Do not smoke or use any products that contain nicotine or tobacco. If you need help quitting, ask your doctor. Try to lower your stress. If you need help doing this, ask your doctor. If you are overweight, lose an amount of weight that is healthy for you. Ask your doctor about a safe weight loss goal. General instructions Pay attention to any changes in your symptoms. Take gzxh-meo-lsrplcj and prescription medicines only as told by your doctor. Do not take aspirin, ibuprofen, or other NSAIDs unless your doctor says it is okay. Wear loose clothes. Do not wear anything tight around your waist. Raise (elevate) the head of your bed about 6 inches (15 cm). You may need to use a wedge to do this. Avoid bending over if this makes your symptoms worse. Keep all follow-up visits. Contact a doctor if: You have new symptoms. You lose weight and you do not know why. You have trouble swallowing or it hurts to swallow. You have wheezing or a cough that keeps happening. You have a hoarse voice. Your symptoms do not get better with treatment. Get help right away if: You have sudden pain in your arms, neck, jaw, teeth, or back. You suddenly feel sweaty, dizzy, or light-headed. You have chest pain or shortness of breath. You vomit and the vomit is green, yellow, or black, or it looks like blood or coffee grounds. You faint. Your poop (stool) is red, bloody, or black. You cannot swallow, drink, or eat. These symptoms may represent a serious problem that is an emergency. Do not wait to see if the symptoms will go away. Get medical help right away. Call your local emergency services (911 in the [place] Do not drive yourself to the hospital. Summary If a person has gastroesophageal reflux disease (GERD), food and stomach acid move back up into theesophagus and cause symptoms or problems such as damage to the esophagus. Treatment will depend on how bad your symptoms are. Follow a diet as told by your doctor. Take all medicines only as told by your doctor. This information is not intended to replace advice given to you by your health care provider. Make sure you discuss any questions you have with your health care provider. Document Revised: 01/21/2021 Document Reviewed: 01/21/2021 [place] Patient Education 2022 [employer]. Follow Up Care 10/21/2022 12:25:15 With:WAYNE CHERY, Yelena Howard, MED Address: [address] [place] [address]- When:Within 4 Month(s) [facility] 06-20-2023 Hospital Discharge instructions Patient Education 01/13/2023 14:00:01 Hyperglycemia Hyperglycemia Hyperglycemia occurs when the level of sugar (glucose) in the blood is too high. Glucose is a type of sugar that provides the body's main source of energy. Certain hormones (insulin and glucagon) control the level of glucose in the blood. Insulin lowers blood glucose, and glucagon increases blood glucose. Hyperglycemia can result from not having enough insulin in the bloodstream, or from the bodynot responding normally to insulin. Hyperglycemia occurs most often in people who have diabetes (diabetes mellitus), but it can happen in people who do not have diabetes. It can develop quickly, and it can be life-threatening if it causes you to become severely dehydrated (diabetic ketoacidosis or hyperglycemic hyperosmolar state). Severe hyperglycemia is a medical emergency. For most people with diabetes, a blood glucose level above 240 mg/dL is considered hyperglycemia. What are the causes? If you have diabetes, hyperglycemia may be caused by: Medicines that increase blood glucose or affect your diabetes control. Getting less physical activity. Eating more than planned. Being sick or injured, having an infection, or having surgery. Stress. Not giving yourself enough insulin (if you are taking insulin). If you have undiagnosed diabetes, this may be the reason you have hyperglycemia. If you do not have diabetes, hyperglycemia may be caused by: Certain medicines, including: ?Steroid medicines. ?Beta-blockers. ?Epinephrine. ?Thiazide diuretics. Stress. Having a serious illness, an infection, or surgery. Diseases of the pancreas. What increases the risk? Hyperglycemia is more likely to develop in people who have risk factors for diabetes, such as: Having a family member with diabetes. Certain conditions in which the body's disease-fighting system (immune system) attacks itself (autoimmune disorders). Being overweight or obese. Having an inactive (sedentary) lifestyle. Having been diagnosed with insulin resistance. Having a history of prediabetes, gestational diabetes, or polycystic ovarian syndrome (PCOS). What are the signs or symptoms? Hyperglycemia may not cause any symptoms. If you do have symptoms, they may include: Increased thirst. Needing to urinate more often than usual. Hunger. Feeling very tired. Blurry vision. Other symptoms may develop if hyperglycemia gets worse, such as: Dry mouth. Abdominal pain. Loss of appetite. Fruity-smelling breath. Weakness. Unexpected weight loss. Tingling or numbness in the hands or feet. Headache. Cuts or bruises that are slow to heal. How is this diagnosed? Hyperglycemia is diagnosed with a blood test to measure your blood glucose level. This blood test is usually done while you are having symptoms. Your health care provider may also do a physical exam and review your medical history. You may have more tests to determine the cause of your hyperglycemia, such as: A fasting blood glucose (FBG) test. You will not be allowed to eat (you will fast) for at least 8 hours before a blood sample is taken. An A1C blood test. This provides information about blood glucose control over the previous 2 3 months. An oral glucose tolerance test (OGTT). This measures your blood glucose at two times: ?After fasting. This is your baseline blood glucose level. ?2 hours after drinking a beverage that contains glucose. How is this treated? Treatment depends on the cause of your hyperglycemia. Treatment may include: Taking medicine to regulate your blood glucose levels. If you take insulin or other diabetes medicines, your medicine or dosage may be adjusted. Lifestyle changes, such as exercising more, eating healthier foods, or losing weight. Treating an illness or infection. Checking your blood glucose more often. Stopping or reducing steroid medicines. If your hyperglycemia becomes severe and it results in diabetic ketoacidosis or hyperglycemic hyperosmolar state, you must be hospitalized and given IV fluids and IV insulin. Follow these instructions at home: General instructions Take sbbq-xzv-eqiajux and prescription medicines only as told by your health care provider. Do not use any products that contain nicotine or tobacco. These products include cigarettes, chewing tobacco, and vaping devices, such as e-cigarettes. If you need help quitting, ask your health careprovider. If you drink alcohol: ?Limit how much you have to: ?0 1 drink a day for women who are not . ?0 2 drinks a day for men. ?Know how much alcohol is in a drink. In the [place] one drink equals one 12 oz bottle of beer (355 mL), one 5 oz glass of wine (148 mL), or one 1 oz glass of hard liquor (44 mL). Learn to manage stress. If you need help with this, ask your health care provider. Do exercises as told by your health care provider. Keep all follow-up visits. This is important. Eating and drinking Maintain a healthy weight. Stay hydrated, especially when you exercise, get sick, or spend time in hot temperatures. Drink enough fluid to keep your urine pale yellow. If you have diabetes: Know the symptoms of hyperglycemia. Follow your diabetes management plan as told by your health care provider. Make sure you: ?Take your insulin and medicines as told. ?Follow your exercise plan. ?Follow your meal plan. Eat on time, and do not skip meals. ?Check your blood glucose as often as told. Make sure to check your blood glucose before and after exercise. If you exercise longer or in a different way, check your blood glucose more often. ?Follow your sick day plan whenever you cannot eat or drink normally. Make this plan in advance with your health care provider. Share your diabetes management plan with people in your workplace, school, and household. Check your urine for ketones when you are ill and as told by your health care provider. Carry a medical alert card or wear medical alert jewelry. Where to find more information [place] [employer]: www.diabetes.org Contact a health care provider if: Your blood glucose is at or above 240 mg/dL (13.3 mmol/L) for 2 days in a row. You have problems keeping your blood glucose in your target range. You have frequent episodes of hyperglycemia. You have signs of illness, such as nausea, vomiting, or fever. Get help right away if: Your blood glucose monitor reads high even when you are taking insulin. You have trouble breathing. You have a change in how you think, feel, or act (mental status). You have nausea or vomiting that does not go away. These symptoms may represent a serious problem that is an emergency. Do not wait to see if the symptoms will go away. Get medical help right away. Call your local emergency services (911 in the [place] Do not drive yourself to the hospital. Summary Hyperglycemia occurs when the level of sugar (glucose) in the blood is too high. Hyperglycemia can happen with or without diabetes, and severe hyperglycemia can be life-threatening. Hyperglycemia is diagnosed with a blood test to measure your blood glucose level. This blood test is usually done while you are having symptoms. Your health care provider may also do a physical exam and review your medical history. If you have diabetes, follow your diabetes management plan as told by your health care provider. Contact your health care provider if you have problems keeping your blood glucose in your target range. This information is not intended to replace advice given to you by your health care provider. Make sure you discuss any questions you have with your health care provider. Document Revised: 04/26/2021 Document Reviewed: 04/26/2021 [place] Patient Education 2022 [employer]. 01/13/2023 13:59:45 Understanding Your Risk for Falls Understanding Your Risk for Falls Each year, millions of people have serious injuries from falls. It is important to understand your risk for falling. Talk with your health care provider about your risk and what you can do to lower it. There are actions you can take at home to lower your risk and prevent falls. If you do have a serious fall, make sure to tell your health care provider. Falling once raises your risk of falling again. How can falls affect me? Serious injuries from falls are common. These include: Broken bones, such as hip fractures. Head injuries, such as traumatic brain injuries (TBI) or concussion. A fear of falling can cause you to avoid activities and stay at home. This can make your muscles weaker and actually raise your risk for a fall. What can increase my risk? There are a number of risk factors that increase your risk for falling. The more risk factors you have, the higher your risk of falling. Serious injuries from a fall happen most often to people olderthan age 65. Children and young adults ages 15 29 are also at higher risk. Common risk factors include: Weakness in the lower body. Lack (deficiency) of vitamin D. Being generally weak or confused due to long-term (chronic) illness. Dizziness or balance problems. Poor vision. Medicines that cause dizziness or drowsiness. These can include medicines for your blood pressure, heart, anxiety, insomnia, or edema, as well as pain medicines and muscle relaxants. Other risk factors include: Drinking alcohol. Having had a fall in the past. Having depression. Having foot pain or wearing improper footwear. Working at a dangerous job. Having any of the following in your home: ?Tripping hazards, such as floor clutter or loose rugs. ?Poor lighting. ?Pets. Having dementia or memory loss. What actions can I take to lower my risk of falling? Physical activity Maintain physical fitness. Do strength and balance exercises. Consider taking a regular class to build strength and balance. Yoga and govind chi are good options. Vision Have your eyes checked every year and your vision prescription updated as needed. Walking aids and footwear Wear nonskid shoes. Do not wear high heels. Do not walk around the house in socks or slippers. Use a cane or walker as told by your health care provider. Home safety Attach secure railings on both sides of your stairs. Install grab bars for your tub, shower, and toilet. Use a bath mat in your tub or shower. Use good lighting in all rooms. Keep a flashlight near your bed. Make sure there is a clear path from your bed to the bathroom. Use night-lights. Do not use throw rugs. Make sure all carpeting is taped or tacked down securely. Remove all clutter from walkways and stairways, including extension cords. Repair uneven or broken steps. Avoid walking on icy or slippery surfaces. Walk on the grass instead of on icy or slick sidewalks. Use ice melt to get rid of ice on walkways. Use a cordless phone. Questions to ask your health care provider Can you help me check my risk for a fall? Do any of my medicines make me more likely to fall? Should I take a vitamin D supplement? What exercises can I do to improve my strength and balance? Should I make an appointment to have my vision checked? Do I need a bone density test to check for weak bones or osteoporosis? Would it help to use a cane or a walker? Where to find more information Centers for Disease Control and Prevention, [employer]: www.cdc.gov Community-Based Fall Prevention Programs: www.cdc.gov [employer]: www.denys.nih.gov Contact a health care provider if: You fall at home. You are afraid of falling at home. You feel weak, drowsy, or dizzy. Summary Serious injuries from a fall happen most often to people older than age 65. Children and young adults ages 15 29 are also at higher risk. Talk with your health care provider about your risks for falling and how to lower those risks. Taking certain precautions at home can lower your risk for falling. If you fall, always tell your health care provider. This information is not intended to replace advice given to you by your health care provider. Make sure you discuss any questions you have with your health care provider. Document Revised: 02/13/2021 Document Reviewed: 02/13/2021 [place] Patient Education 2022 [employer]. 01/13/2023 13:59:34 DASH Eating Plan DASH Eating Plan DASH stands for Dietary Approaches to Stop Hypertension. The DASH eating plan is a healthy eating plan that has been shown to: Reduce high blood pressure (hypertension). Reduce your risk for type 2 diabetes, heart disease, and stroke. Help with weight loss. What are tips for following this plan? Reading food labels Check food labels for the amount of salt (sodium) per serving. Choose foods with less than 5 percent of the Daily Value of sodium. Generally, foods with less than 300 milligrams (mg) of sodium per serving fit into this eating plan. To find whole grains, look for the word whole as the first word in the ingredient list. Shopping Buy products labeled as low-sodium or no salt added. Buy fresh foods. Avoid canned foods and pre-made or frozen meals. Cooking Avoid adding salt when cooking. Use salt-free seasonings or herbs instead of table salt or sea salt. Check with your health care provider or pharmacist before using salt substitutes. Do not grace foods. Cook foods using healthy methods such as baking, boiling, grilling, roasting, andbroiling instead. Cook with heart-healthy oils, such as olive, canola, avocado, soybean, or sunflower oil. Meal planning Eat a balanced diet that includes: ?4 or more servings of fruits and 4 or more servings of vegetables each day. Try to fill one-half of your plate with fruits and vegetables. ?6 8 servings of whole grains each day. ?Less than 6 oz (170 g) of lean meat, poultry, or fish each day. A 3-oz (85-g) serving of meat is about the same size as a deck of cards. One egg equals 1 oz (28 g). ?2 3 servings of low-fat dairy each day. One serving is 1 cup (237 mL). ?1 serving of nuts, seeds, or beans 5 times each week. ?2 3 servings of heart-healthy fats. Healthy fats called omega-3 fatty acids are found in foods such as walnuts, flaxseeds, fortified milks, and eggs. These fats are also found in cold-water fish, such as sardines, salmon, and mackerel. Limit how much you eat of: ?Canned or prepackaged foods. ?Food that is high in trans fat, such as some fried foods. ?Food that is high in saturated fat, such as fatty meat. ?Desserts and other sweets, sugary drinks, and other foods with added sugar. ?Full-fat dairy products. Do not salt foods before eating. Do not eat more than 4 egg yolks a week. Try to eat at least 2 vegetarian meals a week. Eat more home-cooked food and less restaurant, buffet, and fast food. Lifestyle When eating at a restaurant, ask that your food be prepared with less salt or no salt, if possible. If you drink alcohol: ?Limit how much you use to: ?0 1 drink a day for women who are not . ?0 2 drinks a day for men. ?Be aware of how much alcohol is in your drink. In the [place] one drink equals one 12 oz bottle of beer (355 mL), one 5 oz glass of wine (148 mL), or one 1 oz glass of hard liquor (44 mL). General information Avoid eating more than 2,300 mg of salt a day. If you have hypertension, you may need to reduce your sodium intake to 1,500 mg a day. Work with your health care provider to maintain a healthy body weight or to lose weight. Ask what an ideal weight is for you. Get at least 30 minutes of exercise that causes your heart to beat faster (aerobic exercise) most days of the week. Activities may include walking, swimming, or biking. Work with your health care provider or dietitian to adjust your eating plan to your individual calorie needs. What foods should I eat? Fruits All fresh, dried, or frozen fruit. Canned fruit in natural juice (without added sugar). Vegetables Fresh or frozen vegetables (raw, steamed, roasted, or grilled). Low-sodium or reduced-sodium tomatoand vegetable juice. Low-sodium or reduced-sodium tomato sauce and tomato paste. Low-sodium or reduced-sodium canned vegetables. Grains Whole-grain or whole-wheat bread. Whole-grain or whole-wheat pasta. Brown rice. Oatmeal. Quinoa. Bulgur. Whole-grain and low-sodium cereals. Aaliyah bread. Low- fat, low-sodium crackers. Whole-wheat flour tortillas. Meats and other proteins Skinless chicken or turkey. Ground chicken or turkey. Pork with fat trimmed off. Fish and seafood. Egg whites. Dried beans, peas, or lentils. Unsalted nuts, nut butters, and seeds. Unsalted canned beans. Lean cuts of beef with fat trimmed off. Low-sodium, lean precooked or cured meat, such as sausages or meat loaves. Dairy Low-fat (1%) or fat-free (skim) milk. Reduced-fat, low-fat, or fat-free cheeses. Nonfat, low-sodiumricotta or cottage cheese. Low-fat or nonfat yogurt. Low-fat, low-sodium cheese. Fats and oils Soft margarine without trans fats. Vegetable oil. Reduced-fat, low-fat, or light mayonnaise and salad dressings (reduced-sodium). Canola, safflower, olive, avocado, soybean, and sunflower oils. Avocado. Seasonings and condiments Herbs. Spices. Seasoning mixes without salt. Other foods Unsalted popcorn and pretzels. Fat-free sweets. The items listed above may not be a complete list of foods and beverages you can eat. Contact a dietitian for more information. What foods should I avoid? Fruits Canned fruit in a light or heavy syrup. Fried fruit. Fruit in cream or butter sauce. Vegetables Creamed or fried vegetables. Vegetables in a cheese sauce. Regular canned vegetables (not low-sodium or reduced-sodium). Regular canned tomato sauce and paste (not low-sodium or reduced-sodium). Regular tomato and vegetable juice (not low-sodium or reduced-sodium). Pickles. Olives. Grains Baked goods made with fat, such as croissants, muffins, or some breads. Dry pasta or rice meal packs. Meats and other proteins Fatty cuts of meat. Ribs. Fried meat. Davis. Bologna, salami, and other precooked or cured meats, such as sausages or meat loaves. Fat from the back of a pig (fatback). Bratwurst. Salted nuts and seeds. Canned beans with added salt. Canned or smoked fish. Whole eggs or egg yolks. Chicken or turkey with skin. Dairy Whole or 2% milk, cream, and utln-dcx-rheo. Whole or full-fat cream cheese. Whole-fat or sweetened yogurt. Full-fat cheese. Nondairy creamers. Whipped toppings. Processed cheese and cheese spreads. Fats and oils Butter. Stick margarine. Lard. Shortening. Ghee. Davis fat. Tropical oils, such as coconut, palm kernel, or palm oil. Seasonings and condiments Onion salt, garlic salt, seasoned salt, table salt, and sea salt. Worcestershire sauce. Tartar sauce. Barbecue sauce. Teriyaki sauce. Soy sauce, including reduced-sodium. Steak sauce. Canned and packaged gravies. Fish sauce. Oyster sauce. Cocktail sauce. Store-bought horseradish. Ketchup. Mustard. Meat flavorings and tenderizers. Bouillon cubes. Hot sauces. Pre-made or packaged marinades. Pre-made or packaged taco seasonings. Relishes. Regular salad dressings. Other foods Salted popcorn and pretzels. The items listed above may not be a complete list of foods and beverages you should avoid. Contact a dietitian for more information. Where to find more information National Heart, Lung, and Blood Prole: www.nhlbi.nih.gov [place] [employer]: www.heart.org Academy of Nutrition and Dietetics: www.eatright.org National Kidney Foundation: www.kidney.org Summary The DASH eating plan is a healthy eating plan that has been shown to reduce high blood pressure (hypertension). It may also reduce your risk for type 2 diabetes, heart disease, and stroke. When on the DASH eating plan, aim to eat more fresh fruits and vegetables, whole grains, lean proteins, low-fat dairy, and heart-healthy fats. With the DASH eating plan, you should limit salt (sodium) intake to 2,300 mg a day. If you have hypertension, you may need to reduce your sodium intake to 1,500 mg a day. Work with your health care provider or dietitian to adjust your eating plan to your individual calorie needs. This information is not intended to replace advice given to you by your health care provider. Make sure you discuss any questions you have with your health care provider. Document Revised: 06/15/2020 Document Reviewed: 06/15/2020 [place] Patient Education 2022 [employer]. 01/13/2023 13:59:31 BMI for Adults BMI for Adults What is BMI? Body mass index (BMI) is a number that is calculated from a person's weight and height. BMI can help estimate how much of a person's weight is composed of fat. BMI does not measure body fat directly.Rather, it is an alternative to procedures that directly measure body fat, which can be difficult and expensive. BMI can help identify people who may be at higher risk for certain medical problems. What are BMI measurements used for? BMI is used as a screening tool to identify possible weight problems. It helps determine whether a person is obese, overweight, a healthy weight, or underweight. BMI is useful for: Identifying a weight problem that may be related to a medical condition or may increase the risk for medical problems. Promoting changes, such as changes in diet and exercise, to help reach a healthy weight. BMI screening can be repeated to see if these changes are working. How is BMI calculated? BMI involves measuring your weight in relation to your height. Both height and weight are measured,and the BMI is calculated from those numbers. This can be done either in [place] ([place] or metric measurements. Note that charts and online BMI calculators are available to help you find your BMI quickly and easily without having to do these calculations yourself. To calculate your BMI in [place] ([place] measurements: 1.Measure your weight in pounds (lb). 2.Multiply the number of pounds by 703. For example, for a person who weighs 180 lb, multiply that number by 703, which equals 126,540. 3.Measure your height in inches. Then multiply that number by itself to get a measurement called inches squared. For example, for a person who is 70 inches tall, the inches squared measurement is 70 inches x 70inches, which equals 4,900 inches squared. 4.Divide the total from step 2 (number of lb x 703) by the total from step 3 (inches squared): 126,540 4,900 = 25.8. This is your BMI. To calculate your BMI in metric measurements: 1.Measure your weight in kilograms (kg). 2.Measure your height in meters (m). Then multiply that number by itself to get a measurement called meters squared. For example, for a person who is 1.75 m tall, the meters squared measurement is 1.75 m x 1.75 m, which is equal to 3.1 meters squared. 3.Divide the number of kilograms (your weight) by the meters squared number. In this example: 70 3.1 = 22.6. This is your BMI. What do the results mean? BMI charts are used to identify whether you are underweight, normal weight, overweight, or obese. The following guidelines will be used: Underweight: BMI less than 18.5. Normal weight: BMI between 18.5 and 24.9. Overweight: BMI between 25 and 29.9. Obese: BMI of 30 or above. Keep these notes in mind: Weight includes both fat and muscle, so someone with a muscular build, such as an athlete, may havea BMI that is higher than 24.9. In cases like these, BMI is not an accurate measure of body fat. To determine if excess body fat is the cause of a BMI of 25 or higher, further assessments may needto be done by a health care provider. BMI is usually interpreted in the same way for men and women. Where to find more information For more information about BMI, including tools to quickly calculate your BMI, go to these websites: Centers for Disease Control and Prevention: www.cdc.gov [place] [employer]: www.heart.org National Heart, Lung, and Blood Prole: www.nhlbi.nih.gov Summary Body mass index (BMI) is a number that is calculated from a person's weight and height. BMI may help estimate how much of a person's weight is composed of fat. BMI can help identify thosewho may be at higher risk for certain medical problems. BMI can be measured using [place] measurements or metric measurements. BMI charts are used to identify whether you are underweight, normal weight, overweight, or obese. This information is not intended to replace advice given to you by your health care provider. Make sure you discuss any questions you have with your health care provider. Document Revised: 04/04/2020 Document Reviewed: 02/10/2020 [place] Patient Education 2022 [employer]. [facility] 06-01-2023 Hospital Discharge instructions Patient Education 12/25/2022 11:22:03 Fecal Incontinence Fecal Incontinence Fecal incontinence, also called accidental bowel leakage, is not being able to control your bowels.This condition happens because the nerves or muscles around the anus do not work the way they should. This affects their ability to hold stool (feces). What are the causes? This condition may be caused by: Damage to the muscles at the end of the rectum (sphincter). Damage to the nerves that control bowel movements. Diarrhea. Chronic constipation. Pelvic floor dysfunction. This means the muscles in the pelvis do not work well. Loss of bowel storage capacity. This occurs when the rectum can no longer stretch in size in order to store feces. Inflammatory bowel disease (IBD), such as Crohn's disease. Irritable bowel syndrome (IBS). What increases the risk? You are more likely to develop this condition if you: Were born with bowels or a pelvis that did not form correctly. Have had rectal surgery. Have had radiation treatment for certain cancers. Have been , had a vaginal delivery, or had surgery that damaged the pelvic floor muscles. Had a complicated childbirth, spinal cord injury, or other trauma that caused nerve damage. Have a condition that can affect nerve function, such as diabetes, Parkinson's disease, or multiplesclerosis. Have a condition where the rectum drops down into the anus or vagina (prolapse). Are 65 years of age or older. What are the signs or symptoms? The main symptom of this condition is not being able to control your bowels. You also might not be able to get to the bathroom before a bowel movement. How is this diagnosed? This condition is diagnosed with a medical history and physical exam. You may also have other tests, including: Blood tests. Urine tests. A rectal exam. Ultrasound. MRI. Colonoscopy. This is an exam that looks at your large intestine (colon). Anal manometry. This is a test that measures the strength of the anal sphincter. Anal electromyogram (EMG). This is a test that uses small electrodes to check for nerve damage. How is this treated? Treatment for this condition depends on the cause and severity. Treatment may also focus on addressing any underlying causes of this condition. Treatment may include: Medicines. This may include medicines to: ?Prevent diarrhea. ?Help with constipation (bulk-forming laxatives). ?Treat any underlying conditions. Biofeedback therapy. This can help to retrain muscles that are affected. Fiber supplements. These can help manage your bowel movements. Nerve stimulation. Injectable gel to promote tissue growth and better muscle control. Surgery. You may need: ?Sphincter repair surgery. ?Diversion surgery. This procedure lets feces pass out of your body through a hole in your abdomen. Follow these instructions at home: Eating and drinking Follow instructions from your health care provider about any eating or drinking restrictions. ?Work with a dietitian to come up with a healthy diet that will help you avoid the foods that can make your condition worse. ?Keep a diet diary to find out which foods or drinks could be making your condition worse. Drink enough fluid to keep your urine pale yellow. Lifestyle Do not use any products that contain nicotine or tobacco, such as cigarettes and e-cigarettes. If you need help quitting, ask your health care provider. This may help your condition. If you are overweight, talk with your health care provider about how to safely lose weight. This may help your condition. Increase your physical activity as told by your health care provider. This may help your condition.Always talk with your health care provider before starting a new exercise program. Carry a change of clothes and supplies to clean up quickly if you have an episode of fecal incontinence. Consider joining a fecal incontinence support group. You can find a support group online or in yourcal community. General instructions Take iikj-nor-zmbinmh and prescription medicines only as told by your health care provider. This includes any supplements. Apply a moisture barrier, such as petroleum jelly, to your rectum. This protects the skin from irritation caused by ongoing leaking or diarrhea. Tell your health care provider if you are upset or depressed about your condition. Keep all follow-up visits as told by your health care provider. This is important. Where to find more information International Foundation for Functional Gastrointestinal Disorders: iffgd.org [place] [employer]: patients.gi.org Contact a health care provider if: You have a fever. You have redness, swelling, or pain around your rectum. Your pain is getting worse or you lose feeling in your rectal area. You have blood in your stool. You feel sad or hopeless. You avoid social or work situations. Get help right away if: You stop having bowel movements. You cannot eat or drink without vomiting. You have rectal bleeding that does not stop. You have severe pain that is getting worse. You have symptoms of dehydration, including: ?Sleepiness or fatigue. ?Producing little or no urine, tears, or sweat. ?Dizziness. ?Dry mouth. ?Unusual irritability. ?Headache. ?Inability to think clearly. Summary Fecal incontinence, also called accidental bowel leakage, is not being able to control your bowels.This condition happens because the nerves or muscles around the anus do not work the way they should. Treatment varies depending on the cause and severity of your condition. Treatment may also focus onaddressing any underlying causes of this condition. Follow instructions from your health care provider about any eating or drinking restrictions, lifestyle changes, and skin care. Take ritg-wug-xneiucj and prescription medicines only as told by your health care provider. This includes any supplements. Tell your health care provider if your symptoms worsen or if you are upset or depressed about your condition. This information is not intended to replace advice given to you by your health care provider. Make sure you discuss any questions you have with your health care provider. Document Revised: 01/21/2022 Document Reviewed: 01/22/2022 [place] Patient Education 2022 [employer]. Follow Up Care 09/24/2022 10:56:30 With:Tammy Cantu CNP Address: When:3 months [facility] 05-09-2023 Hospital Discharge instructions Patient Education 12/02/2022 14:11:12 Pelvic Organ Prolapse Pelvic Organ Prolapse Pelvic organ prolapse is a condition in women that involves the stretching, bulging, or dropping ofpelvic organs into an abnormal position, past the opening of the vagina. It happens when the muscles and tissues that surround and support pelvic structures become weak or stretched. Pelvic organ prolapse can involve the: Vagina (vaginal prolapse). Uterus (uterine prolapse). Bladder (cystocele). Rectum (rectocele). Intestines (enterocele). When organs other than the vagina are involved, they often bulge into the vagina or protrude from the vagina, depending on how severe the prolapse is. What are the causes? This condition may be caused by: , labor, and childbirth. Past pelvic surgery. Lower levels of the hormone estrogen due to menopause. Consistently lifting more than 50 lb (23 kg). Obesity. Long-term difficulty passing stool (chronic constipation). Long-term, or chronic, cough. Fluid buildup in the abdomen due to certain conditions. What are the signs or symptoms? Symptoms of this condition include: Leaking a little urine (loss of bladder control) when you cough, sneeze, strain, and exercise (stress incontinence). This may be worse immediately after childbirth. It may gradually improve over time. Feeling pressure in your pelvis or vagina. This pressure may increase when you cough or when you are passing stool. A bulge that protrudes from the opening of your vagina. Difficulty passing urine or stool. Pain in your lower back. Pain or discomfort during sex, or decreased interest in sex. Repeated bladder infections (urinary tract infections). Difficulty inserting a tampon. In some people, this condition causes no symptoms. How is this diagnosed? This condition may be diagnosed based on a vaginal and rectal exam. During the exam, you may be asked to cough and strain while you are lying down, sitting, and standing up. Your health care providerwill determine if other tests are required, such as bladder function tests. How is this treated? Treatment for this condition may depend on your symptoms. Treatment may include: Lifestyle changes, such as drinking plenty of fluids and eating foods that are high in fiber. Emptying your bladder at scheduled times (bladder training therapy). This can help reduce or avoid urinary incontinence. Estrogen. This may help mild prolapse by increasing the strength and tone of pelvic floor muscles. Kegel exercises. These may help mild cases of prolapse by strengthening and tightening the muscles of the pelvic floor. A soft, flexible device that helps support the vaginal isaacs and keep pelvic organs in place (pessary). This is inserted into your vagina by your health care provider. Surgery. This is often the only form of treatment for severe prolapse. Follow these instructions at home: Eating and drinking Avoid drinking beverages that contain caffeine or alcohol. Increase your intake of high-fiber foods to decrease constipation and straining during bowel movements. Activity Lose weight if recommended by your health care provider. Avoid heavy lifting and straining with exercise and work. Do not hold your breath when you perform mild to moderate lifting and exercise activities. Limit your activities as directed by your health care provider. Do Kegel exercises as directed by your health care provider. To do this: ?Squeeze your pelvic floor muscles tight. You should feel a tight lift in your rectal area and a tightness in your vaginal area. Keep your stomach, buttocks, and legs relaxed. ?Hold the muscles tight for up to 10 seconds. Then relax your muscles. ?Repeat this exercise 50 times a day, or as much as told by your health care provider. Continue to do this exercise for at least 4 6 weeks, or for as long as told by your health care provider. General instructions Take azwi-jvx-grbadwd and prescription medicines only as told by your health care provider. Wear a sanitary pad or adult diapers if you have urinary incontinence. If you have a pessary, take care of it as told by your health care provider. Keep all follow-up visits. This is important. Contact a health care provider if you: Have symptoms that interfere with your daily activities or sex life. Need medicine to help with the discomfort. Notice bleeding from your vagina that is not related to your menstrual period. Have a fever. Have pain or bleeding when you urinate. Have bleeding when you pass stool. Pass urine when you have sex. Have chronic constipation. Have a pessary that falls out. Have a foul-smelling vaginal discharge. Have an unusual, low pain in your abdomen. Get help right away if you: Cannot pass urine. Summary Pelvic organ prolapse is the stretching, bulging, or dropping of pelvic organs into an abnormal position. It happens when the muscles and tissues that surround and support pelvic structures become weak or stretched. When organs other than the vagina are involved, they often bulge into the vagina or protrude from it, depending on how severe the prolapse is. In most cases, this condition needs to be treated only if it produces symptoms. Treatment may include lifestyle changes, estrogen, Kegel exercises, pessary insertion, or surgery. Avoid heavy lifting and straining with exercise and work. Do not hold your breath when you perform mild to moderate lifting and exercise activities. Limit your activities as directed by your health care provider. This information is not intended to replace advice given to you by your health care provider. Make sure you discuss any questions you have with your health care provider. Document Revised: 01/07/2021 Document Reviewed: 01/07/2021 [place] Patient Education 2022 [employer]. 12/02/2022 14:11:09 How to Use a Vaginal Pessary How to Use a Vaginal Pessary A vaginal pessary is a removable device that is placed into your vagina to support pelvic organs that droop. These organs include your uterus, bladder, and rectum. When your pelvic organs drop down into your vagina, it causes a condition called pelvic organ prolapse (POP). A pessary may be an alternative to surgery for women with POP. It may help women who leak urine when they strain or exercise (stress incontinence). This is a symptom of POP. A vaginal pessary may also be a temporary treatment for stress incontinence during . There are several types of pessaries. All types are usually made of silicone. You can insert and remove some on your own. Other types must be inserted and removed by your health care provider at office visits. The reason you are using a pessary and the severity of your condition will determine which one is best for you. It is also important to find the right size. A pessary that is too small may fall out. A pessary that is too large may cause pain or discomfort. Your health care provider will do a physical exam to find the correct size and fit for your pessary. It may take several appointments to find the best fitfor you. If you can be fit with the type of pessary that you can insert, remove, and clean yourself, your health care provider will teach you how to use your pessary at home. You may have checkups every few months. If you have the type of pessary that needs to be inserted and removed by your health care provider, you will have appointments every few months to have the pessary removed, cleaned, and replaced. What are the risks? When properly fitted and cared for, risks of using a vaginal pessary can be small. However, there can be problems that may include: Vaginal discharge. Vaginal bleeding. A bad smell coming from your vagina. Scraping of the skin inside your vagina. How to use your pessary Follow your health care provider's instructions for using a pessary. These instructions may vary, depending on the type of pessary you have. To insert a pessary: 1.Wash your hands with soap and water for at least 20 seconds. 2.Squeeze or fold the pessary in half and lubricate the tip with a water-based lubricant. 3.Insert the pessary into your vagina. It will unfold and provide support. To remove the pessary, gently tug it out of your vagina. You can remove the pessary every night or after several days. You can also remove it to have sex. How to care for your pessary If you have a pessary that you can remove: Clean your pessary with soap and water. Rinse well. Dry it completely before inserting it back into your vagina. Follow these instructions at home: Take sjcc-lvk-[id number] and prescription medicines only as told by your health care provider. Your health care provider may prescribe an estrogen cream to moisten your vagina. Keep all follow-up visits. This is important. Contact a health care provider if: You feel any pain or discomfort when your pessary is in place. You continue to have stress incontinence. You have trouble keeping your pessary from falling out. You have an unusual vaginal discharge that is blood-tinged or smells bad. Summary A vaginal pessary is a removable device that is placed into your vagina to support pelvic organs that droop. This condition is called pelvic organ prolapse (POP). There are several types of pessaries. Some you can insert and remove on your own. Others must be inserted and removed by your health care provider. The best type for you depends on the reason you are using a pessary and the severity of your condition. It is also important to find the right size. If you can use the type that you insert and remove on your own, your health care provider will teach you how to use it and schedule checkups every few months. If you have the type that needs to be inserted and removed by your health care provider, you will have regular appointments to have your pessary removed, cleaned, and replaced. This information is not intended to replace advice given to you by your health care provider. Make sure you discuss any questions you have with your health care provider. Document Revised: 01/10/2021 Document Reviewed: 01/10/2021 [place] Patient Education 2022 [employer]. 12/02/2022 14:11:07 Pelvic Floor Dysfunction, Female Pelvic Floor Dysfunction, Female Pelvic floor dysfunction (PFD) is a condition that results when the group of muscles and connectivetissues that support the organs in the pelvis (pelvic floor muscles) do not work well. These muscles and their connections form a sling that supports the colon and bladder. In women, they also support the uterus. PFD causes pelvic floor muscles to be too weak, too tight, or both. In PFD, muscle movements are not coordinated. This may cause bowel or bladder problems. It may also cause pain. What are the causes? This condition may be caused by an injury to the pelvic area or by a weakening of pelvic muscles. This often results from and childbirth or other types of strain. In many cases, the exact cause is not known. What increases the risk? The following factors may make you more likely to develop this condition: Having chronic bladder tissue inflammation (interstitial cystitis). Being an older person. Being overweight. History of radiation treatment for cancer in the pelvic region. Previous pelvic surgery, such as removal of the uterus (hysterectomy). What are the signs or symptoms? Symptoms of this condition vary and may include: Bladder symptoms, such as: ?Trouble starting urination and emptying the bladder. ?Frequent urinary tract infections. ?Leaking urine when coughing, laughing, or exercising (stress incontinence). ?Having to pass urine urgently or frequently. ?Pain when passing urine. Bowel symptoms, such as: ?Constipation. ?Urgent or frequent bowel movements. ?Incomplete bowel movements. ?Painful bowel movements. ?Leaking stool or gas. Unexplained genital or rectal pain. Genital or rectal muscle spasms. Low back pain. Other symptoms may include: A heavy, full, or aching feeling in the vagina. A bulge that protrudes into the vagina. Pain during or after sex. How is this diagnosed? This condition may be diagnosed based on: Your symptoms and medical history. A physical exam. During the exam, your health care provider may check your pelvic muscles for tightness, spasm, pain, or weakness. This may include a rectal exam and a pelvic exam. In some cases, you may have diagnostic tests, such as: Electrical muscle function tests. Urine flow testing. X-ray tests of bowel function. Ultrasound of the pelvic organs. How is this treated? Treatment for this condition depends on the symptoms. Treatment options include: Physical therapy. This may include Kegel exercises to help relax or strengthen the pelvic floor muscles. Biofeedback. This type of therapy provides feedback on how tight your pelvic floor muscles are so that you can learn to control them. Internal or external massage therapy. A treatment that involves electrical stimulation of the pelvic floor muscles to help control pain (transcutaneous electrical nerve stimulation, or TENS). Sound wave therapy (ultrasound) to reduce muscle spasms. Medicines, such as: ?Muscle relaxants. ?Bladder control medicines. Surgery to reconstruct or support pelvic floor muscles may be an option if other treatments do not help. Follow these instructions at home: Activity Do your usual activities as told by your health care provider. Ask your health care provider if youshould modify any activities. Do pelvic floor strengthening or relaxing exercises at home as told by your physical therapist. Lifestyle Maintain a healthy weight. Eat foods that are high in fiber, such as beans, whole grains, and fresh fruits and vegetables. Limit foods that are high in fat and processed sugars, such as fried or sweet foods. Manage stress with relaxation techniques such as yoga or meditation. General instructions If you have problems with leakage: ?Use absorbable pads or wear padded underwear. ?Wash frequently with mild soap. ?Keep your genital and anal area as clean and dry as possible. ?Ask your health care provider if you should try a barrier cream to prevent skin irritation. Take warm baths to relieve pelvic muscle tension or spasms. Take vohg-kvw-yaxfxib and prescription medicines only as told by your health care provider. Keep all follow-up visits. How is this prevented? The cause of PFD is not always known, but there are a few things you can do to reduce the risk of developing this condition, including: Staying at a healthy weight. Getting regular exercise. Managing stress. Contact a health care provider if: Your symptoms are not improving with home care. You have signs or symptoms of PFD that get worse at home. You develop new signs or symptoms. You have signs of a urinary tract infection, such as: ?Fever. ?Chills. ?Increased urinary frequency. ?A burning feeling when urinating. You have not had a bowel movement in 3 days (constipation). Summary Pelvic floor dysfunction results when the muscles and connective tissues in your pelvic floor do not work well. These muscles and their connections form a sling that supports your colon and bladder. In women, they also support the uterus. PFD may be caused by an injury to the pelvic area or by a weakening of pelvic muscles. PFD causes pelvic floor muscles to be too weak, too tight, or a combination of both. Symptoms may vary from person to person. In most cases, PFD can be treated with physical therapies and medicines. Surgery may be an option if other treatments do not help. This information is not intended to replace advice given to you by your health care provider. Make sure you discuss any questions you have with your health care provider. Document Revised: 11/20/2021 Document Reviewed: 11/20/2021 [place] Patient Education 2022 [employer]. 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 I explained that her x-rays overall look good. Her physical exam overall looks good with her stability and motion. I also explained that she does have some hip arthritis and if there was referred pain into the knees from the hips that I would not have anticipated 100% relief with the Voltaren gel. As a result, at this point time I do not think there is anything further to work-up from a hip referred pain standpoint. I ultimately recommended continue Voltaren gel use considering she gets 100% relief. If she needs more in the future I am happy to refill it. Also happy to discuss her knee pain further in the future if she has an issue. 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 A significant amount of time was spent discussing her prior orthopedic care for her knees. I explained to her that overall I think her x-rays look good and I do not appreciate any acute abnormalities on x-ray. Furthermore, I do not appreciate any acute abnormalities on her physical exam. At this point in time with her vague global knee pain symptoms I recommended Voltaren gel, continue naproxen use, Tylenol, and I prescribed her a Medrol Dosepak to try and calm down any inflammation in the knees. I will plan to see her back in 4 weeks to check on her progress. If she still having pain at that time we can certainly did a little deeper for other issues with the knees. [facility] [employer] Other 04-03-2023 Hospital Discharge instructions Patient Education 10/27/2022 08:57:42 Dietary Guidelines to Help Prevent Kidney Stones Dietary Guidelines to Help Prevent Kidney Stones Kidney stones are deposits of minerals and salts that form inside your kidneys. Your risk of developing kidney stones may be greater depending on your diet, your lifestyle, the medicines you take, and whether you have certain medical conditions. Most people can reduce their chances of developing kidney stones by following the instructions below. Depending on your overall health and the type of kidney stones you tend to develop, your dietitian may give you more specific instructions. What are tips for following this plan? Reading food labels Choose foods with no salt added or low-salt labels. Limit your sodium intake to less than 1500 mg per day. Choose foods with calcium for each meal and snack. Try to eat about 300 mg of calcium at each meal.Foods that contain 200 500 mg of calcium per serving include: ?8 oz (237 ml) of milk, fortified nondairy milk, and fortified fruit juice. ?8 oz (237 ml) of kefir, yogurt, and soy yogurt. ?4 oz (118 ml) of tofu. ?1 oz of cheese. ?1 cup (300 g) of dried figs. ?1 cup (91 g) of cooked broccoli. ?1 3 oz can of sardines or mackerel. Most people need 1000 to 1500 mg of calcium each day. Talk to your dietitian about how much calciumis recommended for you. Shopping Buy plenty of fresh fruits and vegetables. Most people do not need to avoid fruits and vegetables, even if they contain nutrients that may contribute to kidney stones. When shopping for convenience foods, choose: ?Whole pieces of fruit. ?Premade salads with dressing on the side. ?Low-fat fruit and yogurt smoothies. Avoid buying frozen meals or prepared deli foods. Look for foods with live cultures, such as yogurt and kefir. Cooking Do not add salt to food when cooking. Place a salt shaker on the table and allow each person to addhis or her own salt to taste. Use vegetable protein, such as beans, textured vegetable protein (TVP), or tofu instead of meat in pasta, casseroles, and soups. Meal planning Eat less salt, if told by your dietitian. To do this: ?Avoid eating processed or premade food. ?Avoid eating fast food. Eat less animal protein, including cheese, meat, poultry, or fish, if told by your dietitian. To dothis: ?Limit the number of times you have meat, poultry, fish, or cheese each week. Eat a diet free of meat at least 2 days a week. ?Eat only one serving each day of meat, poultry, fish, or seafood. ?When you prepare animal protein, cut pieces into small portion sizes. For most meat and fish, one serving is about the size of one deck of cards. Eat at least 5 servings of fresh fruits and vegetables each day. To do this: ?Keep fruits and vegetables on hand for snacks. ?Eat 1 piece of fruit or a handful of berries with breakfast. ?Have a salad and fruit at lunch. ?Have two kinds of vegetables at dinner. Limit foods that are high in a substance called oxalate. These include: ?Spinach. ?Rhubarb. ?Beets. ?Potato chips and [place] fries. ?Nuts. If you regularly take a diuretic medicine, make sure to eat at least 1 2 fruits or vegetables high in potassium each day. These include: ?Avocado. ?Banana. ?[place], prune, carrot, or tomato juice. ?Baked potato. ?Cabbage. ?Beans and split peas. General instructions Drink enough fluid to keep your urine clear or pale yellow. This is the most important thing you can do. Talk to your health care provider and dietitian about taking daily supplements. Depending on your health and the cause of your kidney stones, you may be advised: ?Not to take supplements with vitamin C. ?To take a calcium supplement. ?To take a daily probiotic supplement. ?To take other supplements such as magnesium, fish oil, or vitamin B6. Take all medicines and supplements as told by your health care provider. Limit alcohol intake to no more than 1 drink a day for non women and 2 drinks a day for men. One drink equals 12 oz of beer, 5 oz of wine, or 1 oz of hard liquor. Lose weight if told by your health care provider. Work with your dietitian to find strategies and an eating plan that works best for you. What foods are not recommended? Limit your intake of the following foods, or as told by your dietitian. Talk to your dietitian about specific foods you should avoid based on the type of kidney stones and your overall health. Grains Breads. Bagels. Rolls. Baked goods. Salted crackers. Cereal. Pasta. Vegetables Spinach. Rhubarb. Beets. Canned vegetables. Pickles. Olives. Meats and other protein foods Nuts. Nut butters. Large portions of meat, poultry, or fish. Salted or cured meats. Deli meats. Hotdogs. Sausages. Dairy Cheese. Beverages Regular soft drinks. Regular vegetable juice. Seasonings and other foods Seasoning blends with salt. Salad dressings. Canned soups. Soy sauce. Ketchup. Barbecue sauce. Canned pasta sauce. Casseroles. Pizza. Lasagna. Frozen meals. Potato chips. [place] fries. Summary You can reduce your risk of kidney stones by making changes to your diet. The most important thing you can do is drink enough fluid. You should drink enough fluid to keep your urine clear or pale yellow. Ask your health care provider or dietitian how much protein from animal sources you should eat eachday, and also how much salt and calcium you should have each day. This information is not intended to replace advice given to you by your health care provider. Make sure you discuss any questions you have with your health care provider. Document Released: 11/07/2011 Document Revised: 11/02/2019 Document Reviewed: 06/23/2017 [place] Patient Education 2020 [employer]. Follow Up Care 09/23/2022 11:47:44 With:ARYA CHERY, Chalo Hancock, URL Address: [facility] [address], [place] [address]- When: Unknown [facility] Hospital Discharge instructions Patient Education 10/21/2022 12:12:17 Prediabetes Eating Plan Prediabetes Eating Plan Prediabetes is a condition that causes blood sugar (glucose) levels to be higher than normal. This increases the risk for developing diabetes. In order to prevent diabetes from developing, your health care provider may recommend a diet and other lifestyle changes to help you: Control your blood glucose levels. Improve your cholesterol levels. Manage your blood pressure. Your health care provider may recommend working with a diet and child nutrition assistant (dietitian) tomake a meal plan that is best for you. What are tips for following this plan? Lifestyle Set weight loss goals with the help of your health care team. It is recommended that most people with prediabetes lose 7% of their current body weight. Exercise for at least 30 minutes at least 5 days a week. Attend a support group or seek ongoing support from a mental health counselor. Take dbdp-fgb-[id number] and prescription medicines only as told by your health care provider. Reading food labels Read food labels to check the amount of fat, salt (sodium), and sugar in prepackaged foods. Avoid foods that have: ?Saturated fats. ?Trans fats. ?Added sugars. Avoid foods that have more than 300 milligrams (mg) of sodium per serving. Limit your daily sodium intake to less than 2,300 mg each day. Shopping Avoid buying pre-made and processed foods. Cooking Cook with olive oil. Do not use butter, lard, or ghee. Bake, broil, grill, or boil foods. Avoid frying. Meal planning Work with your dietitian to develop an eating plan that is right for you. This may include: ?Tracking how many calories you take in. Use a food diary, notebook, or mobile application to trackwhat you eat at each meal. ?Using the glycemic index (GI) to plan your meals. The index tells you how quickly a food will raise your blood glucose. Choose low-GI foods. These foods take a longer time to raise blood glucose. Consider following a Mediterranean diet. This diet includes: ?Several servings each day of fresh fruits and vegetables. ?Eating fish at least twice a week. ?Several servings each day of whole grains, beans, nuts, and seeds. ?Using olive oil instead of other fats. ?Moderate alcohol consumption. ?Eating small amounts of red meat and whole-fat dairy. If you have high blood pressure, you may need to limit your sodium intake or follow a diet such as the DASH eating plan. DASH is an eating plan that aims to lower high blood pressure. What foods are recommended? The items listed below may not be a complete list. Talk with your dietitian about what dietary choices are best for you. Grains Whole grains, such as whole-wheat or whole-grain breads, crackers, cereals, and pasta. Unsweetened oatmeal. Bulgur. Barley. Quinoa. Brown rice. [place] or whole- wheat flour tortillas or taco shells. Vegetables Lettuce. Spinach. Peas. Beets. Cauliflower. Cabbage. Broccoli. Carrots. Tomatoes. Squash. Eggplant.Herbs. Peppers. Onions. Cucumbers. [place] sprouts. Fruits Berries. Bananas. Apples. Oranges. Grapes. Papaya. [place]. Pomegranate. Kiwi. Grapefruit. Cherries. Meats and other protein foods Seafood. Poultry without skin. Lean cuts of pork and beef. Tofu. Eggs. Nuts. Beans. Dairy Low-fat or fat-free dairy products, such as yogurt, cottage cheese, and cheese. Beverages Water. Tea. Coffee. Sugar-free or diet soda. [place] water. Lowfat or no-fat milk. Milk alternatives, such as soy or almond milk. Fats and oils [place] oil. Canola oil. [place] oil. Grapeseed oil. Avocado. Walnuts. Sweets and desserts Sugar-free or low-fat pudding. Sugar-free or low-fat ice cream and other frozen treats. Seasoning and other foods Herbs. Sodium-free spices. Mustard. Relish. Low-fat, low-sugar ketchup. Low-fat, low-sugar barbecuesauce. Low-fat or fat-free mayonnaise. What foods are not recommended? The items listed below may not be a complete list. Talk with your dietitian about what dietary choices are best for you. Grains Refined white flour and flour products, such as bread, pasta, snack foods, and cereals. Vegetables Canned vegetables. Frozen vegetables with butter or cream sauce. Fruits Fruits canned with syrup. Meats and other protein foods Fatty cuts of meat. Poultry with skin. Breaded or fried meat. Processed meats. Dairy Full-fat yogurt, cheese, or milk. Beverages Sweetened drinks, such as sweet iced tea and soda. Fats and oils Butter. Lard. Ghee. Sweets and desserts Baked goods, such as cake, cupcakes, pastries, cookies, and cheesecake. Seasoning and other foods Spice mixes with added salt. Ketchup. Barbecue sauce. Mayonnaise. Summary To prevent diabetes from developing, you may need to make diet and other lifestyle changes to help control blood sugar, improve cholesterol levels, and manage your blood pressure. Set weight loss goals with the help of your health care team. It is recommended that most people with prediabetes lose 7 percent of their current body weight. Consider following a Mediterranean diet that includes plenty of fresh fruits and vegetables, whole grains, beans, nuts, seeds, fish, lean meat, low-fat dairy, and healthy oils. This information is not intended to replace advice given to you by your health care provider. Make sure you discuss any questions you have with your health care provider. Document Released: 11/27/2015 Document Revised: 11/04/2019 Document Reviewed: 09/16/2017 [employer] Patient Education 2020 [employer] Follow Up Care 09/18/2022 12:34:04 With:WAYNE CHERY, Yelena Howard, [facility] Address: [facility] [address], [place] [address]- When:Within 4 Month(s) [facility] 03-01-2023 Hospital Discharge instructions Patient Education 09/24/2022 10:19:15 High-Fiber Diet High-Fiber Diet Fiber, also called dietary fiber, is a type of carbohydrate that is found in fruits, vegetables, whole grains, and beans. A high-fiber diet can have many health benefits. Your health care provider may recommend a high-fiber diet to help: Prevent constipation. Fiber can make your bowel movements more regular. Lower your cholesterol. Relieve the following conditions: ?Swelling of veins in the anus (hemorrhoids). ?Swelling and irritation (inflammation) of specific areas of the digestive tract (uncomplicated diverticulosis). ?A problem of the large intestine (colon) that sometimes causes pain and diarrhea (irritable bowel syndrome, IBS). Prevent overeating as part of a weight-loss plan. Prevent heart disease, type 2 diabetes, and certain cancers. What is my plan? The recommended daily fiber intake in grams (g) includes: 38 g for men age 50 or younger. 30 g for men over age 50. 25 g for women age 50 or younger. 21 g for women over age 50. You can get the recommended daily intake of dietary fiber by: Eating a variety of fruits, vegetables, grains, and beans. Taking a fiber supplement, if it is not possible to get enough fiber through your diet. What do I need to know about a high-fiber diet? It is better to get fiber through food sources rather than from fiber supplements. There is not a lot of research about how effective supplements are. Always check the fiber content on the nutrition facts label of any prepackaged food. Look for foodsthat contain 5 g of fiber or more per serving. Talk with a diet and child nutrition assistant (dietitian) if you have questions about specific foods that are recommended or not recommended for your medical condition, especially if those foods are not listed below. Gradually increase how much fiber you consume. If you increase your intake of dietary fiber too quickly, you may have bloating, cramping, or gas. Drink plenty of water. Water helps you to digest fiber. What are tips for following this plan? Eat a wide variety of high-fiber foods. Make sure that half of the grains that you eat each day are whole grains. Eat breads and cereals that are made with whole-grain flour instead of refined flour or white flour. Eat brown rice, bulgur wheat, or millet instead of white rice. Start the day with a breakfast that is high in fiber, such as a cereal that contains 5 g of fiber or more per serving. Use beans in place of meat in soups, salads, and pasta dishes. Eat high-fiber snacks, such as berries, raw vegetables, nuts, and popcorn. Choose whole fruits and vegetables instead of processed forms like juice or sauce. What foods can I eat? Fruits Berries. Pears. Apples. Oranges. Avocado. Prunes and raisins. Dried figs. Vegetables Sweet potatoes. Spinach. Kale. Artichokes. Cabbage. Broccoli. Cauliflower. Green peas. Carrots. Squash. Grains Whole-grain breads. Multigrain cereal. Oats and oatmeal. Brown rice. Barley. Bulgur wheat. Millet. Quinoa. Bran muffins. Popcorn. [place] wafer crackers. Meats and other proteins [place], kidney, and carmen beans. Soybeans. Split peas. Lentils. Nuts and seeds. Dairy Fiber-fortified yogurt. Beverages Fiber-fortified soy milk. Fiber-fortified orange juice. Other foods Fiber bars. The items listed above may not be a complete list of recommended foods and beverages. Contact a dietitian for more options. What foods are not recommended? Fruits Fruit juice. Cooked, strained fruit. Vegetables Fried potatoes. Canned vegetables. Well-cooked vegetables. Grains White bread. Pasta made with refined flour. White rice. Meats and other proteins Fatty cuts of meat. Fried chicken or fried fish. Dairy Milk. Yogurt. Cream cheese. Sour cream. Fats and oils [place]. Beverages Soft drinks. Other foods Cakes and pastries. The items listed above may not be a complete list of foods and beverages to avoid. Contact a dietitian for more information. Summary Fiber is a type of carbohydrate. It is found in fruits, vegetables, whole grains, and beans. There are many health benefits of eating a high-fiber diet, such as preventing constipation, lowering blood cholesterol, helping with weight loss, and reducing your risk of heart disease, diabetes, and certain cancers. Gradually increase your intake of fiber. Increasing too fast can result in cramping, bloating, and gas. Drink plenty of water while you increase your fiber. The best sources of fiber include whole fruits and vegetables, whole grains, nuts, seeds, and beans. This information is not intended to replace advice given to you by your health care provider. Make sure you discuss any questions you have with your health care provider. Document Released: 07/13/2006 Document Revised: 05/17/2018 Document Reviewed: 05/17/2018 [place] Patient Education 2020 [employer]. Follow Up Care 06/23/2022 09:45:29 With:Tammy Cantu CNP Address: When:3 months [facility] 02-23-2023 Hospital Discharge instructions Patient Education 09/18/2022 12:21:37 Hypertension, Adult, Ucar-ec-Euat Hypertension, Adult Hypertension is another name for high blood pressure. High blood pressure forces your heart to workharder to pump blood. This can cause problems over time. There are two numbers in a blood pressure reading. There is a top number (systolic) over a bottom number (diastolic). It is best to have a blood pressure that is below 120/80. Healthy choices can help lower your blood pressure, or you may need medicine to help lower it. What are the causes? The cause of this condition is not known. Some conditions may be related to high blood pressure. What increases the risk? Smoking. Having type 2 diabetes mellitus, high cholesterol, or both. Not getting enough exercise or physical activity. Being overweight. Having too much fat, sugar, calories, or salt (sodium) in your diet. Drinking too much alcohol. Having long-term (chronic) kidney disease. Having a family history of high blood pressure. Age. Risk increases with age. Race. You may be at higher risk if you are . Gender. Men are at higher risk than women before age 45. After age 65, women are at higher risk than men. Having obstructive sleep apnea. Stress. What are the signs or symptoms? High blood pressure may not cause symptoms. Very high blood pressure (hypertensive crisis) may cause: ?Headache. ?Feelings of worry or nervousness (anxiety). ?Shortness of breath. ?Nosebleed. ?A feeling of being sick to your stomach (nausea). ?Throwing up (vomiting). ?Changes in how you see. ?Very bad chest pain. ?Seizures. How is this treated? This condition is treated by making healthy lifestyle changes, such as: ?Eating healthy foods. ?Exercising more. ?Drinking less alcohol. Your health care provider may prescribe medicine if lifestyle changes are not enough to get your blood pressure under control, and if: ?Your top number is above 130. ?Your bottom number is above 80. Your personal target blood pressure may vary. Follow these instructions at home: Eating and drinking If told, follow the DASH eating plan. To follow this plan: ?Fill one half of your plate at each meal with fruits and vegetables. ?Fill one fourth of your plate at each meal with whole grains. Whole grains include whole-wheat pasta, brown rice, and whole-grain bread. ?Eat or drink low-fat dairy products, such as skim milk or low-fat yogurt. ?Fill one fourth of your plate at each meal with low-fat (lean) proteins. Low- fat proteins include fish, chicken without skin, eggs, beans, and tofu. ?Avoid fatty meat, cured and processed meat, or chicken with skin. ?Avoid pre-made or processed food. Eat less than 1,500 mg of salt each day. Do not drink alcohol if: ?Your doctor tells you not to drink. ?You are , may be , or are planning to become . If you drink alcohol: ?Limit how much you use to: ?0 1 drink a day for women. ?0 2 drinks a day for men. ?Be aware of how much alcohol is in your drink. In the [place] one drink equals one 12 oz bottle of beer (355 mL), one 5 oz glass of wine (148 mL), or one 1 oz glass of hard liquor (44 mL). Lifestyle Work with your doctor to stay at a healthy weight or to lose weight. Ask your doctor what the best weight is for you. Get at least 30 minutes of exercise most days of the week. This may include walking, swimming, or biking. Get at least 30 minutes of exercise that strengthens your muscles (resistance exercise) at least 3 days a week. This may include lifting weights or doing Pilates. Do not use any products that contain nicotine or tobacco, such as cigarettes, e- cigarettes, and chewing tobacco. If you need help quitting, ask your doctor. Check your blood pressure at home as told by your doctor. Keep all follow-up visits as told by your doctor. This is important. Medicines Take jdim-vik-olfqtoa and prescription medicines only as told by your doctor. Follow directions carefully. Do not skip doses of blood pressure medicine. The medicine does not work as well if you skip doses.Skipping doses also puts you at risk for problems. Ask your doctor about side effects or reactions to medicines that you should watch for. Contact a doctor if you: Think you are having a reaction to the medicine you are taking. Have headaches that keep coming back (recurring). Feel dizzy. Have swelling in your ankles. Have trouble with your vision. Get help right away if you: Get a very bad headache. Start to feel mixed up (confused). Feel weak or numb. Feel faint. Have very bad pain in your: ?Chest. ?Belly (abdomen). Throw up more than once. Have trouble breathing. Summary Hypertension is another name for high blood pressure. High blood pressure forces your heart to work harder to pump blood. For most people, a normal blood pressure is less than 120/80. Making healthy choices can help lower blood pressure. If your blood pressure does not get lower with healthy choices, you may need to take medicine. This information is not intended to replace advice given to you by your health care provider. Make sure you discuss any questions you have with your health care provider. Document Released: 12/29/2008 Document Revised: 03/23/2019 Document Reviewed: 03/23/2019 [place] Patient Education 2020 [employer]. Follow Up Care 05/19/2022 11:31:30 With:WAYNE CHERY, Yelena Howard, MED Address: [facility] [address], [place] [address]- When:Within 1 Month(s) [facility] 02-03-2023 History of Present illness Narrative* Tati Work - 08/29/2022 10:00 AM EST Explained policies and procedure of an echocardiogram/Doppler study. documented in this encounterBON [facility] [employer] Phone: 1(150) 380-194812-29-2022 History of Present illness Narrative* Gama Reyes RCP - 07/24/2022 9:46 AM EST 07/24/22 0942 Resting (Room Air) SpO2 95 HR 82 Resting (On O2) SpO2 95 HR 76 During Walk (Room Air) SpO2 94 HR 91 Rate of Dyspnea 0 After Walk Does the Patient Qualify for Home O2 No Does the Patient Need Portable Oxygen Tanks No * Luis Manuel Sam MD - 07/24/2022 8:09 AM EST Images from the original note were not included. [facility] Office: [phone] Tab Hamm DO, Cain Heredia DO, Jeovany Kevin DO, Lalito Meyers DO, Leslie Urbina MD, Chante Marrero MD, Toan Damon MD, Kimberlyn Durand MD, Sebas Cha MD, Magdy Fox MD, Deric SnellDO, Luis Manuel Sam MD, Carmela Le DO, Kristopher Lock MD, Sandro Leavitt MD, Blair Hamm DO, Eloina Velez MD, Mario Taylor MD, Michel Jung DO, Jing Colon MD, Cassia Escoto MD, Yenni Haines MD, Angelica Cooper MD, Avel Bella DO, Michael Mcgovern MD, Michel Jimenez MD, Melissa Morales CNP, Lili Riggs CNP, Nazia Hand CNP, Aly Narayanan, KARON, Toyin Gleason, YOSSI, Amelia Browne, KARON, Michelle Presley, KARON, Dominga Bull, KARON, Jackelin Blackwell CNP, Nena Blanco, KARON, Javad Briscoe PA-C, Kathi Montiel, ANTOINETTE, Indira Fernandez CNP, Maureen Ulloa, KARON [facility] IN-PATIENT SERVICE [facility] Progress Note 07/24/2022 8:09 AM Name: Jerrica Rock Acct: [id number] Room: [address] [place] [address] Day: 1 Admit Date: 07/23/2022 9:53 AM PCP: No primary care provider on file. Code Status: Full Code Subjective: C/C: Chief Complaint Patient presents with Dysuria Transfer from [place] for urology consult, has kidney stone Back Pain Interval History Status: not changed. Patient seen and examined, urinating well, received 1 dose lasix. Patient didn't sleep very well. Tachycardia improved Brief History: 86-year-old female past medical history of arthritis, hypertension [facility] with flank pain found to have renal stone with concern for sepsis. At [facility] facility patient was noted to be hypotensive received 30 mils per kilogram fluid bolus and was transferred to [facility] for further care. Patient was urgently taken to the OR underwent cystoscopy with ureteral stent insertion on the right side with urology. Patient on rocephin and given lopresor for metoprolol BID for HTN. Patient tells me that she is currently in the process of making [place] dinner as her family has just arrived from [place]. Is requesting prompt discharge. Review of Systems: Review of Systems Constitutional: Negative for activity change, appetite change, chills and fever. HENT: Negative for congestion, ear pain, facial swelling and mouth sores. Eyes: Negative for discharge and itching. Respiratory: Negative for apnea and chest tightness. Cardiovascular: Negative for chest pain and leg swelling. Gastrointestinal: Negative for abdominal distention, abdominal pain, constipation and diarrhea. Endocrine: Negative for cold intolerance, polyphagia and polyuria. Genitourinary: Positive for frequency. Negative for difficulty urinating, dysuria and flank pain. Musculoskeletal: Negative for arthralgias, back pain and joint swelling. Skin: Negative for color change and wound. Neurological: Negative for dizziness, seizures, light-headedness and headaches. Psychiatric/Behavioral: Negative for agitation, behavioral problems and self-injury. Medications: Allergies: No Known Allergies Current Meds: Scheduled Meds: potassium chloride 40 mEq Oral Once magnesium sulfate 2,000 mg IntraVENous Once sodium chloride flush 5-40 mL IntraVENous 2 times per day enoxaparin 40 mg SubCUTAneous Daily cefTRIAXone (ROCEPHIN) IV 1,000 mg IntraVENous Q24H metoprolol tartrate 25 mg Oral BID Continuous Infusions: sodium chloride PRN Meds: sodium chloride flush, sodium chloride, ondansetron OR ondansetron, magnesium hydroxide, acetaminophen OR acetaminophen, potassium chloride OR potassium alternative oral replacement OR potassium chloride, magnesium sulfate Data: Past Medical History: has a past medical history of Arthritis. Social History: reports that she has never smoked. She has never been exposed to tobacco smoke. Shehas never used smokeless tobacco. She reports current alcohol use of about 1.0 standard drink per week. She reports that she does not use drugs. Family History: History reviewed. No pertinent family history. Vitals: BP 138/69 Pulse 77 Temp 98.2 F (36.8 C) (Axillary) Resp 25 Wt 189 lb (85.7 kg) SpO2 95% Temp (24hrs), Av F (36.7 C), Min:96.8 F (36 C), Max:99.1 F (37.3 C) No results for input(s): POCGLU in the last 72 hours. I/O (24Hr): Intake/Output Summary (Last 24 hours) at 07/24/2022 0809 Last data filed at 07/23/2022 1400 Gross per 24 hour Intake 81.25 ml Output 50 ml Net 31.25 ml Labs: Hematology: Recent Labs 07/23/22 1011 07/23/22 1012 07/24/22 0434 WBC -- 33.4* 21.2* RBC -- 4.02 4.21 HGB -- 11.6* 12.0 HCT -- 36.4 37.6 MCV -- 90.5 89.3 MCH -- 28.9 28.5 MCHC -- 31.9 31.9 RDW -- 15.4* 15.3* PLT -- See Reflexed IPF Result See Reflexed IPF Result INR 1.3 -- -- Chemistry: Recent Labs 07/23/22 1011 07/24/22 0434 NA 139 140 K 4.3 3.6* CL 109* 107 CO2 21 21 GLUCOSE 94 97 BUN 19 16 CREATININE 0.87 0.76 MG 1.6 -- ANIONGAP 9 12 LABGLOM >60 >60 CALCIUM 7.9* 8.4* PROBNP 4,418* -- Recent Labs 07/23/22 1011 PROT 6.0* LABALBU 3.0* AST 29 ALT 17 ALKPHOS 120* BILITOT 0.4 ABG:No results found for: POCPH, PHART, PH, POCPCO2, IDC0KWH, PCO2, POCPO2, PO2ART, PO2, POCHCO3, UPD5UON, HCO3, NBEA, PBEA, BEART, BE, THGBART, THB, EAS1TCW, ITFE3YJQ, F1FDBTVB, O2SAT, FIO2 No results found for: SPECIAL No results found for: CULTURE Radiology: XR CHEST PORTABLE Result Date: 07/23/2022 Shallow inflation with findings favoring subsegmental atelectasis versus developing consolidation. Physical Examination: Physical Exam Constitutional: Appearance: Normal appearance. HENT: Head: Normocephalic and atraumatic. Right Ear: External ear normal. Left Ear: External ear normal. Nose: Nose normal. Mouth/Throat: Mouth: Mucous membranes are moist. Eyes: Pupils: Pupils are equal, round, and reactive to light. Cardiovascular: Rate and Rhythm: Normal rate and regular rhythm. Heart sounds: Murmur heard. Pulmonary: Effort: No respiratory distress. Breath sounds: No wheezing or rales. Abdominal: General: Bowel sounds are normal. There is no distension. Palpations: Abdomen is soft. Musculoskeletal: Cervical back: Neck supple. Right lower leg: No edema. Left lower leg: No edema. Skin: General: Skin is warm and dry. Capillary Refill: Capillary refill takes less than 2 seconds. Neurological: General: No focal deficit present. Mental Status: She is alert and oriented to person, place, and time. Psychiatric: Mood and Affect: Mood normal. Behavior: Behavior normal. Assessment: Hospital Problems Last Modified POA * (Principal) Nephrolithiasis 07/23/2022 Yes Plan: Nephrolithiasis appreciate urology recommendations. Augmentin on discharge HTN improved. Lopressor Echo outpatient. Follow up with PCP Patient not interested in diuretic Discharge planning today after magnesium Luis Manuel Sam MD 07/24/2022 8:09 AM * Jae Bonds MD - 07/24/2022 7:14 AM EST Urology Progress Note Subjective: Jerrica Rock is a 86 y.o. female. His/Her current Diet is: ADULT DIET; Regular. Since the previous note, the patient reports the following: No acute issues overnight. No fevers or chills. No nausea or vomiting. No pain Tolerating PO Diet. Vitals and Labs: Vitals: 07/23/22 2351 07/24/22 0007 07/24/22 0025 07/24/22 0315 BP: (!) 142/95 138/69 Pulse: (!) 128 (!) 126 75 77 Resp: 23 25 25 Temp: 98.2 F (36.8 C) TempSrc: Axillary SpO2: 95% 95% 95% Weight: I/O last 3 completed shifts: In: 81.3 [I.V.:81.3] Out: 50 [Urine:50] Recent Labs 07/23/22 1012 07/24/22 0434 WBC 33.4* 21.2* HGB 11.6* 12.0 HCT 36.4 37.6 MCV 90.5 89.3 PLT See Reflexed IPF Result See Reflexed IPF Result Recent Labs 07/23/22 1011 07/24/22 0434 NA 139 140 K 4.3 3.6* CL 109* 107 CO2 21 21 BUN 19 16 CREATININE 0.87 0.76 No results for input(s): COLORU, PHUR, LABCAST, WBCUA, RBCUA, MUCUS, TRICHOMONAS, YEAST, BACTERIA, CLARITYU, SPECGRAV, LEUKOCYTESUR, UROBILINOGEN, BILIRUBINUR, BLOODU in the last 72 hours. Invalid input(s): NITRATE, GLUCOSEUKETONESUAMORPHOUS Physical Exam: NAD A/O x 3 RRR No accessory muscles of inspiration Abdomen soft, non-tender, non-distended. No CVA tenderness. No pope No calf pain. Impression: 86 yo female with Right ureteral stone s/p right ureteral stent placement 07/23/2022 Patient Active Problem List Diagnosis Nephrolithiasis Recurrent pyelonephritis Plan: Follow up PVR Continue IV antibiotics - currently on IV ceftriaxone, eventual discharge on culture specific oral antibiotics Follow up urine culture Maintain ureteral stent, patient will undergo definitive stone therapy in 1 to 2 weeks Please call urology for any further questions Jae Bonds MD 7:14 AM 07/24/2022 * Cristy Manuel DO - 07/23/2022 9:53 AM EST This patient was assigned to me by error. This patient was never interviewed nor examined by me. I did not participate in the care of this patient. Cristy Manuel, PGY-3 documented in this encounterBON [employer] Work Phone: 1([phone]) 804-132211-28-2022 Hospital Discharge instructions Patient Education 06/23/2022 09:30:26 Fecal Incontinence Fecal Incontinence Fecal incontinence, also called accidental bowel leakage, is not being able to control your bowels.This condition happens because the nerves or muscles around the anus do not work the way they should. This affects their ability to hold stool (feces). What are the causes? This condition may be caused by: Damage to the muscles at the end of the rectum (sphincter). Damage to the nerves that control bowel movements. Diarrhea. Chronic constipation. Pelvic floor dysfunction. This means the muscles in the pelvis do not work well. Loss of bowel storage capacity. This occurs when the rectum can no longer stretch in size in order to store feces. Inflammatory bowel disease (IBD), such as Crohn's disease. Irritable bowel syndrome (IBS). What increases the risk? You are more likely to develop this condition if you: Were born with bowels or a pelvis that did not form correctly. Have had rectal surgery. Have had radiation treatment for certain cancers. Have been , had a vaginal delivery, or had surgery that damaged the pelvic floor muscles. Had a complicated childbirth, spinal cord injury, or other trauma that caused nerve damage. Have a condition that can affect nerve function, such as diabetes, Parkinson's disease, or multiplesclerosis. Have a condition where the rectum drops down into the anus or vagina (prolapse). Are 65 years of age or older. What are the signs or symptoms? The main symptom of this condition is not being able to control your bowels. You also might not be able to get to the bathroom before a bowel movement. How is this diagnosed? This condition is diagnosed with a medical history and physical exam. You may also have other tests, including: Blood tests. Urine tests. A rectal exam. Ultrasound. MRI. Colonoscopy. This is an exam that looks at your large intestine (colon). Anal manometry. This is a test that measures the strength of the anal sphincter. Anal electromyogram (EMG). This is a test that uses small electrodes to check for nerve damage. How is this treated? Treatment for this condition depends on the cause and severity. Treatment may also focus on addressing any underlying causes of this condition. Treatment may include: Medicines. This may include medicines to: ?Prevent diarrhea. ?Help with constipation (bulk-forming laxatives). ?Treat any underlying conditions. Biofeedback therapy. This can help to retrain muscles that are affected. Fiber supplements. These can help manage your bowel movements. Nerve stimulation. Injectable gel to promote tissue growth and better muscle control. Surgery. You may need: ?Sphincter repair surgery. ?Diversion surgery. This procedure lets feces pass out of your body through a hole in your abdomen. Follow these instructions at home: Eating and drinking Follow instructions from your health care provider about any eating or drinking restrictions. ?Work with a dietitian to come up with a healthy diet that will help you avoid the foods that can make your condition worse. ?Keep a diet diary to find out which foods or drinks could be making your condition worse. Drink enough fluid to keep your urine pale yellow. Lifestyle Do not use any products that contain nicotine or tobacco, such as cigarettes and e-cigarettes. If you need help quitting, ask your health care provider. This may help your condition. If you are overweight, talk with your health care provider about how to safely lose weight. This may help your condition. Increase your physical activity as told by your health care provider. This may help your condition.Always talk with your health care provider before starting a new exercise program. Carry a change of clothes and supplies to clean up quickly if you have an episode of incontinence. Consider joining a fecal incontinence support group. You can find a support group online or in yourcal community. General instructions Take ouws-lvu-roeieen and prescription medicines only as told by your health care provider. This includes any supplements. Apply a moisture barrier, such as petroleum jelly, to your rectum. This protects the skin from irritation caused by ongoing leaking or diarrhea. Tell your health care provider if you are upset or depressed about your condition. Keep all follow-up visits as told by your health care provider. This is important. Where to find more information [employer]intestinal [employer]: iffgd.org [employer]: patients.gi.org Contact a health care provider if: You have a fever. You have redness, swelling, or pain around your rectum. Your pain is getting worse or you lose feeling in your rectal area. You have blood in your stool. You feel sad or hopeless. You avoid social or work situations. Get help right away if: You stop having bowel movements. You cannot eat or drink without vomiting. You have rectal bleeding that does not stop. You have severe pain that is getting worse. You have symptoms of dehydration, including: ?Sleepiness or fatigue. ?Producing little or no urine, tears, or sweat. ?Dizziness. ?Dry mouth. ?Unusual irritability. ?Headache. ?Inability to think clearly. Summary Fecal incontinence, also called accidental bowel leakage, is not being able to control your bowels.This condition happens because the nerves or muscles around the anus do not work the way they should. Treatment varies depending on the cause and severity of your condition. Treatment may also focus onaddressing any underlying causes of this condition. Follow instructions from your health care provider about any eating or drinking restrictions, lifestyle changes, and skin care. Take euma-pek-ykawrzz and prescription medicines only as told by your health care provider. This includes any supplements. Tell your health care provider if your symptoms worsen or if you are upset or depressed about your condition. This information is not intended to replace advice given to you by your health care provider. Make sure you discuss any questions you have with your health care provider. Document Released: 06/24/2005 Document Revised: 11/25/2018 Document Reviewed: 11/25/2018 [place] Patient Education 2020 [employer]. Follow Up Care 06/12/2022 14:01:13 With:Tammy Cantu CNP Address: When:3 months [facility] 11-15-2022 Evaluation note* Encounter Date Diagnosis Assessment Notes Treatment Notes Treatment Clinical Notes May, Cough (ICD-10 - R05.9) May, Lower respiratory infection (ICD-10 - J22) Advised patient that COVID PCR and rapid Influenza A/B tests were negative. Discussed diagnosis with patient in detail. Advised patient that cough may linger for 3 weeks. Will treat today with antibiotic. Reviewed allergies and recent antibiotic use. Advised to take medications as prescribed, reviewed side effects of steroid, take with food and plenty of water, finish entire course. Encouraged supportive care as directed, push fluids and rest, may use Tylenol as needed for fever/discomfort, cool mist humidifier. May use Tessalon Perles as needed. Patient to follow up with PCP in 2-3 days. Immediate eval if SOB, difficulty breathing, chest pain, dizziness, or other concerning symptoms. Patient verbalizes understanding and is agreeable to treatment plan [employer] Other 08-31-2022 Hospital Discharge instructions Patient Education 03/26/2022 12:33:34 Urinary Tract Infection, Adult, Qlgd-[id number] Urinary Tract Infection, Adult A urinary tract infection (UTI) is an infection of any part of the urinary tract. The urinary tractincludes: The kidneys. The ureters. The bladder. The urethra. These organs make, store, and get rid of pee (urine) in the body. What are the causes? This is caused by germs (bacteria) in your genital area. These germs grow and cause swelling (inflammation) of your urinary tract. What increases the risk? You are more likely to develop this condition if: You have a small, thin tube (catheter) to drain pee. You cannot control when you pee or poop (incontinence). You are female, and: ?You use these methods to prevent : ?A medicine that kills sperm (spermicide). ?A device that blocks sperm (diaphragm). ?You have low levels of a female hormone (estrogen). ?You are . You have genes that add to your risk. You are sexually active. You take antibiotic medicines. You have trouble peeing because of: ?A prostate that is bigger than normal, if you are male. ?A blockage in the part of your body that drains pee from the bladder (urethra). ?A kidney stone. ?A nerve condition that affects your bladder (neurogenic bladder). ?Not getting enough to drink. ?Not peeing often enough. You have other conditions, such as: ?Diabetes. ?A weak disease-fighting system (immune system). ?Sickle cell disease. ?Gout. ?Injury of the spine. What are the signs or symptoms? Symptoms of this condition include: Needing to pee right away (urgently). Peeing often. Peeing small amounts often. Pain or burning when peeing. Blood in the pee. Pee that smells bad or not like normal. Trouble peeing. Pee that is cloudy. Fluid coming from the vagina, if you are female. Pain in the belly or lower back. Other symptoms include: Throwing up (vomiting). No urge to eat. Feeling mixed up (confused). Being tired and grouchy (irritable). A fever. Watery poop (diarrhea). How is this treated? This condition may be treated with: Antibiotic medicine. Other medicines. Drinking enough water. Follow these instructions at home: Medicines Take cnld-sel-ppcnyfi and prescription medicines only as told by your doctor. If you were prescribed an antibiotic medicine, take it as told by your doctor. Do not stop taking it even if you start to feel better. General instructions Make sure you: ?Pee until your bladder is empty. ?Do not hold pee for a long time. ?Empty your bladder after sex. ?Wipe from front to back after pooping if you are a female. Use each tissue one time when you wipe. Drink enough fluid to keep your pee pale yellow. Keep all follow-up visits as told by your doctor. This is important. Contact a doctor if: You do not get better after 1 2 days. Your symptoms go away and then come back. Get help right away if: You have very bad back pain. You have very bad pain in your lower belly. You have a fever. You are sick to your stomach (nauseous). You are throwing up. Summary A urinary tract infection (UTI) is an infection of any part of the urinary tract. This condition is caused by germs in your genital area. There are many risk factors for a UTI. These include having a small, thin tube to drain pee and notbeing able to control when you pee or poop. Treatment includes antibiotic medicines for germs. Drink enough fluid to keep your pee pale yellow. This information is not intended to replace advice given to you by your health care provider. Make sure you discuss any questions you have with your health care provider. Document Released: 12/29/2008 Document Revised: 06/30/2019 Document Reviewed: 01/20/2019 [place] Patient Education 2020 [employer]. Follow Up Care 03/24/2022 13:26:12 With:WAYNE CHERY, Yelena Howard, [facility] Address: [facility] [address], [place] [address]- When: Unknown Comments:at regular appt but sooner if needed. [facility] 06-28-2022 Hospital Discharge instructions Patient Education 01/21/2022 13:43:05 Mammogram Mammogram A mammogram is a low energy X-ray of the breasts that is done to check for abnormal changes. This procedure can screen for and detect any changes that may indicate breast cancer. Mammograms are regularly done on women. A man may have a mammogram if he has a lump or swelling in his breast. A mammogram can also identify other changes and variations in the breast, such as: Inflammation of the breast tissue (mastitis). An infected area that contains a collection of pus (abscess). A fluid-filled sac (cyst). Fibrocystic changes. This is when breast tissue becomes denser, which can make the tissue feel rope-like or uneven under the skin. Tumors that are not cancerous (benign). Tell a health care provider: About any allergies you have. If you have breast implants. If you have had previous breast disease, biopsy, or surgery. If you are . If you are younger than age 25. If you have a family history of breast cancer. Whether you are or may be . What are the risks? Generally, this is a safe procedure. However, problems may occur, including: Exposure to radiation. Radiation levels are very low with this test. The results being misinterpreted. The need for further tests. The inability of the mammogram to detect certain cancers. What happens before the procedure? Schedule your test about 1 2 weeks after your menstrual period if you are still menstruating. This is usually when your breasts are the least tender. If you have had a mammogram done at a different facility in the past, get the mammogram X-rays or have them sent to your current exam facility. The new and old images will be compared. Wash your breasts and underarms on the day of the test. Do not wear deodorants, perfumes, lotions, or powders anywhere on your body on the day of the test. Remove any jewelry from your neck. Wear clothes that you can change into and out of easily. What happens during the procedure? You will undress from the waist up and put on a gown that opens in the front. You will management engineer front of the X-ray machine. Each breast will be placed between two plastic or glass plates. The plates will compress your breast for a few seconds. Try to stay as relaxed as possible during the procedure. This does not cause any harm to your breasts and any discomfort you feel will be very brief. X-rays will be taken from different angles of each breast. The procedure may vary among health care providers and hospitals. What happens after the procedure? The mammogram will be examined by a specialist (radiologist). You may need to repeat certain parts of the test, depending on the quality of the images. This is commonly done if the radiologist needs a better view of the breast tissue. You may resume your normal activities. It is up to you to get the results of your procedure. Ask your health care provider, or the department that is doing the procedure, when your results will be ready. Summary A mammogram is a low energy X-ray of the breasts that is done to check for abnormal changes. A man may have a mammogram if he has a lump or swelling in his breast. If you have had a mammogram done at a different facility in the past, get the mammogram X-rays or have them sent to your current exam facility in order to compare them. Schedule your test about 1 2 weeks after your menstrual period if you are still menstruating. For this test, each breast will be placed between two plastic or glass plates. The plates will compress your breast for a few seconds. Ask when your test results will be ready. Make sure you get your test results. This information is not intended to replace advice given to you by your health care provider. Make sure you discuss any questions you have with your health care provider. Document Released: 07/10/2001 Document Revised: 03/03/2019 Document Reviewed: 03/03/2019 [place] Patient Education 2020 [employer]. 01/21/2022 13:43:00 Osteopenia Osteopenia Osteopenia is a loss of thickness (density) inside of the bones. Another name for osteopenia is lowbone mass. Mild osteopenia is a normal part of aging. It is not a disease, and it does not cause symptoms. However, if you have osteopenia and continue to lose bone mass, you could develop a condition that causes the bones to become thin and break more easily (osteoporosis). You may also lose some height, have back pain, and have a stooped posture. Although osteopenia is not a disease, making changes to your lifestyle and diet can help to prevent osteopenia from developing into osteoporosis. What are the causes? Osteopenia is caused by loss of calcium in the bones. Bones are constantly changing. Old bone cells are continually being replaced with new bone cells. This process builds new bone. The mineral calcium is needed to build new bone and maintain bone density. Bone density is usually highest around age 35. After that, most people's bodies cannot replace all the bone they have lost with new bone. What increases the risk? You are more likely to develop this condition if: You are older than age 50. You are a woman who went through menopause early. You have a long illness that keeps you in bed. You do not get enough exercise. You lack certain nutrients (malnutrition). You have an overactive thyroid gland (hyperthyroidism). You smoke. You drink a lot of alcohol. You are taking medicines that weaken the bones, such as steroids. What are the signs or symptoms? This condition does not cause any symptoms. You may have a slightly higher risk for bone breaks (fractures), so getting fractures more easily than normal may be an indication of osteopenia. How is this diagnosed? Your health care provider can diagnose this condition with a special type of X- ray exam that measures bone density (dual-energy X-ray absorptiometry, DEXA). This test can measure bone density in yourhips, spine, and wrists. Osteopenia has no symptoms, so this condition is usually diagnosed after a routine bone density screening test is done for osteoporosis. This routine screening is usually done for: Women who are age 65 or older. Men who are age 70 or older. If you have risk factors for osteopenia, you may have the screening test at an earlier age. How is this treated? Making dietary and lifestyle changes can lower your risk for osteoporosis. If you have severe osteopenia that is close to becoming osteoporosis, your health care provider may prescribe medicines and dietary supplements such as calcium and vitamin D. These supplements help to rebuild bone density. Follow these instructions at home: Take uyxs-ptl-uzixxap and prescription medicines only as told by your health care provider. These include vitamins and supplements. Eat a diet that is high in calcium and vitamin D. ?Calcium is found in dairy products, beans, salmon, and leafy green vegetables like spinach and broccoli. ?Look for foods that have vitamin D and calcium added to them (fortified foods), such as orange juice, cereal, and bread. Do 30 or more minutes of a weight-bearing exercise every day, such as walking, jogging, or playing a sport. These types of exercises strengthen the bones. Take precautions at home to lower your risk of falling, such as: ?Keeping rooms well-lit and free of clutter, such as cords. ?Installing safety rails on stairs. ?Using rubber mats in the bathroom or other areas that are often wet or slippery. Do not use any products that contain nicotine or tobacco, such as cigarettes and e-cigarettes. If you need help quitting, ask your health care provider. Avoid alcohol or limit alcohol intake to no more than 1 drink a day for non women and 2 drinks a day for men. One drink equals 12 oz of beer, 5 oz of wine, or 1 oz of hard liquor. Keep all follow-up visits as told by your health care provider. This is important. Contact a health care provider if: You have not had a bone density screening for osteoporosis and you are: ?A woman, age 65 or older. ?A man, age 70 or older. You are a postmenopausal woman who has not had a bone density screening for osteoporosis. You are older than age 50 and you want to know if you should have bone density screening for osteoporosis. Summary Osteopenia is a loss of thickness (density) inside of the bones. Another name for osteopenia is lowbone mass. Osteopenia is not a disease, but it may increase your risk for a condition that causes the bones tobecome thin and break more easily (osteoporosis). You may be at risk for osteopenia if you are older than age 50 or if you are a woman who went through early menopause. Osteopenia does not cause any symptoms, but it can be diagnosed with a bone density screening test. Dietary and lifestyle changes are the first treatment for osteopenia. These may lower your risk forosteoporosis. This information is not intended to replace advice given to you by your health care provider. Make sure you discuss any questions you have with your health care provider. Document Released: 04/21/2018 Document Revised: 06/25/2018 Document Reviewed: 04/21/2018 [place] Patient Education 2020 [employer]. 01/21/2022 13:42:44 DASH Eating Plan DASH Eating Plan DASH stands for Dietary Approaches to Stop Hypertension. The DASH eating plan is a healthy eatingplan that has been shown to reduce high blood pressure (hypertension). It may also reduce your riskfor type 2 diabetes, heart disease, and stroke. The DASH eating plan may also help with weight loss. What are tips for following this plan? General guidelines Avoid eating more than 2,300 mg (milligrams) of salt (sodium) a day. If you have hypertension, you may need to reduce your sodium intake to 1,500 mg a day. Limit alcohol intake to no more than 1 drink a day for non women and 2 drinks a day for men. One drink equals 12 oz of beer, 5 oz of wine, or 1 oz of hard liquor. Work with your health care provider to maintain a healthy body weight or to lose weight. Ask what an ideal weight is for you. Get at least 30 minutes of exercise that causes your heart to beat faster (aerobic exercise) most days of the week. Activities may include walking, swimming, or biking. Work with your health care provider or diet and child nutrition assistant (dietitian) to adjust your eating plan to your individual calorie needs. Reading food labels Check food labels for the amount of sodium per serving. Choose foods with less than 5 percent of the Daily Value of sodium. Generally, foods with less than 300 mg of sodium per serving fit into this eating plan. To find whole grains, look for the word whole as the first word in the ingredient list. Shopping Buy products labeled as low-sodium or no salt added. Buy fresh foods. Avoid canned foods and premade or frozen meals. Cooking Avoid adding salt when cooking. Use salt-free seasonings or herbs instead of table salt or sea salt. Check with your health care provider or pharmacist before using salt substitutes. Do not grace foods. Cook foods using healthy methods such as baking, boiling, grilling, and broiling instead. Cook with heart-healthy oils, such as olive, canola, soybean, or sunflower oil. Meal planning Eat a balanced diet that includes: ?5 or more servings of fruits and vegetables each day. At each meal, try to fill half of your platewith fruits and vegetables. ?Up to 6 8 servings of whole grains each day. ?Less than 6 oz of lean meat, poultry, or fish each day. A 3-oz serving of meat is about the same size as a deck of cards. One egg equals 1 oz. ?2 servings of low-fat dairy each day. ?A serving of nuts, seeds, or beans 5 times each week. ?Heart-healthy fats. Healthy fats called [place]-3 fatty acids are found in foods such as flaxseeds and coldwater fish, like sardines, salmon, and mackerel. Limit how much you eat of the following: ?Canned or prepackaged foods. ?Food that is high in trans fat, such as fried foods. ?Food that is high in saturated fat, such as fatty meat. ?Sweets, desserts, sugary drinks, and other foods with added sugar. ?Full-fat dairy products. Do not salt foods before eating. Try to eat at least 2 vegetarian meals each week. Eat more home-cooked food and less restaurant, buffet, and fast food. When eating at a restaurant, ask that your food be prepared with less salt or no salt, if possible. What foods are recommended? The items listed may not be a complete list. Talk with your dietitian about what dietary choices are best for you. Grains Whole-grain or whole-wheat bread. Whole-grain or whole-wheat pasta. Brown rice. Oatmeal. Quinoa. Bulgur. Whole-grain and low-sodium cereals. Aaliyah bread. Low- fat, low-sodium crackers. Whole-wheat flour tortillas. Vegetables Fresh or frozen vegetables (raw, steamed, roasted, or grilled). Low-sodium or reduced-sodium tomatoand vegetable juice. Low-sodium or reduced-sodium tomato sauce and tomato paste. Low-sodium or reduced-sodium canned vegetables. Fruits All fresh, dried, or frozen fruit. Canned fruit in natural juice (without added sugar). Meat and other protein foods Skinless chicken or turkey. Ground chicken or turkey. Pork with fat trimmed off. Fish and seafood. Egg whites. Dried beans, peas, or lentils. Unsalted nuts, nut butters, and seeds. Unsalted canned beans. Lean cuts of beef with fat trimmed off. Low-sodium, lean deli meat. Dairy Low-fat (1%) or fat-free (skim) milk. Fat-free, low-fat, or reduced-fat cheeses. Nonfat, low-sodiumricotta or cottage cheese. Low-fat or nonfat yogurt. Low-fat, low-sodium cheese. Fats and oils Soft margarine without trans fats. Vegetable oil. Low-fat, reduced-fat, or light mayonnaise and salad dressings (reduced-sodium). Canola, safflower, olive, soybean, and sunflower oils. Avocado. Seasoning and other foods Herbs. Spices. Seasoning mixes without salt. Unsalted popcorn and pretzels. Fat- free sweets. What foods are not recommended? The items listed may not be a complete list. Talk with your dietitian about what dietary choices are best for you. Grains Baked goods made with fat, such as croissants, muffins, or some breads. Dry pasta or rice meal packs. Vegetables Creamed or fried vegetables. Vegetables in a cheese sauce. Regular canned vegetables (not low-sodium or reduced-sodium). Regular canned tomato sauce and paste (not low-sodium or reduced-sodium). Regular tomato and vegetable juice (not low-sodium or reduced-sodium). Pickles. Olives. Fruits Canned fruit in a light or heavy syrup. Fried fruit. Fruit in cream or butter sauce. Meat and other protein foods Fatty cuts of meat. Ribs. Fried meat. Davis. Sausage. Bologna and other processed lunch meats. Salami. Fatback. Hotdogs. Bratwurst. Salted nuts and seeds. Canned beans with added salt. Canned or smoked fish. Whole eggs or egg yolks. Chicken or turkey with skin. Dairy Whole or 2% milk, cream, and ewnw-jxo-epyj. Whole or full-fat cream cheese. Whole-fat or sweetened yogurt. Full-fat cheese. Nondairy creamers. Whipped toppings. Processed cheese and cheese spreads. Fats and oils Butter. Stick margarine. Lard. Shortening. Ghee. Davis fat. Tropical oils, such as coconut, palm kernel, or palm oil. Seasoning and other foods Salted popcorn and pretzels. Onion salt, garlic salt, seasoned salt, table salt, and sea salt. Worcestershire sauce. Tartar sauce. Barbecue sauce. Teriyaki sauce. Soy sauce, including reduced-sodium.Steak sauce. Canned and packaged gravies. Fish sauce. Oyster sauce. Cocktail sauce. Horseradish that you find on the shelf. Ketchup. Mustard. Meat flavorings and tenderizers. Bouillon cubes. Hot sauce and Tabasco sauce. Premade or packaged marinades. Premade or packaged taco seasonings. Relishes. Regular salad dressings. Where to find more information: National Heart, Lung, and Blood [place]: www.nhlbi.nih.gov [place] [employer]: www.heart.org Summary The DASH eating plan is a healthy eating plan that has been shown to reduce high blood pressure (hypertension). It may also reduce your risk for type 2 diabetes, heart disease, and stroke. With the DASH eating plan, you should limit salt (sodium) intake to 2,300 mg a day. If you have hypertension, you may need to reduce your sodium intake to 1,500 mg a day. When on the DASH eating plan, aim to eat more fresh fruits and vegetables, whole grains, lean proteins, low-fat dairy, and heart-healthy fats. Work with your health care provider or diet and child nutrition assistant (dietitian) to adjust your eating plan to your individual calorie needs. This information is not intended to replace advice given to you by your health care provider. Make sure you discuss any questions you have with your health care provider. Document Released: 07/01/2012 Document Revised: 06/25/2018 Document Reviewed: 07/06/2017 [place] Patient Education 2020 [employer]. 01/21/2022 13:42:40 BMI for Adults BMI for Adults Body mass index (BMI) is a number that is calculated from a person's weight and height. BMI may help to estimate how much of a person's weight is composed of fat. BMI can help identify those who may be at higher risk for certain medical problems. How is BMI used with adults? BMI is used as a screening tool to identify possible weight problems. It is used to check whether aperson is obese, overweight, healthy weight, or underweight. How is BMI calculated? BMI measures your weight and compares it to your height. This can be done either in [place] or metric measurements. Note that charts are available to help you find your BMI quickly and easily without having to do these calculations yourself. To calculate your BMI in [place] measurements, your health care provider will: 1.Measure your weight in pounds (lb). 2.Multiply the number of pounds by 703. For example, for a person who weighs 180 lb, multiply that number by 703, which equals 126,540. 3.Measure your height in inches (in). Then multiply that number by itself to get a measurement called inches squared. For example, for a person who is 70 in tall, the inches squared measurement is 70 in x 70 in, which equals 4900 inches squared. 4.Divide the total from Step 2 (number of lb x 703) by the total from Step 3 (inches squared): 126,540 4900 = 25.8. This is your BMI. To calculate your BMI in metric measurements, your health care provider will: 1.Measure your weight in kilograms (kg). 2.Measure your height in meters (m). Then multiply that number by itself to get a measurement called meters squared. For example, for a person who is 1.75 m tall, the meters squared measurement is 1.75 m x 1.75 m, which is equal to 3.1 meters squared. 3.Divide the number of kilograms (your weight) by the meters squared number. In this example: 70 3.1 = 22.6. This is your BMI. How is BMI interpreted? To interpret your results, your health care provider will use BMI charts to identify whether you are underweight, normal weight, overweight, or obese. The following guidelines will be used: Underweight: BMI less than 18.5. Normal weight: BMI between 18.5 and 24.9. Overweight: BMI between 25 and 29.9. Obese: BMI of 30 and above. Please note: Weight includes both fat and muscle, so someone with a muscular build, such as an athlete, may havea BMI that is higher than 24.9. In cases like these, BMI is not an accurate measure of body fat. To determine if excess body fat is the cause of a BMI of 25 or higher, further assessments may needto be done by a health care provider. BMI is usually interpreted in the same way for men and women. Why is BMI a useful tool? BMI is useful in two ways: Identifying a weight problem that may be related to a medical condition, or that may increase the risk for medical problems. Promoting lifestyle and diet changes in order to reach a healthy weight. Summary Body mass index (BMI) is a number that is calculated from a person's weight and height. BMI may help to estimate how much of a person's weight is composed of fat. BMI can help identify those who may be at higher risk for certain medical problems. BMI can be measured using [place] measurements or metric measurements. To interpret your results, your health care provider will use BMI charts to identify whether you are underweight, normal weight, overweight, or obese. This information is not intended to replace advice given to you by your health care provider. Make sure you discuss any questions you have with your health care provider. Document Released: 03/24/2005 Document Revised: 06/25/2018 Document Reviewed: 05/26/2018 [employer] Patient Education 2019 [employer]. [facility] 06-24-2022 Hospital Discharge instructions Patient Education 01/17/2022 11:45:55 Hypertension, Adult, Hiqh-mi-Nsyg Hypertension, Adult Hypertension is another name for high blood pressure. High blood pressure forces your heart to workharder to pump blood. This can cause problems over time. There are two numbers in a blood pressure reading. There is a top number (systolic) over a bottom number (diastolic). It is best to have a blood pressure that is below 120/80. Healthy choices can help lower your blood pressure, or you may need medicine to help lower it. What are the causes? The cause of this condition is not known. Some conditions may be related to high blood pressure. What increases the risk? Smoking. Having type 2 diabetes mellitus, high cholesterol, or both. Not getting enough exercise or physical activity. Being overweight. Having too much fat, sugar, calories, or salt (sodium) in your diet. Drinking too much alcohol. Having long-term (chronic) kidney disease. Having a family history of high blood pressure. Age. Risk increases with age. Race. You may be at higher risk if you are . Gender. Men are at higher risk than women before age 45. After age 65, women are at higher risk than men. Having obstructive sleep apnea. Stress. What are the signs or symptoms? High blood pressure may not cause symptoms. Very high blood pressure (hypertensive crisis) may cause: ?Headache. ?Feelings of worry or nervousness (anxiety). ?Shortness of breath. ?Nosebleed. ?A feeling of being sick to your stomach (nausea). ?Throwing up (vomiting). ?Changes in how you see. ?Very bad chest pain. ?Seizures. How is this treated? This condition is treated by making healthy lifestyle changes, such as: ?Eating healthy foods. ?Exercising more. ?Drinking less alcohol. Your health care provider may prescribe medicine if lifestyle changes are not enough to get your blood pressure under control, and if: ?Your top number is above 130. ?Your bottom number is above 80. Your personal target blood pressure may vary. Follow these instructions at home: Eating and drinking If told, follow the DASH eating plan. To follow this plan: ?Fill one half of your plate at each meal with fruits and vegetables. ?Fill one fourth of your plate at each meal with whole grains. Whole grains include whole-wheat pasta, brown rice, and whole-grain bread. ?Eat or drink low-fat dairy products, such as skim milk or low-fat yogurt. ?Fill one fourth of your plate at each meal with low-fat (lean) proteins. Low- fat proteins include fish, chicken without skin, eggs, beans, and tofu. ?Avoid fatty meat, cured and processed meat, or chicken with skin. ?Avoid pre-made or processed food. Eat less than 1,500 mg of salt each day. Do not drink alcohol if: ?Your doctor tells you not to drink. ?You are , may be , or are planning to become . If you drink alcohol: ?Limit how much you use to: ?0 1 drink a day for women. ?0 2 drinks a day for men. ?Be aware of how much alcohol is in your drink. In the [place] one drink equals one 12 oz bottle of beer (355 mL), one 5 oz glass of wine (148 mL), or one 1 oz glass of hard liquor (44 mL). Lifestyle Work with your doctor to stay at a healthy weight or to lose weight. Ask your doctor what the best weight is for you. Get at least 30 minutes of exercise most days of the week. This may include walking, swimming, or biking. Get at least 30 minutes of exercise that strengthens your muscles (resistance exercise) at least 3 days a week. This may include lifting weights or doing Pilates. Do not use any products that contain nicotine or tobacco, such as cigarettes, e- cigarettes, and chewing tobacco. If you need help quitting, ask your doctor. Check your blood pressure at home as told by your doctor. Keep all follow-up visits as told by your doctor. This is important. Medicines Take kfwq-xii-dikdqkz and prescription medicines only as told by your doctor. Follow directions carefully. Do not skip doses of blood pressure medicine. The medicine does not work as well if you skip doses.Skipping doses also puts you at risk for problems. Ask your doctor about side effects or reactions to medicines that you should watch for. Contact a doctor if you: Think you are having a reaction to the medicine you are taking. Have headaches that keep coming back (recurring). Feel dizzy. Have swelling in your ankles. Have trouble with your vision. Get help right away if you: Get a very bad headache. Start to feel mixed up (confused). Feel weak or numb. Feel faint. Have very bad pain in your: ?Chest. ?Belly (abdomen). Throw up more than once. Have trouble breathing. Summary Hypertension is another name for high blood pressure. High blood pressure forces your heart to work harder to pump blood. For most people, a normal blood pressure is less than 120/80. Making healthy choices can help lower blood pressure. If your blood pressure does not get lower with healthy choices, you may need to take medicine. This information is not intended to replace advice given to you by your health care provider. Make sure you discuss any questions you have with your health care provider. Document Released: 12/29/2008 Document Revised: 03/23/2019 Document Reviewed: 03/23/2019 [employer] Patient Education 2020 [employer] Follow Up Care 09/19/2021 11:33:52 With:WAYNE CHERY, CHRISTIE Elizondo Address: [facility] [address], [place] [address]- When:Within 4 Month(s) [facility] 05-19-2022 Hospital Discharge instructions Patient Education 12/12/2021 10:49:56 Chronic Back Pain Chronic Back Pain When back pain lasts longer than 3 months, it is called chronic back pain. The cause of your back pain may not be known. Some common causes include: Wear and tear (degenerative disease) of the bones, ligaments, or disks in your back. Inflammation and stiffness in your back (arthritis). People who have chronic back pain often go through certain periods in which the pain is more intense (flare-ups). Many people can learn to manage the pain with home care. Follow these instructions at home: Pay attention to any changes in your symptoms. Take these actions to help with your pain: Activity Avoid bending and other activities that make the problem worse. Maintain a proper position when standing or sitting: ?When standing, keep your upper back and neck straight, with your shoulders pulled back. Avoid slouching. ?When sitting, keep your back straight and relax your shoulders. Do not round your shoulders or pull them backward. Do not sit or management engineer one place for long periods of time. Take brief periods of rest throughout the day. This will reduce your pain. Resting in a lying or standing position is usually better than sitting to rest. When you are resting for longer periods, mix in some mild activity or stretching between periods ofrest. This will help to prevent stiffness and pain. Get regular exercise. Ask your health care provider what activities are safe for you. Do not lift anything that is heavier than 10 lb (4.5 kg). Always use proper lifting technique, which includes: ?Bending your knees. ?Keeping the load close to your body. ?Avoiding twisting. Sleep on a firm mattress in a comfortable position. Try lying on your side with your knees slightlybent. If you lie on your back, put a pillow under your knees. Managing pain If directed, apply ice to the painful area. Your health care provider may recommend applying ice during the first 24 48 hours after a flare-up begins. ?Put ice in a plastic bag. ?Place a towel between your skin and the bag. ?Leave the ice on for 20 minutes, 2 3 times per day. If directed, apply heat to the affected area as often as told by your health care provider. Use theheat source that your health care provider recommends, such as a moist heat pack or a heating pad. ?Place a towel between your skin and the heat source. ?Leave the heat on for 20 30 minutes. ?Remove the heat if your skin turns bright red. This is especially important if you are unable to feel pain, heat, or cold. You may have a greater risk of getting burned. Try soaking in a warm tub. Take tebt-soc-rvzyiph and prescription medicines only as told by your health care provider. Keep all follow-up visits as told by your health care provider. This is important. Contact a health care provider if: You have pain that is not relieved with rest or medicine. Get help right away if: You have weakness or numbness in one or both of your legs or feet. You have trouble controlling your bladder or your bowels. You have nausea or vomiting. You have pain in your abdomen. You have shortness of breath or you faint. This information is not intended to replace advice given to you by your health care provider. Make sure you discuss any questions you have with your health care provider. Document Released: 08/20/2005 Document Revised: 11/03/2019 Document Reviewed: 01/20/2018 [employer] Patient Education 2020 [employer] Follow Up Care 11/28/2021 13:21:41 With:WAYNE CHERY, Yelena Howard, MED Address: [place] [address], [place] [address]- When: Unknown Comments:at regular appt but sooner if needed. [facility] 05-01-2022 Evaluation + Plan noteExtracted from: Title:ED Note Author:Cale Hoover DO Date: Lumbago (M54.50: Low back pa in, unspecified) Orders: cyclobenzaprine, 10 mg = 1 tab(s), Oral, TID, X 5 day(s), # 15 tab(s), Refills(s) 0, Pharmacy: [facility]/pharmacy #[id number], 165, cm, 11/24/21 8:54:00 EDT, Height/Length Dosing, 92.1, kg, 11/24/21 8:54:00 EDT, Weight Dosing lidocaine topical, 1 patch(es), Topical, Daily, 7 EA, Refill(s) 0, apply 12 hours on and 12 hours off daily, [id number], 165, cm, 11/24/21 8:54:00 EDT, Height/Length Dosing, 92.1, kg, 11/24/21 8:54:00 EDT, Weight Dosing lidocaine topical, 1 patch(es), Patch, TransDermal, Once, Stop date 11/24/21 9:14:00 EDT, STAT, Start date 11/24/21 9:14:00 EDT methylPREDNISolone, = 1 packet(s), Oral, As Directed, as directed on package labeling, X 6 day(s), # 21 tab(s), Refills(s) 0, Pharmacy: [facility]/pharmacy #[id number], 165, cm, 11/24/21 8:54:00 EDT, Height/Length Dosing, 92.1, kg, 11/24/21 8:54:00 EDT, Weight Dosing naproxen, 500 mg = 1 tab(s), Oral, BID, PRN for pain, # 20 tab(s), Refills(s) 0, Pharmacy: [facility]/pharmacy #[id number], 165, cm, 11/24/21 8:54:00 EDT, Height/Length Dosing, 92.1, kg, 11/24/21 8:54:00 EDT, Weight Dosing Future Appointments Appointment Date:12/05/2021 11:30:00 AM Scheduled Provider:Jeffrey Chacon MD Location:[facility] Appointment Type:Pain Management - Follow Up (FT) Appointment Date:01/17/2022 11:00:00 AM Scheduled Provider:Yelena MICHELLE MD Location:[facility] Appointment Type:FM Open Appointment Date:01/21/2022 11:00:00 AM Scheduled Provider: Location:[facility] Appointment Type:FM Medicare Wellness Subsequent [facility]05-01-2022 Hospital Discharge instructions Patient Education 11/24/2021 09:16:26 Sciatica Sciatica Sciatica is pain, numbness, weakness, or tingling along the path of the sciatic nerve. The sciatic nerve starts in the lower back and runs down the back of each leg. The nerve controls the muscles inthe lower leg and in the back of the knee. It also provides feeling (sensation) to the back of the thigh, the lower leg, and the sole of the foot. Sciatica is a symptom of another medical condition that pinches or puts pressure on the sciatic nerve. Sciatica most often only affects one side of the body. Sciatica usually goes away on its own or with treatment. In some cases, sciatica may come back (recur). What are the causes? This condition is caused by pressure on the sciatic nerve or pinching of the nerve. This may be theresult of: A disk in between the bones of the spine bulging out too far (herniated disk). Age-related changes in the spinal disks. A pain disorder that affects a muscle in the buttock. Extra bone growth near the sciatic nerve. A break (fracture) of the pelvis. . Tumor. This is rare. What increases the risk? The following factors may make you more likely to develop this condition: Playing sports that place pressure or stress on the spine. Having poor strength and flexibility. A history of back injury or surgery. Sitting for long periods of time. Doing activities that involve repetitive bending or lifting. Obesity. What are the signs or symptoms? Symptoms can vary from mild to very severe, and they may include: Any of these problems in the lower back, leg, hip, or buttock: ?Mild tingling, numbness, or dull aches. ?Burning sensations. ?Sharp pains. Numbness in the back of the calf or the sole of the foot. Leg weakness. Severe back pain that makes movement difficult. Symptoms may get worse when you cough, sneeze, or laugh, or when you sit or stand for long periods of time. How is this diagnosed? This condition may be diagnosed based on: Your symptoms and medical history. A physical exam. Blood tests. Imaging tests, such as: ?X-rays. ?MRI. ?CT scan. How is this treated? In many cases, this condition improves on its own without treatment. However, treatment may include: Reducing or modifying physical activity. Exercising and stretching. Icing and applying heat to the affected area. Medicines that help to: ?Relieve pain and swelling. ?Relax your muscles. Injections of medicines that help to relieve pain, irritation, and inflammation around the sciatic nerve (steroids). Surgery. Follow these instructions at home: Medicines Take mxqj-gnq-hciknkd and prescription medicines only as told by your health care provider. Ask your health care provider if the medicine prescribed to you: ?Requires you to avoid driving or using heavy machinery. ?Can cause constipation. You may need to take these actions to prevent or treat constipation: ?Drink enough fluid to keep your urine pale yellow. ?Take kmee-ets-srlpdmg or prescription medicines. ?Eat foods that are high in fiber, such as beans, whole grains, and fresh fruits and vegetables. ?Limit foods that are high in fat and processed sugars, such as fried or sweet foods. Managing pain If directed, put ice on the affected area. ?Put ice in a plastic bag. ?Place a towel between your skin and the bag. ?Leave the ice on for 20 minutes, 2 3 times a day. If directed, apply heat to the affected area. Use the heat source that your health care provider recommends, such as a moist heat pack or a heating pad. ?Place a towel between your skin and the heat source. ?Leave the heat on for 20 30 minutes. ?Remove the heat if your skin turns bright red. This is especially important if you are unable to feel pain, heat, or cold. You may have a greater risk of getting burned. Activity Return to your normal activities as told by your health care provider. Ask your health care provider what activities are safe for you. Avoid activities that make your symptoms worse. Take brief periods of rest throughout the day. ?When you rest for longer periods, mix in some mild activity or stretching between periods of rest.This will help to prevent stiffness and pain. ?Avoid sitting for long periods of time without moving. Get up and move around at least one time each hour. Exercise and stretch regularly, as told by your health care provider. Do not lift anything that is heavier than 10 lb (4.5 kg) while you have symptoms of sciatica. When you do not have symptoms, you should still avoid heavy lifting, especially repetitive heavy lifting. When you lift objects, always use proper lifting technique, which includes: ?Bending your knees. ?Keeping the load close to your body. ?Avoiding twisting. General instructions Maintain a healthy weight. Excess weight puts extra stress on your back. Wear supportive, comfortable shoes. Avoid wearing high heels. Avoid sleeping on a mattress that is too soft or too hard. A mattress that is firm enough to support your back when you sleep may help to reduce your pain. Keep all follow-up visits as told by your health care provider. This is important. Contact a health care provider if: You have pain that: ?Wakes you up when you are sleeping. ?Gets worse when you lie down. ?Is worse than you have experienced in the past. ?Lasts longer than 4 weeks. You have an unexplained weight loss. Get help right away if: You are not able to control when you urinate or have bowel movements (incontinence). You have: ?Weakness in your lower back, pelvis, buttocks, or legs that gets worse. ?Redness or swelling of your back. ?A burning sensation when you urinate. Summary Sciatica is pain, numbness, weakness, or tingling along the path of the sciatic nerve. This condition is caused by pressure on the sciatic nerve or pinching of the nerve. Sciatica can cause pain, numbness, or tingling in the lower back, legs, hips, and buttocks. Treatment often includes rest, exercise, medicines, and applying ice or heat. This information is not intended to replace advice given to you by your health care provider. Make sure you discuss any questions you have with your health care provider. Document Released: 07/07/2002 Document Revised: 08/01/2019 Document Reviewed: 08/01/2019 [employer] Patient Education 2020 [employer]. Follow Up Care 11/24/2021 08:45:02 With:Call the office of your pain management physician to discuss your back pain and arrange for follow-up. Address:Unknown When:11/27/2021 09:16:18 With:Yelena MICHELLE Address: [facility] [address], [place] [address]- Business (1) When:11/27/2021 09:15:54 Comments:Call the office of your primary care doctor to arrange for follow-up within the above-stated timeframe. Follow-up with your primary care doctor about this ED visit. You should review your labs, imaging, and diagnoses from this ED visit with your primary care physician. If you were prescribed medications you should discuss possible side-effects and drug interactions with your pharmacist. Call 911 or go to the nearest Emergency Department if you develop any new or worsening symptoms.Seek immediate medical attention if you develop: increasing pain, numbness, tingling, weakness, loss of motion inyour arms or legs, loss of control of your urine or stool, fever, abdominal pain, chest pain, shortness of breath, or any new or worsening symptoms. 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 She does have chronic low back pain. I have again suggested lumbar sacral injections with pain management. I hope she follows through with this. I independently reviewed the MRI of the lumbar spine and the reports; she overall has an adequate canal. There is some spondylosis at L4-5 with lateral recess narrowing but the patient has no radiculopathy. [employer] Other 12-14-2021 Evaluation note* Encounter Date Diagnosis Assessment Notes Treatment Notes Treatment Clinical Notes Jun, Status post bilatera l knee replacements (ICD-10 - Z96.653) Patient continues to have pain in left knee. Xrays reviewed with patient, there is no concerns of loosening or maltracking of the knee. No concernes for infection. Discussed that this pain could be secondary to arthritis and spondylolisthesis of back. Continue physical therapy exercises and TKA precautions. Instructed patient to call with any questions or concerns. Jun, Pes anserinus bursit is of left knee (ICD-10 - M70.52) Jun, Spondylolisthesis of lumbar region (ICD-10 - M43.16) MRI obtained earlier this year was breifly reviewed with patient. At this time we advise patient to continue follow up care from Dr. Asher, who has seen patient for this issue before. To call with questions or concerns. [employer] Other 12-01-2020 History general Narrative - Reported* Type Description Date Medical History Arthritis Medical History Bowel habit changes Medical History Acid reflux Medical History Macular degeneration Medical History Vertigo Surgical History bilateral TKA 06/2020 Surgical History ureteral stent Hospitalization History bronchitis [employer] Other Evaluation + Plan note Future Appointments Appointment Date:11/13/2021 11:45:00 AM Scheduled Provider: Jeana:[facility] Appointment Type:Surgery FT Appointment Date:12/05/2021 11:30:00 AM Scheduled Provider[facility] Type:Pain Management - Follow Up (FT) Appointment Date:01/17/2022 11:00:00 AM Scheduled Provider:Yelena MICHELLE MD Location:[facility] Appointment Type:FM Open Appointment Date:01/21/2022 11:00:00 AM Scheduled Provider: Location:[facility] Appointment Type:FM Medicare Wellness [facility] Future App[facility]ments Appointment Date:12/05/2021 11:30:00 AM Scheduled Provider:Jeffrey Chacon MD [facility] Type:Pain Management - Follow Up (FT) Appointment Date:01/17/2022 11:00:00 AM Scheduled Provider:Yelena MICHELLE MD Location:[facility] Appointment Type:FM Open Appointment Date:01/21/2022 11:00:00 AM Scheduled Provider: Location:[facility] Appointment Type:FM Medicare Wellness [facility]ments Appointment Date:12/12/2021 10:20:00 AM Scheduled Provider:Yelena MICHELLE MD Location:[facility] Appointment Type:FM ER/Hospital Follow Up Appointment Date:01/17/2022 11:00:00 AM Scheduled Provider:Yelena MICHELLE MD Location:[facility] Appointment Type:FM Open Appointment Date:01/21/2022 11:00:00 AM Scheduled Provider: Location:[facility] Appointment Type: Medicare Wellness Subsequent Appointment Date:02/06/2022 11:15:00 AM Scheduled Provider:Jeffrey Chacon MD Location:[facility] Appointment Type:Pain Management - Follow Up (FT) [facility] Future App[facility]ments Appointment Date:01/17/2022 11:00:00 AM Scheduled Provider:Yelena MICHELLE MD Location:[facility] Appointment Type:FM Open Appointment Date:01/21/2022 11:00:00 AM Scheduled Provider: Location:[facility] Appointment Type: Medicare Wellness Subsequent Appointment Date:02/06/2022 11:15:00 AM Scheduled Provider:Jeffrey Chacon MD Location:[facility] Appointment Type:Pain Management - Follow Up (FT) Future Scheduled Tests Laboratory* CBC w/ Auto Diff 12/12/21 * Comprehensive Metabolic Panel 12/12/21 [facility] Primary Care Evaluation + Plan note Future Appointments Appointment Date:01/17/2022 11:00:00 AM Scheduled Provider:Yelena MICHELLE MD Location:[facility] Appointment Type:FM Open Appointment Date:01/21/2022 11:00:00 AM Scheduled Provider: Location:[facility] Appointment Type:FM Medicare Wellness Subsequent Appointment Date:02/06/2022 11:15:00 AM Scheduled Provider:Jeffrey Chacon MD Location:[facility] Appointment Type:Pain Management - Follow Up (FT) [facility] Future App[facility]ments Appointment Date:01/21/2022 11:00:00 AM Scheduled Provider: Location:[facility] Appointment Type: Medicare Wellness Subsequent Appointment Date:02/06/2022 11:15:00 AM Scheduled Provider:Jeffrey Chacon MD Location:[facility] Appointment Type:Pain Management - Follow Up (FT) Appointment Date:05/19/2022 10:20:00 AM Scheduled Provider:Yelena MICHELLE MD Location:[facility] Appointment Type:FM Open Future Scheduled Tests Laboratory* HgbA1c 22 * Vitamin D 25 Hydroxy 01/17/22 * Comprehensive Metabolic Panel 01/17/22 * Lipid Panel 01/17/22 * Vitamin B12 Level 01/17/22 [facility] Primary [facility] Evaluation + Plan note Future Appointments Appointment Date:02/06/2022 11:15:00 AM Scheduled Provider:Jeffrey Chacon MD Location:[facility] Appointment Type:Pain Management - Follow Up (FT) Appointment Date:05/19/2022 10:20:00 AM Scheduled Provider:Yelena MICHELLE MD Location:[facility] Appointment Type:FM Open Appointment Date:01/13/2023 11:00:00 AM Scheduled Provider: Location:[facility] Appointment Type:FM Medicare Wellness Subsequent Future Scheduled Tests Laboratory* HgbA1c 01/17/22 * Vitamin D 25 Hydroxy 01/17/22 * Comprehensive Metabolic Panel 01/17/22 * Lipid Panel 01/17/22 * Vitamin B12 Level 01/17/22 Radiology* MA Mamm Screen w/CAD if perf and 3D Azeem 01/21/22 [facility] Primary Care Evaluation + Plan note Future Appointments Appointment Date:02/18/2022 01:15:00 PM Scheduled Provider: [facility] [place] [facility] Type:PT Eval (FT) Appointment Date:03/19/2022 02:30:00 PM Scheduled Provider: Location:[facility] Appointment Type:Surgery FT Appointment Date:04/17/2022 10:15:00 AM Scheduled Provider:Jeffrey Chacon MD Location:[facility] Appointment Type:Pain Management - Follow Up (FT) Appointment Date:05/19/2022 10:20:00 AM Scheduled Provider:Yelena MICHELLE MD Location:[facility] Appointment Type:FM Open Appointment Date:01/13/2023 11:00:00 AM Scheduled Provider: Location:[facility] Appointment Type:FM Medicare Wellness Subsequent Future Scheduled Tests Laboratory* HgbA1c 624/22 * Vitamin D 25 Hydroxy 624/22 * Comprehensive Metabolic Panel 24/22 * Lipid Panel 24/22 * Vitamin B12 Level 01/17/22 [facility] Future Appointments Appointment Date:03/19/2022 02:30:00 PM Scheduled Provider: Location:[facility] Appointment Type:Surgery FT Appointment Date:04/17/2022 10:15:00 AM Scheduled Provider:Jeffrey Chacon MD Location:[facility] Appointment Type:Pain Management - Follow Up (FT) Appointment Date:05/19/2022 10:20:00 AM Scheduled Provider:Yelena MICHELLE MD Location:[facility] Appointment Type: Open Appointment Date:01/13/2023 11:00:00 AM Scheduled Provider: Location:[facility] Appointment Type: Medicare Wellness Subsequent Future Scheduled Tests Laboratory* HgbA1c 624/22 * Vitamin D 25 Hydroxy 24/22 * Comprehensive Metabolic Panel 24/22 * Lipid Panel 24/22 * Vitamin B12 Level 22 [facility] Future Appointments Appointment Date:03/20/2022 09:45:00 AM Scheduled Provider: [facility] [place] [facility] Type:PT 45 (FT) Appointment Date:03/21/2022 02:00:00 PM Scheduled Provider: [facility] Type:PT Re-Eval 45 (FT) Appointment Date:03/24/2022 10:15:00 AM Scheduled Provider: [facility] Type:PT 45 (FT) Appointment Date:03/27/2022 10:30:00 AM Scheduled Provider: [place] [place] Appointment Type:PT 45 (FT) Appointment Date:03/28/2022 10:15:00 AM Scheduled Provider: [place] [place] Appointment Type:PT 45 (FT) Appointment Date:04/01/2022 11:30:00 AM Scheduled Provider: [place] [place] Appointment Type:PT 45 (FT) Appointment Date:04/03/2022 09:45:00 AM Scheduled Provider: [place] [place] Appointment Type:PT 45 (FT) Appointment Date:04/07/2022 09:30:00 AM Scheduled Provider: [place] [place] Appointment Type:PT 45 (FT) Appointment Date:04/10/2022 09:45:00 AM Scheduled Provider: [place] [place] Appointment Type:PT 45 (FT) Appointment Date:04/11/2022 09:30:00 AM Scheduled Provider: [place] [place] Appointment Type:PT 45 (FT) Appointment Date:04/15/2022 11:45:00 AM Scheduled Provider: [place] [place] Appointment Type:PT Re-Eval 45 (FT) Appointment Date:04/17/2022 10:15:00 AM Scheduled Provider:Jeffrey Chacon MD Location:[facility] Appointment Type:Pain Management - Follow Up (FT) Appointment Date:05/19/2022 10:20:00 AM Scheduled Provider:Yelena MICHELLE MD Location:[facility] Appointment Type:FM Open Appointment Date:01/13/2023 11:00:00 AM Scheduled Provider: Location:[facility] Appointment Type:FM Medicare Wellness Subsequent Future Scheduled Tests Laboratory* HgbA1c 01/17/22 * Vitamin D 25 Hydroxy 01/17/22 * Comprehensive Metabolic Panel 01/17/22 * Lipid Panel 01/17/22 * Vitamin B12 Level 01/17/22 [facility] Future Appointments Appointment Date:04/17/2022 10:15:00 AM Scheduled Provider:Jeffrey Chacon MD [facility] Type:Pain Management - Follow Up (FT) Appointment Date:05/19/2022 10:20:00 AM Scheduled Provider:Yelena MICHELLE MD Location:[facility] Appointment Type:FM Open Appointment Date:01/13/2023 11:00:00 AM Scheduled Provider: Location:[facility] Appointment Type: Medicare Wellness Subsequent Future Scheduled Tests Laboratory* HgbA1c 01/17/22 * Vitamin D 25 Hydroxy 01/17/22 * Comprehensive Metabolic Panel 01/17/22 * Lipid Panel 01/17/22 * Vitamin B12 Level 01/17/22 [facility] Primary [facility] Evaluation + Plan note Future Appointments Appointment Date:04/17/2022 10:15:00 AM Scheduled Provider:Jeffrey Chacon MD Location:[facility] Appointment Type:Pain Management - Follow Up (FT) Appointment Date:05/19/2022 10:20:00 AM Scheduled Provider:Yelena MICHELLE MD Location:[facility] Appointment Type: Open Appointment Date:01/13/2023 11:00:00 AM Scheduled Provider: Location:[facility] Appointment Type:FM Medicare Wellness Subsequent Diagnostic Tests Pending * Urine Culture 03/26/22 Future Scheduled Tests Laboratory* HgbA1c 01/17/22 * Vitamin D 25 Hydroxy 01/17/22 * Comprehensive Metabolic Panel 01/17/22 * Lipid Panel 01/17/22 * Vitamin B12 Level 01/17/22 [facility] Future Appointments Appointment Date:05/19/2022 10:20:00 AM Scheduled Provider:Yelena MICHELLE MD Location:[facility] Appointment Type: Open Appointment Date:01/13/2023 11:00:00 AM Scheduled Provider: Location:[facility] Appointment Type: Medicare Wellness Subsequent Future Scheduled Tests Laboratory* HgbA1c 01/17/22 * Vitamin D 25 Hydroxy 01/17/22 * Comprehensive Metabolic Panel 01/17/22 * Lipid Panel 01/17/22 * Vitamin B12 Level 01/17/22 [facility] Future Appointments Appointment Date:09/18/2022 11:00:00 AM Scheduled Provider:Yelena MICHELLE MD Location:[facility] Appointment Type: Open Appointment Date:01/13/2023 11:00:00 AM Scheduled Provider: Location:[facility] Appointment Type:FM Medicare Wellness Subsequent Diagnostic Tests Pending * Urine Culture 05/19/22 Future Scheduled Tests Laboratory* HgbA1c 01/17/22 * Clostridium difficile by PCR 05/19/22 * Vitamin D 25 Hydroxy 01/17/22 * Comprehensive Metabolic Panel 01/17/22 * Lipid Panel 01/17/22 * Vitamin B12 Level 01/17/22 [facility] Future App[facility]ments Appointment Date:06/23/2022 09:00:00 AM Scheduled Provider:Tammy Cantu CNP Location:[facility] [place] [facility] Appointment Type:[facility] Follow Up Appointment Date:09/18/2022 11:00:00 AM Scheduled Provider:Yelena MICHELLE MD Location:[facility] Appointment Type: Open Appointment Date:01/13/2023 11:00:00 AM Scheduled Provider: Location:[facility] Appointment Type:FM Medicare Wellness Subsequent Future Scheduled Tests Laboratory* HgbA1c 01/17/22 * Clostridium difficile by PCR 05/19/22 * Vitamin D 25 Hydroxy 01/17/22 * Comprehensive Metabolic Panel 01/17/22 * Lipid Panel 01/17/22 * Vitamin B12 Level 01/17/22 [facility] Future Appointments Appointment Date:09/18/2022 11:00:00 AM Scheduled Provider:Yelena MICHELLE MD Location:[facility] Appointment Type: Open Appointment Date:09/24/2022 10:20:00 AM Scheduled Provider:Tammy Cantu CNP Location:[facility] [place] [facility] Appointment Type:[facility] Follow Up Appointment Date:01/13/2023 11:00:00 AM Scheduled Provider: Location:[facility] Appointment Type:FM Medicare Wellness Subsequent Future Scheduled Tests Laboratory* Fecal WBC Lactoferrin 06/23/22 * HgbA1c 01/17/22 * Giardia lamblia, Direct Detection EIA 06/23/22 * O & P Exam, Routine 06/23/22 * Clostridium Difficile PCR 06/23/22 * Clostridium difficile by PCR 05/19/22 * Enteric Panel by PCR 06/23/22 * Vitamin D 25 Hydroxy 01/17/22 * CBC w/ Auto Diff 06/23/22 * Comprehensive Metabolic Panel 06/23/22 * Comprehensive Metabolic Panel 01/17/22 * Lipid Panel 01/17/22 * Vitamin B12 Level 01/17/22 [facility] Evaluation + Plan note Future Appointments Appointment Date:09/24/2022 10:20:00 AM Scheduled Provider:Tammy Cantu CNP Location:[facility] [place] [facility] Appointment Type:[facility] Follow Up Appointment Date:10/21/2022 12:00:00 PM Scheduled Provider:Yelena MICHELLE MD Location:[facility] Appointment Type: Open Appointment Date:01/13/2023 11:00:00 AM Scheduled Provider: Location:[facility] Appointment Type: Medicare Wellness Subsequent Future Scheduled Tests Laboratory* Fecal WBC Lactoferrin 06/23/22 * HgbA1c 01/17/22 * HgbA1c 09/18/22 * Giardia lamblia, Direct Detection EIA 06/23/22 * O & P Exam, Routine 06/23/22 * Clostridium Difficile PCR 06/23/22 * Clostridium difficile by PCR 05/19/22 * Enteric Panel by PCR 06/23/22 * Vitamin D 25 Hydroxy 01/17/22 * Vitamin D 25 Hydroxy 09/18/22 * CBC w/ Auto Diff 06/23/22 * CBC w/ Auto Diff 09/18/22 * Comprehensive Metabolic Panel 06/23/22 * Comprehensive Metabolic Panel 01/17/22 * Comprehensive Metabolic Panel 09/18/22 * Lipid Panel 01/17/22 * Lipid Panel 09/18/22 * Thyroid Stimulating Hormone 09/18/22 * Vitamin B12 Level 01/17/22 * Vitamin B12 Level 09/18/22 Radiology* MRI Brain w/o Contrast 09/18/22 [facility] Primary Care Evaluation + Plan note Future Appointments Appointment Date:09/24/2022 10:20:00 AM Scheduled Provider:Tammy Cantu CNP Location:[facility] [place] [facility] Appointment Type:[facility] Follow Up Appointment Date:10/21/2022 12:00:00 PM Scheduled Provider:Yelena MICHELLE MD Location:[facility] Appointment Type: Open Appointment Date:01/13/2023 11:00:00 AM Scheduled Provider: Location:[facility] Appointment Type:FM Medicare Wellness Subsequent Diagnostic Tests Pending * Urine Culture 09/18/22 Future Scheduled Tests Laboratory* Fecal WBC Lactoferrin 06/23/22 * HgbA1c 01/17/22 * HgbA1c 09/18/22 * Giardia lamblia, Direct Detection EIA 06/23/22 * O & P Exam, Routine 06/23/22 * Clostridium Difficile PCR 06/23/22 * Clostridium difficile by PCR 05/19/22 * Enteric Panel by PCR 06/23/22 * Vitamin D 25 Hydroxy 01/17/22 * Vitamin D 25 Hydroxy 09/18/22 * CBC w/ Auto Diff 06/23/22 * CBC w/ Auto Diff 09/18/22 * Comprehensive Metabolic Panel 06/23/22 * Comprehensive Metabolic Panel 01/17/22 * Comprehensive Metabolic Panel 09/18/22 * Lipid Panel 01/17/22 * Lipid Panel 09/18/22 * Thyroid Stimulating Hormone 09/18/22 * Vitamin B12 Level 01/17/22 * Vitamin B12 Level 09/18/22 Radiology* MRI Brain w/o Contrast 09/18/22 [facility] App[facility]ments Appointment Date:09/26/2022 12:00:00 PM Scheduled [facility] () Appointment Date:10/21/2022 12:00:00 PM Scheduled Provider:Yelena MICHELLE MD Location:[facility] Appointment Type:FM Open Appointment Date:10/27/2022 02:00:00 PM Scheduled Provider:Chalo KOENIG MD Location:[facility] [place] [facility] Appointment Type:URO New Patient Appointment Date:12/25/2022 10:40:00 AM Scheduled Provider:Tammy Cantu CNP Location:[facility] [place] [facility] Appointment Type:BADH Follow Up Appointment Date:01/13/2023 11:00:00 AM Scheduled Provider: Location:[facility] Appointment Type:FM Medicare Wellness Subsequent Future Scheduled Tests Laboratory* Fecal WBC Lactoferrin 06/23/22 * HgbA1c 01/17/22 * HgbA1c 09/18/22 * Giardia lamblia, Direct Detection EIA 06/23/22 * O & P Exam, Routine 06/23/22 * Clostridium Difficile PCR 06/23/22 * Clostridium difficile by PCR 05/19/22 * Enteric Panel by PCR 06/23/22 * Vitamin D 25 Hydroxy 01/17/22 * Vitamin D 25 Hydroxy 09/18/22 * CBC w/ Auto Diff 09/24/22 * CBC w/ Auto Diff 06/23/22 * CBC w/ Auto Diff 09/18/22 * Comprehensive Metabolic Panel 09/24/22 * Comprehensive Metabolic Panel 06/23/22 * Comprehensive Metabolic Panel 01/17/22 * Comprehensive Metabolic Panel 09/18/22 * Lipid Panel 01/17/22 * Lipid Panel 09/18/22 * Thyroid Stimulating Hormone 09/18/22 * Vitamin B12 Level 01/17/22 * Vitamin B12 Level 09/18/22 Radiology* MRI Brain w/o Contrast 09/26/22 [facility] Evaluation + Plan note Future Appointments Appointment Date:10/27/2022 02:00:00 PM Scheduled Provider:Chalo KOENIG MD Location:[facility] Appointment Type:URO New Patient Appointment Date:12/25/2022 10:40:00 AM Scheduled Provider:Tammy Cantu CNP Location:[facility] [place] [facility] Appointment Type:BADH Follow Up Appointment Date:01/13/2023 11:00:00 AM Scheduled Provider: Location:[facility] Appointment Type: Medicare Wellness Subsequent Appointment Date:02/20/2023 12:00:00 PM Scheduled Provider:Yelena MICHELLE MD Location:[facility] Appointment Type: Open Future Scheduled Tests Laboratory* Fecal WBC Lactoferrin 06/23/22 * Giardia lamblia, Direct Detection EIA 06/23/22 * Immunofixation Serum 10/21/22 * O & P Exam, Routine 06/23/22 * Immunofixation, Urine 10/21/22 * Clostridium Difficile PCR 06/23/22 * Clostridium difficile by PCR 05/19/22 * Enteric Panel by PCR 06/23/22 * CBC w/ Auto Diff 09/24/22 * CBC w/ Auto Diff 06/23/22 * Comprehensive Metabolic Panel 09/24/22 * Comprehensive Metabolic Panel 06/23/22 * Comprehensive Metabolic Panel 10/21/22 [facility] Primary Care Evaluation + Plan note Future Appointments Appointment Date:12/25/2022 10:40:00 AM Scheduled Provider:Tammy Cantu CNP Location:[facility] [place] [facility] Appointment Type:BAD Follow Up Appointment Date:01/13/2023 11:00:00 AM Scheduled Provider: Location:[facility] Appointment Type:FM Medicare Wellness Subsequent Appointment Date:01/26/2023 10:15:00 AM Scheduled Provider:Chalo KOENIG MD Location:[facility] Appointment Type:URO Office Visit Appointment Date:02/20/2023 12:00:00 PM Scheduled Provider:Yelena MICHELLE MD Location:[facility] Appointment Type: Open Future Scheduled Tests Laboratory* Fecal WBC Lactoferrin 06/23/22 * Giardia lamblia, Direct Detection EIA 06/23/22 * Immunofixation Serum 10/21/22 * O & P Exam, Routine 06/23/22 * Immunofixation, Urine 10/21/22 * Clostridium Difficile PCR 06/23/22 * Clostridium difficile by PCR 05/19/22 * Enteric Panel by PCR 06/23/22 * CBC w/ Auto Diff 09/24/22 * CBC w/ Auto Diff 06/23/22 * Comprehensive Metabolic Panel 09/24/22 * Comprehensive Metabolic Panel 06/23/22 * Comprehensive Metabolic Panel 10/21/22 [facility] evaluation + Plan note Future Appointments Appointment Date:12/25/2022 10:40:00 AM Scheduled Provider:Tammy Cantu CNP Location:[facility] [place] [facility] Appointment Type:[facility] Follow Up Appointment Date:01/13/2023 11:00:00 AM Scheduled Provider: Location:[facility] Appointment Type: Medicare Wellness Subsequent Appointment Date:02/20/2023 12:00:00 PM Scheduled Provider:Yelena MICHELLE MD Location:[facility] Appointment Type:FM Open Appointment Date:04/03/2023 10:15:00 AM Scheduled Provider:Chalo KOENIG MD Location:[facility] Appointment Type:URO Office Visit Future Scheduled Tests Laboratory* Fecal WBC Lactoferrin 06/23/22 * Giardia lamblia, Direct Detection EIA 06/23/22 * Immunofixation Serum 10/21/22 * O & P Exam, Routine 06/23/22 * Immunofixation, Urine 10/21/22 * Clostridium Difficile PCR 06/23/22 * Clostridium difficile by PCR 05/19/22 * Enteric Panel by PCR 06/23/22 * CBC w/ Auto Diff 09/24/22 * CBC w/ Auto Diff 06/23/22 * Comprehensive Metabolic Panel 09/24/22 * Comprehensive Metabolic Panel 06/23/22 * Comprehensive Metabolic Panel 10/21/22 [facility] evaluation + Plan note Future Appointments Appointment Date:01/13/2023 11:00:00 AM Scheduled Provider: Location:[facility] [place] [facility] Appointment Type: Medicare Wellness Subsequent Appointment Date:02/20/2023 12:00:00 PM Scheduled Provider:Yelena MICHELLE MD Location:[facility] [place] [facility] Appointment Type: Open Appointment Date:03/31/2023 10:20:00 AM Scheduled Provider:Tammy Cantu CNP Location:[facility] [place] [facility] Appointment Type:BADH Follow Up Appointment Date:04/03/2023 10:15:00 AM Scheduled Provider:Chalo KOENIG MD Location:[facility] Appointment Type:URO Office Visit Future Scheduled Tests Laboratory* Fecal WBC Lactoferrin 06/23/22 * Giardia lamblia, Direct Detection EIA 06/23/22 * Immunofixation Serum 10/21/22 * O & P Exam, Routine 06/23/22 * Immunofixation, Urine 10/21/22 * Clostridium Difficile PCR 06/23/22 * Clostridium difficile by PCR 05/19/22 * Enteric Panel by PCR 06/23/22 * CBC w/ Auto Diff 09/24/22 * CBC w/ Auto Diff 06/23/22 * Comprehensive Metabolic Panel 09/24/22 * Comprehensive Metabolic Panel 06/23/22 * Comprehensive Metabolic Panel 10/21/22 [facility] Evaluation + Plan note Future Appointments Appointment Date:02/05/2023 11:30:00 AM Scheduled Provider: Location[facility] Appointment Type:MA Screen (FT) Appointment Date:02/20/2023 12:00:00 PM Scheduled Provider:Yelena MICHELLE MD Location:[facility] Appointment Type: Open Appointment Date:03/31/2023 10:20:00 AM Scheduled Provider:Tammy Cantu CNP Location:[facility] [place] [facility] Appointment Type:[facility] Follow Up Appointment Date:04/03/2023 10:15:00 AM Scheduled Provider:[facility] Office Visit Appointment Date:01/14/2024 11:00:00 AM Scheduled Provider: Location:[facility] Appointment Type: Medicare Wellness Subsequent Future Scheduled Tests Laboratory* Fecal WBC Lactoferrin 06/23/22 * Giardia lamblia, Direct Detection EIA 06/23/22 * Immunofixation Serum 10/21/22 * O & P Exam, Routine 06/23/22 * Immunofixation, Urine 10/21/22 * Clostridium Difficile PCR 06/23/22 * Clostridium difficile by PCR 05/19/22 * Enteric Panel by PCR 06/23/22 * CBC w/ Auto Diff 09/24/22 * CBC w/ Auto Diff 06/23/22 * Comprehensive Metabolic Panel 09/24/22 * Comprehensive Metabolic Panel 06/23/22 * Comprehensive Metabolic Panel 10/21/22 Radiology* MA Mamm Screen w/CAD if perf and 3D Azeem 02/05/23 [facility] Evaluation + Plan note Future Appointments Appointment Date:02/20/2023 12:00:00 PM Scheduled Provider:Yelena MICHELLE MD Location:[facility] Appointment Type: Open Appointment Date:03/31/2023 10:20:00 AM Scheduled Provider:Tammy Cantu CNP Location:[facility] [place] [facility] Appointment Type:[facility] Follow Up Appointment Date:04/03/2023 10:15:00 AM Scheduled Provider:Chalo [facility]ENIG MD [facility]O Office Visit Appointment Date:01/14/2024 11:00:00 AM Scheduled Provider: Location:[facility] Appointment Type: Medicare Wellness Subsequent Future Scheduled Tests Laboratory* Fecal WBC Lactoferrin 06/23/22 * Giardia lamblia, Direct Detection EIA 06/23/22 * Immunofixation Serum 10/21/22 * O & P Exam, Routine 06/23/22 * Immunofixation, Urine 10/21/22 * Clostridium Difficile PCR 06/23/22 * Clostridium difficile by PCR 05/19/22 * Enteric Panel by PCR 06/23/22 * CBC w/ Auto Diff 09/24/22 * CBC w/ Auto Diff 06/23/22 * Comprehensive Metabolic Panel 09/24/22 * Comprehensive Metabolic Panel 06/23/22 * Comprehensive Metabolic Panel 10/21/22 [facility] Appointment Date:02/19/2023 10:15:00 AM Scheduled Provider: Location[facility] Appointment Type:MA Diagnostic () Appointment Date:02/19/2023 10:30:00 AM Scheduled Provider: [facility] App[facility] Type:US Breast () Appointment Date:02/20/2023 12:00:00 PM Scheduled Provider:Yelena MICHELLE MD Location:[facility] Appointment Type: Open Appointment Date:03/18/2023 11:30:00 AM Scheduled Provider: Location:[facility] Appointment Type:Pharmacy Medication Education Appointment Date:03/31/2023 10:20:00 AM Scheduled Provider:Tammy Cantu CNP Location:[facility] [place] [facility] Appointment Type:BADH Follow Up Appointment Date:04/03/2023 10:15:00 AM Scheduled Provider:Chalo KOENIG MD Location:[facility] [place] [facility] [place] Appointment Type:URO Office Visit Appointment Date:01/14/2024 11:00:00 AM Scheduled Provider: Location:[facility] Appointment Type: Medicare Wellness Subsequent Diagnostic Tests Pending * Immunofixation Serum 02/18/23 * Immunofixation, Urine 02/18/23 Future Scheduled Tests Laboratory* Fecal WBC Lactoferrin 06/23/22 * Giardia lamblia, Direct Detection EIA 06/23/22 * O & P Exam, Routine 06/23/22 * Clostridium Difficile PCR 06/23/22 * Clostridium difficile by PCR 05/19/22 * Enteric Panel by PCR 06/23/22 * CBC w/ Auto Diff 09/24/22 * CBC w/ Auto Diff 06/23/22 * Comprehensive Metabolic Panel 09/24/22 * Comprehensive Metabolic Panel 06/23/22 Radiology* US Breast Unilateral Rt Complete 02/19/23 * MA Mamm Diag w/CAD if perf and 3D RT 02/19/23 [facility] Appointment Date:02/20/2023 12:00:00 PM Scheduled Provider:Yelena MICHELLE MD Location:[facility] Appointment Type:FM Open Appointment Date:03/18/2023 11:30:00 AM Scheduled Provider: Location:[facility] Appointment Type:Pharmacy Medication Education Appointment Date:03/31/2023 10:20:00 AM Scheduled Provider:Tammy Cantu CNP Location:[facility] [place] [facility] Appointment Type:BAD Follow Up Appointment Date:04/03/2023 10:15:00 AM Scheduled Provider:Chalo KOENIG MD [facility] Type:URO Office Visit Appointment Date:01/14/2024 11:00:00 AM Scheduled Provider: Location:[facility] Appointment Type: Medicare Wellness Subsequent Future Scheduled Tests Laboratory* Fecal WBC Lactoferrin 06/23/22 * Giardia lamblia, Direct Detection EIA 06/23/22 * O & P Exam, Routine 06/23/22 * Clostridium Difficile PCR 06/23/22 * Clostridium difficile by PCR 05/19/22 * Enteric Panel by PCR 06/23/22 * CBC w/ Auto Diff 09/24/22 * CBC w/ Auto Diff 06/23/22 * Comprehensive Metabolic Panel 09/24/22 * Comprehensive Metabolic Panel 06/23/22 [facility] Appointment Date:03/31/2023 10:20:00 AM Scheduled Provider:Tammy Cantu CNP Location:[facility] [place] [facility] Appointment Type:BAD Follow Up Appointment Date:04/03/2023 10:15:00 AM Scheduled Provider:Chalo KOENIG MD Location:[facility] [place] Appointment Type:URO Office Visit Appointment Date:06/01/2023 01:00:00 PM Scheduled Provider:Yelena MICHELLE MD Location:[facility] Appointment Type:FM Open Appointment Date:01/14/2024 11:00:00 AM Scheduled Provider: Location:[facility] Appointment Type: Medicare Wellness Subsequent Future Scheduled Tests Laboratory* Fecal WBC Lactoferrin 06/23/22 * Giardia lamblia, Direct Detection EIA 06/23/22 * O & P Exam, Routine 06/23/22 * Clostridium Difficile PCR 06/23/22 * Clostridium difficile by PCR 05/19/22 * Enteric Panel by PCR 06/23/22 * CBC w/ Auto Diff 09/24/22 * CBC w/ Auto Diff 06/23/22 * Comprehensive Metabolic Panel 09/24/22 * Comprehensive Metabolic Panel 06/23/22 [facility] Primary [facility] Evaluation + Plan note Future Appointments Appointment Date:03/05/2023 10:00:00 AM Scheduled Provider: Location[facility] Appointment Type:US Breast () Appointment Date:03/05/2023 11:00:00 AM Scheduled Provider: Location:.[facility] Appointment Type:MA Diagnostic () Appointment Date:03/13/2023 11:40:00 AM Scheduled Provider:Yelena Osorio MD Location:[facility] Appointment Type:GS Post Op 15 Appointment Date:03/17/2023 02:30:00 PM Scheduled Provider: [facility] App[facility] Type:ONC Office Visit 30 (FT) Appointment Date:03/31/2023 10:20:00 AM Scheduled Provider:Tammy Cantu CNP Location:[facility] [place] [facility] Appointment Type:BADH Follow Up Appointment Date:04/03/2023 10:15:00 AM Scheduled Provider:Chalo KOENIG MD Location:[facility] [place] Appointment Type:URO Office Visit Appointment Date:06/01/2023 01:00:00 PM Scheduled Provider:Yelena MICHELLE MD Location:[facility] Appointment Type:FM Open Appointment Date:01/14/2024 11:00:00 AM Scheduled Provider: Location:[facility] Appointment Type: Medicare Wellness Subsequent Diagnostic Tests Pending * Free K+L Lt Chains,Qn,S 03/03/23 * Beta 2 Microglobulin 03/03/23 * Protein Electrophoresis 03/03/23 Future Scheduled Tests Laboratory* Fecal WBC Lactoferrin 06/23/22 * Giardia lamblia, Direct Detection EIA 06/23/22 * O & P Exam, Routine 06/23/22 * Clostridium Difficile PCR 06/23/22 * Clostridium difficile by PCR 05/19/22 * Enteric Panel by PCR 06/23/22 * CBC w/ Auto Diff 09/24/22 * CBC w/ Auto Diff 06/23/22 * Comprehensive Metabolic Panel 09/24/22 * Comprehensive Metabolic Panel 06/23/22 Radiology* MA Mamm Diag w/CAD if performed RT 03/05/23 * US Breast biopsy Vac Asst, First Lesion 03/05/23 * XR Bone Survey Complete 03/04/23 [facility] App[facility]ments Appointment Date:03/13/2023 11:40:00 AM Scheduled Provider:Yelena Osorio MD Location:[facility] Appointment Type:GS Post Op 15 Appointment Date:03/17/2023 02:30:00 PM Scheduled Provider: [facility] Type:ONC Office Visit 30 (FT) Appointment Date:03/31/2023 10:20:00 AM Scheduled Provider:Tammy Cantu CNP Location:[facility] [place] [facility] Appointment Type:BADH Follow Up Appointment Date:04/03/2023 10:15:00 AM Scheduled Provider:Chalo KOENIG MD Location:[facility] [place] Appointment Type:URO Office Visit Appointment Date:06/01/2023 01:00:00 PM Scheduled Provider:Yelena MICHELLE MD Location:[facility] Appointment Type:FM Open Appointment Date:01/14/2024 11:00:00 AM Scheduled Provider: Location:[facility] Appointment Type: Medicare Wellness Subsequent Future Scheduled Tests Laboratory* Fecal WBC Lactoferrin 06/23/22 * Giardia lamblia, Direct Detection EIA 06/23/22 * O & P Exam, Routine 06/23/22 * Clostridium Difficile PCR 06/23/22 * Clostridium difficile by PCR 05/19/22 * Enteric Panel by PCR 06/23/22 * CBC w/ Auto Diff 09/24/22 * CBC w/ Auto Diff 06/23/22 * Comprehensive Metabolic Panel 09/24/22 * Comprehensive Metabolic Panel 06/23/22 Radiology* XR Bone Survey Complete 03/04/23 [facility] App[facility]ments Appointment Date:03/13/2023 11:40:00 AM Scheduled Provider:Yelena Osorio MD Location:[facility] Appointment Type:GS Post Op 15 Appointment Date:03/17/2023 02:30:00 PM Scheduled Provider: Location:.ONCOLOGY Appointment Type:ONC Office Visit 30 (FT) Appointment Date:03/31/2023 10:20:00 AM Scheduled Provider:Tammy Cantu CNP Location:[facility] [place] [facility] Appointment Type:BADH Follow Up Appointment Date:04/03/2023 10:15:00 AM Scheduled Provider:Chalo KOENIG MD Location:[facility] [place] [facility] [place] Appointment Type:URO Office Visit Appointment Date:06/01/2023 01:00:00 PM Scheduled Provider:Yelena MICHELLE MD Location:[facility] Appointment Type: Open Appointment Date:01/14/2024 11:00:00 AM Scheduled Provider: Location:[facility] Appointment Type: Medicare Wellness Subsequent Future Scheduled Tests Laboratory* Fecal WBC Lactoferrin 06/23/22 * Giardia lamblia, Direct Detection EIA 06/23/22 * O & P Exam, Routine 06/23/22 * Clostridium Difficile PCR 06/23/22 * Clostridium difficile by PCR 05/19/22 * Enteric Panel by PCR 06/23/22 * CBC w/ Auto Diff 09/24/22 * CBC w/ Auto Diff 06/23/22 * Comprehensive Metabolic Panel 09/24/22 * Comprehensive Metabolic Panel 06/23/22 [facility] App[facility]ments Appointment Date:03/17/2023 02:30:00 PM Scheduled Provider: [facility] App[facility] Type:ONC Office Visit 30 (FT) Appointment Date:03/31/2023 10:20:00 AM Scheduled Provider:Tammy Cantu CNP Location:[facility] [place] [facility] Appointment Type:BAD Follow Up Appointment Date:04/03/2023 10:15:00 AM Scheduled Provider:Chalo KOENIG MD Location:[facility] [place] [facility] [place] Appointment Type:URO Office Visit Appointment Date:04/10/2023 09:30:00 AM Scheduled Provider: Jeana:[facility] Appointment Type:Surgical PAT FT Appointment Date:04/15/2023 09:00:00 AM Scheduled Provider: Location:.[facility] Appointment Type:MA Needle Loc (FT) Appointment Date:04/15/2023 12:00:00 PM Scheduled Provider: Location:[facility] Appointment Type:Surgery FT Appointment Date:04/24/2023 11:40:00 AM Scheduled Provider:Yelena Osorio MD Location:[facility] Appointment Type:GS Post Op 15 Appointment Date:06/01/2023 01:00:00 PM Scheduled Provider:Yelena MICHELLE MD Location:[facility] Appointment Type:FM Open Appointment Date:01/14/2024 11:00:00 AM Scheduled Provider: Location:[facility] Appointment Type: Medicare Wellness Subsequent Future Scheduled Tests Laboratory* Fecal WBC Lactoferrin 06/23/22 * Giardia lamblia, Direct Detection EIA 06/23/22 * O & P Exam, Routine 06/23/22 * Clostridium Difficile PCR 06/23/22 * Clostridium difficile by PCR 05/19/22 * Enteric Panel by PCR 06/23/22 * CBC w/ Auto Diff 09/24/22 * CBC w/ Auto Diff 06/23/22 * Comprehensive Metabolic Panel 09/24/22 * Comprehensive Metabolic Panel 06/23/22 Radiology* MA Breast Needle Loc w/ Guidance, Right 04/15/23 * MA Mamm Diag w/CAD if perf and 3D RT 03/13/23 [facility] General [facility] [place] Evaluation + Plan note Future Appointments Appointment Date:04/14/2023 09:20:00 AM Scheduled Provider:Tammy Cantu CNP Location:[facility] [place] [facility] Appointment Type:BADH Follow Up Appointment Date:04/15/2023 09:00:00 AM Scheduled Provider: Location:.[facility] Appointment Type:MA Needle Loc (FT) Appointment Date:04/15/2023 12:00:00 PM Scheduled Provider: Location:[facility] Appointment Type:Surgery FT Appointment Date:04/21/2023 03:00:00 PM Scheduled Provider:CORAZON FRANCIS PA-C Location:[facility] [place] [facility] [place] Appointment Type:URO Office Visit Appointment Date:04/24/2023 11:40:00 AM Scheduled Provider:Yelena Osorio MD Location:[facility] Appointment Type:GS Post Op 15 Appointment Date:05/04/2023 02:30:00 PM Scheduled Provider: [facility] App[facility] Type:ONC Office Visit 30 (FT) Appointment Date:06/01/2023 01:00:00 PM Scheduled Provider:Yelena MICHELLE MD Location:[facility] Appointment Type:FM Open Appointment Date:01/14/2024 11:00:00 AM Scheduled Provider: Location:[facility] Appointment Type: Medicare Wellness Subsequent Future Scheduled Tests Laboratory* Fecal WBC Lactoferrin 06/23/22 * Giardia lamblia, Direct Detection EIA 06/23/22 * Immunofixation Serum 05/05/23 * Immunoglobs. A/E/G/M 05/05/23 * O & P Exam, Routine 06/23/22 * Clostridium Difficile PCR 06/23/22 * Clostridium difficile by PCR 05/19/22 * Free K+L Lt Chains,Qn,S 05/05/23 * Enteric Panel by PCR 06/23/22 * CBC w/ Auto Diff 09/24/22 * CBC w/ Auto Diff 05/05/23 * CBC w/ Auto Diff 06/23/22 * Comprehensive Metabolic Panel 09/24/22 * Comprehensive Metabolic Panel 05/05/23 * Comprehensive Metabolic Panel 06/23/22 * Protein Electrophoresis 05/05/23 Radiology* MA Mamm Diag w/CAD if perf and 3D RT 03/13/23 [facility] App[facility]ments Appointment Date:04/15/2023 09:00:00 AM Scheduled Provider: [facility] Appoint[facility] Type:MA Needle Loc (FT) Appointment Date:04/15/2023 12:00:00 PM Scheduled Provider: Location:[facility] Appointment Type:Surgery FT Appointment Date:04/21/2023 03:00:00 PM Scheduled Provider:CORAZON FRANCIS PA-C Location:[facility] [place] [facility] [place] Appointment Type:URO Office Visit Appointment Date:04/24/2023 11:40:00 AM Scheduled Provider:eYlena Osorio MD Location:[facility] Appointment Type:GS Post Op 15 Appointment Date:05/04/2023 02:30:00 PM Scheduled Provider: [facility] App[facility] Type:ONC Office Visit 30 (FT) Appointment Date:06/01/2023 01:00:00 PM Scheduled Provider:Yelena MICHELLE MD Location:[facility] Appointment Type:FM Open Appointment Date:06/22/2023 09:30:00 AM Scheduled Provider: [facility] Appointment Type:US Abdominal/Pelvis () Appointment Date:07/06/2023 09:20:00 AM Scheduled Provider:Tammy Cantu CNP Location:[facility] [place] [facility] Appointment Type:BADH Follow Up Appointment Date:01/14/2024 11:00:00 AM Scheduled Provider: Location:[facility] Appointment Type: Medicare Wellness Subsequent Future Scheduled Tests Laboratory* Fecal WBC Lactoferrin 06/23/22 * Giardia lamblia, Direct Detection EIA 06/23/22 * Immunofixation Serum 05/05/23 * Immunoglobs. A/E/G/M 05/05/23 * O & P Exam, Routine 06/23/22 * TIBC Calculated 04/14/23 * Clostridium Difficile PCR 06/23/22 * Acute Hepatitis A B C Panel 04/14/23 * Clostridium difficile by PCR 05/19/22 * Free K+L Lt Chains,Qn,S 05/05/23 * Enteric Panel by PCR 06/23/22 * CBC w/ Auto Diff 09/24/22 * CBC w/ Auto Diff 05/05/23 * CBC w/ Auto Diff 06/23/22 * Comprehensive Metabolic Panel 09/24/22 * Comprehensive Metabolic Panel 05/05/23 * Comprehensive Metabolic Panel 06/23/22 * Ferritin 04/14/23 * Folate Level 04/14/23 * Iron Level 04/14/23 * Iron Percent Saturation 04/14/23 * Protein Electrophoresis 05/05/23 * Transferrin 04/14/23 Radiology* US Liver 06/22/23 * MA Mamm Diag w/CAD if perf and 3D RT 03/13/23 [facility] Evaluation + Plan note Future Appointments Appointment Date:04/21/2023 03:00:00 PM Scheduled Provider:CORAZON FRANCIS PA-C Location:[facility] [place] [facility] [place] Appointment Type:URO Office Visit Appointment Date:04/24/2023 11:40:00 AM Scheduled Provider:Yelena Osorio MD Location:[facility] Appointment Type:GS Post Op 15 Appointment Date:05/04/2023 02:30:00 PM Scheduled Provider: Location:.ONCOLOGY Appointment Type:ONC Office Visit 30 (FT) Appointment Date:06/01/2023 01:00:00 PM Scheduled Provider:Yelena MICHELLE MD Location:[facility] Appointment Type:FM Open Appointment Date:06/22/2023 09:30:00 AM Scheduled Provider: [facility] Appointment Type:US Abdominal/Pelvis (FT) Appointment Date:07/06/2023 09:20:00 AM Scheduled Provider:Tammy Cantu CNP Location:[facility] [place] [facility] Appointment Type:BADH Follow Up Appointment Date:01/14/2024 11:00:00 AM Scheduled Provider: Location:[facility] Appointment Type: Medicare Wellness Subsequent Future Scheduled Tests Laboratory* Fecal WBC Lactoferrin 06/23/22 * Giardia lamblia, Direct Detection EIA 06/23/22 * Immunofixation Serum 05/05/23 * Immunoglobs. A/E/G/M 05/05/23 * O & P Exam, Routine 06/23/22 * TIBC Calculated 04/14/23 * Clostridium Difficile PCR 06/23/22 * Acute Hepatitis A B C Panel 04/14/23 * Clostridium difficile by PCR 05/19/22 * Free K+L Lt Chains,Qn,S 05/05/23 * Enteric Panel by PCR 06/23/22 * CBC w/ Auto Diff 09/24/22 * CBC w/ Auto Diff 05/05/23 * CBC w/ Auto Diff 06/23/22 * Comprehensive Metabolic Panel 09/24/22 * Comprehensive Metabolic Panel 05/05/23 * Comprehensive Metabolic Panel 06/23/22 * Ferritin 04/14/23 * Folate Level 04/14/23 * Iron Level 04/14/23 * Iron Percent Saturation 04/14/23 * Protein Electrophoresis 05/05/23 * Transferrin 04/14/23 Radiology* US Liver 06/22/23 * MA Mamm Diag w/CAD if perf and 3D RT 03/13/23 [facility] Evaluation + Plan note Future Appointments Appointment Date:05/04/2023 02:30:00 PM Scheduled Provider: Location:FT.ONCOLOGY Appointment Type:ONC Office Visit 30 (FT) Appointment Date:06/01/2023 01:00:00 PM Scheduled Provider:Yelena MICHELLE MD Location:[facility] Appointment Type:FM Open Appointment Date:06/22/2023 09:30:00 AM Scheduled Provider: [facility] Appointment Type:US Abdominal/Pelvis (FT) Appointment Date:07/06/2023 09:20:00 AM Scheduled Provider:Tammy Cantu CNP Location:[facility] [place] [facility] Appointment Type:BADH Follow Up Appointment Date:07/24/2023 11:00:00 AM Scheduled Provider:Yelena Osorio MD Location:[facility] Appointment Type:GS Established 15 Appointment Date:01/14/2024 11:00:00 AM Scheduled Provider: Location:[facility] Appointment Type:FM Medicare Wellness Subsequent Appointment Date:04/26/2024 10:00:00 AM Scheduled Provider:CORAZON FRANCIS PA-C Location:[facility] [place] Appointment Type:URO Office Visit Future Scheduled Tests Laboratory* Fecal WBC Lactoferrin 06/23/22 * Giardia lamblia, Direct Detection EIA 06/23/22 * Immunofixation Serum 05/05/23 * Immunoglobs. A/E/G/M 05/05/23 * O & P Exam, Routine 06/23/22 * TIBC Calculated 04/14/23 * Clostridium Difficile PCR 06/23/22 * Acute Hepatitis A B C Panel 04/14/23 * Clostridium difficile by PCR 05/19/22 * Free K+L Lt Chains,Qn,S 05/05/23 * Enteric Panel by PCR 06/23/22 * CBC w/ Auto Diff 09/24/22 * CBC w/ Auto Diff 05/05/23 * CBC w/ Auto Diff 06/23/22 * Comprehensive Metabolic Panel 09/24/22 * Comprehensive Metabolic Panel 05/05/23 * Comprehensive Metabolic Panel 06/23/22 * Ferritin 04/14/23 * Folate Level 04/14/23 * Iron Level 04/14/23 * Iron Percent Saturation 04/14/23 * Protein Electrophoresis 05/05/23 * Transferrin 04/14/23 Radiology* XR Abdomen 1 View 04/21/23 * US Liver 06/22/23 * MA Mamm Diag w/CAD if perf and 3D RT 03/13/23 [facility] General Surgery [place] Evaluation + Plan note Future Appointments Appointment Date:05/25/2023 03:00:00 PM Scheduled Provider: [facility] App[facility] Type:ONC Office Visit 30 (FT) Appointment Date:06/01/2023 01:00:00 PM Scheduled Provider:Yelena MICHELLE MD Location:[facility] Appointment Type:FM Open Appointment Date:06/22/2023 09:30:00 AM Scheduled Provider: [facility] Appointment Type:US Abdominal/Pelvis () Appointment Date:07/06/2023 09:20:00 AM Scheduled Provider:Tammy Cantu CNP Location:[facility] [place] [facility] Appointment Type:BADH Follow Up Appointment Date:07/24/2023 11:00:00 AM Scheduled Provider:Yleena Osorio MD Location:[facility] Appointment Type:GS Established 15 Appointment Date:01/14/2024 11:00:00 AM Scheduled Provider: Location:[facility] Appointment Type:FM Medicare Wellness Subsequent Appointment Date:04/26/2024 10:00:00 AM Scheduled Provider:CORAZON FRANCIS PA-C Location:[facility] [place] [facility] [place] Appointment Type:URO Office Visit Future Scheduled Tests Laboratory* Fecal WBC Lactoferrin 06/23/22 * Giardia lamblia, Direct Detection EIA 06/23/22 * O & P Exam, Routine 06/23/22 * TIBC Calculated 04/14/23 * Clostridium Difficile PCR 06/23/22 * Acute Hepatitis A B C Panel 04/14/23 * Enteric Panel by PCR 06/23/22 * CBC w/ Auto Diff 09/24/22 * CBC w/ Auto Diff 06/23/22 * Comprehensive Metabolic Panel 09/24/22 * Comprehensive Metabolic Panel 06/23/22 * Ferritin 04/14/23 * Folate Level 04/14/23 * Iron Level 04/14/23 * Iron Percent Saturation 04/14/23 * Transferrin 04/14/23 Radiology* XR Abdomen 1 View 04/21/23 * US Liver 06/22/23 * MA Mamm Diag w/CAD if perf and 3D RT 03/13/23 [facility] Appointment Date:06/01/2023 01:00:00 PM Scheduled Provider:Yelena MICHELLE MD Location:[facility] Appointment Type:FM Open Appointment Date:06/22/2023 09:30:00 AM Scheduled Provider: [facility] Appointment Type:US Abdominal/Pelvis (FT) Appointment Date:07/06/2023 09:20:00 AM Scheduled Provider:Tammy Cantu CNP Location:[facility] [place] [facility] Appointment Type:BADH Follow Up Appointment Date:07/24/2023 11:00:00 AM Scheduled Provider:Yelena Osorio MD Location:[facility] Appointment Type:GS Established 15 Appointment Date:08/03/2023 09:30:00 AM Scheduled Provider: Location:.ONCOLOGY Appointment Type:ONC Office Visit 30 () Appointment Date:01/14/2024 11:00:00 AM Scheduled Provider: Location:[facility] Appointment Type:FM Medicare Wellness Subsequent Appointment Date:04/26/2024 10:00:00 AM Scheduled Provider:CORAZON FRANCIS PA-C Location:[facility] [place] [facility] [place] Appointment Type:URO Office Visit Future Scheduled Tests Laboratory* Fecal WBC Lactoferrin 06/23/22 * Giardia lamblia, Direct Detection EIA 06/23/22 * O & P Exam, Routine 06/23/22 * TIBC Calculated 04/14/23 * Clostridium Difficile PCR 06/23/22 * Acute Hepatitis A B C Panel 04/14/23 * Enteric Panel by PCR 06/23/22 * CBC w/ Auto Diff 09/24/22 * CBC w/ Auto Diff 06/23/22 * Comprehensive Metabolic Panel 09/24/22 * Comprehensive Metabolic Panel 06/23/22 * Ferritin 04/14/23 * Folate Level 04/14/23 * Hepatic Function Panel 08/11/23 * Iron Level 04/14/23 * Iron Percent Saturation 04/14/23 * Transferrin 04/14/23 Radiology* XR Abdomen 1 View 04/21/23 * US Liver 06/22/23 * MA Mamm Diag w/CAD if perf and 3D RT 03/13/23 [facility] App[facility]ments Appointment Date:06/22/2023 09:30:00 AM Scheduled Provider: [facility] Appointment Type:US Abdominal/Pelvis (FT) Appointment Date:07/06/2023 09:20:00 AM Scheduled Provider:Tammy Cantu CNP Location:[facility] [place] [facility] Appointment Type:BADH Follow Up Appointment Date:07/24/2023 11:00:00 AM Scheduled Provider:Yelena Osorio MD Location:[facility] Appointment Type:GS Established 15 Appointment Date:08/03/2023 09:30:00 AM Scheduled Provider: [facility] Type:ONC Office Visit 30 (FT) Appointment Date:09/30/2023 11:00:00 AM Scheduled Provider:Yelena MICHELLE MD Location:[facility] Appointment Type:FM Open Appointment Date:01/14/2024 11:00:00 AM Scheduled Provider: Location:[facility] Appointment Type:FM Medicare Wellness Subsequent Appointment Date:04/26/2024 10:00:00 AM Scheduled Provider:CORAZON FRANCIS PA-C Location:[facility] [place] [facility] [place] Appointment Type:URO Office Visit Future Scheduled Tests Laboratory* Fecal WBC Lactoferrin 06/23/22 * HgbA1c 06/01/23 * Giardia lamblia, Direct Detection EIA 06/23/22 * O & P Exam, Routine 06/23/22 * TIBC Calculated 04/14/23 * Clostridium Difficile PCR 06/23/22 * Acute Hepatitis A B C Panel 04/14/23 * Enteric Panel by PCR 06/23/22 * Vitamin D 25 Hydroxy 06/01/23 * CBC w/ Auto Diff 09/24/22 * CBC w/ Auto Diff 06/23/22 * CBC w/ Auto Diff 06/01/23 * Comprehensive Metabolic Panel 09/24/22 * Comprehensive Metabolic Panel 06/23/22 * Comprehensive Metabolic Panel 06/01/23 * Ferritin 04/14/23 * Folate Level 04/14/23 * Hepatic Function Panel 08/11/23 * Iron Level 04/14/23 * Iron Percent Saturation 04/14/23 * Lipid Panel 06/01/23 * Transferrin 04/14/23 Radiology* XR Abdomen 1 View 04/21/23 * US Liver 06/22/23 * MA Mamm Diag w/CAD if perf and 3D RT 03/13/23 [facility] Primary Care Evaluation + Plan note Future Appointments Appointment Date:07/06/2023 09:20:00 AM Scheduled Provider:Tammy Cantu CNP Location:[facility] [place] [facility] Appointment Type:BADH Follow Up Appointment Date:07/24/2023 11:00:00 AM Scheduled Provider:Yelena Osorio MD Location:[facility] Appointment Type:GS Established 15 Appointment Date:08/03/2023 09:30:00 AM Scheduled Provider: [facility] Type:ONC Office Visit 30 (FT) Appointment Date:09/30/2023 11:00:00 AM Scheduled Provider:Yelena MICHELLE MD Location:[facility] Appointment Type:FM Open Appointment Date:01/14/2024 11:00:00 AM Scheduled Provider: Location:[facility] Appointment Type:FM Medicare Wellness Subsequent Appointment Date:04/26/2024 10:00:00 AM Scheduled Provider:CORAZON FRANCIS PA-C Location:[facility] [place] [facility] Appointment Type:URO Office Visit Future Scheduled Tests Laboratory* Fecal WBC Lactoferrin 06/23/22 * HgbA1c 06/01/23 * Giardia lamblia, Direct Detection EIA 06/23/22 * O & P Exam, Routine 06/23/22 * TIBC Calculated 04/14/23 * Clostridium Difficile PCR 06/23/22 * Acute Hepatitis A B C Panel 04/14/23 * Enteric Panel by PCR 06/23/22 * Vitamin D 25 Hydroxy 06/01/23 * CBC w/ Auto Diff 09/24/22 * CBC w/ Auto Diff 06/23/22 * CBC w/ Auto Diff 06/01/23 * Comprehensive Metabolic Panel 09/24/22 * Comprehensive Metabolic Panel 06/23/22 * Comprehensive Metabolic Panel 06/01/23 * Ferritin 04/14/23 * Folate Level 04/14/23 * Hepatic Function Panel 08/11/23 * Iron Level 04/14/23 * Iron Percent Saturation 04/14/23 * Lipid Panel 06/01/23 * Transferrin 04/14/23 Radiology* XR Abdomen 1 View 04/21/23 * MA Mamm Diag w/CAD if perf and 3D RT [facility] Appointment Date:07/15/2023 01:40:00 PM Scheduled Provider:Tammy Cantu CNP Location:[facility] [place] [facility] Appointment Type:BADH Follow Up Appointment Date:07/24/2023 11:00:00 AM Scheduled Provider:Yelena Osorio MD Location:[facility] Appointment Type: Established Appointment Date:08/03/2023 09:30:00 AM Scheduled Provider: Location:.ONCOLOGY Appointment Type:ONC Office Visit 30 (FT) Appointment Date:09/30/2023 11:00:00 AM Scheduled Provider:Yelena MICHELLE MD Location:[facility] Appointment Type:FM Open Appointment Date:01/14/2024 11:00:00 AM Scheduled Provider: Location:[facility] Appointment Type:FM Medicare Wellness Subsequent Appointment Date:04/26/2024 10:00:00 AM Scheduled Provider:CORAZON FRANCIS PA-C Location:[facility] Appointment Type:URO Office Visit Diagnostic Tests Pending * Acute Hepatitis A B C Panel 07/14/23 Future Scheduled Tests Laboratory* HgbA1c 06/01/23 * Vitamin D 25 Hydroxy 06/01/23 * CBC w/ Auto Diff 06/01/23 * Comprehensive Metabolic Panel 06/01/23 * Hepatic Function Panel 08/11/23 * Lipid Panel 06/01/23 Radiology* XR Abdomen 1 View 04/21/23 * MA Mamm Diag w/CAD if perf and 3D RT 03/13/23 [facility] App[facility]ments Appointment Date:07/24/2023 11:00:00 AM Scheduled Provider:Yelena Osorio MD Location:[facility] Appointment Type: Established 15 Appointment Date:07/29/2023 01:00:00 PM Scheduled Provider: [facility] [place] [facility] Type:PT Pelvic Floor/UI Eval (FT) Appointment Date:08/03/2023 09:30:00 AM Scheduled Provider: Location:.ONCOLOGY Appointment Type:ONC Office Visit 30 (FT) Appointment Date:09/15/2023 01:40:00 PM Scheduled Provider:Tammy Cantu CNP Location:[facility] [place] [facility] Appointment Type:BAD Follow Up Appointment Date:09/30/2023 11:00:00 AM Scheduled Provider:Yelena MICHELLE MD Location:[facility] Appointment Type:FM Open Appointment Date:01/14/2024 11:00:00 AM Scheduled Provider: Location:[facility] Appointment Type: Medicare Wellness Subsequent Appointment Date:04/26/2024 10:00:00 AM Scheduled Provider:CORAZON FRANCIS PA-C [facility]O Office Visit Future Scheduled Tests Laboratory* HgbA1c 06/01/23 * Vitamin D 25 Hydroxy 06/01/23 * CBC w/ Auto Diff 06/01/23 * Comprehensive Metabolic Panel 06/01/23 * Hepatic Function Panel 07/15/23 * Hepatic Function Panel 08/11/23 * Lipid Panel 06/01/23 Radiology* XR Abdomen 1 View 04/21/23 * MA Mamm Diag w/CAD if perf and 3D RT 03/13/23 [facility] Primary Care Evaluation + Plan note Future Appointments Appointment Date:08/03/2023 09:30:00 AM Scheduled Provider: [facility] Type:ONC Office Visit 30 (FT) Appointment Date:08/05/2023 01:00:00 PM Scheduled Provider: [facility] [place] App[facility] Type:PT Bassemphin 45 (FT) Appointment Date:09/15/2023 01:40:00 PM Scheduled Provider:Tammy Cantu CNP Location:[facility] [place] [facility] Appointment Type:[facility] Follow Up Appointment Date:09/30/2023 11:00:00 AM Scheduled Provider:Yelena MICHELLE MD Location:[facility] Appointment Type: Open Appointment Date:10/09/2023 11:00:00 AM Scheduled Provider:Yelena Osorio MD Location:[facility] [place] Appointment Type: Established 15 Appointment Date:01/14/2024 11:00:00 AM Scheduled Provider: Location:[facility] Appointment Type: Medicare Wellness Subsequent Appointment Date:04/26/2024 10:00:00 AM Scheduled Provider:CORAZON FRANCIS PA-C [facility] Type:URO Office Visit Future Scheduled Tests Laboratory* HgbA1c 06/01/23 * Vitamin D 25 Hydroxy 06/01/23 * CBC w/ Auto Diff 06/01/23 * Comprehensive Metabolic Panel 06/01/23 * Hepatic Function Panel 07/15/23 * Lipid Panel 06/01/23 Radiology* XR Abdomen 1 View 04/21/23 * MA Mamm Diag w/CAD if perf and 3D RT 03/13/23 [facility] App[facility]ments Appointment Date:08/05/2023 01:00:00 PM Scheduled Provider: Location:.[place] Appointment Type:PT [place] 45 (FT) Appointment Date:08/14/2023 09:45:00 AM Scheduled Provider: Location:.[place] Appointment Type:PT 60 (FT) Appointment Date:08/17/2023 09:15:00 AM Scheduled Provider: Location:.[place] Appointment Type:PT 60 (FT) Appointment Date:08/19/2023 09:45:00 AM Scheduled Provider: Location:.[place] Appointment Type:PT 60 (FT) Appointment Date:08/26/2023 09:30:00 AM Scheduled Provider: Location:.[place] Appointment Type:PT 60 (FT) Appointment Date:08/28/2023 09:30:00 AM Scheduled Provider: Location:.[place] Appointment Type:PT Re-Eval 60 (FT) Appointment Date:09/04/2023 09:30:00 AM Scheduled Provider: Location:.[place] Appointment Type:PT 60 (FT) Appointment Date:09/09/2023 09:15:00 AM Scheduled Provider: Location:.[place] Appointment Type:PT 60 (FT) Appointment Date:09/15/2023 01:40:00 PM Scheduled Provider:Tammy Cantu CNP Location:[facility] [place] [facility] Appointment Type:BADH Follow Up Appointment Date:09/16/2023 09:15:00 AM Scheduled Provider: Location:.[place] Appointment Type:PT 60 (FT) Appointment Date:09/23/2023 09:15:00 AM Scheduled Provider: Location:.[place] Appointment Type:PT Re-Eval 60 (FT) Appointment Date:09/30/2023 11:00:00 AM Scheduled Provider:Yelena MICHELLE MD Location:[facility] Appointment Type:FM Open Appointment Date:10/09/2023 11:00:00 AM Scheduled Provider:Yelena Osorio MD Location:[facility] Appointment Type:GS Established 15 Appointment Date:01/14/2024 11:00:00 AM Scheduled Provider: Location:[facility] Appointment Type:FM Medicare Wellness Subsequent Appointment Date:02/29/2024 10:00:00 AM Scheduled Provider: [facility] Type:ONC Office Visit 30 (FT) Appointment Date:04/26/2024 10:00:00 AM Scheduled Provider:CORAZON FRANCIS PA-C Location:[facility] [place] [facility] Appointment Type:URO Office Visit Future Scheduled Tests Laboratory* HgbA1c 06/01/23 * YAJAIRA and PE, Serum 02/16/24 * Immunoglobs. A/E/G/M 02/16/24 * Free K+L Lt Chains,Qn,S 02/16/24 * Vitamin D 25 Hydroxy 06/01/23 * CBC w/ Auto Diff 02/16/24 * CBC w/ Auto Diff 06/01/23 * Comprehensive Metabolic Panel 02/16/24 * Comprehensive Metabolic Panel 06/01/23 * Hepatic Function Panel 07/15/23 * Lipid Panel 06/01/23 Radiology* XR Abdomen 1 View 04/21/23 * MA Mamm Diag w/CAD if perf and 3D RT 03/13/23 * MA Mamm Diag w/CAD if perf and 3D Azeem 02/16/24 [facility] App[facility]ments Appointment Date:08/26/2023 09:30:00 AM Scheduled Provider: [facility] Type:PT 60 (FT) Appointment Date:08/28/2023 09:30:00 AM Scheduled Provider: [facility] App[facility] Type:PT Re-Eval 60 (FT) Appointment Date:09/04/2023 09:30:00 AM Scheduled Provider: [facility] Type:PT 60 (FT) Appointment Date:09/09/2023 09:30:00 AM Scheduled Provider: [facility] Type:PT 60 (FT) Appointment Date:09/15/2023 01:40:00 PM Scheduled Provider:Tammy Cantu CNP Location:[facility] [place] [facility] Appointment Type:BADH Follow Up Appointment Date:09/16/2023 10:30:00 AM Scheduled Provider: [facility] Type:PT 60 (FT) Appointment Date:09/23/2023 10:30:00 AM Scheduled Provider: [facility] App[facility] Type:PT Re-Eval 60 (FT) Appointment Date:09/30/2023 11:00:00 AM Scheduled Provider:Yelena MICHELLE MD Location:[facility] Appointment Type:FM Open Appointment Date:10/09/2023 11:00:00 AM Scheduled Provider:Yelena Osorio MD Location:[facility] Appointment Type:GS Established 15 Appointment Date:01/14/2024 11:00:00 AM Scheduled Provider: Location:[facility] Appointment Type:FM Medicare Wellness Subsequent Appointment Date:02/29/2024 10:00:00 AM Scheduled Provider: [facility] Type:ONC Office Visit 30 (FT) Appointment Date:04/26/2024 10:00:00 AM Scheduled Provider:CORAZON FRANCIS PA-C Location:[facility] [place] [facility] Appointment Type:URO Office Visit Future Scheduled Tests Laboratory* HgbA1c 06/01/23 * YAJAIRA and PE, Serum 02/16/24 * Immunoglobs. A/E/G/M 02/16/24 * Free K+L Lt Chains,Qn,S 02/16/24 * Vitamin D 25 Hydroxy 06/01/23 * CBC w/ Auto Diff 02/16/24 * CBC w/ Auto Diff 06/01/23 * Comprehensive Metabolic Panel 02/16/24 * Comprehensive Metabolic Panel 06/01/23 * Hepatic Function Panel 07/15/23 * Lipid Panel 06/01/23 Radiology* XR Abdomen 1 View 04/21/23 * MA Mamm Diag w/CAD if perf and 3D RT 03/13/23 * MA Mamm Diag w/CAD if perf and 3D Azeem 02/16/24 [facility] Primary Care Evaluation + Plan note Future Appointments Appointment Date:09/16/2023 10:30:00 AM Scheduled Provider: Location:.[place] Appointment Type:PT 60 (FT) Appointment Date:09/23/2023 10:30:00 AM Scheduled Provider: [facility] Type:PT Re-Eval 60 (FT) Appointment Date:09/30/2023 11:00:00 AM Scheduled Provider:Yelena MICHELLE MD Location:[facility] Appointment Type:FM Open Appointment Date:10/09/2023 11:00:00 AM Scheduled Provider:Yelena Osorio MD Location:[facility] Appointment Type:GS Established 15 Appointment Date:10/22/2023 10:00:00 AM Scheduled Provider: Location:[facility] Appointment Type:Chronic Care Dietary Appointment Date:12/14/2023 01:40:00 PM Scheduled Provider:Tammy Cantu CNP Location:[facility] [place] [facility] Appointment Type:BADH Follow Up Appointment Date:01/14/2024 11:00:00 AM Scheduled Provider: Location:[facility] Appointment Type:FM Medicare Wellness Subsequent Appointment Date:02/29/2024 10:00:00 AM Scheduled Provider:Regina Nick MD [facility] Type:ONC Office Visit 30 () Appointment Date:04/26/2024 10:00:00 AM Scheduled Provider:CORAZON FRANCIS PA-C Location:[facility] [place] [facility] Appointment Type:URO Office Visit Future Scheduled Tests Laboratory* Fecal WBC Lactoferrin 09/15/23 * HgbA1c 06/01/23 * Giardia lamblia, Direct Detection EIA 09/15/23 * YAJAIRA and PE, Serum 02/16/24 * Immunoglobs. A/E/G/M 02/16/24 * O & P Exam, Routine 09/15/23 * Clostridium Difficile PCR 09/15/23 * Free K+L Lt Chains,Qn,S 02/16/24 * Enteric Panel by PCR 09/15/23 * Vitamin D 25 Hydroxy 06/01/23 * CBC w/ Auto Diff 02/16/24 * CBC w/ Auto Diff 06/01/23 * Comprehensive Metabolic Panel 02/16/24 * Comprehensive Metabolic Panel 06/01/23 * Hepatic Function Panel 07/15/23 * Hepatic Function Panel 09/15/23 * Lipid Panel 06/01/23 Radiology* XR Abdomen 1 View 04/21/23 * MA Mamm Diag w/CAD if perf and 3D RT 03/13/23 * MA Mamm Diag w/CAD if perf and 3D Azeem 02/16/24 [facility] Evaluation + Plan note Future Appointments Appointment Date:09/18/2023 02:30:00 PM Scheduled Provider:Trever CHERY, Jan Haas [facility] [place] Appoint[facility] Type:Cardiology New Patient (FT) Appointment Date:09/23/2023 10:30:00 AM Scheduled Provider: [facility] [place] App[facility] Type:PT Re-Eval 60 () Appointment Date:09/30/2023 11:00:00 AM Scheduled Provider:Yelena MICHELLE MD Location:[facility] Appointment Type:FM Open Appointment Date:10/09/2023 11:00:00 AM Scheduled Provider:Yelena Osorio MD Location:[facility] Appointment Type:GS Established 15 Appointment Date:10/22/2023 10:00:00 AM Scheduled Provider: Location:[facility] Appointment Type:Chronic Care Dietary Appointment Date:12/14/2023 01:40:00 PM Scheduled Provider:Tammy Cantu CNP Location:[facility] [place] [facility] Appointment Type:BADH Follow Up Appointment Date:01/14/2024 11:00:00 AM Scheduled Provider: Location:[facility] Appointment Type: Medicare Wellness Subsequent Appointment Date:02/29/2024 10:00:00 AM Scheduled Provider:Regina Nick MD [facility] Type:ONC Office Visit 30 (FT) Appointment Date:04/26/2024 10:00:00 AM Scheduled Provider:CORAZON FRANCIS PA-C Location:[facility] [place] Appointment Type:URO Office Visit Future Scheduled Tests Laboratory* Fecal WBC Lactoferrin 09/15/23 * HgbA1c 06/01/23 * Giardia lamblia, Direct Detection EIA 09/15/23 * YAJAIRA and PE, Serum 02/16/24 * Immunoglobs. A/E/G/M 02/16/24 * O & P Exam, Routine 09/15/23 * Clostridium Difficile PCR 09/15/23 * Free K+L Lt Chains,Qn,S 02/16/24 * Enteric Panel by PCR 09/15/23 * Vitamin D 25 Hydroxy 06/01/23 * CBC w/ Auto Diff 02/16/24 * CBC w/ Auto Diff 06/01/23 * Comprehensive Metabolic Panel 02/16/24 * Comprehensive Metabolic Panel 06/01/23 * Hepatic Function Panel 07/15/23 * Hepatic Function Panel 09/15/23 * Lipid Panel 06/01/23 * Thyroid Stimulating Hormone 09/17/23 * Free T4 09/17/23 Radiology* XR Abdomen 1 View 04/21/23 * MA Mamm Diag w/CAD if perf and 3D RT 03/13/23 * MA Mamm Diag w/CAD if perf and 3D Azeem 02/16/24 [facility] Primary Care Evaluation + Plan note Future Appointments Appointment Date:09/23/2023 10:30:00 AM Scheduled Provider: [facility] Type:PT Re-Eval 60 () Appointment Date:09/30/2023 11:00:00 AM Scheduled Provider:Yelena MICHELLE MD Location:[facility] Appointment Type:FM Open Appointment Date:10/09/2023 11:00:00 AM Scheduled Provider:Yelena Osorio MD Location:[facility] Appointment Type: Established 15 Appointment Date:10/16/2023 01:30:00 PM Scheduled Provider:Jan Perera MD [facility] [place] [facility]oint[facility] Type:Cardiology New Patient (FT) Appointment Date:10/22/2023 10:00:00 AM Scheduled Provider: Location:[facility] Appointment Type:Chronic Care Dietary Appointment Date:12/14/2023 01:40:00 PM Scheduled Provider:Tammy Cantu CNP Location:[facility] [place] [facility] Appointment Type:BADH Follow Up Appointment Date:01/14/2024 11:00:00 AM Scheduled Provider: Location:[facility] Appointment Type:FM Medicare Wellness Subsequent Appointment Date:02/29/2024 10:00:00 AM Scheduled Provider:Regina Nick MD [facility] Type:ONC Office Visit 30 (FT) Appointment Date:04/26/2024 10:00:00 AM Scheduled Provider:CORAZON FRANCIS PA-C Location:[facility] Appointment Type:URO Office Visit Future Scheduled Tests Laboratory* Fecal WBC Lactoferrin 09/15/23 * HgbA1c 06/01/23 * Giardia lamblia, Direct Detection EIA 09/15/23 * YAJAIRA and PE, Serum 02/16/24 * Immunoglobs. A/E/G/M 02/16/24 * O & P Exam, Routine 09/15/23 * Clostridium Difficile PCR 09/15/23 * Free K+L Lt Chains,Qn,S 02/16/24 * Enteric Panel by PCR 09/15/23 * Vitamin D 25 Hydroxy 06/01/23 * CBC w/ Auto Diff 02/16/24 * CBC w/ Auto Diff 06/01/23 * Comprehensive Metabolic Panel 02/16/24 * Comprehensive Metabolic Panel 06/01/23 * Hepatic Function Panel 07/15/23 * Hepatic Function Panel 09/15/23 * Lipid Panel 06/01/23 * Thyroid Stimulating Hormone 09/17/23 * Free T4 09/17/23 Radiology* XR Abdomen 1 View 04/21/23 * MA Mamm Diag w/CAD if perf and 3D RT 03/13/23 * MA Mamm Diag w/CAD if perf and 3D Azeem 02/16/24 [facility] Primary Care Evaluation + Plan note Future Appointments Appointment Date:10/12/2023 03:40:00 PM Scheduled Provider:Yelena MICHELLE MD Location:[facility] Appointment Type: Hospital Follow Up w/TCM Appointment Date:10/14/2023 09:15:00 AM Scheduled Provider: [facility] Type:PT Re-Eval 45 (FT) Appointment Date:10/16/2023 01:30:00 PM Scheduled Provider:Jan Perera MD [facility] [place] [facility] Type:Cardiology New Patient (FT) Appointment Date:10/22/2023 10:00:00 AM Scheduled Provider: Location:[facility] Appointment Type:Chronic Care Dietary Appointment Date:11/04/2023 09:15:00 AM Scheduled Provider: [facility] Type:PT 45 (FT) Appointment Date:11/11/2023 09:30:00 AM Scheduled Provider: [facility] [place] App[facility] Type:PT Re-Eval 60 (FT) Appointment Date:11/18/2023 09:30:00 AM Scheduled Provider: Location:.[place] Appointment Type:PT 60 (FT) Appointment Date:11/25/2023 09:30:00 AM Scheduled Provider: [facility] Type:PT 60 (FT) Appointment Date:12/02/2023 09:30:00 AM Scheduled Provider: Location:[facility] Appointment Type:PT 60 (FT) Appointment Date:12/09/2023 09:30:00 AM Scheduled Provider: [facility] [place] [facility] Type:PT Re-Eval 60 (FT) Appointment Date:12/14/2023 01:40:00 PM Scheduled Provider:Tammy Cantu CNP Location:[facility] [place] [facility] Appointment Type:BADH Follow Up Appointment Date:12/16/2023 11:30:00 AM Scheduled Provider: [facility] Type:PT 60 (FT) Appointment Date:12/23/2023 11:30:00 AM Scheduled Provider: [facility] App[facility] Type:PT Re-Eval 60 (FT) Appointment Date:01/08/2024 10:00:00 AM Scheduled Provider:Yelena Osorio MD Location:[facility] Appointment Type:GS Established 15 Appointment Date:01/14/2024 11:00:00 AM Scheduled Provider: Location:[facility] Appointment Type:FM Medicare Wellness Subsequent Appointment Date:02/29/2024 10:00:00 AM Scheduled Provider:Regina Nick MD [facility] Type:ONC Office Visit 30 (FT) Appointment Date:04/26/2024 10:00:00 AM Scheduled Provider:CORAZON FRANCIS PA-C Location:[facility] [place] [facility] Appointment Type:URO Office Visit Future Scheduled Tests Laboratory* Fecal WBC Lactoferrin 09/15/23 * Giardia lamblia, Direct Detection EIA 09/15/23 * YAJAIRA and PE, Serum 02/16/24 * Immunoglobs. A/E/G/M 02/16/24 * O & P Exam, Routine 09/15/23 * Clostridium Difficile PCR 09/15/23 * Free K+L Lt Chains,Qn,S 02/16/24 * Enteric Panel by PCR 09/15/23 * CBC w/ Auto Diff 02/16/24 * Comprehensive Metabolic Panel 02/16/24 * Hepatic Function Panel 07/15/23 * Hepatic Function Panel 09/15/23 Radiology* XR Abdomen 1 View 04/21/23 * MA Mamm Diag w/CAD if perf and 3D RT 03/13/23 * MA Mamm Diag w/CAD if perf and 3D Azeem 02/16/24 [facility] [place] Evaluation + Plan note Future Appointments Appointment Date:10/14/2023 09:15:00 AM Scheduled Provider: [facility] Type:PT Re-Eval 45 (FT) Appointment Date:10/16/2023 01:30:00 PM Scheduled Provider:Trever CHERY, Jan Haas [facility] [place] [facility]oint[facility] Type:Cardiology New Patient (FT) Appointment Date:10/22/2023 10:00:00 AM Scheduled Provider: Location:[facility] Appointment Type:Chronic Care Dietary Appointment Date:11/04/2023 09:15:00 AM Scheduled Provider: [facility] Type:PT 45 (FT) Appointment Date:11/11/2023 09:30:00 AM Scheduled Provider: [facility] [place] App[facility] Type:PT Re-Eval 60 (FT) Appointment Date:11/18/2023 09:30:00 AM Scheduled Provider: [facility] [place] [facility] Type:PT 60 (FT) Appointment Date:11/25/2023 09:30:00 AM Scheduled Provider: [facility] [place] [facility] Type:PT 60 (FT) Appointment Date:12/02/2023 09:30:00 AM Scheduled Provider: [facility] Type:PT 60 (FT) Appointment Date:12/09/2023 09:30:00 AM Scheduled Provider: [facility] [place] App[facility] Type:PT Re-Eval 60 (FT) Appointment Date:12/14/2023 01:40:00 PM Scheduled Provider:Tammy Cantu CNP Location:[facility] [place] [facility] Appointment Type:BADH Follow Up Appointment Date:12/16/2023 11:30:00 AM Scheduled Provider: Location:.[place] Appointment Type:PT 60 (FT) Appointment Date:12/23/2023 11:30:00 AM Scheduled Provider: [facility] Type:PT Re-Eval 60 (FT) Appointment Date:01/08/2024 10:00:00 AM Scheduled Provider:Yelena Osorio MD Location:[facility] Appointment Type:GS Established 15 Appointment Date:01/14/2024 11:00:00 AM Scheduled Provider: Location:[facility] Appointment Type:FM Medicare Wellness Subsequent Appointment Date:01/25/2024 10:00:00 AM Scheduled Provider:Yelena MICHELLE MD Location:[facility] Appointment Type:FM Open Appointment Date:02/29/2024 10:00:00 AM Scheduled Provider:Regina Nick MD [facility] Type:ONC Office Visit 30 (FT) Appointment Date:04/26/2024 10:00:00 AM Scheduled Provider:CORAZON FRANCIS PA-C Location:[facility] [place] Appointment Type:URO Office Visit Future Scheduled Tests Laboratory* Fecal WBC Lactoferrin 09/15/23 * Giardia lamblia, Direct Detection EIA 09/15/23 * YAJAIRA and PE, Serum 02/16/24 * Immunoglobs. A/E/G/M 02/16/24 * O & P Exam, Routine 09/15/23 * Clostridium Difficile PCR 09/15/23 * Free K+L Lt Chains,Qn,S 02/16/24 * Enteric Panel by PCR 09/15/23 * CBC w/ Auto Diff 02/16/24 * Comprehensive Metabolic Panel 02/16/24 * Hepatic Function Panel 07/15/23 * Hepatic Function Panel 09/15/23 Radiology* XR Abdomen 1 View 04/21/23 * MA Mamm Diag w/CAD if perf and 3D RT 03/13/23 * MA Mamm Diag w/CAD if perf and 3D Azeem 02/16/24 [facility] Primary Care Evaluation + Plan note Future Appointments Appointment Date:10/22/2023 10:00:00 AM Scheduled Provider: Location:[facility] Appointment Type:Chronic Care Dietary Appointment Date:11/04/2023 09:15:00 AM Scheduled Provider: Location:.[place] Appointment Type:PT 45 (FT) Appointment Date:11/11/2023 09:30:00 AM Scheduled Provider: [facility] Type:PT Re-Eval 60 (FT) Appointment Date:11/18/2023 09:30:00 AM Scheduled Provider: Location:.[place] Appointment Type:PT 60 (FT) Appointment Date:11/25/2023 09:30:00 AM Scheduled Provider: [facility] Type:PT 60 (FT) Appointment Date:12/02/2023 09:30:00 AM Scheduled Provider: Location:[facility] Appointment Type:PT 60 (FT) Appointment Date:12/09/2023 09:30:00 AM Scheduled Provider: [facility] Type:PT Re-Eval 60 (FT) Appointment Date:12/14/2023 01:40:00 PM Scheduled Provider:Tammy Cantu CNP Location:[facility] [place] [facility] Appointment Type:BADH Follow Up Appointment Date:12/16/2023 11:30:00 AM Scheduled Provider: [facility] Type:PT 60 (FT) Appointment Date:12/23/2023 11:30:00 AM Scheduled Provider: [facility] Type:PT Re-Eval 60 (FT) Appointment Date:01/08/2024 10:00:00 AM Scheduled Provider:Yelena Osorio MD Location:[facility] Appointment Type:GS Established 15 Appointment Date:01/14/2024 11:00:00 AM Scheduled Provider: Location:[facility] Appointment Type:FM Medicare Wellness Subsequent Appointment Date:01/25/2024 10:00:00 AM Scheduled Provider:Yelena MICHELLE MD Location:[facility] Appointment Type:FM Open Appointment Date:02/29/2024 10:00:00 AM Scheduled Provider:Regina Nick MD Location:.ONCOLOGY Appointment Type:ONC Office Visit 30 (FT) Appointment Date:04/26/2024 10:00:00 AM Scheduled Provider:CORAZON FRANCIS PA-C Location:[facility] Appointment Type:URO Office Visit Future Scheduled Tests Laboratory* Fecal WBC Lactoferrin 09/15/23 * Giardia lamblia, Direct Detection EIA 09/15/23 * YAJAIRA and PE, Serum 02/16/24 * Immunoglobs. A/E/G/M 02/16/24 * O & P Exam, Routine 09/15/23 * Clostridium Difficile PCR 09/15/23 * Free K+L Lt Chains,Qn,S 02/16/24 * Enteric Panel by PCR 09/15/23 * CBC w/ Auto Diff 02/16/24 * Comprehensive Metabolic Panel 02/16/24 * Hepatic Function Panel 07/15/23 * Hepatic Function Panel 09/15/23 Radiology* XR Abdomen 1 View 04/21/23 * NM Myocardial Spect Rest/Stress 1 Day 10/16/23 * Echo Transthoracic Complete 10/16/23 * MA Mamm Diag w/CAD if perf and 3D RT 03/13/23 * MA Mamm Diag w/CAD if perf and 3D Azeem 02/16/24 [facility] Appointment Date:11/04/2023 09:15:00 AM Scheduled Provider: [facility] Type:PT Eval () Appointment Date:11/10/2023 10:00:00 AM Scheduled Provider: [facility] Type:CV Echo () Appointment Date:11/10/2023 11:30:00 AM Scheduled Provider: [facility] Appointment Type:NM Myocard Spect Multi Rest/Stress-Res Appointment Date:11/10/2023 12:30:00 PM Scheduled Provider: [facility] Appointment Type:NM Myocard Spect Multi Rest/Stress - R Appointment Date:11/10/2023 01:00:00 PM Scheduled Provider: [facility] Appointment Type:NM Myocard Spect Multi Rest/Stress-Str Appointment Date:11/10/2023 02:00:00 PM Scheduled Provider: [facility] Appointment Type:NM Myocar Spect Multi Rest/Stress - St Appointment Date:11/10/2023 02:30:00 PM Scheduled Provider: [facility] Appoint[facility] Type:CV Holter/Event () Appointment Date:11/11/2023 09:30:00 AM Scheduled Provider: Location:.[place] Appointment Type:PT Re-Eval 60 (FT) Appointment Date:11/18/2023 09:30:00 AM Scheduled Provider: Location[place] Appointment Type:PT 60 (FT) Appointment Date:11/25/2023 09:30:00 AM Scheduled Provider: Location[place] Appointment Type:PT 60 (FT) Appointment Date:12/02/2023 09:30:00 AM Scheduled Provider: [facility] Appointment Type:PT 60 (FT) Appointment Date:12/09/2023 09:30:00 AM Scheduled Provider: [facility] Type:PT Re-Eval 60 (FT) Appointment Date:12/14/2023 01:40:00 PM Scheduled Provider:Tammy Cantu CNP Location:[facility] [place] [facility] Appointment Type:BADH Follow Up Appointment Date:12/16/2023 11:30:00 AM Scheduled Provider: [facility] Type:PT 60 (FT) Appointment Date:12/16/2023 02:00:00 PM Scheduled Provider:Jan Perera MD [facility] Type:Cardiology Follow Up (FT) Appointment Date:12/23/2023 11:30:00 AM Scheduled Provider: Location:.[place] Appointment Type:PT Re-Eval 60 (FT) Appointment Date:01/08/2024 10:00:00 AM Scheduled Provider:Yelena Osorio MD Location:[facility] Appointment Type:GS Established 15 Appointment Date:01/14/2024 11:00:00 AM Scheduled Provider: Location:[facility] Appointment Type:FM Medicare Wellness Subsequent Appointment Date:01/25/2024 10:00:00 AM Scheduled Provider:Yelena MICHELLE MD Location:[facility] Appointment Type:FM Open Appointment Date:02/29/2024 10:00:00 AM Scheduled Provider:Regina Nick MD [facility] Type:ONC Office Visit 30 (FT) Appointment Date:04/26/2024 10:00:00 AM Scheduled Provider:CORAZON FRANCIS PA-C Location:[facility] Appointment Type:URO Office Visit Future Scheduled Tests Laboratory* Fecal WBC Lactoferrin 09/15/23 * Giardia lamblia, Direct Detection EIA 09/15/23 * YAJAIRA and PE, Serum 02/16/24 * Immunoglobs. A/E/G/M 02/16/24 * O & P Exam, Routine 09/15/23 * Clostridium Difficile PCR 09/15/23 * Free K+L Lt Chains,Qn,S 02/16/24 * Enteric Panel by PCR 09/15/23 * CBC w/ Auto Diff 02/16/24 * Comprehensive Metabolic Panel 02/16/24 * Hepatic Function Panel 07/15/23 * Hepatic Function Panel 09/15/23 Radiology* XR Abdomen 1 View 04/21/23 * NM Myocardial Spect Rest/Stress 1 Day 11/10/23 * Echo Transthoracic Complete 11/10/23 * MA Mamm Diag w/CAD if perf and 3D RT 03/13/23 * MA Mamm Diag w/CAD if perf and 3D Azeem 02/16/24 [facility] Primary Care Evaluation + Plan note Future Appointments Appointment Date:11/11/2023 09:30:00 AM Scheduled Provider: [facility] Type:PT 45 (FT) Appointment Date:11/13/2023 01:00:00 PM Scheduled Provider: [facility] [place] Type:PT 45 (FT) Appointment Date:11/18/2023 09:30:00 AM Scheduled Provider: [facility] Type:PT 45 (FT) Appointment Date:11/20/2023 01:00:00 PM Scheduled Provider: [facility] [place] Type:PT 45 (FT) Appointment Date:11/25/2023 09:30:00 AM Scheduled Provider: [place] [place] App[place] Type:PT 45 (FT) Appointment Date:11/27/2023 01:00:00 PM Scheduled Provider: [facility] Type:PT 45 (FT) Appointment Date:12/02/2023 09:30:00 AM Scheduled Provider: Location:[facility] Appointment Type:PT 45 (FT) Appointment Date:12/09/2023 09:30:00 AM Scheduled Provider: [facility] App[facility] Type:PT Re-Eval 60 (FT) Appointment Date:12/14/2023 01:40:00 PM Scheduled Provider:Tammy Cantu CNP Location:[facility] [place] [facility] Appointment Type:BADH Follow Up Appointment Date:12/16/2023 11:30:00 AM Scheduled Provider: [facility] Type:PT 60 (FT) Appointment Date:12/16/2023 02:00:00 PM Scheduled Provider:Jan Perera MD [facility] Type:Cardiology Follow Up (FT) Appointment Date:12/23/2023 11:30:00 AM Scheduled Provider: [facility] App[facility] Type:PT Re-Eval 60 (FT) Appointment Date:01/08/2024 10:00:00 AM Scheduled Provider:Yelena Osorio MD Location:[facility] Appointment Type:GS Established 15 Appointment Date:01/14/2024 11:00:00 AM Scheduled Provider: Location:[facility] Appointment Type:FM Medicare Wellness Subsequent Appointment Date:01/25/2024 10:00:00 AM Scheduled Provider:Yelena MICHELLE MD Location:[facility] Appointment Type:FM Open Appointment Date:02/29/2024 10:00:00 AM Scheduled Provider:Regina Nick MD [facility] Type:ONC Office Visit 30 (FT) Appointment Date:04/26/2024 10:00:00 AM Scheduled Provider:CORAZON FRANCIS PA-C Location:[facility] [place] Appointment Type:URO Office Visit Future Scheduled Tests Laboratory* Fecal WBC Lactoferrin 09/15/23 * Giardia lamblia, Direct Detection EIA 09/15/23 * YAJAIRA and PE, Serum 02/16/24 * Immunoglobs. A/E/G/M 02/16/24 * O & P Exam, Routine 09/15/23 * Clostridium Difficile PCR 09/15/23 * Free K+L Lt Chains,Qn,S 02/16/24 * Enteric Panel by PCR 09/15/23 * CBC w/ Auto Diff 02/16/24 * Comprehensive Metabolic Panel 02/16/24 * Hepatic Function Panel 07/15/23 * Hepatic Function Panel 09/15/23 Radiology* XR Abdomen 1 View 04/21/23 * MA Mamm Diag w/CAD if perf and 3D RT 03/13/23 * MA Mamm Diag w/CAD if perf and 3D Azeem 02/16/24 [facility]ments Appointment Date:12/16/2023 02:00:00 PM Scheduled Provider:Jan Perera MD [facility] Type:Cardiology Follow Up (FT) Appointment Date:01/08/2024 10:00:00 AM Scheduled Provider:Yelena Osorio MD Location:[facility] Appointment Type:GS Established 15 Appointment Date:01/14/2024 11:00:00 AM Scheduled Provider: Location:[facility] Appointment Type:FM Medicare Wellness Subsequent Appointment Date:01/25/2024 10:00:00 AM Scheduled Provider:Yelena MICHELLE MD Location:[facility] Appointment Type:FM Open Appointment Date:02/29/2024 10:00:00 AM Scheduled Provider:Regina Nick MD [facility] Type:ONC Office Visit 30 (FT) Appointment Date:04/26/2024 10:00:00 AM Scheduled Provider:CORAZON FRANCIS PA-C Location:[facility] [place] Appointment Type:URO Office Visit Appointment Date:06/15/2024 12:15:00 PM Scheduled Provider:Radha Waters MD Location:[facility] [place] Dig[facility]ive [facility] Appointment Type:BADH Follow Up Future Scheduled Tests Laboratory* Fecal WBC Lactoferrin 09/15/23 * Giardia lamblia, Direct Detection EIA 09/15/23 * YAJAIRA and PE, Serum 02/16/24 * Immunoglobs. A/E/G/M 02/16/24 * O & P Exam, Routine 09/15/23 * Clostridium Difficile PCR 09/15/23 * Free K+L Lt Chains,Qn,S 02/16/24 * Enteric Panel by PCR 09/15/23 * CBC w/ Auto Diff 02/16/24 * Comprehensive Metabolic Panel 02/16/24 * Hepatic Function Panel 07/15/23 * Hepatic Function Panel 09/15/23 Radiology* XR Abdomen 1 View 04/21/23 * MA Mamm Diag w/CAD if perf and 3D RT 03/13/23 * MA Mamm Diag w/CAD if perf and 3D Azeem 02/16/24 [facility] Dig[facility]ive [facility] Evaluation + Plan note Future Appointments Appointment Date:01/08/2024 10:00:00 AM Scheduled Provider:Yelena Osorio MD Location:[facility] Appointment Type:GS Established 15 Appointment Date:01/14/2024 11:00:00 AM Scheduled Provider: Location:[facility] Appointment Type:FM Medicare Wellness Subsequent Appointment Date:01/25/2024 10:00:00 AM Scheduled Provider:Yelena MICHELLE MD Location:[facility] Appointment Type:FM Open Appointment Date:02/29/2024 10:00:00 AM Scheduled Provider:Regina Nick MD Location:.ONCOLOGY Appointment Type:ONC Office Visit 30 (FT) Appointment Date:04/26/2024 10:00:00 AM Scheduled Provider:CORAZON FRANCIS PA-C Location:[facility] [place] Appointment Type:URO Office Visit Appointment Date:06/15/2024 12:15:00 PM Scheduled Provider:Radha Waters MD Location:[facility] [place] Dig[facility] Appointment Type:BADH Follow Up Appointment Date:06/16/2024 10:45:00 AM Scheduled Provider:Trever CHERY, Jan Haas Location:.[facility] Clinic Appointment Type:Cardiology Follow Up (FT) Future Scheduled Tests Laboratory* Fecal WBC Lactoferrin 09/15/23 * Giardia lamblia, Direct Detection EIA 09/15/23 * YAJAIRA and PE, Serum 02/16/24 * Immunoglobs. A/E/G/M 02/16/24 * O & P Exam, Routine 09/15/23 * Clostridium Difficile PCR 09/15/23 * Free K+L Lt Chains,Qn,S 02/16/24 * Enteric Panel by PCR 09/15/23 * CBC w/ Auto Diff 02/16/24 * Comprehensive Metabolic Panel 02/16/24 * Hepatic Function Panel 07/15/23 * Hepatic Function Panel 09/15/23 Radiology* XR Abdomen 1 View 04/21/23 * MA Mamm Diag w/CAD if perf and 3D RT 03/13/23 * MA Mamm Diag w/CAD if perf and 3D Azeem 02/16/24 [facility] App[facility]ments Appointment Date:01/14/2024 11:00:00 AM Scheduled Provider: Location:[facility] Appointment Type:FM Medicare Wellness Subsequent Appointment Date:02/29/2024 09:00:00 AM Scheduled Provider:Yelena MICHELLE MD Location:[facility] Appointment Type:FM Open Appointment Date:02/29/2024 10:00:00 AM Scheduled Provider:Sandoval CHERY, Regina He [facility] App[facility] Type:ONC Office Visit 30 (FT) Appointment Date:04/11/2024 01:40:00 PM Scheduled Provider:Yelena Osorio MD Location:[facility] Appointment Type:GS Established 15 Appointment Date:04/26/2024 10:00:00 AM Scheduled Provider:CORAZON FRANCIS PA-C Location:[facility] [place] Appointment Type:URO Office Visit Appointment Date:06/15/2024 12:15:00 PM Scheduled Provider:Radha Waters MD Location:[facility] [place] Dig[facility]ive [facility] Appointment Type:BADH Follow Up Appointment Date:06/16/2024 10:45:00 AM Scheduled Provider:Trever CHERY, Jan Haas Location:.[facility]iology Clinic Appointment Type:Cardiology Follow Up (FT) Future Scheduled Tests Laboratory* Fecal WBC Lactoferrin 09/15/23 * Giardia lamblia, Direct Detection EIA 09/15/23 * YAJAIRA and PE, Serum 02/16/24 * Immunoglobs. A/E/G/M 02/16/24 * O & P Exam, Routine 09/15/23 * Clostridium Difficile PCR 09/15/23 * Free K+L Lt Chains,Qn,S 02/16/24 * Enteric Panel by PCR 09/15/23 * CBC w/ Auto Diff 02/16/24 * Comprehensive Metabolic Panel 02/16/24 * Hepatic Function Panel 07/15/23 * Hepatic Function Panel 09/15/23 Radiology* XR Abdomen 1 View 04/21/23 * MA Mamm Diag w/CAD if perf and 3D RT 03/13/23 * MA Mamm Diag w/CAD if perf and 3D Azeem 02/16/24 [facility] General Surgery [place] Evaluation + Plan note Future Appointments Appointment Date:02/29/2024 09:00:00 AM Scheduled Provider:Yelena MICHELLE MD Location:[facility] Appointment Type:FM Open Appointment Date:02/29/2024 10:00:00 AM Scheduled Provider:Regina Nick MD [facility] Type:ONC Office Visit 30 (FT) Appointment Date:04/11/2024 01:40:00 PM Scheduled Provider:Yelena Osorio MD Location:[facility] Appointment Type:GS Established 15 Appointment Date:04/26/2024 10:00:00 AM Scheduled Provider:CORAZON FRANCIS PA-C Location:[facility] [place] [facility] [place] Appointment Type:URO Office Visit Appointment Date:06/15/2024 12:15:00 PM Scheduled Provider:Radha Waters MD Location:[facility] [place] [facility] Appointment Type:BADH Follow Up Appointment Date:06/16/2024 10:45:00 AM Scheduled Provider:Jan Perera MD [facility] Type:Cardiology Follow Up (FT) Appointment Date:01/16/2025 02:30:00 PM Scheduled Provider: Location:[facility] Appointment Type: Medicare Wellness Subsequent Future Scheduled Tests Laboratory* Fecal WBC Lactoferrin 09/15/23 * Giardia lamblia, Direct Detection EIA 09/15/23 * YAJAIRA and PE, Serum 02/16/24 * Immunoglobs. A/E/G/M 02/16/24 * O & P Exam, Routine 09/15/23 * Clostridium Difficile PCR 09/15/23 * Free K+L Lt Chains,Qn,S 02/16/24 * Enteric Panel by PCR 09/15/23 * CBC w/ Auto Diff 02/16/24 * Comprehensive Metabolic Panel 02/16/24 * Hepatic Function Panel 07/15/23 * Hepatic Function Panel 09/15/23 Radiology* XR Abdomen 1 View 04/21/23 * MA Mamm Diag w/CAD if perf and 3D RT 03/13/23 * MA Mamm Diag w/CAD if perf and 3D Azeem 02/16/24 [facility] Primary Care Evaluation + Plan note Future Appointments Appointment Date:02/17/2024 10:15:00 AM Scheduled Provider: [facility] Appoint[facility] Type:MA Diagnostic (FT) Appointment Date:02/29/2024 09:00:00 AM Scheduled Provider:Yelena MICHELLE MD Location:[facility] Appointment Type: Open Appointment Date:02/29/2024 10:00:00 AM Scheduled Provider:Regina Nick MD [facility] Appoint[facility] Type:ONC Office Visit 30 (FT) Appointment Date:04/11/2024 01:40:00 PM Scheduled Provider:Yelena Osorio MD Location:[facility] Appointment Type:GS Established 15 Appointment Date:04/26/2024 10:00:00 AM Scheduled Provider:CORAZON FRANCIS PA-C Location:[facility] [place] [facility] [place] Appointment Type:URO Office Visit Appointment Date:06/15/2024 12:15:00 PM Scheduled Provider:Radha Waters MD Location:[facility] [place] Dig[facility]ive [facility] Appointment Type:BADH Follow Up Appointment Date:06/16/2024 10:45:00 AM Scheduled Provider:Jan Perera MD [facility] Type:Cardiology Follow Up (FT) Appointment Date:01/16/2025 02:30:00 PM Scheduled Provider: Location:[facility] Appointment Type: Medicare Wellness Subsequent Future Scheduled Tests Laboratory* Fecal WBC Lactoferrin 09/15/23 * Giardia lamblia, Direct Detection EIA 09/15/23 * YAJAIRA and PE, Serum 02/16/24 * Immunoglobs. A/E/G/M 02/16/24 * O & P Exam, Routine 09/15/23 * Clostridium Difficile PCR 09/15/23 * Free K+L Lt Chains,Qn,S 02/16/24 * Enteric Panel by PCR 09/15/23 * CBC w/ Auto Diff 02/16/24 * Comprehensive Metabolic Panel 02/16/24 * Hepatic Function Panel 07/15/23 * Hepatic Function Panel 09/15/23 Radiology* XR Abdomen 1 View 04/21/23 * MA Mamm Diag w/CAD if perf and 3D RT 03/13/23 * MA Mamm Diag w/CAD if perf and 3D Azeem 02/17/24 [facility] Primary Care Evaluation + Plan note Future Appointments Appointment Date:02/29/2024 09:00:00 AM Scheduled Provider:Yelena MICHELLE MD Location:[facility] Appointment Type:FM Open Appointment Date:02/29/2024 10:00:00 AM Scheduled Provider:Regina Nick MD [facility] Type:ONC Office Visit 30 (FT) Appointment Date:04/11/2024 01:40:00 PM Scheduled Provider:Yelena Osorio MD Location:[facility] Appointment Type:GS Established 15 Appointment Date:04/26/2024 10:00:00 AM Scheduled Provider:CORAZON FRANCIS PA-C Location:[facility] [place] Appointment Type:URO Office Visit Appointment Date:06/15/2024 12:15:00 PM Scheduled Provider:Radha Waters MD Location:[facility] [place] Dig[facility]ive [facility] Appointment Type:BADH Follow Up Appointment Date:06/16/2024 10:45:00 AM Scheduled Provider:Jan Perera MD [facility] Type:Cardiology Follow Up (FT) Appointment Date:01/16/2025 02:30:00 PM Scheduled Provider: Location:[facility] Appointment Type: Medicare Wellness Subsequent Future Scheduled Tests Laboratory* Fecal WBC Lactoferrin 09/15/23 * Giardia lamblia, Direct Detection EIA 09/15/23 * YAJAIRA and PE, Serum 02/16/24 * Immunoglobs. A/E/G/M 02/16/24 * O & P Exam, Routine 09/15/23 * Clostridium Difficile PCR 09/15/23 * Free K+L Lt Chains,Qn,S 02/16/24 * Enteric Panel by PCR 09/15/23 * CBC w/ Auto Diff 02/16/24 * Comprehensive Metabolic Panel 02/16/24 * Hepatic Function Panel 07/15/23 * Hepatic Function Panel 09/15/23 Radiology* XR Abdomen 1 View 04/21/23 * MA Mamm Diag w/CAD if perf and 3D RT 03/13/23 [facility] Evaluation + Plan note Future Appointments Appointment Date:02/29/2024 09:00:00 AM Scheduled Provider:Yelena MICHELLE MD Location:[facility] Appointment Type:FM Open Appointment Date:02/29/2024 03:00:00 PM Scheduled Provider:Regina Nick MD [facility] Type:ONC Office Visit 30 (FT) Appointment Date:04/11/2024 01:40:00 PM Scheduled Provider:Yelena Osorio MD Location:[facility] Appointment Type: Established Appointment Date:04/26/2024 10:00:00 AM Scheduled Provider:CORAZON FRANCIS PA-C Location:[facility] [place] [facility] [place] Appointment Type:URO Office Visit Appointment Date:06/15/2024 12:15:00 PM Scheduled Provider:Radha Waters MD Location:[facility] [place] [facility] Appointment Type:BADH Follow Up Appointment Date:06/16/2024 10:45:00 AM Scheduled Provider:Jan Perera MD [facility] Type:Cardiology Follow Up (FT) Appointment Date:01/16/2025 02:30:00 PM Scheduled Provider: Location:[facility] Appointment Type: Medicare Wellness Subsequent Future Scheduled Tests Laboratory* Fecal WBC Lactoferrin 09/15/23 * Giardia lamblia, Direct Detection EIA 09/15/23 * O & P Exam, Routine 09/15/23 * Clostridium Difficile PCR 09/15/23 * Enteric Panel by PCR 09/15/23 * Hepatic Function Panel 07/15/23 * Hepatic Function Panel 09/15/23 Radiology* XR Abdomen 1 View 04/21/23 * MA Mamm Diag w/CAD if perf and 3D RT 03/13/23 [facility] Evaluation + Plan note Future Appointments Appointment Date:04/11/2024 01:40:00 PM Scheduled Provider:Yelena Osorio MD Location:[facility] Appointment Type: Established 15 Appointment Date:04/26/2024 10:00:00 AM Scheduled Provider:CORAZON FRANCIS PA-C Location:[facility] [place] Appointment Type:URO Office Visit Appointment Date:06/15/2024 12:15:00 PM Scheduled Provider:Radha Waters MD Location:[facility] [place] [facility] Appointment Type:BADH Follow Up Appointment Date:06/16/2024 10:45:00 AM Scheduled Provider:Jan Perera MD [facility] Type:Cardiology Follow Up (FT) Appointment Date:06/27/2024 11:20:00 AM Scheduled Provider:Yelena MICHELLE MD Location:[facility] Appointment Type:FM Open Appointment Date:08/29/2024 11:00:00 AM Scheduled Provider:Regina Nick MD [facility] Type:ONC Office Visit 20 (FT) Appointment Date:01/16/2025 02:30:00 PM Scheduled Provider: Location:[facility] Appointment Type: Medicare Wellness Subsequent Future Scheduled Tests Laboratory* Fecal WBC Lactoferrin 09/15/23 * HgbA1c 02/29/24 * Giardia lamblia, Direct Detection EIA 09/15/23 * YAJAIRA and PE, Serum 08/31/24 * Immunofixation Serum 08/31/24 * O & P Exam, Routine 09/15/23 * Clostridium Difficile PCR 09/15/23 * Free K+L Lt Chains,Qn,S 08/31/24 * Enteric Panel by PCR 09/15/23 * CBC w/ Auto Diff 02/29/24 * CBC w/ Auto Diff 08/31/24 * Comprehensive Metabolic Panel 02/29/24 * Comprehensive Metabolic Panel 08/31/24 * Hepatic Function Panel 07/15/23 * Hepatic Function Panel 09/15/23 * Lipid Panel 02/29/24 Radiology* XR Abdomen 1 View 04/21/23 * MA Mamm Diag w/CAD if perf and 3D RT 03/13/23 [facility] Evaluation + Plan note Future Appointments Appointment Date:04/11/2024 01:40:00 PM Scheduled Provider:Yelena Osorio MD Location:[facility] Appointment Type:GS Established 15 Appointment Date:04/26/2024 10:00:00 AM Scheduled Provider:CORAZON FRANCIS PA-C Location:[facility] Appointment Type:URO Office Visit Appointment Date:06/15/2024 12:15:00 PM Scheduled Provider:Radha Waters MD Location:[facility] [place] [facility] Appointment Type:BADH Follow Up Appointment Date:06/16/2024 10:45:00 AM Scheduled Provider:Jan [facility]rera [facility] Type:Cardiology Follow Up (FT) Appointment Date:06/27/2024 11:20:00 AM Scheduled Provider:Yelena MICHELLE MD Location:[facility] Appointment Type:FM Open Appointment Date:08/29/2024 11:00:00 AM Scheduled Provider:Regina Nick MD [facility]ONC Office Visit 20 (FT) Appointment Date:01/16/2025 02:30:00 PM Scheduled Provider: Location:[facility] Appointment Type: Medicare Wellness Subsequent Future Scheduled Tests Laboratory* Fecal WBC Lactoferrin 09/15/23 * HgbA1c 02/29/24 * Giardia lamblia, Direct Detection EIA 09/15/23 * YAJAIRA and PE, Serum 08/31/24 * Immunofixation Serum 08/31/24 * O & P Exam, Routine 09/15/23 * Clostridium Difficile PCR 09/15/23 * Free K+L Lt Chains,Qn,S 08/31/24 * Enteric Panel by PCR 09/15/23 * CBC w/ Auto Diff 02/29/24 * CBC w/ Auto Diff 08/31/24 * Comprehensive Metabolic Panel 02/29/24 * Comprehensive Metabolic Panel 08/31/24 * Hepatic Function Panel 07/15/23 * Hepatic Function Panel 09/15/23 * Lipid Panel 02/29/24 Radiology* XR Abdomen 1 View 04/21/23 [facility] Evaluation + Plan note Future Appointments Appointment Date:04/26/2024 10:00:00 AM Scheduled Provider:CORAZON FRANCIS PA-C [facility]O Office Visit Appointment Date:06/15/2024 12:15:00 PM Scheduled Provider:Radha Waters MD Location:[facility] [place] [facility] Appointment Type:BAD Follow Up Appointment Date:06/16/2024 10:45:00 AM Scheduled Provider:Jan Perera MD [facility] Type:Cardiology Follow Up (FT) Appointment Date:06/27/2024 11:20:00 AM Scheduled Provider:Yelena MICHELLE MD Location:[facility] Appointment Type: Open Appointment Date:08/29/2024 11:00:00 AM Scheduled Provider:Regina Nick MD [facility] Type:ONC Office Visit 20 (FT) Appointment Date:10/11/2024 10:40:00 AM Scheduled Provider:Yelena Osorio MD Location:[facility] Appointment Type: Established 15 Appointment Date:01/16/2025 02:30:00 PM Scheduled Provider: Location:[facility] Appointment Type: Medicare Wellness Subsequent Future Scheduled Tests Laboratory* Fecal WBC Lactoferrin 09/15/23 * HgbA1c 02/29/24 * Giardia lamblia, Direct Detection EIA 09/15/23 * YAJAIRA and PE, Serum 08/31/24 * Immunofixation Serum 08/31/24 * O & P Exam, Routine 09/15/23 * Clostridium Difficile PCR 09/15/23 * Free K+L Lt Chains,Qn,S 08/31/24 * Enteric Panel by PCR 09/15/23 * CBC w/ Auto Diff 02/29/24 * CBC w/ Auto Diff 08/31/24 * Comprehensive Metabolic Panel 02/29/24 * Comprehensive Metabolic Panel 08/31/24 * Hepatic Function Panel 07/15/23 * Hepatic Function Panel 09/15/23 * Lipid Panel 02/29/24 [facility] Evaluation + Plan note Future Appointments Appointment Date:06/15/2024 12:15:00 PM Scheduled Provider:Radha Waters MD Location:[facility] [place] [facility] Appointment Type:BADH Follow Up Appointment Date:06/16/2024 10:45:00 AM Scheduled Provider:Jan Perera MD [facility] Type:Cardiology Follow Up (FT) Appointment Date:06/27/2024 11:20:00 AM Scheduled Provider:Yelena MICHELLE MD Location:[facility] Appointment Type: Open Appointment Date:08/29/2024 11:00:00 AM Scheduled Provider:Regina Nick MD [facility] Type:ONC Office Visit 20 (FT) Appointment Date:10/11/2024 10:40:00 AM Scheduled Provider:Yelena Osorio MD Location:[facility] Appointment Type: Established 15 Appointment Date:01/16/2025 02:30:00 PM Scheduled Provider: Location:[facility] Appointment Type: Medicare Wellness Subsequent Future Scheduled Tests Laboratory* Fecal WBC Lactoferrin 09/15/23 * HgbA1c 02/29/24 * Giardia lamblia, Direct Detection EIA 09/15/23 * YAJAIRA and PE, Serum 08/31/24 * Immunofixation Serum 08/31/24 * O & P Exam, Routine 09/15/23 * Clostridium Difficile PCR 09/15/23 * Free K+L Lt Chains,Qn,S 08/31/24 * Enteric Panel by PCR 09/15/23 * CBC w/ Auto Diff 02/29/24 * CBC w/ Auto Diff 08/31/24 * Comprehensive Metabolic Panel 02/29/24 * Comprehensive Metabolic Panel 08/31/24 * Hepatic Function Panel 07/15/23 * Hepatic Function Panel 09/15/23 * Lipid Panel 02/29/24 [facility] evaluation + Plan note Future Appointments Appointment Date:06/15/2024 12:15:00 PM Scheduled Provider:Radha Waters MD Location:[facility] [place] [facility] Appointment Type:BADH Follow Up Appointment Date:06/16/2024 10:45:00 AM Scheduled Provider:Edmond Vidal PA-C [facility] Type:Cardiology Follow Up (FT) Appointment Date:06/27/2024 11:20:00 AM Scheduled Provider:Yelena MICHELLE MD Location:[facility] Appointment Type: Open Appointment Date:08/29/2024 11:00:00 AM Scheduled Provider:Regina Nick MD [facility] Type:ONC Office Visit 20 (FT) Appointment Date:10/11/2024 10:40:00 AM Scheduled Provider:Yelena Osorio MD Location:[facility] Appointment Type:[facility] Appointment Date:01/16/2025 02:30:00 PM Scheduled Provider: Location:[facility] Appointment Type: Medicare Wellness Subsequent Future Scheduled Tests Laboratory* Fecal WBC Lactoferrin 09/15/23 * HgbA1c 02/29/24 * Giardia lamblia, Direct Detection EIA 09/15/23 * YAJAIRA and PE, Serum 08/31/24 * Immunofixation Serum 08/31/24 * O & P Exam, Routine 09/15/23 * Clostridium Difficile PCR 09/15/23 * Free K+L Lt Chains,Qn,S 08/31/24 * Enteric Panel by PCR 09/15/23 * CBC w/ Auto Diff 02/29/24 * CBC w/ Auto Diff 08/31/24 * Comprehensive Metabolic Panel 02/29/24 * Comprehensive Metabolic Panel 08/31/24 * Hepatic Function Panel 07/15/23 * Hepatic Function Panel 09/15/23 * Lipid Panel 02/29/24 [facility] Evaluation + Plan note Future Appointments Appointment Date:06/16/2024 10:45:00 AM Scheduled Provider:Edmond Vidal PA-C [facility] Type:Cardiology Follow Up (FT) Appointment Date:06/27/2024 11:20:00 AM Scheduled Provider:Yelena MICHELLE MD Location:[facility] Appointment Type: Open Appointment Date:08/11/2024 09:45:00 AM Scheduled Provider:Radha Watres MD Location:[facility] [place] [facility] Appointment Type:BADH Follow Up Appointment Date:08/29/2024 11:00:00 AM Scheduled Provider:Regina Nick MD [facility] Type:ONC Office Visit 20 (FT) Appointment Date:10/11/2024 10:40:00 AM Scheduled Provider:Yelena Osorio MD Location:[facility] Appointment Type:[facility] Appointment Date:01/16/2025 02:30:00 PM Scheduled Provider: Location:[facility] Appointment Type: Medicare Wellness Subsequent Future Scheduled Tests Laboratory* Fecal WBC Lactoferrin 09/15/23 * HgbA1c 02/29/24 * Giardia lamblia, Direct Detection EIA 09/15/23 * YAJAIRA and PE, Serum 08/31/24 * Immunofixation Serum 08/31/24 * O & P Exam, Routine 09/15/23 * Clostridium Difficile PCR 09/15/23 * Free K+L Lt Chains,Qn,S 08/31/24 * Enteric Panel by PCR 09/15/23 * CBC w/ Auto Diff 02/29/24 * CBC w/ Auto Diff 08/31/24 * Comprehensive Metabolic Panel 02/29/24 * Comprehensive Metabolic Panel 08/31/24 * Hepatic Function Panel 07/15/23 * Hepatic Function Panel 09/15/23 * Lipid Panel 02/29/24 [facility] Evaluation + Plan note Future Appointments Appointment Date:06/27/2024 11:20:00 AM Scheduled Provider:Yelena MICHELLE MD Location:[facility] Appointment Type: Open Appointment Date:07/28/2024 10:45:00 AM Scheduled Provider:Edmond Vidal PA-C Location[facility] Appointment Type:Cardiology Follow Up (FT) Appointment Date:08/11/2024 09:45:00 AM Scheduled Provider:Radha Waters MD Location:[facility] [place] [facility] Appointment Type:BADH Follow Up Appointment Date:08/29/2024 11:00:00 AM Scheduled Provider:Regina Nick MD [facility] Type:ONC Office Visit 20 (FT) Appointment Date:10/11/2024 10:40:00 AM Scheduled Provider:Yelena Osorio MD Location:[facility] Appointment Type:[facility] Appointment Date:01/16/2025 02:30:00 PM Scheduled Provider: Location:[facility] Appointment Type: Medicare Wellness Subsequent Future Scheduled Tests Laboratory* Fecal WBC Lactoferrin 09/15/23 * HgbA1c 02/29/24 * Giardia lamblia, Direct Detection EIA 09/15/23 * YAJAIRA and PE, Serum 08/31/24 * Immunofixation Serum 08/31/24 * O & P Exam, Routine 09/15/23 * Clostridium Difficile PCR 09/15/23 * Free K+L Lt Chains,Qn,S 08/31/24 * Enteric Panel by PCR 09/15/23 * CBC w/ Auto Diff 02/29/24 * CBC w/ Auto Diff 08/31/24 * Comprehensive Metabolic Panel 02/29/24 * Comprehensive Metabolic Panel 08/31/24 * Hepatic Function Panel 07/15/23 * Hepatic Function Panel 09/15/23 * Lipid Panel 02/29/24 Radiology* US PVR Lower EXT Complete Bilat 06/16/24 [facility] Evaluation + Plan note Future Appointments Appointment Date:06/24/2024 10:00:00 AM Scheduled Provider: [facility] Type:US Duplex Procedures (FT) Appointment Date:06/27/2024 11:20:00 AM Scheduled Provider:Yelena MICHELLE MD Location:[facility] Appointment Type:FM Open Appointment Date:07/28/2024 10:45:00 AM Scheduled Provider:Edmond Vidal PA-C [facility] Type:Cardiology Follow Up (FT) Appointment Date:08/11/2024 09:45:00 AM Scheduled Provider:Radha Waters MD Location:[facility] [place] [facility] Appointment Type:BADH Follow Up Appointment Date:08/29/2024 11:00:00 AM Scheduled Provider:Regina Nick MD [facility] Type:ONC Office Visit 20 (FT) Appointment Date:10/11/2024 10:40:00 AM Scheduled Provider:Yelena Osorio MD Location:[facility] Appointment Type: Established 15 Appointment Date:01/16/2025 02:30:00 PM Scheduled Provider: Location:[facility] Appointment Type: Medicare Wellness Subsequent Future Scheduled Tests Laboratory* Fecal WBC Lactoferrin 09/15/23 * Giardia lamblia, Direct Detection EIA 09/15/23 * YAJAIRA and PE, Serum 08/31/24 * Immunofixation Serum 08/31/24 * O & P Exam, Routine 09/15/23 * Clostridium Difficile PCR 09/15/23 * Free K+L Lt Chains,Qn,S 08/31/24 * Enteric Panel by PCR 09/15/23 * CBC w/ Auto Diff 08/31/24 * Comprehensive Metabolic Panel 08/31/24 * Hepatic Function Panel 07/15/23 * Hepatic Function Panel 09/15/23 Radiology* US PVR Lower EXT Complete Bilat 06/24/24 [facility] Evaluation + Plan note Future Appointments Appointment Date:06/27/2024 11:20:00 AM Scheduled Provider:Yelena MICHELLE MD Location:[facility] Appointment Type: Open Appointment Date:07/28/2024 10:45:00 AM Scheduled Provider:Edmond Vidal PA-C [facility] Type:Cardiology Follow Up (FT) Appointment Date:08/11/2024 09:45:00 AM Scheduled Provider:Radha Waters MD Location:[facility] [place] [facility] Appointment Type:BADH Follow Up Appointment Date:08/29/2024 11:00:00 AM Scheduled Provider:Regina Nick MD [facility] Type:ONC Office Visit 20 (FT) Appointment Date:10/11/2024 10:40:00 AM Scheduled Provider:Yelena Osorio MD Location:[facility] Appointment Type: Established 15 Appointment Date:01/16/2025 02:30:00 PM Scheduled Provider: Location:[facility] Appointment Type:FM Medicare Wellness Subsequent Future Scheduled Tests Laboratory* Fecal WBC Lactoferrin 09/15/23 * Giardia lamblia, Direct Detection EIA 09/15/23 * YAJAIRA and PE, Serum 08/31/24 * Immunofixation Serum 08/31/24 * O & P Exam, Routine 09/15/23 * Clostridium Difficile PCR 09/15/23 * Free K+L Lt Chains,Qn,S 08/31/24 * Enteric Panel by PCR 09/15/23 * CBC w/ Auto Diff 08/31/24 * Comprehensive Metabolic Panel 08/31/24 * Hepatic Function Panel 07/15/23 * Hepatic Function Panel 09/15/23 [facility] Evaluation + Plan note Future Appointments Appointment Date:07/28/2024 10:45:00 AM Scheduled Provider:Edmond Vidal PA-C [facility] Type:Cardiology Follow Up (FT) Appointment Date:08/11/2024 09:45:00 AM Scheduled Provider:Radha Waters MD Location:[facility] [place] [facility] Appointment Type:BADH Follow Up Appointment Date:08/29/2024 11:00:00 AM Scheduled Provider:Regina Nick MD [facility] Type:ONC Office Visit 20 (FT) Appointment Date:10/11/2024 10:40:00 AM Scheduled Provider:Yelena Osorio MD Location:[facility] Appointment Type: Established 15 Appointment Date:10/26/2024 10:00:00 AM Scheduled Provider:Yelena MICHELLE MD Location:[facility] Appointment Type:FM Open Appointment Date:01/16/2025 02:30:00 PM Scheduled Provider: Location:[facility] Appointment Type: Medicare Wellness Subsequent Future Scheduled Tests Laboratory* Fecal WBC Lactoferrin 09/15/23 * PTH Intact 06/27/24 * Giardia lamblia, Direct Detection EIA 09/15/23 * YAJAIRA and PE, Serum 08/31/24 * Immunofixation Serum 08/31/24 * O & P Exam, Routine 09/15/23 * Clostridium Difficile PCR 09/15/23 * Free K+L Lt Chains,Qn,S 08/31/24 * Enteric Panel by PCR 09/15/23 * Vitamin D 25 Hydroxy 06/27/24 * CBC w/ Auto Diff 08/31/24 * CBC w/ Auto Diff 06/27/24 * Comprehensive Metabolic Panel 08/31/24 * Comprehensive Metabolic Panel 06/27/24 * Hepatic Function Panel 07/15/23 * Hepatic Function Panel 09/15/23 [facility] Evaluation + Plan note Future Appointments Appointment Date:04/26/2024 10:00:00 AM Scheduled Provider:CORAZON FRANCIS PA-C Location:[facility] [place] [facility] Appointment Type:URO Office Visit Appointment Date:06/15/2024 12:15:00 PM Scheduled Provider:Radha Waters MD Location:[facility] [place] [facility] Appointment Type:BADH Follow Up Appointment Date:06/16/2024 10:45:00 AM Scheduled Provider:Jan Perera MD [facility] Type:Cardiology Follow Up (FT) Appointment Date:06/27/2024 11:20:00 AM Scheduled Provider:Yelena MICHELLE MD Location:[facility] Appointment Type: Open Appointment Date:08/29/2024 11:00:00 AM Scheduled Provider:Regina Nick MD [facility] Type:ONC Office Visit 20 (FT) Appointment Date:10/11/2024 10:40:00 AM Scheduled Provider:Yelena Osorio MD Location:[facility] Appointment Type:GS Established 15 Appointment Date:01/16/2025 02:30:00 PM Scheduled Provider: Location:[facility] Appointment Type:FM Medicare Wellness Subsequent Future Scheduled Tests Laboratory* Fecal WBC Lactoferrin 09/15/23 * HgbA1c 02/29/24 * Giardia lamblia, Direct Detection EIA 09/15/23 * YAJARIA and PE, Serum 08/31/24 * Immunofixation Serum 08/31/24 * O & P Exam, Routine 09/15/23 * Clostridium Difficile PCR 09/15/23 * Free K+L Lt Chains,Qn,S 08/31/24 * Enteric Panel by PCR 09/15/23 * CBC w/ Auto Diff 02/29/24 * CBC w/ Auto Diff 08/31/24 * Comprehensive Metabolic Panel 02/29/24 * Comprehensive Metabolic Panel 08/31/24 * Hepatic Function Panel 07/15/23 * Hepatic Function Panel 09/15/23 * Lipid Panel 02/29/24 Radiology* XR Abdomen 1 View 04/21/23 [facility] [place] Evaluation + Plan note Future Appointments Appointment Date:07/18/2024 01:40:00 PM Scheduled Provider:Yelena MICHELLE MD Location:[facility] Appointment Type: Same Day Appointment Date:07/28/2024 10:45:00 AM Scheduled Provider:Edmond Vidal PA-C [facility] Type:Cardiology Follow Up (FT) Appointment Date:08/11/2024 09:45:00 AM Scheduled Provider:Radha Waters MD Location:[facility] [place] [facility] Appointment Type:BADH Follow Up Appointment Date:08/29/2024 11:00:00 AM Scheduled Provider:Regina Nick MD [facility] Type:ONC Office Visit 20 (FT) Appointment Date:10/11/2024 10:40:00 AM Scheduled Provider:Yelena Osorio MD Location:[facility] Appointment Type: Established 15 Appointment Date:10/26/2024 10:00:00 AM Scheduled Provider:Yelena MICHELLE MD Location:[facility] Appointment Type: Open Appointment Date:01/16/2025 02:30:00 PM Scheduled Provider: Location:[facility] Appointment Type:FM Medicare Wellness Subsequent Future Scheduled Tests Laboratory* Fecal WBC Lactoferrin 09/15/23 * PTH Intact 06/27/24 * Giardia lamblia, Direct Detection EIA 09/15/23 * YAJAIRA and PE, Serum 08/31/24 * Immunofixation Serum 08/31/24 * O & P Exam, Routine 09/15/23 * Clostridium Difficile PCR 09/15/23 * Free K+L Lt Chains,Qn,S 08/31/24 * Enteric Panel by PCR 09/15/23 * Vitamin D 25 Hydroxy 06/27/24 * CBC w/ Auto Diff 08/31/24 * CBC w/ Auto Diff 06/27/24 * Comprehensive Metabolic Panel 08/31/24 * Comprehensive Metabolic Panel 06/27/24 * Hepatic Function Panel 07/15/23 * Hepatic Function Panel 09/15/23 [facility] Evaluation + Plan note Future Appointments Appointment Date:08/11/2024 09:45:00 AM Scheduled Provider:Radha Waters MD Location:[facility] [place] [facility] Appointment Type:BADH Follow Up Appointment Date:08/29/2024 11:00:00 AM Scheduled Provider:Regina Nick MD [facility] Type:ONC Office Visit 20 (FT) Appointment Date:10/11/2024 10:40:00 AM Scheduled Provider:Yelena Osorio MD Location:[facility] Appointment Type: Appointment Date:10/26/2024 10:00:00 AM Scheduled Provider:Yelena MICHELLE MD Location:[facility] Appointment Type:FM Open Appointment Date:01/16/2025 02:30:00 PM Scheduled Provider: Location:[facility] Appointment Type: Medicare Wellness Subsequent Appointment Date:01/25/2025 11:15:00 AM Scheduled Provider:Edmond Vidal PA-C [facility] Type:Cardiology Follow Up (FT) Future Scheduled Tests Laboratory* Fecal WBC Lactoferrin 09/15/23 * PTH Intact 06/27/24 * Giardia lamblia, Direct Detection EIA 09/15/23 * YAJAIRA and PE, Serum 08/31/24 * Immunofixation Serum 08/31/24 * O & P Exam, Routine 09/15/23 * Clostridium Difficile PCR 09/15/23 * Free K+L Lt Chains,Qn,S 08/31/24 * Enteric Panel by PCR 09/15/23 * Vitamin D 25 Hydroxy 06/27/24 * CBC w/ Auto Diff 08/31/24 * CBC w/ Auto Diff 06/27/24 * Comprehensive Metabolic Panel 08/31/24 * Comprehensive Metabolic Panel 06/27/24 * Hepatic Function Panel 07/15/23 * Hepatic Function Panel 09/15/23 [facility] Evaluation + Plan note Future Appointments Appointment Date:08/29/2024 11:00:00 AM Scheduled Provider:Regina Nick MD [facility] Type:ONC Office Visit 20 (FT) Appointment Date:09/01/2024 09:45:00 AM Scheduled Provider:Radha Waters MD Location:[facility] [place] [facility] Appointment Type:BADH Follow Up Appointment Date:10/11/2024 10:40:00 AM Scheduled Provider:Yelena Osorio MD Location:[facility] Appointment Type: Established 15 Appointment Date:10/26/2024 10:00:00 AM Scheduled Provider:Yelena MICHELLE MD Location:[facility] Appointment Type: Open Appointment Date:01/16/2025 02:30:00 PM Scheduled Provider: Location:[facility] Appointment Type: Medicare Wellness Subsequent Appointment Date:01/25/2025 11:15:00 AM Scheduled Provider:Edmond Vidal PA-C [facility] Type:Cardiology Follow Up (FT) Diagnostic Tests Pending * Free K+L Lt Chains,Qn,S 08/24/24 * YAJAIRA and PE, Serum 08/24/24 Future Scheduled Tests Laboratory* Fecal WBC Lactoferrin 09/15/23 * PTH Intact 06/27/24 * Giardia lamblia, Direct Detection EIA 09/15/23 * O & P Exam, Routine 09/15/23 * Clostridium Difficile PCR 09/15/23 * Enteric Panel by PCR 09/15/23 * Vitamin D 25 Hydroxy 06/27/24 * CBC w/ Auto Diff 06/27/24 * Comprehensive Metabolic Panel 06/27/24 * Hepatic Function Panel 07/15/23 * Hepatic Function Panel 09/15/23 [facility] Evaluation + Plan note Future Appointments Appointment Date:09/01/2024 09:45:00 AM Scheduled Provider:Radha Waters MD Location:[facility] [place] [facility] Appointment Type:[facility] Follow Up Appointment Date:10/11/2024 10:40:00 AM Scheduled Provider:Yelena Osorio MD Location:[facility] Appointment Type:[place] [id number] Appointment Date:10/26/2024 10:00:00 AM Scheduled Provider:Yelena MICHELLE MD Location:[facility] Appointment Type: Open Appointment Date:01/16/2025 02:30:00 PM Scheduled Provider: Location:[facility] Appointment Type: Medicare Wellness Subsequent Appointment Date:01/25/2025 11:15:00 AM Scheduled Provider:Edmond Vidal PA-C [facility] Type:Cardiology Follow Up (FT) Appointment Date:02/27/2025 10:40:00 AM Scheduled Provider:Regina Nick MD Location:[facility] Appointment Type:ONC Office Visit 20 (FT) Future Scheduled Tests Laboratory* Fecal WBC Lactoferrin 09/15/23 * PTH Intact 06/27/24 * Giardia lamblia, Direct Detection EIA 09/15/23 * YAJAIRA and PE, Serum 02/13/25 * Immunoglobs. A/E/G/M 02/13/25 * O & P Exam, Routine 09/15/23 * Clostridium Difficile PCR 09/15/23 * Free K+L Lt Chains,Qn,S 02/13/25 * Enteric Panel by PCR 09/15/23 * Vitamin D 25 Hydroxy 06/27/24 * CBC w/ Auto Diff 02/13/25 * CBC w/ Auto Diff 06/27/24 * Comprehensive Metabolic Panel 02/13/25 * Comprehensive Metabolic Panel 06/27/24 * Hepatic Function Panel 07/15/23 * Hepatic Function Panel 09/15/23 Radiology* BD Bone Density DEXA 04/26/25 * MA Mamm Screen w/CAD if perf and 3D Azeem 01/23/25 [facility] Evaluation + Plan note Future Appointments Appointment Date:09/09/2024 09:30:00 AM Scheduled Provider:Radha Waters MD Location:[facility] [place] [facility] Appointment Type:BADH Follow Up Appointment Date:10/11/2024 10:40:00 AM Scheduled Provider:Yelena Osorio MD Location:[facility] Appointment Type: Established 15 Appointment Date:10/26/2024 10:00:00 AM Scheduled Provider:Yelena MICHELLE MD Location:[facility] Appointment Type: Open Appointment Date:01/16/2025 02:30:00 PM Scheduled Provider: Location:[facility] Appointment Type: Medicare Wellness Subsequent Appointment Date:01/25/2025 11:15:00 AM Scheduled Provider:Edmond Vidal PA-C [facility] Type:Cardiology Follow Up (FT) Appointment Date:02/27/2025 10:40:00 AM Scheduled Provider:Regina Nick MD [facility] Type[facility]C Office Visit 20 (FT) Future Scheduled Tests Laboratory* Fecal WBC Lactoferrin 09/15/23 * PTH Intact 06/27/24 * Giardia lamblia, Direct Detection EIA 09/15/23 * YAJAIRA and PE, Serum 02/13/25 * Immunoglobs. A/E/G/M 02/13/25 * O & P Exam, Routine 09/15/23 * Clostridium Difficile PCR 09/15/23 * Free K+L Lt Chains,Qn,S 02/13/25 * Enteric Panel by PCR 09/15/23 * Vitamin D 25 Hydroxy 06/27/24 * CBC w/ Auto Diff 02/13/25 * CBC w/ Auto Diff 06/27/24 * Comprehensive Metabolic Panel 02/13/25 * Comprehensive Metabolic Panel 06/27/24 * Hepatic Function Panel 07/15/23 * Hepatic Function Panel 09/15/23 Radiology* BD Bone Density DEXA 04/26/25 * MA Mamm Screen w/CAD if perf and 3D Azeem 01/23/25 [facility] Evaluation + Plan note Future Appointments Appointment Date:10/11/2024 10:40:00 AM Scheduled Provider:Yelena Osorio MD Location:[facility] Appointment Type: Established 15 Appointment Date:10/26/2024 10:00:00 AM Scheduled Provider:Yelena MICHELLE MD Location:[facility] Appointment Type: Open Appointment Date:01/16/2025 02:30:00 PM Scheduled Provider: Location:[facility] Appointment Type: Medicare Wellness Subsequent Appointment Date:01/25/2025 11:15:00 AM Scheduled Provider:Edmond Vidal PA-C [facility] Appointment Type:Cardiology Follow Up (FT) Appointment Date:02/27/2025 10:40:00 AM Scheduled Provider:Sandoval CHERY, Regina He Location:.ONCOLOGY Appointment Type:ONC Office Visit 20 (FT) Future Scheduled Tests Laboratory* Fecal WBC Lactoferrin 09/15/23 * PTH Intact 06/27/24 * Giardia lamblia, Direct Detection EIA 09/15/23 * YAJAIRA and PE, Serum 02/13/25 * Immunoglobs. A/E/G/M 02/13/25 * O & P Exam, Routine 09/15/23 * Clostridium Difficile PCR 09/15/23 * Free K+L Lt Chains,Qn,S 02/13/25 * Enteric Panel by PCR 09/15/23 * Vitamin D 25 Hydroxy 06/27/24 * CBC w/ Auto Diff 02/13/25 * CBC w/ Auto Diff 06/27/24 * Comprehensive Metabolic Panel 02/13/25 * Comprehensive Metabolic Panel 06/27/24 * Hepatic Function Panel 07/15/23 * Hepatic Function Panel 09/15/23 Radiology* BD Bone Density DEXA 04/26/25 * MA Mamm Screen w/CAD if perf and 3D Azeem 01/23/25 [facility] Evaluation + Plan note Future Appointments Appointment Date:10/11/2024 10:40:00 AM Scheduled Provider:Yelena Osorio MD Location:[facility] Appointment Type: Established 15 Appointment Date:10/26/2024 10:00:00 AM Scheduled Provider:Yelena MICHELLE MD Location:[facility] Appointment Type: Open Appointment Date:01/16/2025 02:30:00 PM Scheduled Provider: Location:[facility] Appointment Type: Medicare Wellness Subsequent Appointment Date:01/25/2025 11:15:00 AM Scheduled Provider:Edmond Vidal PA-C [facility] Type:Cardiology Follow Up (FT) Appointment Date:02/27/2025 10:40:00 AM Scheduled Provider:Regina Nick MD Location:.ONCOLOGY Appointment Type:ONC Office Visit 20 (FT) Future Scheduled Tests Laboratory* PTH Intact 06/27/24 * YAJAIRA and PE, Serum 02/13/25 * Immunoglobs. A/E/G/M 02/13/25 * Free K+L Lt Chains,Qn,S 02/13/25 * Vitamin D 25 Hydroxy 06/27/24 * CBC w/ Auto Diff 02/13/25 * CBC w/ Auto Diff 06/27/24 * Comprehensive Metabolic Panel 02/13/25 * Comprehensive Metabolic Panel 06/27/24 Radiology* BD Bone Density DEXA 04/26/25 * MA Mamm Screen w/CAD if perf and 3D Azeem 01/23/25 [facility] Evaluation + Plan note Future Appointments Appointment Date:10/26/2024 10:00:00 AM Scheduled Provider:Yelena MICHELLE MD Location:[facility] Appointment Type:FM Open Appointment Date:01/16/2025 02:30:00 PM Scheduled Provider: Location:[facility] Appointment Type:FM Medicare Wellness Subsequent Appointment Date:01/25/2025 11:15:00 AM Scheduled Provider:Edmond Vidal PA-C [facility] Type:Cardiology Follow Up (FT) Appointment Date:02/27/2025 10:40:00 AM Scheduled Provider:Regina Nick MD [facility] Type:ONC Office Visit 20 (FT) Appointment Date:04/07/2025 11:00:00 AM Scheduled Provider:Yelena Osorio MD Location:[facility] Appointment Type:GS Established 15 Diagnostic Tests Pending * PTH Intact 10/21/24 Future Scheduled Tests Laboratory* YAJAIRA and PE, Serum 02/13/25 * Immunoglobs. A/E/G/M 02/13/25 * Free K+L Lt Chains,Qn,S 02/13/25 * CBC w/ Auto Diff 02/13/25 * Comprehensive Metabolic Panel 02/13/25 Radiology* BD Bone Density DEXA 04/26/25 * MA Mamm Screen w/CAD if perf and 3D Azeem 01/23/25 [facility] Evaluation + Plan note Future Appointments Appointment Date:01/25/2025 11:15:00 AM Scheduled Provider:Edmond Vidal PA-C [facility] Type:Cardiology Follow Up (FT) Appointment Date:02/27/2025 10:40:00 AM Scheduled Provider:Regina Nick MD [facility] Type:ONC Office Visit 20 (FT) Appointment Date:03/01/2025 11:00:00 AM Scheduled Provider:Yelena MICHELLE MD Location:[facility] Appointment Type:FM Open Appointment Date:03/01/2025 01:00:00 PM Scheduled Provider: Location:[facility] Appointment Type:FM Medicare Wellness Subsequent Appointment Date:04/07/2025 11:00:00 AM Scheduled Provider:Yelena Osorio MD Location:[facility] Appointment Type: Established 15 Future Scheduled Tests Laboratory* HgbA1c 10/26/24 * YAJAIRA and PE, Serum 02/13/25 * Immunoglobs. A/E/G/M 02/13/25 * Free K+L Lt Chains,Qn,S 02/13/25 * Vitamin D 25 Hydroxy 10/26/24 * CBC w/ Auto Diff 10/26/24 * CBC w/ Auto Diff 02/13/25 * Comprehensive Metabolic Panel 10/26/24 * Comprehensive Metabolic Panel 02/13/25 * Lipid Panel 10/26/24 Radiology* BD Bone Density DEXA 04/26/25 * MA Mamm Screen w/CAD if perf and 3D Azeem 01/23/25 [facility] Evaluation note* Diagnosis Nephrolithiasis- Primary Calculus of kidney Nephrolithiasis Calculus of kidney Obstruction of right ureter Primary hypertension Unspecified essential hypertension Tachycardia, paroxysmal (HCC) Paroxysmal tachycardia, unspecified documented in this encounter [facility] Work Phone: [email or web address] note* Diagnosis Primary hypertension Unspecified essential hypertension Tachycardia, paroxysmal (HCC) Paroxysmal tachycardia, unspecified Right ureteral stone Calculus of ureter documented in this encounter [facility]vivioMEM[facility] Work Phone: [email or web address] noteNo assessment information available [facility] Work Phone: Evaluation note* Diagnosis Onset Date Resolution Status Breast cancer, right breast acute [facility] Work Phone: Evaluation note* Diagnosis Leg ulcer, right, limited to breakdown of skin (CMS/HCC)- Primary [facility]* Diagnosis Neoplasm of unspecified behavior of bone, soft tissue, and skin- Primary [facility] this [facility]* Diagnosis Impetigo documented in this encounter [facility]* Diagnosis Impetigo- Primary Stasis dermatitis of both legs Erythema intertrigo Other specified erythematous condition documented in this encounter [facility] general Narrative - Reported* Type Description Date Medical History Arthritis Medical History Bowel habit changes Medical History Acid reflux Medical History Macular degeneration Medical History Vertigo Surgical History none at this time Surgical History bilateral TKA 06/2020 Hospitalization History bronchitis [employer] Other Hospital course Narrative No data available for this section [facility] No data available for this section [facility] Discharge instructionsAmbulatory Orders* Referral to PT / OT / Speech (PT/OT/SP) Location: None [facility] Work Phone: Hospital Discharge instructionsAmbulatory Orders* Referral to Pain Management Location: None [facility] Work Phone: Progress note No data available for this section [facility] (narrative) , Patient wants to know if her incontinence is coming from her back problems. Referred by: WAYNE CHERY, Yelena Howard [facility] reason for referral (narrative) Referred by: Yelena MICHELLE MD [facility] Renbwz for referral (narrative) , Dr. Asher Referred by: Yelena MICHELLE MD [facility] reason for referral (narrative)No reason for referral information availableKing[facility] [place] Work Phone: Summary Purpose Family History No Family History Records Found Relationship Condition Age at Onset Recorded Date/T rowan brother Chronic obstructive pulmonary disease Unk nown Heart problem Unknown Not Specified Chronic obstructive pulmonary disease Un known brother Heart problem Unknown father Neoplasm of brain Unknown grandparent Diabetes mellitus Unknown family member Diabetes mellitus Unknown Relationship Condition Age at Onset Recorded Date/T rowan brother Chronic obstructive pulmonary disease Unk nown Heart problem Unknown mother Chronic obstructive pulmonary disease Unk nown brother Heart problem Unknown father Neoplasm of brain Unknown grandparent Diabetes mellitus Unknown family member Diabetes mellitus Unknown brother Diabetes mellitus Unknown father Unknown Malignant neoplasm Unknown Neoplasm of brain Unknown mother Heart failure Unknown Unknown Heart disease Unknown Advance Directives No Advanced Directives Records FoundLatest Code Status on File Code Status Date Activated Date Inactivated Comments Full Code 07/23/2022 1:42 PM Latest Code Status on File Code Status Date Activated Date Inactivated Comments Full Code 07/23/2022 1:42 PM 07/24/2022 4:35 PM Advance Directive Response Recorded Date/ Time Advance Directives No April 30, 2017 11:01am Advance Directive Response Recorded Date/ Time Advance Directives No April 30, 2017 10:01am Advance Directive Response Recorded Date/ Time Advance Directives No December 12 2:48pm Advance Directive Response Recorded Date/ Time Advance Directives No February 13 11:44am Reason for Referral Specialty Diagnoses / Procedures Referred By Juice t Referred To Contact Diagnoses Primary hypertension Tachycardia, paroxysmal (HCC) Procedures ECHO 2D WO Color Doppler Complete Luis Manuel Sam MD [facility] [place] [address] Referral ID Status Reason Start Date Expiration Date V isits Requested Visits Authorized [id number] Pending Review 07/24/2022 07/24/2023 1 1 Chief Complaint and Reason for Visit Chief Complaint r29.898 Chief Complaint r29.898 Breast Cancer Reason for Visit Breast cancer, right breast Chief Complaint Admit Date Dorsalgia, unspecified August 08 1:55pm Chief Complaint Admit Date Dorsalgia, unspecified August 08 1:55pm M48.00 August 18, 2024 9 :51am Reason for Visit Admit Date Lumbar back pain August 08, 2024 1 :55pm Chief Complaint Admit Date Dorsalgia, unspecified August 08 1:55pm M48.00 August 18, 2024 9 :51am mri results September 23, 2024 9:30am Chief Complaint Admit Date Dorsalgia, unspecified August 08 1:55pm M48.00 August 18, 2024 9 :51am mri results September 23, 2024 9:30am REFF BY DR. MATTHEW BRAVO October 03 1:52pm Reason for Visit Admit Date Lumbar back pain August 08, 2024 1 :55pm Lumbar back pain September 23, 2024 9:30am Lumbosacral spondylosis October 03, 2024 1:52pm Other chronic pain October 03, 2024 1:5 2pm Sacroiliitis October 03, 2024 1:5 2pm Chief Complaint Admit Date Dorsalgia, unspecified August 08 1:55pm M48.00 August 18, 2024 9 :51am mri results September 23, 2024 9:30am REFF BY DR. MATTHEW BRAVO October 03 1:52pm back pain October 12, 2024 8:5 5am back pain October 12, 2024 11: 08am Chief Complaint Admit Date Dorsalgia, unspecified August 08 1:55pm M48.00 August 18, 2024 9 :51am mri results September 23, 2024 9:30am REFF BY DR. MATTHEW BRAVO October 03 1:52pm back pain October 12, 2024 8:5 5am back pain October 12, 2024 11: 08am follow up after Bilat SI October 19 2:38pm Reason for Visit Admit Date Lumbar back pain August 08, 2024 1 :55pm Lumbar back pain September 23, 2024 9:30am Lumbosacral spondylosis October 03, 2024 1:52pm Other chronic pain October 03, 2024 1:5 2pm Sacroiliitis October 03, 2024 1:5 2pm Lumbosacral spondylosis October 19, 2024 2:38pm Other chronic pain October 19, 2024 2:3 8pm Sacroiliitis October 19, 2024 2:3 8pm Chief Complaint Admit Date Dorsalgia, unspecified August 08 1:55pm M48.00 August 18, 2024 9 :51am mri results September 23, 2024 9:30am REFF BY DR. MATTHEW BRAVO October 03 1:52pm back pain October 12, 2024 8:5 5am back pain October 12, 2024 11: 08am follow up after Bilat SI October 19 2:38pm bilateral L3,4,5 lumabr facet MBB November 01, 2024 2:00pm Chief Complaint Admit Date M48.00 August 18, 2024 9 :51am mri results September 23, 2024 9:30am REFF BY DR. MATTHEW BRAVO October 03 1:52pm back pain October 12, 2024 8:5 5am back pain October 12, 2024 11: 08am follow up after Bilat SI October 19 2:38pm bilateral L3,4,5 lumabr facet MBB November 01, 2024 2:00pm f/u after azeem lumbar facet MBB October 2:47pm Reason for Visit Admit Date Lumbar back pain September 23, 2024 9:30am Lumbosacral spondylosis October 03, 2024 1:52pm Other chronic pain October 03, 2024 1:5 2pm Sacroiliitis October 03, 2024 1:5 2pm Lumbosacral spondylosis October 19, 2024 2:38pm Other chronic pain October 19, 2024 2:3 8pm Sacroiliitis October 19, 2024 2:3 8pm Lumbosacral spondylosis November 09, 2024 2:47pm Other chronic pain November 09, 2024 2:4 7pm Sacroiliitis November 09, 2024 2:4 7pm Chief Complaint Admit Date mri results September 23, 2024 9:30am REFF BY DR. MATTHEW BRAVO October 03 1:52pm back pain October 12, 2024 8:5 5am back pain October 12, 2024 11: 08am follow up after Bilat SI October 19 2:38pm bilateral L3,4,5 lumabr facet MBB November 01, 2024 2:00pm f/u after azeem lumbar facet MBB October 2:47pm AZEEM LUMBAR FACET MBB L3,4,5 December 06 1:04pm Chief Complaint Admit Date REFF BY DR. MATTHEW BRAVO October 03 1:52pm back pain October 12, 2024 8:5 5am back pain October 12, 2024 11: 08am follow up after Bilat SI October 19 2:38pm bilateral L3,4,5 lumabr facet MBB November 01, 2024 2:00pm f/u after azeem lumbar facet MBB October 2:47pm AZEEM LUMBAR FACET MBB L3,4,5 December 06 1:04pm FOLLOW UP AFTER AZEEM LUMBAR MBB December 12, 2024 2:27pm follow up after pain management November 10:18am Reason for Visit Admit Date Lumbosacral spondylosis October 03, 2024 1:52pm Other chronic pain October 03, 2024 1:5 2pm Sacroiliitis October 03, 2024 1:5 2pm Lumbosacral spondylosis October 19, 2024 2:38pm Other chronic pain October 19, 2024 2:3 8pm Sacroiliitis October 19, 2024 2:3 8pm Lumbosacral spondylosis November 09, 2024 2:47pm Other chronic pain November 09, 2024 2:4 7pm Sacroiliitis November 09, 2024 2:4 7pm Lumbosacral spondylosis December 12, 2024 2 :27pm Other chronic pain December 12, 2024 2:27p m Sacroiliitis December 12, 2024 2:27p m Chief Complaint Admit Date REFF BY DR. MATTHEW BRAVO October 03 1:52pm back pain October 12, 2024 8:5 5am back pain October 12, 2024 11: 08am follow up after Bilat SI October 19 2:38pm bilateral L3,4,5 lumabr facet MBB November 01, 2024 2:00pm f/u after azeem lumbar facet MBB October 2:47pm AZEEM LUMBAR FACET MBB L3,4,5 December 06 1:04pm FOLLOW UP AFTER AZEEM LUMBAR MBB December 12, 2024 2:27pm follow up after pain management November 10:18am azeem lumbar facet medial branch RFA L3, L 4, L5 December 27, 2024 2:46pm Reason for Visit Admit Date Lumbosacral spondylosis October 03, 2024 1:52pm Other chronic pain October 03, 2024 1:5 2pm Sacroiliitis October 03, 2024 1:5 2pm Lumbosacral spondylosis October 19, 2024 2:38pm Other chronic pain October 19, 2024 2:3 8pm Sacroiliitis October 19, 2024 2:3 8pm Lumbosacral spondylosis November 09, 2024 2:47pm Other chronic pain Marilyn 16th, 2025 2:4 7pm Sacroiliitis November 09, 2024 2:4 7pm Lumbosacral spondylosis December 12, 2024 2 :27pm Other chronic pain December 12, 2024 2:27p m Sacroiliitis December 12, 2024 2:27p m Lumbosacral spondylosis December 21, 2024 1 0:18am Chief Complaint Admit Date AZEEM LUMBAR FACET MBB L3,4,5 December 06 1:04pm FOLLOW UP AFTER AZEEM LUMBAR MBB December 12, 2024 2:27pm follow up after pain management November 10:18am azeem lumbar facet medial branch RFA L3, L 4, L5 December 27, 2024 2:46pm 2 week follow up after lumbar RFA December 252024 10:58am 2 week follow up after lumbar RFA January 252024 11:01am Reason for Visit Admit Date Lumbosacral spondylosis December 12, 2024 2 :27pm Other chronic pain December 12, 2024 2:27p m Sacroiliitis December 12, 2024 2:27p m Lumbosacral spondylosis December 21, 2024 1 0:18am Lumbosacral spondylosis January 11, 2025 10:58am Other chronic pain January 11, 2025 10:5 8am Sacroiliitis January 11, 2025 10:5 8am Lumbar radiculopathy February 13, 2025 11: 01am Lumbosacral spondylosis February 13, 2025 11:01am 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 February 13, 2025 11:01am Other chronic pain February 13, 2025 11:0 1am Sacroiliitis February 13, 2025 11:0 1am Additional Source Comments INFORMATION SOURCE (unrecogn ized section and content) DATE CREATED AUTHOR 07/05/2018 [facility] DATE CREATED AUTHOR AUTHOR'S ORGANIZ ATION 07/24/2022 [facility] DATE CREATED AUTHOR AUTHOR'S ORGANIZ ATION 08/30/2022 [facility] DATE CREATED AUTHOR AUTHOR'S ORGANIZ ATION 09/11/2022 [facility] DATE CREATED AUTHOR AUTHOR'S ORGANIZ ATION 02/28/2024 [facility] DATE CREATED AUTHOR AUTHOR'S ORGANIZ ATION 03/03/2024 [facility] DATE CREATED AUTHOR AUTHOR'S ORGANIZ ATION 06/24/2024 [facility] DATE CREATED AUTHOR AUTHOR'S ORGANIZ ATION 07/15/2024 [facility] DATE CREATED AUTHOR AUTHOR'S ORGANIZ ATION 08/26/2024 [facility] DATE CREATED AUTHOR AUTHOR'S ORGANIZ ATION 08/28/2024 [facility] DATE CREATED AUTHOR AUTHOR'S ORGANIZ ATION 09/06/2024 [facility] DATE CREATED AUTHOR AUTHOR'S ORGANIZ ATION 10/15/2024 [facility] DATE CREATED AUTHOR AUTHOR'S ORGANIZ ATION 10/22/2024 [facility] DATE CREATED AUTHOR AUTHOR'S ORGANIZ ATION 10/24/2024 [facility] DATE CREATED AUTHOR AUTHOR'S ORGANIZ ATION 01/18/2025 [facility] DATE CREATED AUTHOR AUTHOR'S ORGANIZ ATION 01/27/2025 [facility] DATE CREATED AUTHOR AUTHOR'S ORGANIZ ATION 02/13/2025 [facility] DATE CREATED AUTHOR AUTHOR'S ORGANIZ ATION 02/15/2025 [facility] DATE CREATED AUTHOR AUTHOR'S ORGANIZ ATION 02/16/2025 [facility] DATE CREATED AUTHOR AUTHOR'S ORGANIZ ATION 02/18/2025 [facility] Care Team (unrecognized sect ion and content) [employer] Relationship Specialty Start Date End Date Yelena Michelle MD [address] [place] [address] [place] [address] PCP - General Internal Medicine 08/29/22 Team Status: Active Member Role Status Dates Yelena Michelle MD Primary Care Provider Active Team Status: Inactive Member Role Status Dates Yelena Michelle MD Primary Care Provider Active Dallin Contreras II, MD Attending Provider Active Team Status: Inactive Member Role Status Dates Yelena Michelle MD Primary Care Provider Active Avel Mcghee DO Attending Provider Active Team Status: Active Member Role Status Dates Yelena Michelle MD Primary Care Provider Active Roque Renee MD Attending Provider Active Mhd Ying Nick MD Referring Provider Active [employer] Relationship Specialty Start Date End Date Yelena Michelle MD [address] [place] [address] PCP - General Internal Medicine 02/06/23 [employer] Relationship Specialty Start Date End Date Yelena Michelle MD [address] [place] [address] PCP - General Internal Medicine 02/06/23 [employer] Relationship Specialty Start Date End Date Yelena Michelle MD [address] [place] [address] PCP - General Internal Medicine 02/06/23 [employer] Relationship Specialty Start Date End Date Yelena Michelle MD [address] [address] PCP - General Internal Medicine 02/06/23 [employer] Relationship Specialty Start Date End Date Yelena Michelle MD [address] [place] [address] PCP - General Internal Medicine 02/06/23 [employer] Relationship Specialty Start Date End Date Yelena Michelle MD [address] [place] [address] PCP - General Internal Medicine 02/06/23 [employer] Relationship Specialty Start Date End Date Yelena Michelle MD [address] [place] [address] PCP - General Internal Medicine 02/06/23 [employer] Relationship Specialty Start Date End Date Yeelna Michelle MD [address] [place] [address] PCP - General Internal Medicine 02/06/23 Team Status: Inactive Member Role Status Dates Yelena Michelle MD Primary Care Provider Active Start: August 08, 2024 End: August 08, 2024 Matthewjeremy Bravo DO Attending Provider Active S tart: August 08, 2024 End: August 08, 2024 Team Status: Inactive Member Role Status Dates Yelena Michelle MD Primary Care Provider Active Start: August 18, 2024 End: August 18, 2024 Matthewjeremy Bravo , DO Attending Provider Active S tart: August 18, 2024 End: August 18, 2024 Team Status: Inactive Member Role Status Dates Yelena Michelle MD Primary Care Provider Active Start: September 23, 2024 End: September 23, 2024 Matthewjeremy Bravo DO Attending Provider Active S tart: September 23, 2024 End: September 23, 2024 Team Status: Inactive Member Role Status Dates Yelena Michelle MD Primary Care Provider Active Start: October 03, 2024 End: October 03, 2024 Rex London MD Attending Provider Active Sta rt: October 03, 2024 End: October 03, 2024 Matthew Bravo DO Referring Provider Active S tart: October 03, 2024 End: October 03, 2024 Team Status: Inactive Member Role Status Dates Yelena Michelle MD Primary Care Provider Active Start: October 12, 2024 End: October 12, 2024 Rex London MD Attending Provider Active Sta rt: October 12, 2024 End: October 12, 2024 Team Status: Active Member Role Status Adolph Michelle MD Primary Care Provider Active Start: October 12, 2024 Rex London MD Attending Provider, Other Provider Active Start: October 12, 2024 Team Status: Inactive Member Role Status Adolph Michelle MD Primary Care Provider Active Start: October 19, 2024 End: October 19, 2024 Rex London MD Attending Provider Active Sta rt: October 19, 2024 End: October 19, 2024 Team Status: Inactive Member Role Status Adolph Michelle MD Primary Care Provider Active Start: November 01, 2024 End: November 01, 2024 Rex London MD Attending Provider Active Sta rt: November 01, 2024 End: November 01, 2024 Team Status: Active Member Role Status Adolph Michelle MD Primary Care Provider Active Start: November 01, 2024 Rex London MD Attending Provider Active Sta rt: November 01, 2024 Team Status: Inactive Member Role Status Adolph Michelle MD Primary Care Provider Active Start: November 09, 2024 End: November 09, 2024 Rex London MD Attending Provider Active Sta rt: November 09, 2024 End: November 09, 2024 Team Status: Inactive Member Role Status Adolph Michelle MD Primary Care Provider Active Start: December 06, 2024 End: December 06, 2024 Rex London MD Attending Provider Active Sta rt: December 06, 2024 End: December 06, 2024 Team Status: Active Member Role Status Adolph Michelle MD Primary Care Provider Active Start: December 06, 2024 Rex London MD Attending Provider Active Sta rt: December 06, 2024 Team Status: Inactive Member Role Status Adolph Michelle MD Primary Care Provider Active Start: December 12, 2024 End: December 12, 2024 Rex London MD Attending Provider Active Sta rt: December 12, 2024 End: December 12, 2024 Team Status: Inactive Member Role Status Adolph Michelle MD Primary Care Provider Active Start: December 21, 2024 End: December 21, 2024 Matthew Bravo DO Attending Provider Active S tart: December 21, 2024 End: December 21, 2024 Team Status: Inactive Member Role Status Adolph Michelle MD Primary Care Provider Active Start: December 27, 2024 End: December 27, 2024 Rex London MD Attending Provider Active Sta rt: December 27, 2024 End: December 27, 2024 Team Status: Active Member Role Status Adolph Michelle MD Primary Care Provider Active Start: December 27, 2024 Rex London MD Attending Provider Active Sta rt: December 27, 2024 Team Status: Inactive Member Role Status Adolph Michelle MD Primary Care Provider Active Start: January 11, 2025 End: January 11, 2025 Amberly Ortega NP Attending Provider Active Start: January 11, 2025 End: January 11, 2025 Team Status: Inactive Member Role Status Dates Yelena Michelle MD Primary Care Provider Active Start: February 13, 2025 End: February 13, 2025 Rex London MD Attending Provider Active Sta rt: February 13, 2025 End: February 13, 2025 REASON FOR VISIT (unrecogniz ed section and content) Reason Comments Dysuria Transfer from [facility] for urology consult, has kidney stone Back Pain Specialty Diagnoses / Procedures Referred By Contac t Referred To Contact Diagnoses Primary hypertension Tachycardia, paroxysmal (HCC) Procedures ECHO 2D WO Color Doppler Complete Luis Manuel Sam MD [address] [place] [address] Referral ID Status Reason Start Date Expiration Date V isits Requested Visits Authorized [id number] Pending Review 07/24/2022 07/24/2023 1 1 Reason Comments Follow-up Reason Comments Suspicious Skin Lesion Ordered Prescriptions (unrec ognized section and content) Prescription Sig Dispensed Refills Start Date End Da te metoprolol tartrate (LOPRESSOR) 25 MG tablet Take 1 tablet by mouth 2 times daily 60 tablet 0 07/23/2022 08/22/2022 amoxicillin-clavulanate (AUGMENTIN) 500-125 MG per tablet Take 1 tablet by mouth in the morning and at bedtime for 5 days 10 tablet 0 07/23/2022 07/28/2022 Scheduled Active and Recently Administ ered Medications (unrecognized section and content) Medication Order 07/22/2022 07/23/2022 07/24/2022 ceFAZolin (ANCEF) 2000 mg in sterile water 20 mL IV syringe (COMPLETED) 2,000 mg, IntraVENous, ONCE, 1 dose, On Thu07/23/22 at 1045, Antimicrobial Indications: Surgical Prophylaxis, Administer over 5 mins. 1050 (MAR Hold - Provider: Joselyn Autohold - Reason: Unreviewed Transfer Orders)1326 (Given - Provider: Jan aCbrera, EFREN)1327 (MAR Unhold - Provider: Jan Cabrera RN) cefTRIAXone (ROCEPHIN) 1,000 mg in sterile water 10 mL IV syringe 1,000 mg, IntraVENous, EVERY 24 HOURS, First dose on Thu07/23/22 at 1800, Until Discontinued, Antimicrobial Indications: Urinary Tract Infection, UTI duration of therapy: 5 days, Administer as slow IV Push over 5 mins Reconstitute 1 g vials with 9.6 mL of designated diluent to produce a 100 mg/mL solution. 1820 (Given - Provider: Mario Brooks RN) 1800 (Due) enoxaparin (LOVENOX) injection 40 mg 40 mg, SubCUTAneous, DAILY, First dose on Thu07/23/22 at 1400, Until Discontinued, Indication of Use: Prophylaxis-DVT/PE 1733 (Not Given - Provider: Mario Brooks RN - Reason: Contraindicated) 0852 (Not Given - Provider: Rebecca Schwab RN - Reason: Patient/family refused) furosemide (LASIX) injection 10 mg (COMPLETED) 10 mg, IntraVENous, ONCE, 1 dose, On Thu07/23/22 at 1930 2001 (Given - Provider: Rachele Stark RN) magnesium sulfate 2000 mg in 50 mL IVPB premix (COMPLETED) 2,000 mg, IntraVENous, at 25 mL/hr, Administer over 2 Hours, ONCE, On Rosmery 07/24/22 at 0745, For 1 dose, Recommended infusion rate not to exceed 1,000 mg (milligrams) per hour. 0924 (New Bag - Provider: Rebecca Schwab RN)1424 (Stopped - Provider: Rebecca Schwab RN) metoprolol (LOPRESSOR) injection 5 mg (COMPLETED) 5 mg, IntraVENous, ONCE, 1 dose, On Thu07/23/22 at 1845, DO NOT ADMINISTER IF HEART RATE LESS THAN 60 1830 (Given - Provider: Mario Brooks RN) metoprolol (LOPRESSOR) injection 5 mg (COMPLETED) 5 mg, IntraVENous, ONCE, 1 dose, On Thu07/23/22 at 2330, DO NOT ADMINISTER IF HEART RATE LESS THAN 60 2311 (Given - Provider: Rachele Stark, EFREN) metoprolol (LOPRESSOR) injection 5 mg (COMPLETED) 5 mg, IntraVENous, ONCE, 1 dose, On Rosmery 07/24/22 at 0015, DO NOT ADMINISTER IF HEART RATE LESS THAN 60 2359 (Given - Provider: Rachele Stark, EFREN) metoprolol tartrate (LOPRESSOR) tablet 25 mg 25 mg, Oral, 2 TIMES DAILY, First dose on Thu07/23/22 at 2100, Until Discontinued 2002 (Given - Provider: Rachele Stark, RN) 0851 (Given - Provider: Rebecca Schwab, EFREN)2099 (Due) potassium chloride (KLOR-CON M) extended release tablet 40 mEq (COMPLETED) 40 mEq, Oral, ONCE, 1 dose, On Rosmery 07/24/22 at 0745, Do not crush, chew, or suck on tablet. Tablet may also be broken in half and each half swallowed separately. 0852 (Given - Provid er: Rebecca Schwab RN) sodium chloride flush 0.9 % injection 5-40 mL 5-40 mL, IntraVENous, EVERY 12 HOURS SCHEDULED (2 times per day), First dose on Thu07/23/22 at 2100, Until Discontinued, For Line Patency: Peripheral IV = 5 mL; Midline or Central Line = 10 mL/lumen. If following IV push medication, administer flush at same rate as the IV push. Flush volume is determined by type of infusion therapy being given. For non-viscous solutions use: Peripheral IV = 5 mL Midline or Central Line = 10 mL/lumen For viscous solutions (i.e. blood components, parenteral nutrition, contrast media, or after obtaining blood sample) use: Peripheral IV = 10 mL Midline or Central Line = 20 mL/lumen 2002 (Given - Provider: Rachele Stark RN) 851 (Given - Provider: Rebecca Schwab RN)2099 (Due) Continuous Medication Order 07/22/2022 07/23/2022 07/24/2022 lactated ringers infusion (CANCELED) IntraVENous, at 100 mL/hr, CONTINUOUS, Starting on Thu07/23/22 at 1245, Pre-op (day of surgery) 1215 (New Bag - Provider: Savannah Sosa, RN) PRN Medication Order 07/22/2022 07/23/2022 07/24/2022 0.9 % sodium chloride infusion IntraVENous, at 5-250 mL/hr, PRN, if patient receiving piggyback infusions and maintenance fluids are not ordered OR KVO fluids to protect IV site / prevent frequent line interruptions/ long duration, Starting on Thu07/23/22 at 1335, For piggyback infusion, administer at same rate as piggyback for a total of 25 mL. Enter 25 mL into dose field and piggyback rate into rate field of order. If piggyback is infusing at a rate less than 100 mL/hr, enter 25 mL into dose field and 100 mL/hr into rate field of order. For KVO fluids, enter rate of 20 mL/hr or less into rate field of order. 0923 (New Bag - Provider: Rebecca Schwab RN) acetaminophen (TYLENOL) suppository 650 mg(Linked Group 1) 650 mg, Rectal, EVERY 6 HOURS PRN, Starting on Thu07/23/22 at 1335, Until Discontinued, Pain Mild (1-3), Fever, For temp greater than 100.4 F (38 C), Administer if oral route cannot be used. acetaminophen (TYLENOL) tablet 650 mg(Linked Group 1) 650 mg, Oral, EVERY 6 HOURS PRN, Starting on Thu07/23/22 at 1335, Until Discontinued, Pain Mild (1-3), Fever, For temp greater than 100.4 F (38 C), Maximum dose of acetaminophen is 4000 mg from all sources in 24 hours. magnesium hydroxide (MILK OF MAGNESIA) 400 MG/5ML suspension 30 mL 30 mL, Oral, DAILY PRN, Starting on Thu07/23/22 at 1335, Until Discontinued, Constipation, First line therapy for constipation. magnesium sulfate 2000 mg in 50 mL IVPB premix 2,000 mg, IntraVENous, at 25 mL/hr, Administer over 2 Hours, PRN, Other, Magnesium Replacement, Starting on Thu07/23/22 at 1341, Mg Lab Replacement Action 1.4-1.6 2 gram IVPB x 1 doses (2 grams total) 1.0-1.3 2 gram IVPB x 2 doses (4 grams total) Less than 1.0 CALL PHYSICIAN and 2 gram IVPB x 2 doses (4 grams total) Infuse at 1 gram/hr. Repeat Mag level next AM. Not for use in Patients with CrCl less than 30 mL/min. ondansetron (ZOFRAN) injection 4 mg(Linked Group 2) 4 mg, IntraVENous, EVERY 6 HOURS PRN, Starting on Thu07/23/22 at 1335, Until Discontinued, Nausea, Vomiting, Administer if oral route cannot be used. ondansetron (ZOFRAN-ODT) disintegrating tablet 4 mg(Linked Group 2) 4 mg, Oral, EVERY 8 HOURS PRN, Starting on Thu07/23/22 at 1335, Until Discontinued, Nausea, Vomiting potassium bicarb-citric acid (EFFER-K) effervescent tablet 40 mEq(Linked Group 3) 40 mEq, Oral, PRN, Starting on Thu07/23/22 at 1341, Until Discontinued, Per Potassium Replacement Protocol, Administer as alternative if patient unable to tolerate oral tablet. K Lab Replacement Action 3.1 to 3.5 40 mEq ORAL x 1 Under 3.1 Refer to IV replacement protocol Recheck K level in AM. Protocol not for use in patients with CrCl less than 30 mL/min. Do not chew or crush. Dissolve flavored tablets completely in 3 to 4 ounces of cold water; unflavored tablets may be dissolved in 3 to 4 ounces of cold juice. Patient to sip slowly over a 5 to 10 minute period. May further dilute if GI adverse effects occur. potassium chloride (KLOR-CON M) extended release tablet 40 mEq(Linked Group 3) 40 mEq, Oral, PRN, Starting on Thu07/23/22 at 1341, Until Discontinued, Potassium Replacement, May give alternative linked oral order (ordered as effervescent, packet, or liquid solution) if patient unable to tolerate tablet. K Lab Replacement Action 3.1 to 3.5 40 mEq ORAL x 1 Under 3.1 Refer to IV replacement protocol Recheck K level in AM. Protocol not for use in patients with CrCl less than 30 mL/min. potassium chloride 10 mEq/100 mL IVPB (Peripheral Line)(Linked Group 3) For doses greater than 10 mEq, change frequency to every one hour for x number of doses., 10 mEq, IntraVENous, PRN, Starting on Thu07/23/22 at 1341, Until Discontinued, at 100 mL/hr, Potassium Replacement, K Lab Replacement Action 2.7 to 3.0 10 mEq IVPB x 6 doses (60 mEq Total) Under 2.7 CALL PROVIDER and administer 10 mEq IVPB x 6 doses (60 mEq Total) Infuse at 10 mEq/hr. Repeat Potassium lab 1 hour after final administration. Protocol not for use in patients with CrCl less than 30 mL/min. sodium chloride flush 0.9 % injection 5-40 mL 5-40 mL, IntraVENous, PRN, Starting on Thu07/23/22 at 1335, Until Discontinued, Line Care, After every IV line use, For Line Patency: Peripheral IV = 5 mL; Midline or Central Line = 10 mL/lumen. If following IV push medication, administer flush at same rate as the IV push. Flush volume is determined by type of infusion therapy being given. For non-viscous solutions use: Peripheral IV = 5 mL Midline or Central Line = 10 mL/lumen For viscous solutions (i.e. blood components, parenteral nutrition, contrast media, or after obtaining blood sample) use: Peripheral IV = 10 mL Midline or Central Line = 20 mL/lumen sterile water for irrigation (CANCELED) PRN, Starting on Thu07/23/22 at 1329, Intra-op 1329 (Given - Provider: Tylro Delcid MD) No Frequency Medication Order 07/22/2022 07/23/2022 07/24/2022 ceFAZolin 2000 mg in 20 mL SWFI IV Syringe IV syringe (COMPLETED) Starting on Thu07/23/22 at 1044, For 1 dose, Deacon Gamez: cabinet override Administer over 5 mins. 1140 (Given - Provider: Michael Mcallister RN) Linked Groups Order Group 1: acetaminophen (TYLENOL) tablet 650 mgJump to med 650 mg, Oral, EVERY 6 HOURS PRN, Starting on Thu07/23/22 at 1335, Until Discontinued, Pain Mild (1-3), Fever, For temp greater than 100.4 F (38 C)
Maximum dose of acetaminophen is 4000 mg from all sources in 24 hours.
Or acetaminophen (TYLENOL) suppository 650 mgJump to med 650 mg, Rectal, EVERY 6 HOURS PRN, Starting on Thu07/23/22 at 1335, Until Discontinued, Pain Mild (1-3), Fever, For temp greater than 100.4 F (38 C)
Administer if oral route cannot be used.
Group 2: ondansetron (ZOFRAN-ODT) disintegrating tablet 4 mgJump to med 4 mg, Oral, EVERY 8 HOURS PRN, Starting on Thu07/23/22 at 1335, Until Discontinued, Nausea, Vomiting Or ondansetron (ZOFRAN) injection 4 mgJump to med 4 mg, IntraVENous, EVERY 6 HOURS PRN, Starting on Thu07/23/22 at 1335, Until Discontinued, Nausea, Vomiting
Administer if oral route cannot be used.
Group 3: potassium chloride (KLOR-CON M) extended release tablet 40 mEqJump to med 40 mEq, Oral, PRN, Starting on Thu07/23/22 at 1341, Until Discontinued, Potassium Replacement
May give alternative linked oral order (ordered as effervescent, packet, or liquid solution) if patient unable to tolerate tablet. K Lab Repla cemen t Action 3.1 to 3.5 40 mEq ORAL x 1 Under 3.1 Refer to IV replacement protocol Recheck K level in AM. Protocol not for use in patients with CrCl less than 30 mL/min.
Or potassium bicarb-citric acid (EFFER-K) effervescent tablet 40 mEqJump to med 40 mEq, Oral, PRN, Starting on Thu07/23/22 at 1341, Until Discontinued, Per Potassium Replacement Protocol
Administer as alternative if patient unable to tolerate oral tablet. K Lab Repla cemen t Action 3.1 to 3.5 40 mEq ORAL x 1 Under 3.1 Refer to IV replacement protocol Recheck K level in AM. Protocol not for use in patients with CrCl less than 30 mL/min. Do not chew or crush. Dissolve flavored tablets completely in 3 to 4 ounces of cold water; unflavored tablets may be dissolved in 3 to 4 ounces of cold juice. Patient to sip slowly over a 5 to 10 minute period. May further dilute if GI adverse effects occur.
Or potassium chloride 10 mEq/100 mL IVPB (Peripheral Line)Jump to med For doses greater than 10 mEq, change frequency to every one hour for x number of doses.
10 mEq, IntraVENous, PRN, Starting on Thu07/23/22 at 1341, Until Discontinued, at 100 mL/hr, Potassium Replacement
K Lab Replacement Action 2.7 to 3.0 10 mEq IVPB x 6 doses (60 mEq Total) Under 2.7 CALL PROVIDER and administer 10 mEq IVPB x 6 doses (60 mEq Total) Infuse at 10 mEq/hr. Repeat Potassium lab 1 hour after final administration. Protocol not for use in patients with CrCl less than 30 mL/min.
Goals (unrecognized section and content) Goals may be documented in a n alternate section FOR RECORDS PERTAINING TO PATIENTS WHO ARE OR HAVE BEEN ENROLLED IN A CHEMICAL DEPENDENCY/SUBSTANCEABUSE PROGRAM, SOME INFORMATION MAY BE OMITTED. This clinical summary was aggregated from multiple sources. Caution should be exercised in using it in the provision of clinical care. This summary normalizes information from multiple sources, and as a consequence, information in this document may materially change the coding, format and clinical context of patient data. In addition, data may be omitted in some cases. CLINICAL DECISIONS SHOULD BE BASED ON THE PRIMARY CLINICAL RECORDS. [employer] provides no warranty or guarantee of the accuracy or completeness of information in this document."
== END 2025-02-18 12:55 | disposition home or self-care (01) ==
PROVIDERS: PCP Internal Medicine; Visit Provider Physician Assistant
DX: N20.0 Calculus of kidney (principal)
CPT/HCPCS: 74018